=== PATIENT | female | born 1935 | race Caucasian/White ===

== ENCOUNTER 2019-04-16 09:25 | Outpatient (CLI) | payer MEDICARE, OTHER, SELFPAY ==
--- NOTE | 2019-04-19 08:04 | ONC FU_ITS ---
Dr. Muñoz Patient Follow-Up Note Patient: Alta Red Unit #: [id number]: 1935 Dicatated By: Kris Muñoz M.D.Date of Visit:Apr 16, 2019 Onc Med Follow-up/Prog Note Chief Complaint: Myeloma. History of Present Illness: This is an 83 year-old woman with IgG kappa myeloma. She had presented to Dr. Nieto on 10/24/2017 with complaints of dizziness/lightheadedness, fatigue, and anorexia. She reported that at times she felt like passing out and having to lie down. She reported having problems with memory and she complained that she had been sleeping a lot. Her CBC showed low hemoglobin at 8.8 g, white blood cell count borderline at 4300 and platelet count mildly decreased at 103,000. Her comprehensive metabolic profile showed elevated BUN and creatinine at 23 and 1.42 mg/dL and significantly elevated serum calcium at 14.5 mg/dL with albumin low at 2.5 g/dL. The calculated serum globulin was significantly elevated at 7.9 g/dL. Bone marrow aspiration/biopsy on 10/27/2017 showed hypercellular marrow with 63% plasma cells, consistent with myeloma. At that time, she was given an infusion of sodium pamidronate for the hypercalcemia, and she also was given dexamethasone 40 mg daily for 4 days. Skeletal survey on 10/27/2017 showed evidence of diffuse bone demineralization but without evidence of large osteolytic lesion. Subcentimeter lucent foci in the [place] bilaterally were felt to be consistent with osteoporosis, myelomatous lesions, or metastatic disease. Serum protein electrophoresis and 11/20/2017 showed IgG kappa paraprotein quantitating at 4.1 g/dL. The free light chain assay showed elevated free kappa light chain at 228.24 mg/L with elevated kappa/lambda ratio at 17.40. She returned on 11/16/2017 to begin treatment with Velcade/Revlimid/dexamethasone. I opted to use a weekly Velcade regimen on a 21/28 day schedule. Due to her age and renal function, the Revlimid was initiated at a reduced dosage of 10 mg daily for 21 days. The dexamethasone was reduced to 20 mg weekly. At that time, her calcium had become elevated again at 10.3 mg/dL with albumin 2.2 g/dL. Her renal function had improved with creatinine down to 1.0 mg/dL. As such, she was given zoledronic acid 3.5 mg by IV infusion. On 11/20/2017 she came in with a 2-day history of fever and chills. A specific source of infection was not identified other than her chest x-ray was suspicious for possible pneumonia. She was treated empirically with Levaquin, I did opt to put her Revlimid on hold, as she also was having diarrhea at that point. Her follow-up CBC on 11/23/2017 showed further decline in hemoglobin to 6.4 g, and the following day she was transfused 2 units of PRBC. She did receive her day 8 Velcade, and she was able to return for day 15 Velcade on 11/29/2017. Hemoglobin at that point was adequate at 9.9 g. She then continued her 2nd cycle on 12/13/2017 with the Revlimid omitted. The Velcade was again administered weekly for 3 weeks, and the dexamethasone was changed to 20 mg twice weekly. A repeat protein electrophoresis on 12/25/2017 showed significant improvement with the M protein quantitating at 0.73 g/dL. She then continued with cycle 3 of Velcade/dexamethasone on 01/11/2018, with cycle 4 on 02/07/2018, with cycle 5 on 03/06/2018, and with cycle 6 on 04/04/2018. Her repeat serum protein electrophoresis on 05/01/2018 showed 2 monoclonal protein bands which together quantitated at 0.21 g/dL compared to 0.31 g/dL on 03/06/2018. The serum free light chain assay showed normal kappa light chain at 1.28 mg/dL and normal lambda light chain at 1.52 mg/dL with the kappa/lambda ratio normal at 0.8421. She was seen for a follow-up visit on 05/02/2018, and she then began maintenance Revlimid at 5 mg daily. As of 05/29/2018 the Revlimid was put on hold due to worsening skin eruption. The skin eruption had initially continued to worsen somewhat after stopping the Revlimid, but it then gradually resolved. I had seen her for a follow-up visit on 07/17/2018. At that point she had only minimal residual M protein. She appeared stable clinically, and given the side effects she experienced with her treatment, I opted to just follow her on observation/expectant management. Her other medical illnesses include hypertension, type II diabetes with peripheral neuropathy, and degenerative arthritis. She is a nonsmoker. INTERIM HISTORY: She is seen for a scheduled visit. She has been feeling pretty good generally. Her energy is medium. She is able to do light work. ECOG score is 1. She has good appetite. Her weight has been stable. About a month ago she had a slight fever with cold. She has no hot flashes or night sweats. She has a little hacky cough. She has no shortness of breath or chest pain. She has no GI/ complaints. Bowel function remains adequate with stool softeners. She currently has no significant joint or bone pain. She sometimes has dizziness. She has neuropathy in her feet. Medications: Acetaminophen Tablet Oral PRN, AmLODIPine Besylate 1 Tablet (of 5 mg) Oral every am, Aspirin 1 (325 mg) Tablet Oral daily, Grass Fed Beef 3 (500 mg) Tablet Oral b.i.d., HydroCHLOROthiazide 1 (25 mg) Tablet Oral, Meloxicam 1 Tablet (of 15 mg) Oral daily, MetFORMIN HCl 1 Tablet (of 500 mg) Oral daily, Multivitamin Women 50+ 1 Tablet Oral daily, Potassium Chloride ER 1 Capsule (of 10 meq) Capsule, controlled release Oral daily, PreserVision AREDS 2 Tablet Oral daily, raNITIdine HCl 1 (150 mg) Tablet Oral b.i.d., Senna S 1 - 2 Tablet (of 8.6-50 mg) Oral daily, Synthroid 1 Tablet (of 150 mcg) Oral daily Allergies: EKG patches and Lisinopril. Review of Systems: Constitutional - Her energy is medium. She is doing light housework. Her appetite is good. Her weight is stable. About a month ago she had a slight fever with a cold. She has no hot flashes or night sweats. ECOG score is 1, ENMT - No sinus congestion/drainage. No mouth sores. No sore throat or difficulty swallowing, Hematologic/Lymphatic - She has some bruising on her arms, Respiratory - No shortness of breath. She has a little bit of hacky cough. No pleuritic pain or hemoptysis, Cardiovascular - No angina pain. No palpitations, Gastrointestinal - No nausea or vomiting. No heartburn or acid reflux. Her bowel function remains adequate with stool softeners. No blood in the stool or black stools, Genitourinary (F) - No dysuria or hematuria. No urinary frequency. No urgency or incontinence, Musculoskeletal - No significant joint or bone pain, Integumentary - No skin rash, Neurologic - No headache. She has some dizziness. She has neuropathy in her feet, Psychiatric - No anxiety or depression. No insomnia. Vital Signs: Performed on Apr 16, 2019 12:49 Height - 66.00 in Weight - 178 lbs (HIGH) BSA - 1.90 sq.m BMI - 28.73 Temperature - 98.5 F Pulse - 86 /min Respiration - 16 /min BP - 119/76 mm(hg) O2 Sat - 98 % Pain - 0 Physical Examination: Constitutional - She looks pretty good generally, Eyes - Sclerae nonicteric. Conjunctivae clear, ENMT - No lesions noted in the oral cavity, Hematologic/Lymphatic - No cervical, clavicular, or axillary adenopathy, Respiratory - Lungs are clear with good air movement bilaterally, Cardiovascular - Heart rhythm is regular with fairly frequent premature beats. There is a II/ systolic murmur. There is no gallop or rub noted, Abdomen - Soft. Liver and spleen are not enlarged. There is no abdominal mass or ascites noted and there is no inguinal adenopathy, Extremities - Slight edema, Integumentary - No evidence of skin eruption, Neurologic - No focal neurologic deficits noted. Lab/Imaging: Test performed on Apr 09, 2019 09:52 Sed Rate 56 mm/hr WBC 5.5 10^9/L RBC 3.85 10^12/L HGB 11.6 g/dL HCT 35.1 % MCV 91.2 fl MCH 30.1 pg MCHC 33.0 g/dL RDW 14.3 % Platelet Count 179 10^9/L MPV 10.1 fL Neutrophils (Gran) 2.56 10^9/L Lymphocytes 2.27 10^9/L Monocytes 0.42 10^9/L Eosinophils 0.20 10^9/L Basophils 0.01 10^9/L Manual Lymphocytes 42 % Manual Monocytes 8 % Manual Eosinophils 4 % Manual Basophils 0 % [place] / Lambda Ratio 8.65 Absolute Value Lambda Light Chain (Quant) 12.17 mg/dL [place] Light Chain (Quant) 105.21 mg/dL Her serum protein electrophoresis shows a significant increase in the monoclonal protein quantitating at 2.11 g/dL. Impression: 1. Patient with IgG kappa myeloma. Her bone marrow aspiration/biopsy on 10/27/2017 was hypercellular with 63% plasma cells. 2. She had anemia, renal dysfunction, and symptomatic hypercalcemia at initial presentation. Her skeletal survey showed diffuse bone demineralization, but without evidence of any large osteolytic lesions. Her other medical illnesses include: 3. Hypertension. 4. Type II diabetes. 5. Peripheral neuropathy. 6. Degenerative arthritis. 7. She has a history of nephrolithiasis. She had some improvement on initial treatment with sodium pamidronate and 4 days of high-dose dexamethasone. She then began treatment with Velcade/Revlimid/dexamethasone on 11/16/2017. The Revlimid was initiated at a reduced dosage of 10 mg daily on a 21/28 day schedule with the Velcade and dexamethasone administered weekly. At that time she also received an infusion of zoledronic acid. Her 1st cycle of treatment was complicated by a febrile illness and diarrhea. She also developed pancytopenia with worsening anemia, requiring PRBC transfusion. I was uncertain to what extent her problems may have been due to the treatment or to the underlying myeloma. Her Revlimid was put on hold at day 4. She was then able to continue treatment with Velcade and dexamethasone. As of 04/04/2018 she began her 6th cycle of treatment. Her repeat serum protein electrophoresis on 05/01/2018 showed 2 monoclonal bands which together quantitated at 0.21 g/dL. The serum free light chain assay showed normal kappa/lambda ratio. Her hemoglobin was stable at 11.2 g. As of her follow-up visit on 05/02/2018 she was still having some fatigue, but she otherwise appeared stable clinically. She then began maintenance Revlimid at 5 mg daily. It was put on hold as of 05/29/2018 due to worsening skin eruption. The skin eruption subsequently did resolve, though gradually. As of her follow-up visit in June 2018 she had only a very small amount of residual M protein, and she appeared stable clinically. Given the side effects she had experienced with her treatment, I opted to just follow her on observation/expectant management. During her subsequent follow-up her clinical status has remained stable. However, there has now been slight drop in her hemoglobin/hematocrit levels, and her protein electrophoresis studies show a significant increase in her M protein, now to 2.11 g/dL, and a significant increase in the kappa free light chain, now to 105.21 mg/L, with the kappa/lambda ratio elevated at 8.65. This is obviously consistent with progression of the myeloma. Plan: She will now proceed to a second line treatment regimen for the myeloma. I would favor using daratumumab in combination with carfilzomib and dexamethasone, but that we will be subject to verification of insurance coverage. Signed By: Kris Muñoz M.D. <<Signature on File>>
== END 2019-04-16 09:26 | disposition home or self-care (01) ==
PROVIDERS: Family Provider Family Medicine; PCP Family Medicine; Visit Provider Internal Medicine Medical Oncology
DX: C90.00 Multiple myeloma not having achieved remission (principal); M81.0 Age-related osteoporosis without current pathological fracture; I10 Essential (primary) hypertension; E11.42 Type 2 diabetes mellitus with diabetic polyneuropathy; Z79.84 Long term (current) use of oral hypoglycemic drugs; Z79.899 Other long term (current) drug therapy; Z87.442 Personal history of urinary calculi
CPT/HCPCS: 99214

== ENCOUNTER 2019-05-03 09:19 | Outpatient (CLI) | payer MEDICARE, OTHER, SELFPAY ==
--- NOTE | 2019-05-03 09:38 | USCV_ITS ---
Alta Red Age: 83 Gender: F : 1935 Exam Date: 05/03/2019 09:55 Ordering Phys: Kris Muñoz MD Technologist: Luba Stinson Exam Location: [facility] – [place] Indication: CHEMO BP: / HR: 83 Rhythm: Sinus Technical Quality: Adequate MEASUREMENTS (Male / Female) Normal Values 2D ECHO LV Diastolic Diameter PLAX 4.5 cm 4.2 - 5.9 / 3.9 - 5.3 cm LV Systolic Diameter PLAX 3.1 cm LV Chamber Size 3.6 cm IVS Diastolic Thickness 1.1 cm 0.6 - 1.0 / 0.6 - 0.9 cm IVS Systolic Thickness 1.2 cm LVPW Diastolic Thickness 1.3 cm 0.6 - 1.0 / 0.6 - 0.9 cm LVPW Systolic Thickness 1.5 cm RV Chamber Size 2.8 cm LVOT Diameter 2.0 cm LV Ejection Fraction 2D Teich 60.0 % LV Ejection Fraction MOD 2C 50.1 % LV Ejection Fraction 2C AL 51.2 % LA Diameter 4.2 cm LA Width 2.6 cm LA Height 3.6 cm RA Width 3.1 cm RA Height 3.4 cm Aorta at Sinotubular Diameter 3.0 cm M-MODE LV Diastolic Diameter MM 5.2 cm 4.2 - 5.9 / 3.9 - 5.3 cm LV Systolic Diameter MM 3.6 cm LV Ejection Fraction MM Teich 58.9 % IVS Diastolic Thickness MM 1.2 cm 0.6 - 1.0 / 0.6 - 0.9 cm IVS Systolic Thickness MM 1.3 cm LVPW Diastolic Thickness MM 1.7 cm 0.6 - 1.0 / 0.6 - 0.9 cm LVPW Systolic Thickness MM 2.6 cm RV Diastolic Diameter MM 1.7 cm Aortic Annulus Diameter 3.5 cm LA Ao Ratio MM 1.2 MV E Point Septal Separation 0.4 cm DOPPLER AV Peak Velocity 131.0 cm/s LVOT Peak Velocity 121.0 cm/s AV Area Cont Eq vti 3.1 cm squared AV Area Cont Eq pk 3.0 cm squared MV Area PHT 5.9 cm squared Mitral E to A Ratio 0.7 MV E' Velocity 5.0 cm/s Mitral E to MV E' Ratio 16.8 Mitral E to LV E' Lateral Ratio 15.9 Mitral E to LV E' Septal Ratio 18.2 TR Peak Velocity 196.4 cm/s TR Peak Gradient 15.4 mmHg TR Mean Velocity 125.9 cm/s TR Mean Gradient 8.0 mmHg TR Velocity Time Integral 41.4 cm TV Peak E Velocity 75.0 cm/s Right Atrial Pressure 3.0 mmHg Pulmonary Artery Systolic Pressu 18.4 mmHg PV Peak Velocity 100.0 cm/s RV Acceleration Time 0.1 s RV Ejection Time 0.3 s RV AcT/ET 0.4 FINDINGS Left Ventricle Normal left ventricular cavity size. Severe left ventricular hypertrophy of concentric type.left ventricular ejection fraction is estimated at 58 %. No regional wall motion abnormalities. Grade I/IV diastolic dysfunction (abnormal relaxation filling pattern), normal to mildly elevated filling pressures. There appeared to be hyperdynamic cavity with obliteration. Right Ventricle The right ventricle is normal in size and function. Right Atrium The right atrium is normal in size. Left Atrium The left atrium is normal in size. Mitral Valve Structurally normal mitral valve without significant stenosis or prolapse. There is no mitral regurgitation. Aortic Valve Structurally normal aortic valve without significant sclerosis or stenosis. There is no aortic regurgitation. Tricuspid Valve Structurally normal tricuspid valve without significant stenosis or regurgitation. Pulmonary artery systolic pressure is normal. Pulmonic Valve Structurally normal pulmonic valve without significant stenosis. There is no pulmonic regurgitation. Pericardium Normal pericardium without effusion. Aorta Normal ascending aorta dimension. CONCLUSIONS 1-Normal left ventricular cavity size. Severe left ventricular hypertrophy of concentric type.left ventricular ejection fraction is estimated at 58 %. No regional wall motion abnormalities. Grade I/IV diastolic dysfunction (abnormal relaxation filling pattern), normal to mildly elevated filling pressures. There appeared to be hyperdynamic cavity with obliteration. 2-There is no pericardial effusion. 3-No significant valve abnormalities. 4-Pulmonary artery systolic pressure is within normal limits. 5-Right atrial pressure is around 5 mm of mercury. 6-There are no prior echocardiogram studies to compare. Cristal Dillon MD (Electronically Signed) Final Date: 04 May 2019 16:47 S
== END 2019-05-03 09:20 | disposition home or self-care (01) ==
LOC: RAD 09:22
PROVIDERS: Family Provider Family Medicine; PCP Family Medicine; Visit Provider Internal Medicine Medical Oncology
DX: Z79.899 Other long term (current) drug therapy (principal); I51.9 Heart disease, unspecified; I51.7 Cardiomegaly
CPT/HCPCS: 93306

== ENCOUNTER 2019-05-15 08:11 | Outpatient (RCR) | payer MEDICARE, SELFPAY ==
[2019-05-13 16:18] LABS: Basophils % 0.3 %; Eosinophils # 0.2 10^3/uL (0.0-0.8); Eosinophils % 3.1 %; Hematocrit 34.9 % (37.0-47.0); Hemoglobin 11.1 g/dL (11.5-15.3); Lymphocytes # 2.7 10^3/uL (0.8-4.8); Lymphocytes % 43.5 %; Mean Corpuscular HGB Conc 31.8 g/dL (30.0-36.0); Mean Corpuscular Hemoglobin 30.1 pg (28.0-34.0); Mean Corpuscular Volume 94.6 fL (81-99); Mean Platelet Volume 11.1 fL (7.4-10.4); Monocytes # 0.7 10^3/uL (0.2-0.9); Monocytes % 10.6 %; Neutrophils # 2.6 10^3/uL (1.8-7.7); Neutrophils % 42.2 %; Nucleated Red Blood Cells % 0 %; Platelet Count 179 10^3/cmm (130-400); Red Blood Count 3.69 10^6/uL (4.1-5.3); Red Cell Distribution Width 13.9 % (12.1-15.1); White Blood Count 6.1 10^3/uL (4.0-10.0)
[2019-05-13 18:12] LABS: Alanine Aminotransferase 15 U/L (0-33); Albumin Level 3.2 g/dL (3.5-5.2); Alkaline Phosphatase 79 IU/L (35-105); Anion Gap 16.4 (5-19); Aspartate Amino Transferase 30 U/L (0-32); Blood Urea Nitrogen 21 mg/dL (8-23); Calcium 10.6 mg/dL (8.5-10.5); Carbon Dioxide 23 mmol/L (22-29); Chloride 106 mmol/L (98-107); Globulin 5.2 g/dL (1.3-4.6); Glucose 88 mg/dL (65-115); Immunoglobulin IGA 81 mg/dL (70-400); Immunoglobulin IGG 4019 mg/dL (700-1600); Immunoglobulin IGM 38 mg/dL (40-230); Osmolality Calculated 288 mOsm/kg (285-295); Potassium 4.4 mmol/L (3.5-5.1); Sodium 141 mmol/L (136-145); Total Bilirubin 0.5 mg/dL (0.15-1.2); Total Protein 8.4 g/dL (6.6-8.7)
[2019-05-14] MEDS: sodium chloride 0.9% 1,000 mL Bolus 100 ML IV (10:20)
[2019-05-14] MEDS: acetaminophen 325 mg Tablet 650 MG PO (10:20)
[2019-05-14] MEDS: dexamethasone 20 MG in sodium chloride 0.9% 50 ML 188 MG IV (10:36)
[2019-05-14] MEDS: LORazepam 2 mg/mL INJ 1 mL IVP (12:07)
[2019-05-15 07:27] LABS: PROTEIN, TOTAL 7.8 g/dL (6.1-8.1)
--- NOTE | 2019-05-15 10:01 | ONC FU_ITS ---
[facility] Patient Note Patient: Alta Red Unit #: [id number]: 1935 Dictated By: Otto SueDate of Visit: May 14, 2019 Onc MED Follow-Up/Prog Note Chief Complaint: Myeloma. History of Present Illness: Mrs Red is an 83 year-old woman with IgG kappa myeloma. She had presented to Dr. Nieto on 10/24/2017 with complaints of dizziness/lightheadedness, fatigue, and anorexia. She reported that at times she felt like passing out and having to lie down. She reported having problems with memory and she complained that she had been sleeping a lot. Her CBC showed low hemoglobin at 8.8 g, white blood cell count borderline at 4300 and platelet count mildly decreased at 103,000. Her comprehensive metabolic profile showed elevated BUN and creatinine at 23 and 1.42 mg/dL and significantly elevated serum calcium at 14.5 mg/dL with albumin low at 2.5 g/dL. The calculated serum globulin was significantly elevated at 7.9 g/dL. Bone marrow aspiration/biopsy on 10/27/2017 showed hypercellular marrow with 63% plasma cells, consistent with myeloma. At that time, she was given an infusion of sodium pamidronate for the hypercalcemia, and she also was given dexamethasone 40 mg daily for 4 days. Skeletal survey on 10/27/2017 showed evidence of diffuse bone demineralization but without evidence of large osteolytic lesion. Subcentimeter lucent foci in the [place] bilaterally were felt to be consistent with osteoporosis, myelomatous lesions, or metastatic disease. Serum protein electrophoresis and 11/20/2017 showed IgG kappa paraprotein quantitating at 4.1 g/dL. The free light chain assay showed elevated free kappa light chain at 228.24 mg/L with elevated kappa/lambda ratio at 17.40. She returned on 11/16/2017 to begin treatment with Velcade/Revlimid/dexamethasone. Dr Muñoz opted to use a weekly Velcade regimen on a 21/28 day schedule. Due to her age and renal function, the Revlimid was initiated at a reduced dosage of 10 mg daily for 21 days. The dexamethasone was reduced to 20 mg weekly. At that time, her calcium had become elevated again at 10.3 mg/dL with albumin 2.2 g/dL. Her renal function had improved with creatinine down to 1.0 mg/dL. As such, she was given zoledronic acid 3.5 mg by IV infusion. On 11/20/2017 she came in with a 2-day history of fever and chills. A specific source of infection was not identified other than her chest x-ray was suspicious for possible pneumonia. She was treated empirically with Levaquin, it was opted to put her Revlimid on hold, as she also was having diarrhea at that point. Her follow-up CBC on 11/23/2017 showed further decline in hemoglobin to 6.4 g, and the following day she was transfused 2 units of PRBC. She did receive her day 8 Velcade, and she was able to return for day 15 Velcade on 11/29/2017. Hemoglobin at that point was adequate at 9.9 g. She then continued her 2nd cycle on 12/13/2017 with the Revlimid omitted. The Velcade was again administered weekly for 3 weeks, and the dexamethasone was changed to 20 mg twice weekly. A repeat protein electrophoresis on 12/25/2017 showed significant improvement with the M protein quantitating at 0.73 g/dL. She then continued with cycle 3 of Velcade/dexamethasone on 01/11/2018, with cycle 4 on 02/07/2018, with cycle 5 on 03/06/2018, and with cycle 6 on 04/04/2018. Her repeat serum protein electrophoresis on 05/01/2018 showed 2 monoclonal protein bands which together quantitated at 0.21 g/dL compared to 0.31 g/dL on 03/06/2018. The serum free light chain assay showed normal kappa light chain at 1.28 mg/dL and normal lambda light chain at 1.52 mg/dL with the kappa/lambda ratio normal at 0.8421. She was seen for a follow-up visit on 05/02/2018, and she then began maintenance Revlimid at 5 mg daily. As of 05/29/2018 the Revlimid was put on hold due to worsening skin eruption. The skin eruption had initially continued to worsen somewhat after stopping the Revlimid, but it then gradually resolved. Dr Muñoz had seen her for a follow-up visit on 07/17/2018. At that point she had only minimal residual M protein. She appeared stable clinically, and given the side effects she experienced with her treatment, it was opted to just follow her on observation/expectant management. Her other medical illnesses include hypertension, type II diabetes with peripheral neuropathy, and degenerative arthritis. She is a nonsmoker. INTERIM HISTORY: At her follow-up visit on April 16, 2019, it was noted that her hemoglobin had slightly dropped but her myeloma proteins had significantly elevated with the M protein was reported at 2.11 and kappa free light chain was 105.21 (69.66 at her December 2018 visit) and the kappa/lambda ratio was elevated at 8.65 (3.66 at the December 2018 visit). Dr. Muñoz recommended resuming treatment but with daratumumab and carfilzomib and dexamethasone. Authorization was obtained from her insurance. Mrs. Red is here today to begin her first cycle of daratumumab carfilzomib and dexamethasone. She does not have a venous access device as of yet but states Dr. Muñoz had mentioned it to her. She states overall she feels pretty good. She denies any new pain. She has had no fever or chills or any signs of infection for at least the last 72 hours. She states she is eating good. She does have occasional shortness of breath but states is no different than what it normally is for her. She indicates that her bowels and bladder are normal as well. She continues to have slight neuropathy in her feet but states is no worse. She can do all of her ADLs without any assistance. Overall she looks really good and states that she feels good. She does admit admit that she does tire pretty easily but does rest and recovers well with that. Her ECOG is 1. Past Medical History: Degenerative arthritis Hypertension Hypothyroidism Nephrolithiasis Peripheral neuropathy Type II diabetes Past Surgical History: Breast reduction Excision of Adler's neuroma x 3 Hysterectomy Left bunionectomy Lithotripsy for renal stones in 1959 and in 1989 Tonsillectomy Flu shot in 2018 D&C in 2012 Hysterectomy without oophorectomy in 2011 Right total hip arthroplasty in 2011 Laparoscopic cholecystectomy in 1991 Breast reduction in 1983 Cholecystectomy in 1982 Thyroidectomy in 1959 Allergies: EKG patches, Lisinopril, and revlimd. Medications: Acetaminophen Tablet Oral PRN AmLODIPine Besylate 1 Tablet (of 5 mg) Oral every am Aspirin 1 (325 mg) Tablet Oral daily Grass Fed Beef 3 (500 mg) Tablet Oral b.i.d. HydroCHLOROthiazide 1 Tablet (of 25 mg) Oral daily on Every Other Day Meloxicam 1 Tablet (of 15 mg) Oral daily MetFORMIN HCl 1 Tablet (of 250 mg) Oral daily Multivitamin Women 50+ 1 Tablet Oral daily Omeprazole 1 Tablet (of 20 mg) Tablet, enteric coated Oral daily Potassium Chloride ER 1 Capsule (of 10 meq) Capsule, controlled release Oral daily PreserVision AREDS 2 Tablet Oral daily Senna S 1 - 2 Tablet (of 8.6-50 mg) Oral daily Synthroid 1 Tablet (of 150 mcg) Oral daily Family History: Ms. Red's mother at age 83: congestive heart failure. Ms. Red's father is alive. Ms. Red has 1 brother who is alive. She has 2 sisters: 2 alive. Father is still living at age 103. Mother with congestive heart failure at age 83. She also had been treated for breast cancer, renal cell cancer, and uterine cancer. One brother and two sisters are in good health. Social History: Ms. Red is and she is retired. Ms. Red has never smoked. She has no history of drinking. She is a nonsmoker. She does not drink alcohol. Review Of Symptoms: Constitutional Denies fevers, chills, night sweats, excessive fatigue or weight loss. Allergic/Immunologic No reactions. Eyes Denies significant visual changes. No diplopia. No amaurosis. ENMT Denies changes in hearing, sore throat, mouth sores, difficulty or changes in swallowing ability, and/or sinus drainage. Endocrine No diabetes, thyroid disease or hormone replacement. Denies hot flashes or night sweats. Hematologic/Lymphatic Denies easy bruising or bleeding. The patient denies any tender or palpable lymph nodes. Respiratory Stable dyspnea on exertion, but denies chest pain, cough or hemoptysis. Denies orthopnea. Cardiovascular Denies anginal chest pain, palpitations or orthopnea. Gastrointestinal Denies nausea, vomiting, diarrhea, GI bleeding, or constipation. Denies change in bowel habits and/or stool color, or early satiety. Genitourinary (F) No hematuria, hesitancy, incontinence, vaginal bleeding, discharge or other problems with urination. Musculoskeletal Denies joint pain or redness. No decreased range of motion. Integumentary Denies chronic rashes, inflammation, ulcerations or skin changes. Neurologic Denies headache, blurred vision, and no areas of focal weakness or numbness. Normal gait. No sensory problems. Psychiatric Denies insomnia, depression, marylin or mood swings. Vital Signs: Performed on May 14, 2019 09:16 Height - 66.00 in Weight - 182.0 lbs (HIGH) BSA - 1.92 sq.m BMI - 29.38 Temperature - 98.6 F Pulse - 80 /min Respiration - 18 /min BP - 146/62 mm(hg) (HIGH) O2 Sat - 97 % Pain - 0,1 - No physically strenuous activity, but ambulatory and able to carry out light or sedentary work (e.g. office work, light house work). (ECOG) Physical Examination: Constitutional Alert, oriented, no acute distress. Skin pink, warm and dry. Head Normocephalic; atraumatic. Eyes Conjunctivae and sclerae are clear and without icterus. Pupils are reactive and equal. ENMT Sinuses are nontender. No oral exudates, ulcers, masses, thrush or mucositis. Oropharynx clear. Tongue normal. Neck Supple without masses or thyromegaly. No jugular venous distension. Hematologic/Lymphatic No petechiae or purpura. No tender or palpable lymph nodes in the cervical or supraclavicular areas. Respiratory Lungs are clear to auscultation without rhonchi or wheezing. Cardiovascular Regular rate and rhythm of heart without murmurs,clicks, gallops or rubs. Back/Spine Non-tender to palpation. Extremities No visible deformities, no cyanosis, clubbing or edema. Musculoskeletal No tenderness or swelling, normal range of motion without obvious weakness. Integumentary No rashes or lesions.-see above Neurologic No sensory or motor deficits, normal cerebellar function, normal gait. Psychiatric Alert and oriented times three. Coherent speech. Verbalizes understanding of our discussions today. Laboratory:Test performed on May 13, 2019 07:55 WBC 6.1 10 3/uL RBC 3.69 10 6/uL HGB 11.1 g/dL HCT 34.9 % MCV 94.6 fL MCH 30.1 pg MCHC 31.8 g/dL RDW 13.9 % Platelet Count 179 10 3/cmm MPV 11.1 fL Neutrophils 2.6 10 3/uL Lymphocytes 2.7 10 3/uL Monocytes 0.7 10 3/uL Eosinophils 0.2 10 3/uL Basophils 0.0 10 3/uL Neutrophil % 42.2 % Lymphocyte % 43.5 % Monocyte % 10.6 % Eosinophil % 3.1 % Basophils % 0.3 % Test performed on Apr 09, 2019 10:09 Glucose 169 mg/dL Protein, Total 7.9 g/dL Albumin, SPE 3.61 g/dL BUN 21 mg/dL Creatinine 0.79 mg/dL Cr Clearance (Est) 69.98 mL/min Sodium 140 mmol/L Potassium 3.7 mmol/L Chloride 104 mmol/L CO2 23 mmol/L Calcium 10 mg/dL Albumin 3.2 g/dL Bilirubin, Total 0.4 mg/dL Alkaline Phosphatase 104 IU/L AST (SGOT) 30 IU/L ALT (SGPT) 15 IU/L [id number]-9-[id number] 0.26 g/dL Zjxby-2-xyvpcusu 0.77 g/dL Beta Globulin 0.86 g/dL Gamma Globulin 2.38 g/dL M-David 2.11 g/dL SPE Interpretation Significant increase in monoclonal proteinemia since prior study. Test performed on Apr 09, 2019 09:52 Sed Rate 56 mm/hr Manual Lymphocytes 42 % Manual Monocytes 8 % Manual Eosinophils 4 % Manual Basophils 0 % [place] / Lambda Ratio 8.65 Absolute Value Lambda Light Chain (Quant) 12.17 mg/dL [place] Light Chain (Quant) 105.21 mg/dL Impression: 1. Patient with IgG kappa myeloma. Her bone marrow aspiration/biopsy on 10/27/2017 was hypercellular with 63% plasma cells. 2. She had anemia, renal dysfunction, and symptomatic hypercalcemia at initial presentation. Her skeletal survey showed diffuse bone demineralization, but without evidence of any large osteolytic lesions. Her other medical illnesses include: 3. Hypertension. 4. Type II diabetes. 5. Peripheral neuropathy. 6. Degenerative arthritis. 7. She has a history of nephrolithiasis. She had some improvement on initial treatment with sodium pamidronate and 4 days of high-dose dexamethasone. She then began treatment with Velcade/Revlimid/dexamethasone on 11/16/2017. The Revlimid was initiated at a reduced dosage of 10 mg daily on a 21/28 day schedule with the Velcade and dexamethasone administered weekly. At that time she also received an infusion of zoledronic acid. Her 1st cycle of treatment was complicated by a febrile illness and diarrhea. She also developed pancytopenia with worsening anemia, requiring PRBC transfusion. It was uncertain to what extent her problems may have been due to the treatment or to the underlying myeloma. Her Revlimid was put on hold at day 4. She was then able to continue treatment with Velcade and dexamethasone. As of 04/04/2018 she began her 6th cycle of treatment. Her repeat serum protein electrophoresis on 05/01/2018 showed 2 monoclonal bands which together quantitated at 0.21 g/dL. The serum free light chain assay showed normal kappa/lambda ratio. Her hemoglobin was stable at 11.2 g. As of her follow-up visit on 05/02/2018 she was still having some fatigue, but she otherwise appeared stable clinically. She then began maintenance Revlimid at 5 mg daily. It was put on hold as of 05/29/2018 due to worsening skin eruption. The skin eruption subsequently did resolve, though gradually. As of her follow-up visit in June 2018 she had only a very small amount of residual M protein, and she appeared stable clinically. Given the side effects she had experienced with her treatment, it was opted to just follow her on observation/expectant management. During her subsequent follow-up her clinical status has remained stable. However, there has now been slight drop in her hemoglobin/hematocrit levels, and her protein electrophoresis studies show a significant increase in her M protein, now to 2.11 g/dL, and a significant increase in the kappa free light chain, now to 105.21 mg/L, with the kappa/lambda ratio elevated at 8.65. This is obviously consistent with progression of the myeloma. Dr. Muñoz has recommended resuming treatment but changing to daratumumab carfilzomib and dexamethasone. We were able to obtain verification of insurance coverage and she will plan to start her first cycle today. She does not yet have a Port-A-Cath but will make referral so that she can get this done. Plan: 1. Proceed with cycle 1 ay 1 & 2 daratumumab and carfilzomib. The daratumumab will be split into 2 doses on cycle 1. She will then resume weekly doses on day 8 and continue weekly doses for 8 doses, then every 2 weeks for 8 doses then monthly . The carfilzomib is 2 days a week, 3 out of 4 weeks. 2. For prophylaxis start: Bactrim DS 1 tablet BID on Mon and and famciclovir 500 mg daily. She is on an adult coated aspirin daily. 3. Labs from May 13, 2019 were reviewed in detail and discussed with Ms. Red and her daughter and a copy was given to them. WBC 6.1, hemoglobin 11.1 platelets 179,000 and neutrophils are 2600. Potassium 4.4 creatinine is 0.7 calcium 10.6 and LFTs are normal her alk phos is 79. Her myeloma labs are pending at present. 4. We will have weekly CBC CMP drawn via in-home lab services. Would like to have them drawn the day before her treatment if at all possible. 5. We will watch her calcium closely it is just slightly elevated at 10.6 with the normal being 8.5 to 10.5. Once we see how well she tolerates this new treatment plan we may want to discuss attempting Zometa again. She received a dose of Zometa in October 2017 with her first cycle of chemotherapy which at that time was Velcade Revlimid and dexamethasone. Her first cycle was complicated by febrile illness and diarrhea. She had pancytopenia with worsening anemia requiring transfusion services. She did continue monthly Zometa infusions until May 02, 2018 when her Velcade was stopped due to good response and she transitioned to single agent Revlimid. 6. She will have weekly follow-up visits on days of treatment. Mrs. Red is been instructed to contact us in the interim should questions or problems arise. 7. A referral for Dr Toth or Dr Bower was made-she mentioned either one would be fine with her. We will see who can see her first to get her Port placed. She will start her first cycle with peripheral IV. Addendum: I spoke with Mrs. Red and her daughter regarding her echocardiogram from 05/03/2019. 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 There were no regional wall motion abnormalities there was grade I/IV diastolic dysfunction. She has been on losartan 25 mg daily for some time but we will go ahead and increase this to 50 mg daily. She has a follow-up with Dr. Nieto next week and will discuss this further with him at that time. In the interim we will go ahead and send the losartan to her pharmacy but advised her just to double the losartan she has now as a trial run. She and her daughter verbalized understanding. That no questions at this time. Signed By: Otto Sue-, AOCNP Kris Muñoz MD <<Signature on File>>
[2019-05-15] MEDS: sodium chloride 0.9% 1,000 mL Bolus 100 ML IV (10:05)
[2019-05-15] MEDS: acetaminophen 325 mg Tablet 650 MG PO (10:05)
[2019-05-15] MEDS: dexamethasone 20 MG in sodium chloride 0.9% 50 ML 188 MG IV (10:15)
[2019-05-15 11:56] LABS: KAPPA LIGHT CHAIN, FREE, SERUM 139.3 mg/L (3.3-19.4); KAPPA/LAMBDA LIGHT CHAINS FREE 13.27 (0.26-1.65); LAMBDA LIGHT CHAIN, FREE, SERU 10.5 mg/L (5.7-26.3)
[2019-05-15 12:53] LABS: ABNORMAL PROTEIN BAND 1 2.9 g/dL (NONE DETECTED); ALBUMIN 3.2 g/dL (3.8-4.8); ALPHA 1 GLOBULIN 0.3 g/dL (0.2-0.3); ALPHA 2 GLOBULIN 0.7 g/dL (0.5-0.9); BETA 1 GLOBULIN 0.4 g/dL (0.4-0.6); BETA 2 GLOBULIN 0.2 g/dL (0.2-0.5)
== END 2019-05-16 12:00 | disposition home or self-care (01) ==
LOC: ONCMED 08:11
PROVIDERS: Family Provider Family Medicine; PCP Family Medicine; Visit Provider Nurse Practitioner
DX: Z51.12 Encounter for antineoplastic immunotherapy (principal); C90.00 Multiple myeloma not having achieved remission; I10 Essential (primary) hypertension; E11.42 Type 2 diabetes mellitus with diabetic polyneuropathy; M19.90 Unspecified osteoarthritis, unspecified site; I51.7 Cardiomegaly; E89.0 Postprocedural hypothyroidism; Z79.84 Long term (current) use of oral hypoglycemic drugs; Z79.899 Other long term (current) drug therapy; Z87.442 Personal history of urinary calculi; Z96.641 Presence of right artificial hip joint
CPT/HCPCS: 80053; 82784; 83883; 84155; 84165; 85025; 96361; 96367; 96368; 96375; 96413; 96415; 96417; 99214; J1100; J1200; J2060; J2405; J7030; J7040; J9047; J9145

== ENCOUNTER 2019-05-16 12:09 | Inpatient (IN) | payer MEDICARE, SELFPAY ==
[2019-05-16] VITALS (34 sets, daily range): BP systolic 76–181; BP diastolic 47–122; PULSE 82–146; RESP 14–42; TEMP 36.6–38.4; O2SAT 76–100; BMI 29.0
--- NOTE | 2019-05-16 | XR_ITS ---
WS: [id number] XR chest 1V portable [id number] REASON FOR EXAM: ET PLACEMENT FINDINGS: Endotracheal tube is seen in the position the tube is 1 cm above the sonia. There is evidence of alveolar edema particularly in the right lung with scattered pulmonary edema [place] aterally. The overall alveolar edema suggest aspiration. There is cardiomegaly seen. XR/XR chest 1V portable [id number] IMPRESSION: Endotracheal tube seen at approximately 1 cm above the sonia. Feeding tube good position Alveolar infiltrate on the right suggest aspiration There is mild to moderate congestion also seen..
--- NOTE | 2019-05-16 12:24 | ED_ITS ---
Entered by Radha Godoy, acting as scribe for Ronda Apple DO HPI - Allergic Reaction General: Chief complaint: Shortness of Breath/Dyspnea Stated complaint: SOB pos reaction to chemo Time Seen by Provider: 05/16/19 12:24 Source: patient and family Mode of arrival: ambulatory Limitations: no limitations History of Present Illness: HPI narrative: 83 yo female presents with possible allergic reaction to chemo. pt states last night this started. pt states she has had shortness of breath, cough and fever. pt states she has had swelling to bilateral legs. pt denies any other symptoms at this time. 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) Associated symptoms: Reports difficulty breathing and other (fever); Deny abdominal pain, nausea or vomiting Severity: moderate Treatment prior to arrival: oxygen Previous Allergic Reaction History: none Review of Systems General: Reports: 10 or more systems reviewed and unremarkable except in HPI and below Const: Reports: fever, chills, body aches and fatigue ENMT: Denies: throat pain Card: Denies: chest pain GI: Denies: abdominal pain, nausea, vomiting, diarrhea, constipation or blood in stool : Denies: difficulty urinating Musc: Denies: back pain or extremity swelling Skin/Breast: Denies: rash Neuro: Denies: headache, numbness in extremities or weakness in extremities PFS ED PFSH: Social History Smoking and tobacco status: never smoked Physical Exam Const: COMMON NORMALS: no apparent distress and oriented x3 GENERAL APPEARANCE: cooperative; not in distress HENMT: COMMON NORMALS: normocephalic HEAD & SCALP: normal to inspection and normocephalic MOUTH: oral and palatal mucosa normal and lip normal THROAT: posterior oropharynx normal and tonsils normal Neck/C-Spine: COMMON NORMALS: full ROM, no lymphadenopathy, supple and no meningeal signs GENERAL: Yes normal visual inspection and Yes trachea midline Chest: COMMONS NORMALS: inspection of chest normal Resp: EFFORT & INSPECTION: Yes respiratory distress and Yes decreased respiratory effort AUSCULTATION: rales, rhonchi and wheezes Cardio: COMMON NORMALS: regular rate, regular rhythm, S1 normal heart sound, S2 normal heart sound and no murmurs RATE: regular rate and tachycardic RHYTHM: regular rhythm HEART SOUNDS: S1 normal and S2 normal PERIPHERAL PULSES: radial pulses present and dorsalis pedis pulses present GI: COMMON NORMALS: normal to inspection, nondistended, normoactive bowel sounds, soft to palpation and non-tender INSPECTION: Yes normal to inspection AUSCULTATION: Yes normoactive bowel sounds PALPATION: Yes soft, No tender, No guarding and No rigid RECTAL EXAM: deferred : COMMON NORMALS: Yes no CVA tenderness BLADDER/KIDNEY EXAM: Yes no CVA tenderness Back/Pelvis: COMMON NORMALS: no CVA tenderness Extremity: COMMON NORMALS: normal to inspection, full ROM, normal capillary refill, no calf tenderness and no pedal edema GENERAL: Yes edema (plus 2 on Right, plus 1 on Left) Neuro: COMMON NORMALS: oriented x3, CN's II-XII intact bilaterally, moves all extremities and no focal motor deficits MENINGEAL SIGNS: Yes no meningeal signs Skin: COMMON NORMALS: no rashes or lesions noted GENERAL SKIN EXAM: no rashes or lesions noted Course Vital Signs: Vital signs: Vital Signs Temperature 101 F H 05/16/19 16:40 Pulse Rate 89 05/16/19 16:52 Respiratory Rate 18 05/16/19 16:52 Blood Pressure 143/78 05/16/19 16:52 Pulse Oximetry 83 L 05/16/19 16:52 MDM - Allergic Reaction MDM Narrative: Medical decision making narrative: I have spoken to Dr Muñoz at 12:35pm and he states the pt may have a reaction to the new chemo and agrees with benadryl, solu-medrol and pepcid and to rule out PE as well. [facility] rec that if her influenz test comes back negative we will test her for covid-19 (Nanda from [facility] at [phone]) CXR shows pulm edema and possible low grade pneumonia. 1406: pt is not really improving with BIPAP and with her significant resp distress and cxr we will need to intubate. calling Katarzyna Bates and [facility] back, Dr Powell is aware that she will need to go to icu and that pt has significant possibility of covid-19. 1500:I intubated the pt with 8.0 ettube using glidescope, preox, no bag valve mask or high flow o2 due to possible caronavirus, pt tolerated well, used 3 mac with stylet, cuff inflated at 24 at lip, cxr showed deep by 1cm so pulled it back, good equal breath sounds, color change on et co2, sats good, 1 attempt, no comp, etomidate 30mg and succ 100mg given. I did not give iv bolus due to cxr showing fluid overload pts bun/cr too high for iv contrast and she is high risk for pe so I gave her a dose of lovenox 1mg/kg, waiting for [place] 151 Dr Johnson states he will see the pt when he is done with his clinic 151 Dr Gilbert is coming to see pt now Lab Data: Attestation: I reviewed the patient's lab results. Labs: Lab Results 05/16/19 05/16/19 05/16/19 Range/Units 12:46 12:46 12:46 WBC 7.1 (4.0-10.0) 10^3/ uL RBC 3.29 L (4.1-5.3) 10^6/u L Hgb 10.0 L (11.5-15.3) g/dL Hct 31.4 L (37.0-47.0) % MCV 95.4 (81-99) fL MCH 30.4 (28.0-34.0) pg MCHC 31.8 (30.0-36.0) g/dL RDW 15.2 H (12.1-15.1) % Plt Count 67 L (130-400) 10^3/c mm MPV 11.0 H (7.4-10.4) fL Neut % (Auto) 88.2 % Lymph % (Auto) 7.2 % Tucker % (Auto) 2.7 % Eos % (Auto) 0.4 % Baso % (Auto) 0.1 % Neut # (Auto) 6.3 (1.8-7.7) 10^3/u L Lymph # (Auto) 0.5 L (0.8-4.8) 10^3/u L Tucker # (Auto) 0.2 (0.2-0.9) 10^3/u L Eos # (Auto) 0.0 (0.0-0.8) 10^3/u L Baso # (Auto) 0.0 (0.0-0.1) 10^3/u L Nucleated RBC % (a uto) 1.0 % Nucleated RBCs # 0.1 /100WBC Specimen Type Sample Site ABG pH (7.35-7.45) ABG pCO2 (35-45) mmHg ABG pO2 (80.0-100.0) mmH g ABG HCO3 (22-26) mmol/L ABG O2 Saturation ABG Base Excess (-2.0-2.0) mmol/ L Diogo Test A-a O2 Gradient (5-10) mmHg Hematocrit (37-47) % Hgb O2 Saturation (95-100) % Carboxyhemoglobin (0.4-20.1) %THgb Methemoglobin (0.4-1.5) % Total Hemoglobin (12-16) g/dL Ionized Calcium (1.1-1.4) mmol/L Respiration Rate % O2 Delivery Device FiO2 % Tidal Volume Bank Worker ID Sodium 143 (136-145) mmol/L Potassium 4.1 (3.5-5.1) mmol/L Chloride 109 H (98-107) mmol/L Carbon Dioxide 17 L (22-29) mmol/L Anion Gap 21.1 H (5-19) BUN 43 H (8-23) mg/dL Creatinine 1.9 H (0.5-0.9) mg/dL Glucose 165 H (65-115) mg/dL Calculated Osmolal ity 298 H (285-295) mOsm/k g Lactate 4.4 H* (0.5-2.2) mmol/L Calcium 9.5 (8.5-10.5) mg/dL Total Bilirubin 0.4 (0.15-1.2) mg/dL AST 72 H (0-32) U/L ALT 21 (0-33) U/L Alkaline Phosphata se 77 (35-105) IU/L Troponin T Baselin e (0-10) ng/mL C-Reactive Protein (0.0-4.9) mg/L NT-Pro-B Natriuret Pep 67355 H (0-450) pg/mL Total Protein 7.5 (6.6-8.7) g/dL Albumin 3.0 L (3.5-5.2) g/dL Globulin 4.5 (1.3-4.6) g/dL Procalcitonin (0-0.5) ng/mL Influenza Type A A g (Negative) POC Influenza B Ag (Negative) 05/16/19 05/16/19 05/16/19 Range/Units 12:46 13:12 13:29 WBC (4.0-10.0) 10^3/ uL RBC (4.1-5.3) 10^6/u L Hgb (11.5-15.3) g/dL Hct (37.0-47.0) % MCV (81-99) fL MCH (28.0-34.0) pg MCHC (30.0-36.0) g/dL RDW (12.1-15.1) % Plt Count (130-400) 10^3/c mm MPV (7.4-10.4) fL Neut % (Auto) % Lymph % (Auto) % Tucker % (Auto) % Eos % (Auto) % Baso % (Auto) % Neut # (Auto) (1.8-7.7) 10^3/u L Lymph # (Auto) (0.8-4.8) 10^3/u L Tucker # (Auto) (0.2-0.9) 10^3/u L Eos # (Auto) (0.0-0.8) 10^3/u L Baso # (Auto) (0.0-0.1) 10^3/u L Nucleated RBC % (a uto) % Nucleated RBCs # /100WBC Specimen Type Arterial Sample Site Radial, right ABG pH 7.41 (7.35-7.45) ABG pCO2 28.6 L (35-45) mmHg ABG pO2 84.5 (80.0-100.0) mmH g ABG HCO3 17.9 L (22-26) mmol/L ABG O2 Saturation 97.5 ABG Base Excess -5.8 L (-2.0-2.0) mmol/ L Diogo Test Pos A-a O2 Gradient 157.9 H (5-10) mmHg Hematocrit 31.5 L (37-47) % Hgb O2 Saturation 96.1 (95-100) % Carboxyhemoglobin 1.3 (0.4-20.1) %THgb Methemoglobin 0.2 L (0.4-1.5) % Total Hemoglobin 10.3 L (12-16) g/dL Ionized Calcium 1.2 (1.1-1.4) mmol/L Respiration Rate % O2 Delivery Device Bipap FiO2 40.0 % Tidal Volume Bank Worker ID cak Sodium 141.0 (136-145) mmol/L Potassium 3.8 (3.5-5.1) mmol/L Chloride (98-107) mmol/L Carbon Dioxide (22-29) mmol/L Anion Gap (5-19) BUN (8-23) mg/dL Creatinine (0.5-0.9) mg/dL Glucose 165.0 H (65-115) mg/dL Calculated Osmolal ity (285-295) mOsm/k g Lactate (0.5-2.2) mmol/L Calcium (8.5-10.5) mg/dL Total Bilirubin (0.15-1.2) mg/dL AST (0-32) U/L ALT (0-33) U/L Alkaline Phosphata se (35-105) IU/L Troponin T Baselin e (0-10) ng/mL C-Reactive Protein 48.0 H (0.0-4.9) mg/L NT-Pro-B Natriuret Pep (0-450) pg/mL Total Protein (6.6-8.7) g/dL Albumin (3.5-5.2) g/dL Globulin (1.3-4.6) g/dL Procalcitonin 14.63 H (0-0.5) ng/mL Influenza Type A A g Negative (Negative) POC Influenza B Ag Negative (Negative) 05/16/19 05/16/19 Range/Units 15:23 15:52 WBC (4.0-10.0) 10^3/ uL RBC (4.1-5.3) 10^6/u L Hgb (11.5-15.3) g/dL Hct (37.0-47.0) % MCV (81-99) fL MCH (28.0-34.0) pg MCHC (30.0-36.0) g/dL RDW (12.1-15.1) % Plt Count (130-400) 10^3/c mm MPV (7.4-10.4) fL Neut % (Auto) % Lymph % (Auto) % Tucker % (Auto) % Eos % (Auto) % Baso % (Auto) % Neut # (Auto) (1.8-7.7) 10^3/u L Lymph # (Auto) (0.8-4.8) 10^3/u L Tucker # (Auto) (0.2-0.9) 10^3/u L Eos # (Auto) (0.0-0.8) 10^3/u L Baso # (Auto) (0.0-0.1) 10^3/u L Nucleated RBC % (a uto) % Nucleated RBCs # /100WBC Specimen Type Arterial Sample Site Radial, left ABG pH 7.19 L (7.35-7.45) ABG pCO2 38.6 (35-45) mmHg ABG pO2 81.0 (80.0-100.0) mmH g ABG HCO3 14.7 L (22-26) mmol/L ABG O2 Saturation 93.5 ABG Base Excess -12.8 L (-2.0-2.0) mmol/ L Diogo Test Pos A-a O2 Gradient 565.9 H (5-10) mmHg Hematocrit 34.8 L (37-47) % Hgb O2 Saturation 91.9 L (95-100) % Carboxyhemoglobin 0.8 (0.4-20.1) %THgb Methemoglobin 0.9 (0.4-1.5) % Total Hemoglobin 11.3 L (12-16) g/dL Ionized Calcium 1.1 (1.1-1.4) mmol/L Respiration Rate 14.0 % O2 Delivery Device Vent FiO2 100.0 % Tidal Volume 0.5 Bank Worker ID jmn Sodium 141.0 (136-145) mmol/L Potassium 4.7 (3.5-5.1) mmol/L Chloride (98-107) mmol/L Carbon Dioxide (22-29) mmol/L Anion Gap (5-19) BUN (8-23) mg/dL Creatinine (0.5-0.9) mg/dL Glucose 297.0 H (65-115) mg/dL Calculated Osmolal ity (285-295) mOsm/k g Lactate (0.5-2.2) mmol/L Calcium (8.5-10.5) mg/dL Total Bilirubin (0.15-1.2) mg/dL AST (0-32) U/L ALT (0-33) U/L Alkaline Phosphata se (35-105) IU/L Troponin T Baselhardy e 518 H* (0-10) ng/mL C-Reactive Protein (0.0-4.9) mg/L NT-Pro-B Natriuret Pep (0-450) pg/mL Total Protein (6.6-8.7) g/dL Albumin (3.5-5.2) g/dL Globulin (1.3-4.6) g/dL Procalcitonin (0-0.5) ng/mL Influenza Type A A g (Negative) POC Influenza B Ag (Negative) Imaging Data^: CXR: Radiologist's impression: Signed Patient: Alta Red #: [id number] : 1936Acct#:[id number] Age/Sex: 83 / FADM Date: 05/16/19 Loc: ERRoom/Bed: Attending Dr: Ordering Provider/Ordering MD: Ronda Apple DO Date of Service: 05/16/19 Procedure(s): XR chest 1V portable [id number] Accession Number(s): [id number] Report Number: [id number] WS: [id number] XR chest 1V portable [id number] REASON FOR EXAM: pneumonia FINDINGS: The cardiac silhouette is enlarged. There is evidence of diffuse infiltrates throughout both lung garcia appear to be pulmonary edema. Comparisons were made to previous exam of 2018. There is evidence also shaggy ill-defined nodules throughout both lung agrcia suggesting low-grade pneumonia. XR/XR chest 1V portable [id number] IMPRESSION: Acute pulmonary edema Small areas suggesting also shaggy ill-defined densities suggesting low-grade pneumonia Arteriosclerotic heart disease. Dictated By:Cody Lowe DO Signed By:Cody Lowe DOSigned Date/Time:05/16/19 1309 DD/ 1308 Critical Care Time Critical Care Time: Critical Care Time: Yes Total Critical Care Time: 50 Attestation: This case had a high probability of a clinically significant, sudden, or life threatening deterioration of this patient's condition which required my full and direct attention, intervention and personal management. Discharge Plan Discharge Patient Disposition: Admitted As Inpatient Clinical Impression: Immunosuppressed due to chemotherapy, Acute kidney injury Respiratory failure with hypoxia Qualifiers: Chronicity: acute Qualified Code(s): J96.01 - Acute respiratory failure with hypoxia Pneumonia Qualifiers: Pneumonia type: due to unspecified organism Laterality: bilateral Lung location: unspecified part of lung Qualified Code(s): J18.9 - Pneumonia, unspecified organism Multiple myeloma Qualifiers: Multiple myeloma remission status: not in remission Qualified Code(s): C90.00 - Multiple myeloma not having achieved remission Sepsis Qualifiers: Sepsis type: sepsis due to unspecified organism Sepsis acute organ dysfunction status: with acute organ dysfunction Severe sepsis acute organ dysfunction type: acute respiratory failure Acute respiratory failure type: with hypoxia Severe sepsis shock status: without septic shock Qualified Code(s): A41.9 - Sepsis, unspecified organism Condition: Stable Referrals: Saul Nieto Jr, MD [Primary Care Provider] - Coding Level of Care Code ED Family Readiness Support Assistant for Chg Fwd Exam Comprehensive The documentation recorded by the Walt tony Bridget Annette, accurately reflects the service I personally performed and the decisions made by me, Ronda Apple DO
--- NOTE | 2019-05-16 12:32 | XR_ITS ---
WS: [id number] XR chest 1V portable [id number] REASON FOR EXAM: pneumonia FINDINGS: The cardiac silhouette is enlarged. There is evidence of diffuse infiltrates throughout both lung garcia appear to be pulmonary edema. Co mparisons were made to previous exam of 2018. There is evidence also shaggy ill-defined nodules throughout both lung garcia suggesting low-grade pn eumonia. XR/XR chest 1V portable [id number] IMPRESSION: Acute pulmonary edema Small areas suggesting also shaggy ill-defined densities suggesting low-grade p neumonia Arteriosclerotic heart disease.
--- NOTE | 2019-05-16 12:32 | ECG_ITS ---
Measurements Intervals [place] Rate: 112 P: -70 TN: 98 QRS: -3 QRSD: 88 T: 82 QT: 326 QTc: 447 Sinus Tachycardia with short TN interval ANTEROSEPTAL MYOCARDIAL INFARCTION , OF INDETERMINATE AGE [40+ ms Q WAVE IN V1-V4] No previous ECG available for comparison Electronically Signed On 05-17-2019 8:49:29 CDT by Hayley Dillon [email or web address]
[2019-05-16 13:01] LABS: Basophils % 0.1 %; Eosinophils % 0.4 %; Hematocrit 31.4 % (37.0-47.0); Lymphocytes # 0.5 10^3/uL (0.8-4.8); Lymphocytes % 7.2 %; Mean Corpuscular HGB Conc 31.8 g/dL (30.0-36.0); Mean Corpuscular Hemoglobin 30.4 pg (28.0-34.0); Mean Corpuscular Volume 95.4 fL (81-99); Monocytes # 0.2 10^3/uL (0.2-0.9); Monocytes % 2.7 %; Neutrophils # 6.3 10^3/uL (1.8-7.7); Neutrophils % 88.2 %; Nucleated Red Blood Cells # 0.1 /100WBC; Platelet Count 67 10^3/cmm (130-400); Red Blood Count 3.29 10^6/uL (4.1-5.3); Red Cell Distribution Width 15.2 % (12.1-15.1); White Blood Count 7.1 10^3/uL (4.0-10.0)
[2019-05-16] MEDS: diphenhydrAMINE 50 mg/mL SDV 1mL IVP (13:01)
[2019-05-16] MEDS: famotidine 20 mg/2 mL INJ 40 MG IVP (13:05)
[2019-05-16 13:28] LABS: Lactate (Lactic Acid level) 4.4 mmol/L (0.5-2.2)
[2019-05-16] MEDS: ipratropium 0.5 mg/2.5 mL Neb 0.25 MG INHALATION (13:28)
[2019-05-16] MEDS: acetaminophen 500 mg Tablet 1000 MG PO (13:34)
[2019-05-16 13:35] LABS: Alanine Aminotransferase 21 U/L (0-33); Alkaline Phosphatase 77 IU/L (35-105); Anion Gap 21.1 (5-19); Aspartate Amino Transferase 72 U/L (0-32); Blood Urea Nitrogen 43 mg/dL (8-23); Calcium 9.5 mg/dL (8.5-10.5); Carbon Dioxide 17 mmol/L (22-29); Chloride 109 mmol/L (98-107); Globulin 4.5 g/dL (1.3-4.6); Glucose 165 mg/dL (65-115); NT Pro B Type Natriuretic Pept 17040 pg/mL (0-450); Osmolality Calculated 298 mOsm/kg (285-295); Potassium 4.1 mmol/L (3.5-5.1); Sodium 143 mmol/L (136-145); Total Bilirubin 0.4 mg/dL (0.15-1.2); Total Protein 7.5 g/dL (6.6-8.7)
[2019-05-16 13:40] LABS: ABG PCO2 28.6 mmHg (35-45); ABG PH Result 7.41 (7.35-7.45); Alveolar-Arterial Oxygen Gradi 157.9 mmHg (5-10); Arterial Blood Gas Hematocrit 31.5 % (37-47); Base Excess ABG -5.8 mmol/L (-2.0-2.0); Blood Gas Allen Test Pos; Blood Gas Sample Site Radial, right; Blood Gas Sample Type Arterial; Carboxyhemoglobin 1.3 %THgb (0.4-20.1); HCO3 ABG 17.9 mmol/L (22-26); HGB O2 Sat 96.1 % (95-100); Ionized Calcium Level - ABG 1.2 mmol/L (1.1-1.4); Methemoglobin 0.2 % (0.4-1.5); Oxygen Device BIPAP; Oxygen Saturation ABG 97.5; PO2 ABG 84.5 mmHg (80.0-100.0); Potassium Level - ABG 3.8 mmol/L (3.5-5.0); Total Hemoglobin 10.3 g/dL (12-16)
[2019-05-16 14:04] LABS: Influenza A by IFA Negative (Negative); Influenza B by IFA Negative (Negative)
[2019-05-16] MEDS: succinylcholine 20 mg/mL SDV 10mL 100 MG IVP (14:41)
[2019-05-16] MEDS: vecuronium 10 mg SDV IVP (14:55)
[2019-05-16] MEDS: levofloxacin-dextrose 5 % 750 MG/150 ML PREMIX 150 MG IV (15:00)
[2019-05-16] MEDS: propofol 1,000 MG/100 ML INJ 4.5 MG (15:10)
[2019-05-16] MEDS: midazolam 1 mg/mL INJ 2 mL 3 MG IVP (15:20)
--- NOTE | 2019-05-16 15:22 | ECG_ITS ---
Measurements Intervals [place] Rate: 145 P: SC: 0 QRS: -63 QRSD: 118 T: 99 QT: 300 QTc: 467 SUPRAVENTRICULAR TACHYCARDIA Probable atrial flutter with RVR IVCD LEFT AXIS DEVIATION [QRS AXIS < -30] POSSIBLE RIGHT VENTRICULAR CONDUCTION DELAY [RSR (QR) IN V1/V2] ANTEROSEPTAL MYOCARDIAL INFARCTION , POSSIBLY ACUTE [40+ ms Q WAVE IN V1-V4] ACUTE MT No previous ECG available for comparison Electronically Signed On 05-17-2019 8:47:42 CDT by Hayley Dillon [email or web address]
[2019-05-16] MEDS: enoxaparin 80 mg/0.8 mL Syringe SUBCUT (15:33)
[2019-05-16] MEDS: ipratropium-albuterol 3 mL Neb INHALATION ×3 (15:34→22:22)
[2019-05-16 15:35] LABS: ABG PCO2 38.6 mmHg (35-45); ABG PH Result 7.19 (7.35-7.45); Alveolar-Arterial Oxygen Gradi 565.9 mmHg (5-10); Arterial Blood Gas Hematocrit 34.8 % (37-47); Base Excess ABG -12.8 mmol/L (-2.0-2.0); Blood Gas Allen Test Pos; Blood Gas Sample Site Radial, left; Blood Gas Sample Type Arterial; Blood Gas Tidal Volume 0.5; Carboxyhemoglobin 0.8 %THgb (0.4-20.1); HCO3 ABG 14.7 mmol/L (22-26); HGB O2 Sat 91.9 % (95-100); Ionized Calcium Level - ABG 1.1 mmol/L (1.1-1.4); Methemoglobin 0.9 % (0.4-1.5); Oxygen Device VENT; Oxygen Saturation ABG 93.5; Potassium Level - ABG 4.7 mmol/L (3.5-5.0); Total Hemoglobin 11.3 g/dL (12-16)
[2019-05-16] MEDS: FUROsemide 10 mg/mL SDV 10mL 80 MG IVP (15:35)
[2019-05-16] MEDS: vancomycin 1,000 MG in sodium chloride 0.9% 250 ML 250 MG IV (15:50)
[2019-05-16 16:24] LABS: Troponin(5th) Baseline 518 ng/mL (0-10)
[2019-05-16] MEDS: piperacillin-tazobactam 4.5 GM in sodium chloride 0.9% (plus) 50 ML IV (16:24)
[2019-05-16 16:27] LABS: Procalcitonin 14.63 ng/mL (0-0.5)
[2019-05-16] MEDS: metoprolol tartrate 1 mg/1 mL SDV 5 mL 5 MG IV (16:45)
--- NOTE | 2019-05-16 16:52 | PC.NURSE ---
Respiratory at patients bedside administering a treatment due to oxygen dropping low. Respiratory tried suctioning and repositioning without any increase of SpO2
[2019-05-16 16:58] LABS: ABG PCO2 36.8 mmHg (35-45); Arterial Blood Gas Hematocrit 34.8 % (37-47); Base Excess ABG -15.1 mmol/L (-2.0-2.0); Blood Gas Allen Test Pos; Blood Gas Sample Site Radial, left; Blood Gas Sample Type Arterial; Blood Gas Tidal Volume 0.5; HCO3 ABG 12.8 mmol/L (22-26); Oxygen Device VENT; PO2 ABG 55.1 mmHg (80.0-100.0)
[2019-05-16 16:59] LABS: ABG PH Result 7.15 (7.35-7.45)
[2019-05-16] MEDS: bumetanide 25 MG in empty flexible container 1 EACH 4 MG IV (17:00)
[2019-05-16] MEDS: sodium bicarbonate 8.4% 1 mEq/mL 50mL Syr 50 MEQ IVP (17:38)
--- NOTE | 2019-05-16 17:55 | PM.HP ---
Providers/Chief Complaint Admitting Physician: Otto Gilbert MD Primary Care Provider: Saul Nieto Jr, MD Chief Complaint: SOB pos reaction to chemo History of Present Illness Alta Red is a 83 year old female with past medical history of IgG kappa myeloma on chemotherapy, hypertension, type 2 diabetes, peripheral neuropathy, degenerative arthritis who presents to the emergency room due to complaints of cough, shortness of breath, fevers. Currently patient is intubated, on a ventilator, and mostly history was obtained by patient's daughter, and secondhand accounts from ER physician staff. According to patient's daughter, patient had finished therapy at around 4 PM, she had received daratumuab and carfilzomab, Decadron, she was a bit lightheaded, but dizzy after receiving chemotherapy. Later on in the evening, patient had complaints of fevers, cough, shortness of breath, she went to bed. She lives in [place], with her , her daughter checks up on her. Patient woke up this morning with complaints of fevers as high as 103, cough nonproductive, shortness of breath, shortness of breath with minimal exertion, lightheadedness, dizziness. Patient does not have any history of CAD, no history of CHF. She recently had a cardiac echocardiogram that showed mild diastolic heart failure, and LVH. No history of COPD, no history of asthma, no sick contacts, she does go to [employer], no known contacts there, she did go to [place] in late March to be for her during her cataract surgery, no sick contacts at home, she does have a daughter on chemotherapy for breast cancer, but no recent contact, no exposure to grandkids, no known exposure to individuals who tested positive for covid 19, no travel, no known exposure to people who have traveled. According to ER physician and staff, patient was brought in on a wheelchair, was able to get up from the wheelchair, into the gurney, had complaints of cough and shortness of breath, her ABG showed mild hypoxic respiratory failure, the patient went into respiratory distress, requiring intubation, patient was successfully intubated in the emergency room, placed on a ventilator, she requires high oxygen requirements, PEEP of 10, tidal volume of 500, saturations are in the low 80s, patient was in SVT, received 5 mg of metoprolol, heart rates down 90s to 100, normal sinus rhythm, patient received 80 mg of Lasix in the emergency room, has had minimal urine output, put on a Bumex drip on minimal urine output, and propofol drip, receiving broad-spectrum antibiotics Patient's daughter is at bedside, currently patient is a full code, they want to continue all interventions including central line, arterial line, chest compressions, intubation, unless her quality of life and likelihood of meaningful recovery is poor and unlikely. As patient has not produced a lot of urine output, I did broach the subject of a dialysis catheter placement as patient has evidence of acute tubular necrosis, patient daughter states that she will think about this. Review of Systems Const: Reports: fever, chills, fatigue and malaise ENMT: Denies: nasal congestion Resp: Reports: shortness of breath; Denies: non-productive cough GI: Denies: abdominal pain, nausea, vomiting, vomiting blood, diarrhea or constipation Musc: Denies: neck pain or back pain Skin/Breast: Denies: rash Neuro: Denies: headache, dizziness or vertigo Endo: Denies: excessive urination or excessive thirst Medications/Allergies Home Medications Medication Instructions Recorded Confirmed Last Taken Type losartan 25 mg PO DAILY 05/16/19 05/16/19 05/15/19 History omeprazole 20 mg PO DAILY 05/16/19 05/16/19 05/15/19 History Allergies Allergy/AdvReac Type Severity Reaction Status Date / Time lenalidomide [From Revlimid] Allergy ALGY-Rash Verified 05/16/19 12:42 PFSH Acute PFSH: Medical History (Updated 05/16/19 @ 18:20 by Otto Gilbert MD) Arthritis Diabetes History of nephrolithiasis Hypertension Peripheral neuropathy Surgical History (Updated 05/16/19 @ 18:12 by Otto Gilbert MD) H/O: hysterectomy History of cholecystectomy Social History Smoking and tobacco status: never smoked Vitals/I&O/Wt Last Vital Signs Temp 101 F H 05/16/19 16:40 Pulse 110 H 05/16/19 17:45 Resp 24 H 05/16/19 17:45 BP 126/76 05/16/19 17:45 Pulse Ox 87 L 05/16/19 17:45 05/16/19 05/16/19 05/16/19 06:59 14:59 22:59 Intake Total 210.818 / 210.818 Balance 210.818 / 210.818 Weight last 48 hrs Weight 81.647 kg Physical Exam Const: OTHER: Intubated, sedated, has pupillary reflexes HENMT: COMMON NORMALS: normocephalic HEAD & SCALP: normocephalic Eye: COMMON NORMALS: PERRL GENERAL EYE: normal appearance of both eyes PUPIL: Yes PERRL DIRECT OPHTHALMOSCOPY: Yes no papilledema Neck/C-Spine: COMMON NORMALS: full ROM, no lymphadenopathy, no JVD and thyroid normal THYROID: thyroid normal Lymph: LYMPHATIC: no lymphadenopathy noted Resp: COMMON NORMALS: normal respiratory effort, no retractions, no use of accessory muscles and clear to auscultation bilaterally AUSCULTATION: clear to auscultation bilaterally Cardio: COMMON NORMALS: no JVD, regular rate, regular rhythm, S1 normal heart sound, S2 normal heart sound, no gallops, no clicks and no murmurs RATE: regular rate RHYTHM: regular rhythm HEART SOUNDS: S1 normal and S2 normal GI: COMMON NORMALS: normal to inspection, nondistended, normoactive bowel sounds, soft to palpation, non-tender and no hepatosplenomegaly PALPATION: Yes soft and Yes no hepatosplenomegaly Extremity: COMMON NORMALS: normal to inspection, full ROM and no pedal edema Neuro: OTHER: Intubated and sedated Urinary Catheter Management^: Johnson: Cath Placed During This Visit: yes Reason for Continuing Indwelling Catheter: Accurate Measurement of Urinary Output in Critically Ill Patients Urinary Catheter Date of Insertion: 05/16/19 Urinary Catheter Time of Insertion: 14:50 Sepsis: Is patient septic: Yes Focused sepsis exam performed: Yes Date exam was performed: 05/16/19 Time exam was performed: 18:13 Data : 05/16/19 12:46 05/16/19 12:46 Micro: Microbiology 05/16/19 15:40 Gram Stain - Final Sputum - Endotracheal Tube Aspirate 05/16/19 13:22 Blood Culture - Preliminary Blood SPECIMEN COLLECTED 05/16/19 12:46 Blood Culture - Preliminary Blood SPECIMEN COLLECTED A&P Assessment and plan (1) Acute respiratory failure with hypoxia: Acute respiratory failure secondary to acute flash pulmonary edema and/or pneumonia and or viral infection -Patient's BNP was 14,000, chest x-ray shows pulmonary vascular congestion, does have a history of diastolic heart failure, troponins are elevated -daratumumab is well known to cause acute pulmonary edema -carfilzomab is well known to cause fevers -Patient does have febrile episodes, pro-Doug is 14, chest x-ray does show infiltrates, blood cultures have been drawn, possible pneumonia, does have an immunocompromised state -No known exposures to COVID 19, but febrile, immunocompromised state -Flu negative Plan: -Admit to intensive care unit -Pulmonary critical care Dr. Johnson has been consulted -Bedside bronchoscopy -Continue ventilation, prone positioning, propofol, fentanyl, tidal volume 500, FiO2 100%, PEEP of 0. Minimize FiO2, minimize PEEP -Lovenox, Protonix -Patient will be started on Bumex drip, monitor creatinine, monitor urine output -Serial lactic acids -Broad-spectrum antibiotics vancomycin, Zosyn, azithromycin- -start Tamiflu -Central line placed by Dr. Johnson -Unfortunately prognosis is quite poor, situation is critical -Patient's family wants all interventions currently, unless she has a poor quality of life, low likelihood of meaningful recovery, then they will think about stopping interventions -Given patient's current concerns of acute tubular necrosis, she might require dialysis catheter Status: Acute Code(s): J96.01 - Acute respiratory failure with hypoxia (2) Acute tubular necrosis: -Creatinine is 1.9, minimal urine output Status: Acute Code(s): N17.0 - Acute kidney failure with tubular necrosis (3) Metabolic acidosis: -We will give bicarb pushes -Monitor lactic acid, monitor pH Status: Acute Code(s): E87.2 - Acidosis (4) Sepsis: Blood cultures have been drawn, on broad-spectrum antibiotics, currently normotensive, no pressors required Status: Acute Qualifiers: Acute respiratory failure type: with hypoxia Sepsis acute organ dysfunction status: with acute organ dysfunction Sepsis type: sepsis due to unspecified organism Severe sepsis acute organ dysfunction type: acute respiratory failure Severe sepsis shock status: without septic shock Qualified Code(s): A41.9 - Sepsis, unspecified organism; R65.20 - Severe sepsis without septic shock; J96.01 - Acute respiratory failure with hypoxia Code(s): A41.9 - Sepsis, unspecified organism (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: Status: Acute Code(s): Z79.899 - Other clinical informatics manager (current) drug therapy (6) Multiple myeloma: Status: Acute Qualifiers: Multiple myeloma remission status: not in remission Qualified Code(s): C90.00 - Multiple myeloma not having achieved remission Code(s): C90.00 - Multiple myeloma not having achieved remission (7) Pneumonia: Status: Acute Qualifiers: Laterality: bilateral Lung location: unspecified part of lung Pneumonia type: due to unspecified organism Qualified Code(s): J18.9 - Pneumonia, unspecified organism Code(s): J18.9 - Pneumonia, unspecified organism (8) NSTEMI (non-ST elevated myocardial infarction): -Likely supply demand ischemia -No acute ST-T wave changes -Trend troponins, serial EKGs, telemetry monitoring -Aspirin, statin -Therapeutic Lovenox Status: Acute Code(s): I21.4 - Non-ST elevation (NSTEMI) myocardial infarction Attestations Medical Necessity Statement*: Patient requires hospitalization, inpatient, intensive care unit, acute respiratory failure with hypoxia Coding Level of Care Code Acute Tuna Purse Seiner for [facility] Fwd Diagnoses Acute respiratory failure with hypoxia J96.01 Acute tubular necrosis N17.0 Metabolic acidosis E87.2 Sepsis A41.9; R65.20; J96.01 Acute respiratory failure type: with hypoxia Sepsis acute organ dysfunction status: with acute organ dysfunction Sepsis type: sepsis due to unspecified organism Severe sepsis acute organ dysfunction type: acute respiratory failure Severe sepsis shock status: without septic shock Immunosuppressed due to chemotherapy Z79.899 Multiple myeloma C90.00 Multiple myeloma remission status: not in remission Pneumonia J18.9 Laterality: bilateral Lung location: unspecified part of lung Pneumonia type: due to unspecified organism NSTEMI (non-ST elevated myocardial infarction) I21.4 Sepsis Evaluation Sepsis screening result: Sepsis Risk Current stage of sepsis: sepsis Possible source: pulmonary Focused Exam Vital Signs Temp Pulse Pulse Resp BP BP Pulse Ox 05/16/19 17:45 110 H 24 H 126/76 87 L 05/16/19 17:03 24 H 05/16/19 16:59 86 05/16/19 16:56 87 18 85 L 05/16/19 16:52 89 18 143/78 83 L 05/16/19 16:40 101 F H 145 H 14 169/122 88 L 05/16/19 16:15 138 H 18 177/100 89 L 05/16/19 15:37 143 H 18 05/16/19 15:34 146 H 18 93 05/16/19 14:56 16 05/16/19 13:49 105 H 05/16/19 13:38 100 31 H 173/86 100 05/16/19 13:35 100 31 H 92 05/16/19 12:26 109 H 42 H 170/85 93 05/16/19 12:25 101.2 F H 111 H 42 H 181/89 76 L Respiratory exam: Present patient mechanically ventilated; Absent accessory muscle use Cardiovascular exam: Present RRR, S1 and S2 Capillary refill: < 3 Seconds Peripheral pulse strength: 2+ Slightly Diminished Peripheral pulse location: Pedal Skin exam: mottling Date exam was performed: 05/16/19 Time exam was performed: 18:14 Sepsis Event Note Evaluation Sepsis screening result: Sepsis Risk Current stage of sepsis: sepsis Focused Exam Vital Signs Temp Pulse Pulse Resp BP BP Pulse Ox 05/16/19 17:45 110 H 24 H 126/76 87 L 05/16/19 17:03 24 H 05/16/19 16:59 86 05/16/19 16:56 87 18 85 L 05/16/19 16:52 89 18 143/78 83 L 05/16/19 16:40 101 F H 145 H 14 169/122 88 L 05/16/19 16:15 138 H 18 177/100 89 L 05/16/19 15:37 143 H 18 05/16/19 15:34 146 H 18 93 05/16/19 14:56 16 05/16/19 13:49 105 H 05/16/19 13:38 100 31 H 173/86 100 05/16/19 13:35 100 31 H 92 05/16/19 12:26 109 H 42 H 170/85 93 05/16/19 12:25 101.2 F H 111 H 42 H 181/89 76 L Date exam was performed: 05/16/19 Time exam was performed: 18:13 Problem List (1) Metabolic acidosis: Current Visit: Yes Status: Acute (2) NSTEMI (non-ST elevated myocardial infarction): Current Visit: Yes Status: Acute
[2019-05-16 18:02] LABS: Troponin 5 2HR 785.1 ng/mL (0-10); Troponin 5 2HR Delta 267.1 ABS# (0-10)
--- NOTE | 2019-05-16 18:08 | PM.CONSULT ---
Providers/Reason For Consult Consulting Physican/Specialty*: Pulmonary critical care medicine Reason for Consult*: Acute hypoxic respiratory failure Attending Physician: Otto Gilbert MD Primary Care Provider: Saul Nieto Jr, MD History of Present Illness History of Present Illness Alta Red is a 83 year old female who has a previous history of multiple myeloma. The patient was diagnosed with multiple myeloma in 2017 and started on therapy in October 2017. The patient initially did well however in March of this year she was found to have progression of her disease and she was started on second line medication. Her second line medication includes daratumumab, carfilzomib and dexamethasone. It appears that the patient received her therapy yesterday. Upon completion of the therapy the patient was somewhat dizzy. Overnight she started developing fever cough worsening shortness of breath. The patient presented to the ED with fever, cough and worsening shortness of breath. A chest x-ray revealed bilateral diffuse infiltrate. The patient was eventually intubated. However her oxygen saturation stayed in low 80s to mid 80s. I was asked to come and evaluate the patient. When I saw the patient, she was intubated and sedated. She was on PRVC with a tidal volume of 500 and respiratory to 14 PEEP of 14 and FiO2 of 100%. Her sat was 82 to 83%. I had put her on pressure control. 15/10, 100% FiO2, respiratory rate of 22. The patient has metabolic acidosis on the blood gas. Review of Systems Narrative: Unable to obtain Meds/Allergies Home Medications and Allergies Home Medications Medication Instructions Recorded Confirmed Type acetaminophen 650 mg 650 mg PO Q12H 05/15/19 05/16/19 History tablet,extended release amlodipine 5 mg tablet 5 mg PO DAILY 05/15/19 05/16/19 History aspirin 325 mg tablet,delayed 325 mg PO DAILY 05/15/19 05/16/19 History release hydrochlorothiazide 25 mg tablet 25 mg PO DAILY 05/15/19 05/16/19 History levothyroxine 150 mcg tablet 150 mcg PO DAILY 05/15/19 05/16/19 History meloxicam 15 mg tablet 15 mg PO DAILY 05/15/19 05/16/19 History metformin 500 mg tablet 500 mg PO DAILY 05/15/19 05/16/19 History multivitamin,vk-xbsq-phrmvdwn 1 tab PO DAILY 05/15/19 05/16/19 History potassium chloride 10 mEq 10 meq PO DAILY 05/15/19 05/16/19 History capsule,extended release sennosides 8.6 mg-docusate sodium 1 tab-cap PO DAILY 05/15/19 05/16/19 History 50 mg tablet vitamins A,C,M-qaoy-puttje 14,320 2 cap PO BID cap 05/15/19 05/16/19 History unit-226 mg-200 unit capsule losartan 25 mg PO DAILY 05/16/19 05/16/19 History omeprazole 20 mg PO DAILY 05/16/19 05/16/19 History Allergies Allergy/AdvReac Type Severity Reaction Status Date / Time lenalidomide [From Revlimid] Allergy ALGY-Rash Verified 05/16/19 12:42 Current Medications Current Medications Generic Name Dose Route Start Last Admin Trade Name Freq PRN Reason Stop Dose Admin Bumetanide 25 mg/ N/A 100 mls @ 4 mls/hr 05/16/19 15:30 05/16/19 17:00 IV 1 mg/hr .Q24H SAÚL 4 mls/hr Administration 1 MG/HR PFSH Acute PFSH: Medical History Arthritis Diabetes History of nephrolithiasis Hypertension Peripheral neuropathy Surgical History H/O: hysterectomy History of cholecystectomy Social History Smoking and tobacco status: never smoked Vitals/I&O/Wt Last Vital Signs Temp 101 F H 05/16/19 16:40 Pulse 110 H 05/16/19 17:45 Resp 24 H 05/16/19 17:45 BP 126/76 05/16/19 17:45 Pulse Ox 87 L 05/16/19 17:45 05/16/19 05/16/19 05/16/19 06:59 14:59 22:59 Intake Total 210.818 / 210.818 Balance 210.818 / 210.818 Weight last 48 hrs Weight 180 lb Physical Exam Narrative: EXAM NARRATIVE: General: The patient is intubated and sedated HEENT: Positive light reflex bilaterally Neck: No JVD Respiratory: Auscultation: Diffuse crackles bilaterally Cardiovascular: Regular rate and rhythm, S1-S2 present, no murmur Abdomen: Soft, sluggish bowel sound Neuro: Sedated unable to examine further Urinary Catheter Management^: Johnson: Cath Placed During This Visit: yes Reason for Continuing Indwelling Catheter: Accurate Measurement of Urinary Output in Critically Ill Patients Urinary Catheter Date of Insertion: 05/16/19 Urinary Catheter Time of Insertion: 14:50 Data Micro: Micro: Microbiology 05/16/19 15:40 Gram Stain - Final Sputum - Endotrac heal Tube Aspirate 05/16/19 13:22 Blood Culture - Pr eliminary Blood SPECIMEN COLLEC HERNESTO 05/16/19 12:46 Blood Culture - Pr eliminary Blood SPECIMEN COLLEC HERNESTO Other Data: Other data: I have reviewed the patient laboratory, microbiology, radiology and echocardiographic data. The patient had junctional tachycardia that had converted to supraventricular tach and currently the patient is in sinus rhythm. The patient has acute kidney injury with metabolic acidosis. Her leukocyte count is normal. The endotracheal aspirate is showing gram-positive cocci in pairs. Her lactate level is 4.4 A&P Assessment and plan (1) ARDS (adult respiratory distress syndrome): The patient has bilateral diffuse infiltrate with a PF ratio of 55. There is no evidence of increased left atrial pressure. The etiology of the ARDS is unclear at this time. The most likely etiology is pneumonitis secondary to the chemotherapeutic regimen however an infectious etiology including COVID 19 cannot be ruled out. This could also represent a viral pneumonia like influenza, respiratory syncytial virus or rhino enterovirus. However given the temporal relation this appears more likely to be the chemotherapy related. The patient is currently on pressure control ventilation with optimized PEEP. Her compliance is not too bad unfortunately the patient is having significant VQ mismatch and shunting. I am going to prone the patient and hope for improvement in the hypoxia. Status: Acute Code(s): J80 - Acute respiratory distress syndrome (2) Acute respiratory failure with hypoxia: There is no evidence of MRSA infection at this point. The patient will be covered with broad-spectrum antibiotic. I am going to perform a bronchoscopy and on cell count look for lymphocyte predominance which would suggest a pneumonitis etiology. Status: Acute Code(s): J96.01 - Acute respiratory failure with hypoxia (3) Metabolic acidosis: The patient has lactic acidosis which is likely from multiple etiology including hypoxia. I am getting a repeat lactic acid level. She also has APOLONIA which is also contributing to the acidosis. I have increased the minute ventilation to compensate for the acidosis we are repeating an arterial blood gas. Status: Acute Code(s): E87.2 - Acidosis (4) Acute kidney injury: Kidney injury and possibly acute tubular necrosis. We will continue the supportive therapy based on the overall fluid status. Status: Acute Code(s): N17.9 - Acute kidney failure, unspecified (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: Patient is improved compromised from her malignancy as well as the chemotherapeutic regimen. She will have poor prognosis. This has been communicated with the patient's family. Given her age, comorbidity the patient has a very high mortality risk. Status: Acute Code(s): Z79.899 - Other shelter (current) drug therapy Coding Level of Care Code Acute Compounding Pharmacy Technician for [facility] Fwd Diagnoses ARDS (adult respiratory distress syndrome) J80 Acute respiratory failure with hypoxia J96.01 Metabolic acidosis E87.2 Acute kidney injury N17.9 Immunosuppressed due to chemotherapy Z79.899 Time Spent (min) 65
[2019-05-16] MEDS: fentaNYL 50 mcg/mL INJ 2mL IVP (18:21)
--- NOTE | 2019-05-16 18:30 | PM.ACPR ---
Procedure/Consent Time out: Time Out Performed: Yes Consent: Consent for Procedure: Emergency procedure Procedure Narrative: Name of the Procedure: Right subclavian vein central venous catheter placement Indication: Frequent blood work and possible need for vasopressor Anesthesiia: Lidocaine 1%, 5 ml Description of the procedure: The site was prepared using sterile technique. The junction of the medial two third and the lateral one third of the clavicle was identified. The skin and subcuteneous tissue was anesthetized using lidocaine. The introducer needle was advanced till flash back was noted. Dark, non pulsatile blood noted. Using seldinger technique the CVC was put in.Blood return was noted in all ports. Catheter was secured with suture and covered with transparent dressing. Complications: None X-ray: Pending. Acute Procedures Epistaxis Control: Time out performed: Yes
[2019-05-16 20:08] LABS: ABG PCO2 29.4 mmHg (35-45); ABG PH Result 7.29 (7.35-7.45); Arterial Blood Gas Hematocrit 34.9 % (37-47); Base Excess ABG -11.3 mmol/L (-2.0-2.0); Blood Gas Allen Test Pos; Blood Gas Sample Site Radial, right; Blood Gas Sample Type Arterial; HCO3 ABG 14.1 mmol/L (22-26); Oxygen Device VENT; PO2 ABG 67.3 mmHg (80.0-100.0)
--- NOTE | 2019-05-16 21:05 | PC.NURSE ---
Patient intubated, resting in bed, monitor in place, patient family member updated on care, family denies any needs at this time
[2019-05-16 21:16] LABS: Basophils % 0.2 %; Eosinophils % 0.1 %; Hemoglobin 10.9 g/dL (11.5-15.3); Lymphocytes # 0.5 10^3/uL (0.8-4.8); Lymphocytes % 4.6 %; Mean Corpuscular HGB Conc 30.3 g/dL (30.0-36.0); Mean Corpuscular Hemoglobin 30.4 pg (28.0-34.0); Mean Corpuscular Volume 100.3 fL (81-99); Mean Platelet Volume 11.4 fL (7.4-10.4); Monocytes # 0.3 10^3/uL (0.2-0.9); Monocytes % 2.2 %; Neutrophils # 10.2 10^3/uL (1.8-7.7); Neutrophils % 90.9 %; Nucleated Red Blood Cells # 0.2 /100WBC; Nucleated Red Blood Cells % 1.4 %; Platelet Count 80 10^3/cmm (130-400); Red Blood Count 3.59 10^6/uL (4.1-5.3); Red Cell Distribution Width 15.6 % (12.1-15.1); White Blood Count 11.2 10^3/uL (4.0-10.0)
--- NOTE | 2019-05-16 21:22 | ECG_ITS ---
Measurements Intervals [place] Rate: 98 P: -67 CA: 104 QRS: -26 QRSD: 101 T: 91 QT: 354 QTc: 453 JUNCTIONAL RHYTHM ANTEROSEPTAL MYOCARDIAL INFARCTION [40+ ms Q WAVE IN V1-V4], OF INDETERMINATE AGE No previous ECG available for comparison Electronically Signed On 05-17-2019 8:49:57 CDT by Hayley Dillon [email or web address]
[2019-05-16 21:33] LABS: Slide Review Slide Review Perform
[2019-05-16 21:37] LABS: Absolute Segmented Neutrophil 9.1 10/cmm (1.6-7.1); Band Neutrophils Absolute 0.8 10^3/cmm (0.0-1.2); Lymphocytes 8 %; Segmented Neutrophils 82 %; Total Cells Counted 100 (0-100)
[2019-05-16 21:38] LABS: Alanine Aminotransferase 38 U/L (0-33); Albumin Level 2.1 g/dL (3.5-5.2); Alkaline Phosphatase 74 IU/L (35-105); Anion Gap 23.8 (5-19); Aspartate Amino Transferase 97 U/L (0-32); Blood Urea Nitrogen 44 mg/dL (8-23); Carbon Dioxide 14 mmol/L (22-29); Chloride 108 mmol/L (98-107); Globulin 5.5 g/dL (1.3-4.6); Glucose 370 mg/dL (65-115); Magnesium 2.1 mg/dL (1.7-2.3); Osmolality Calculated 305 mOsm/kg (285-295); Phosphorus 6.8 mg/dL (2.5-4.5); Potassium 4.8 mmol/L (3.5-5.1); Sodium 141 mmol/L (136-145); Total Bilirubin 0.5 mg/dL (0.15-1.2); Total Protein 7.6 g/dL (6.6-8.7)
[2019-05-16 21:39] LABS: Anisocytosis Trace; Platelet Estimate Decreased (Normal); Poikilocytosis 1+; Smudge Cells 1+; Tear Drop Cells 1+
--- NOTE | 2019-05-16 22:09 | PC.NURSE ---
patient tranferred to ICU with monitor, bag mask, 2 nurses, 2 respiratory therapists, closed circuit airway maintained, precautions used,
[2019-05-16 22:33] LABS: Lactic Acid level (Lactate) 5.4 mmol/L (0.5-2.2)
[2019-05-16 22:34] LABS: Troponin 5 6HR Delta 587 ng/L (0-12)
[2019-05-16 22:35] LABS: Troponin 5 6HR 1105 ng/mL (0-10)
[2019-05-16] MEDS: propofol 1,000 MG/100 ML INJ 9.7 MG (23:09)
--- NOTE | 2019-05-16 23:15 | PC.PHAR ---
Patient received 1gm Vancomycin IVPB in the ER. We will continue as 500mg IVPB every 24 hours to produce a predicted trough level of 16.26 (population based pharmacokinetic analysis). A trough level has been ordered from the lab to be drawn before the fourth dose to confirm and adjust if needed.
[2019-05-16] MEDS: insulin regular-human 250 UNIT in sodium chloride 0.9% 250 ML IV (23:57)
[2019-05-17] VITALS (111 sets, daily range): BP systolic 90–160; BP diastolic 44–87; PULSE 72–112; RESP 11–27; TEMP 36.8–37.2; O2SAT 71–97
[2019-05-17 00:54] LABS: Lactic Sepsis W/Reflex 5.4 mmol/L (0.5-2.2)
[2019-05-17] MEDS: pantoprazole 40 mg SDV IVP ×2 (01:45→09:14)
[2019-05-17] MEDS: azithromycin 500 MG in sodium chloride 0.9% 250 ML 250 MG IV ×2 (01:45→23:55)
[2019-05-17 02:18] LABS: Reflex Lactate Order REFLEX LACTIC ORDERD
[2019-05-17 02:30] LABS: Basophils % 0.1 %; Hematocrit 31.3 % (37.0-47.0); Hemoglobin 10.1 g/dL (11.5-15.3); Lymphocytes # 0.4 10^3/uL (0.8-4.8); Lymphocytes % 5.2 %; Mean Corpuscular HGB Conc 32.3 g/dL (30.0-36.0); Mean Platelet Volume 11.2 fL (7.4-10.4); Monocytes # 0.1 10^3/uL (0.2-0.9); Monocytes % 0.9 %; Neutrophils # 6.2 10^3/uL (1.8-7.7); Neutrophils % 92.3 %; Nucleated Red Blood Cells # 0.1 /100WBC; Nucleated Red Blood Cells % 1.2 %; Platelet Count 52 10^3/cmm (130-400); Red Blood Count 3.26 10^6/uL (4.1-5.3); Red Cell Distribution Width 15.4 % (12.1-15.1); White Blood Count 6.7 10^3/uL (4.0-10.0)
[2019-05-17 02:47] LABS: Alanine Aminotransferase 39 U/L (0-33); Albumin Level 2.1 g/dL (3.5-5.2); Alkaline Phosphatase 63 IU/L (35-105); Anion Gap 19.5 (5-19); Aspartate Amino Transferase 99 U/L (0-32); Blood Urea Nitrogen 46 mg/dL (8-23); C Reactive Protein 65.7 mg/L (0.0-4.9); Calcium 8.7 mg/dL (8.5-10.5); Carbon Dioxide 19 mmol/L (22-29); Chloride 107 mmol/L (98-107); Glucose 235 mg/dL (65-115); Osmolality Calculated 300 mOsm/kg (285-295); Phosphorus 5.4 mg/dL (2.5-4.5); Potassium 3.5 mmol/L (3.5-5.1); Sodium 142 mmol/L (136-145); Total Bilirubin 0.4 mg/dL (0.15-1.2); Total Protein 7.1 g/dL (6.6-8.7)
[2019-05-17 03:09] LABS: Lactic Acid level (Lactate) 4.9 mmol/L (0.5-2.2)
[2019-05-17] MEDS: ipratropium-albuterol 3 mL Neb INHALATION ×6 (03:24→21:03)
[2019-05-17 03:42] LABS: Slide Review Slide Review Perform
[2019-05-17] MEDS: piperacillin-tazobactam 3.375 GM in sodium chloride 0.9% (plus) 50 ML IV (04:03)
[2019-05-17 04:19] LABS: ABG PCO2 27.1 mmHg (35-45); Arterial Blood Gas Hematocrit 33.4 % (37-47); Base Excess ABG -6.7 mmol/L (-2.0-2.0); Blood Gas Allen Test Pos; Blood Gas Sample Site Radial, right; Blood Gas Sample Type Arterial; HCO3 ABG 16.9 mmol/L (22-26); Oxygen Device VENT; PO2 ABG 79.7 mmHg (80.0-100.0)
--- NOTE | 2019-05-17 07:00 | XR_ITS ---
WS: [id number] XR chest 1V portable [id number] REASON FOR EXAM: sob FINDINGS: The endotracheal tube is been repositioned in elevated from the area of the sonia. A feeding tube is seen in the upper fundus of the stomach. A central line is seen extending from the right side. There is improved alveolar edema bilaterally There is right pleural effusion. XR/XR chest 1V portable [id number] IMPRESSION: Resolving congestive heart failure. Right pleural effusion Repositioning of the endotracheal tube satisfactory A feeding tube is seen in the stomach upper aspects. A central line is seen extending from the subclavian approach on the right.
[2019-05-17] MEDS: bumetanide 0.25 mg/mL SDV 10 mL 2 MG IV ×2 (07:16→23:56)
[2019-05-17] MEDS: metOLazone 5 MG Tablet PO (07:16)
--- NOTE | 2019-05-17 08:59 | PC.NURSE ---
remains on insulin gtt and attempting to wean leavophed slowly at this time oral care done hob elevated remains on isolation
[2019-05-17] MEDS: atorvastatin 40 mg Tablet 80 MG PO (09:04)
[2019-05-17] MEDS: aspirin 325 mg Tablet PO (09:04)
[2019-05-17] MEDS: enoxaparin 40 mg/0.4 mL Syringe SUBCUT (09:13)
[2019-05-17] MEDS: levothyroxine 100 mcg SDV IVP (09:33)
--- NOTE | 2019-05-17 10:22 | PC.RESP ---
Patient does not have a qualifying hx of lung disease at this time.
--- NOTE | 2019-05-17 11:41 | PC.NURSE ---
slowly weaning off levophed at this time.
--- NOTE | 2019-05-17 12:09 | PM.PN ---
Subjective Subjective: Interval history: This morning patient was examined she remains on the ventilator, her oxygen requirements have decreased FiO2 is now 55%, her PEEP is minimal at 10, she remains afebrile, she is on minimal pressor support, map greater than 65, unfortunately urine output is lackluster, creatinine continues to increase to 2.5, patient remains on sedation, Vitals/I&O/Wt Last Vital Signs Temp 98.9 F 05/17/19 03:00 Pulse 79 05/17/19 11:15 Resp 20 H 05/17/19 10:37 BP 106/58 05/17/19 11:15 Pulse Ox 94 05/17/19 11:15 05/16/19 05/17/19 05/17/19 22:59 06:59 14:59 Intake Total 286.211 / 286.211 498.547 / 784.758 Output Total 200 / 200 100 / 100 Balance 286.211 / 286.211 298.547 / 584.758 -100 / -100 Weight last 48 hrs Weight 81.647 kg Physical Exam Const: OTHER: Intubated, sedated, has pupillary reflexes HENMT: COMMON NORMALS: normocephalic HEAD & SCALP: normocephalic Eye: COMMON NORMALS: PERRL and no papilledema GENERAL EYE: normal appearance of both eyes PUPIL: Yes PERRL DIRECT OPHTHALMOSCOPY: Yes no papilledema Neck/C-Spine: COMMON NORMALS: full ROM, no lymphadenopathy, no JVD and thyroid normal THYROID: thyroid normal Lymph: LYMPHATIC: no lymphadenopathy noted Resp: COMMON NORMALS: normal respiratory effort, no retractions, no use of accessory muscles and clear to auscultation bilaterally AUSCULTATION: clear to auscultation bilaterally Cardio: COMMON NORMALS: no JVD, regular rate, regular rhythm, S1 normal heart sound, S2 normal heart sound, no gallops, no clicks and no murmurs RATE: regular rate RHYTHM: regular rhythm HEART SOUNDS: S1 normal and S2 normal GI: COMMON NORMALS: normal to inspection, nondistended, normoactive bowel sounds, soft to palpation, non-tender and no hepatosplenomegaly PALPATION: Yes soft and Yes no hepatosplenomegaly Extremity: COMMON NORMALS: normal to inspection, full ROM and no pedal edema Neuro: OTHER: Intubated and sedated Urinary Catheter Management^: Johnson: Cath Placed During This Visit: yes Reason for Continuing Indwelling Catheter: Accurate Measurement of Urinary Output in Critically Ill Patients Urinary Catheter Date of Insertion: 05/16/19 Urinary Catheter Time of Insertion: 14:50 Data : 05/17/19 02:25 05/17/19 02:25 Micro: Microbiology 05/16/19 15:40 Gram Stain - Final Sputum - Endotracheal Tube Aspirate 05/16/19 13:22 Blood Culture - Preliminary Blood SPECIMEN COLLECTED 05/16/19 12:46 Blood Culture - Preliminary Blood SPECIMEN COLLECTED A&P Assessment and plan (1) Acute respiratory failure with hypoxia: Acute respiratory failure secondary to acute flash pulmonary edema and or cardiomyopathy and/or pneumonia and or viral infection -Patient's BNP was 14,000, chest x-ray shows pulmonary vascular congestion, does have a history of diastolic heart failure, troponins are elevated -daratumumab is well known to cause acute pulmonary edema -carfilzomab is well known to cause fevers -Patient does have febrile episodes, pro-Doug is 14, chest x-ray does show infiltrates, blood cultures have been drawn, possible pneumonia, does have an immunocompromised state -No known exposures to COVID 19, but febrile, immunocompromised state, covid 19 test sent -Flu negative -This morning patient's ABG has significantly improved, pH 7.4, PCO2 27.1, PO2 79.7, continues to have lackluster urine output, creatinine elevated to 2.6, troponin is elevated with a positive delta, findings concerning for cardiomyopathy, acute flash pulmonary edema Plan: -Admit to intensive care unit -Pulmonary critical care Dr. Johnson has been consulted -Bedside bronchoscopy, Gram stain shows white blood cells, gram-positive cocci in pairs, sputum culture pending -Continue ventilation, prone positioning, propofol, fentanyl, tidal volume 500, FiO2 55%, PEEP of 0. Minimize FiO2, minimize PEEP -Continue Levophed, maintain map greater than 65 -Lovenox, Protonix -Patien Bumex pushes, monitor urine output, monitor creatinine -Solu-Medrol 60 every 6 scheduled -Serial lactic acids, last lactic acid elevated 4.9 4.9 -Broad-spectrum antibiotics vancomycin, Zosyn, azithromycin- -start Tamiflu -Central line placed by Dr. Johnson -Unfortunately prognosis is quite poor, situation is critical -Patient's family wants all interventions currently, unless she has a poor quality of life, low likelihood of meaningful recovery, then they will think about stopping interventions -Given patient's current concerns of acute tubular necrosis, she might require dialysis catheter Status: Acute Code(s): J96.01 - Acute respiratory failure with hypoxia (2) Acute tubular necrosis: -Creatinine is 1.9, minimal urine output Status: Acute Code(s): N17.0 - Acute kidney failure with tubular necrosis (3) Metabolic acidosis: -pH 7.4, PCO2 19 Continue to monitor Status: Acute Code(s): E87.2 - Acidosis (4) Sepsis: Blood cultures have been drawn, on broad-spectrum antibiotics, currently normotensive, on minimal pressor support Status: Acute Qualifiers: Acute respiratory failure type: with hypoxia Sepsis acute organ dysfunction status: with acute organ dysfunction Sepsis type: sepsis due to unspecified organism Severe sepsis acute organ dysfunction type: acute respiratory failure Severe sepsis shock status: without septic shock Qualified Code(s): A41.9 - Sepsis, unspecified organism; R65.20 - Severe sepsis without septic shock; J96.01 - Acute respiratory failure with hypoxia Code(s): A41.9 - Sepsis, unspecified organism (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: Status: Acute Code(s): Z79.899 - Other intermission coordinator (current) drug therapy (6) Multiple myeloma: Status: Acute Qualifiers: Multiple myeloma remission status: not in remission Qualified Code(s): C90.00 - Multiple myeloma not having achieved remission Code(s): C90.00 - Multiple myeloma not having achieved remission (7) Pneumonia: Status: Acute Qualifiers: Laterality: bilateral Lung location: unspecified part of lung Pneumonia type: due to unspecified organism Qualified Code(s): J18.9 - Pneumonia, unspecified organism Code(s): J18.9 - Pneumonia, unspecified organism (8) NSTEMI (non-ST elevated myocardial infarction): -Likely supply demand ischemia -No acute ST-T wave changes -Patient does have Q waves in the anterior chest leads -Baseline troponin 518, [id number], delta 587 -Aspirin, statin -Cardiac echocardiogram pending Status: Acute Code(s): I21.4 - Non-ST elevation (NSTEMI) myocardial infarction (9) Transaminitis: -Likely secondary to shock Status: Acute Code(s): R74.0 - Nonspecific elevation of levels of transaminase and lactic acid dehydrogenase [LDH] Attestations Medical Necessity Statement*: Patient requires continued hospitalization due to acute respiratory failure Coding Level of Care Code Acute Eyelet Machine Operator for [facility] Fwd Diagnoses Acute respiratory failure with hypoxia J96.01 Acute tubular necrosis N17.0 Metabolic acidosis E87.2 Sepsis A41.9; R65.20; J96.01 Acute respiratory failure type: with hypoxia Sepsis acute organ dysfunction status: with acute organ dysfunction Sepsis type: sepsis due to unspecified organism Severe sepsis acute organ dysfunction type: acute respiratory failure Severe sepsis shock status: without septic shock Immunosuppressed due to chemotherapy Z79.899 Multiple myeloma C90.00 Multiple myeloma remission status: not in remission Pneumonia J18.9 Laterality: bilateral Lung location: unspecified part of lung Pneumonia type: due to unspecified organism NSTEMI (non-ST elevated myocardial infarction) I21.4 Transaminitis R74.0
[2019-05-17] MEDS: piperacillin-tazobactam 4.5 GM in sodium chloride 0.9% (plus) 50 ML IV (13:57)
--- NOTE | 2019-05-17 15:06 | USCV_ITS ---
Alta Red Age: 83 Gender: F : 1935 Exam Date: 05/17/2019 17:23 Ordering Phys: Ronda Apple DO Technologist: Luba Stinson [place]am Location[place] [facility] [place]: DVT HISTORY: swelling PROCEDURES: Venous duplex imaging was performed in bilateral lower extremities. The following venous structures were evaluated: common femoral vein, profunda vein, proximal portion of the greater saphenous vein, superficial femoral vein, and the popliteal vein. In addition, the posterior tibial and peroneal trunk were evaluated. Serial compression, augmentation maneuvers, and spectral Doppler flow evaluation were performed. FINDINGS: No DVT seen in any vessel examined CONCLUSIONS No evidence of DVT in the above-mentioned identifiable veins. Dr Kelly Parker MD [facility] (Electronically Signed) Final Date: 17 May 2019 18:53 S
--- NOTE | 2019-05-17 15:23 | USCV_ITS ---
Alta Red Age: 83 Gender: F : 1935 Exam Date: 05/17/2019 17:07 Ordering Phys: Otto Gilbert MD Technologist: Luba Stinson [place]am [place] [facility] [place]ication: EF BP: 102 / 55 HR: 90 Rhythm: Sinus Technical Quality: Adequate MEASUREMENTS (Male / Female) Normal Values 2D ECHO LV Diastolic Diameter PLAX 4.2 cm 4.2 - 5.9 / 3.9 - 5.3 cm LV Systolic Diameter PLAX 2.5 cm LV Chamber Size 3.4 cm IVS Diastolic Thickness 1.5 cm 0.6 - 1.0 / 0.6 - 0.9 cm IVS Systolic Thickness 2.5 cm LVPW Diastolic Thickness 0.9 cm 0.6 - 1.0 / 0.6 - 0.9 cm LVPW Systolic Thickness 1.7 cm RV Chamber Size 4.2 cm LVOT Diameter 2.0 cm LV Ejection Fraction 2D Teich 72.5 % LV Ejection Fraction MOD 2C 39.2 % LV Ejection Fraction 2C AL 43.8 % LA Diameter 3.9 cm LA Width 3.4 cm LA Height 3.8 cm RA Width 4.0 cm RA Height 3.6 cm Aorta at Sinotubular Diameter 3.3 cm M-MODE LV Diastolic Diameter MM 5.3 cm 4.2 - 5.9 / 3.9 - 5.3 cm LV Systolic Diameter MM 3.4 cm LV Ejection Fraction MM Teich 66.4 % IVS Diastolic Thickness MM 1.0 cm 0.6 - 1.0 / 0.6 - 0.9 cm IVS Systolic Thickness MM 1.5 cm LVPW Diastolic Thickness MM 1.3 cm 0.6 - 1.0 / 0.6 - 0.9 cm LVPW Systolic Thickness MM 1.8 cm RV Diastolic Diameter MM 2.7 cm Aortic Annulus Diameter 3.3 cm LA Ao Ratio MM 1.2 MV E Point Septal Separation 0.8 cm DOPPLER AV Peak Velocity 144.0 cm/s LVOT Peak Velocity 123.0 cm/s AV Area Cont Eq vti 2.4 cm squared AV Area Cont Eq pk 2.7 cm squared MV Area PHT 4.4 cm squared Mitral E to A Ratio 1.0 MV E' Velocity 5.0 cm/s Mitral E to MV E' Ratio 21.3 Mitral E to LV E' Lateral Ratio 22.0 Mitral E to LV E' Septal Ratio 20.9 TR Peak Velocity 256.0 cm/s TR Peak Gradient 26.1 mmHg TR Mean Velocity 233.2 cm/s TR Mean Gradient 23.5 mmHg TR Velocity Time Integral 72.9 cm TV Peak E Velocity 60.0 cm/s Right Atrial Pressure 15.0 mmHg Pulmonary Artery Systolic Pressu 41.2 mmHg PV Peak Velocity 160.0 cm/s RV Acceleration Time 0.1 s RV Ejection Time 0.3 s RV AcT/ET 0.4 FINDINGS Left Ventricle Normal left ventricular size and systolic function, EF 66% . Moderate left ventricular hypertrophy. Grade I/IV diastolic dysfunction (abnormal relaxation filling pattern), normal to mildly elevated filling pressures. Right Ventricle The right ventricle is normal in size and function. Right Atrium The right atrium is normal in size. Left Atrium Mildly increased left atrial size. Mitral Valve Thickened mitral valve. Moderate mitral annular calcification. Aortic Valve Thickened aortic valve. Trace aortic valve regurgitation. Tricuspid Valve Trace tricuspid valve regurgitation. Pulmonic Valve No pulmonic regurgitation. Pericardium Normal pericardium without effusion. Aorta Normal ascending aorta dimension. CONCLUSIONS Normal left ventricular size and systolic function, EF 66% . Moderate left ventricular hypertrophy. Grade I/IV diastolic dysfunction (abnormal relaxation filling pattern), normal to mildly elevated filling pressures. Mildly increased left atrial size. Thickened mitral valve. Moderate mitral annular calcification. Thickened aortic valve. Trace aortic valve regurgitation. Trace tricuspid valve regurgitation. Estimated pulmonary artery peak systolic pressure 41 mmHg Compared to the study from 05/03/2019 , there may not be a significant change Dr Kelly Parker MD [facility] (Electronically Signed) Final Date: 17 May 2019 18:52 S
[2019-05-17 16:02] LABS: Glucose Point of Care 105 mg/dL (70-110)
[2019-05-17 16:02] LABS: Glucose Point of Care 315 mg/dL (70-110)
[2019-05-17 16:02] LABS: Glucose Point of Care 117 mg/dL (70-110)
[2019-05-17 16:02] LABS: Glucose Point of Care 298 mg/dL (70-110)
[2019-05-17 16:02] LABS: Glucose Point of Care 315 mg/dL (70-110)
[2019-05-17 16:02] LABS: Glucose Point of Care 164 mg/dL (70-110)
[2019-05-17 16:02] LABS: Glucose Point of Care 117 mg/dL (70-110)
[2019-05-17 16:02] LABS: Glucose Point of Care 195 mg/dL (70-110)
[2019-05-17 16:02] LABS: Glucose Point of Care 142 mg/dL (70-110)
[2019-05-17 16:02] LABS: Glucose Point of Care 96 mg/dL (70-110)
[2019-05-17 16:02] LABS: Glucose Point of Care 235 mg/dL (70-110)
[2019-05-17 16:02] LABS: Glucose Point of Care 127 mg/dL (70-110)
[2019-05-17 16:02] LABS: Glucose Point of Care 121 mg/dL (70-110)
[2019-05-17 16:03] LABS: Glucose Point of Care 110 mg/dL (70-110)
[2019-05-17 16:03] LABS: Glucose Point of Care 125 mg/dL (70-110)
[2019-05-17 16:03] LABS: Glucose Point of Care 122 mg/dL (70-110)
[2019-05-17 16:03] LABS: Glucose Point of Care 145 mg/dL (70-110)
--- NOTE | 2019-05-17 16:08 | PM.PN ---
Subjective Subjective: Interval history: The patient was seen and examined this morning. The patient has made significant recovery overnight. Her oxygen requirement had come down to 50%. Her lung compliance is also improved. Her acid-base status is better. I had performed a bedside ultrasound. The patient had B-lines in the right lower lobe and evidence of air bronchograms all ultrasound of the right lower lobe. There was no significant right or left-sided pleural effusion. A bedside echocardiogram revealed reduced ejection fraction with preserved contractility at the basilar area and apical ballooning consistent with Takotsubo cardiomyopathy. The patient has remained fairly stable hemodynamically. She is requiring minimal amount of pressor. Interestingly, her lactic acid level continues to be stable around 4.9. She was started on insulin drip overnight to control her blood sugar level less than 180. The blood cultures have been negative so far. The sputum culture has not grown any bacteria yet. All her medications have been renally dosed. Chest x-ray obtained this morning revealed significant improvement in bilateral infiltrates. There is right lower lobe infiltrate. The rapid improvement in ARDS is likely due to improving pneumonitis. I do not believe the patient had a significant component of pulmonary edema as the patient is overall fluid positive and there is improvement in the chest x-ray. The improvement in the chest x-ray could also be secondary to positive pressure ventilation with redistribution of fluid from the alveolar space into the pulmonary capillaries. Medications: Reviewed: Yes Vitals/I&O/Wt Last Vital Signs Temp 98.9 F 05/17/19 03:00 Pulse 88 05/17/19 16:00 Resp 20 H 05/17/19 15:16 BP 112/56 05/17/19 16:00 Pulse Ox 94 05/17/19 16:00 05/17/19 05/17/19 05/17/19 06:59 14:59 22:59 Intake Total 498.547 / 784.758 Output Total 200 / 200 300 / 300 Balance 298.547 / 584.758 -300 / -300 Weight last 48 hrs Weight 180 lb Physical Exam Narrative: EXAM NARRATIVE: General: The patient is intubated and sedated HEENT: Positive light reflex bilaterally Neck: No JVD Respiratory: Auscultation: Crackles at the right lower lung base Cardiovascular: Regular rate and rhythm, S1-S2 present, no murmur Abdomen: Soft, sluggish bowel sound Neuro: Sedated unable to examine further Urinary Catheter Management^: Johnson: Cath Placed During This Visit: yes Reason for Continuing Indwelling Catheter: Accurate Measurement of Urinary Output in Critically Ill Patients Urinary Catheter Date of Insertion: 05/16/19 Urinary Catheter Time of Insertion: 14:50 Data : 05/17/19 02:25 05/17/19 02:25 Micro: Microbiology 05/16/19 13:22 Blood Culture - Preliminary Blood NEGATIVE TO DATE 05/16/19 12:46 Blood Culture - Preliminary Blood NEGATIVE TO DATE 05/16/19 15:40 Gram Stain - Final Sputum - Endotracheal Tube Aspirate Other data: I have reviewed the patient's laboratory, microbiology, radiology data in detail. A&P Assessment and plan (1) ARDS (adult respiratory distress syndrome): The patient seems to have rapidly resolving ARDS. The severity of ARDS is usually associated with better outcome. The etiology of the ARDS is likely pneumonitis secondary to the chemotherapeutic regimen. Such rapid improvement both radiologically and clinically would be inconsistent with ARDS secondary to a viral pneumonia. Pulmonary edema was also a concern however there was no significant pleural effusion which is unusual. This morning also the patient did not have bilateral B-lines on chest ultrasound. The patient is covered with broad-spectrum antibiotics with Zosyn and we have also started her on azithromycin. I am going to discontinue the Levaquin. Given her low GFR, the patient will be covered with Levaquin for 48 hours anyway. There is significant concern for cardiac etiology for the patient's ARDS given the increased troponin. The bedside ultrasound this morning revealed left ventricular architecture consistent with Takotsubo cardiomyopathy. I was planning on performing the patient however since she had improved I did not perform the patient. She is not paralyzed and is completely compliant with the vent. The patient is currently on pressure control 22/10, FiO2 of 55% and respiratory rate of 20. Status: Acute Code(s): J80 - Acute respiratory distress syndrome (2) Acute respiratory failure with hypoxia: The patient is currently adequately covered with antibiotic. Due to rapid improvement in the radiology, I am going to reduce the Solu-Medrol to 40 mg every 8 hours which I believe is more than adequate. The patient is on renally dosed Tamiflu. Oseltamivir is highly protein bound and a high-dose Tamiflu in the presence of renal disease might lead to significant recommendation of the drug and side effects. Status: Acute Code(s): J96.01 - Acute respiratory failure with hypoxia (3) Metabolic acidosis: The metabolic acidosis is secondary to APOLONIA as well as lactic acidosis. The patient had been hemodynamically stable and not hypoxic however she still has mild degree of lactic acidosis. The etiology for this is unclear to me at this time. It is possible that there is disturbance at the microvascular level leading to this lactic acidosis. However this could also be type B lactic acidosis secondary to metformin in the setting of acute kidney injury. Increased lactate level can also be seen in sepsis with and has glycolysis in the presence of significant sympathetic surge. Development of takotsubo cardiomyopathy is also seen with profound sympathetic surge. This is present in this patient. The patient was initially given bicarb supplementation however currently her pH is 7.4 and does not need any bicarb supplementation. The patient is making some urine with diuretic regimen. I expect this to get better with time. Status: Acute Code(s): E87.2 - Acidosis (4) Acute kidney injury: We will continue with the supportive therapy with as needed diuresis. The patient does not have an indication for dialysis right now however if there is worsening metabolic acidosis, hyperkalemia or fluid overload she might require dialysis. Status: Acute Code(s): N17.9 - Acute kidney failure, unspecified (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: The patient has multiorgan dysfunction, ARDS, vasodilatory shock. Her estimated risk of mortality is very high however the patient has made some recovery. We will continue the supportive therapy. If the patient does continue to get better she might be candidate for extubation in the next 48 hours or so. Status: Acute Code(s): Z79.899 - Other penitentiary (current) drug therapy Attestations Medical Necessity Statement*: Will defer to the primary team Coding Level of Care Code Acute Medical Technician Assistant for [facility] Diagnoses ARDS (adult respiratory distress syndrome) J80 Acute respiratory failure with hypoxia J96.01 Metabolic acidosis E87.2 Acute kidney injury N17.9 Immunosuppressed due to chemotherapy Z79.899 Time Spent (min) 43
[2019-05-17 16:29] LABS: Lactic Acid level (Lactate) 4.4 mmol/L (0.5-2.2)
--- NOTE | 2019-05-17 17:50 | PC.NURSE ---
Report faxed to [employer]. Further veba report given to Merlene. Pt transferred to [facility]- via bed. All belongings including string with bead necklace, [place] kennedy capsules and upper dentures with poligrip supply.
[2019-05-17 21:01] LABS: Anion Gap 20.7 (5-19); Blood Urea Nitrogen 65 mg/dL (8-23); Calcium 8.6 mg/dL (8.5-10.5); Carbon Dioxide 19 mmol/L (22-29); Chloride 107 mmol/L (98-107); Glucose 187 mg/dL (65-115); Osmolality Calculated 300 mOsm/kg (285-295); Potassium 3.7 mmol/L (3.5-5.1); Sodium 143 mmol/L (136-145)
--- NOTE | 2019-05-17 22:01 | ECG_ITS ---
Measurements Intervals [place] Rate: 87 P: 111 TN: 172 QRS: -9 QRSD: 87 T: 223 QT: 426 QTc: 513 SINUS RHYTHM LOW QRS VOLTAGE IN EXTREMITY LEADS [QRS DEFLECTION < 0.5 mV IN LIMB LEADS] POSSIBLE ANTERIOR MYOCARDIAL INFARCTION [30 ms Q WAVE IN V3/V4, OR R < 0.2 mV IN V4], Electronically Signed On 05-18-2019 8:10:14 CDT by Hayley Dillon [email or web address]
[2019-05-18] VITALS (65 sets, daily range): BP systolic 109–144; BP diastolic 48–78; PULSE 68–123; RESP 10–17; TEMP 36.2–36.3; O2SAT 90–97
[2019-05-18] MEDS: ipratropium-albuterol 3 mL Neb INHALATION ×7 (00:54→23:47)
[2019-05-18] MEDS: piperacillin-tazobactam 4.5 GM in sodium chloride 0.9% (plus) 50 ML IV ×2 (01:51→14:30)
[2019-05-18 05:21] LABS: Basophils % 0.1 %; Hematocrit 29.8 % (37.0-47.0); Hemoglobin 9.6 g/dL (11.5-15.3); Lymphocytes # 0.6 10^3/uL (0.8-4.8); Lymphocytes % 5.9 %; Mean Corpuscular HGB Conc 32.2 g/dL (30.0-36.0); Mean Corpuscular Hemoglobin 30.4 pg (28.0-34.0); Mean Corpuscular Volume 94.3 fL (81-99); Mean Platelet Volume 12.5 fL (7.4-10.4); Monocytes # 0.4 10^3/uL (0.2-0.9); Monocytes % 3.7 %; Neutrophils # 9.3 10^3/uL (1.8-7.7); Nucleated Red Blood Cells # 0.1 /100WBC; Nucleated Red Blood Cells % 0.6 %; Platelet Count 31 10^3/cmm (130-400); Red Blood Count 3.16 10^6/uL (4.1-5.3); Red Cell Distribution Width 15.7 % (12.1-15.1); White Blood Count 10.3 10^3/uL (4.0-10.0)
[2019-05-18 05:44] LABS: Alanine Aminotransferase 39 U/L (0-33); Albumin Level 2.3 g/dL (3.5-5.2); Alkaline Phosphatase 50 IU/L (35-105); Anion Gap 15.5 (5-19); Aspartate Amino Transferase 92 U/L (0-32); Blood Urea Nitrogen 60 mg/dL (8-23); C Reactive Protein 51.8 mg/L (0.0-4.9); Calcium 8.3 mg/dL (8.5-10.5); Carbon Dioxide 23 mmol/L (22-29); Chloride 107 mmol/L (98-107); Glucose 157 mg/dL (65-115); Magnesium 2.2 mg/dL (1.7-2.3); Osmolality Calculated 296 mOsm/kg (285-295); Phosphorus 5.9 mg/dL (2.5-4.5); Potassium 3.5 mmol/L (3.5-5.1); Sodium 142 mmol/L (136-145); Total Bilirubin 0.5 mg/dL (0.15-1.2); Total Protein 6.3 g/dL (6.6-8.7)
[2019-05-18 05:50] LABS: Procalcitonin 20.54 ng/mL (0-0.5)
[2019-05-18 05:50] LABS: ABG PCO2 37.4 mmHg (35-45); ABG PH Result 7.35 (7.35-7.45); Arterial Blood Gas Hematocrit 32.2 % (37-47); Base Excess ABG -4.4 mmol/L (-2.0-2.0); Blood Gas Allen Test Pos; Blood Gas Sample Site Radial, right; Blood Gas Sample Type Arterial; HCO3 ABG 20.7 mmol/L (22-26); Oxygen Device VENT; PO2 ABG 91.9 mmHg (80.0-100.0)
--- NOTE | 2019-05-18 07:00 | XRR_ITS ---
PROCEDURE INFORMATION: Exam: XR Chest, 1 View Exam date and time: 05/18/2019 4:37 AM Age: 83 years old Clinical indication: Shortness of breath; Patient HX: Et and og; Additional info: SOB TECHNIQUE: Imaging protocol: XR of the chest Views: 1 view. COMPARISON: CR XR chest 1V portable [id number] 05/17/2019 5:15 AM FINDINGS: Tubes, catheters and devices: An orogastric tube is present with its tip recurving to the gastroesophageal junction. An endotracheal tube is placed with its tip approximately 6.2 cm from the sonia. EKG leads overlie the chest. Lungs: There are increased densities seen within the lower hemithoraces bilaterally, findings that may represent a bilateral basilar pneumonitis or atelectasis. Pleural space: Unremarkable. No pleural effusion. No pneumothorax. Heart/Mediastinum: Unremarkable. No cardiomegaly. Vasculature: The central venous line is placed via the right subclavian vein with its tip at the level of the superior vena cava. Bones/joints: Unremarkable. XR/XR chest 1V portable [id number] IMPRESSION: 1. Endotracheal tube tip approximately 6.2 cm from the sonia. 2. Orogastric tube tip recurves to the gastroesophageal junction. 3. There are persistent bilateral basilar opacities, findings that may represent continuing bilateral basilar pneumonitis and/or atelectasis.
[2019-05-18] MEDS: pantoprazole 40 mg SDV IVP (08:20)
[2019-05-18] MEDS: atorvastatin 40 mg Tablet 80 MG PO (08:20)
[2019-05-18] MEDS: enoxaparin 30 mg/0.3 mL Syringe SUBCUT (08:21)
[2019-05-18] MEDS: aspirin 325 mg Tablet 81 MG PO (08:21)
[2019-05-18] MEDS: levothyroxine 100 mcg SDV IVP (08:23)
[2019-05-18 08:44] LABS: Glucose Point of Care 137 mg/dL (70-110)
[2019-05-18] MEDS: bumetanide 0.25 mg/mL SDV 10 mL 2 MG IV (09:09)
[2019-05-18 12:10] LABS: Glucose Point of Care 167 mg/dL (70-110)
--- NOTE | 2019-05-18 15:23 | P.PN_ITS ---
Subjective Subjective: Interval history: This morning patient is on minimal sedation, hands, squeezes my fingers, opens her eyes, wiggles her toes, her urine output has picked up, she remains normotensive, afebrile, doing well on the ventilator, minimal FiO2 of 30%, has good tidal volumes of 500-600, she has tolerated her weaning trial well, patient's Covid 19 testing has not come back Medications: Reviewed: Yes Vitals/I&O/Wt Last Vital Signs Temp 98.6 F 05/17/19 19:30 Pulse 78 05/18/19 15:21 Resp 17 05/18/19 15:18 BP 126/54 05/18/19 13:00 Pulse Ox 93 05/18/19 15:18 05/18/19 05/18/19 05/18/19 06:59 14:59 22:59 Intake Total 100 / 450 50 / 50 Output Total 400 / 1150 400 / 400 Balance -300 / -700 -350 / -350 Physical Exam Const: OTHER: Intubated, follows command such as squeezing my fingers, wiggling her toes, opening her eyes HENMT: COMMON NORMALS: normocephalic HEAD & SCALP: normocephalic Eye: COMMON NORMALS: PERRL and no papilledema GENERAL EYE: normal appearance of both eyes PUPIL: Yes PERRL DIRECT OPHTHALMOSCOPY: Yes no papilledema Neck/C-Spine: COMMON NORMALS: full ROM, no lymphadenopathy, no JVD and thyroid normal THYROID: thyroid normal Lymph: LYMPHATIC: no lymphadenopathy noted Resp: COMMON NORMALS: normal respiratory effort, no retractions, no use of accessory muscles and clear to auscultation bilaterally AUSCULTATION: clear to auscultation bilaterally Cardio: COMMON NORMALS: no JVD, regular rate, regular rhythm, S1 normal heart sound, S2 normal heart sound, no gallops, no clicks and no murmurs RATE: regular rate RHYTHM: regular rhythm HEART SOUNDS: S1 normal and S2 normal GI: COMMON NORMALS: normal to inspection, nondistended, normoactive bowel sounds, soft to palpation, non-tender and no hepatosplenomegaly PALPATION: Yes soft and Yes no hepatosplenomegaly Extremity: COMMON NORMALS: normal to inspection, full ROM and no pedal edema Urinary Catheter Management^: Johnson: Cath Placed During This Visit: yes Reason for Continuing Indwelling Catheter: Accurate Measurement of Urinary Output in Critically Ill Patients Urinary Catheter Date of Insertion: 05/16/19 Urinary Catheter Time of Insertion: 14:50 Data : 05/18/19 04:29 05/18/19 04:29 Micro: Microbiology 05/16/19 15:40 Gram Stain - Final Sputum - Endotracheal Tube Aspirate Sputum Culture - Preliminary Strep pyogenes (grp a) 05/17/19 13:30 Bacterial Antigens - Final Urine,Clean Catch 05/16/19 13:22 Blood Culture - Preliminary Blood NEGATIVE TO DATE 05/16/19 12:46 Blood Culture - Preliminary Blood NEGATIVE TO DATE A&P Assessment and plan (1) Acute respiratory failure with hypoxia: Acute respiratory failure secondary to acute respiratory distress syndrome and/or acute flash pulmonary edema and or cardiomyopathy and/or pneumonia and or viral infection -Patient's BNP was 14,000, chest x-ray shows pulmonary vascular congestion, does have a history of diastolic heart failure, troponins are elevated -daratumumab is well known to cause acute pulmonary edema -carfilzomab is well known to cause fevers -Patient does have febrile episodes, pro-Doug is 14, chest x-ray does show infiltrates, blood cultures have been drawn, possible pneumonia, does have an immunocompromised state -No known exposures to COVID 19, but febrile, immunocompromised state, covid 19 test sent -Flu negative -This morning patient's ABG has significantly improved, pH of 7.35, PCO2 37.4, bicarb of 20.7, continues to have urine output has improved, creatinine stabilized to 2.6, troponin is elevated with a positive delta, findings concerning for a component of cardiomyopathy, acute flash pulmonary edema Plan: -Admit to intensive care unit -Pulmonary critical care Dr. Johnson has been consulted -Bedside bronchoscopy, Gram stain shows white blood cells, sputum culture shows strep biology knees -Continue ventilation, prone positioning, propofol, fentanyl, tidal volume 500, FiO2 55%, PEEP of 0. Minimize FiO2, minimize PEEP -Continue Levophed, maintain map greater than 80 while diuresing -Lovenox, Protonix -Patient on Bumex pushes, monitor urine output, monitor creatinine -Solu-Medrol 60 every 6 scheduled -Serial lactic acids, last lactic acid elevated 4.9 4.9 -Broad-spectrum antibiotics Zosyn and azithromycin -Renally dose Tamiflu -Central line placed by Dr. Johnson -Patient has clinically improved, has a high likelihood of successful extubation in the next 24 hours, plan on extubation onto high flow -Patient's family wants all interventions currently, unless she has a poor quality of life, low likelihood of meaningful recovery, then they will think about stopping interventions -Given patient's current concerns of acute tubular necrosis, she might require dialysis catheter Status: Acute Code(s): J96.01 - Acute respiratory failure with hypoxia (2) Acute tubular necrosis: -Creatinine is 2.6, minimal urine output Status: Acute Code(s): N17.0 - Acute kidney failure with tubular necrosis (3) Metabolic acidosis: -pH 7.4 Continue to monitor Status: Acute Code(s): E87.2 - Acidosis (4) Sepsis: Blood cultures have been drawn, on broad-spectrum antibiotics, currently normotensive, on minimal pressor support Status: Acute Qualifiers: Acute respiratory failure type: with hypoxia Sepsis acute organ dysfunction status: with acute organ dysfunction Sepsis type: sepsis due to unspecified organism Severe sepsis acute organ dysfunction type: acute respiratory failure Severe sepsis shock status: without septic shock Qualified Code(s): A41.9 - Sepsis, unspecified organism; R65.20 - Severe sepsis without septic shock; J96.01 - Acute respiratory failure with hypoxia Code(s): A41.9 - Sepsis, unspecified organism (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: Status: Acute Code(s): Z79.899 - Other fdc (current) drug therapy (6) Multiple myeloma: Status: Acute Qualifiers: Multiple myeloma remission status: not in remission Qualified Code(s): C90.00 - Multiple myeloma not having achieved remission Code(s): C90.00 - Multiple myeloma not having achieved remission (7) Pneumonia: Status: Acute Qualifiers: Laterality: bilateral Lung location: unspecified part of lung Pneumonia type: due to unspecified organism Qualified Code(s): J18.9 - Pneumonia, unspecified organism Code(s): J18.9 - Pneumonia, unspecified organism (8) NSTEMI (non-ST elevated myocardial infarction): -Likely supply demand ischemia -No acute ST-T wave changes -Patient does have Q waves in the anterior chest leads -Baseline troponin 518, [id number], delta 587 -Aspirin, statin -Cardiac echocardiogram diastolic dysfunction, EF 65%, no regional wall motion abnormalities -Cardiology has been consulted Status: Acute Code(s): I21.4 - Non-ST elevation (NSTEMI) myocardial infarction (9) Transaminitis: -Likely secondary to shock, improving Status: Acute Code(s): R74.0 - Nonspecific elevation of levels of transaminase and lactic acid dehydrogenase [LDH] Attestations Medical Necessity Statement*: She requires continued hospitalization for acute respiratory failure, plan on extubation in next 24 to 48 hours Coding Level of Care Code Acute [employer]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[facility] 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 Diagnoses Acute respiratory failure with hypoxia J96.01 Acute tubular necrosis N17.0 Metabolic acidosis E87.2 Sepsis A41.9; R65.20; J96.01 Acute respiratory failure type: with hypoxia Sepsis acute organ dysfunction status: with acute organ dysfunction Sepsis type: sepsis due to unspecified organism Severe sepsis acute organ dysfunction type: acute respiratory failure Severe sepsis shock status: without septic shock Immunosuppressed due to chemotherapy Z79.899 Multiple myeloma C90.00 Multiple myeloma remission status: not in remission Pneumonia J18.9 Laterality: bilateral Lung location: unspecified part of lung Pneumonia type: due to unspecified organism NSTEMI (non-ST elevated myocardial infarction) I21.4 Transaminitis R74.0
[2019-05-18] MEDS: propofol 1,000 MG/100 ML INJ 9.8 MG IV (16:10)
[2019-05-18] MEDS: AA-Dex 5%-20% w/Lytes 1,000 ML 42 ML IV (19:31)
[2019-05-18 20:05] LABS: Glucose Point of Care 166 mg/dL (70-110)
[2019-05-18] MEDS: azithromycin 500 MG in sodium chloride 0.9% 250 ML 250 MG IV (21:47)
[2019-05-18 23:41] LABS: Glucose Point of Care 191 mg/dL (70-110)
[2019-05-18 23:41] LABS: Glucose Point of Care 152 mg/dL (70-110)
[2019-05-18 23:41] LABS: Glucose Point of Care 200 mg/dL (70-110)
[2019-05-18 23:41] LABS: Glucose Point of Care 268 mg/dL (70-110)
[2019-05-18 23:56] LABS: Glucose Point of Care 228 mg/dL (70-110)
[2019-05-19] VITALS (40 sets, daily range): BP systolic 140–167; BP diastolic 63–80; PULSE 63–106; RESP 10–25; TEMP 36.2–37; O2SAT 87–98
[2019-05-19] MEDS: piperacillin-tazobactam 4.5 GM in sodium chloride 0.9% (plus) 50 ML IV (01:50)
[2019-05-19] MEDS: ipratropium-albuterol 3 mL Neb INHALATION ×5 (03:36→20:19)
[2019-05-19 03:40] LABS: Glucose Point of Care 225 mg/dL (70-110)
[2019-05-19 05:08] LABS: Hematocrit 32.5 % (37.0-47.0); Hemoglobin 10.8 g/dL (11.5-15.3); Lymphocytes # 0.6 10^3/uL (0.8-4.8); Lymphocytes % 4.2 %; Mean Corpuscular HGB Conc 33.2 g/dL (30.0-36.0); Mean Corpuscular Hemoglobin 31.8 pg (28.0-34.0); Mean Corpuscular Volume 95.6 fL (81-99); Monocytes # 0.4 10^3/uL (0.2-0.9); Monocytes % 3.3 %; Neutrophils # 12.4 10^3/uL (1.8-7.7); Neutrophils % 91.8 %; Nucleated Red Blood Cells # 0.1 /100WBC; Nucleated Red Blood Cells % 0.6 %; Platelet Count 31 10^3/cmm (130-400); Red Cell Distribution Width 15.8 % (12.1-15.1); White Blood Count 13.5 10^3/uL (4.0-10.0)
[2019-05-19 05:28] LABS: Mean Platelet Volume 14.3 fL (7.4-10.4)
[2019-05-19 05:29] LABS: ABG PCO2 38.3 mmHg (35-45); ABG PH Result 7.37 (7.35-7.45); Arterial Blood Gas Hematocrit 33.6 % (37-47); Base Excess ABG -3.1 mmol/L (-2.0-2.0); Blood Gas Allen Test Pos; Blood Gas Sample Site Radial, right; Blood Gas Sample Type Arterial; HCO3 ABG 21.9 mmol/L (22-26); Oxygen Device VENT
[2019-05-19 05:32] LABS: Alkaline Phosphatase 50 IU/L (35-105); Anion Gap 14.7 (5-19); C Reactive Protein 30.3 mg/L (0.0-4.9); Calcium 8.2 mg/dL (8.5-10.5); Carbon Dioxide 24 mmol/L (22-29); Chloride 106 mmol/L (98-107); Globulin 4.4 g/dL (1.3-4.6); Glucose 254 mg/dL (65-115); Magnesium 2.4 mg/dL (1.7-2.3); Osmolality Calculated 301 mOsm/kg (285-295); Potassium 3.7 mmol/L (3.5-5.1); Sodium 141 mmol/L (136-145); Total Bilirubin 0.8 mg/dL (0.15-1.2); Total Protein 6.4 g/dL (6.6-8.7)
[2019-05-19 05:44] LABS: Procalcitonin 11.79 ng/mL (0-0.5)
[2019-05-19 05:47] LABS: Blood Urea Nitrogen 84 mg/dL (8-23)
[2019-05-19 05:55] LABS: Alanine Aminotransferase < 5 U/L (0-33); Aspartate Amino Transferase 118 U/L (0-32)
--- NOTE | 2019-05-19 07:00 | XR_ITS ---
WS: [id number] XR chest 1V portable [id number] REASON FOR EXAM: sob FINDINGS: Low-grade pulmonary edema seen bilaterally. The endotracheal tube is good position as well as a feeding tube. The heart is not grossly enlarged there is arteriosclerotic changes. The overall appearance of the lungs appears to be similar to the exam of May 18, 2019. XR/XR chest 1V portable [id number] IMPRESSION: Low-grade pulmonary edema Endotracheal tube and feeding tube in good position Accessory catheter is seen subclavian approach on the right.
[2019-05-19 08:27] LABS: Glucose Point of Care 248 mg/dL (70-110)
[2019-05-19] MEDS: atorvastatin 40 mg Tablet 80 MG PO (10:00)
[2019-05-19] MEDS: pantoprazole 40 mg SDV IVP (10:20)
[2019-05-19] MEDS: levothyroxine 100 mcg SDV IVP (10:21)
[2019-05-19] MEDS: aspirin 81 mg Chew Tablet PO (10:21)
--- NOTE | 2019-05-19 10:25 | PC.SOCIAL ---
IMM Page 2 of IMM given to patient's daughter Carleen at bedside with [employer] number listed. Initialed, dated, and timed and placed in chart. Copy provided to Carleen.
[2019-05-19] MEDS: bumetanide 0.25 mg/mL SDV 10 mL 1 MG IV (10:43)
--- NOTE | 2019-05-19 12:00 | CTR_ITS ---
PROCEDURE INFORMATION: Exam: CT Chest Without Contrast Exam date and time: 05/19/2019 11:44 AM Age: 83 years old Clinical indication: Shortness of breath; Additional info: SOB; Edited dos TECHNIQUE: Imaging protocol: Computed tomography of the chest without contrast. Total DLP: 829.74 mGy-cm Radiation optimization: All CT scans at this facility use at least one of these dose optimization techniques: automated exposure control; mA and/or kV adjustment per patient size (includes targeted exams where dose is matched to clinical indication); or iterative reconstruction. COMPARISON: CR XR chest 1V portable [id number] 05/19/2019 5:21 AM FINDINGS: Tubes, catheters and devices: There is a central venous catheter in place with the tip terminating in the superior vena cava. Lungs: Bilateral patchy pulmonary ground-glass opacities. Pleural space: There are bilateral pleural effusions with underlying compressive atelectasis or infiltrate. Heart: Cardiomegaly. There is trace pericardial fluid. Multivessel atherosclerotic disease which involves the coronary arteries. Aorta: Unremarkable. No aortic aneurysm. Lymph nodes: Unremarkable. No enlarged lymph nodes. Liver: Lobulated liver consistent with cirrhosis. Kidneys and ureters: Left renal calculi partially visualized. Intraperitoneal space: There is a small amount of ascites in the upper abdomen. Bones/joints: Unremarkable. No acute fracture. Soft tissues: There is recanalization of the umbilical vein and varicosities at the [place] hepatic[place], consistent with portal venous hypertension. There is edema in the soft tissues surrounding the upper abdomen. CT/CT chest [facility] [id number] IMPRESSION: 1. There are bilateral pleural effusions with underlying compressive atelectasis or infiltrate. In combination with cardiomegaly, findings are consistent with congestive heart failure. 2. Bilateral patchy pulmonary ground-glass opacities are nonspecific and can be seen with pulmonary edema or pneumonia. 3. Cirrhotic liver with portal venous hypertension. 4. Multivessel atherosclerotic disease which involves the coronary arteries. Radiation Dose CTDIVOL = (mGy): DLP = 829.74 (mGy-cm)
--- NOTE | 2019-05-19 12:03 | PC.RESP ---
extubated pt extubated and placed on heated high flow nc
--- NOTE | 2019-05-19 12:32 | P.PN_ITS ---
Subjective Subjective: Interval history: Over the last 24 hours, patient has tolerated weaning trial well, minimal tachycardia, good tidal volumes, minimal PEEP of 5, minimal FiO2 Patient's COVID19 testing was negative Patient was successfully extubated today, onto nasal cannula, plan on high flow Vitals/I&O/Wt Last Vital Signs Temp 98.6 F 05/19/19 08:00 Pulse 75 05/19/19 11:24 Resp 10 L 05/19/19 11:27 BP 155/69 05/19/19 08:00 Pulse Ox 97 05/19/19 11:24 05/18/19 05/19/19 05/19/19 22:59 06:59 14:59 Intake Total 360 / 410 248.163 / 658.163 Output Total 500 / 900 850 / 1750 Balance -140 / -490 -601.837 / -1091.837 Physical Exam Const: COMMON NORMALS: no apparent distress GENERAL APPEARANCE: cooperative and comfortable ORIENTATION/CONSCIOUSNESS: Yes awake and Yes oriented to person HENMT: COMMON NORMALS: normocephalic HEAD & SCALP: normocephalic Neck/C-Spine: COMMON NORMALS: no JVD Resp: COMMON NORMALS: normal respiratory effort, no retractions, no use of accessory muscles and clear to auscultation bilaterally AUSCULTATION: clear to auscultation bilaterally Cardio: COMMON NORMALS: no JVD, regular rate, regular rhythm, S1 normal heart sound and S2 normal heart sound RATE: regular rate RHYTHM: regular rhythm HEART SOUNDS: S1 normal and S2 normal GI: COMMON NORMALS: normal to inspection, nondistended, normoactive bowel sounds, soft to palpation, non-tender, no hepatosplenomegaly, no masses and no bruits PALPATION: Yes soft and Yes no hepatosplenomegaly Extremity: COMMON NORMALS: normal capillary refill, no clubbing, cyanosis or edema, no calf tenderness and no pedal edema Neuro: SENSORIUM/ORIENTATION: Yes oriented to person Urinary Catheter Management^: Johnson: Cath Placed During This Visit: yes Reason for Continuing Indwelling Catheter: Acute Urinary Retention or Obstruction Urinary Catheter Date of Insertion: 05/16/19 Urinary Catheter Time of Insertion: 14:50 Data : 05/19/19 03:34 05/19/19 03:34 Micro: Microbiology 05/16/19 15:40 Gram Stain - Final Sputum - Endotracheal Tube Aspirate Sputum Culture - Final Strep pyogenes (grp a) A&P Assessment and plan (1) Acute respiratory failure with hypoxia: Acute respiratory failure secondary to acute respiratory distress syndrome and/or acute flash pulmonary edema and or cardiomyopathy and/or pneumonia and or viral infection -Successfully extubated today, plan on high flow Plan: -Admit to intensive care unit, likely de-escalate out of the ICU tomorrow -Lovenox, Protonix -Patient on Bumex pushes, monitor urine output, monitor creatinine -Solu-Medrol 40 every 8 hours -Broad-spectrum antibiotics Zosyn and azithromycin, will de-escalate tomorrow to Augmentin and Levaquin -Sputum cultures group A strep -Renally dose Tamiflu -Central line placed by Dr. Johnson, likely to be removed tomorrow Status: Acute Code(s): J96.01 - Acute respiratory failure with hypoxia (2) Acute tubular necrosis: -Creatinine is 2.3, minimal urine output -BUN is 84, encourage oral intake Status: Acute Code(s): N17.0 - Acute kidney failure with tubular necrosis (3) Metabolic acidosis: Resolved Status: Acute Code(s): E87.2 - Acidosis (4) Sepsis: Blood cultures unremarkable Status: Acute Qualifiers: Acute respiratory failure type: with hypoxia Sepsis acute organ dysfunction status: with acute organ dysfunction Sepsis type: sepsis due to unspecified organism Severe sepsis acute organ dysfunction type: acute respiratory failure Severe sepsis shock status: without septic shock Qualified Code(s): A41.9 - Sepsis, unspecified organism; R65.20 - Severe sepsis without septic shock; J96.01 - Acute respiratory failure with hypoxia Code(s): A41.9 - Sepsis, unspecified organism (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: Status: Acute Code(s): Z79.899 - Other custodial (current) drug therapy (6) Multiple myeloma: Status: Acute Qualifiers: Multiple myeloma remission status: not in remission Qualified Code(s): C90.00 - Multiple myeloma not having achieved remission Code(s): C90.00 - Multiple myeloma not having achieved remission (7) Pneumonia: Status: Acute Qualifiers: Laterality: bilateral Lung location: unspecified part of lung Pneumonia type: due to unspecified organism Qualified Code(s): J18.9 - Pneumonia, unspecified organism Code(s): J18.9 - Pneumonia, unspecified organism (8) NSTEMI (non-ST elevated myocardial infarction): -Likely supply demand ischemia -No acute ST-T wave changes -Patient does have Q waves in the anterior chest leads -Baseline troponin 518, [id number], delta 587 -Aspirin, statin -Cardiac echocardiogram diastolic dysfunction, EF 65%, no regional wall motion abnormalities -Cardiology has been consulted Status: Acute Code(s): I21.4 - Non-ST elevation (NSTEMI) myocardial infarction (9) Transaminitis: -Likely secondary to shock, improving Status: Acute Code(s): R74.0 - Nonspecific elevation of levels of transaminase and lactic acid dehydrogenase [LDH] (10) Thrombocytopenia: -Platelet count 31,000, -Lovenox on hold -Aspirin on hold -Monitor for signs of bleeding Status: Acute Code(s): D69.6 - Thrombocytopenia, unspecified Attestations Medical Necessity Statement*: Requires continued hospitalization due to acute respiratory failure Coding Level of Care Code 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[facility] Diagnoses Acute respiratory failure with hypoxia J96.01 Acute tubular necrosis N17.0 Metabolic acidosis E87.2 Sepsis A41.9; R65.20; J96.01 Acute respiratory failure type: with hypoxia Sepsis acute organ dysfunction status: with acute organ dysfunction Sepsis type: sepsis due to unspecified organism Severe sepsis acute organ dysfunction type: acute respiratory failure Severe sepsis shock status: without septic shock Immunosuppressed due to chemotherapy Z79.899 Multiple myeloma C90.00 Multiple myeloma remission status: not in remission Pneumonia J18.9 Laterality: bilateral Lung location: unspecified part of lung Pneumonia type: due to unspecified organism NSTEMI (non-ST elevated myocardial infarction) I21.4 Transaminitis R74.0 Thrombocytopenia D69.6
[2019-05-19 12:57] LABS: Glucose Point of Care 226 mg/dL (70-110)
[2019-05-19] MEDS: levoFLOXacin 750 mg Tablet PO (13:08)
[2019-05-19 15:46] LABS: Legionella Antibody <1:256
--- NOTE | 2019-05-19 16:59 | PC.NURSE ---
wasted 57 cc fentynl
[2019-05-19 17:51] LABS: Glucose Point of Care 226 mg/dL (70-110)
[2019-05-19] MEDS: amoxicillin-clav 875-125 mg Tablet 1 TAB PO (18:32)
--- NOTE | 2019-05-19 19:10 | P.CONIM_ITS ---
Providers/Reason For Consult Consulting Physican/Specialty*: REX Parekr MD/cardiology Reason for Consult*: Patient with respiratory failure, acute renal failure and elevated troponin T Attending Physician: Otto Gilbert MD Primary Care Provider: Saul Nieto Jr, MD History of Present Illness History of Present Illness Alta Red is a 83 year old female who was diagnosed with IgG kappa myeloma, on chemotherapy, presented with cough fever and shortness of breath. Apparently the patient went into respiratory failure in the emergency room requiring endotracheal intubation. She subsequently got admitted to the hospital ICU. Her post intubation was complicated with SVT and acute renal failure. Patient was diagnosed with IgG kappa myeloma. This was diagnosed in October 2017. Initially she was started on Velcade/Revlimid/dexamethasone. Because of her intolerance to Revlimid this had to be discontinued. She received 6 cycles of Velcade/dexamethasone . She was started on a maintenance dose of Revlimid 5 mg/week. But because of the skin eruptions, this had to be discontinued after 3 months or so. Currently she is on a second line therapy with daratumuab and carfilzomab, Decadron, started in March 2019. She received the first cycle of treatment on 05/15/2019. She started having the fever, cough and shortness of breath on the the night. She was admitted to the hospital on the . Has been having episodes of fever intermittently during the course of treatment. She is being treated for possible pneumonia. Currently she is extubated. Oxygen saturation is improving. Her troponin T on the day of admission was 518. The delta at 120 minutes was 267 and in 6 hours it went up to 587. The BNP was 17,000. Patient has no previous history for coronary artery disease, myocardial infarction or congestive heart failure. She has a history of high blood pressure and type 2 diabetes. She also is known to have hypothyroidism Review of Systems Narrative: CONSTITUTIONAL: Fever and shortness of breath as mentioned above EYES: No blurring of vision or other visual disturbances lately. ENT: No hoarseness of voice, auditory disturbances or sore throat. CARDIOVASCULAR: As mentioned above. RESPIRATORY: Transfers respiratory failure GASTROINTESTINAL: No hematemesis or melena. GENITOURINARY: History of kidney stones and renal insufficiency INTEGUMENTARY: No skin rashes or history of skin cancer. NEURO: No transient ischemic attacks or amaurosis. PSYCHIATRIC: No history of psychosis or major depression. HEMATOLOGIC: Thrombocytopenia with a chemotherapy ENDOCRINE: No history of polyuria or polydipsia. History of hypothyroidism MUSCULOSKELETAL: Degenerative joint disease, status post right hip replacement ALLERGY/IMMUNOLOGY: As mentioned above. Meds/Allergies Home Medications and Allergies Home Medications Medication Instructions Recorded Confirmed Type acetaminophen 650 mg 650 mg PO Q12H 05/15/19 05/16/19 History tablet,extended release amlodipine 5 mg tablet 5 mg PO DAILY 05/15/19 05/16/19 History aspirin 325 mg tablet,delayed 325 mg PO DAILY 05/15/19 05/16/19 History release hydrochlorothiazide 25 mg tablet 25 mg PO DAILY 05/15/19 05/16/19 History levothyroxine 150 mcg tablet 150 mcg PO DAILY 05/15/19 05/16/19 History meloxicam 15 mg tablet 15 mg PO DAILY 05/15/19 05/16/19 History metformin 500 mg tablet 500 mg PO DAILY 05/15/19 05/16/19 History multivitamin,hv-nyok-jhochdiv 1 tab PO DAILY 05/15/19 05/16/19 History potassium chloride 10 mEq 10 meq PO DAILY 05/15/19 05/16/19 History capsule,extended release sennosides 8.6 mg-docusate sodium 1 tab-cap PO DAILY 05/15/19 05/16/19 History 50 mg tablet vitamins A,C,B-bjgw-fowjwa 14,320 2 cap PO BID cap 05/15/19 05/16/19 History unit-226 mg-200 unit capsule losartan 25 mg PO DAILY 05/16/19 05/16/19 History omeprazole 20 mg PO DAILY 05/16/19 05/16/19 History Allergies Allergy/AdvReac Type Severity Reaction Status Date / Time lenalidomide [From Revlimid] Allergy ALGY-Rash Verified 05/16/19 12:42 Current Medications Current Medications Generic Name Dose Route Start Last Admin Trade Name Freq PRN Reason Stop Dose Admin Albuterol/Ipratropium 3 ml 05/16/19 22:00 05/19/19 15:13 Duoneb INHALATION 3 ml Q4H.RESPIRATORY SAÚL Administration Amoxicillin/Clavulanate Potassium 1 tab 05/19/19 18:00 05/19/19 18:32 Augmentin 875-125 Mg PO 1 tab BID SAÚL Administration Protocol Aspirin 81 mg 05/19/19 09:00 05/19/19 10:21 Aspirin Chewable PO 81 mg DAILY SAÚL Administration Atorvastatin Calcium 80 mg 05/17/19 09:00 05/19/19 10:00 Lipitor PO 80 mg DAILY SAÚL Administration Enoxaparin Sodium 30 mg 05/18/19 09:00 05/18/19 08:21 Lovenox SUBCUT 30 mg DAILY SAÚL Administration Fentanyl 1,000 mcg/ Sodium 100 mls @ 0 mls/hr 05/16/19 18:30 05/19/19 06:35 Chloride IV Infused .Q0M SAÚL Titration Protocol Per Protocol Insulin Aspart 0 unit 05/19/19 18:00 05/19/19 18:31 Novolog SUBCUT 6 unit TIDWM SAÚL Administration Protocol Levofloxacin 750 mg 05/19/19 13:00 05/19/19 13:08 Levaquin PO 750 mg Q48H SAÚL Administration Protocol Oseltamivir Phosphate 30 mg 05/16/19 21:00 05/19/19 17:46 Tamiflu Oral Susp PO 30 mg QID SAÚL Administration PFSH Acute PFSH: Medical History (Updated 05/20/19 @ 08:52 by Kelly Parker MD) Acute diastolic heart failure Arthritis Benign essential hypertension with target blood pressure below 140/90 Diabetes History of nephrolithiasis Hypertension Peripheral neuropathy Surgical History H/O: hysterectomy History of cholecystectomy History of mastectomy, subtotal History of right hip replacement History of thyroidectomy Family History Mother Congestive heart failure Social History Smoking and tobacco status: never smoked Vitals/I&O/Wt Last Vital Signs Temp 98.6 F 05/19/19 08:00 Pulse 82 05/19/19 18:00 Resp 18 05/19/19 18:00 BP 153/69 05/19/19 18:00 Pulse Ox 93 05/19/19 18:00 05/19/19 05/19/19 05/19/19 06:59 14:59 22:59 Intake Total 248.163 / 658.163 220 / 220 Output Total 850 / 1750 1150 / 1150 Balance -601.837 / -1091.837 -930 / -930 Physical Exam Narrative: EXAM NARRATIVE: GENERAL: The patient is alert and oriented times three. Not in any acute distress. Lumbar lethargic HEENT: Cold pallorno icterus or lymphadenopathy. The pupils are reactant to light. Oral cavity: There are no mucous membrane lesions. Funduscopic examination: The fundus is not visualized NECK: Trachea appears to be central. No masses noted. No JVD or thyromegaly appreciated. No carotid bruit. RESPIRATORY: Chest is symmetrical. No intercostals muscle retraction or any accessory muscle activation. There is no chest wall tenderness. Breath sounds are heard bilaterally. No rales or rhonchi heard. No evidence of any consolidation. Breath sounds are diminished at the bases BREASTS: Deferred. HEART: The PMI is in the 5th left intercostals space just inside the midclavicular line. No palpable precordial events. S1 and S2 are normal. No S3 or S4 heard. No pericardial rub or any click heard. Short systolic murmur in the left sternal border. No diastolic murmurs. ABDOMEN: No vessel pulsations or distention. No tenderness. No organomegaly appreciated. No abdominal bruit. Bowel sounds are normally heard. : Deferred. RECTAL: Deferred. LYMPHATIC: No lymphadenopathy noted in the neck. EXTREMITIES: No edema or cyanosis. No clubbing. The pulses are symmetrical bilaterally. The radial, femoral, dorsalis pedis and the posterior tibial pulses are palpated and found to be relatively of low volume and amplitude MUSCULOSKELETAL: No acute joint deformities or swelling SKIN: There are no significant scars or skin rash noted. NEUROPSYCHIATRIC: The patient is alert and oriented x3. Appears to be in a good mood. The higher functions are grossly within normal limits. No tremors or rigidity noted. Urinary Catheter Management^: Johnson: Cath Placed During This Visit: yes Reason for Continuing Indwelling Catheter: Acute Urinary Retention or Obstruction Urinary Catheter Date of Insertion: 05/16/19 Urinary Catheter Time of Insertion: 14:50 Data Labs: Other Labs: Abnormal lab results 05/19/19 05/19/19 05/19/19 Range/Units 03:34 03:34 03:34 WBC 13.5 H (4.0-10.0) 10^3/ uL RBC 3.40 L (4.1-5.3) 10^6/u L Hgb 10.8 L (11.5-15.3) g/dL Hct 32.5 L (37.0-47.0) % RDW 15.8 H (12.1-15.1) % Plt Count 31 L (130-400) 10^3/c mm MPV 14.3 H (7.4-10.4) fL Neut # (Auto) 12.4 H (1.8-7.7) 10^3/u L Lymph # (Auto) 0.6 L (0.8-4.8) 10^3/u L ABG HCO3 (22-26) mmol/L ABG Base Excess (-2.0-2.0) mmol/ L Hematocrit (37-47) % BUN 84 H* (8-23) mg/dL Creatinine 2.3 H (0.5-0.9) mg/dL Glucose 254 H (65-115) mg/dL Calculated Osmolal ity 301 H (285-295) mOsm/k g Calcium 8.2 L (8.5-10.5) mg/dL Phosphorus 5.0 H (2.5-4.5) mg/dL Magnesium 2.4 H (1.7-2.3) mg/dL AST 118 H (0-32) U/L C-Reactive Protein 30.3 H (0.0-4.9) mg/L Total Protein 6.4 L (6.6-8.7) g/dL Albumin 2.0 L (3.5-5.2) g/dL Procalcitonin 11.79 H (0-0.5) ng/mL 05/19/19 Range/Units 05:17 WBC (4.0-10.0) 10^3/ uL RBC (4.1-5.3) 10^6/u L Hgb (11.5-15.3) g/dL Hct (37.0-47.0) % RDW (12.1-15.1) % Plt Count (130-400) 10^3/c mm MPV (7.4-10.4) fL Neut # (Auto) (1.8-7.7) 10^3/u L Lymph # (Auto) (0.8-4.8) 10^3/u L ABG HCO3 21.9 L (22-26) mmol/L ABG Base Excess -3.1 L (-2.0-2.0) mmol/ L Hematocrit 33.6 L (37-47) % BUN (8-23) mg/dL Creatinine (0.5-0.9) mg/dL Glucose (65-115) mg/dL Calculated Osmolal ity (285-295) mOsm/k g Calcium (8.5-10.5) mg/dL Phosphorus (2.5-4.5) mg/dL Magnesium (1.7-2.3) mg/dL AST (0-32) U/L C-Reactive Protein (0.0-4.9) mg/L Total Protein (6.6-8.7) g/dL Albumin (3.5-5.2) g/dL Procalcitonin (0-0.5) ng/mL Micro: Micro: Microbiology 05/16/19 15:40 Gram Stain - Final Sputum - Endotrac heal Tube Aspirate Sputum Culture - F inal Strep pyogenes (grp a) Imaging^: Echo: My impression: The echocardiogram from 05/03/2019 revealed 1-Normal left ventricular cavity size. Severe left ventricular hypertrophy of concentric type.left ventricular ejection fraction is estimated at 58 %. No regional wall motion abnormalities. Grade I/IV diastolic dysfunction (abnormal relaxation filling pattern), normal to mildly elevated filling pressures. There appeared to be hyperdynamic cavity with obliteration. 2-There is no pericardial effusion. 3-No significant valve abnormalities. 4-Pulmonary artery systolic pressure is within normal limits. 5-Right atrial pressure is around 5 mm of mercury. 6-There are no prior echocardiogram studies to compare. Echocardiogram on 05/17/2019 revealed Normal left ventricular size and systolic function, EF 66% . Moderate left ventricular hypertrophy. Grade I/IV diastolic dysfunction (abnormal relaxation filling pattern), normal to mildly elevated filling pressures. Mildly increased left atrial size. Thickened mitral valve. Moderate mitral annular calcification. Thickened aortic valve. Trace aortic valve regurgitation. Trace tricuspid valve regurgitation. Estimated pulmonary artery peak systolic pressure 41 mmHg Compared to the study from 05/03/2019 , there may not be a significant change CT Chest: Radiologist's impression: CT of the chest revealed from 05/19/2019 1. There are bilateral pleural effusions with underlying compressive atelectasis or infiltrate. In combination with cardiomegaly, findings are consistent with congestive heart failure. 2. Bilateral patchy pulmonary ground-glass opacities are nonspecific and can be seen with pulmonary edema or pneumonia. 3. Cirrhotic liver with portal venous hypertension. 4. Multivessel atherosclerotic disease which involves the coronary arteries. EKG^: EKG 1: My Interpretation: Sinus tachycardia with poor R wave progression. Some nonspecific T wave changes in the high lateral leads. Short NH interval. EKG 4: My Interpretation: The most recent EKG from 05/17/2019 revealed sinus rhythm with a rate of 87 bpm. Diffuse T inversions in the anterolateral and inferior leads. Poor R wave progression. Some nonspecific ST changes. A&P Assessment and plan (1) NSTEMI (non-ST elevated myocardial infarction): Patient is a clinical features are consistent with an acute non-ST elevation myocardial infarction. She has persistent T wave changes in the anterolateral leads. Her LV ejection fraction is normal by echocardiogram. Hemodynamically she seems to be stable. Because of her thrombocytopenia, I may hold off on the Plavix. It may be appropriate to continue the baby aspirin and statin. Also be started on a low-dose of beta-jeff, namely metoprolol 25 mg p.o. twice daily. Most likely the non-ST relation myocardial infarction was complicated with her diastolic heart failure. Currently the heart failure is compensated. Status: Acute Code(s): I21.4 - Non-ST elevation (NSTEMI) myocardial infarction (2) Acute diastolic heart failure: Heart failure seems to be treated at this time. She has no evidence of any significant LV dysfunction. Most likely this is ischemia related. Her LV ejection fraction is within normal limits by the echocardiogram. There is no evidence of any chemotherapy-induced cardiomyopathy. Status: Acute Code(s): I50.31 - Acute diastolic (congestive) heart failure (3) Acute respiratory failure with hypoxia: She is extubated. The respiratory status is improving. Most likely she had an element of diastolic heart failure which seems to be improving. Status: Acute Code(s): J96.01 - Acute respiratory failure with hypoxia (4) Thrombocytopenia: Because of the declining platelet count, it would be appropriate to hold off on Plavix or similar antiplatelet drugs Status: Acute Code(s): D69.6 - Thrombocytopenia, unspecified (5) Multiple myeloma: Management as per the oncology service Status: Acute Qualifiers: Multiple myeloma remission status: not in remission Qualified Code(s): C90.00 - Multiple myeloma not having achieved remission Code(s): C90.00 - Multiple myeloma not having achieved remission (6) Acute kidney injury: Blood urea nitrogen is going up. This could be multifactorial. Creatinine seems to be stable or slightly improving Status: Acute Code(s): N17.9 - Acute kidney failure, unspecified (7) Benign essential hypertension with target blood pressure below 140/90: Elevated blood pressure is a stage II. May start her on metoprolol 25 mg p.o. twice daily. Status: Acute Code(s): I10 - Essential (primary) hypertension Additional A&P Information Other problems are Possible pneumonia, improving Type 2 diabetes-blood sugar seems to be improving Elevated liver enzymes-be multifactorial, getting better Hypothyroidism, clinically euthyroid In view of the patient's multiple comorbidities, it might be appropriate at this time to continue the medical treatment. She may require a cardiac catheterization, to further evaluate the coronary status. Since she seems to be stable with no chest pain or any hemodynamic compromise, it would be appropriate to hold off on this for the time being. I also may add isosorbide mononitrate 30 mg p.o. daily to the current medications. Based on the patient clinical progress, further recommendations will be made Coding Level of Care Code Acute Urology Physician Assistant for [facility] Fwd Diagnoses NSTEMI (non-ST elevated myocardial infarction) I21.4 Acute diastolic heart failure I50.31 Acute respiratory failure with hypoxia J96.01 Thrombocytopenia D69.6 Multiple myeloma C90.00 Multiple myeloma remission status: not in remission Acute kidney injury N17.9 Benign essential hypertension with target blood pressure below 140/90 I10 Time Spent (min) 70
[2019-05-19] MEDS: metoprolol tartrate 25 mg Tablet PO (21:02)
[2019-05-19 21:21] LABS: Glucose Point of Care 184 mg/dL (70-110)
[2019-05-20] VITALS (25 sets, daily range): BP systolic 131–162; BP diastolic 58–75; PULSE 68–103; RESP 13–23; TEMP 36.4–36.8; O2SAT 88–98
[2019-05-20] MEDS: ipratropium-albuterol 3 mL Neb INHALATION ×6 (00:14→19:52)
[2019-05-20 05:41] LABS: Basophils % 0.1 %; Hematocrit 31.7 % (37.0-47.0); Hemoglobin 10.4 g/dL (11.5-15.3); Lymphocytes # 0.8 10^3/uL (0.8-4.8); Lymphocytes % 5.9 %; Mean Corpuscular HGB Conc 32.8 g/dL (30.0-36.0); Mean Corpuscular Hemoglobin 30.3 pg (28.0-34.0); Mean Corpuscular Volume 92.4 fL (81-99); Monocytes # 0.9 10^3/uL (0.2-0.9); Monocytes % 6.7 %; Neutrophils # 11.5 10^3/uL (1.8-7.7); Neutrophils % 86.1 %; Nucleated Red Blood Cells # 0.1 /100WBC; Nucleated Red Blood Cells % 0.7 %; Platelet Count 29 10^3/cmm (130-400); Red Blood Count 3.43 10^6/uL (4.1-5.3); Red Cell Distribution Width 15.7 % (12.1-15.1); White Blood Count 13.4 10^3/uL (4.0-10.0)
[2019-05-20 06:10] LABS: Alanine Aminotransferase 59 U/L (0-33); Albumin Level 2.3 g/dL (3.5-5.2); Alkaline Phosphatase 59 IU/L (35-105); Anion Gap 12.7 (5-19); Aspartate Amino Transferase 109 U/L (0-32); Calcium 8.6 mg/dL (8.5-10.5); Carbon Dioxide 27 mmol/L (22-29); Chloride 109 mmol/L (98-107); Glucose 168 mg/dL (65-115); Magnesium 2.4 mg/dL (1.7-2.3); Osmolality Calculated 304 mOsm/kg (285-295); Phosphorus 3.5 mg/dL (2.5-4.5); Potassium 3.7 mmol/L (3.5-5.1); Sodium 145 mmol/L (136-145); Total Bilirubin 1.1 mg/dL (0.15-1.2); Total Protein 6.3 g/dL (6.6-8.7)
[2019-05-20 06:22] LABS: Blood Urea Nitrogen 82 mg/dL (8-23)
[2019-05-20 06:24] LABS: Procalcitonin 6.52 ng/mL (0-0.5)
[2019-05-20 06:59] LABS: Slide Review Slide Review Perform
[2019-05-20 07:42] LABS: Glucose Point of Care 169 mg/dL (70-110)
--- NOTE | 2019-05-20 07:47 | P.PN_ITS ---
Subjective Subjective: Interval history: Alta reports she is feeling okay. History and physical reviewed. Medications: Reviewed: Yes Vitals/I&O/Wt Last Vital Signs Temp 98.0 F 05/20/19 04:00 Pulse 74 05/20/19 06:00 Resp 13 05/20/19 06:00 BP 146/71 05/20/19 06:00 Pulse Ox 94 05/20/19 06:00 05/19/19 05/20/19 05/20/19 22:59 06:59 14:59 Intake Total 320 / 320 Output Total 1150 / 1150 1150 / 2300 Balance -830 / -830 -1150 / -1980 Physical Exam Narrative: EXAM NARRATIVE: General exam is no apparent distress Cardiovascular regular rate and rhythm without murmur Lungs clear Abdomen soft, positive bowel sounds Extremities no cyanosis clubbing or edema Urinary Catheter Management^: Johnson: Cath Placed During This Visit: yes Reason for Continuing Indwelling Catheter: Accurate Measurement of Urinary Output in Critically Ill Patients Urinary Catheter Date of Insertion: 05/16/19 Urinary Catheter Time of Insertion: 14:50 Data : 05/20/19 04:42 05/20/19 04:42 Micro: Microbiology 05/16/19 15:40 Gram Stain - Final Sputum - Endotracheal Tube Aspirate Sputum Culture - Final Strep pyogenes (grp a) A&P Assessment and plan (1) Acute respiratory failure with hypoxia: Appears to be secondary to acute pulmonary edema with quick resolution. She appears improved. She was extubated Monday Secondary to concern of possible viral trigger or infection she is on Tamiflu, oral antibiotics Consider transfer out of the ICU this afternoon We will not remove central line today secondary to platelets still significantly low, possible need for access centrally Currently on prednisone 40 mg daily. Consider discontinuation of this soon Status: Acute Code(s): J96.01 - Acute respiratory failure with hypoxia (2) Acute tubular necrosis: Improved urine output. Creatinine minimally improved Status: Acute Code(s): N17.0 - Acute kidney failure with tubular necrosis (3) Metabolic acidosis: Resolved Status: Acute Code(s): E87.2 - Acidosis (4) Sepsis: Blood cultures unremarkable. Currently continue Augmentin, Levaquin Status: Acute Qualifiers: Acute respiratory failure type: with hypoxia Sepsis acute organ dysfunction status: with acute organ dysfunction Sepsis type: sepsis due to unspecified organism Severe sepsis acute organ dysfunction type: acute respiratory failure Severe sepsis shock status: without septic shock Qualified Code(s): A41.9 - Sepsis, unspecified organism; R65.20 - Severe sepsis without septic shock; J96.01 - Acute respiratory failure with hypoxia Code(s): A41.9 - Sepsis, unspecified organism (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: Status: Acute Code(s): Z79.899 - Other nursing home (current) drug therapy (6) Multiple myeloma: Status: Acute Qualifiers: Multiple myeloma remission status: not in remission Qualified Code(s): C90.00 - Multiple myeloma not having achieved remission Code(s): C90.00 - Multiple myeloma not having achieved remission (7) Pneumonia: Currently on Augmentin, Levaquin Sputum culture showed group A strep, doubtful this was pathogen. Status: Acute Qualifiers: Laterality: bilateral Lung location: unspecified part of lung Pneumo thea type: due to unspecified organism Qualified Code(s): J18.9 - Pneumonia, unspecified organism Code(s): J18.9 - Pneumonia, unspecified organism (8) NSTEMI (non-ST elevated myocardial infarction): Cardiology has been consulted. For now medical management considering severe thrombocytopenia. At this point secondary to worsening platelets, all antiplatelets have been held. Continue beta-jeff, statin, nitrate Echocardiogram demonstrated preserved EF Status: Acute Code(s): I21.4 - Non-ST elevation (NSTEMI) myocardial infarction (9) Transaminitis: Improving Status: Acute Code(s): R74.0 - Nonspecific elevation of levels of transaminase and lactic acid dehydr ogenase [LDH] (10) Thrombocytopenia: Holding all antiplatelets and anticoagulants Status: Acute Code(s): D69.6 - Thrombocytopenia, unspecified Additional A&P Information SCDs for DVT prophylaxis Attestations Medical Necessity Statement*: Needs continued hospitalization secondary to acute respiratory failure, presumably secondary to pulmonary edema. Coding Level of Care Code Acute [employer]k Screen Layout Drafter for [facility] Fwd Diagnoses Acute respiratory failure with hypoxia J96.01 Acute tubular necrosis N17.0 Metabolic acidosis E87.2 Sepsis A41.9; R65.20; J96.01 Acute respiratory failure type: with hypoxia Sepsis acute organ dysfunction status: with acute organ dysfunction Sepsis type: sepsis due to unspecified organism Severe sepsis acute organ dysfunction type: acute respiratory failure Severe sepsis shock status: without septic shock Immunosuppressed due to chemotherapy Z79.899 Multiple myeloma C90.00 Multiple myeloma remission status: not in remission Pneumonia J18.9 Laterality: bilateral Lung location: unspecified part of lung Pneumonia type: due to unspecified organism NSTEMI (non-ST elevated myocardial infarction) I21.4 Transaminitis R74.0 Thrombocytopenia D69.6
[2019-05-20] MEDS: pantoprazole DR 40 mg Tablet PO (08:25)
[2019-05-20] MEDS: metoprolol tartrate 25 mg Tablet PO ×2 (08:25→17:33)
[2019-05-20] MEDS: isosorbide mononitrate ER 30 mg Tablet PO (08:25)
[2019-05-20] MEDS: predniSONE 20 mg Tablet 40 MG PO (08:25)
[2019-05-20] MEDS: amlodipine 5 mg Tablet PO (08:26)
[2019-05-20] MEDS: amoxicillin-clav 875-125 mg Tablet 1 TAB PO ×2 (08:26→17:33)
[2019-05-20] MEDS: atorvastatin 40 mg Tablet 80 MG PO (08:26)
[2019-05-20] MEDS: levothyroxine 150 mcg Tablet PO (08:26)
--- NOTE | 2019-05-20 08:57 | P.PN_ITS ---
Subjective Subjective: Interval history: Patient is feeling okay. No chest pain or unusual shortness of breath. Oxygenation continues to improve. No new symptoms. Telemetry shows sinus rhythm. Medications: Reviewed: Yes Medication Review Details: Current Medications Albuterol/Ipratropium (Duoneb) 3 ml INHALATION Q4H.RESPIRATORY [facility] Last Admin: 05/20/19 07:49 Dose: 3 ml Documented by: Amlodipine Besylate (Norvasc) 5 mg PO DAILY [facility] Last Admin: 05/20/19 08:26 Dose: 5 mg Documented by: Amoxicillin/Clavulanate Potassium (Augmentin 875-125 Mg) 1 tab PO BID [facility]; Protocol Last Admin: 05/20/19 08:26 Dose: 1 tab Documented by: Atorvastatin Calcium (Lipitor) 80 mg PO DAILY [facility] Last Admin: 05/20/19 08:26 Dose: 80 mg Documented by: Dextrose (D50w) 25 ml IVP ONCE PRN; Protocol PRN Reason: hypoglycemia protocol Dextrose (D50w) 50 ml IVP PRN PRN; Protocol PRN Reason: hypoglycemia protocol Glucagon (Glucagen) 1 mg IM ONCE PRN; Protocol PRN Reason: Adult Acute Hypoglycemia Prot. Dextrose (D5w) 500 mls @ 100 mls/hr IV ONCE PRN; Protocol PRN Reason: Adult Acute Hypoglycemia Prot Insulin Aspart (Novolog) 0 unit SUBCUT TIDWM [facility]; Protocol Last Admin: 05/20/19 08:25 Dose: 2 unit Documented by: Isosorbide Mononitrate (Imdur) 30 mg PO DAILY [facility] Last Admin: 05/20/19 08:25 Dose: 30 mg Documented by: Lanolin (Lanolin Oint) 1 applic TOPICAL PRN PRN PRN Reason: DRYNESS Levofloxacin (Levaquin) 750 mg PO Q48H [facility]; Protocol Last Admin: 05/19/19 13:08 Dose: 750 mg Documented by: Levothyroxine Sodium (Synthroid) 150 mcg PO DAILY [facility] Last Admin: 05/20/19 08:26 Dose: 150 mcg Documented by: Metoprolol Tartrate (Lopressor) 25 mg PO BID [facility] Last Admin: 05/20/19 08:25 Dose: 25 mg Documented by: Oseltamivir Phosphate (Tamiflu Oral Susp) 30 mg PO QID [facility] Last Admin: 05/20/19 08:25 Dose: 30 mg Documented by: Pantoprazole Sodium (Protonix) 40 mg PO DAILY [facility] Last Admin: 05/20/19 08:25 Dose: 40 mg Documented by: Prednisone (Prednisone) 40 mg PO DAILY [facility] Last Admin: 05/20/19 08:25 Dose: 40 mg Documented by: Vitals/I&O/Wt Last Vital Signs Temp 97.6 F 05/20/19 08:00 Pulse 73 05/20/19 08:00 Resp 16 05/20/19 08:00 BP 137/66 05/20/19 08:00 Pulse Ox 96 05/20/19 08:00 05/19/19 05/20/19 05/20/19 22:59 06:59 14:59 Intake Total 320 / 320 Output Total 1150 / 1150 1150 / 2300 Balance -830 / -830 -1150 / -1980 Physical Exam Narrative: EXAM NARRATIVE: GENERAL: The patient is alert and oriented times three. Not in any acute distress. Lumbar lethargic HEENT: No significant pallor or icterus. No lymphadenopathy. There are no mucous membrane lesions. NECK: Trachea appears to be central. No masses noted. No JVD or thyromegaly appreciated. No carotid bruit. RESPIRATORY: Chest is symmetrical. No intercostals muscle retraction or any accessory muscle activation. There is no chest wall tenderness. Breath sounds are heard bilaterally. No rales or rhonchi heard. No evidence of any consolidation. Breath sounds are diminished at the bases BREASTS: Deferred. HEART: The PMI could not be palpated. No palpable precordial events. S1 and S2 are normal. No S3 or S4 heard. No pericardial rub or any click heard. Short systolic murmur in the left sternal border. No diastolic murmurs. ABDOMEN: No vessel pulsations or distention. No tenderness. No organomegaly a ppreciated. No abdominal bruit. Bowel sounds are normally heard. : Deferred. RECTAL: Deferred. LYMPHATIC: No lymphadenopathy noted in the neck. EXTREMITIES: No edema or cyanosis. No clubbing. The pulses are symmetrical bilaterally. The radial, femoral, dorsalis pedis and the posterior tibial pulses are palpated and found to be relatively of low volume and amplitude MUSCULOSKELETAL: No acute joint deformities or swelling SKIN: There are no significant scars or skin rash noted. NEUROPSYCHIATRIC: The patient is alert and oriented x3. Appears to be in a good mood. No focal motor deficits. Urinary Catheter Management^: Johnson: Cath Placed During This Visit: yes Reason for Continuing Indwelling Catheter: Accurate Measurement of Urinary Output in Critically Ill Patients Urinary Catheter Date of Insertion: 05/16/19 Urinary Catheter Time of Insertion: 14:50 Data : 05/21/19 03:15 05/21/19 03:15 Micro: Microbiology 05/16/19 15:40 Gram Stain - Final Sputum - Endotracheal Tube Aspirate Sputum Culture - Final Strep pyogenes (grp a) A&P Assessment and plan (1) NSTEMI (non-ST elevated myocardial infarction): Patient is a clinical features are consistent with an acute non-ST elevation myocardial infarction. She has persistent T wave changes in the anterolateral leads. Her LV ejection fraction is normal by echocardiogram. Hemodynamically she seems to be stable. Because of her thrombocytopenia, I may hold off on the Plavix. It may be appropriate to continue the baby aspirin and statin. Also be started on a low-dose of beta-jeff, namely metoprolol 25 mg p.o. twice daily. Most likely the non-ST relation myocardial infarction was complicated with her diastolic heart failure. Currently the heart failure is compensated. Currently he is tolerating medications well Status: Acute Code(s): I21.4 - Non-ST elevation (NSTEMI) myocardial infarction (2) Acute diastolic heart failure: Heart failure seems to be treated at this time. She has no evidence of any significant LV dysfunction. Most likely this is ischemia related. Her LV ejection fraction is within normal limits by the echocardiogram. There is no evidence of any chemotherapy-induced cardiomyopathy. Status: Acute Code(s): I50.31 - Acute diastolic (congestive) heart failure (3) Acute respiratory failure with hypoxia: She is extubated. The respiratory status is improving. Most likely she had an element of diastolic heart failure which seems to be improving. May continue on the current measures. Status: Acute Code(s): J96.01 - Acute respiratory failure with hypoxia (4) Thrombocytopenia: Because of the declining platelet count, it would be appropriate to hold off on Plavix or similar antiplatelet drugs Status: Acute Code(s): D69.6 - Thrombocytopenia, unspecified (5) Multiple myeloma: Management as per the oncology service Status: Acute Qualifiers: Multiple myeloma remission status: not in remission Qualified Code(s): C90.00 - Multiple myeloma not having achieved remission Code(s): C90.00 - Multiple myeloma not having achieved remission (6) Acute kidney injury: Blood urea nitrogen is going up. This could be multifactorial. Creatinine seems to be stable Status: Acute Code(s): N17.9 - Acute kidney failure, unspecified (7) Benign essential hypertension with target blood pressure below 140/90: We will continue to optimize the antihypertensive medications Status: Acute Code(s): I10 - Essential (primary) hypertension Additional A&P Information Other problems are Possible pneumonia, improving Type 2 diabetes-blood sugar seems to be improving Elevated liver enzymes-be multifactorial, getting better Hypothyroidism, clinically euthyroid In view of the patient's multiple comorbidities, it might be appropriate at this time to continue the medical treatment. She may require a cardiac catheterization, to further evaluate the coronary status. Since she seems to be stable with no chest pain or any hemodynamic compromise, it would be appropriate to hold off on this for the time being. Continue on the current occasions. 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
[2019-05-20 11:53] LABS: Glucose Point of Care 191 mg/dL (70-110)
[2019-05-20 16:18] LABS: Glucose Point of Care 240 mg/dL (70-110)
--- NOTE | 2019-05-20 20:24 | PC.NURSE ---
REPORT CALLED TO FRAN VILLANUEVA. PT TRANSPORTED TO CSU VIA WHEELCHAIR. PT DAUGHTER WAS CALLED AND UPDATED. PT HAD NO COMPLAINTS WHEN BEING TRANSPORTED.
[2019-05-20 20:44] LABS: Glucose Point of Care 228 mg/dL (70-110)
--- NOTE | 2019-05-20 21:20 | PC.NURSE ---
PT ARRIVED TO FLOOR FROM ICU TO CSU 102 VIA BED. PT V/S HR 93, BP 132/66, RR 13, SPO2 91%. PT IS A&O X4. PT HAS 0 C/O PAIN AT THIS TIME. WILL CONTINUE TO MONITOR.
[2019-05-21] VITALS (20 sets, daily range): BP systolic 130–153; BP diastolic 56–78; PULSE 69–92; RESP 12–22; TEMP 36.5–37; O2SAT 90–98
[2019-05-21 03:47] LABS: Basophils % 0.1 %; Eosinophils % 0.3 %; Hematocrit 32.4 % (37.0-47.0); Hemoglobin 10.5 g/dL (11.5-15.3); Lymphocytes # 0.8 10^3/uL (0.8-4.8); Lymphocytes % 8.1 %; Mean Corpuscular HGB Conc 32.4 g/dL (30.0-36.0); Mean Corpuscular Volume 95.6 fL (81-99); Monocytes # 0.8 10^3/uL (0.2-0.9); Monocytes % 7.5 %; Neutrophils # 8.5 10^3/uL (1.8-7.7); Neutrophils % 82.4 %; Nucleated Red Blood Cells # 0.1 /100WBC; Nucleated Red Blood Cells % 0.8 %; Platelet Count 36 10^3/cmm (130-400); Red Blood Count 3.39 10^6/uL (4.1-5.3); Red Cell Distribution Width 15.9 % (12.1-15.1); White Blood Count 10.4 10^3/uL (4.0-10.0)
[2019-05-21 03:55] LABS: Alanine Aminotransferase 64 U/L (0-33); Albumin Level 2.5 g/dL (3.5-5.2); Alkaline Phosphatase 65 IU/L (35-105); Anion Gap 13.9 (5-19); Aspartate Amino Transferase 120 U/L (0-32); Calcium 9.2 mg/dL (8.5-10.5); Carbon Dioxide 26 mmol/L (22-29); Chloride 111 mmol/L (98-107); Globulin 3.5 g/dL (1.3-4.6); Glucose 135 mg/dL (65-115); Osmolality Calculated 307 mOsm/kg (285-295); Potassium 3.9 mmol/L (3.5-5.1); Sodium 147 mmol/L (136-145)
[2019-05-21 04:01] LABS: Blood Urea Nitrogen 91 mg/dL (8-23)
--- NOTE | 2019-05-21 04:08 | PC.NURSE ---
CRITICAL BUN CALLED TO DR HARRY. NO NEW ORDERS AT THIS TIME.
[2019-05-21] MEDS: ipratropium-albuterol 3 mL Neb INHALATION ×7 (04:28→23:50)
[2019-05-21 06:26] LABS: Glucose Point of Care 121 mg/dL (70-110)
--- NOTE | 2019-05-21 08:28 | PM.PN ---
Subjective Subjective: Interval history: Patient continues to improve. No specific complaints at this time. No chest pain or palpitations. No fever, chills or cough. Medications: Reviewed: Yes Medication Review Details: Current Medications Albuterol/Ipratropium (Duoneb) 3 ml INHALATION Q4H.RESPIRATORY [facility] Last Admin: 05/21/19 08:11 Dose: 3 ml Documented by: Amlodipine Besylate (Norvasc) 5 mg PO DAILY [facility] Last Admin: 05/20/19 08:26 Dose: 5 mg Documented by: Amoxicillin/Clavulanate Potassium (Augmentin 875-125 Mg) 1 tab PO BID [facility]; Protocol Last Admin: 05/20/19 17:33 Dose: 1 tab Documented by: Atorvastatin Calcium (Lipitor) 80 mg PO DAILY [facility] Last Admin: 05/20/19 08:26 Dose: 80 mg Documented by: Dextrose (D50w) 25 ml IVP ONCE PRN; Protocol PRN Reason: hypoglycemia protocol Dextrose (D50w) 50 ml IVP PRN PRN; Protocol PRN Reason: hypoglycemia protocol Glucagon (Glucagen) 1 mg IM ONCE PRN; Protocol PRN Reason: Adult Acute Hypoglycemia Prot. Dextrose (D5w) 500 mls @ 100 mls/hr IV ONCE PRN; Protocol PRN Reason: Adult Acute Hypoglycemia Prot Insulin Aspart (Novolog) 0 unit SUBCUT TIDWM [facility]; Protocol Last Admin: 05/21/19 06:59 Dose: Not Given Documented by: Isosorbide Mononitrate (Imdur) 30 mg PO DAILY [facility] Last Admin: 05/20/19 08:25 Dose: 30 mg Documented by: Lanolin (Lanolin Oint) 1 applic TOPICAL PRN PRN PRN Reason: DRYNESS Levofloxacin (Levaquin) 750 mg PO Q48H [facility]; Protocol Last Admin: 05/19/19 13:08 Dose: 750 mg Documented by: Levothyroxine Sodium (Synthroid) 150 mcg PO DAILY [facility] Last Admin: 05/20/19 08:26 Dose: 150 mcg Documented by: Metoprolol Tartrate (Lopressor) 25 mg PO BID [facility] Last Admin: 05/20/19 17:33 Dose: 25 mg Documented by: Oseltamivir Phosphate (Tamiflu Oral Susp) 30 mg PO QID [facility] Last Admin: 05/20/19 21:42 Dose: 30 mg Documented by: Pantoprazole Sodium (Protonix) 40 mg PO DAILY [facility] Last Admin: 05/20/19 08:25 Dose: 40 mg Documented by: Prednisone (Prednisone) 40 mg PO DAILY [facility] Last Admin: 05/20/19 08:25 Dose: 40 mg Documented by: Vitals/I&O/Wt Last Vital Signs Temp 97.9 F 05/21/19 07:16 Pulse 78 05/21/19 08:20 Resp 18 05/21/19 08:20 BP 138/70 05/21/19 07:16 Pulse Ox 98 05/21/19 08:20 05/20/19 05/21/19 05/21/19 22:59 06:59 14:59 Intake Total 240 / 460 Output Total 900 / 900 675 / 1575 Balance -660 / -440 -675 / -1115 Physical Exam Narrative: EXAM NARRATIVE: GENERAL: The patient is alert and oriented times three. Not in any acute distress. Minimal pallor HEENT: No significant pallor or icterus. No lymphadenopathy. There are no mucous membrane lesions. NECK: Trachea appears to be central. No masses noted. No JVD or thyromegaly appreciated. No carotid bruit. RESPIRATORY: Chest is symmetrical. No intercostals muscle retraction or any accessory muscle activation. There is no chest wall tenderness. Breath sounds are heard bilaterally. No rales or rhonchi heard. No evidence of any consolidation. Breath sounds are diminished at the bases BREASTS: Deferred. HEART: The PMI could not be palpated. No palpable precordial events. S1 and S2 are normal. No S3 or S4 heard. No pericardial rub or any click heard. Short systolic murmur in the left sternal border. No diastolic murmurs. ABDOMEN: No vessel pulsations or distention. No tenderness. No organomegaly appreciated. No abdominal bruit. Bowel sounds are normally heard. : Deferred. RECTAL: Deferred. LYMPHATIC: No lymphadenopathy noted in the neck. EXTREMITIES: No edema or cyanosis. No clubbing. The pulses are symmetrical bilaterally. The radial, femoral, dorsalis pedis and the posterior tibial pulses are palpated and found to be relatively of low volume and amplitude MUSCULOSKELETAL: No acute joint deformities or swelling SKIN: There are no significant scars or skin rash noted. NEUROPSYCHIATRIC: The patient is alert and oriented x3. Appears to be in a good mood. No focal motor deficits. Urinary Catheter Management^: Johnson: Cath Placed During This Visit: yes Reason for Continuing Indwelling Catheter: Accurate Measurement of Urinary Output in Critically Ill Patients Urinary Catheter Date of Insertion: 05/16/19 Urinary Catheter Time of Insertion: 14:50 Data : 05/22/19 03:25 05/22/19 03:25 A&P Assessment and plan (1) NSTEMI (non-ST elevated myocardial infarction): Patient is a clinical features are consistent with an acute non-ST elevation myocardial infarction. She has persistent T wave changes in the anterolateral leads. Her LV ejection fraction is normal by echocardiogram. Hemodynamically she seems to be stable. Because of her thrombocytopenia, I may hold off on the Plavix. May continue on your current medications. Some improvement of the platelet count Status: Acute Code(s): I21.4 - Non-ST elevation (NSTEMI) myocardial infarction (2) Acute diastolic heart failure: Heart failure seems to be treated at this time. She has no evidence of any significant LV dysfunction. Most likely this is ischemia related. Her LV ejection fraction is within normal limits by the echocardiogram. There is no evidence of any chemotherapy-induced cardiomyopathy. Status: Acute Code(s): I50.31 - Acute diastolic (congestive) heart failure (3) Acute respiratory failure with hypoxia: She is extubated. The respiratory status continues to improve. Most likely she had an element of diastolic heart failure which seems to have resolved. May continue on the current measures. Status: Acute Code(s): J96.01 - Acute respiratory failure with hypoxia (4) Thrombocytopenia: The platelet count seems to be slowly improving. Evidence of bleed. Status: Acute Code(s): D69.6 - Thrombocytopenia, unspecified (5) Multiple myeloma: Management as per the oncology service Status: Acute Qualifiers: Multiple myeloma remission status: not in remission Qualified Code(s): C90.00 - Multiple myeloma not having achieved remission Code(s): C90.00 - Multiple myeloma not having achieved remission (6) Acute kidney injury: BUN/creatinine seems to be improving. Status: Acute Code(s): N17.9 - Acute kidney failure, unspecified (7) Benign essential hypertension with target blood pressure below 140/90: Currently the blood pressure is under control. Status: Acute Code(s): I10 - Essential (primary) hypertension Additional A&P Information Other problems are Possible pneumonia, improving Type 2 diabetes-blood sugar seems to be improving Elevated liver enzymes-needs a follow-up evaluation Hypothyroidism, clinically euthyroid In view of the patient's multiple comorbidities, it might be appropriate at this time to continue the medical treatment. She may require a cardiac catheterization, to further evaluate the coronary status. Since she seems to be stable with no chest pain or any hemodynamic compromise, it would be appropriate to hold off on this for the time being. Continue on the current occasions. Today ,had a long discussion with the patient's daughter. Because of the patient's multiple comorbidities, it was decided not to subject her through any invasive procedures. She is going to discuss with her father as well about this and let us know, if there is any difference of opinion. Since the family has no change of mind, may continue on the current measures. 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
[2019-05-21] MEDS: amoxicillin-clav 875-125 mg Tablet 1 TAB PO ×2 (08:40→17:24)
[2019-05-21] MEDS: metoprolol tartrate 25 mg Tablet PO ×2 (08:40→17:24)
[2019-05-21] MEDS: amlodipine 5 mg Tablet PO (08:41)
[2019-05-21] MEDS: isosorbide mononitrate ER 30 mg Tablet PO (08:41)
[2019-05-21] MEDS: predniSONE 20 mg Tablet 40 MG PO (08:41)
[2019-05-21] MEDS: pantoprazole DR 40 mg Tablet PO (08:41)
[2019-05-21] MEDS: levothyroxine 150 mcg Tablet PO (08:41)
[2019-05-21] MEDS: atorvastatin 40 mg Tablet 80 MG PO (08:42)
--- NOTE | 2019-05-21 10:19 | PC.SOCIAL ---
IMM Updated Updated pt on Pg 2 IMM. NO questions voiced. Provided pt a copy & left on their bedside table. Signed, dated, & timed copy in chart.
--- NOTE | 2019-05-21 10:34 | PM.PN ---
Subjective Subjective: Interval history: Alta reports no difficulty breathing. She reports she feels weak. Medications: Reviewed: Yes Vitals/I&O/Wt Last Vital Signs Temp 97.9 F 05/21/19 07:16 Pulse 78 05/21/19 08:20 Resp 18 05/21/19 08:20 BP 138/70 05/21/19 07:16 Pulse Ox 98 05/21/19 08:20 05/20/19 05/21/19 05/21/19 22:59 06:59 14:59 Intake Total 240 / 460 Output Total 900 / 900 675 / 1575 Balance -660 / -440 -675 / -1115 Physical Exam Narrative: EXAM NARRATIVE: General exam is no apparent distress Cardiovascular regular rate and rhythm without murmur Lungs clear Abdomen soft, positive bowel sounds Extremities no cyanosis clubbing or edema Urinary Catheter Management^: Johnson: Cath Placed During This Visit: yes Reason for Continuing Indwelling Catheter: Accurate Measurement of Urinary Output in Critically Ill Patients Urinary Catheter Date of Insertion: 05/16/19 Urinary Catheter Time of Insertion: 14:50 Data : 05/21/19 03:15 05/21/19 03:15 A&P Assessment and plan (1) Acute respiratory failure with hypoxia: Appears to be secondary to acute pulmonary edema with quick resolution. She appears improved. She was extubated Monday Secondary to concern of possible viral trigger or infection she is on Tamiflu, oral antibiotics Covid was negative Continue prednisone 40 mg a day. This will be tapered. There was a concern of reaction to chemotherapy. At this point she has had over 5 days of Tamiflu, will discontinue. Status: Acute Code(s): J96.01 - Acute respiratory failure with hypoxia (2) Acute tubular necrosis: Creatinine slightly improved. BUN still elevated. Continue to follow. Status: Acute Code(s): N17.0 - Acute kidney failure with tubular necrosis (3) Metabolic acidosis: Resolved Status: Acute Code(s): E87.2 - Acidosis (4) Sepsis: Blood cultures unremarkable. 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 Status: Acute Qualifiers: Laterality: bilateral Lung location: unspecified part of lung Pneumonia type: due to unspecified organism Qualified Code(s): J18.9 - Pneumonia, unspecified organism Code(s): J18.9 - Pneumonia, unspecified organism (8) NSTEMI (non-ST elevated myocardial infarction): Cardiology has been consulted. For now medical management considering severe thrombocytopenia. At this point secondary to worsening platelets, all antiplatelets have been held. Continue beta-jeff, statin, nitrate Echocardiogram demonstrated preserved EF Status: Acute Code(s): I21.4 - Non-ST elevation (NSTEMI) myocardial infarction (9) Transaminitis: Improving Status: Acute Code(s): R74.0 - Nonspecific elevation of levels of transaminase and lactic acid dehydrogenase [LDH] (10) Thrombocytopenia: Holding all antiplatelets and anticoagulants. Slightly improved Status: Acute Code(s): D69.6 - Thrombocytopenia, unspecified Additional A&P Information SCDs for DVT prophylaxis Physical therapy evaluation. Potential discharge tomorrow with home health or [facility] facility Attestations Medical Necessity Statement*: Needs continued hospitalization, for close follow-up of platelet count, renal function Coding Level of Care Code Acute Radon Inspector for [facility] Diagnoses Acute respiratory failure with hypoxia J96.01 Acute tubular necrosis N17.0 Metabolic acidosis E87.2 Sepsis A41.9; R65.20; J96.01 Acute respiratory failure type: with hypoxia Sepsis acute organ dysfunction status: with acute organ dysfunction Sepsis type: sepsis due to unspecified organism Severe sepsis acute organ dysfunction type: acute respiratory failure Severe sepsis shock status: without septic shock Immunosuppressed due to chemotherapy Z79.899 Multiple myeloma C90.00 Multiple myeloma remission status: not in remission Pneumonia J18.9 Laterality: bilateral Lung location: unspecified part of lung Pneumonia type: due to unspecified organism NSTEMI (non-ST elevated myocardial infarction) I21.4 Transaminitis R74.0 Thrombocytopenia D69.6
--- NOTE | 2019-05-21 11:15 | PC.CHAP ---
Pastoral Care Encounter/Spiritual Assessment Type of Contact [] Declined city supervisor visit [] Patient/Family/Request visit [] Outpatient visit [] Follow-up visit [] Physician referral [] Code/Alert [x] Routine visit [] Staff referral [] Actively dying [] Patient sleeping [] Family support [] [] Out of room [] Palliative care [] [x] Receiving care in room [] Pre-surgical visit [] Trauma [] Long length of stay [] ICU visit [] Other: Relational/Emotional Strength [x] Patient feels connected with others/family/visitors/staff [] Distress [] Loneliness/isolation [] Abandonment Spirituality of Patient [x] Person of Lia [] Attends Protestant of their Lia [x] Believes in Prayer [] Reads Bible or Mu-Ism materials [] There are Spiritual issues to be addressed [employer] 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 [x] Prayer [x] Active listening [x] Non-anxious presence [x] Spiritual/emotional support [] Crisis/trauma care [x] Spiritual counseling [] Bereavement support [] Provided bereavement packet [] Provided Bible/devotional materials [] Provided toy/stuffed animal, coloring book to patient or family member [] Provided Communion [] Anointing/[place] [] Salvation [x] Completed spiritual assessment [] Other: Impact on Illness or Injury [] Angry [] Fearful [] Anxious [] Often cries [] Exhaustion [x] Unable to work [] Unable to attend congregational [] Unable to walk/stand [] Unable to read [x] Unable to drive [] Unable to eat/drink [] Unable to sleep [] Unable to be with family [] Patient intubated [] Other: Summary Had a heart Attack, had tests needs time to recover, feels good and is able to communicate Time spent with patient 10 mins
[2019-05-21 11:54] LABS: Glucose Point of Care 193 mg/dL (70-110)
[2019-05-21] MEDS: levoFLOXacin 750 mg Tablet PO (13:05)
[2019-05-21 16:57] LABS: Glucose Point of Care 303 mg/dL (70-110)
[2019-05-21 21:07] LABS: Glucose Point of Care 270 mg/dL (70-110)
[2019-05-22] VITALS (16 sets, daily range): BP systolic 146–162; BP diastolic 67–75; PULSE 81–93; RESP 14–22; TEMP 36.6–37.1; O2SAT 90–98
[2019-05-22] MEDS: ipratropium-albuterol 3 mL Neb INHALATION ×5 (03:19→20:38)
[2019-05-22 04:47] LABS: Basophils % 0.1 %; Eosinophils # 0.1 10^3/uL (0.0-0.8); Eosinophils % 0.6 %; Hematocrit 29.4 % (37.0-47.0); Hemoglobin 9.8 g/dL (11.5-15.3); Lymphocytes # 0.9 10^3/uL (0.8-4.8); Lymphocytes % 10.4 %; Mean Corpuscular HGB Conc 33.3 g/dL (30.0-36.0); Mean Corpuscular Hemoglobin 31.3 pg (28.0-34.0); Mean Corpuscular Volume 93.9 fL (81-99); Monocytes # 0.6 10^3/uL (0.2-0.9); Monocytes % 7.5 %; Neutrophils # 6.6 10^3/uL (1.8-7.7); Neutrophils % 79.3 %; Nucleated Red Blood Cells # 0.1 /100WBC; Nucleated Red Blood Cells % 0.6 %; Platelet Count 53 10^3/cmm (130-400); Red Blood Count 3.13 10^6/uL (4.1-5.3); Red Cell Distribution Width 15.6 % (12.1-15.1); White Blood Count 8.4 10^3/uL (4.0-10.0)
[2019-05-22 05:09] LABS: Blood Urea Nitrogen 62 mg/dL (8-23); Calcium 9.6 mg/dL (8.5-10.5); Carbon Dioxide 25 mmol/L (22-29); Chloride 109 mmol/L (98-107); Glucose 112 mg/dL (65-115); Osmolality Calculated 298 mOsm/kg (285-295); Sodium 144 mmol/L (136-145)
[2019-05-22 06:42] LABS: Glucose Point of Care 102 mg/dL (70-110)
[2019-05-22] MEDS: atorvastatin 40 mg Tablet 80 MG PO (08:07)
[2019-05-22] MEDS: levothyroxine 150 mcg Tablet PO (08:07)
[2019-05-22] MEDS: metoprolol tartrate 25 mg Tablet PO ×2 (08:07→17:51)
[2019-05-22] MEDS: predniSONE 20 mg Tablet 40 MG PO (08:07)
[2019-05-22] MEDS: isosorbide mononitrate ER 30 mg Tablet PO (08:07)
[2019-05-22] MEDS: amlodipine 5 mg Tablet PO (08:07)
[2019-05-22] MEDS: amoxicillin-clav 875-125 mg Tablet 1 TAB PO ×2 (08:07→17:51)
[2019-05-22] MEDS: pantoprazole DR 40 mg Tablet PO (08:07)
--- NOTE | 2019-05-22 10:31 | P.PN_ITS ---
Subjective Subjective: Interval history: Alta reports she feels like she is doing okay, but is weak. She reports she will need quite a bit of assistance but is still wanting to go home. When I talked with her daughter, she reported her weakness was significant enough she was worried about her going home and wanted consideration for intermediate. Medications: Reviewed: Yes Vitals/I&O/Wt Last Vital Signs Temp 97.7 F 05/21/19 19:00 Pulse 83 05/22/19 08:05 Resp 18 05/22/19 08:05 BP 155/67 05/22/19 07:00 Pulse Ox 98 05/22/19 08:05 05/21/19 05/22/19 05/22/19 22:59 06:59 14:59 Intake Total 540 / 780 1120 / 1900 Output Total 1600 / 1600 1225 / 1225 Balance -1060 / -820 1120 / 300 -1225 / -1225 Physical Exam Narrative: EXAM NARRATIVE: General exam is no apparent distress Cardiovascular regular rate and rhythm without murmur Lungs clear Abdomen soft, positive bowel sounds Extremities no cyanosis clubbing or edema Urinary Catheter Management^: Johnson: Cath Placed During This Visit: yes, but has since been removed by the nurse Reason for Continuing Indwelling Catheter: Accurate Measurement of Urinary Output in Critically Ill Patients Urinary Catheter Date of Insertion: 05/16/19 Urinary Catheter Time of Insertion: 14:50 Date Urinary Catheter Removed: 05/22/19 Time Urinary Catheter Discontinued: 10:16 Data : 05/22/19 03:25 05/22/19 03:25 Micro: Microbiology 05/16/19 13:22 Blood Culture - Final Blood NO GROWTH AFTER 5 DAYS 05/16/19 12:46 Blood Culture - Final Blood NO GROWTH AFTER 5 DAYS A&P Assessment and plan (1) Acute respiratory failure with hypoxia: Appears to be secondary to acute pulmonary edema with quick resolution. She appears improved. She was extubated Monday Secondary to concern of possible viral trigger or infection she is on Tamiflu, oral antibiotics Covid was negative Continue prednisone 40 mg a day. This will be tapered. There was a concern of reaction to chemotherapy. At this point she has had over 5 days of Tamiflu, will discontinue. Status: Acute Code(s): J96.01 - Acute respiratory failure with hypoxia (2) Acute tubular necrosis: Creatinine continues to improve. Status: Acute Code(s): N17.0 - Acute kidney failure with tubular necrosis (3) Metabolic acidosis: Resolved Status: Acute Code(s): E87.2 - Acidosis (4) Sepsis: Blood cultures unremarkable. 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 Status: Acute Qualifiers: Laterality: bilateral Lung location: unspecified part of lung Pneumonia type: due to unspecified organism Qualified Code(s): J18.9 - Pneu monia, unspecified organism Code(s): J18.9 - Pneumonia, unspecified organism (8) NSTEMI (non-ST elevated myocardial infarction): Cardiology has been consulted. For now medical management considering severe thrombocytopenia. At this point secondary to worsening platelets, all antiplatelets have been held. Continue beta-jeff, statin, nitrate Echocardiogram demonstrated preserved EF Status: Acute Code(s): I21.4 - Non-ST elevation (NSTEMI) myocardial infarction (9) Transaminitis: Improving Status: Acute Code(s): R74.0 - Nonspecific elevation of levels of transaminase and lactic acid dehydrogenase [LDH] (10) Thrombocytopenia: Holding all antiplatelets and anticoagulants. This is now improving Status: Acute Code(s): D69.6 - Thrombocytopenia, unspecified Additional A&P Information SCDs for DVT prophylaxis Continue physical therapy, occupational therapy secondary to significant weakness Daughter requests evaluation for possible intermediate facility placement. No need for laboratory tomorrow Wean oxygen as tolerated Attestations Medical Necessity Statement*: Needs continued hospitalization for close follow-up of weakness, pneumonia pending placement Coding Level of Care Code Acute Hospice Music Therapy for Chg Fwd Diagnoses Acute respiratory failure with hypoxia J96.01 Acute tubular necrosis N17.0 Metabolic acidosis E87.2 Sepsis A41.9; R65.20; J96.01 Acute respiratory failure type: with hypoxia Sepsis acute organ dysfunction status: with acute organ dysfunction Sepsis type: sepsis due to unspecified organism Severe sepsis acute organ dysfunction type: acute respiratory failure Severe sepsis shock status: without septic shock Immunosuppressed due to chemotherapy Z79.899 Multiple myeloma C90.00 Multiple myeloma remission status: not in remission Pneumonia J18.9 Laterality: bilateral Lung location: unspecified part of lung Pneumonia type: due to unspecified organism NSTEMI (non-ST elevated myocardial infarction) I21.4 Transaminitis R74.0 Thrombocytopenia D69.6
[2019-05-22 11:33] LABS: Glucose Point of Care 163 mg/dL (70-110)
[2019-05-22 16:35] LABS: Glucose Point of Care 292 mg/dL (70-110)
[2019-05-22 20:23] LABS: Glucose Point of Care 191 mg/dL (70-110)
[2019-05-23] VITALS (13 sets, daily range): BP systolic 133–150; BP diastolic 66–73; PULSE 81–94; RESP 12–20; TEMP 36.6–36.8; O2SAT 90–995
[2019-05-23] MEDS: ipratropium-albuterol 3 mL Neb INHALATION ×5 (00:57→20:39)
[2019-05-23 07:23] LABS: Glucose Point of Care 102 mg/dL (70-110)
[2019-05-23] MEDS: atorvastatin 40 mg Tablet 80 MG PO (08:48)
[2019-05-23] MEDS: amoxicillin-clav 875-125 mg Tablet 1 TAB PO (08:48)
[2019-05-23] MEDS: metoprolol tartrate 25 mg Tablet PO ×2 (08:49→18:14)
[2019-05-23] MEDS: isosorbide mononitrate ER 30 mg Tablet PO (08:49)
[2019-05-23] MEDS: pantoprazole DR 40 mg Tablet PO (08:49)
[2019-05-23] MEDS: amlodipine 5 mg Tablet PO (08:49)
[2019-05-23] MEDS: predniSONE 20 mg Tablet 40 MG PO (08:49)
[2019-05-23] MEDS: levothyroxine 150 mcg Tablet PO (08:49)
--- NOTE | 2019-05-23 09:08 | PC.SOCIAL ---
IMM Updated Updated pt on Pg 2 IMM. No questions voiced. Provided pt a copy & left on their bedside table. Signed, dated, & timed copy in chart.
[2019-05-23 11:52] LABS: Glucose Point of Care 174 mg/dL (70-110)
[2019-05-23] MEDS: levoFLOXacin 750 mg Tablet PO (12:39)
--- NOTE | 2019-05-23 14:22 | PM.PN ---
Subjective Subjective: Interval history: Alta reports that she is feeling much better. She is less short of breath. She is still weak but trying to work with physical therapy. No chest discomfort. Medications: Reviewed: Yes Vitals/I&O/Wt Last Vital Signs Temp 98.3 F 05/23/19 11:30 Pulse 86 05/23/19 14:14 Resp 17 05/23/19 14:14 BP 140/72 05/23/19 11:30 Pulse Ox 94 05/23/19 14:14 05/22/19 05/23/19 05/23/19 22:59 06:59 14:59 Intake Total 340 / 700 100 / 800 860 / 860 Output Total 901 / 2326 450 / 2776 400 / 400 Balance -561 / -1626 -350 / -1976 460 / 460 Physical Exam Narrative: EXAM NARRATIVE: General exam is no apparent distress Cardiovascular regular rate and rhythm without murmur Lungs clear Abdomen soft, positive bowel sounds Extremities no cyanosis clubbing or edema Urinary Catheter Management^: Johnson: Cath Placed During This Visit: yes, but has since been removed by the nurse Reason for Continuing Indwelling Catheter: Decision to DC Catheter Urinary Catheter Date of Insertion: 05/16/19 Urinary Catheter Time of Insertion: 14:50 Date Urinary Catheter Removed: 05/22/19 Time Urinary Catheter Discontinued: 10:16 Data : 05/22/19 03:25 05/22/19 03:25 A&P Assessment and plan (1) Acute respiratory failure with hypoxia: Appears to be secondary to acute pulmonary edema with quick resolution. She appears improved. She was extubated Monday Secondary to concern of possible viral trigger or infection she is on oral antibiotics. Augmentin can be discontinued at this point, and will continue Levaquin alone Covid was negative Continue prednisone 40 mg a day. This will be tapered. There was a concern of reaction to chemotherapy. She is completed her course of Tamiflu and this was discontinued Status: Acute Code(s): J96.01 - Acute respiratory failure with hypoxia (2) Acute tubular necrosis: Creatinine continues to improve. Status: Acute Code(s): N17.0 - Acute kidney failure with tubular necrosis (3) Metabolic acidosis: Resolved Status: Acute Code(s): E87.2 - Acidosis (4) Sepsis: Blood cultures unremarkable. 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 She will receive 3 more days treatment. She is already completed 7 days of Augmentin r Sputum culture showed group A strep Status: Acute Qualifiers: Laterality: bilateral Lung location: unspecified part of lung Pneumonia type: due to unspecified organism Qualified Code(s): J18.9 - Pneumonia, unspecified organism Code(s): J18.9 - Pneumonia, unspecified organism (8) NSTEMI (non-ST elevated myocardial infarction): Cardiology has been consulted. For now medical management considering severe thrombocytopenia. At this point secondary to worsening platelets, all antiplatelets have been held. Continue beta-jeff, statin, nitrate Echocardiogram demonstrated preserved EF Status: Acute Code(s): I21.4 - Non-ST elevation (NSTEMI) myocardial infarction (9) Transaminitis: Improving Status: Acute Code(s): R74.0 - Nonspecific elevation of levels of transaminase and lactic acid dehydrogenase [LDH] (10) Thrombocytopenia: Holding all antiplatelets and anticoagulants. This is now improving. Repeat tomorrow Status: Acute Code(s): D69.6 - Thrombocytopenia, unspecified Additional A&P Information SCDs for DVT prophylaxis Continue physical therapy, occupational therapy secondary to significant weakness Daughter requests evaluation for possible prison facility placement. No need for laboratory tomorrow Wean oxygen as tolerated Attestations Medical Necessity Statement*: Needs continued hospital stay for close monitoring secondary to respiratory failure requiring oxygen, pulmonary toilet pending discharge to prison facility. 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 Diagnoses Acute respiratory failure with hypoxia J96.01 Acute tubular necrosis N17.0 Metabolic acidosis E87.2 Sepsis A41.9; R65.20; J96.01 Acute respiratory failure type: with hypoxia Sepsis acute organ dysfunction status: with acute organ dysfunction Sepsis type: sepsis due to unspecified organism Severe sepsis acute organ dysfunction type: acute respiratory failure Severe sepsis shock status: without septic shock Immunosuppressed due to chemotherapy Z79.899 Multiple myeloma C90.00 Multiple myeloma remission status: not in remission Pneumonia J18.9 Laterality: bilateral Lung location: unspecified part of lung Pneumonia type: due to unspecified organism NSTEMI (non-ST elevated myocardial infarction) I21.4 Transaminitis R74.0 Thrombocytopenia D69.6
[2019-05-23 16:35] LABS: Glucose Point of Care 244 mg/dL (70-110)
--- NOTE | 2019-05-23 18:39 | PM.PN ---
Subjective Subjective: Interval history: Patient denies any specific symptoms. No chest pain or unusual shortness of breath. Has been ambulating on telemetry with assistance. No new complaints. Telemetry shows sinus rhythm with occasional PACs. Medications: Reviewed: Yes Medication Review Details: Current Medications Albuterol/Ipratropium (Duoneb) 3 ml INHALATION Q4H.RESPIRATORY [facility] [place] Last Admin: 05/21/19 08:11 Dose: 3 ml Documented by: Amlodipine Besylate (Norvasc) 5 mg PO DAILY [facility] [place] Last Admin: 05/20/19 08:26 Dose: 5 mg Documented by: Amoxicillin/Clavulanate Potassium (Augmentin 875-125 Mg) 1 tab PO BID [facility] [place]; Protocol Last Admin: 05/20/19 17:33 Dose: 1 tab Documented by: Atorvastatin Calcium (Lipitor) 80 mg PO DAILY [facility] [place] Last Admin: 05/20/19 08:26 Dose: 80 mg Documented by: Dextrose (D50w) 25 ml IVP ONCE PRN; Protocol PRN Reason: hypoglycemia protocol Dextrose (D50w) 50 ml IVP PRN PRN; Protocol PRN Reason: hypoglycemia protocol Glucagon (Glucagen) 1 mg IM ONCE PRN; Protocol PRN Reason: Adult Acute Hypoglycemia Prot. Dextrose (D5w) 500 mls @ 100 mls/hr IV ONCE PRN; Protocol PRN Reason: Adult Acute Hypoglycemia Prot Insulin Aspart (Novolog) 0 unit SUBCUT TIDWM [facility] [place]; Protocol Last Admin: 05/21/19 06:59 Dose: Not Given Documented by: Isosorbide Mononitrate (Imdur) 30 mg PO DAILY [facility] [place] Last Admin: 05/20/19 08:25 Dose: 30 mg Documented by: Lanolin (Lanolin Oint) 1 applic TOPICAL PRN PRN PRN Reason: DRYNESS Levofloxacin (Levaquin) 750 mg PO Q48H [facility] [place]; Protocol Last Admin: 05/19/19 13:08 Dose: 750 mg Documented by: Levothyroxine Sodium (Synthroid) 150 mcg PO DAILY [facility] [place] Last Admin: 05/20/19 08:26 Dose: 150 mcg Documented by: Metoprolol Tartrate (Lopressor) 25 mg PO BID [facility] [place] Last Admin: 05/20/19 17:33 Dose: 25 mg Documented by: Oseltamivir Phosphate (Tamiflu Oral Susp) 30 mg PO QID [facility] [place] Last Admin: 05/20/19 21:42 Dose: 30 mg Documented by: Pantoprazole Sodium (Protonix) 40 mg PO DAILY [facility] [place] Last Admin: 05/20/19 08:25 Dose: 40 mg Documented by: Prednisone (Prednisone) 40 mg PO DAILY [facility] [place] Last Admin: 05/20/19 08:25 Dose: 40 mg Documented by: Vitals/I&O/Wt Last Vital Signs Temp 98.1 F 05/23/19 15:16 Pulse 81 05/23/19 17:40 Resp 15 05/23/19 17:40 BP 133/66 05/23/19 15:16 Pulse Ox 96 05/23/19 17:40 05/23/19 05/23/19 05/23/19 06:59 14:59 22:59 Intake Total 100 / 800 860 / 860 360 / 1220 Output Total 450 / 2776 400 / 400 Balance -350 / -1976 460 / 460 360 / 820 Physical Exam Narrative: EXAM NARRATIVE: GENERAL: The patient is alert and oriented times three. Not in any acute distress. Minimal pallor HEENT: No significant pallor or icterus. No lymphadenopathy. There are no mucous membrane lesions. NECK: Trachea appears to be central. No masses noted. No JVD or thyromegaly appreciated. No carotid bruit. RESPIRATORY: Chest is symmetrical. No intercostals muscle retraction or any accessory muscle activation. There is no chest wall tenderness. Breath sounds are heard bilaterally. No rales or rhonchi heard. No evidence of any consolidation. Breath sounds are diminished at the bases BREASTS: Deferred. HEART: The PMI could not be palpated. No palpable precordial events. S1 and S2 are normal. No S3 or S4 heard. No pericardial rub or any click heard. Short systolic murmur in the left sternal border. No diastolic murmurs. ABDOMEN: No vessel pulsations or distention. No tenderness. No organomegaly appreciated. No abdominal bruit. Bowel sounds are normally heard. : Deferred. RECTAL: Deferred. LYMPHATIC: No lymphadenopathy noted in the neck. EXTREMITIES: No edema or cyanosis. No clubbing. The pulses are symmetrical bilaterally. The radial, femoral, dorsalis pedis and the posterior tibial pulses are palpated and found to be relatively of low volume and amplitude MUSCULOSKELETAL: No acute joint deformities or swelling SKIN: There are no significant scars or skin rash noted. NEUROPSYCHIATRIC: The patient is alert and oriented x3. Appears to be in a good mood. No focal motor deficits. Urinary Catheter Management^: Johnson: Cath Placed During This Visit: yes, but has since been removed by the nurse Reason for Continuing Indwelling Catheter: Decision to DC Catheter Urinary Catheter Date of Insertion: 05/16/19 Urinary Catheter Time of Insertion: 14:50 Date Urinary Catheter Removed: 05/22/19 Time Urinary Catheter Discontinued: 10:16 Data : 05/22/19 03:25 05/22/19 03:25 A&P Assessment and plan (1) NSTEMI (non-ST elevated myocardial infarction): Patient is a clinical features are consistent with an acute non-ST elevation myocardial infarction. She has persistent T wave changes in the anterolateral leads. Her LV ejection fraction is normal by echocardiogram. Hemodynamically she seems to be stable. Continue to be thrombocytopenic. May continue on the current medications. Status: Acute Code(s): I21.4 - Non-ST elevation (NSTEMI) myocardial infarction (2) Acute diastolic heart failure: Heart failure seems to be treated at this time. She has no evidence of any significant LV dysfunction. Most likely this is ischemia related. Her LV ejection fraction is within normal limits by the echocardiogram. There is no evidence of any chemotherapy-induced cardiomyopathy. Status: Acute Code(s): I50.31 - Acute diastolic (congestive) heart failure (3) Acute respiratory failure with hypoxia: Status post extubation. Has significant improvement. Status: Acute Code(s): J96.01 - Acute respiratory failure with hypoxia (4) Thrombocytopenia: The platelet count seems to be slowly improving. No evidence of spontaneous bleed Status: Acute Code(s): D69.6 - Thrombocytopenia, unspecified (5) Multiple myeloma: Management as per the oncology service Status: Acute Qualifiers: Multiple myeloma remission status: not in remission Qualified Code(s): C90.00 - Multiple myeloma not having achieved remission Code(s): C90.00 - Multiple myeloma not having achieved remission (6) Acute kidney injury: BUN/creatinine seems to be improving. Status: Acute Code(s): N17.9 - Acute kidney failure, unspecified (7) Benign essential hypertension with target blood pressure below 140/90: Currently the blood pressure is under control. Status: Acute Code(s): I10 - Essential (primary) hypertension Additional A&P Information Other problems are Possible pneumonia, improving Type 2 diabetes-blood sugar seems to be improving Elevated liver enzymes-needs a follow-up evaluation Hypothyroidism, clinically euthyroid In view of the patient's multiple comorbidities, it might be appropriate at this time to continue the medical treatment. She may require a cardiac catheterization, to further evaluate the coronary status. Since she seems to be stable with no chest pain or any hemodynamic compromise, it would be appropriate to hold off on this for the time being. Attestations Medical Necessity Statement*: Disposition as per the primary Coding Level of Care Code Acute [employer]er Of Cur[employer] for [facility] Fwd Diagnoses NSTEMI (non-ST elevated myocardial infarction) I21.4 Acute diastolic heart failure I50.31 Acute respiratory failure with hypoxia J96.01 Thrombocytopenia D69.6 Multiple myeloma C90.00 Multiple myeloma remission status: not in remission Acute kidney injury N17.9 Benign essential hypertension with target blood pressure below 140/90 I10
[2019-05-23 20:51] LABS: Glucose Point of Care 133 mg/dL (70-110)
--- NOTE | 2019-05-23 21:48 | PC.NURSE ---
patients LS were clear/diminished, patient states no pain or sob. patient on room air.
[2019-05-24] VITALS (7 sets, daily range): BP systolic 117–157; BP diastolic 63–92; PULSE 78–92; RESP 13–18; TEMP 36.6–37.1; O2SAT 90–96
[2019-05-24 05:12] LABS: Eosinophils # 0.1 10^3/uL (0.0-0.8); Eosinophils % 1.4 %; Hematocrit 29.5 % (37.0-47.0); Hemoglobin 9.3 g/dL (11.5-15.3); Mean Corpuscular HGB Conc 31.5 g/dL (30.0-36.0); Mean Corpuscular Hemoglobin 29.9 pg (28.0-34.0); Mean Corpuscular Volume 94.9 fL (81-99); Mean Platelet Volume 12.8 fL (7.4-10.4); Monocytes # 0.7 10^3/uL (0.2-0.9); Monocytes % 8.1 %; Neutrophils # 6.5 10^3/uL (1.8-7.7); Neutrophils % 77.6 %; Nucleated Red Blood Cells % 0.4 %; Platelet Count 93 10^3/cmm (130-400); Red Blood Count 3.11 10^6/uL (4.1-5.3); White Blood Count 8.4 10^3/uL (4.0-10.0)
[2019-05-24 05:37] LABS: Anion Gap 16.1 (5-19); Blood Urea Nitrogen 37 mg/dL (8-23); Carbon Dioxide 26 mmol/L (22-29); Chloride 104 mmol/L (98-107); Glucose 101 mg/dL (65-115); Osmolality Calculated 292 mOsm/kg (285-295); Potassium 4.1 mmol/L (3.5-5.1); Sodium 142 mmol/L (136-145)
[2019-05-24 06:15] LABS: Glucose Point of Care 96 mg/dL (70-110)
[2019-05-24] MEDS: levothyroxine 150 mcg Tablet PO (08:53)
[2019-05-24] MEDS: pantoprazole DR 40 mg Tablet PO (08:53)
[2019-05-24] MEDS: predniSONE 20 mg Tablet 40 MG PO (08:53)
[2019-05-24] MEDS: isosorbide mononitrate ER 30 mg Tablet PO (08:54)
[2019-05-24] MEDS: atorvastatin 40 mg Tablet 80 MG PO (08:54)
[2019-05-24] MEDS: amlodipine 5 mg Tablet PO (08:54)
[2019-05-24] MEDS: metoprolol tartrate 25 mg Tablet PO ×2 (08:54→17:23)
--- NOTE | 2019-05-24 09:33 | PC.CHAP ---
Pastoral Care Encounter/Spiritual Assessment Type of Contact [] Declined television picture tube rebuilder visit [] Patient/Family/Request visit [] Outpatient visit [] Follow-up visit [] Physician referral [] Code/Alert [x] Routine visit [] Staff referral [] Actively dying [] Patient sleeping [] Family support [] [] Out of room [] Palliative care [] [] Receiving care in room [] Pre-surgical visit [] Trauma [x] Long length of stay [] ICU visit [] Other: Relational/Emotional Strength [] Patient feels connected with others/family/visitors/staff [] Distress [] Loneliness/isolation [] Abandonment Spirituality of Patient [x] Person of Lia [] Attends Taoism of their Lia [x] Believes in Prayer [] Reads Bible or Taoism materials [] There are Spiritual issues to be addressed 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 [x] Prayer [] Active listening [] Non-anxious presence [] Spiritual/emotional support [] Crisis/trauma care [] Spiritual counseling [] Bereavement support [] Provided bereavement packet [] Provided Bible/devotional materials [] Provided toy/stuffed animal, coloring book to patient or family member [] Provided Communion [] Anointing/[place] [] Salvation [x] Completed spiritual assessment [] Other: Impact on Illness or Injury [] Angry [] Fearful [] Anxious [] Often cries [] Exhaustion [] Unable to work [] Unable to attend episcopalian [] Unable to walk/stand [] Unable to read [] Unable to drive [] Unable to eat/drink [] Unable to sleep [] Unable to be with family [] Patient intubated [] Other: Summary Patient feeling stronger Time spent with patient 15min
--- NOTE | 2019-05-24 10:48 | P.PN_ITS ---
Subjective Subjective: Interval history: Alta reports she feels a little dizzy headed and weak today but otherwise doing okay. Asked for me to review the hospital course as she cannot remember what happened initially. Medications: Reviewed: Yes Vitals/I&O/Wt Last Vital Signs Temp 97.9 F 05/24/19 04:00 Pulse 84 05/24/19 09:07 Resp 16 05/24/19 09:07 BP 157/74 05/24/19 04:00 Pulse Ox 95 05/24/19 09:07 05/23/19 05/24/19 05/24/19 22:59 06:59 14:59 Intake Total 360 / 1220 100 / 1320 480 / 480 Output Total 450 / 850 250 / 1100 Balance -90 / 370 -150 / 220 480 / 480 Physical Exam Narrative: EXAM NARRATIVE: General exam is no apparent distress Cardiovascular regular rate and rhythm without murmur Lungs clear Abdomen soft, positive bowel sounds Extremities no cyanosis clubbing or edema Urinary Catheter Management^: Johnson: Cath Placed During This Visit: yes, but has since been removed by the nurse Reason for Continuing Indwelling Catheter: Decision to DC Catheter Urinary Catheter Date of Insertion: 05/16/19 Urinary Catheter Time of Insertion: 14:50 Date Urinary Catheter Removed: 05/22/19 Time Urinary Catheter Discontinued: 10:16 Data : 05/24/19 04:26 05/24/19 04:26 A&P Assessment and plan (1) Acute respiratory failure with hypoxia: Appears to be secondary to acute pulmonary edema with quick resolution. She appears improved. She was extubated Monday Secondary to concern of possible viral trigger or infection she is on oral antibiotics. Currently finishing a course of oral Levaquin Covid was negative Decrease prednisone to 30 mg daily. This will be tapered. There was a concern of reaction to chemotherapy. She is completed her course of Tamiflu and this was discontinued Status: Acute Code(s): J96.01 - Acute respiratory failure with hypoxia (2) Acute tubular necrosis: Creatinine continues to improve. Status: Acute Code(s): N17.0 - Acute kidney failure with tubular necrosis (3) Metabolic acidosis: Resolved Status: Acute Code(s): E87.2 - Acidosis (4) Sepsis: Blood cultures unremarkable. Currently continue Levaquin Status: Acute Qualifiers: Acute respiratory failure type: with hypoxia Sepsis acute organ dysfunction status: with acute organ dysfunction Sepsis type: sepsis due to u nspecified organism Severe sepsis acute organ dysfunction type: acute resp iratory failure Severe sepsis shock status: without septic shock Qualified Code(s): A41.9 - Sepsis, unspecified organism; R65.20 - Severe sepsis without septic shock; J96.01 - Acute respiratory failure with hypoxia Code(s): A41.9 - Sepsis, unspecified organism (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: Status: Acute Code(s): Z79.899 - Other terminal supervisor (current) drug therapy (6) Multiple myeloma: Status: Acute Qualifiers: Multiple myeloma remission status: not in remission Qualified Code(s): C90.00 - Multiple myeloma not having achieved remission Code(s): C90.00 - Multiple myeloma not having achieved remission (7) Pneumonia: Currently on Levaquin. She will receive 2 more days treatment. She is already completed 7 days of Augmentin which has been discontinued Sputum culture showed group A strep Status: Acute Qualifiers: Laterality: bilateral Lung location: unspecified part of lung Pneumonia type: due to unspecified organism Qualified Code(s): J18.9 - Pneumonia, unspecified organism Code(s): J18.9 - Pneumonia, unspecified organism (8) NSTEMI (non-ST elevated myocardial infarction): Cardiology has been consulted. For now medical management considering severe thrombocytopenia. At this point secondary to worsening platelets, all antiplatelets have been held. Continue beta-jeff, statin, nitrate Echocardiogram demonstrated preserved EF Status: Acute Code(s): I21.4 - Non-ST elevation (NSTEMI) myocardial infarction (9) Transaminitis: Improving Status: Acute Code(s): R74.0 - Nonspecific elevation of levels of transaminase and lactic acid dehydrogenase [LDH] (10) Thrombocytopenia: Holding all antiplatelets and anticoagulants. Significantly improved. Add aspirin 81 mg Status: Acute Code(s): D69.6 - Thrombocytopenia, unspecified Additional A&P Information Hypertension. Increase Norvasc SCDs for DVT prophylaxis Continue physical therapy, occupational therapy secondary to significant weak ness Daughter requests evaluation for possible detention facility placement. No need for laboratory tomorrow Attestations Medical Necessity Statement*: Awaiting detention facility placement Coding Level of Care Code Acute Medical Billing Assistant for g Fwd Diagnoses Acute respiratory failure with hypoxia J96.01 Acute tubular necrosis N17.0 Metabolic acidosis E87.2 Sepsis A41.9; R65.20; J96.01 Acute respiratory failure type: with hypoxia Sepsis acute organ dysfunction status: with acute organ dysfunction Sepsis type: sepsis due to unspecified organism Severe sepsis acute organ dysfunction type: acute respiratory failure Severe sepsis shock status: without septic shock Immunosuppressed due to chemotherapy Z79.899 Multiple myeloma C90.00 Multiple myeloma remission status: not in remission Pneumonia J18.9 Laterality: bilateral Lung location: unspecified part of lung Pneumonia type: due to unspecified organism NSTEMI (non-ST elevated myocardial infarction) I21.4 Transaminitis R74.0 Thrombocytopenia D69.6
--- NOTE | 2019-05-24 11:03 | PM.PN ---
Subjective Subjective: Interval history: Patient continues to feel okay with no specific symptoms. Denies any chest pain or palpitation. No fever or chills. No other specific complaints. Medications: Reviewed: Yes Medication Review Details: Current Medications Albuterol Sulfate (Albuterol) 2.5 mg INHALATION Q6H.RESPIRATORY PRN PRN Reason: SHORTNESS OF BREATH Albuterol/Ipratropium (Duoneb) 3 ml INHALATION Q6H.RESPIRATORY [facility] Last Admin: 05/24/19 09:07 Dose: Not Given Documented by: Amlodipine Besylate (Norvasc) 10 mg PO DAILY [facility] Aspirin (Aspirin Ec) 81 mg PO DAILY [facility] Atorvastatin Calcium (Lipitor) 80 mg PO DAILY [facility] Last Admin: 05/24/19 08:54 Dose: 80 mg Documented by: Dextrose (D50w) 25 ml IVP ONCE PRN; Protocol PRN Reason: hypoglycemia protocol Dextrose (D50w) 50 ml IVP PRN PRN; Protocol PRN Reason: hypoglycemia protocol Glucagon (Glucagen) 1 mg IM ONCE PRN; Protocol PRN Reason: Adult Acute Hypoglycemia Prot. Dextrose (D5w) 500 mls @ 100 mls/hr IV ONCE PRN; Protocol PRN Reason: Adult Acute Hypoglycemia Prot Insulin Aspart (Novolog) 0 unit SUBCUT TIDWM [facility]; Protocol Last Admin: 05/24/19 07:02 Dose: Not Given Documented by: Isosorbide Mononitrate (Imdur) 30 mg PO DAILY [facility] Last Admin: 05/24/19 08:54 Dose: 30 mg Documented by: Lanolin (Lanolin Oint) 1 applic TOPICAL PRN PRN PRN Reason: DRYNESS Levofloxacin (Levaquin) 750 mg PO Q48H [facility]; Protocol Last Admin: 05/23/19 12:39 Dose: 750 mg Documented by: Levothyroxine Sodium (Synthroid) 150 mcg PO DAILY [facility] Last Admin: 05/24/19 08:53 Dose: 150 mcg Documented by: Metoprolol Tartrate (Lopressor) 25 mg PO BID [facility] Last Admin: 05/24/19 08:54 Dose: 25 mg Documented by: Pantoprazole Sodium (Protonix) 40 mg PO DAILY [facility] Last Admin: 05/24/19 08:53 Dose: 40 mg Documented by: Prednisone (Prednisone) 20 mg PO DAILY [facility] Prednisone (Prednisone) 10 mg PO DAILY SAÚL Vitals/I&O/Wt Last Vital Signs Temp 97.9 F 05/24/19 04:00 Pulse 84 05/24/19 09:07 Resp 16 05/24/19 09:07 BP 157/74 05/24/19 04:00 Pulse Ox 95 05/24/19 09:07 05/23/19 05/24/19 05/24/19 22:59 06:59 14:59 Intake Total 360 / 1220 100 / 1320 480 / 480 Output Total 450 / 850 250 / 1100 Balance -90 / 370 -150 / 220 480 / 480 Physical Exam Narrative: EXAM NARRATIVE: GENERAL: The patient is alert and oriented times three. Not in any acute distress. Minimal pallor HEENT: No significant pallor or icterus. No lymphadenopathy. There are no mucous membrane lesions. NECK: Trachea appears to be central. No masses noted. No JVD or thyromegaly appreciated. No carotid bruit. RESPIRATORY: Breath sounds are heard bilaterally with no rales or rhonchi BREASTS: Deferred. HEART: The PMI could not be palpated. No palpable precordial events. S1 and S2 are normal. No S3 or S4 heard. No pericardial rub or any click heard. Short systolic murmur in the left sternal border. No diastolic murmurs. ABDOMEN: No vessel pulsations or distention. No tenderness. No organomegaly appreciated. No abdominal bruit. Bowel sounds are normally heard. : Deferred. RECTAL: Deferred. LYMPHATIC: No lymphadenopathy noted in the neck. EXTREMITIES: No edema or cyanosis. MUSCULOSKELETAL: No acute joint deformities or swelling SKIN: There are no significant scars or skin rash noted. NEUROPSYCHIATRIC: The patient is alert and oriented x3. Appears to be in a good mood. No focal motor deficits. Urinary Catheter Management^: Johnson: Cath Placed During This Visit: yes, but has since been removed by the nurse Reason for Continuing Indwelling Catheter: Decision to DC Catheter Urinary Catheter Date of Insertion: 05/16/19 Urinary Catheter Time of Insertion: 14:50 Date Urinary Catheter Removed: 05/22/19 Time Urinary Catheter Discontinued: 10:16 Data : 05/24/19 04:26 05/24/19 04:26 A&P Assessment and plan (1) NSTEMI (non-ST elevated myocardial infarction): Patient is a clinical features are consistent with an acute non-ST elevation myocardial infarction. She has persistent T wave changes in the anterolateral leads. Her LV ejection fraction is normal by echocardiogram. Hemodynamically she seems to be stable. Her BUN and creatinine also is improving. Since she seems to be stable with no specific cardiac symptoms, it may be appropriate to continue on the current medical treatment. May consider further cardiac work-up as an outpatient Status: Acute Code(s): I21.4 - Non-ST elevation (NSTEMI) myocardial infarction (2) Acute diastolic heart failure: Heart failure seems to be treated at this time. She has no evidence of any significant LV dysfunction. Most likely this is ischemia related. Her LV ejection fraction is within normal limits by the echocardiogram. There is no evidence of any chemotherapy-induced cardiomyopathy. Status: Acute Code(s): I50.31 - Acute diastolic (congestive) heart failure (3) Acute respiratory failure with hypoxia: Patient's respiratory status is significantly improved. Her oxygenation has improved. The PO2 is 95% on room air. Status: Acute Code(s): J96.01 - Acute respiratory failure with hypoxia (4) Thrombocytopenia: The platelet count continues to improve Status: Acute Code(s): D69.6 - Thrombocytopenia, unspecified (5) Multiple myeloma: Management as per the oncology service Status: Acute Qualifiers: Multiple myeloma remission status: not in remission Qualified Code(s): C90.00 - Multiple myeloma not having achieved remission Code(s): C90.00 - Multiple myeloma not having achieved remission (6) Acute kidney injury: BUN/creatinine seems continues to improve Status: Acute Code(s): N17.9 - Acute kidney failure, unspecified (7) Benign essential hypertension with target blood pressure below 140/90: Currently the blood pressure is under control. Status: Acute Code(s): I10 - Essential (primary) hypertension Additional A&P Information Other problems are Possible pneumonia, improving Type 2 diabetes-blood sugar seems to be improving Elevated liver enzymes-needs a follow-up evaluation Hypothyroidism, clinically euthyroid Since the patient's overall cardiovascular status seems to be stable, I may sign off at this point. We will see her in the office in 3 weeks. May consider cardiac authorization as an outpatient, if she has recurrence of chest pain or other cardiac symptoms. Please feel free to contact me with any further questions. Discussed with Dr. Lee Attestations Medical Necessity Statement*: Disposition as per the primary Coding Level of Care Code Acute Bobbin Hauler for g Fwd Diagnoses NSTEMI (non-ST elevated myocardial infarction) I21.4 Acute diastolic heart failure I50.31 Acute respiratory failure with hypoxia J96.01 Thrombocytopenia D69.6 Multiple myeloma C90.00 Multiple myeloma remission status: not in remission Acute kidney injury N17.9 Benign essential hypertension with target blood pressure below 140/90 I10
[2019-05-24 11:17] LABS: Glucose Point of Care 120 mg/dL (70-110)
[2019-05-24 16:46] LABS: Glucose Point of Care 201 mg/dL (70-110)
[2019-05-24 21:06] LABS: Glucose Point of Care 203 mg/dL (70-110)
[2019-05-25] VITALS: BP 146/79; PULSE 99; RESP 26; TEMP 528.3; TEMP 983; O2SAT 90
[2019-05-25 04:00] VITALS: BP 141/75; PULSE 82; RESP 20; TEMP 36.7; O2SAT 90
[2019-05-25 06:42] LABS: Glucose Point of Care 85 mg/dL (70-110)
[2019-05-25 07:31] VITALS: PULSE 78; RESP 16; O2SAT 96
[2019-05-25] MEDS: aspirin 81 mg EC Tablet PO (08:55)
[2019-05-25] MEDS: levothyroxine 150 mcg Tablet PO (08:55)
[2019-05-25] MEDS: predniSONE 20 mg Tablet PO (08:56)
[2019-05-25] MEDS: pantoprazole DR 40 mg Tablet PO (08:56)
[2019-05-25] MEDS: atorvastatin 40 mg Tablet 80 MG PO (08:56)
[2019-05-25] MEDS: predniSONE 10 mg Tablet PO (08:56)
[2019-05-25] MEDS: metoprolol tartrate 25 mg Tablet PO (08:56)
[2019-05-25] MEDS: amlodipine 10 mg Tablet PO (08:57)
[2019-05-25] MEDS: isosorbide mononitrate ER 30 mg Tablet PO (08:57)
--- NOTE | 2019-05-25 09:15 | PC.SOCIAL ---
IMM Updated Page 2 of IMM updated and given to patient. Initialed, dated, and timed and placed back in chart.
[2019-05-25 09:52] VITALS: BP 123/53; PULSE 89; RESP 17; O2SAT 93
[2019-05-25 11:18] LABS: Glucose Point of Care 122 mg/dL (70-110)
--- NOTE | 2019-05-25 12:17 | P.DS_ITS ---
Discharge Providers Date of Admission: 05/16/19 15:22 Date of Discharge: May 25, 2019 Attending Provider at Admission: Otto Gilbert MD Attending Provider at Discharge: Silvino Lee MD Primary Care Provider: Saul Nieto Jr, MD Diagnoses at Discharge Discharge Diagnosis (1) NSTEMI (non-ST elevated myocardial infarction): Status: Acute Problem details: Evaluated by cardiology. Medical management currently. We will follow-up with cardiology in clinic (2) Acute diastolic heart failure: Status: Acute Problem details: Compensated currently (3) Acute respiratory failure with hypoxia: Status: Acute Problem details: Resolved. (4) Thrombocytopenia: Status: Acute Problem details: Resolving (5) Multiple myeloma: Status: Acute Problem details: Concern of possible pulmonary reaction to chemotherapy. Required endotracheal intubation and mechanical ventilation. Currently recovering Qualifiers: Multiple myeloma remission status: not in remission Qualified Code(s): C90.00 - Multiple myeloma not having achieved remission (6) Acute kidney injury: Status: Acute Problem details: Resolving (7) Benign essential hypertension with target blood pressure below 140/90: Status: Acute Problem details: Improved Reason for Visit Reason for Visit: Reason For Visit: SOB pos reaction to chemo Hospital Course Hospital Course: Alta is an 83-year-old white female who presented to the hospital with shortness of breath after receiving chemotherapy. There was significant concern for ARDS, as well as pulmonary edema. She required endotracheal intubation, and ventilation. Renal failure was also present. Influenza testing was done, which was negative as well as Covid 19 testing which was negative. Legionella antibodies were negative. BNP was markedly elevated on admission. Patient was given IV antibiotics, IV steroids and had significant improvement. She was extubated on May 18. Cardiology was also consulted secondary to concern for non-ST elevation myocardial infarction. Medical management was recommended for this, secondary to her recent chemotherapy, significantly low platelets, and renal failure. Ejection fraction was preserved on echocardiogram done by cardiology. The rest of her hospital stay was spent in completing IV antibiotics, gradual improvement, moved to cardiac stepdown unit. Throughout this course she also had resolution of her renal failure. Platelet count climbed. Aspirin was re-added to her regimen and blood pressure medications were adjusted to adequately medically treat her non-ST elevation myocardial infarction. By May 24 it was thought she could be discharged to care home facility for further rehabilitation. She will also need to follow-up with oncology regarding multiple myeloma and whether or not any further treatment will be pursued. Physical Exam Narrative: EXAM NARRATIVE: General exam no apparent distress Cardiovascular regular in rhythm without murmur Lungs clear Abdomen is soft with positive bowel sounds Extremities no cyanosis clubbing or edema Urinary Catheter Management^: Johnson: Cath Placed During This Visit: yes, but has since been removed by the nurse Reason for Continuing Indwelling Catheter: Decision to DC Catheter Urinary Catheter Date of Insertion: 05/16/19 Urinary Catheter Time of Insertion: 14:50 Date Urinary Catheter Removed: 05/22/19 Time Urinary Catheter Discontinued: 10:16 Discharge Data Data Completed and Pending: Completed Studies During Hospitalization Category Date Time Status CT chest wo con 7 1250 Urgent Cat Scan 05/19/19 12:00 Completed XR chest 1V blanca ble [id number] Routine Exams 05/17/19 07:00 Completed XR chest 1V blanca ble [id number] Routine Exams 05/18/19 07:00 Completed XR chest 1V blanca ble [id number] Routine Exams 05/19/19 07:00 Completed XR chest 1V blanca ble [id number] Stat Exams 05/16/19 12:32 Completed XR chest 1V blanca ble [id number] Urgent Exams 05/16/19 Completed CV echo complete* [id number] Urgent Ultrasound 05/17/19 15:23 [place] [id number] Urgent Ultrasound 05/17/19 15:06 Completed Labs from last 24 hours 05/25/19 05/25/19 05/24/19 11:09 06:37 20:21 POC Glucose 122 85 203 05/24/19 16:05 POC Glucose 201 Vitals: Last Vital Signs Temp 98.1 F 05/25/19 04:00 Pulse 89 05/25/19 09:52 Resp 17 05/25/19 09:52 BP 123/53 05/25/19 09:52 Pulse Ox 93 05/25/19 09:52 Discharge Plan Discharge Patient Disposition: Xfer SNF Condition: Stable Prescriptions: New atorvastatin 40 mg Tablet 80 mg PO DAILY Qty: 60 RF: 0 insulin aspart U-100 [Novolog U-100 Insulin aspart] 100 unit/mL Solution 0 unit SUBCUT TIDWM Qty: 30 RF: 0 isosorbide mononitrate 30 mg Tablet Extended Release 24 Hr 30 mg PO DAILY Qty: 30 RF: 0 aspirin 81 mg Tablet,Delayed Release (Dr/Ec) 81 mg PO DAILY Qty: 30 RF: 0 amlodipine 10 mg Tablet 10 mg PO DAILY Qty: 30 RF: 0 prednisone 20 mg Tablet 20 mg PO DAILY Qty: 12 RF: 0 metoprolol tartrate 25 mg Tablet 25 mg PO BID Qty: 60 RF: 0 prednisone 10 mg Tablet 10 mg PO DAILY Qty: 4 RF: 0 ipratropium-albuterol 0.5 mg-3 mg(2.5 mg base)/3 mL Solution For Nebulization 3 ml inhalation Q6H.RESPIRATORY PRN (Reason: shortness of breath) Qty: 180 RF: 0 Continued acetaminophen [Tylenol 8 Hour] 650 mg tablet extended release 650 mg PO Q12H RF: 0 metformin 500 mg tablet 500 mg PO DAILY RF: 0 Complete Multivitamin Tablet 1 tab PO DAILY RF: 0 PreserVision AREDS [id number] capsule 2 cap PO BID RF: 0 sennosides-docusate sodium [Senna Plus] 8.6-50 mg tablet 1 tab-cap PO DAILY RF: 0 levothyroxine [Synthroid] 150 mcg tablet 150 mcg PO DAILY RF: 0 omeprazole 20 mg Tablet,Delayed Release (Dr/Ec) 20 mg PO DAILY RF: 0 Discontinued amlodipine 5 mg tablet 5 mg PO DAILY RF: 0 aspirin 325 mg tablet,delayed release (DR/EC) 325 mg PO DAILY RF: 0 hydrochlorothiazide 25 mg tablet 25 mg PO DAILY RF: 0 meloxicam 15 mg tablet 15 mg PO DAILY RF: 0 potassium chloride 10 mEq capsule, extended release 10 meq PO DAILY RF: 0 losartan 25 mg Tablet 25 mg PO DAILY RF: 0 Discharge Orders: Discharge Order (Routine); Ordered 05/25/19 Ordered By: Silvino Lee Referrals: [facility] [Outside] - 4-7 days Kelly Parker MD [Physician] - 2 weeks Saul Nieto Jr, MD [Primary Care Provider] - Discharge Diet: Cardiac and Diabetic Discharge Activity: Increase activity as tolerated Activity Restrictions/Additional Instructions: Therapy at nursing facility Take all medicine as prescribed Arrange follow-up with oncology for multiple myeloma Follow-up with cardiology, Dr. Parker, 2 weeks Follow-up with primary care provider at care home facility, and CBC and BMP in 3 to 5 days. Discharge Attestations Time Spent in Discharge Care*: greater than 30 min Quality Metrics Clinical Quality Measures During this hospital stay, did patient experience: AMI Clinical Trial Participant: No Contraindication to aspirin (AMI): Aspirin given Contraindic ation to statin: Statin prescribed Coding Level of Care Code Acute Electrogalvanizing Machine Operator for [facility] Fwd Diagnoses NSTEMI (non-ST elevated myocardial infarction) I21.4 Acute diastolic heart failure I50.31 Acute respiratory failure with hypoxia J96.01 Thrombocytopenia D69.6 Multiple myeloma C90.00 Multiple myeloma remission status: not in remission Acute kidney injury N17.9 Benign essential hypertension with target blood pressure below 140/90 I10
[2019-05-25] MEDS: levoFLOXacin 750 mg Tablet PO (13:17)
[2019-05-25 13:55] VITALS: BP 123/53; PULSE 89; RESP 17; O2SAT 93
--- NOTE | 2019-05-25 17:30 | PC.NURSE ---
prednisone taper received from dr goodwin:30 mg po daily x 4 days...then 20 mg po daily x 4 days...then 10 mg daily po daily x 4 days.this relayed to pt's cg (daughter rafael).she verb understanding of instructions.
== END 2019-05-25 15:04 | disposition skilled nursing facility (03) | DRG 871 ==
LOC: ER 14:58 → ICU 17:38 → MEDSURG 05-20 20:18 → CSU 05-20 20:19
PROVIDERS: Internal Medicine Critical Care Medicine; Admitting Provider Family Medicine; Emergency Provider Emergency Medicine; Family Provider Family Medicine; PCP Family Medicine; Visit Provider Internal Medicine
DX: A41.9 Sepsis, unspecified organism (principal); J96.01 Acute respiratory failure with hypoxia; I21.4 Non-ST elevation (NSTEMI) myocardial infarction; I50.31 Acute diastolic (congestive) heart failure; N17.0 Acute kidney failure with tubular necrosis; J18.9 Pneumonia, unspecified organism; C90.00 Multiple myeloma not having achieved remission; E87.2 Acidosis; I13.0 Hypertensive heart and chronic kidney disease with heart failure and stage 1 through stage 4 chronic kidney disease, or unspecified chronic kidney disease; I47.1 Supraventricular tachycardia; D69.6 Thrombocytopenia, unspecified; R65.20 Severe sepsis without septic shock; E03.9 Hypothyroidism, unspecified; R74.0 Nonspecific elevation of levels of transaminase and lactic acid dehydrogenase [LDH]; Z92.21 Personal history of antineoplastic chemotherapy; Z79.899 Other long term (current) drug therapy; Z79.82 Long term (current) use of aspirin; Z79.4 Long term (current) use of insulin; Z79.84 Long term (current) use of oral hypoglycemic drugs; Z79.83 Long term (current) use of bisphosphonates
CPT/HCPCS: 12345; 36415; 36416; 36591; 36592; 36600; 51702; 71045; 71250; 80048; 80051; 80053; 82784; 82803; 82810; 82962; 83605; 83735; 83880; 83883; 83986; 84100; 84145; 84155; 84165; 84484; 85007; 85025; 86140; 86403; 86713; 87040; 87070; 87205; 87635; 87804; 93005; 93010; 93306; 93970; 94002; 94003; 94640; 94660; 94799; 96361; 96367; 96368; 96372; 96374; 96375; 96413; 96415; 96417; 97110; 97116; 97161; 97530; 99214; 99284; A4570; C9113; J0330; J0456; J1100; J1200; J1650; J1815; J1940; J1956; J2060; J2250; J2405; J2543; J2704; J2920; J2930; J3010; J3370; J3490; J7030; J7040; J7050; J7512; J7611; J7644; J9047; J9145

== ENCOUNTER 2019-06-07 08:30 | Outpatient (RCR) | payer MEDICARE, SELFPAY ==
[2019-06-07 09:40] LABS: Basophils % 0.2 %; Eosinophils # 0.1 10^3/uL (0.0-0.8); Eosinophils % 2.3 %; Hematocrit 34.6 % (37.0-47.0); Hemoglobin 10.9 g/dL (11.5-15.3); Mean Corpuscular HGB Conc 31.5 g/dL (30.0-36.0); Mean Corpuscular Hemoglobin 30.2 pg (28.0-34.0); Mean Corpuscular Volume 95.8 fL (81-99); Mean Platelet Volume 10.7 fL (7.4-10.4); Monocytes # 0.5 10^3/uL (0.2-0.9); Monocytes % 10.9 %; Neutrophils # 2.2 10^3/uL (1.8-7.7); Neutrophils % 45.4 %; Nucleated Red Blood Cells % 0 %; Platelet Count 153 10^3/cmm (130-400); Red Blood Count 3.61 10^6/uL (4.1-5.3); Red Cell Distribution Width 15.5 % (12.1-15.1); White Blood Count 4.8 10^3/uL (4.0-10.0)
[2019-06-07 10:11] LABS: Alanine Aminotransferase 23 U/L (0-33); Albumin Level 3.3 g/dL (3.5-5.2); Alkaline Phosphatase 94 IU/L (35-105); Anion Gap 13.3 (5-19); Aspartate Amino Transferase 31 U/L (0-32); Blood Urea Nitrogen 13 mg/dL (8-23); Calcium 9.6 mg/dL (8.5-10.5); Carbon Dioxide 26 mmol/L (22-29); Chloride 105 mmol/L (98-107); Globulin 3.5 g/dL (1.3-4.6); Glucose 115 mg/dL (65-115); Immunoglobulin IGG 1995 mg/dL (700-1600); Immunoglobulin IGM 28 mg/dL (40-230); Osmolality Calculated 289 mOsm/kg (285-295); Potassium 3.3 mmol/L (3.5-5.1); Sodium 141 mmol/L (136-145); Total Bilirubin 0.8 mg/dL (0.15-1.2); Total Protein 6.8 g/dL (6.6-8.7)
[2019-06-07 10:27] LABS: Immunoglobulin IGA < 50 mg/dL (70-400)
[2019-06-08 05:26] LABS: PROTEIN, TOTAL 6.2 g/dL (6.1-8.1)
[2019-06-10 11:50] LABS: KAPPA LIGHT CHAIN, FREE, SERUM 41.4 mg/L (3.3-19.4); KAPPA/LAMBDA LIGHT CHAINS FREE 12.55 (0.26-1.65); LAMBDA LIGHT CHAIN, FREE, SERU 3.3 mg/L (5.7-26.3)
[2019-06-10 15:07] LABS: ABNORMAL PROTEIN BAND 1 1.6 g/dL (NONE DETECTED); ALPHA 1 GLOBULIN 0.3 g/dL (0.2-0.3); ALPHA 2 GLOBULIN 0.6 g/dL (0.5-0.9); BETA 1 GLOBULIN 0.4 g/dL (0.4-0.6); BETA 2 GLOBULIN 0.2 g/dL (0.2-0.5); GAMMA GLOBULIN 1.6 g/dL (0.8-1.7)
== END 2019-06-27 23:59 | disposition home or self-care (01) ==
LOC: ONCMED 08:30
PROVIDERS: Family Provider Family Medicine; PCP Family Medicine; Visit Provider Nurse Practitioner
DX: C90.00 Multiple myeloma not having achieved remission (principal); E83.52 Hypercalcemia
CPT/HCPCS: 36415; 80053; 82784; 83883; 84155; 84165; 85025

== ENCOUNTER 2019-07-05 08:20 | Outpatient (RCR) | payer MEDICARE, SELFPAY ==
[2019-07-05 13:36] LABS: Alanine Aminotransferase 17 U/L (0-33); Albumin Level 3.4 g/dL (3.5-5.2); Alkaline Phosphatase 86 IU/L (35-105); Anion Gap 15.4 (5-19); Aspartate Amino Transferase 30 U/L (0-32); Blood Urea Nitrogen 16 mg/dL (8-23); Calcium 10.4 mg/dL (8.5-10.5); Carbon Dioxide 26 mmol/L (22-29); Chloride 104 mmol/L (98-107); Globulin 4.5 g/dL (1.3-4.6); Glucose 126 mg/dL (65-115); Osmolality Calculated 292 mOsm/kg (285-295); Potassium 3.4 mmol/L (3.5-5.1); Sodium 142 mmol/L (136-145); Total Bilirubin 0.6 mg/dL (0.15-1.2); Total Protein 7.9 g/dL (6.6-8.7)
[2019-07-05 13:58] LABS: Basophils % 0.4 %; Eosinophils # 0.2 10^3/uL (0.0-0.8); Eosinophils % 3.1 %; Hematocrit 35.1 % (37.0-47.0); Hemoglobin 11.2 g/dL (11.5-15.3); Lymphocytes # 3.4 10^3/uL (0.8-4.8); Lymphocytes % 45.2 %; Mean Corpuscular HGB Conc 31.9 g/dL (30.0-36.0); Mean Corpuscular Hemoglobin 30.6 pg (28.0-34.0); Mean Corpuscular Volume 95.9 fL (81-99); Mean Platelet Volume 11.6 fL (7.4-10.4); Monocytes # 0.7 10^3/uL (0.2-0.9); Monocytes % 9.7 %; Neutrophils # 3.1 10^3/uL (1.8-7.7); Neutrophils % 41.3 %; Nucleated Red Blood Cells % 0 %; Platelet Count 182 10^3/cmm (130-400); Red Blood Count 3.66 10^6/uL (4.1-5.3); White Blood Count 7.5 10^3/uL (4.0-10.0)
[2019-07-06 07:51] LABS: PROTEIN, TOTAL 6.8 g/dL (6.1-8.1)
[2019-07-08 11:42] LABS: KAPPA LIGHT CHAIN, FREE, SERUM 77.9 mg/L (3.3-19.4); KAPPA/LAMBDA LIGHT CHAINS FREE 19.97 (0.26-1.65); LAMBDA LIGHT CHAIN, FREE, SERU 3.9 mg/L (5.7-26.3)
[2019-07-08 15:51] LABS: ABNORMAL PROTEIN BAND 1 2.1 g/dL (NONE DETECTED); ALPHA 1 GLOBULIN 0.3 g/dL (0.2-0.3); ALPHA 2 GLOBULIN 0.7 g/dL (0.5-0.9); BETA 1 GLOBULIN 0.4 g/dL (0.4-0.6); BETA 2 GLOBULIN 0.2 g/dL (0.2-0.5); GAMMA GLOBULIN 2.2 g/dL (0.8-1.7)
== END 2019-07-28 23:59 | disposition home or self-care (01) ==
LOC: ONCMED 08:20
PROVIDERS: Nurse Practitioner; PCP Family Medicine; Visit Provider Internal Medicine Medical Oncology
DX: C90.00 Multiple myeloma not having achieved remission (principal); D64.9 Anemia, unspecified; E83.52 Hypercalcemia
CPT/HCPCS: 36415; 80053; 83883; 84155; 84165; 85025

== ENCOUNTER 2019-08-13 13:17 | Outpatient (CLI) | payer MEDICARE, SELFPAY ==
--- NOTE | 2019-08-16 17:52 | ONC FU_ITS ---
Dr. Muñoz Patient Follow-Up Note Patient: [facility] Unit #: [id number]: 1935 Dicatated By: Kris Muñoz M.D.Date of Visit:Aug 13, 2019 Onc Med Follow-up/Prog Note Chief Complaint: Myeloma. History of Present Illness: This is an 83 year-old woman with IgG kappa myeloma. She had presented to Dr. Nieto on 10/24/2017 with complaints of dizziness/lightheadedness, fatigue, and anorexia. She reported that at times she felt like passing out and having to lie down. She reported having problems with memory and she complained that she had been sleeping a lot. Her CBC showed low hemoglobin at 8.8 g, white blood cell count borderline at 4300 and platelet count mildly decreased at 103,000. Her comprehensive metabolic profile showed elevated BUN and creatinine at 23 and 1.42 mg/dL and significantly elevated serum calcium at 14.5 mg/dL with albumin low at 2.5 g/dL. The calculated serum globulin was significantly elevated at 7.9 g/dL. Bone marrow aspiration/biopsy on 10/27/2017 showed hypercellular marrow with 63% plasma cells, consistent with myeloma. At that time, she was given an infusion of sodium pamidronate for the hypercalcemia, and she also was given dexamethasone 40 mg daily for 4 days. Skeletal survey on 10/27/2017 showed evidence of diffuse bone demineralization but without evidence of large osteolytic lesion. Subcentimeter lucent foci in the [place] bilaterally were felt to be consistent with osteoporosis, myelomatous lesions, or metastatic disease. Serum protein electrophoresis and 11/20/2017 showed IgG kappa paraprotein quantitating at 4.1 g/dL. The free light chain assay showed elevated free kappa light chain at 228.24 mg/L with elevated kappa/lambda ratio at 17.40. She returned on 11/16/2017 to begin treatment with Velcade/Revlimid/dexamethasone. I opted to use a weekly Velcade regimen on a 21/28 day schedule. Due to her age and renal function, the Revlimid was initiated at a reduced dosage of 10 mg daily for 21 days. The dexamethasone was reduced to 20 mg weekly. At that time, her calcium had become elevated again at 10.3 mg/dL with albumin 2.2 g/dL. Her renal function had improved with creatinine down to 1.0 mg/dL. As such, she was given zoledronic acid 3.5 mg by IV infusion. On 11/20/2017 she came in with a 2-day history of fever and chills. A specific source of infection was not identified other than her chest x-ray was suspicious for possible pneumonia. She was treated empirically with Levaquin, I did opt to put her Revlimid on hold, as she also was having diarrhea at that point. Her follow-up CBC on 11/23/2017 showed further decline in hemoglobin to 6.4 g, and the following day she was transfused 2 units of PRBC. She did receive her day 8 Velcade, and she was able to return for day 15 Velcade on 11/29/2017. Hemoglobin at that point was adequate at 9.9 g. She then continued her 2nd cycle on 12/13/2017 with the Revlimid omitted. The Velcade was again administered weekly for 3 weeks, and the dexamethasone was changed to 20 mg twice weekly. A repeat protein electrophoresis on 12/25/2017 showed significant improvement with the M protein quantitating at 0.73 g/dL. She then continued with cycle 3 of Velcade/dexamethasone on 01/11/2018, with cycle 4 on 02/07/2018, with cycle 5 on 03/06/2018, and with cycle 6 on 04/04/2018. Her repeat serum protein electrophoresis on 05/01/2018 showed 2 monoclonal protein bands which together quantitated at 0.21 g/dL compared to 0.31 g/dL on 03/06/2018. The serum free light chain assay showed normal kappa light chain at 1.28 mg/dL and normal lambda light chain at 1.52 mg/dL with the kappa/lambda ratio normal at 0.8421. She was seen for a follow-up visit on 05/02/2018, and she then began maintenance Revlimid at 5 mg daily. As of 05/29/2018 the Revlimid was put on hold due to worsening skin eruption. The skin eruption had initially continued to worsen somewhat after stopping the Revlimid, but it then gradually resolved. I had seen her for a follow-up visit on 07/17/2018. At that point she had only minimal residual M protein. She appeared stable clinically, and given the side effects she experienced with her treatment, I opted to just follow her on observation/expectant management. Her other medical illnesses include hypertension, type II diabetes with peripheral neuropathy, and degenerative arthritis. She is a nonsmoker. INTERIM HISTORY: As of March 2019 there was a significant increase in her M protein and in her kappa free light chain. She had become mildly anemic. It was clear at that point that her myeloma was progressing, and we opted to proceed to a trial of second line therapy with daratumumab in combination with carfilzomib and dexamethasone. She began her day 1 treatment on 05/14/2019, which she tolerated well. However, following her day 2 treatment she was admitted to the hospital with acute respiratory distress/flash pulmonary edema. Her clinical course was complicated by non-ST elevation myocardial infarction, acute renal injury, and thrombocytopenia. She did have a good recovery. She is seen for a scheduled visit. She has been feeling pretty good generally. She does have somewhat limited activity, but she is able to do light work. She describes her appetite is low, but okay. Her weight is down at least 10 pounds. She does not have fever or night sweats. She has no shortness of breath, cough, or chest pain. She has no GI complaints other than some constipation, but recently that has been a little better. 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 She has been having pain in her left hip and she says her left shoulder has been acting up. She says that both knees are a mass. She also has some back pain. She does not complain of headache, and she has no focal neurologic symptoms. Medications: Acetaminophen Tablet Oral PRN, AmLODIPine Besylate 1 Tablet (of 10 mg) Oral every am, Aspirin 1 (325 mg) Tablet Oral daily, Grass Fed Beef 3 (500 mg) Tablet Oral b.i.d., HydroCHLOROthiazide 1 Tablet (of 25 mg) Oral daily on Every Other Day, Meloxicam 1 Tablet (of 15 mg) Oral daily, MetFORMIN HCl 1 Tablet (of 500 mg) Oral daily, Multivitamin Women 50+ 1 Tablet Oral daily, PreserVision AREDS 2 Tablet Oral daily, Senna S 1 - 2 Tablet (of 8.6-50 mg) Oral daily, Synthroid 1 Tablet (of 150 mcg) Oral daily Allergies: EKG patches, Lisinopril, and revlimd. Review of Systems: Constitutional - Energy has been okay. She is able to do light work. She uses a walker or cane to ambulate. Appetite is low, but also still okay. Her weight is down a little. ECOG score is 1, ENMT - No sinus congestion/drainage. No mouth sores. No sore throat or difficulty swallowing, Hematologic/Lymphatic - No abnormal bruising or bleeding, Respiratory - No shortness of breath. No cough. No pleuritic pain or hemoptysis, Cardiovascular - No angina pain. No palpitations, Gastrointestinal - No nausea or vomiting. No heartburn or acid reflux. She has constipation, but lately her bowels have been a little better. No blood in the stool or black stools, Genitourinary (F) - No dysuria or hematuria. No urinary frequency. She has urgency and sometimes incontinence at night, Musculoskeletal - She has significant pain in her left hip. She has pain in her left shoulder and in both knees. She also has some lower back pain, Integumentary - No skin rash, Neurologic - No headache. Lately she has not had dizziness. No numbness or tingling. No other focal neurologic symptoms, Psychiatric - No anxiety or depression. She does not sleep well. Vital Signs: Performed on Aug 13, 2019 12:01 Height - 66.00 in Weight - 168 lbs (LOW) BSA - 1.86 sq.m BMI - 27.12 Temperature - 98.7 F Pulse - 65 /min Respiration - 16 /min BP - 138/60 mm(hg) O2 Sat - 98 % Pain - 4 Physical Examination: Constitutional - She looks a little puffy, Eyes - Sclerae nonicteric. Conjunctivae clear, ENMT - No lesions noted in the oral cavity, Hematologic/Lymphatic - No cervical, clavicular, or axillary adenopathy, Respiratory - Lungs are clear with good air movement bilaterally, Cardiovascular - Heart rhythm is regular. There is a II/ systolic murmur. There is no gallop or rub noted, Abdomen - Soft. Liver and spleen are not enlarged. There is no abdominal mass or ascites noted and there is no inguinal adenopathy, Extremities - Mild pedal edema, Integumentary - No evidence of skin eruption, Neurologic - No focal neurologic deficits noted. Lab/Imaging: Test performed on Aug 06, 2019 09:36 Glucose 159 mg/dL Protein, Total 8.0 g/dL Albumin, SPE 3.54 g/dL BUN 15 mg/dL Creatinine 0.78 mg/dL Cr Clearance (Est) 70.88 mL/min Sodium 140 mmol/L Potassium 3.3 mmol/L Chloride 106 mmol/L CO2 23 mmol/L Calcium 10.3 mg/dL Albumin 3.2 g/dL Bilirubin, Total 0.6 mg/dL Alkaline Phosphatase 68 IU/L AST (SGOT) 34 IU/L ALT (SGPT) 16 IU/L WBC 5.3 10^9/L RBC 3.46 10^12/L HGB 10.4 g/dL HCT 31.6 % MCV 91.3 fl MCH 30.1 pg MCHC 32.9 g/dL RDW 13.8 % Platelet Count 164 10^9/L MPV 10.3 fL Neutrophils (Gran) 1.87 10^9/L Lymphocytes 2.57 10^9/L Monocytes 0.51 10^9/L Eosinophils 0.28 10^9/L Basophils 0.02 10^9/L Manual Lymphocytes 49 % Manual Monocytes 10 % Manual Eosinophils 5 % Manual Basophils 0 % IGA 21 mg/dL IGG 3924 mg/dL IGM 21 mg/dL [place] / Lambda Ratio 28.97 Absolute Value Lambda Light Chain 5.86 [place] Light Chain 169.77 Fmvis-9-daoosxgo 0.24 g/dL Erlet-7-toojjazs 0.69 g/dL Beta Globulin 0.71 g/dL Gamma Globulin 2.82 g/dL SPE Interpretation Significant increase in monoclonal proteinemia since prior study Impression: 1. Patient with IgG kappa myeloma. Her bone marrow aspiration/biopsy on 10/27/2017 was hypercellular with 63% plasma cells. 2. She had anemia, renal dysfunction, and symptomatic hypercalcemia at initial presentation. Her skeletal survey showed diffuse bone demineralization, but without evidence of any large osteolytic lesions. Her other medical illnesses include: 3. Hypertension. 4. Type II diabetes. 5. Peripheral neuropathy. 6. Degenerative arthritis. 7. She has a history of nephrolithiasis. She had some improvement on initial treatment with sodium pamidronate and 4 days of high-dose dexamethasone. She then began treatment with Velcade/Revlimid/dexamethasone on 11/16/2017. The Revlimid was initiated at a reduced dosage of 10 mg daily on a day schedule with the Velcade and dexamethasone administered weekly. At that time she also received an infusion of zoledronic acid. Her 1st cycle of treatment was complicated by a febrile illness and diarrhea. She also developed pancytopenia with worsening anemia, requiring PRBC transfusion. I was uncertain to what extent her problems may have been due to the treatment or to the underlying myeloma. Her Revlimid was put on hold at day 4. She was then able to continue treatment with Velcade and dexamethasone. As of 04/04/2018 she began her 6th cycle of treatment. Her repeat serum protein electrophoresis on 05/01/2018 showed 2 monoclonal bands which together quantitated at 0.21 g/dL. The serum free light chain assay showed normal kappa/lambda ratio. Her hemoglobin was stable at 11.2 g. As of her follow-up visit on 05/02/2018 she was still having some fatigue, but she otherwise appeared stable clinically. She then began maintenance Revlimid at 5 mg daily. It was put on hold as of 05/29/2018 due to worsening skin eruption. The skin eruption subsequently did resolve, though gradually. As of her follow-up visit in June 2018 she had only a very small amount of residual M protein, and she appeared stable clinically. Given the side effects she had experienced with her treatment, I opted to just follow her on observation/expectant management. During her subsequent follow-up her clinical status initially remained stable. However, as of her follow-up in March 2019 there had been a slight drop in her hemoglobin/hematocrit levels, and her protein electrophoresis studies showed a significant increase in her M protein, to 2.11 g/dL, and a significant increase in the kappa free light chain, to 105.21 mg/L, with the kappa/lambda ratio elevated at 8.65. This was obviously consistent with progression of the myeloma. On 05/14/2019 she began a trial of second line therapy with daratumumab in combination with carfilzomib and dexamethasone. Following her day 2 treatment she required hospitalization for acute respiratory distress/pulmonary edema. Her clinical course was complicated by acute renal injury and thrombocytopenia. She did have a good recovery. Following hospitalization April she did show gradual improvement in her performance status. However, her laboratory studies now are showing further progression of the myeloma. Plan: We discussed the fact that she will need to start her third line treatment, I am not yet certain what that will be, as both the daratumumab and the carfilzomib could potentially cause acute respiratory distress. The best option may be a trial of pomalidomide with dexamethasone. At least initially, I do want her to complete additional staging with a skeletal survey and PET/CT. Signed By: Kris Muñoz M.D. <<Signature on File>>
== END 2019-08-13 13:18 | disposition home or self-care (01) ==
LOC: ONCMED 13:19
PROVIDERS: PCP Family Medicine; Visit Provider Internal Medicine Medical Oncology
DX: C90.00 Multiple myeloma not having achieved remission (principal); I10 Essential (primary) hypertension; E11.42 Type 2 diabetes mellitus with diabetic polyneuropathy; M19.90 Unspecified osteoarthritis, unspecified site; Z87.442 Personal history of urinary calculi; Z79.899 Other long term (current) drug therapy; Z79.84 Long term (current) use of oral hypoglycemic drugs
CPT/HCPCS: 99214

== ENCOUNTER 2019-09-12 12:00 | Outpatient (CLI) | payer MEDICARE, SELFPAY ==
[2019-09-12 12:56] LABS: Basophils % 0.3 %; Eosinophils # 0.2 10^3/uL (0.0-0.8); Eosinophils % 3.3 %; Hematocrit 31.1 % (37.0-47.0); Hemoglobin 9.7 g/dL (11.5-15.3); Lymphocytes # 2.8 10^3/uL (0.8-4.8); Lymphocytes % 48.5 %; Mean Corpuscular HGB Conc 31.2 g/dL (30.0-36.0); Mean Corpuscular Hemoglobin 29.5 pg (28.0-34.0); Mean Corpuscular Volume 94.5 fL (81-99); Mean Platelet Volume 10.4 fL (7.4-10.4); Monocytes # 0.7 10^3/uL (0.2-0.9); Monocytes % 11.5 %; Neutrophils # 2.12 10^3/uL (1.8-7.7); Neutrophils % 36.2 %; Nucleated Red Blood Cells % 0 %; Platelet Count 153 10^3/cmm (130-400); Red Blood Count 3.29 10^6/uL (4.1-5.3); Red Cell Distribution Width 14.9 % (12.1-15.1); White Blood Count 5.8 10^3/uL (4.0-10.0)
[2019-09-12 13:11] LABS: Alanine Aminotransferase 18 U/L (0-33); Albumin Level 3.1 g/dL (3.5-5.2); Alkaline Phosphatase 72 IU/L (35-105); Anion Gap 12.6 (5-19); Aspartate Amino Transferase 35 U/L (0-32); Blood Urea Nitrogen 14 mg/dL (8-23); Calcium 10.6 mg/dL (8.5-10.5); Carbon Dioxide 24 mmol/L (22-29); Chloride 106 mmol/L (98-107); Globulin 6.1 g/dL (1.3-4.6); Glucose 112 mg/dL (65-115); Osmolality Calculated 285 mOsm/kg (285-295); Potassium 3.6 mmol/L (3.5-5.1); Sodium 139 mmol/L (136-145); Total Bilirubin 0.6 mg/dL (0.15-1.2); Total Protein 9.2 g/dL (6.6-8.7)
[2019-09-12 13:24] LABS: Immunoglobulin IGA < 50 mg/dL (70-400); Immunoglobulin IGG 5604 mg/dL (700-1600); Immunoglobulin IGM < 25 mg/dL (40-230)
[2019-09-13 10:20] LABS: PROTEIN, TOTAL 9.4 g/dL (6.1-8.1)
[2019-09-13 13:10] LABS: ABNORMAL PROTEIN BAND 1 4.7 g/dL (NONE DETECTED); ALBUMIN 3.2 g/dL (3.8-4.8); ALPHA 1 GLOBULIN 0.3 g/dL (0.2-0.3); ALPHA 2 GLOBULIN 0.6 g/dL (0.5-0.9); BETA 1 GLOBULIN 0.4 g/dL (0.4-0.6); BETA 2 GLOBULIN 0.2 g/dL (0.2-0.5); GAMMA GLOBULIN 4.8 g/dL (0.8-1.7)
[2019-09-13 14:35] LABS: KAPPA/LAMBDA LIGHT CHAINS FREE 88.75 (0.26-1.65); LAMBDA LIGHT CHAIN, FREE, SERU 3.2 mg/L (5.7-26.3)
[2019-09-15 19:33] LABS: Thyroid Stimulating Hormone 0.06 uIU/mL (0.27-4.20)
--- NOTE | 2019-09-16 13:26 | ONC FU_ITS ---
Noa Olvera Patient Note Patient: Alta Red Unit #: [id number]: 1935 Dictated By: Aram SueBCDate of Visit: Sep 12, 2019 Onc MED Follow-Up/Prog Note Chief Complaint: Myeloma. History of Present Illness: Mrs Red is an 83 year-old woman with IgG kappa myeloma. She had presented to Dr. Nieto on 10/24/2017 with complaints of dizziness/lightheadedness, fatigue, and anorexia. She reported that at times she felt like passing out and having to lie down. She reported having problems with memory and she complained that she had been sleeping a lot. Her CBC showed low hemoglobin at 8.8 g, white blood cell count borderline at 4300 and platelet count mildly decreased at 103,000. Her comprehensive metabolic profile showed elevated BUN and creatinine at 23 and 1.42 mg/dL and significantly elevated serum calcium at 14.5 mg/dL with albumin low at 2.5 g/dL. The calculated serum globulin was significantly elevated at 7.9 g/dL. Bone marrow aspiration/biopsy on 10/27/2017 showed hypercellular marrow with 63% plasma cells, consistent with myeloma. At that time, she was given an infusion of sodium pamidronate for the hypercalcemia, and she also was given dexamethasone 40 mg daily for 4 days. Skeletal survey on 10/27/2017 showed evidence of diffuse bone demineralization but without evidence of large osteolytic lesion. Subcentimeter lucent foci in the Femara bilaterally were felt to be consistent with osteoporosis, myelomatous lesions, or metastatic disease. Serum protein electrophoresis and 11/20/2017 showed IgG kappa paraprotein quantitating at 4.1 g/dL. The free light chain assay showed elevated free kappa light chain at 228.24 mg/L with elevated kappa/lambda ratio at 17.40. She returned on 11/16/2017 to begin treatment with Velcade/Revlimid/dexamethasone. Dr Muñoz opted to use a weekly Velcade regimen on a 21/28 day schedule. Due to her age and renal function, the Revlimid was initiated at a reduced dosage of 10 mg daily for 21 days. The dexamethasone was reduced to 20 mg weekly. At that time, her calcium had become elevated again at 10.3 mg/dL with albumin 2.2 g/dL. Her renal function had improved with creatinine down to 1.0 mg/dL. As such, she was given zoledronic acid 3.5 mg by IV infusion. On 11/20/2017 she came in with a 2-day history of fever and chills. A specific source of infection was not identified other than her chest x-ray was suspicious for possible pneumonia. She was treated empirically with Levaquin, it was opted to put her Revlimid on hold, as she also was having diarrhea at that point. Her follow-up CBC on 11/23/2017 showed further decline in hemoglobin to 6.4 g, and the following day she was transfused 2 units of PRBC. She did receive her day 8 Velcade, and she was able to return for day 15 Velcade on 11/29/2017. Hemoglobin at that point was adequate at 9.9 g. She then continued her 2nd cycle on 12/13/2017 with the Revlimid omitted. The Velcade was again administered weekly for 3 weeks, and the dexamethasone was changed to 20 mg twice weekly. A repeat protein electrophoresis on 12/25/2017 showed significant improvement with the M protein quantitating at 0.73 g/dL. She then continued with cycle 3 of Velcade/dexamethasone on 01/11/2018, with cycle 4 on 02/07/2018, with cycle 5 on 03/06/2018, and with cycle 6 on 04/04/2018. Her repeat serum protein electrophoresis on 05/01/2018 showed 2 monoclonal protein bands which together quantitated at 0.21 g/dL compared to 0.31 g/dL on 03/06/2018. The serum free light chain assay showed normal kappa light chain at 1.28 mg/dL and normal lambda light chain at 1.52 mg/dL with the kappa/lambda ratio normal at 0.8421. She was seen for a follow-up visit on 05/02/2018, and she then began maintenance Revlimid at 5 mg daily. As of 05/29/2018 the Revlimid was put on hold due to worsening skin eruption. The skin eruption had initially continued to worsen somewhat after stopping the Revlimid, but it then gradually resolved. Dr Muñoz had seen her for a follow-up visit on 07/17/2018. At that point she had only minimal residual M protein. She appeared stable clinically, and given the side effects she experienced with her treatment, it was opted to just follow her on observation/expectant management. Her other medical illnesses include hypertension, type II diabetes with peripheral neuropathy, and degenerative arthritis. She is a nonsmoker. INTERIM HISTORY: As of March 2019 there was a significant increase in her M protein and in her kappa free light chain. She had become mildly anemic. It was clear at that point that her myeloma was progressing, and we opted to proceed to a trial of second line therapy with daratumumab in combination with carfilzomib and dexamethasone. She began her day 1 treatment on 05/14/2019, which she tolerated well. However, following her day 2 treatment she was admitted to the hospital with acute respiratory distress/flash pulmonary edema. Her clinical course was complicated by non-ST elevation myocardial infarction, acute renal injury, and thrombocytopenia. She did have a good recovery. She did have a negative COVID 19 test during that hospitalization. She has remained off treatment. Mrs. Red was seen in July by Dr. Muñoz and he recommended that she pursue further treatment with pomalidomide and Ninlaro. After appealing to insurance. Her treatment plan has been approved. She is here today for follow-up. She did have PET CT imaging at [facility] on 08/29/2019. Reported no evidence of osseous or soft tissue tumor involvement. There were arthritic changes present in the musculoskeletal area particularly in the left hip. Hypertrophic changes were present in the spine. There was mild increase of metabolic activity in the right scapular coracoid process base with a maximum SUV of 2.7 with no obvious sclerotic or lytic change. Soft tissue inflammatory changes were present in both shoulder joints. She states overall she is doing well. She has good energy. Her appetite is good. She denies any fever or chills. She is had no mouth sores sore throat or difficulty swallowing. She denies any chest pain or palpitations. She denies any lower extremity edema or neuropathy symptoms. She denies diarrhea or constipation. She has had no recent nausea or vomiting. She states overall she feels good has been active around the house. She states she has noticed some hair loss and some slight fatigue. She is also having left shoulder left jaw left knee pain she states the jaw pain is like is hard to chew a hamburger.. She is also wondering when she could have hip surgery. She is seen Dr. Díaz in [place]. She did have repeat serum protein electrophoresis and serum light chain assay for baseline today. Her ECOG is 0. Past Medical History: Degenerative arthritis Hypertension Hypothyroidism Nephrolithiasis Peripheral neuropathy Type II diabetes Past Surgical History: Breast reduction Excision of Adler's neuroma x 3 Hysterectomy Left bunionectomy Lithotripsy for renal stones in 1958 and in 1989 Tonsillectomy Flu shot in 2018 D&C in 2011 Hysterectomy without oophorectomy in 2011 Right total hip arthroplasty in 2011 Laparoscopic cholecystectomy in 1991 Breast reduction in 1983 Cholecystectomy in 1982 Thyroidectomy in 1959 Allergies: EKG patches, Lisinopril, and revlimd. Medications: Acetaminophen Tablet Oral PRN AmLODIPine Besylate 1 Tablet (of 10 mg) Oral every am Aspirin 1 (325 mg) Tablet Oral daily Atorvastatin Calcium 1 Tablet (of 20 mg) Oral daily Grass Fed Beef 3 (500 mg) Tablet Oral b.i.d. Isosorbide Mononitrate 1 Tablet (of 10 mg) Oral daily Meloxicam 1 Tablet (of 15 mg) Oral daily MetFORMIN HCl 0.5 Tablet (of 500 mg) Oral daily Metoprolol Succinate ER 1 Tablet (of 25 mg) Tablet SR 24 HR Oral daily Multivitamin Women 50+ 1 Tablet Oral daily Pantoprazole Sodium 1 Tablet (of 20 mg) Tablet, enteric coated Oral daily PreserVision AREDS 2 Tablet Oral daily Senna S 1 - 2 Tablet (of 8.6-50 mg) Oral daily Synthroid 1 Tablet (of 150 mcg) Oral daily Family History: Ms. Red's mother at age 83: congestive heart failure. Ms. Red's father is alive. Ms. Red has 1 brother who is alive. She has 2 sisters: 2 alive. Father is still living at age 103. Mother with congestive heart failure at age 83. She also had been treated for breast cancer, renal cell cancer, and uterine cancer. One brother and two sisters are in good health. Social History: Ms. Red is and she is retired. Ms. Red has never smoked. She has no history of drinking. She is a nonsmoker. She does not drink alcohol. Review Of Symptoms: Constitutional Denies fevers, chills, night sweats, excessive fatigue. She states she has noticed some hair loss and some slight fatigue. She is also having left shoulder left jaw left knee pain she states the jaw pain is like is hard to chew a hamburger. Allergic/Immunologic No reactions. Eyes Denies significant visual changes. No diplopia. No amaurosis. ENMT Denies changes in hearing, sore throat, mouth sores, difficulty or changes in swallowing ability, and/or sinus drainage. Hematologic/Lymphatic Denies easy bruising or bleeding. The patient denies any tender or palpable lymph nodes. Respiratory Stable dyspnea on exertion, but denies chest pain, cough or hemoptysis. Denies orthopnea. Cardiovascular Denies anginal chest pain, palpitations or orthopnea. Gastrointestinal Denies nausea, vomiting, diarrhea, GI bleeding, or constipation. Denies change in bowel habits and/or stool color, or early satiety. Genitourinary (F) No hematuria, hesitancy, incontinence, vaginal bleeding, discharge or other problems with urination. Musculoskeletal She is having left shoulder left jaw left knee pain she states the jaw pain is like is hard to chew a hamburger.. She is also wondering when she could have hip surgery. She is seen by Dr. Díaz in [place]. Integumentary Denies chronic rashes, inflammation, ulcerations or skin changes. Neurologic Denies headache, blurred vision, and no areas of focal weakness or numbness. Normal slow gait. No sensory problems. Psychiatric Denies insomnia, depression, marylin or mood swings. Vital Signs: Performed on Sep 12, 2019 13:05 Height - 66.00 in Weight - 167.6 lbs (LOW) BSA - 1.86 sq.m BMI - 27.05 Temperature - 97.7 F (LOW) Pulse - 72 /min Respiration - 18 /min BP - 152/63 mm(hg) (HIGH) O2 Sat - 97 % Pain - 0,0 - Fully active, able to carry on all predisease activities without restrictions. (ECOG) Physical Examination: Constitutional Alert, oriented, no acute distress. Skin pink, warm and dry. Head Normocephalic; atraumatic. Eyes Conjunctivae and sclerae are clear and without icterus. Pupils are reactive and equal. Neck Supple without masses or thyromegaly. No jugular venous distension. Hematologic/Lymphatic No petechiae or purpura. No tender or palpable lymph nodes in the cervical or supraclavicular areas. Respiratory Lungs are clear to auscultation without rhonchi or wheezing. Cardiovascular Regular rate and rhythm of heart without murmurs,clicks, gallops or rubs. Abdomen Non-tender, non-distended, no masses, ascites or hepatosplenomegaly. Good bowel sounds noted in all quads. No guarding or rebound tenderness. No pulsatile masses. Back/Spine Non-tender to palpation. Extremities No visible deformities, no cyanosis, clubbing or edema. Musculoskeletal No tenderness or swelling, normal range of motion without obvious weakness. Integumentary No rashes or lesions.-see above Neurologic No sensory or motor deficits, normal cerebellar function, normal gait. Psychiatric Alert and oriented times three. Coherent speech. Verbalizes understanding of our discussions today. Laboratory:Test performed on Sep 12, 2019 12:18 Sodium 139 mmol/L Potassium 3.6 mmol/L Chloride 106 mmol/L CO2 24 mmol/L Anion Gap 12.6 BUN 14 mg/dL Creatinine 0.8 mg/dL Cr Clearance (Est) 63.9500 mL/min Glucose 112 mg/dL Calcium 10.6 mg/dL Protein, Total 9.2 g/dL Albumin 3.1 g/dL Globulin 6.1 g/dL Bilirubin, Total 0.6 mg/dL ALT (SGPT) 18 U/L AST (SGOT) 35 U/L Alkaline Phosphatase 72 IU/L WBC 5.8 10 3/uL RBC 3.29 10 6/uL HGB 9.7 g/dL HCT 31.1 % MCV 94.5 fL MCH 29.5 pg MCHC 31.2 g/dL RDW 14.9 % Platelet Count 153 10 3/cmm MPV 10.4 fL Neutrophils 2.12 10 3/uL Lymphocytes 2.8 10 3/uL Monocytes 0.7 10 3/uL Eosinophils 0.2 10 3/uL Basophils 0.0 10 3/uL Neutrophil % 36.2 % Lymphocyte % 48.5 % Monocyte % 11.5 % Eosinophil % 3.3 % Basophils % 0.3 % NRBC % 0 % IgA < 50 mg/dL IgG 5604 mg/dL IgM < 25 mg/dL Test performed on Sep 12, 2019 12:15 TSH 0.06 uIU/mL Test performed on Aug 06, 2019 09:36 Albumin, SPE 3.54 g/dL Manual Lymphocytes 49 % Manual Monocytes 10 % Manual Eosinophils 5 % Manual Basophils 0 % Dandridge / Lambda Ratio 28.97 Absolute Value Lambda Light Chain 5.86 [place]ridge Light Chain 169.77 Eewji-0-bahmhtps 0.24 g/dL Dnssw-1-jtdbbvwy 0.69 g/dL Beta Globulin 0.71 g/dL Gamma Globulin 2.82 g/dL SPE Interpretation Significant increase in monoclonal proteinemia since prior study Test performed on Apr 09, 2019 10:09 M-David 2.11 g/dL Test performed on Apr 09, 2019 09:52 Sed Rate 56 mm/hr Lambda Light Chain (Quant) 12.17 mg/dL Dandridge Light Chain (Quant) 105.21 mg/dL Impression: 1. Patient with IgG kappa myeloma. Her bone marrow aspiration/biopsy on 10/27/2017 was hypercellular with 63% plasma cells. 2. She had anemia, renal dysfunction, and symptomatic hypercalcemia at initial presentation. Her skeletal survey showed diffuse bone demineralization, but without evidence of any large osteolytic lesions. Her other medical illnesses include: 3. Hypertension. 4. Type II diabetes. 5. Peripheral neuropathy. 6. Degenerative arthritis. 7. She has a history of nephrolithiasis. She had some improvement on initial treatment with sodium pamidronate and 4 days of high-dose dexamethasone. She then began treatment with Velcade/Revlimid/dexamethasone on 11/16/2017. The Revlimid was initiated at a reduced dosage of 10 mg daily on a 21/28 day schedule with the Velcade and dexamethasone administered weekly. At that time she also received an infusion of zoledronic acid. Her 1st cycle of treatment was complicated by a febrile illness and diarrhea. She also developed pancytopenia with worsening anemia, requiring PRBC transfusion. It was uncertain to what extent her problems may have been due to the treatment or to the underlying myeloma. Her Revlimid was put on hold at day 4. She was then able to continue treatment with Velcade and dexamethasone. As of 04/04/2018 she began her 6th cycle of treatment. Her repeat serum protein electrophoresis on 05/01/2018 showed 2 monoclonal bands which together quantitated at 0.21 g/dL. The serum free light chain assay showed normal kappa/lambda ratio. Her hemoglobin was stable at 11.2 g. As of her follow-up visit on 05/02/2018 she was still having some fatigue, but she otherwise appeared stable clinically. She then began maintenance Revlimid at 5 mg daily. It was put on hold as of 05/29/2018 due to worsening skin eruption. The skin eruption subsequently did resolve, though gradually. As of her follow-up visit in June 2018 she had only a very small amount of residual M protein, and she appeared stable clinically. Given the side effects she had experienced with her treatment, I opted to just follow her on observation/expectant management. During her subsequent follow-up her clinical status initially remained stable. However, as of her follow-up in March 2019 there had been a slight drop in her hemoglobin/hematocrit levels, and her protein electrophoresis studies showed a significant increase in her M protein, to 2.11 g/dL, and a significant increase in the kappa free light chain, to 105.21 mg/L, with the kappa/lambda ratio elevated at 8.65. This was obviously consistent with progression of the myeloma. On 05/14/2019 she began a trial of second line therapy with daratumumab in combination with carfilzomib and dexamethasone. Following her day 2 treatment she required hospitalization for acute respiratory distress/pulmonary edema. Her clinical course was complicated by acute renal injury and thrombocytopenia. She did have a good recovery. Following hospitalization April she did show gradual improvement in her performance status. However, her laboratory studies now are showing further progression of the myeloma. She did have PET CT imaging at [facility] on 08/29/2019. Reported no evidence of osseous or soft tissue tumor involvement. There were arthritic changes present in the musculoskeletal area particularly in the left hip. Hypertrophic changes were present in the spine. There was mild increase of metabolic activity in the right scapular coracoid process base with a maximum SUV of 2.7 with no obvious sclerotic or lytic change. Soft tissue inflammatory changes were present in both shoulder joints. Dr. Muñoz has offered her third line treatment with a combination of pomalidomide, Ninlaro and dexamethasone. She does not need a venous access device at this time as all of these agents are oral. She is here today to begin her first cycle. Plan: 1. Proceed with Pomalidomide 3 mg daily days 1 through 21 Ninlaro 4 mg days 1, 8 and 15 Dexamethasone 20 mg days 1, 8, 15 and 22 2. She may use Compazine and Lorazepam and Zofran if needed at home for antiemetics. 3. Labs from September 12, 2019 were reviewed in detail and discussed with Ms. Red and a copy was given to her. White count 5.0, hemoglobin 9.7 platelets 153,000 ANC is 2100. Creatinine 0.8 calcium 10.6 ALT 18 AST is 35 alk phos was 72 random glucose was 112. Her myeloma labs are pending at the time of her visit. 4. We will plan for weekly CBCs and CMP. 5. We will plan for follow-up in 2 weeks at the [place] office. If she feels good she may cancel that appointment. 6. We will plan to see her back in 1 month at the [facility] clinic with CBC CMP, QUIGGS, kappa lambda free light chains and SPEP with SARA. 7. I did request a TSH be added to blood in the labs. For evaluation of fatigue, hair loss, weight loss and history of hyperthyroidism. 8. Mrs. Red was instructed to avoid grapefruit products and [place] oranges with the Ninlaro and pomalidomide. 9. She was also encouraged to contact us in the interim should questions or problems arise. 10. Ms Red was informed of chemotherapy plan and specific drugs were discussed. We also discussed how chemotherapy works and identified common side effects including alopecia; myelosuppression-including neutropenia, anemia, thrombocytopenia; peripheral neuropathy; fatigue; nausea; diarrhea; constipation; bleeding or bruising; skin changes-rash/dryness; mouth sores; drug hypersensitivity/allergic reactions or anaphylaxis and increased risk of blood clots. They have also been informed how to contact the clinic with side effects or symptoms, including but not limited to fever greater than 100.4???, chills, sore throat, bleeding or bruising that is not explained or mouth sores, cough, nasal discharge, diarrhea, constipation, nausea and/or vomiting not relieved with medications on hand at home, as well as any other concern or question they may have. Our hours are 8:00 a.m. to 4:30 p.m. on Monday through and 8-12:00 on Monday. However, someone is litigation counsel 24 hours per day and they have been advised to contact the [facility] at if it is after hours. We have also discussed potential long-term side effects of chemotherapy including secondary cancers, infertility, pulmonary complications, cardiac complications, and again peripheral neuropathy. We have discussed that they certainly need to let us know before taking any antioxidants or herbal or further dietary supplements, as we are unsure of how these agents react with chemotherapy and we request that they avoid these products for now. They were informed that it is okay to take multivitamins at normal doses. They verbally state that they understand to take all medications as directed by their healthcare provider unless otherwise indicated. Instructions for oral care with baking soda and salt water rinses as well as a guide for use of [id number] medication were provided with the treatment plan. They have been given a written patient treatment plan, of which a copy is in the chart, as well as specific drug information. They have no questions and verbalized understanding and are willing to proceed with chemotherapy at this time. The majority of this visit was spent in face to face communication with this patient and/or his/her family in regards to plan of care, side effect identification and management. Signed By: Otto Sue-, AOCNP Kris Muñoz MD <<Signature on File>>
== END 2019-09-12 12:01 | disposition home or self-care (01) ==
LOC: ONCMED 12:04
PROVIDERS: PCP Family Medicine; Visit Provider Nurse Practitioner
DX: C90.00 Multiple myeloma not having achieved remission (principal); R53.83 Other fatigue; L65.9 Nonscarring hair loss, unspecified; R63.4 Abnormal weight loss; E03.9 Hypothyroidism, unspecified; E11.42 Type 2 diabetes mellitus with diabetic polyneuropathy; M19.90 Unspecified osteoarthritis, unspecified site; I10 Essential (primary) hypertension; Z51.81 Encounter for therapeutic drug level monitoring; Z79.899 Other long term (current) drug therapy; Z68.27 Body mass index [BMI] 27.0-27.9, adult; Z87.442 Personal history of urinary calculi; Z79.84 Long term (current) use of oral hypoglycemic drugs
CPT/HCPCS: 36415; 80053; 82784; 83883; 84155; 84165; 84443; 85025; 99214

== ENCOUNTER 2019-09-30 13:54 | Outpatient (CLI) | payer MEDICARE, SELFPAY ==
--- NOTE | 2019-10-04 23:45 | ONC FU_ITS ---
Noa Olvera Patient Note Patient: Alta Red Unit #: [id number]: [id number] Dictated By: Otto SueDate of Visit: Sep 30, 2019 Onc MED Follow-Up/Prog Note Chief Complaint: Myeloma. History of Present Illness: Mrs Red is an 83 year-old woman with IgG kappa myeloma. She had presented to Dr. Nieto on 10/24/2017 with complaints of dizziness/lightheadedness, fatigue, and anorexia. She reported that at times she felt like passing out and having to lie down. She reported having problems with memory and she complained that she had been sleeping a lot. Her CBC showed low hemoglobin at 8.8 g, white blood cell count borderline at 4300 and platelet count mildly decreased at 103,000. Her comprehensive metabolic profile showed elevated BUN and creatinine at 23 and 1.42 mg/dL and significantly elevated serum calcium at 14.5 mg/dL with albumin low at 2.5 g/dL. The calculated serum globulin was significantly elevated at 7.9 g/dL. Bone marrow aspiration/biopsy on 10/27/2017 showed hypercellular marrow with 63% plasma cells, consistent with myeloma. At that time, she was given an infusion of sodium pamidronate for the hypercalcemia, and she also was given dexamethasone 40 mg daily for 4 days. Skeletal survey on 10/27/2017 showed evidence of diffuse bone demineralization but without evidence of large osteolytic lesion. Subcentimeter lucent foci in the Femara bilaterally were felt to be consistent with osteoporosis, myelomatous lesions, or metastatic disease. Serum protein electrophoresis and 11/20/2017 showed IgG kappa paraprotein quantitating at 4.1 g/dL. The free light chain assay showed elevated free kappa light chain at 228.24 mg/L with elevated kappa/lambda ratio at 17.40. She returned on 11/16/2017 to begin treatment with Velcade/Revlimid/dexamethasone. Dr Muñoz opted to use a weekly Velcade regimen on a 21/28 day schedule. Due to her age and renal function, the Revlimid was initiated at a reduced dosage of 10 mg daily for 21 days. The dexamethasone was reduced to 20 mg weekly. At that time, her calcium had become elevated again at 10.3 mg/dL with albumin 2.2 g/dL. Her renal function had improved with creatinine down to 1.0 mg/dL. As such, she was given zoledronic acid 3.5 mg by IV infusion. On 11/20/2017 she came in with a 2-day history of fever and chills. A specific source of infection was not identified other than her chest x-ray was suspicious for possible pneumonia. She was treated empirically with Levaquin, it was opted to put her Revlimid on hold, as she also was having diarrhea at that point. Her follow-up CBC on 11/23/2017 showed further decline in hemoglobin to 6.4 g, and the following day she was transfused 2 units of PRBC. She did receive her day 8 Velcade, and she was able to return for day 15 Velcade on 11/29/2017. Hemoglobin at that point was adequate at 9.9 g. She then continued her 2nd cycle on 12/13/2017 with the Revlimid omitted. The Velcade was again administered weekly for 3 weeks, and the dexamethasone was changed to 20 mg twice weekly. A repeat protein electrophoresis on 12/25/2017 showed significant improvement with the M protein quantitating at 0.73 g/dL. She then continued with cycle 3 of Velcade/dexamethasone on 01/11/2018, with cycle 4 on 02/07/2018, with cycle 5 on 03/06/2018, and with cycle 6 on 04/04/2018. Her repeat serum protein electrophoresis on 05/01/2018 showed 2 monoclonal protein bands which together quantitated at 0.21 g/dL compared to 0.31 g/dL on 03/06/2018. The serum free light chain assay showed normal kappa light chain at 1.28 mg/dL and normal lambda light chain at 1.52 mg/dL with the kappa/lambda ratio normal at 0.8421. She was seen for a follow-up visit on 05/02/2018, and she then began maintenance Revlimid at 5 mg daily. As of 05/29/2018 the Revlimid was put on hold due to worsening skin eruption. The skin eruption had initially continued to worsen somewhat after stopping the Revlimid, but it then gradually resolved. Dr uMñoz had seen her for a follow-up visit on 07/17/2018. At that point she had only minimal residual M protein. She appeared stable clinically, and given the side effects she experienced with her treatment, it was opted to just follow her on observation/expectant management. Her other medical illnesses include hypertension, type II diabetes with peripheral neuropathy, and degenerative arthritis. She is a nonsmoker. INTERIM HISTORY: As of March 2019 there was a significant increase in her M protein and in her kappa free light chain. She had become mildly anemic. It was clear at that point that her myeloma was progressing, and we opted to proceed to a trial of second line therapy with daratumumab in combination with carfilzomib and dexamethasone. She began her day 1 treatment on 05/14/2019, which she tolerated well. However, following her day 2 treatment she was admitted to the hospital with acute respiratory distress/flash pulmonary edema. Her clinical course was complicated by non-ST elevation myocardial infarction, acute renal injury, and thrombocytopenia. She did have a good recovery. She did have a negative COVID 19 test during that hospitalization. She has remained off treatment. Mrs. Red was seen in July by Dr. Muñoz and he recommended that she pursue further treatment with pomalidomide and Ninlaro. After appealing to insurance. Her treatment plan has been approved. She is here today for follow-up. She did have PET CT imaging at [facility] on 08/29/2019. Reported no evidence of osseous or soft tissue tumor involvement. There were arthritic changes present in the musculoskeletal area particularly in the left hip. Hypertrophic changes were present in the spine. There was mild increase of metabolic activity in the right scapular coracoid process base with a maximum SUV of 2.7 with no obvious sclerotic or lytic change. Soft tissue inflammatory changes were present in both shoulder joints. Mrs Red began treatment with pomalidomide, ninlaro and dexamethasone on 09/13/2019. She did call into the office on 09/16/2019 with fever and not feeling well in general. The pomalidomide was placed on hold and it remains on hold. She has taken the ninlaro weekly. Her fever resolved on its own with no evidence of infection. She denies cough or shortness of breath. She denies any chest pain or palpitations. She states her appetite is good for the most part, but it is noted that she has lost 5 pounds since her visit her on the August,. She states she has been sleeping alot over the last two days. She continues to have hip pain and limited mobility due to her hip pain. She has an appointment with Dr Mata in [place] on 10/08/2019 for discussion for her hip replacement. Her ECOG is 2 today due to the hip pain. Past Medical History: Degenerative arthritis Hypertension Hypothyroidism Nephrolithiasis Peripheral neuropathy Type II diabetes Past Surgical History: Breast reduction Excision of Adler's neuroma x 3 Hysterectomy Left bunionectomy Lithotripsy for renal stones in 9 and in 1989 Tonsillectomy Flu shot in 2018 D&C in 2011 Hysterectomy without oophorectomy in 2011 Right total hip arthroplasty in 2011 Laparoscopic cholecystectomy in 1991 Breast reduction in 1983 Cholecystectomy in 1982 Thyroidectomy in 1959 Allergies: EKG patches, Lisinopril, and revlimd. Medications: Acetaminophen Tablet Oral PRN AmLODIPine Besylate 1 Tablet (of 10 mg) Oral every am Aspirin 1 (325 mg) Tablet Oral daily Atorvastatin Calcium 1 Tablet (of 20 mg) Oral daily Grass Fed Beef 3 (500 mg) Tablet Oral b.i.d. Isosorbide Mononitrate 1 Tablet (of 10 mg) Oral daily Meloxicam 1 Tablet (of 15 mg) Oral daily MetFORMIN HCl 0.5 Tablet (of 500 mg) Oral daily Metoprolol Succinate ER 1 Tablet (of 25 mg) Tablet SR 24 HR Oral daily Multivitamin Women 50+ 1 Tablet Oral daily Pantoprazole Sodium 1 Tablet (of 20 mg) Tablet, enteric coated Oral daily PreserVision AREDS 2 Tablet Oral daily Senna S 1 - 2 Tablet (of 8.6-50 mg) Oral daily Synthroid 1 Tablet (of 150 mcg) Oral daily Family History: Ms. Red's mother at age 83: congestive heart failure. Ms. Red's father is alive. Ms. Red has 1 brother who is alive. She has 2 sisters: 2 alive. Father is still living at age 103. Mother with congestive heart failure at age 83. She also had been treated for breast cancer, renal cell cancer, and uterine cancer. One brother and two sisters are in good health. Social History: Ms. Red is and she is retired. Ms. Red has never smoked. She has no history of drinking. She is a nonsmoker. She does not drink alcohol. Review Of Symptoms: Constitutional Denies fevers, chills, night sweats, excessive fatigue. She states she has noticed increased fatigue. Allergic/Immunologic No reactions. Eyes Denies significant visual changes. No diplopia. No amaurosis. ENMT Denies changes in hearing, sore throat, mouth sores, difficulty or changes in swallowing ability, and/or sinus drainage. Endocrine No diabetes, thyroid disease or hormone replacement. Denies hot flashes or night sweats. Hematologic/Lymphatic Denies easy bruising or bleeding. The patient denies any tender or palpable lymph nodes. Respiratory Stable dyspnea on exertion, but denies chest pain, cough or hemoptysis. Denies orthopnea. Cardiovascular Denies anginal chest pain, palpitations or orthopnea. Gastrointestinal Denies nausea, vomiting, diarrhea, GI bleeding, or constipation. Denies change in bowel habits and/or stool color, or early satiety. Genitourinary (F) No hematuria, hesitancy, incontinence, vaginal bleeding, discharge or other problems with urination. Musculoskeletal She is having left shoulder left jaw left knee pain she states the jaw pain is like is hard to chew a hamburger.. She is also wondering when she could have hip surgery. She is seen by Dr. Díaz and Dr Mata in [place]. Integumentary Denies chronic rashes, inflammation, ulcerations or skin changes. Neurologic Denies headache, blurred vision, and no areas of focal weakness or numbness. Normal slow gait. No sensory problems. Psychiatric Denies insomnia, depression, marylin or mood swings. Vital Signs: Performed on Sep 30, 2019 14:08 Height - 66.00 in Weight - 162.4 lbs (LOW) BSA - 1.83 sq.m BMI - 26.21 Temperature - 98.6 F Pulse - 65 /min Respiration - 19 /min BP - 139/58 mm(hg) O2 Sat - 96 % Pain - 0,2 - Ambulatory/capable of all self-care, unable to perform any work activities. Up and about more than 50% of waking hours. (ECOG) Physical Examination: Constitutional Alert, oriented, no acute distress. Skin pink, warm and dry. Head Normocephalic; atraumatic. Eyes Conjunctivae and sclerae are clear and without icterus. Pupils are reactive and equal. Neck Supple without masses or thyromegaly. No jugular venous distension. Hematologic/Lymphatic No petechiae or purpura. No tender or palpable lymph nodes in the cervical or supraclavicular areas. Respiratory Lungs are clear to auscultation without rhonchi or wheezing. Cardiovascular Regular rate and rhythm of heart without murmurs,clicks, gallops or rubs. Abdomen Non-tender, non-distended, no masses, ascites. Back/Spine Non-tender to palpation. Extremities No visible deformities, no cyanosis, clubbing or edema. Musculoskeletal No tenderness or swelling, normal range of motion without obvious weakness. Integumentary No rashes or lesions.-see above Neurologic No sensory or motor deficits, normal cerebellar function, in wheelchair today. Psychiatric Alert and oriented times three. Coherent speech. Verbalizes understanding of our discussions today. Laboratory:Test performed on Oct 03, 2019 11:46 Glucose 169 mg/dL BUN 26 mg/dL Creatinine 1.12 mg/dL Cr Clearance (Est) 44.26 mL/min Sodium 134 mmol/L Potassium 4.0 mmol/L Chloride 103 mmol/L CO2 20 mmol/L Calcium 10.4 mg/dL Protein, Total 8.9 g/dL Albumin 2.9 g/dL Bilirubin, Total 0.4 mg/dL Alkaline Phosphatase 70 IU/L AST (SGOT) 34 IU/L ALT (SGPT) 20 IU/L Test performed on Sep 26, 2019 11:07 WBC 4.7 10^9/L RBC 3.31 10^12/L HGB 9.9 g/dL HCT 30.8 % MCV 93.1 fl MCH 29.9 pg MCHC 32.1 g/dL RDW 16.7 % Platelet Count 111 10^9/L MPV 10.4 fL Neutrophils (Gran) 1.39 10^9/L Lymphocytes 2.30 10^9/L Monocytes 0.80 10^9/L Eosinophils 0.16 10^9/L Basophils 0.02 10^9/L Manual Lymphocytes 49 % Manual Monocytes 17 % Manual Eosinophils 3 % Manual Basophils 0 % Test performed on Sep 12, 2019 12:18 Anion Gap 12.6 Globulin 6.1 g/dL Neutrophil % 36.2 % Lymphocyte % 48.5 % Monocyte % 11.5 % Eosinophil % 3.3 % Basophils % 0.3 % NRBC % 0 % IgA < 50 mg/dL IgG 5604 mg/dL IgM < 25 mg/dL Test performed on Sep 12, 2019 12:15 TSH 0.06 uIU/mL Test performed on Aug 06, 2019 09:36 Albumin, SPE 3.54 g/dL Marlette / Lambda Ratio 28.97 Absolute Value Lambda Light Chain 5.86 Marlette Light Chain 169.77 [id number] 0.24 g/dL [id number] 0.69 g/dL Beta Globulin 0.71 g/dL Gamma Globulin 2.82 g/dL SPE Interpretation Significant increase in monoclonal proteinemia since prior study Test performed on Apr 09, 2019 10:09 M-David 2.11 g/dL Test performed on Apr 09, 2019 09:52 Sed Rate 56 mm/hr Lambda Light Chain (Quant) 12.17 mg/dL Marlette Light Chain (Quant) 105.21 mg/dL Impression: 1. Patient with IgG kappa myeloma. Her bone marrow aspiration/biopsy on 10/27/2017 was hypercellular with 63% plasma cells. 2. She had anemia, renal dysfunction, and symptomatic hypercalcemia at initial presentation. Her skeletal survey showed diffuse bone demineralization, but without evidence of any large osteolytic lesions. Her other medical illnesses include: 3. Hypertension. 4. Type II diabetes. 5. Peripheral neuropathy. 6. Degenerative arthritis. 7. She has a history of nephrolithiasis. She had some improvement on initial treatment with sodium pamidronate and 4 days of high-dose dexamethasone. She then began treatment with Velcade/Revlimid/dexamethasone on 11/16/2017. The Revlimid was initiated at a reduced dosage of 10 mg daily on a 21/28 day schedule with the Velcade and dexamethasone administered weekly. At that time she also received an infusion of zoledronic acid. Her 1st cycle of treatment was complicated by a febrile illness and diarrhea. She also developed pancytopenia with worsening anemia, requiring PRBC transfusion. It was uncertain to what extent her problems may have been due to the treatment or to the underlying myeloma. Her Revlimid was put on hold at day 4. She was then able to continue treatment with Velcade and dexamethasone. As of 04/04/2018 she began her 6th cycle of treatment. Her repeat serum protein electrophoresis on 05/01/2018 showed 2 monoclonal bands which together quantitated at 0.21 g/dL. The serum free light chain assay showed normal kappa/lambda ratio. Her hemoglobin was stable at 11.2 g. As of her follow-up visit on 05/02/2018 she was still having some fatigue, but she otherwise appeared stable clinically. She then began maintenance Revlimid at 5 mg daily. It was put on hold as of 05/29/2018 due to worsening skin eruption. The skin eruption subsequently did resolve, though gradually. As of her follow-up visit in June 2018 she had only a very small amount of residual M protein, and she appeared stable clinically. Given the side effects she had experienced with her treatment, I opted to just follow her on observation/expectant management. During her subsequent follow-up her clinical status initially remained stable. However, as of her follow-up in March 2019 there had been a slight drop in her hemoglobin/hematocrit levels, and her protein electrophoresis studies showed a significant increase in her M protein, to 2.11 g/dL, and a significant increase in the kappa free light chain, to 105.21 mg/L, with the kappa/lambda ratio elevated at 8.65. This was obviously consistent with progression of the myeloma. On 05/14/2019 she began a trial of second line therapy with daratumumab in combination with carfilzomib and dexamethasone. Following her day 2 treatment she required hospitalization for acute respiratory distress/pulmonary edema. Her clinical course was complicated by acute renal injury and thrombocytopenia. She did have a good recovery. Following hospitalization April she did show gradual improvement in her performance status. However, her laboratory studies now are showing further progression of the myeloma. She did have PET CT imaging at [facility] on 08/29/2019. Reported no evidence of osseous or soft tissue tumor involvement. There were arthritic changes present in the musculoskeletal area particularly in the left hip. Hypertrophic changes were present in the spine. There was mild increase of metabolic activity in the right scapular coracoid process base with a maximum SUV of 2.7 with no obvious sclerotic or lytic change. Soft tissue inflammatory changes were present in both shoulder joints. Dr. Muñoz has offered her third line treatment with a combination of pomalidomide, Ninlaro and dexamethasone. She does not need a venous access device at this time as all of these agents are oral. She began her first cycle on 09/13/2019. She was unable to tolerate the pomalidomide after 3 days due to fever and generalized performance status decline. This has not been rechallenged. She did complete day 1, 8 & 15 of the Ninlaro and steroid. Plan: 1. HOLD planned treatment of Pomalidomide 3 mg daily days 1 through 21 and Ninlaro 4 mg days 1, 8 and 15 (she was able to complet 1 full cycle of the Ninlaro). 2. Change Dexamethasone from 20 mg days 1, 8, 15 and 22 to 40 mg , , Monday and Monday. This will be single agent treatment for her myeloma for now. 2. She may pursue hip replacement surgery at this time. Hopefully if her mobililty is improved with the hip replacement, she will feel better overall and possibly tolerate myeloma treatment better in the future. 3. Labs from September 30, 2019 were reviewed in detail and discussed with Ms. Red and a copy was given to her. White count 4.7, hemoglobin 9.9 platelets 111,000 ANC is 1400. Creatinine 1.0 calcium 10.9 ALT 51 AST is 34 alk phos was 69 random glucose was 126. Her myeloma labs were not drawn with this visit as this was a scheduled 2 week followup from starting the pomalidomide, Ninlaro and dex regimen. 4. We did discuss that using the dexamethasone at high doses may cause insomnia, hyperglycemia, GI distress, mood changes amongst others. She will call us if she has any concerns with the side effects. 6. We will plan to see her back as scheduled in 2 weeks at the [facility] with CBC CMP, QUIGGS, kappa lambda free light chains and SPEP with SARA. Dr Muñoz will discuss with her further the plan for hip replacement and then further treatment for her myeloma. He has mentioned that Melphalon and Prednisone/Dexaemthasone may be an option. 7. She was also encouraged to contact us in the interim should questions or problems arise. 8. She was given refills on the Bactrim and acyclovir. She will need to remain on them due to the high dose steroid use. Signed By: Otto Sue-, [facility] Kris Muñoz MD <<Signature on File>>
== END 2019-09-30 13:55 | disposition home or self-care (01) ==
LOC: ONCMED 13:56
PROVIDERS: PCP Family Medicine; Visit Provider Nurse Practitioner
DX: C90.00 Multiple myeloma not having achieved remission (principal); Z79.899 Other long term (current) drug therapy; Z79.52 Long term (current) use of systemic steroids; Z79.2 Long term (current) use of antibiotics
CPT/HCPCS: 99214

== ENCOUNTER 2019-10-15 09:26 | Outpatient (CLI) | payer MEDICARE, SELFPAY ==
--- NOTE | 2019-10-21 16:10 | ONC FU_ITS ---
Dr. Muñoz Patient Follow-Up Note Patient: Alta Red Unit #: [id number]: 1935 Dicatated By: Kris Muñoz M.D.Date of Visit:Oct 15, 2019 Onc Med Follow-up/Prog Note Chief Complaint: Myeloma. History of Present Illness: This is an 83 year-old woman with IgG kappa myeloma. She had presented to Dr. Nieto on 10/24/2017 with complaints of dizziness/lightheadedness, fatigue, and anorexia. She reported that at times she felt like passing out and having to lie down. She reported having problems with memory and she complained that she had been sleeping a lot. Her CBC showed low hemoglobin at 8.8 g, white blood cell count borderline at 4300 and platelet count mildly decreased at 103,000. Her comprehensive metabolic profile showed elevated BUN and creatinine at 23 and 1.42 mg/dL and significantly elevated serum calcium at 14.5 mg/dL with albumin low at 2.5 g/dL. The calculated serum globulin was significantly elevated at 7.9 g/dL. Bone marrow aspiration/biopsy on 10/27/2017 showed hypercellular marrow with 63% plasma cells, consistent with myeloma. At that time, she was given an infusion of sodium pamidronate for the hypercalcemia, and she also was given dexamethasone 40 mg daily for 4 days. Skeletal survey on 10/27/2017 showed evidence of diffuse bone demineralization but without evidence of large osteolytic lesion. Subcentimeter lucent foci in the [place] bilaterally were felt to be consistent with osteoporosis, myelomatous lesions, or metastatic disease. Serum protein electrophoresis and 11/20/2017 showed IgG kappa paraprotein quantitating at 4.1 g/dL. The free light chain assay showed elevated free kappa light chain at 228.24 mg/L with elevated kappa/lambda ratio at 17.40. She returned on 11/16/2017 to begin treatment with Velcade/Revlimid/dexamethasone. I opted to use a weekly Velcade regimen on a 21/28 day schedule. Due to her age and renal function, the Revlimid was initiated at a reduced dosage of 10 mg daily for 21 days. The dexamethasone was reduced to 20 mg weekly. At that time, her calcium had become elevated again at 10.3 mg/dL with albumin 2.2 g/dL. Her renal function had improved with creatinine down to 1.0 mg/dL. As such, she was given zoledronic acid 3.5 mg by IV infusion. On 11/20/2017 she came in with a 2-day history of fever and chills. A specific source of infection was not identified other than her chest x-ray was suspicious for possible pneumonia. She was treated empirically with Levaquin, I did opt to put her Revlimid on hold, as she also was having diarrhea at that point. Her follow-up CBC on 11/23/2017 showed further decline in hemoglobin to 6.4 g, and the following day she was transfused 2 units of PRBC. She did receive her day 8 Velcade, and she was able to return for day 15 Velcade on 11/29/2017. Hemoglobin at that point was adequate at 9.9 g. She then continued her 2nd cycle on 12/13/2017 with the Revlimid omitted. The Velcade was again administered weekly for 3 weeks, and the dexamethasone was changed to 20 mg twice weekly. A repeat protein electrophoresis on 12/25/2017 showed significant improvement with the M protein quantitating at 0.73 g/dL. She then continued with cycle 3 of Velcade/dexamethasone on 01/11/2018, with cycle 4 on 02/07/2018, with cycle 5 on 03/06/2018, and with cycle 6 on 04/04/2018. Her repeat serum protein electrophoresis on 05/01/2018 showed 2 monoclonal protein bands which together quantitated at 0.21 g/dL compared to 0.31 g/dL on 03/06/2018. The serum free light chain assay showed normal kappa light chain at 1.28 mg/dL and normal lambda light chain at 1.52 mg/dL with the kappa/lambda ratio normal at 0.8421. She was seen for a follow-up visit on 05/02/2018, and she then began maintenance Revlimid at 5 mg daily. As of 05/29/2018 the Revlimid was put on hold due to worsening skin eruption. The skin eruption had initially continued to worsen somewhat after stopping the Revlimid, but it then gradually resolved. I had seen her for a follow-up visit on 07/17/2018. At that point she had only minimal residual M protein. She appeared stable clinically, and given the side effects she experienced with her treatment, I opted to just follow her on observation/expectant management. Her other medical illnesses include hypertension, type II diabetes with peripheral neuropathy, and degenerative arthritis. She is a nonsmoker. INTERIM HISTORY: As of March 2019 there was a significant increase in her M protein and in her kappa free light chain. She had become mildly anemic. It was clear at that point that her myeloma was progressing, and we opted to proceed to a trial of second line therapy with daratumumab in combination with carfilzomib and dexamethasone. She began her day 1 treatment on 05/14/2019, which she tolerated well. However, following her day 2 treatment she was admitted to the hospital with acute respiratory distress/flash pulmonary edema. Her clinical course was complicated by non-ST elevation myocardial infarction, acute renal injury, and thrombocytopenia. She did have a good recovery, and she was then followed on observation/expectant management. As of July 2019 her M protein had increased significantly, to 2.65 g/dL. At that point she had become mildly anemic, hemoglobin 10.4 g. Her renal function, though, remained normal with creatinine 0.78 mg/dL. Restaging PET/CT on 08/29/2019 was felt to be likely a negative examination with no evidence for osseous or soft tissue tumor involvement. There were findings which were felt to most likely reflect prominent arthritic changes. With the significant increase in her M protein, she started 3rd line treatment with pomalidomide in combination with ixazomib and dexamethasone, cycle 1 beginning on 09/13/2019. The pomalidomide was put on hold due to side effects, the most significant being fatigue, fever, and just not feeling good generally. As of her follow-up visit on 09/30/2019 the ixazomib was also put on hold. She then continued treatment with dexamethasone 20 mg 4 days a week. She is seen for a scheduled visit. Her main complaint is that she has been having increasing pain associated with degenerative arthritis in her left hip. It is severe enough that it has been limiting her activity. She has been seeing an orthopedic surgeon, and she is scheduled to undergo left total hip arthroplasty on 29 October. Her energy is up and down. She is still able to do some light work. ECOG score is 1. She says her appetite is a tiny bit better, but not good. She has not had fever. She has had some sweating, attributable to the hot weather. She does not complain of shortness of breath, cough, or chest pain. She has no GI complaints other than some mild constipation her bowels move about every 3 days. She has bladder incontinence. She also has some joint pain in her knees. She has normal numbness/tingling in her feet. Medications: Acetaminophen Tablet Oral PRN, AmLODIPine Besylate 1 Tablet (of 10 mg) Oral every am, Aspirin 1 (325 mg) Tablet Oral daily, Atorvastatin Calcium 1 Tablet (of 20 mg) Oral daily, Grass Fed Beef 3 (500 mg) Tablet Oral b.i.d., Isosorbide Mononitrate 1 Tablet (of 10 mg) Oral daily, Melatonin 1 - 2 Tablet (of 10 mg) Oral at bedtime, Meloxicam 1 Tablet (of 15 mg) Oral daily, MetFORMIN HCl 0.5 Tablet (of 500 mg) Oral daily, Metoprolol Succinate ER 1 Tablet (of 25 mg) Tablet SR 24 HR Oral daily, Multivitamin Women 50+ 1 Tablet Oral daily, Pantoprazole Sodium 1 Tablet (of 20 mg) Tablet, enteric coated Oral daily, PreserVision AREDS 2 Tablet Oral daily, Senna S 1 - 2 Tablet (of 8.6-50 mg) Oral daily, Synthroid 1 Tablet (of 150 mcg) Oral daily Allergies: Carfilzomib, Daratuzumab, EKG patches, Lisinopril, Pomalidomide, and revlimd. Review of Systems: Constitutional - Her energy has been up and down. She is able to do light house work. Her appetite is slightly better and her weight is up a couple pounds. No fevers. She has some sweating, attributed to the hot weather. ECOG score is 1, ENMT - No sinus congestion/drainage. She had a few nosebleeds, now resolved. No mouth sores. No sore throat or difficulty swallowing, Hematologic/Lymphatic - No abnormal bruising, Respiratory - No shortness of breath. No cough. No pleuritic pain or hemoptysis, Cardiovascular - No angina pain. No palpitations, Gastrointestinal - No nausea or vomiting. No heartburn or acid reflux. She has some constipation. No blood in the stool or black stools, Genitourinary (F) - No dysuria or hematuria. No urinary frequency. She has incontinence, Musculoskeletal - She has left hip pain, and she is scheduled for hip surgery with Dr. Mata in a few weeks. She also has chronic knee pain, Integumentary - No skin complications, Neurologic - No headache. She has some dizziness. She has numbness/tingling in her feet. No other focal neurologic symptoms, Psychiatric - No anxiety or depression. She has difficulty sleeping with the dexamethasone. Vital Signs: Performed on Oct 15, 2019 09:31 Height - 66.00 in Weight - 164 lbs (HIGH) BSA - 1.84 sq.m BMI - 26.47 Temperature - 98.3 F (LOW) Pulse - 71 /min Respiration - 16 /min BP - 138/58 mm(hg) O2 Sat - 99 % Pain - 4 Physical Examination: Constitutional - She looks good generally, Eyes - Sclerae nonicteric. Conjunctivae clear, ENMT - No lesions noted in the oral cavity, Hematologic/Lymphatic - No cervical, clavicular, or axillary adenopathy, Respiratory - Lungs are clear with good air movement bilaterally, Cardiovascular - Heart rhythm is regular. There is a II/ systolic murmur. There is no gallop or rub noted, Abdomen - Soft. Liver and spleen are not enlarged. There is no abdominal mass or ascites noted and there is no inguinal adenopathy, Extremities - No edema, Neurologic - No focal neurologic deficits noted. Lab/Imaging: Test performed on Oct 14, 2019 16:10 TSH 0.79 uU/mL Test performed on Oct 10, 2019 14:01 Glucose 196 mg/dL Protein, Total 8.6 g/dL Albumin, SPE 3.19 g/dL BUN 27 mg/dL Creatinine 0.94 mg/dL Cr Clearance (Est) 52.73 mL/min Sodium 137 mmol/L Potassium 4.3 mmol/L Chloride 105 mmol/L CO2 22 mmol/L Calcium 10.2 mg/dL Albumin 3.0 g/dL Bilirubin, Total 0.5 mg/dL Alkaline Phosphatase 105 IU/L AST (SGOT) 34 IU/L ALT (SGPT) 28 IU/L WBC 8.7 10^9/L RBC 3.12 10^12/L HGB 9.7 g/dL HCT 29.3 % MCV 93.9 fl MCH 31.1 pg MCHC 33.1 g/dL RDW 18.8 % Platelet Count 201 10^9/L MPV 11.6 fL Neutrophils (Gran) 6.63 10^9/L Lymphocytes 1.58 10^9/L Monocytes 0.31 10^9/L Eosinophils 0.05 10^9/L Manual Lymphocytes 18 % Manual Monocytes 4 % Manual Eosinophils 1 % Manual Basophils 0 % IGA 12 mg/dL IGG 4666 mg/dL IGM 14 mg/dL [place] / Lambda Ratio 149.84 Absolute Value Lambda Light Chain 1.41 [place] Light Chain 211.27 Omjwq-8-[id number] 0.23 g/dL Aumfx-3-pjcbhdrg 0.58 g/dL Beta Globulin 4.57 g/dL Gamma Globulin 0.03 g/dL SPE Interpretation Significant increase in monoclonal proteinemia since prior study Impression: 1. Patient with IgG kappa myeloma. Her bone marrow aspiration/biopsy on 10/27/2017 was hypercellular with 63% plasma cells. 2. She had anemia, renal dysfunction, and symptomatic hypercalcemia at initial presentation. Her skeletal survey showed diffuse bone demineralization, but without evidence of any large osteolytic lesions. Her other medical illnesses include: 3. Hypertension. 4. Type II diabetes. 5. Peripheral neuropathy. 6. Degenerative arthritis. 7. She has a history of nephrolithiasis. She had some improvement on initial treatment with sodium pamidronate and 4 days of high-dose dexamethasone. She then began treatment with Velcade/Revlimid/dexamethasone on 11/16/2017. The Revlimid was initiated at a reduced dosage of 10 mg daily on a 21/ day schedule with the Velcade and dexamethasone administered weekly. At that time she also received an infusion of zoledronic acid. Her 1st cycle of treatment was complicated by a febrile illness and diarrhea. She also developed pancytopenia with worsening anemia, requiring PRBC transfusion. I was uncertain to what extent her problems may have been due to the treatment or to the underlying myeloma. Her Revlimid was put on hold at day 4. She was then able to continue treatment with Velcade and dexamethasone. As of 04/04/2018 she began her 6th cycle of treatment. Her repeat serum protein electrophoresis on 05/01/2018 showed 2 monoclonal bands which together quantitated at 0.21 g/dL. The serum free light chain assay showed normal kappa/lambda ratio. Her hemoglobin was stable at 11.2 g. As of her follow-up visit on 05/02/2018 she was still having some fatigue, but she otherwise appeared stable clinically. She then began maintenance Revlimid at 5 mg daily. It was put on hold as of 05/29/2018 due to worsening skin eruption. The skin eruption subsequently did resolve, though gradually. As of her follow-up visit in June 2018 she had only a very small amount of residual M protein, and she appeared stable clinically. Given the side effects she had experienced with her treatment, I opted to just follow her on observation/expectant management. During her subsequent follow-up her clinical status initially remained stable. However, as of her follow-up in March 2019 there had been a slight drop in her hemoglobin/hematocrit levels, and her protein electrophoresis studies showed a significant increase in her M protein, to 2.11 g/dL, and a significant increase in the kappa free light chain, to 105.21 mg/L, with the kappa/lambda ratio elevated at 8.65. This was obviously consistent with progression of the myeloma. On 05/14/2019 she began a trial of second line therapy with daratumumab in combination with carfilzomib and dexamethasone. Following her day 2 treatment she required hospitalization for acute respiratory distress/pulmonary edema. Her clinical course was complicated by acute renal injury and thrombocytopenia. She did have a good recovery. Following hospitalization April she did show gradual improvement in her performance status. However, by July 2019 her M protein had increased significantly, to 2.65 g/dL. Her restaging PET/CT showed no obvious involvement with myeloma. However, she was mildly anemic, and with the increasing M protein she then proceeded to 3d line treatment with pomalidomide in combination with ixazomib and dexamethasone. She tolerated the pomalidomide very poorly, and it was stopped early into the first cycle. As of her follow-up visit on 09/30/2019 the ixazomib was also put on hold. She has since then continued treatment with dexamethasone. She has been having increasing pain associated with degenerative arthritis in her left hip. It is severe enough that it is limiting her activity, and she is scheduled now to undergo left total hip arthroplasty on 29 October. Plan: Her dexamethasone will be put on hold, and she will go ahead with the surgery as scheduled. I will see her again in 1 month, at which time I will plan to have her start a trial of therapy with melphalan/prednisone. Signed By: Kris Muñoz M.D. <<Signature on File>>
== END 2019-10-15 09:27 | disposition home or self-care (01) ==
LOC: ONCMED 09:26
PROVIDERS: PCP Family Medicine; Visit Provider Internal Medicine Medical Oncology
DX: C90.00 Multiple myeloma not having achieved remission (principal); I10 Essential (primary) hypertension; E11.42 Type 2 diabetes mellitus with diabetic polyneuropathy; M16.12 Unilateral primary osteoarthritis, left hip; Z87.442 Personal history of urinary calculi; Z79.52 Long term (current) use of systemic steroids
CPT/HCPCS: 99214

== ENCOUNTER 2019-10-22 08:45 | Outpatient (CLI) | payer MEDICARE, SELFPAY ==
[2019-10-22 09:14] VITALS: BMI 27.4
--- NOTE | 2019-10-22 09:14 | ECG_ITS ---
[facility] Test Date: 2019-10-22 Pat Name: Alta Red Department: Room: Gender: Female [employer] Developer: Shi Choudhary : 1935 Requested By: Kelly Parker Order Number: [id number] Reading MD: Kelly Parker M.D. Interpretive Statements NAME OF STUDY: LEXISCAN SESTAMIBI STRESS TEST INDICATION: Chest Pain, PROCEDURE: At the baseline, the EKG revealed sinus bradycardia with a poor R wave progression. Minimal left axis deviation. Possible old septal myocardial infarction. Some nonspecific T wave changes. The baseline blood pressure was 140/50 mm Hg with a heart rate of 58 beats/min. Lexiscan was infused over a period of 20 seconds. A total of 0.4 milligrams of Lexiscan was infused. The stress phase was continued for a total of 5 minutes. Heart rate at the end of the stress phase was 73 with a blood pressure 141/55. The EKG at the peak infusion revealed no significant changes. Sestamibi was injected 20 seconds after the Lexiscan infusion. Blood pressure at the end of the recovery phase was 133/49 with a heart rate of 70 per minute. CONCLUSION: 1. No significant EKG changes with the LexiScan infusion 2. No LexiScan induced chest pain or cardiac arrhythmia 3. Normal blood pressure and heart rate response 4. Sestamibi/sestamibi perfusion scan pending; see separate report. Electronically Signed On 10-23-2019 19:06:36 CDT by Kelly Parker M.D. [id number]
--- NOTE | 2019-10-22 09:14 | NMCV_ITS ---
NM maren perf SPECT r/s* [id number] Alta Red Age: 84 Gender: F : 1935 Exam Date: 10/22/2019 09:59 Ordering Phys: Kelly Parker MD ([email or web address]) Technologist: CORBY Lassiter Exam Location: [facility] Indications: ACUTE DIASTOLIC HEART FAILURE STRESS TEST Please see separate stress test report in [facility] for full findings IMAGE PROTOCOL Rest/Stress 1 Lexiscan Day Radiopharmaceutical Dose (mCi) Administration Site Administered by Rest: Tc-99m 10.9 IV CORBY Lassiter Sestamibi Stress:Tc-99m 33.0 IV CORBY Lassiter Sestamibi Rest: 22-Oct-2019 60 Discovery 630 Stress: 22-Oct-2019 30 Discovery 630 0.4mg Lexiscan. Supine position only as patient was unable to lay prone. SPECT RESULTS Technical Quality: Excellent Raw Data Analysis: Normal Image Corrections: No attenuation or motion correction applied Summed Stress Score: 4 Summed Rest Score: 1 Summed Difference Score: 3 PERFUSION FINDINGS A small area of decreased tracer uptake was noted in the mid inferolateral and apical lateral region. Significant reversibility was noted in this region. Small area of decreased uptake was noted in the mid and apical anterior wall region, with no significant reversibility. FUNCTIONAL RESULTS (calculated via Gated SPECT) Stress Image LV EF (%): 69 Stress EDV (mL):131 TID: 1.01 Stress ESV (mL):40 FUNCTIONAL FINDINGS: Segmental wall motion analysis revealing no gross wall motion normalities. IMPRESSIONS 1. Myocardial perfusion may revealing a small area of reversible defect in the mid inferolateral and apical lateral region, suggestive of ischemia in the distribution of the left circumflex artery. 2. Normal LV ejection fraction of 69%. 3. LV wall motion analysis revealing no gross wall motion normalities. 4. Normal LV volume. No similar previous studies are available for comparison Dr Kelly Parker MD [facility] (Electronically Signed) Final Date: 22 October 2019 18:08 S
[2019-10-22 10:48] VITALS: BP 148/56; PULSE 70
[2019-10-22] MEDS: regadenoson 0.4 Mg/5 ml Syringe IVP (10:48)
== END 2019-10-22 08:46 | disposition home or self-care (01) ==
LOC: CDL 08:46
PROVIDERS: PCP Family Medicine; Visit Provider Internal Medicine Cardiovascular Disease
DX: I50.31 Acute diastolic (congestive) heart failure (principal)
CPT/HCPCS: 78452; 93017; A9500; J2785

== ENCOUNTER 2019-11-19 11:44 | Outpatient (CLI) | payer MEDICARE, SELFPAY ==
--- NOTE | 2019-11-27 17:32 | ONC FU_ITS ---
Dr. Muñoz Patient Follow-Up Note Patient: Alta Red Unit #: [id number]: 1935 Dicatated By: Kirs Muñoz M.D.Date of Visit:Nov 19, 2019 Onc Med Follow-up/Prog Note Chief Complaint: Myeloma. History of Present Illness: This is an 84 year-old woman with IgG kappa myeloma. She had presented to Dr. Nieto on 10/24/2017 with complaints of dizziness/lightheadedness, fatigue, and anorexia. She reported that at times she felt like passing out and having to lie down. She reported having problems with memory and she complained that she had been sleeping a lot. Her CBC showed low hemoglobin at 8.8 g, white blood cell count borderline at 4300 and platelet count mildly decreased at 103,000. Her comprehensive metabolic profile showed elevated BUN and creatinine at 23 and 1.42 mg/dL and significantly elevated serum calcium at 14.5 mg/dL with albumin low at 2.5 g/dL. The calculated serum globulin was significantly elevated at 7.9 g/dL. Bone marrow aspiration/biopsy on 10/27/2017 showed hypercellular marrow with 63% plasma cells, consistent with myeloma. At that time, she was given an infusion of sodium pamidronate for the hypercalcemia, and she also was given dexamethasone 40 mg daily for 4 days. Skeletal survey on 10/27/2017 showed evidence of diffuse bone demineralization but without evidence of large osteolytic lesion. Subcentimeter lucent foci in the [place] bilaterally were felt to be consistent with osteoporosis, myelomatous lesions, or metastatic disease. Serum protein electrophoresis and 11/20/2017 showed IgG kappa paraprotein quantitating at 4.1 g/dL. The free light chain assay showed elevated free kappa light chain at 228.24 mg/L with elevated kappa/lambda ratio at 17.40. She returned on 11/16/2017 to begin treatment with Velcade/Revlimid/dexamethasone. I opted to use a weekly Velcade regimen on a 21/28 day schedule. Due to her age and renal function, the Revlimid was initiated at a reduced dosage of 10 mg daily for 21 days. The dexamethasone was reduced to 20 mg weekly. At that time, her calcium had become elevated again at 10.3 mg/dL with albumin 2.2 g/dL. Her renal function had improved with creatinine down to 1.0 mg/dL. As such, she was given zoledronic acid 3.5 mg by IV infusion. On 11/20/2017 she came in with a 2-day history of fever and chills. A specific source of infection was not identified other than her chest x-ray was suspicious for possible pneumonia. She was treated empirically with Levaquin, I did opt to put her Revlimid on hold, as she also was having diarrhea at that point. Her follow-up CBC on 11/23/2017 showed further decline in hemoglobin to 6.4 g, and the following day she was transfused 2 units of PRBC. She did receive her day 8 Velcade, and she was able to return for day 15 Velcade on 11/29/2017. Hemoglobin at that point was adequate at 9.9 g. She then continued her 2nd cycle on 12/13/2017 with the Revlimid omitted. The Velcade was again administered weekly for 3 weeks, and the dexamethasone was changed to 20 mg twice weekly. A repeat protein electrophoresis on 12/25/2017 showed significant improvement with the M protein quantitating at 0.73 g/dL. She then continued with cycle 3 of Velcade/dexamethasone on 01/11/2018, with cycle 4 on 02/07/2018, with cycle 5 on 03/06/2018, and with cycle 6 on 04/04/2018. Her repeat serum protein electrophoresis on 05/01/2018 showed 2 monoclonal protein bands which together quantitated at 0.21 g/dL compared to 0.31 g/dL on 03/06/2018. The serum free light chain assay showed normal kappa light chain at 1.28 mg/dL and normal lambda light chain at 1.52 mg/dL with the kappa/lambda ratio normal at 0.8421. She was seen for a follow-up visit on 05/02/2018, and she then began maintenance Revlimid at 5 mg daily. As of 05/29/2018 the Revlimid was put on hold due to worsening skin eruption. The skin eruption had initially continued to worsen somewhat after stopping the Revlimid, but it then gradually resolved. I had seen her for a follow-up visit on 07/17/2018. At that point she had only minimal residual M protein. She appeared stable clinically, and given the side effects she experienced with her treatment, I opted to just follow her on observation/expectant management. Her other medical illnesses include hypertension, type II diabetes with peripheral neuropathy, and degenerative arthritis. She is a nonsmoker. INTERIM HISTORY: As of March 2019 there was a significant increase in her M protein and in her kappa free light chain. She had become mildly anemic. It was clear at that point that her myeloma was progressing, and we opted to proceed to a trial of second line therapy with daratumumab in combination with carfilzomib and dexamethasone. She began her day 1 treatment on 05/14/2019, which she tolerated well. However, following her day 2 treatment she was admitted to the hospital with acute respiratory distress/flash pulmonary edema. Her clinical course was complicated by non-ST elevation myocardial infarction, acute renal injury, and thrombocytopenia. She did have a good recovery, and she was then followed on observation/expectant management. As of July 2019 her M protein had increased significantly, to 2.65 g/dL. At that point she had become mildly anemic, hemoglobin 10.4 g. Her renal function, though, remained normal with creatinine 0.78 mg/dL. Restaging PET/CT on 08/29/2019 was felt to be likely a negative examination with no evidence for osseous or soft tissue tumor involvement. There were findings which were felt to most likely reflect prominent arthritic changes. With the significant increase in her M protein, she started 3rd line treatment with pomalidomide in combination with ixazomib and dexamethasone, cycle 1 beginning on 09/13/2019. The pomalidomide was put on hold due to side effects, the most significant being fatigue, fever, and just not feeling good generally. As of her follow-up visit on 09/30/2019 the ixazomib was also put on hold. She then continued treatment with dexamethasone 20 mg 4 days a week. I had seen her for a follow-up visit on 10/15/2019. At that time she planning to undergo left total hip arthroplasty. The procedure had been scheduled for 10/30/2019. As such, I had stopped her steroid therapy. She is seen for a followup visit. Her hip surgery ended up being canceled, apparently because of abnormalities in her lab studies. Since her visit last month, there has been further decline in her activity, mainly due to to the severe pain in her left hip. Her ECOG score is 3. Her appetite is still okay. She has no fever or night sweats. Breathing also is okay. She does report having a hacking cough. She does not complain of chest pain. She has no GI or complaints. Her bowel function has improved. She also has pain in her left shoulder and in both knees. She does not complain of headache. She still has neuropathy in her legs and feet. Medications: Acetaminophen Tablet Oral PRN, AmLODIPine Besylate 1 Tablet (of 10 mg) Oral every am, Aspirin 1 (325 mg) Tablet Oral daily, Atorvastatin Calcium 1 Tablet (of 20 mg) Oral daily, Grass Fed Beef 3 (500 mg) Tablet Oral b.i.d., Isosorbide Mononitrate 1 Tablet (of 10 mg) Oral daily, Melatonin 1 - 2 Tablet (of 10 mg) Oral at bedtime, Meloxicam 1 Tablet (of 15 mg) Oral daily, MetFORMIN HCl 0.5 Tablet (of 500 mg) Oral daily, Metoprolol Succinate ER 1 Tablet (of 25 mg) Tablet SR 24 HR Oral daily, Multivitamin Women 50+ 1 Tablet Oral daily, Pantoprazole Sodium 1 Tablet (of 20 mg) Tablet, enteric coated Oral daily, PreserVision AREDS 2 Tablet Oral daily, Senna S 1 - 2 Tablet (of 8.6-50 mg) Oral daily, Synthroid 1 Tablet (of 150 mcg) Oral daily Allergies: Carfilzomib, Daratuzumab, EKG patches, Lisinopril, Pomalidomide, and revlimd. Review of Systems: Constitutional - She has very limited activity due to her hip pain. She is mostly sitting in her chair. Her appetite is good. She has no fever, night sweats, or hot flashes. ECOG score is 3, ENMT - No sinus congestion/drainage. No mouth sores. No sore throat or difficulty swallowing, Hematologic/Lymphatic - She has some bruising, Respiratory - No shortness of breath. She has a hacking cough. No pleuritic pain or hemoptysis, Cardiovascular - No angina pain. No palpitations, Gastrointestinal - No nausea or vomiting. No heartburn or acid reflux. No diarrhea or constipation. No blood in the stool or black stools, Genitourinary (F) - No dysuria or hematuria. No urinary frequency. No urgency or incontinence, Musculoskeletal - She has increasing pain in her left hip and she is having to use a walker to ambulate. She also has pain in her knees and in her left shoulder, Integumentary - No skin rash, Neurologic - No headache. She has had some dizziness. She has neuropathy in her legs and feet, Psychiatric - No anxiety or depression. She does not sleep well. Vital Signs: Performed on Nov 19, 2019 12:00 Height - 66.00 in Weight - 168 lbs (HIGH) BSA - 1.86 sq.m BMI - 27.12 Temperature - 98.7 F Pulse - 69 /min Respiration - 16 /min BP - 132/58 mm(hg) O2 Sat - 98 % Pain - 0 Physical Examination: Constitutional - She looks pretty good generally, but she does have very poor mobility, Eyes - Sclerae nonicteric. Conjunctivae clear, ENMT - No lesions noted in the oral cavity, Hematologic/Lymphatic - No cervical, clavicular, or axillary adenopathy, Respiratory - Lungs are clear with good air movement bilaterally, Cardiovascular - Heart rhythm is regular. There is a II/ systolic murmur. There is no gallop or rub noted, Abdomen - Soft. Liver and spleen are not enlarged. There is no abdominal mass or ascites noted and there is no inguinal adenopathy, Extremities - Mild edema. Dorsalis pedis pulses are palpable bilaterally, Integumentary - No skin eruption, Neurologic - No focal neurologic deficits noted. Lab/Imaging: Test performed on Nov 12, 2019 15:42 Glucose 132 mg/dL BUN 15 mg/dL Creatinine 0.81 mg/dL Cr Clearance (Est) 61.80 mL/min Sodium 135 mmol/L Potassium 3.7 mmol/L Chloride 102 mmol/L CO2 25 mmol/L Calcium 12.3 mg/dL Protein, Total 10.1 g/dL Albumin 2.8 g/dL Bilirubin, Total 0.8 mg/dL Alkaline Phosphatase 61 IU/L AST (SGOT) 30 IU/L ALT (SGPT) 10 IU/L WBC 4.9 10^9/L RBC 2.65 10^12/L HGB 8.5 g/dL HCT 25.9 % MCV 97.7 fl MCH 32.1 pg MCHC 32.8 g/dL RDW 18.3 % Platelet Count 147 10^9/L Neutrophils (Gran) 1.74 10^9/L Lymphocytes 2 10^9/L Monocytes 0.95 10^9/L Eosinophils .10 10^9/L Basophils .03 10^9/L Test performed on Nov 12, 2019 08:46 Albumin, SPE 3.01 g/dL IGA 8 mg/dL IGG 6500 mg/dL IGM 10 mg/dL [place] [facility] / Lambda Ratio 186.89 Absolute Value Lambda Light Chain 1.60 [place] Light Chain 299.03 Erlab-4-dynnmgvf 0.24 g/dL Icnri-9-ouayvngk 0.61 g/dL Beta Globulin 0.54 g/dL Gamma Globulin 5.46 g/dL SPE Interpretation significant increase in monoclonal proteinemia since prior study Impression: 1. Patient with IgG kappa myeloma. Her bone marrow aspiration/biopsy on 10/27/2017 was hypercellular with 63% plasma cells. 2. She had anemia, renal dysfunction, and symptomatic hypercalcemia at initial presentation. Her skeletal survey showed diffuse bone demineralization, but without evidence of any large osteolytic lesions. Her other medical illnesses include: 3. Hypertension. 4. Type II diabetes. 5. Peripheral neuropathy. 6. Degenerative arthritis. 7. She has a history of nephrolithiasis. She had some improvement on initial treatment with sodium pamidronate and 4 days of high-dose dexamethasone. She then began treatment with Velcade/Revlimid/dexamethasone on 11/16/2017. The Revlimid was initiated at a reduced dosage of 10 mg daily on a 21/28 day schedule with the Velcade and dexamethasone administered weekly. At that time she also received an infusion of zoledronic acid. Her 1st cycle of treatment was complicated by a febrile illness and diarrhea. She also developed pancytopenia with worsening anemia, requiring PRBC transfusion. I was uncertain to what extent her problems may have been due to the treatment or to the underlying myeloma. Her Revlimid was put on hold at day 4. She was then able to continue treatment with Velcade and dexamethasone. As of 04/04/2018 she began her 6th cycle of treatment. Her repeat serum protein electrophoresis on 05/01/2018 showed 2 monoclonal bands which together quantitated at 0.21 g/dL. The serum free light chain assay showed normal kappa/lambda ratio. Her hemoglobin was stable at 11.2 g. As of her follow-up visit on 05/02/2018 she was still having some fatigue, but she otherwise appeared stable clinically. She then began maintenance Revlimid at 5 mg daily. It was put on hold as of 05/29/2018 due to worsening skin eruption. The skin eruption subsequently did resolve, though gradually. As of her follow-up visit in June 2018 she had only a very small amount of residual M protein, and she appeared stable clinically. Given the side effects she had experienced with her treatment, I opted to just follow her on observation/expectant management. During her subsequent follow-up her clinical status initially remained stable. However, as of her follow-up in March 2019 there had been a slight drop in her hemoglobin/hematocrit levels, and her protein electrophoresis studies showed a significant increase in her M protein, to 2.11 g/dL, and a significant increase in the kappa free light chain, to 105.21 mg/L, with the kappa/lambda ratio elevated at 8.65. This was obviously consistent with progression of the myeloma. On 05/14/2019 she began a trial of second line therapy with daratumumab in combination with carfilzomib and dexamethasone. Following her day 2 treatment she required hospitalization for acute respiratory distress/pulmonary edema. Her clinical course was complicated by acute renal injury and thrombocytopenia. She did have a good recovery. Following hospitalization April she did show gradual improvement in her performance status. However, by July 2019 her M protein had increased significantly, to 2.65 g/dL. Her restaging PET/CT showed no obvious involvement with myeloma. However, she was mildly anemic, and with the increasing M protein she then proceeded to 3d line treatment with pomalidomide in combination with ixazomib and dexamethasone. She tolerated the pomalidomide very poorly, and it was stopped early into the first cycle. As of her follow-up visit on 09/30/2019 the ixazomib was also put on hold. She then continued treatment with dexamethasone. During that time she had worsening pain in her left hip due to underlying degenerative disease. He became severe enough to significantly limit her activity, and at that point she was scheduled for left total hip arthroplasty. The procedure, though, and ended up being canceled due to changes in her laboratory studies. At this point she remains significantly anemic with hemoglobin 8.5 g. Her renal function is still adequate with creatinine 0.81 mg/dL, but her calcium has become significantly elevated at 12.3 mg/dL with albumin 2.8 g/dL. This is obviously consistent with progression of her myeloma. Plan: She will be scheduled to come in tomorrow for an infusion of sodium pamidronate for the hypercalcemia. She will then start further treatment for the myeloma, either with melphalan/prednisone or with belantamab [id number], depending on the availability of the latter. Signed By: Kris Muñoz M.D. <<Signature on File>>
== END 2019-11-19 11:45 | disposition home or self-care (01) ==
LOC: STFRANCIS 11:44
PROVIDERS: PCP Family Medicine; Visit Provider Internal Medicine Medical Oncology
DX: C90.00 Multiple myeloma not having achieved remission (principal); E83.52 Hypercalcemia; I10 Essential (primary) hypertension; E11.42 Type 2 diabetes mellitus with diabetic polyneuropathy; M19.90 Unspecified osteoarthritis, unspecified site; N20.0 Calculus of kidney; Z79.52 Long term (current) use of systemic steroids; Z79.899 Other long term (current) drug therapy
CPT/HCPCS: 99214

== ENCOUNTER 2019-11-20 11:59 | Outpatient (CLI) | payer MEDICARE, SELFPAY ==
[2019-11-20] MEDS: sodium chloride 0.9% (100 ml) 100 ML 45 ML (12:25)
== END 2019-11-20 12:00 | disposition home or self-care (01) ==
LOC: ONCMED 12:02
PROVIDERS: PCP Family Medicine; Visit Provider Internal Medicine Medical Oncology
DX: C90.00 Multiple myeloma not having achieved remission (principal); E83.52 Hypercalcemia
CPT/HCPCS: 96365; 96366; J2430; J7040

== ENCOUNTER 2019-11-28 13:45 | Outpatient (CLI) | payer MEDICARE, SELFPAY ==
[2019-11-28] MEDS: diphenhydrAMINE 25 mg Capsule PO (14:30)
[2019-11-28 14:54] LABS: Basophils % 0.4 %; Eosinophils # 0.2 10^3/uL (0.0-0.8); Eosinophils % 3.2 %; Hematocrit 23.2 % (37.0-47.0); Hemoglobin 7.3 g/dL (11.5-15.3); Lymphocytes # 1.9 10^3/uL (0.8-4.8); Lymphocytes % 36.1 %; Mean Corpuscular HGB Conc 31.5 g/dL (30.0-36.0); Mean Corpuscular Hemoglobin 32.3 pg (28.0-34.0); Mean Corpuscular Volume 102.7 fL (81-99); Mean Platelet Volume 11.7 fL (7.4-10.4); Monocytes # 1.1 10^3/uL (0.2-0.9); Monocytes % 20.7 %; Neutrophils # 2.08 10^3/uL (1.8-7.7); Neutrophils % 38.7 %; Nucleated Red Blood Cells % 0.4 %; Platelet Count 142 10^3/cmm (130-400); Red Blood Count 2.26 10^6/uL (4.1-5.3); Red Cell Distribution Width 18.5 % (12.1-15.1); White Blood Count 5.4 10^3/uL (4.0-10.0)
[2019-11-28] MEDS: sodium chloride 0.9% 250 ML 999 ML IV (15:35)
[2019-11-28] MEDS: acetaminophen 325 mg Tablet 650 MG PO (15:43)
[2019-11-28 16:20] VITALS: BP 142/58; PULSE 79; RESP 18; TEMP 36.9; O2SAT 92
[2019-11-28 16:35] VITALS: BP 152/63; PULSE 81; RESP 18; TEMP 36.9; O2SAT 94
[2019-11-28 16:50] VITALS: BP 148/64; PULSE 88; RESP 18; TEMP 37.1; O2SAT 95
[2019-11-28] MEDS: FUROsemide 10 mg/mL SDV 2mL 40 MG IV (17:18)
[2019-11-28 17:20] VITALS: BP 131/60; PULSE 81; RESP 18; TEMP 36.9; O2SAT 95
[2019-11-28 18:01] VITALS: BP 165/65; PULSE 86; RESP 18; TEMP 36.9; O2SAT 95
== END 2019-11-28 13:46 | disposition home or self-care (01) ==
LOC: ONCMED 13:47
PROVIDERS: PCP Family Medicine; Visit Provider Internal Medicine Medical Oncology
DX: C90.00 Multiple myeloma not having achieved remission (principal); E83.52 Hypercalcemia
CPT/HCPCS: 36430; 85025; 86850; 86900; 86920; J1940; J7050; P9016

== ENCOUNTER 2019-12-08 09:02 | Inpatient (IN) | payer MEDICARE, SELFPAY ==
[2019-12-08] VITALS (23 sets, daily range): BP systolic 100–170; BP diastolic 41–76; PULSE 75–118; RESP 21–54; TEMP 36.6–38.6; O2SAT 73–99; BMI 29.0
--- NOTE | 2019-12-08 09:09 | XRR_ITS ---
PROCEDURE INFORMATION: Exam: XR Chest, 1 View Exam date and time: 12/08/2019 9:45 AM Age: 84 years old Clinical indication: Shortness of breath; Additional info: SOB TECHNIQUE: Imaging protocol: XR of the chest Views: 1 view. COMPARISON: CT chest con [id number] 05/19/2019 2:18 PM FINDINGS: Lungs: Abnormal consolidation or enlargement at the right yovany with suspected partially loculated fissural fluid of the right mid chest. Nodular opacity overlies the right lower lung which may reflect nipple shadow. Pulmonary venous congestion. Pleural space: Small bilateral pleural effusions. Heart/Mediastinum: Cardiac enlargement. Vasculature: Calcified thoracic aorta. Bones/joints: Degenerative change of the spine. Degenerative change of both shoulders. Rotator cuff calcification on the right. XR/XR chest 1V portable [id number] IMPRESSION: 1. Cardiomegaly. 2. Bilateral pleural effusions. 3. Consolidation right yovany with hilar enlargement which could be on the basis of underlying atelectasis or pneumonia. Further follow-up to ensure resolution is recommended. 4. Possible nipple shadow overlies the right lower lung which could be assessed on subsequent follow-up chest. 5. Pulmonary venous congestion with low-grade interstitial edema.
--- NOTE | 2019-12-08 09:10 | ECG_ITS ---
[facility] Test Date: 2019-12-08 Pat Name: Alta Red Department: Room: Gender: Female Board Winder: : [id number] Requested By: Martha Ken Order Number: [id number] Amira MD: Alva Uriarte M.D. Measurements Intervals [place] Rate: 112 P: -78 [place]: 158 QRS: -56 QRSD: 113 T: 101 QT: 335 QTc: 458 Interpretive Statements ECTOPIC ATRIAL TACHYCARDIA MARKED LEFT AXIS DEVIATION [QRS AXIS < -30] MODERATE INTRAVENTRICULAR CONDUCTION DELAY POSSIBLE OLD ANTERIOR MYOCARDIAL INFARCTION. ST DEVIATION AND MODERATE T-WAVE ABNORMALITY, CONSIDER LATERAL ISCHEMIA Compared to ECG 05/17/2019 20:57:17 Left-axis deviation now present Intraventricular conduction delay now present ST (T wave) deviation now present T-wave abnormality now present Sinus rhythm no longer present Electronically Signed On 12-08-2019 18:14:27 CDT by Alva Uriarte M.D. [id number]
--- NOTE | 2019-12-08 09:11 | W.ED.SOB ---
HPI - SOB/Dyspnea General: Chief Complaint: Shortness of Breath/Dyspnea Stated Complaint: RESP DISTRESS Time Seen by Provider: 12/08/19 09:06 Source: patient Mode of arrival: ambulatory Limitations: no limitations History of Present Illness: HPI Narrative: 84-year-old female history of congestive heart failure states that she started having severe shortness of breath. Patient is in severe distress here and able to only speak in 1-2 word sentences. She is had a low-grade fever. She denies any cough. Denies any chest pain currently. Associated symptoms: Deny abdominal pain, chest pain, fever(s), nausea or vomiting Review of Systems Const: Denies: fever(s), chills, body aches or change in appetite Eyes: Denies: blurry vision or eye discomfort ENMT: Denies: throat pain or dental pain Card: Denies: chest pain Resp: Reports: dyspnea GI: Denies: abdominal pain, nausea, vomiting or diarrhea : Denies: dysuria Musc: Denies: neck pain or back pain Skin/Breast: Denies: rash Neuro: Denies: headache(s) Psych: Denies: depression [place]/Lymph: Denies: easy bruising All/Imm: Denies: urticaria PFSH ED PFSH: Medical History Abnormal cardiovascular stress test Acute diastolic heart failure Compensated currently Arthritis Benign essential hypertension with target blood pressure below 140/90 Improved Diabetes Dyslipidemia History of nephrolithiasis Hypertension Multiple myeloma Concern of possible pulmonary reaction to chemotherapy. Required endotracheal intubation and mechanical ventilation. Currently recovering Peripheral neuropathy Recent non-ST elevation myocardial infarction Surgical History H/O cystoscopy H/O foot surgery H/O lithotripsy H/O: hysterectomy History of cholecystectomy History of mastectomy, subtotal History of right hip replacement History of thyroidectomy Status post breast reduction Family History Mother Congestive heart failure Cancer breast and kidney Denies family history of Anesthesia complication Bleeding disorder Social History Smoking and tobacco status: never smoked Alcohol intake: never Household members: spouse Marital status: Current occupational status: retired History of recent travel: Yes Details: [place] Out of state: No Physical Exam Const: COMMON NORMALS: patient oriented x3 GENERAL APPEARANCE: in distress HENMT: COMMON NORMALS: normocephalic and atraumatic HEAD & SCALP: normocephalic and atraumatic Eye: COMMON NORMALS: Equal, round and reactive pupils present and EOMs intact bilaterally PUPIL: Yes Equal, round and reactive pupils present Neck/C-Spine: COMMON NORMALS: full ROM and supple Chest: COMMONS NORMALS: normal inspection of the chest and normal palpation of entire chest wall Resp: COMMON NORMALS: No retractions EFFORT & INSPECTION: Yes tachypneic and Yes respiratory distress AUSCULTATION: rales Cardio: COMMON NORMALS: regular rate, regular rhythm and No murmurs present (Cardio) RATE: regular rate RHYTHM: regular rhythm GI: COMMON NORMALS: Normal to inspection, nondistended, normoactive bowel sounds present, Soft to palpation, non-tender and no masses PALPATION: Yes Soft to palpation Extremity: COMMON NORMALS: normal to inspection and full ROM Neuro: COMMON NORMALS: patient oriented x3, moves all extremities and no focal motor deficits Psych: COMMON NORMALS: mental status grossly normal, Normal thought process present and cooperative THOUGHT PROCESS: Normal thought process present Skin: COMMON NORMALS: no rashes or lesions noted and no wounds GENERAL SKIN EXAM: no rashes or lesions noted Course Vital Signs: Vital signs: Vital Signs Temperature 99.6 F 12/08/19 11:30 Pulse Rate 96 12/08/19 11:30 Respiratory Rate 27 H 12/08/19 11:30 Blood Pressure 139/58 12/08/19 11:30 Pulse Oximetry 95 12/08/19 11:30 MDM - SOB/Dyspnea MDM Narrative: Medical decision making narrative: Patient presents here with pneumonia along with CHF exacerbation. Patient is doing well here on BiPAP. Patient given IV Lasix as well. Patient's COVID here is negative. Did start on antibiotics and spoke to hospitalist will admit to the cardiac stepdown unit. Patient's blood pressure has been stable here. Lab Data: Labs: Lab Results 12/08/19 12/08/19 12/08/19 Range/Units 09:09 09:17 09:17 WBC 14.1 H (4.0-10.0) 10^3/ uL RBC 2.75 L (4.1-5.3) 10^6/u L Hgb 8.7 L (11.5-15.3) g/dL Hct 29.2 L (37.0-47.0) % MCV 106.2 H (81-99) fL MCH 31.6 (28.0-34.0) pg MCHC 29.8 L (30.0-36.0) g/dL RDW 19.5 H (12.1-15.1) % Plt Count 161 (130-400) 10^3/c mm MPV 11.2 H (7.4-10.4) fL Neut % (Auto) 37.7 % Lymph % (Auto) 48.4 % [place] % (Auto) 11.4 % Eos % (Auto) 1.6 % Baso % (Auto) 0.3 % Neut # (Auto) 5.32 (1.8-7.7) 10^3/u L Lymph # (Auto) 6.8 H (0.8-4.8) 10^3/u L [place] # (Auto) 1.6 H (0.2-0.9) 10^3/u L Eos # (Auto) 0.2 (0.0-0.8) 10^3/u L Baso # (Auto) 0.0 (0.0-0.1) 10^3/u L Nucleated RBC % (a uto) 0.3 % Nucleated RBCs # 0.0 /100WBC Specimen Type Arterial Sample Site Radial, right ABG pH 7.28 L (7.35-7.45) ABG pCO2 35.9 (35-45) mmHg ABG pO2 74.9 L (80.0-100.0) mmH g ABG HCO3 16.8 L (22-26) mmol/L ABG Base Excess -9.1 L (-2.0-2.0) mmol/ L Diogo Test Pos Hematocrit 27.8 L (37-47) % Hgb O2 Saturation 90.7 L (95-100) % Carboxyhemoglobin 1.3 (0.4-20.1) %THgb Methemoglobin 0.6 (0.4-1.5) % Total Hemoglobin 9.1 L (12-16) g/dL O2 Delivery Device Bipap FiO2 60.0 % Soccer Player ID Cak Sodium 134 L (136-145) mmol/L Potassium 3.8 (3.5-5.1) mmol/L Chloride 103 (98-107) mmol/L Carbon Dioxide 17 L (22-29) mmol/L Anion Gap 17.8 (5-19) BUN 14 (8-23) mg/dL Creatinine 0.8 (0.5-0.9) mg/dL GFR Calculation Not Reportable Glucose 196 H (65-115) mg/dL Calculated Osmolal ity 284 L (285-295) mOsm/k g Calcium 11.8 H (8.5-10.5) mg/dL Total Bilirubin 0.8 (0.15-1.2) mg/dL AST 45 H (0-32) U/L ALT 16 (0-33) U/L Alkaline Phosphata se 78 (35-105) IU/L Troponin T Baselin e (0-10) ng/L NT-Pro-B Natriuret Pep 7251 H (0-450) pg/mL Total Protein 11.2 H (6.6-8.7) g/dL Albumin 2.7 L (3.5-5.2) g/dL Globulin 8.5 H (1.3-4.6) g/dL SARS-CoV-2 Ag (Rap id) (Negative) 12/08/19 12/08/19 Range/Units 09:17 09:35 WBC (4.0-10.0) 10^3/ uL RBC (4.1-5.3) 10^6/u L Hgb (11.5-15.3) g/dL Hct (37.0-47.0) % MCV (81-99) fL MCH (28.0-34.0) pg MCHC (30.0-36.0) g/dL RDW (12.1-15.1) % Plt Count (130-400) 10^3/c mm MPV (7.4-10.4) fL Neut % (Auto) % Lymph % (Auto) % [place] % (Auto) % Eos % (Auto) % Baso % (Auto) % Neut # (Auto) (1.8-7.7) 10^3/u L Lymph # (Auto) (0.8-4.8) 10^3/u L [place] # (Auto) (0.2-0.9) 10^3/u L Eos # (Auto) (0.0-0.8) 10^3/u L Baso # (Auto) (0.0-0.1) 10^3/u L Nucleated RBC % (a uto) % Nucleated RBCs # /100WBC Specimen Type Sample Site ABG pH (7.35-7.45) ABG pCO2 (35-45) mmHg ABG pO2 (80.0-100.0) mmH g ABG HCO3 (22-26) mmol/L ABG Base Excess (-2.0-2.0) mmol/ L Diogo Test Hematocrit (37-47) % Hgb O2 Saturation (95-100) % Carboxyhemoglobin (0.4-20.1) %THgb Methemoglobin (0.4-1.5) % Total Hemoglobin (12-16) g/dL O2 Delivery Device FiO2 % Soccer Player ID Sodium (136-145) mmol/L Potassium (3.5-5.1) mmol/L Chloride (98-107) mmol/L Carbon Dioxide (22-29) mmol/L Anion Gap (5-19) BUN (8-23) mg/dL Creatinine (0.5-0.9) mg/dL GFR Calculation Glucose (65-115) mg/dL Calculated Osmolal ity (285-295) mOsm/k g Calcium (8.5-10.5) mg/dL Total Bilirubin (0.15-1.2) mg/dL AST (0-32) U/L ALT (0-33) U/L Alkaline Phosphata se (35-105) IU/L Troponin T Baselin e 44 H (0-10) ng/L NT-Pro-B Natriuret Pep (0-450) pg/mL Total Protein (6.6-8.7) g/dL Albumin (3.5-5.2) g/dL Globulin (1.3-4.6) g/dL SARS-CoV-2 Ag (Rap id) Negative (Negative) Imaging Data^: CXR: Radiologist's impression: right middle lobe pneumonia EKG Data^: EKG 1: Attestation: I personally reviewed and interpreted this EKG as follows: EKG Interpretation Date: 12/08/19 EKG interpretation time: 09:30 Interpretation: sinus tach hr [address] elevation qrs 113 qtc 401 Discharge Plan Discharge Prescriptions: No Action acetaminophen [Tylenol 8 Hour] 650 mg tablet extended release 650 mg PO Q12H RF: 0 Complete Multivitamin Tablet 1 tab PO DAILY RF: 0 PreserVision AREDS 14,320-226-200 qrrj-xo-jbcv capsule 2 cap PO BID RF: 0 sennosides-docusate sodium [Senna Plus] 8.6-50 mg tablet 1 tab-cap PO DAILY RF: 0 levothyroxine [Synthroid] 150 mcg tablet 125 mcg PO DAILY RF: 0 metformin 500 mg tablet 500 mg PO DAILY RF: 0 pantoprazole 40 mg tablet,delayed release (DR/EC) 40 mg PO DAILY RF: 0 cyanocobalamin-liver extract Tablet PO DAILY RF: 0 isosorbide mononitrate 30 mg tablet extended release 24 hr 30 mg PO DAILY Qty: 30 RF: 0 isosorbide mononitrate 60 mg tablet extended release 24 hr 30 mg PO DAILY 30 Days Qty: 30 RF: 5 metoprolol tartrate 25 mg tablet 25 mg PO BID Qty: 180 RF: 3 atorvastatin 80 mg tablet 80 mg PO DAILY Qty: 90 RF: 3 aspirin 81 mg Tablet,Delayed Release (Dr/Ec) 81 mg PO DAILY Qty: 30 RF: 0 amlodipine 10 mg Tablet 10 mg PO DAILY Qty: 30 RF: 0 Coding Level of Care Code ED President Celebrity Acquistion for Emmyg Fwd Exam Comprehensive
[2019-12-08 09:27] LABS: ABG PCO2 35.9 mmHg (35-45); ABG PH Result 7.28 (7.35-7.45); Arterial Blood Gas Hematocrit 27.8 % (37-47); Base Excess ABG -9.1 mmol/L (-2.0-2.0); Blood Gas Allen Test Pos; Blood Gas Operator Identificat CAK; Blood Gas Sample Site Radial, right; Blood Gas Sample Type Arterial; Carboxyhemoglobin 1.3 %THgb (0.4-20.1); HCO3 ABG 16.8 mmol/L (22-26); HGB O2 Sat 90.7 % (95-100); Methemoglobin 0.6 % (0.4-1.5); Oxygen Device BIPAP; PO2 ABG 74.9 mmHg (80.0-100.0); Total Hemoglobin 9.1 g/dL (12-16)
[2019-12-08 09:34] LABS: Basophils % 0.3 %; Eosinophils # 0.2 10^3/uL (0.0-0.8); Eosinophils % 1.6 %; Hematocrit 29.2 % (37.0-47.0); Hemoglobin 8.7 g/dL (11.5-15.3); Lymphocytes # 6.8 10^3/uL (0.8-4.8); Lymphocytes % 48.4 %; Mean Corpuscular HGB Conc 29.8 g/dL (30.0-36.0); Mean Corpuscular Hemoglobin 31.6 pg (28.0-34.0); Mean Corpuscular Volume 106.2 fL (81-99); Mean Platelet Volume 11.2 fL (7.4-10.4); Monocytes # 1.6 10^3/uL (0.2-0.9); Monocytes % 11.4 %; Neutrophils # 5.32 10^3/uL (1.8-7.7); Neutrophils % 37.7 %; Nucleated Red Blood Cells % 0.3 %; Platelet Count 161 10^3/cmm (130-400); Red Blood Count 2.75 10^6/uL (4.1-5.3); Red Cell Distribution Width 19.5 % (12.1-15.1); White Blood Count 14.1 10^3/uL (4.0-10.0)
[2019-12-08 10:02] LABS: Troponin(5th) Baseline 44 ng/L (0-10)
[2019-12-08] MEDS: acetaminophen 325 mg Tablet 650 MG PO (10:09)
[2019-12-08] MEDS: azithromycin 500 MG in sodium chloride 0.9% 250 ML 250 MG IV ×2 (10:09→18:24)
[2019-12-08] MEDS: cefTRIAXone 1,000 MG in sodium chloride 0.9% (plus) 50 ML 100 MG IV (10:09)
[2019-12-08 10:11] LABS: Alanine Aminotransferase 16 U/L (0-33); Albumin Level 2.7 g/dL (3.5-5.2); Alkaline Phosphatase 78 IU/L (35-105); Aspartate Amino Transferase 45 U/L (0-32); Blood Urea Nitrogen 14 mg/dL (8-23); Calcium 11.8 mg/dL (8.5-10.5); Carbon Dioxide 17 mmol/L (22-29); Chloride 103 mmol/L (98-107); Globulin 8.5 g/dL (1.3-4.6); Glucose 196 mg/dL (65-115); NT Pro B Type Natriuretic Pept 7251 pg/mL (0-450); Osmolality Calculated 284 mOsm/kg (285-295); Sodium 134 mmol/L (136-145); Total Protein 11.2 g/dL (6.6-8.7)
[2019-12-08 10:17] LABS: Total Bilirubin 0.8 mg/dL (0.15-1.2)
[2019-12-08 10:19] LABS: Slide Review Slide Review Perform
[2019-12-08 10:24] LABS: Anion Gap 17.8 (5-19); Potassium 3.8 mmol/L (3.5-5.1)
[2019-12-08] MEDS: FUROsemide 10 mg/mL SDV 4mL 40 MG IVP ×2 (10:51→18:48)
[2019-12-08 11:06] LABS: SARS Covid-2 Antigen Negative (Negative)
--- NOTE | 2019-12-08 11:10 | ECG_ITS ---
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 Measurements Intervals [place] Rate: 100 P: -70 NM: 145 QRS: -47 QRSD: 114 T: 104 QT: 393 QTc: 509 Interpretive Statements SINUS TACHYCARDIA MARKED LEFT AXIS DEVIATION [QRS AXIS < -30] MODERATE INTRAVENTRICULAR CONDUCTION DELAY [110+ ms QRS DURATION] ST DEVIATION AND MODERATE T-WAVE ABNORMALITY, CONSIDER LATERAL ISCHEMIA Compared to ECG 12/08/2019 09:20:29 ST (T wave) deviation no longer present Early repolarization no longer present T-wave abnormality still present Possible ischemia still present Electronically Signed On 12-08-2019 18:23:55 CDT by Alva Uriarte M.D. [id number]
[2019-12-08 12:06] LABS: Troponin 5 2HR 99.32 ng/L (0-10)
[2019-12-08 12:09] LABS: Troponin 5 2HR Delta 55.32 ABS# (0-10)
[2019-12-08] MEDS: aspirin 325 mg Tablet PO (13:12)
[2019-12-08] MEDS: enoxaparin 80 mg/0.8 mL Syringe SUBCUT (13:12)
--- NOTE | 2019-12-08 13:15 | PM.HP ---
Providers/Chief Complaint Admitting Physician: Gonzalez Howard MD Primary Care Provider: Saul Nieto Jr, MD Chief Complaint: RESP DISTRESS History of Present Illness past medical history of IgG kappa myeloma on chemotherapy, hypertension, type 2 diabetes, HFpef,peripheral neuropathy, degenerative arthritis who presents to the emergency room with chief complaints of worsening shortness of breath, and nonproductive cough, since yesterday, daughter was able by the bedside, and history was provided by her as well as the patient. She was also complaining of, lethargy, generalized weakness, subjective fever, cold. In the ER, he was worked up for, possible heart failure. EKG , troponins , x-ray chest, CBC, CMP , ABG, proBNP, was done. She was given 1 dose of 40 mg IV Lasix, as well as, started on, ceftriaxone and azithromycin. Review of Systems General: Reports: 10 or more systems reviewed and unremarkable except in HPI and below Const: Denies: body aches, change in appetite or diaphoresis Resp: Denies: wheezing GI: Denies: abdominal pain, nausea, vomiting, diarrhea or constipation : Denies: flank pain Musc: Denies: back pain, extremity pain or extremity swelling Neuro: Denies: headache(s), difficulty walking or confusion Medications/Allergies Home Medications Medication Instructions Recorded Confirmed Last Taken Type acetaminophen 650 mg 650 mg PO Q12H 05/15/19 10/28/19 05/15/19 History tablet,extended release multivitamin,mc-oplg-cimtdyfn 1 tab PO DAILY 05/15/19 10/28/19 05/15/19 History sennosides 8.6 mg-docusate sodium 1 tab-cap PO DAILY 05/15/19 10/28/19 05/15/19 History 50 mg tablet vitamins A,C,S-rsop-fbijap 14,320 2 cap PO BID cap 05/15/19 10/28/19 05/15/19 History unit-226 mg-200 unit capsule amlodipine 10 mg PO DAILY #30 tab 05/25/19 10/28/19 Unknown Rx aspirin 81 mg PO DAILY #30 tab 05/25/19 10/28/19 Unknown Rx pantoprazole 40 mg tablet,delayed 40 mg PO DAILY 06/17/19 10/28/19 Unknown History release cyanocobalamin-liver extract tab PO DAILY tab 08/16/19 10/28/19 Unknown History metoprolol tartrate 25 mg tablet 25 mg PO BID #180 tab 10/10/19 10/28/19 Unknown Rx isosorbide mononitrate 30 mg 30 mg PO DAILY #30 tab 10/28/19 10/28/19 Unknown Rx tablet,extended release 24 hr levothyroxine 150 mcg tablet 125 mcg PO DAILY tab 10/28/19 10/28/19 Unknown History metformin 500 mg tablet 500 mg PO DAILY 10/28/19 10/28/19 Unknown History isosorbide mononitrate 60 mg 30 mg PO DAILY 30 Days #30 tab 10/29/19 Unknown Rx tablet,extended release 24 hr atorvastatin 80 mg tablet 80 mg PO DAILY #90 tab 11/18/19 Unknown Rx Allergies Allergy/AdvReac Type Severity Reaction Status Date / Time lenalidomide [From Revlimid] Allergy ALGY-Rash Verified 08/16/19 11:54 lisinopril AdvReac ADR-Cough Verified 08/16/19 11:54 PFSH Acute PFSH: Medical History Abnormal cardiovascular stress test Acute diastolic heart failure Compensated currently Arthritis Benign essential hypertension with target blood pressure below 140/90 Improved Diabetes Dyslipidemia History of nephrolithiasis Hypertension Multiple myeloma Concern of possible pulmonary reaction to chemotherapy. Required endotracheal intubation and mechanical ventilation. Currently recovering Peripheral neuropathy Recent non-ST elevation myocardial infarction Surgical History H/O cystoscopy H/O foot surgery H/O lithotripsy H/O: hysterectomy History of cholecystectomy History of mastectomy, subtotal History of right hip replacement History of thyroidectomy Status post breast reduction Family History Mother Congestive heart failure Cancer breast and kidney Denies family history of Anesthesia complication Bleeding disorder Social History Smoking and tobacco status: never smoked Alcohol intake: never Household members: spouse Marital status: Current occupational status: retired History of recent travel: Yes Details: [place] Out of state: No Vitals/I&O/Wt Last Vital Signs Temp 99.6 F 12/08/19 11:30 Pulse 97 12/08/19 12:27 Resp 23 H 12/08/19 12:27 BP 146/59 10/11/20 12:27 Pulse Ox 98 12/08/19 12:27 12/07/19 12/08/19 12/08/19 22:59 06:59 14:59 Intake Total 50 / 50 Balance 50 / 50 Weight last 48 hrs Weight 81.647 kg Physical Exam Const: COMMON NORMALS: patient oriented x3 HENMT: COMMON NORMALS: normocephalic, atraumatic, hearing grossly normal bilaterally and external ears normal HEAD & SCALP: normocephalic and atraumatic EXTERNAL EAR: Yes external ears normal Eye: COMMON NORMALS: no scleral icterus GENERAL EYE: appearance normal, both eyes and all related structures Chest: COMMONS NORMALS: normal inspection of the chest and normal palpation of entire chest wall CHEST: Yes Symmetrical chest wall rise Resp: EFFORT & INSPECTION: Yes symmetric chest movement OTHER: B/L Coarse Breath Sound is Present, minimal basal crackles, no rhonchi Cardio: COMMON NORMALS: regular rate, regular rhythm, S1 normal heart sound present, S2 normal heart sound present, No gallops present (Cardio), No murmurs present (Cardio), No rub (Cardio) and Peripheral pulses 2+ throughout RATE: regular rate RHYTHM: regular rhythm HEART SOUNDS: S1 normal heart sound present and S2 normal heart sound present PERIPHERAL PULSES: Peripheral pulses 2+ throughout GI: COMMON NORMALS: Normal to inspection, nondistended, normoactive bowel sounds present, Soft to palpation, non-tender, No hepatosplenomegaly present and no masses AUSCULTATION: Yes normoactive bowel sounds PALPATION: Yes Soft to palpation and Yes No hepatosplenomegaly present RECTAL EXAM: deferred Extremity: COMMON NORMALS: no clubbing, cyanosis or edema and no pedal edema Neuro: COMMON NORMALS: patient oriented x3 Urinary Catheter Management^: Johnson: Cath Placed During This Visit: yes Reason for Continuing Indwelling Catheter: Accurate Measurement of Urinary Output in Critically Ill Patients Urinary Catheter Date of Insertion: 12/08/19 Urinary Catheter Time of Insertion: 10:00 Data : 12/08/19 09:17 12/08/19 09:17 Micro: Microbiology 12/08/19 11:26 Blood Culture - Preliminary Blood SPECIMEN COLLECTED 12/08/19 09:17 Blood Culture - Preliminary Blood SPECIMEN COLLECTED CXR: I personally reviewed and interpreted this imaging study as follows: My impression: Bilateral pulmonary congestion present, bilateral infiltrates present. 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 She was also complaining of, lethargy, generalized weakness, subjective fever, cold. Xray chest: Bilateral pulmonary congestion proBNP: 7251 Lasix 40 mg I.V q12 h daily. Hold Metoprol Continue ISMN 30 MG Oral daily Strict intake output Daily weight Fluid restriction Status: Acute (2) NSTEMI (non-ST elevated myocardial infarction): Delta troponin at 2-hour: 55 with baseline troponin : 44 , 2-hour troponin: 99. EKG: ECTOPIC ATRIAL TACHYCARDIA MARKED LEFT AXIS DEVIATION [QRS AXIS < -30] PATTERN CONSISTENT WITH PULMONARY DISEASE MODERATE INTRAVENTRICULAR CONDUCTION DELAY [110+ ms QRS DURATION] ST DEVIATION AND MODERATE T-WAVE ABNORMALITY, CONSIDER LATERAL ISCHEMIA. Plan 325 mg one-time oral dose: Aspirin 81 mg oral daily Lovenox 80 every 12 hours daily Atorvastatin 80 Mg oral daily 2D echo Trend troponin Serial EKG Consult cardiology Status: Acute (3) Acute respiratory failure with hypoxia: Acute hypoxic respiratory failure secondary to heart failure with preserved ejection fraction exacerbation/PNA. ABG: pH:7.28, PCO2: 35, PO2: 74, FiO2: 60% Currently on BiPAP. Continue Lasix 40 mg IV every 12 hours, as well as, Currently on vancomycin, imipenem and Zosyn. Status: Acute (4) Pneumonia: Currently on vancomycin, imipenem and Zosyn Status: Acute Qualifiers: Laterality: bilateral Lung location: unspecified part of lung Pneumonia type: due to unspecified organism Qualified Code(s): J18.9 - Pneumonia, unspecified organism (5) Hypercalcemia: Hypercalcemia of malignancy: Corrected calcium: 12.8 Will give her calcitonin as well as pamidronate Status: Acute (6) Multiple myeloma: Status: Acute (7) Hypothyroidism: Levothyroxine 150 mcg oral daily Status: Acute Additional A&P Information Code Status : Full code DVT PPX: Lovenox Attestations Medical Necessity Statement*: Patient needs to be in hospital for management heart failure. 2 midnight stay is expected. 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
[2019-12-08 13:41] LABS: Procalcitonin 0.29 ng/mL (0-0.5); Thyroid Stimulating Hormone 5.29 uIU/mL (0.27-4.20)
--- NOTE | 2019-12-08 14:55 | CTR_ITS ---
PROCEDURE INFORMATION: Exam: CT Chest Without Contrast Exam date and time: 12/08/2019 3:32 PM Age: 84 years old Clinical indication: Condition or disease; Lung condition and disease; Pneumonia; Lobar; Additional info: Pneumoia TECHNIQUE: Imaging protocol: Computed tomography of the chest without contrast. Radiation optimization: All CT scans at this facility use at least one of these dose optimization techniques: automated exposure control; mA and/or kV adjustment per patient size (includes targeted exams where dose is matched to clinical indication); or iterative reconstruction. COMPARISON: CT chest wo con [id number] 05/19/2019 2:18 PM RADIATION DOSE METRICS: Total DLP (mGy-cm): 704.57 FINDINGS: Lungs: There is dense airspace consolidation with air bronchograms in the right lung greatest adjacent to the right hilum. Additional airspace opacities are noted in the remaining right lung and less prominently throughout the left lung. Pleural space: There are small left pleural effusion and a moderate sized right pleural effusion. Heart: The heart is enlarged. There is a small pericardial effusion. Aorta: Unremarkable. No aortic aneurysm. Lymph nodes: There is a 1 cm short axis right paratracheal lymph node image 23. There is a 1.5 cm right hilar lymph node image 28. No definite left hilar adenopathy. Liver: The liver has and unchanged nodular contour and there is relative hypertrophy of the caudate lobe, consistent with cirrhosis. Intraperitoneal space: There is an unchanged small amount of ascites. Bones/joints: Unremarkable. No acute fracture. Soft tissues: Unremarkable. CT/CT chest wo con [id number] IMPRESSION: Extensive bilateral airspace consolidation compatible with pneumonic infiltrates greatest adjacent to the right hilum. There is reactive adenopathy in the mediastinum and right hilum and pleural effusions right greater than left. Radiation Dose CTDIVOL = (mGy): DLP = 704.57 (mGy-cm)
--- NOTE | 2019-12-08 15:10 | ECG_ITS ---
[facility] Test Date: 2019-12-08 Pat Name: Alta Red Department: Room: [facility] Gender: Female Chief Vendor Quality: : 1935 Requested By: Martha Ken Order Number: [id number] Amira MD: Alva Uriarte M.D. Measurements Intervals [place] Rate: 82 P: 129 MT: 209 QRS: 22 QRSD: 98 T: 96 QT: 392 QTc: 460 Interpretive Statements SINUS RHYTHM NONSPECIFIC ST & T-WAVE ABNORMALITY Compared to ECG 12/08/2019 11:17:11 Left-axis deviation no longer present Intraventricular conduction delay no longer present Possible ischemia no longer present T-wave abnormality still present Electronically Signed On 12-08-2019 18:22:14 CDT by Alva Uriarte M.D. [id number]
[2019-12-08] MEDS: fentaNYL 50 mcg/mL INJ 2mL IVP (16:18)
[2019-12-08] MEDS: midazolam 1 mg/mL INJ 2 mL 2 MG IVP ×2 (16:18→16:35)
[2019-12-08] MEDS: succinylcholine 20 mg/mL SDV 10mL 122.4705 MG IV (16:18)
[2019-12-08 16:25] LABS: Troponin 5 6HR 465.1 ng/L (0-10)
[2019-12-08 16:26] LABS: Troponin 5 6HR Delta 421.1 ng/L (0-12)
[2019-12-08 16:56] LABS: Glucose Point of Care 93 mg/dL (70-110)
[2019-12-08 16:56] LABS: Reflex Lactate Order REFLEX LACTIC ORDERD
[2019-12-08] MEDS: ipratropium-albuterol 3 mL Neb INHALATION (17:00)
[2019-12-08] MEDS: dexmedetomidine 400 MCG in sodium chloride 0.9% (100 ml) 100 ML 6.4 MCG IV (17:30)
[2019-12-08 18:13] LABS: ABG PH Result 7.49 (7.35-7.45); Alveolar-Arterial Oxygen Gradi 31.3 mmHg (5-10); Arterial Blood Gas Hematocrit 22.9 % (37-47); Base Excess ABG -3.1 mmol/L (-2.0-2.0); Blood Gas Allen Test Pos; Blood Gas Operator Identificat CAK; Blood Gas Sample Site Radial, left; Blood Gas Sample Type Arterial; Blood Gas Tidal Volume 0.45; Carboxyhemoglobin 1.3 %THgb (0.4-20.1); HCO3 ABG 19.7 mmol/L (22-26); HGB O2 Sat 95.6 % (95-100); Ionized Calcium Level - ABG 1.2 mmol/L (1.1-1.4); Methemoglobin 0.7 % (0.4-1.5); Oxygen Device VENT; Oxygen Saturation ABG 97.5; PO2 ABG 78.6 mmHg (80.0-100.0); Potassium Level - ABG 3.4 mmol/L (3.5-5.0); Total Hemoglobin 7.5 g/dL (12-16)
[2019-12-08] MEDS: fentaNYL 50 mcg/mL INJ 2mL 25 MCG IVP (18:23)
[2019-12-08] MEDS: calcitonin,salmon 200 unit/mL SDV 2mL 320 UNIT SUBCUT (18:24)
--- NOTE | 2019-12-08 19:05 | XRR_ITS ---
PROCEDURE INFORMATION: Exam: XR Chest, 1 View Exam date and time: 12/08/2019 7:21 PM Age: 84 years old Clinical indication: Device placement; Ett placement (vent status); Additional info: Status post intubation TECHNIQUE: Imaging protocol: XR of the chest Views: 1 view. COMPARISON: CT chest con [id number] 12/08/2019 3:48 PM FINDINGS: Tubes, catheters and devices: There is an ET tube with tip at the clavicular heads an orogastric tube with tip off the film. Lungs: Extensive right-sided airspace consolidation/pneumonic infiltrate is unchanged compared to the prior CT scan. Patchy airspace opacities in the left lung are unchanged. Pleural space: There is a small right pleural effusion. Heart/Mediastinum: The heart is enlarged. Bones/joints: No acute abnormality. XR/XR chest 1V portable [id number] IMPRESSION: 1. There is an ET tube with tip at the clavicular heads an orogastric tube with tip off the film. 2. Unchanged airspace opacities in the lungs concerning for pneumonic infiltrates right greater than left.
--- NOTE | 2019-12-08 19:07 | PC.NURSE ---
1600-- TRANSFER FROM MED/SURG FOR RESP COMPLICATIONS. ON BIPAP WITH PLAN TO INTUBATE UPON ARRIVAL TO ICU. DR QUINONES & RESP THERAPY AT BEDSIDE. ROOM SET UP FOR INTUBATION, SUCCINYLCHOLINE, VERSED, FENTANYL GIVEN ORDERED. 8.0 TUBE 23 LIP CRITICAL TROPONIN GIVEN TO DR QUINONES AT BEDSIDE.
--- NOTE | 2019-12-08 19:22 | NUR.SHIFT ---
1700- FAMILY AT BEDSIDE TO SEE PT AFTER INTUBATION. OBTAINED PHONE NUMBERS & NAMES, PROVIDED THEM WITH DIRECT NUMBER TO ICU.
--- NOTE | 2019-12-08 19:24 | P.CONIM_ITS ---
Providers/Reason For Consult Consulting Physican/Specialty*: Dr. Uriarte, Cardiology Reason for Consult*: Shortness of breath, elevated troponin Attending Physician: Gonzalez Howard MD Primary Care Provider: Saul Nieto Jr, MD History of Present Illness History of Present Illness Alta Red is a 84 year old female with PMhx of IgG kappa myeloma, CAD with h/o NSTEMI in 04/2019. She had chemotherapy with multiple chemo trial and due to side effects that had to be discontinued. She also has hypertension, type 2 diabetes, HFpEF,peripheral neuropathy, degenerative arthritis, anemic, hypercalcemia and h/o chronic renal insufficiency. She was admitted to the hospital towards the end of April, with the features of non-ST elevation myocardial infarction, complicated with diastolic heart failure and respiratory failure. She presented to the emergency room with chief complaints of worsening shortness of breath, leg swelling and nonproductive cough for past week. She has been having SOB on laying on left side for the past week. She started lasix last but her symptoms continued to worsen. Her daughter and were available and history was provided by her as well as the patient. She was also complaining of, lethargy, generalized weakness, subjective fever, cold. Review of Systems General: Reports: 10 or more systems reviewed and unremarkable except in HPI and below Const: Denies: body aches, change in appetite or diaphoresis ENMT: Denies: nasal congestion or epistaxis Card: Reports: edema, dyspnea on exertion and orthopnea; Denies: chest pain Resp: Denies: wheezing GI: Denies: abdominal pain, nausea, vomiting, diarrhea or constipation : Denies: flank pain Musc: Reports: extremity swelling; Denies: back pain or extremity pain Skin/Breast: Denies: rash Neuro: Denies: headache(s), difficulty walking or confusion Psych: Denies: anxiety or depression Endo: Denies: tired all the time Maicol/Lymph: Denies: petechiae or purpura All/Imm: Denies: facial swelling Meds/Allergies Home Medications and Allergies Home Medications Medication Instructions Recorded Confirmed Last Taken Type acetaminophen 650 mg 650 mg PO Q12H 05/15/19 10/28/19 05/15/19 History tablet,extended release multivitamin,uk-[id number] 1 tab PO DAILY 05/15/19 10/28/19 05/15/19 History sennosides 8.6 mg-docusate sodium 1 tab-cap PO DAILY 05/15/19 10/28/19 05/15/19 History 50 mg tablet vitamins A,C,G-vqka-esxogc 14,320 2 cap PO BID cap 05/15/19 10/28/19 05/15/19 History unit-226 mg-200 unit capsule amlodipine 10 mg PO DAILY #30 tab 05/25/19 10/28/19 Unknown Rx aspirin 81 mg PO DAILY #30 tab 05/25/19 10/28/19 Unknown Rx pantoprazole 40 mg tablet,delayed 40 mg PO DAILY 06/17/19 10/28/19 Unknown History release cyanocobalamin-liver extract tab PO DAILY tab 08/16/19 10/28/19 Unknown History metoprolol tartrate 25 mg tablet 25 mg PO BID #180 tab 10/10/19 10/28/19 Unknown Rx isosorbide mononitrate 30 mg 30 mg PO DAILY #30 tab 10/28/19 10/28/19 Unknown Rx tablet,extended release 24 hr levothyroxine 150 mcg tablet 125 mcg PO DAILY tab 10/28/19 10/28/19 Unknown History metformin 500 mg tablet 500 mg PO DAILY 10/28/19 10/28/19 Unknown History isosorbide mononitrate 60 mg 30 mg PO DAILY 30 Days #30 tab 10/29/19 Unknown Rx tablet,extended release 24 hr atorvastatin 80 mg tablet 80 mg PO DAILY #90 tab 11/18/19 Unknown Rx Allergies Allergy/AdvReac Type Severity Reaction Status Date / Time lenalidomide [From Revlimid] Allergy ALGY-Rash Verified 08/16/19 11:54 lisinopril AdvReac ADR-Cough Verified 08/16/19 11:54 Current Medications Current Medications Generic Name Dose Route Start Last Admin Trade Name Freq PRN Reason Stop Dose Admin Albuterol/Ipratropium 3 ml 12/08/19 14:36 12/08/19 17:00 Duoneb INHALATION 3 ml Q4H PRN Administration SHORTNESS OF BREATH Calcitonin [place] 320 unit 12/08/19 16:00 12/08/19 18:24 Miacalcin SUBCUT 12/09/19 04:01 320 unit Q12H SAÚL Administration Enoxaparin Sodium 80 mg 12/08/19 13:00 12/08/19 13:12 Lovenox SUBCUT 80 mg Q12H SAÚL Administration Fentanyl 25 mcg 12/08/19 17:23 12/08/19 18:23 Sublimaze IVP 25 mcg Q4H PRN Administration SEVERE PAIN Furosemide 40 mg 12/08/19 19:15 12/08/19 18:48 Lasix IVP Not Given Q12H SAÚL Azithromycin 500 mg/ Sodium 250 mls @ 250 mls/hr 12/08/19 14:00 12/08/19 18:24 Chloride IV 250 mls/hr Q24H SAÚL Administration Protocol Imipenem/Cilastatin Sodium 250 100 mls @ 200 mls/hr 12/08/19 15:00 12/08/19 18:24 mg/ Sodium Chloride IV Infused Q8H SAÚL Infusion Protocol Dexmedetomidine HCl 400 mcg/ 104 mls @ 0 mls/hr 12/08/19 16:30 12/08/19 18:49 Sodium Chloride IV 0.4 mcg/kg/hr .Q0M SAÚL 8.5 mls/hr Titration Protocol Per Protocol Norepinephrine Bitartrate 4 mg 254 mls @ 0 mls/hr 12/08/19 17:30 12/08/19 18:49 / Dextrose IV 4 mcg/min .Q0M SAÚL 15.2 mls/hr Titration Protocol Per Protocol Insulin Aspart 0 unit 12/08/19 18:00 12/08/19 18:48 Novolog SUBCUT Not Given WM&BEDTIME SAÚL Protocol PFSH Acute PFSH: Medical History Abnormal cardiovascular stress test Acute diastolic heart failure Compensated currently Arthritis Benign essential hypertension with target blood pressure below 140/90 Improved Diabetes Dyslipidemia History of nephrolithiasis Hypertension Multiple myeloma Concern of possible pulmonary reaction to chemotherapy. Required endotracheal intubation and mechanical ventilation. Currently recovering Peripheral neuropathy Recent non-ST elevation myocardial infarction Surgical History H/O cystoscopy H/O foot surgery H/O lithotripsy H/O: hysterectomy History of cholecystectomy History of mastectomy, subtotal History of right hip replacement History of thyroidectomy Status post breast reduction Family History Mother Congestive heart failure Cancer breast and kidney Denies family history of Anesthesia complication Bleeding disorder Social History Smoking and tobacco status: never smoked Alcohol intake: never Household members: spouse Marital status: Current occupational status: retired History of recent travel: Yes Details: [place] Out of state: No Vitals/I&O/Wt Last Vital Signs Temp 98.2 F 12/08/19 14:39 Pulse 81 12/08/19 18:00 Resp 28 H 12/08/19 18:00 BP 100/41 12/08/19 18:00 Pulse Ox 94 12/08/19 18:00 12/08/19 12/08/19 12/08/19 06:59 14:59 22:59 Intake Total 50 / 50 116.914 / 166.914 Output Total 460 / 460 Balance 50 / 50 -343.086 / -293.086 Weight last 48 hrs Weight 180 lb Physical Exam Const: COMMON NORMALS: patient oriented x3 and alert GENERAL APPEARANCE: cooperative, comfortable, well kempt, ill appearing, well hydrated and other (on BiPaP) HENMT: COMMON NORMALS: normocephalic, atraumatic, hearing grossly normal bilaterally and external ears normal HEAD & SCALP: normocephalic and atraumatic FACE & SINUS: normal facial exam and edema EXTERNAL EAR: Yes external ears normal Eye: COMMON NORMALS: Equal, round and reactive pupils present, EOMs intact bilaterally, conjunctivae normal and no scleral icterus GENERAL EYE: appearance normal, both eyes and all related structures CONJUNCTIVA: Yes conjunctivae normal SCLERA: sclerae normal PUPIL: Yes Equal, round and reactive pupils present Neck/C-Spine: COMMON NORMALS: no lymphadenopathy, supple, no JVD and Thyroid normal GENERAL: Yes normal visual inspection, Yes trachea midline and No Mass present (neck) THYROID: Thyroid normal CAROTIDS: Yes normal carotid upstroke CERVICAL SPINE: Yes cervical ROM normal Chest: COMMONS NORMALS: normal inspection of the chest and normal palpation of entire chest wall CHEST: Yes Symmetrical chest wall rise, No mass, No tenderness, No Surgical scars present (Chest) and No rash Resp: COMMON NORMALS: clear to auscultation bilaterally EFFORT & INSPECTION: No able to speak in complete sentences, Yes tachypneic, Yes respiratory distress, No pursed lip breathing, No labored and No Actively coughing AUSCULTATION: clear to auscultation bilaterally, no crackles, no rales, no rhonchi, no wheezes and vesicular breath sounds Cardio: COMMON NORMALS: no JVD, regular rate, regular rhythm, S1 normal heart sound present, S2 normal heart sound present and Peripheral pulses 2+ throughout PALPATION: normal PMI RATE: regular rate RHYTHM: regular rhythm HEART SOUNDS: S1 normal heart sound present, S2 normal heart sound present, no gallops and no murmurs BRUITS: no carotid bruits PERIPHERAL PULSES: Peripheral pulses 2+ throughout, radial pulses present, posterior tibial pulses present and dorsalis pedis present GI: COMMON NORMALS: Soft to palpation AUSCULTATION: Yes normoactive bowel sounds PALPATION: Yes Soft to palpation, No Tenderness to palpation present (GI), No Guarding due to palpation present (GI), No Rigid due to palpation, No Pulsatile mass present and No Ascites present PERCUSSION: tympanic to percussion Extremity: GENERAL: No calf tenderness, Yes edema and No pallor Neuro: COMMON NORMALS: patient oriented x3 and no focal motor deficits SENSORIUM/ORIENTATION: Yes alert Psych: COMMON NORMALS: Normal thought process present and speech normal APPEARANCE: Yes well kempt SPEECH: Yes normal speech MOOD & AFFECT: Yes euthymic mood THOUGHT PROCESS: Normal thought process present THOUGHT CONTENT: Yes Normal thought content present Skin: HAIR: normal NAILS: normal Urinary Catheter Management^: Johnson: Cath Placed During This Visit: yes Reason for Continuing Indwelling Catheter: Accurate Measurement of Urinary Output in Critically Ill Patients Urinary Catheter Date of Insertion: 12/08/19 Urinary Catheter Time of Insertion: 10:00 Data Micro: Micro: Microbiology 12/08/19 16:30 Gram Stain - Final Sputum - Endotrac heal Tube Aspirate 12/08/19 11:26 Blood Culture - Pr eliminary Blood SPECIMEN COLLE HERNESTO 12/08/19 09:17 Blood Culture - Pr eliminary Blood SPECIMEN [facility] Imaging^: Other Imaging: Radiologist's impression: # CT chest FINDINGS: Lungs: There is dense airspace consolidation with air bronchograms in the right lung greatest adjacent to the right hilum. Additional airspace opacities are noted in the remaining right lung and less prominently throughout the left lung. Pleural space: There are small left pleural effusion and a moderate sized right pleural effusion. Heart: The heart is enlarged. There is a small pericardial effusion. Aorta: Unremarkable. No aortic aneurysm. Lymph nodes: There is a 1 cm short axis right paratracheal lymph node image 23. There is a 1.5 cm right hilar lymph node image 28. No definite left hilar adenopathy. Liver: The liver has and unchanged nodular contour and there is relative hypertrophy of the caudate lobe, consistent with cirrhosis. Intraperitoneal space: There is an unchanged small amount of ascites. Bones/joints: Unremarkable. No acute fracture. Soft tissues: Unremarkable. IMPRESSION: Extensive bilateral airspace consolidation compatible with pneumonic infiltrates greatest adjacent to the right hilum. There is reactive adenopathy in the mediastinum and right hilum and pleural effusions right greater than left. # MPI (10/22/19) IMPRESSIONS 1. Myocardial perfusion may revealing a small area of reversible defect in the mid inferolateral and apical lateral region, suggestive of ischemia in the distribution of the left circumflex artery. 2. Normal LV ejection fraction of 69%. 3. LV wall motion analysis revealing no gross wall motion normalities. 4. Normal LV volume. No similar previous studies are available for comparison. # TTE (04/2019) CONCLUSIONS Normal left ventricular size and systolic function, EF 66% . Moderate left ventricular hypertrophy. Grade I/IV diastolic dysfunction (abnormal relaxation filling pattern), normal to mildly elevated filling pressures. Mildly increased left atrial size. Thickened mitral valve. Moderate mitral annular calcification. Thickened aortic valve. Trace aortic valve regurgitation. Trace tricuspid valve regurgitation. Estimated pulmonary artery peak systolic pressure 41 mmHg Compared to the study from 05/03/2019 , there may not be a significant change A&P Assessment and plan (1) Acute respiratory failure with hypoxia: Acute hypoxic respiratory failure secondary to heart failure with preserved ejection fraction exacerbation/PNA. ABG: pH:7.28, PCO2: 35, PO2: 74, FiO2: 60% She was on BiPAP but later had to be intubated. -continue lasix 40 mg IV x 12 hr Status: Acute (2) Heart failure: Status: Acute Qualifiers: Heart failure chronicity: acute on chronic Heart failure type: diastolic Qualified Code(s): I50.33 - Acute on chronic diastolic (congestive) heart failure (3) NSTEMI (non-ST elevated myocardial infarction): -continue ASA, statin, metoprolol, lovenox and imdur. -continue to manage with medications for now. Hold off on plavix for now. -NO CP, f/u on echo. Plan for further testing with coronary angiogram based on echo findings and patient's progress. Status: Acute (4) Multiple myeloma: Status: Acute Additional A&P Information Right lower lobe pneumonia DM-2 Hypercalcemia Anemia Arthritis Thank you for allowing me to participate in patient's care. Please feel free to call with questions or concerns. Consult Attestations Medical Necessity Statement: Patient remains quite ill. Coding Level of Care Code Acute News Gathering Technician for [facility] Fwd Exam Comprehensive Diagnoses Acute respiratory failure with hypoxia J96.01 Heart failure I50.33 Heart failure chronicity: acute on chronic Heart failure type: diastolic NSTEMI (non-ST elevated myocardial infarction) I21.4 Multiple myeloma C90.00
--- NOTE | 2019-12-08 19:24 | PC.NURSE ---
1924-- RADIOLOGY HERE FOR CXR POST INTUBATION NO CHANGES NOTED FOR PT. NOREPINEPHRINE INFUSING & LASIX 40MG GIVEN PER DR QUINONES
--- NOTE | 2019-12-08 19:36 | PM.ACPR ---
Procedure/Consent Time out: Time Out Performed: Yes Consent: Consent for Procedure: Consent obtained from other (indicate) Additional Consent Information: Daughter Acute Procedures Epistaxis Control: Time out performed: Yes Intubation: Time out performed: Yes Sedative: versed Paralytic: succinylcholine Laryngoscope: fiber optic video scope ET tube size: 8 ET tube uncuffed: Yes Tube secured depth (cm): 23 Tube secured location: lips Tube placement confirmation: visualized tube passing through cords, equal breath sounds bilaterally, no breath sounds over epigastrium and color change noted Patient tolerated procedure: well Intubation complications: none
[2019-12-08 20:48] LABS: Glucose Point of Care 84 mg/dL (70-110)
[2019-12-08 21:05] LABS: ABG PCO2 26.6 mmHg (35-45); ABG PH Result 7.46 (7.35-7.45); Blood Gas Sample Type Arterial; HCO3 ABG 18.8 mmol/L (22-26); PO2 ABG 90.4 mmHg (80.0-100.0)
[2019-12-08 21:06] LABS: Blood Gas Sample Site Brachial, right; Oxygen Device VENT
[2019-12-09] VITALS (44 sets, daily range): BP systolic 92–131; BP diastolic 36–65; PULSE 58–77; RESP 12–22; TEMP 37.1–37.8; O2SAT 94–99
[2019-12-09] MEDS: enoxaparin 80 mg/0.8 mL Syringe SUBCUT (00:10)
[2019-12-09] MEDS: fentaNYL 50 mcg/mL INJ 2mL 25 MCG IVP ×6 (01:55→20:59)
[2019-12-09] MEDS: dexmedetomidine 400 MCG in sodium chloride 0.9% (100 ml) 100 ML 8.5 MCG IV (03:48)
[2019-12-09] MEDS: calcitonin,salmon 200 unit/mL SDV 2mL 320 UNIT SUBCUT (04:57)
[2019-12-09 05:02] LABS: Basophils % 0.2 %; Eosinophils % 0.3 %; Hematocrit 26.5 % (37.0-47.0); Hemoglobin 7.9 g/dL (11.5-15.3); Lymphocytes # 1.3 10^3/uL (0.8-4.8); Lymphocytes % 19.2 %; Mean Corpuscular HGB Conc 29.8 g/dL (30.0-36.0); Mean Corpuscular Hemoglobin 31.7 pg (28.0-34.0); Mean Corpuscular Volume 106.4 fL (81-99); Mean Platelet Volume 11.5 fL (7.4-10.4); Monocytes # 0.9 10^3/uL (0.2-0.9); Monocytes % 13.1 %; Neutrophils # 4.28 10^3/uL (1.8-7.7); Neutrophils % 65.1 %; Nucleated Red Blood Cells % 0.3 %; Platelet Count 95 10^3/cmm (130-400); Red Blood Count 2.49 10^6/uL (4.1-5.3); White Blood Count 6.6 10^3/uL (4.0-10.0)
[2019-12-09 05:06] LABS: INR 2.12 (0.8-1.2)
[2019-12-09 05:07] LABS: Partial Thromboplastin Time 61.4 SECONDS (23.9-36.7)
[2019-12-09 05:19] LABS: Alanine Aminotransferase 22 U/L (0-33); Albumin Level 2.2 g/dL (3.5-5.2); Alkaline Phosphatase 41 IU/L (35-105); Blood Urea Nitrogen 19 mg/dL (8-23); Calcium 10.9 mg/dL (8.5-10.5); Carbon Dioxide 16 mmol/L (22-29); Chloride 107 mmol/L (98-107); Chol HDL Ratio 2.12 mg/dL (0.0-4.40); Cholesterol 36 mg/dL (0-200); Globulin 7.1 g/dL (1.3-4.6); Glucose 111 mg/dL (65-115); HDL Cholesterol 17 mg/dL (60-100); LDL Cholesterol Calculated 9 mg/dL (50-129); LDL HDL Ratio 0.53 RATIO (0.00-3.22); Magnesium 1.4 mg/dL (1.7-2.3); Osmolality Calculated 287 mOsm/kg (285-295); Phosphorus 5.4 mg/dL (2.5-4.5); Sodium 137 mmol/L (136-145); Total Bilirubin 0.9 mg/dL (0.15-1.2); Total Protein 9.3 g/dL (6.6-8.7); Triglycerides 49 mg/dL (0-150)
[2019-12-09 05:21] LABS: Anion Gap 18.2 (5-19); Aspartate Amino Transferase 68 U/L (0-32); Potassium 4.2 mmol/L (3.5-5.1)
--- NOTE | 2019-12-09 06:00 | USCV_ITS ---
Alta Red Age: 84 Gender: F : 1935 Exam Date: 12/09/2019 07:58 Ordering Phys: Gonzalez Howard MD Technologist: Aron Farr [place]am [place] [facility] [place]: SOB BP: 113 / 41 HR: 65 Rhythm: Sinus Technical Quality: Adequate MEASUREMENTS (Male / Female) Normal Values 2D ECHO LV Diastolic Diameter PLAX 5.0 cm 4.2 - 5.9 / 3.9 - 5.3 cm LV Systolic Diameter PLAX 2.9 cm IVS Diastolic Thickness 0.9 cm 0.6 - 1.0 / 0.6 - 0.9 cm IVS Systolic Thickness 1.8 cm LVPW Diastolic Thickness 1.5 cm 0.6 - 1.0 / 0.6 - 0.9 cm LVPW Systolic Thickness 1.5 cm LVOT Diameter 2.0 cm LV Ejection Fraction 2D Teich 73.2 % LV Ejection Fraction MOD 2C 43.9 % LV Ejection Fraction 2C AL 43.8 % LA Diameter 4.0 cm LA Width 4.3 cm LA Height 6.7 cm RA Width 4.7 cm RA Height 5.3 cm M-MODE LV Diastolic Diameter MM 5.0 cm 4.2 - 5.9 / 3.9 - 5.3 cm LV Systolic Diameter MM 3.4 cm LV Ejection Fraction MM Teich 61.7 % IVS Diastolic Thickness MM 1.4 cm 0.6 - 1.0 / 0.6 - 0.9 cm IVS Systolic Thickness MM 1.6 cm LVPW Diastolic Thickness MM 1.4 cm 0.6 - 1.0 / 0.6 - 0.9 cm LVPW Systolic Thickness MM 2.1 cm RV Diastolic Diameter MM 1.7 cm Aortic Annulus Diameter 3.6 cm LA Ao Ratio MM 1.1 MV E Point Septal Separation 0.6 cm DOPPLER AV Peak Velocity 121.0 cm/s LVOT Peak Velocity 100.0 cm/s AV Area Cont Eq vti 3.2 cm squared AV Area Cont Eq pk 2.7 cm squared MV Area PHT 5.0 cm squared Mitral E to A Ratio 1.3 MV E' Velocity 76.5 cm/s Mitral E to MV E' Ratio 20.9 Mitral E to LV E' Lateral Ratio 19.8 Mitral E to LV E' Septal Ratio 22.5 TR Peak Velocity 157.3 cm/s TR Peak Gradient 9.9 mmHg TV Peak E Velocity 106.0 cm/s Right Atrial Pressure 15.0 mmHg Pulmonary Artery Systolic Pressu 24.9 mmHg PV Peak Velocity 114.0 cm/s FINDINGS Left Ventricle Normal left ventricular size. LV systolic function is mildly reduced with EF of 40-45 %. Mild to moderate hypokinesis of mid to apical inferior septal and anteroseptal luevano. Mild LVH is noted. Grade 2 diastolic dysfunction with elevated filling pressures is present. Right Ventricle The right ventricle is normal in size and function. Right Atrium The right atrium is normal in size. Left Atrium The left atrium is enlarged Mitral Valve Thickened mitral valve. Moderate mitral annular calcification is seen. Aortic Valve Thickened aortic valve. There is trace aortic regurgitation. Tricuspid Valve Structurally normal tricuspid valve without significant stenosis or regurgitation. RVSP is 20-25 mmHg. Pulmonic Valve Structurally normal pulmonic valve without significant stenosis. There is trace pulmonic regurgitation. Pericardium Normal pericardium without effusion. Aorta Normal ascending aorta dimension. CONCLUSIONS LV systolic function is mildly reduced with EF of 40 to 45%. Above-mentioned wall motion abnormalities are seen. Grade 2 diastolic dysfunction with elevated filling pressures. Trace aortic regurgitation is present. Compared to prior study from 05/17/2019, mild reduction in LV systolic function is noted. Elevated filling pressures now present. Jason Aguilar MD (Electronically Signed) Final Date: 09 December 2019 09:34 S
[2019-12-09] MEDS: FUROsemide 10 mg/mL SDV 4mL 40 MG IVP (07:23)
[2019-12-09] MEDS: metoprolol tartrate 25 mg Tablet 12.5 MG PO ×2 (07:23→20:58)
[2019-12-09] MEDS: potassium chloride premix 100 ML 50 MEQ IV (07:33)
[2019-12-09] MEDS: magnesium sulfate premix 4 GM/100 ML PREMIX IV (07:34)
[2019-12-09] MEDS: acetaminophen 325 mg Tablet 650 MG PO (08:46)
[2019-12-09] MEDS: levothyroxine 150 mcg Tablet PO (08:46)
[2019-12-09] MEDS: potassium chloride ER 10 mEq Tablet 20 MEQ PO (08:46)
[2019-12-09] MEDS: atorvastatin 40 mg Tablet 80 MG PO (08:46)
[2019-12-09] MEDS: isosorbide mononitrate 20 mg Tablet 30 MG PO (08:46)
[2019-12-09] MEDS: aspirin 325 mg Tablet PO (08:46)
[2019-12-09] MEDS: pantoprazole 40 mg SDV IVP (08:59)
--- NOTE | 2019-12-09 09:05 | PM.PN ---
Subjective Subjective: Interval history: This is an 84-year-old white female, is admitted to hospital with acute respiratory failure. Was found to have features of acute on chronic diastolic heart failure, non-ST elevation myocardial infarction and possible right lower lobe pneumonia. She is currently intubated. She is on 40% FiO2. Her urine output is relatively low. She is IV antibiotics, Lasix, subcu Lovenox and on the preadmission medications. Medications: Reviewed: Yes Medication Review Details: Current Medications Acetaminophen (Tylenol) 650 mg PO Q6H PRN PRN Reason: Mild/Mod Pain Or Temp >/= 101 Last Admin: 12/09/19 08:46 Dose: 650 mg Documented by: Hydrocodone Bitart/Acetaminophen (Tobias 5-325 Mg) 1 tab PO Q4H PRN PRN Reason: MODERATE TO SEVERE PAIN Albuterol Sulfate (Albuterol) 2.5 mg INHALATION Q4H.RESPIRATORY PRN PRN Reason: SHORTNESS OF BREATH Albuterol/Ipratropium (Duoneb) 3 ml INHALATION Q4H PRN PRN Reason: SHORTNESS OF BREATH Last Admin: 12/08/19 17:00 Dose: 3 ml Documented by: Aspirin (Aspirin) 325 mg PO DAILY [facility] Last Admin: 12/09/19 08:46 Dose: 325 mg Documented by: Atorvastatin Calcium (Lipitor) 80 mg PO DAILY [facility] Last Admin: 12/09/19 08:46 Dose: 80 mg Documented by: Bisacodyl (Dulcolax) 10 mg PO DAILY PRN PRN Reason: CONSTIPATION Dextrose (D50w) 25 ml IVP ONCE PRN; Protocol PRN Reason: hypoglycemia protocol Dextrose (D50w) 50 ml IVP PRN PRN; Protocol PRN Reason: hypoglycemia protocol Enoxaparin Sodium (Lovenox) 80 mg SUBCUT Q12H [facility] Last Admin: 12/09/19 00:10 Dose: 80 mg Documented by: Fentanyl (Sublimaze) 25 mcg IVP Q4H PRN PRN Reason: SEVERE PAIN Last Admin: 12/09/19 07:26 Dose: 25 mcg Documented by: Furosemide (Lasix) 40 mg IVP Q12H [facility] Last Admin: 12/09/19 07:23 Dose: 40 mg Documented by: Glucagon (Glucagen) 1 mg IM ONCE PRN; Protocol PRN Reason: Adult Acute Hypoglycemia Prot. Hydromorphone HCl (Dilaudid Tab) 2 mg PO Q6H PRN PRN Reason: SEVERE PAIN Azithromycin 500 mg/ Sodium (Chloride) 250 mls @ 250 mls/hr IV Q24H SAÚL; Protocol Last Infusion: 12/08/19 21:06 Dose: Infused Documented by: Dextrose (D5w) 500 mls @ 100 mls/hr IV ONCE PRN; Protocol PRN Reason: Adult Acute Hypoglycemia Prot Imipenem/Cilastatin Sodium 250 (mg/ Sodium Chloride) 100 mls @ 200 mls/hr IV Q8H SAÚL; Protocol Last Admin: 12/09/19 06:06 Dose: 200 mls/hr Documented by: Dexmedetomidine HCl 400 mcg/ (Sodium Chloride) 104 mls @ 0 mls/hr IV .Q0M SAÚL; Protocol Last Admin: 12/09/19 03:48 Dose: 0.4 mcg/kg/hr, 8.5 mls/hr Documented by: Norepinephrine Bitartrate 4 mg (/ Dextrose) 254 mls @ 0 mls/hr IV .Q0M SAÚL; Protocol Last Titration: 12/09/19 08:59 Dose: 0 mcg/min, 0 mls/hr Documented by: Vancomycin HCl 1,250 mg/ (Sodium Chloride) 250 mls @ 200 mls/hr IV Q18H [facility] Last Infusion: 12/08/19 22:10 Dose: Infused Documented by: Magnesium Sulfate (Magnesium Sulfate Premix) 4 gm in 100 mls @ 50 mls/hr IV ONCE ONE Stop: 12/09/19 09:29 Last Admin: 12/09/19 07:34 Dose: 50 mls/hr Documented by: Potassium Chloride (K-Patric Premix) 100 mls @ 50 mls/hr IV ONCE ONE Stop: 12/09/19 09:29 Last Admin: 12/09/19 07:33 Dose: 50 mls/hr Documented by: Insulin Aspart (Novolog) 0 unit SUBCUT WM&BEDTIME [facility]; Protocol Last Admin: 12/09/19 08:41 Dose: Not Given Documented by: Isosorbide Mononitrate (Ismo) 30 mg PO DAILY [facility] Last Admin: 12/09/19 08:46 Dose: 30 mg Documented by: Levothyroxine Sodium (Synthroid) 150 mcg PO DAILY [facility] Last Admin: 12/09/19 08:46 Dose: 150 mcg Documented by: Metoprolol Tartrate (Lopressor) 12.5 mg PO Q12H [facility] Last Admin: 12/09/19 07:23 Dose: 12.5 mg Documented by: Naloxone HCl (Narcan) 0.1 mg IVP Q2M PRN PRN Reason: OPIATERV Ondansetron HCl (Zofran) 4 mg IVP Q8H PRN PRN Reason: vomiting, or N/V if npo Pantoprazole Sodium (Protonix) 40 mg IVP DAILY [facility] Last Admin: 12/09/19 08:59 Dose: 40 mg Documented by: Potassium Chloride (Klor-Con 10) 20 meq PO DAILY [facility] Last Admin: 12/09/19 08:46 Dose: 20 meq Documented by: Vitals/I&O/Wt Last Vital Signs Temp 100.1 F H 12/09/19 08:00 Pulse 65 12/09/19 08:00 Resp 12 12/09/19 08:00 BP 115/42 12/09/19 08:00 Pulse Ox 99 12/09/19 08:00 12/08/19 12/09/19 12/09/19 22:59 06:59 14:59 Intake Total 616.914 / 666.914 176.358 / 843.272 204.060 / 204.060 Output Total 510 / 510 100 / 610 150 / 150 Balance 106.914 / 156.914 76.358 / 233.272 54.060 / 54.060 Weight last 48 hrs Weight 171 lb 3.2 oz Weight 180 lb Physical Exam Narrative: EXAM NARRATIVE: GENERAL: The patient is intubated and sedated HEENT: Minimal pallor. No icterus or lymphadenopathy.Oral cavity: There are no mucous membrane lesions. NECK: Trachea appears to be central. No masses noted. No JVD or thyromegaly appreciated. RESPIRATORY: Chest is symmetrical. No intercostals muscle retraction or any accessory muscle activation. There is no chest wall tenderness. Breath sounds are heard bilaterally. No rales or rhonchi heard. No evidence of any consolidation. BREASTS: Deferred. HEART: The heart sounds are normal. No S3 or S4. Short murmur in the left sternal border. No diastolic murmurs. No pericardial rub ABDOMEN: No vessel pulsations or distention. No tenderness. No organomegaly appreciated. Bowel sounds are normally heard. : Deferred. RECTAL: Deferred. LYMPHATIC: No lymphadenopathy noted in the neck . EXTREMITIES: No edema or cyanosis. No clubbing. Peripheral pulses are palpated in fairly good volume and amplitude MUSCULOSKELETAL: No acute joint deformities or swelling SKIN: There are no significant rashes or ecchymosis NEUROPSYCHIATRIC: The patient is intubated and sedated. Seems to be moving all extremities. Urinary Catheter Management^: Johnson: Cath Placed During This Visit: yes Reason for Continuing Indwelling Catheter: Accurate Measurement of Urinary Output in Critically Ill Patients Urinary Catheter Date of Insertion: 12/08/19 Urinary Catheter Time of Insertion: 10:00 Data : 12/10/19 03:00 12/10/19 03:00 Other Labs: Myocardial perfusion imaging on 10/22/2019 1. Myocardial perfusion may revealing a small area of reversible defect in the mid inferolateral and apical lateral region, suggestive of ischemia in the distribution of the left circumflex artery. 2. Normal LV ejection fraction of 69%. 3. LV wall motion analysis revealing no gross wall motion normalities. 4. Normal LV volume. Chest x-ray from 12/08/2019 Findings extensive right-sided airspace consolidation/pneumonic infiltrate is unchanged compared to the prior CT scan. Patchy airspace opacities in the left lung are unchanged. Pleural space: There is a small right pleural effusion. Heart/Mediastinum: The heart is enlarged. Bones/joints: No acute abnormality. IMPRESSION: 1. There is an ET tube with tip at the clavicular heads an orogastric tube with tip off the film. 2. Unchanged airspace opacities in the lungs concerning for pneumonic infiltrates right greater than left. Micro: Microbiology 12/08/19 16:30 Gram Stain - Final Sputum - Endotracheal Tube Aspirate 12/08/19 11:26 Blood Culture - Preliminary Blood SPECIMEN COLLECTED 12/08/19 09:17 Blood Culture - Preliminary Blood SPECIMEN COLLECTED A&P Assessment and plan (1) Acute diastolic heart failure: Clinically she seems to be compensated. She does not appear to be fluid overloaded. May continue careful IV diuresis. Status: Acute (2) Acute respiratory failure with hypoxia: Patient is currently intubated and sedated. Management as per the primary. Status: Acute (3) NSTEMI (non-ST elevated myocardial infarction): In view of the patient's recurrent non-ST elevation myocardial infarction and the abnormal myocardial perfusion imaging, she may require a cardiac catheterization, sometime down the line, unless she develops chest pain or any hemodynamic compromise while being intubated. May continue on the current medications for the time being. Her platelet count has dropped. This needs to be closely monitored. Status: Acute (4) Multiple myeloma: In view of her elevated creatinine, coronary angiogram could worsen the kidney function. This will be a concern. Need to discuss more about this when we consider the coronary angiogram. Status: Acute Qualifiers: Multiple myeloma remission status: not in remission Qualified Code(s): C90.00 - Multiple myeloma not having achieved remission (5) Abnormal cardiovascular stress test: Patient has a small area of ischemia based on the perfusion scan. However because of the recurrent non-ST relation myocardial infarction, complicated with a diastolic heart failure, need to consider further cardiac work-up. Status: Acute Additional A&P Information The other problems are #1 anemia #2 thrombocytopenia #3 chronic renal insufficiency #4 history of essential hypertension, currently normotensive #5 type 2 diabetes #6 dyslipidemia #7 hypothyroidism based on the patient's clinical progress, further recommendations will be made. Attestations Medical Necessity Statement*: Patient requires continued hospital stay for close monitoring and further management Coding Level of Care Code Acute Catalyst Unit Operator for [facility] Diagnoses Acute diastolic heart failure I50.31 Acute respiratory failure with hypoxia J96.01 NSTEMI (non-ST elevated myocardial infarction) I21.4 Multiple myeloma C90.00 Multiple myeloma remission status: not in remission Abnormal cardiovascular stress test R94.39
--- NOTE | 2019-12-09 10:16 | PC.CHAP ---
Pastoral Care Encounter/Spiritual Assessment Type of Contact [] Declined piler visit [] Patient/Family/Request visit [] Outpatient visit [] Follow-up visit [] Physician referral [] Code/Alert [] Routine visit [] Staff referral [] Actively dying [] Patient sleeping [] Family support [] [] Out of room [] Palliative care [] [] Receiving care in room [] Pre-surgical visit [] Trauma [] Long length of stay [] ICU visit [x] Other: ventilator Relational/Emotional Strength [] Patient feels connected with others/family/visitors/staff [] Distress [] Loneliness/isolation [] Abandonment Spirituality of Patient [] Person of Lia [] Attends Gnosticist of their Lia [] Believes in Prayer [] Reads Bible or Sikh materials [] There are Spiritual issues to be addressed Sports Photographer 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 [x] Prayer [] Active listening [] Non-anxious presence [] Spiritual/emotional support [] Crisis/trauma care [] Spiritual counseling [] Bereavement support [] Provided bereavement packet [] Provided Bible/devotional materials [] Provided toy/stuffed animal, coloring book to patient or family member [] Provided Communion [] Anointing/[place] [] Salvation [x] Completed spiritual assessment [] Other: Impact on Illness or Injury [] Angry [] Fearful [] Anxious [] Often cries [] Exhaustion [] Unable to work [] Unable to attend gnosticism [] Unable to walk/stand [] Unable to read [] Unable to drive [] Unable to eat/drink [] Unable to sleep [] Unable to be with family [] Patient intubated [] Other: Summary Time spent with patient
[2019-12-09 10:35] LABS: Bilirubin Urine Neg (Negative); Blood Urine 2+ (Negative); Glucose Urine UA Norm (Normal); Ketones Urine 1+ (Negative); Leukocyte Esterase Urine 2+ (Negative); Nitrate Urine Negative (Negative); Protein Urine Trace (Negative); Specific Gravity, Urine 1.025 (1.005-1.030); Urine Appearance Cloudy (CLEAR); Urine Color Dark Yellow (Yellow); Urobilinogen Urine Norm (Negative); pH Urine 5 (5-7)
[2019-12-09 10:37] LABS: SARS Covid-2 Antigen Negative (Negative)
[2019-12-09 10:37] LABS: Add Urine Culture? No; Bacteria Urine 2+ /hpf
--- NOTE | 2019-12-09 10:56 | PM.PN ---
Subjective Subjective: Interval history: Hospital course, chart reviewed. On examination patient is intubated and sedated. But is able to wake up to follow simple commands. Continue she is on FiO2 of 50%, tidal volume of 450, PEEP of 10. Patient T-max in last 24 hours 100.1 Fahrenheit. Patient has remained hemodynamically stable. Vitals/I&O/Wt Last Vital Signs Temp 100.1 F H 12/09/19 08:00 Pulse 58 L 12/09/19 10:00 Resp 18 12/09/19 10:00 BP 92/36 12/09/19 10:00 Pulse Ox 98 12/09/19 10:00 12/08/19 12/09/19 12/09/19 22:59 06:59 14:59 Intake Total 616.914 / 666.914 176.358 / 843.272 404.060 / 404.060 Output Total 510 / 510 100 / 610 150 / 150 Balance 106.914 / 156.914 76.358 / 233.272 254.060 / 254.060 Weight last 48 hrs Weight 77.655 kg Weight 81.647 kg Physical Exam Narrative: EXAM NARRATIVE: General: Sedated on ventilator, awakens to verbal stimulus, following simple commands HEENT: PERRLA, pupils bilaterally equal and reactive Chest: Bronchial breath sounds with coarse crepitations present in right middle zone, equal good air entry bilaterally CVS: S1-S2 regular, no murmurs, no tachycardia, no gallops, no rubs Abdomen: Soft, nontender, no organomegaly, bowel sounds present Neuro: No focal deficits, no facial deformity, AO x3, power 5/5 in all limbs Urinary Catheter Management^: Johnson: Cath Placed During This Visit: yes Reason for Continuing Indwelling Catheter: Accurate Measurement of Urinary Output in Critically Ill Patients Urinary Catheter Date of Insertion: 12/08/19 Urinary Catheter Time of Insertion: 10:00 Data : 12/09/19 18:10 12/09/19 04:15 Micro: Microbiology 12/08/19 09:17 Blood Culture - Preliminary Blood NEGATIVE TO DATE 12/08/19 16:30 Gram Stain - Final Sputum - Endotracheal Tube Aspirate 12/08/19 11:26 Blood Culture - Preliminary Blood SPECIMEN COLLECTED A&P Assessment and plan (1) Acute respiratory failure with hypoxia: Acute hypoxic respiratory failure secondary to heart failure with preserved ejection fraction exacerbation/PNA. ABG: pH:7.28, PCO2: 35, PO2: 74, FiO2: 60% Currently on BiPAP. Continue Lasix 40 mg IV every 12 hours, as well as, Currently on vancomycin, imipenem and Zosyn. Status: Acute (2) Pneumonia: Currently on vancomycin, imipenem and Zosyn Status: Acute Qualifiers: Laterality: bilateral Lung location: unspecified part of lung Pneumonia type: due to unspecified organism Qualified Code(s): J18.9 - Pneumonia, unspecified organism (3) NSTEMI (non-ST elevated myocardial infarction): Delta troponin at 2-hour: 55 with baseline troponin : 44 , 2-hour troponin: 99. EKG: ECTOPIC ATRIAL TACHYCARDIA MARKED LEFT AXIS DEVIATION [QRS AXIS < -30] PATTERN CONSISTENT WITH PULMONARY DISEASE MODERATE INTRAVENTRICULAR CONDUCTION DELAY [110+ ms QRS DURATION] ST DEVIATION AND MODERATE T-WAVE ABNORMALITY, CONSIDER LATERAL ISCHEMIA. Plan 325 mg one-time oral dose: Aspirin 81 mg oral daily Lovenox 80 every 12 hours daily Atorvastatin 80 Mg oral daily 2D echo Trend troponin Serial EKG Consult cardiology Status: Acute (4) Heart failure: presents to the emergency room with chief complaints of worsening shortness of breath, and nonproductive cough, since yesterday, daughter was able by the bedside, and history was provided by her as well as the patient. She was also complaining of, lethargy, generalized weakness, subjective fever, cold. Xray chest: Bilateral pulmonary congestion proBNP: 7251 Lasix 40 mg I.V q12 h daily. Hold Metoprol Continue ISMN 30 MG Oral daily Strict intake output Daily weight Fluid restriction Status: Acute Qualifiers: Heart failure chronicity: acute on chronic Heart failure type: diastolic Qualified Code(s): I50.33 - Acute on chronic diastolic (congestive) heart failure (5) Hypercalcemia: Hypercalcemia of malignancy: Corrected calcium: 12.8 Will give her calcitonin as well as pamidronate Status: Acute (6) Multiple myeloma: Status: Acute (7) Acute kidney injury: Status: Acute (8) Sepsis: Status: Acute Qualifiers: Acute respiratory failure type: with hypoxia Sepsis acute organ dysfunction status: with acute organ dysfunction Sepsis type: sepsis due to unspecified organism Severe sepsis acute organ dysfunction type: acute respiratory failure Severe sepsis shock status: without septic shock Qualified Code(s): A41.9 - Sepsis, unspecified organism; R65.20 - Severe sepsis without septic shock; J96.01 - Acute respiratory failure with hypoxia (9) Thrombocytopenia: Status: Acute (10) Hypothyroidism: Levothyroxine 150 mcg oral daily Status: Acute Additional A&P Information Sepsis with acute respiratory hypoxic failure: Sepsis ruled in because of leukocytosis, lactic acidosis, fever more than 101 on admission. Respiratory failure multifactorial because of pneumonia. Patient is in ARDS survivor from April 2019 when she was intubated for 3 to 4 days. That time she had strep pneumonia. Currently patient is on vancomycin, imipenem, azithromycin. Day 2 of treatment. Check bacterial antigen, urine Legionella. We will continue to follow sputum culture. Check MRSA swab. COVID-19 rapid antigen negative on admission. Will repeat. Budesonide twice daily, DuoNebs every 6 hours for now. We will consult pulmonology. Patient CT scan results appreciated. CT scan does show bilateral consolidation which could be reactive adenopathy but cannot rule out consolidations. If patient does not improve patient might require bronchoscopy. Continue with Precedex for now. Patient is well sedated and calm. We will start fentanyl 25 mcg every hourly as needed for pain. Hypercalcemia/multiple myeloma: Patient got pamidronate 90 mg yesterday. Case discussed with Dr. Reid. Recommends a dose of dexamethasone as well. We will continue to monitor calcium daily. Corrected calcium today more than 13. For now we will hold off on treatment for multiple myeloma. NSTEMI: Patient does have a history of NSTEMI in April as well. Subsequent Lexiscan in September 2019 showed a small area of decreased tracer uptake in mid inferior lateral and apical lateral region. Echocardiogram done earlier in this admission showed 40 to 45% with grade 2 diastolic dysfunction with mild LVH with regional wall motion abnormality into mid to apical inferior septum anterior septal luevano. With a decrease in EF since last echocardiogram in April. Continue with aspirin. We will decrease the dose of statin to 20 mg as per the lipid panel results. Patient is on full dose of Lovenox. Patient's platelet counts are trending down. For now hold off any further diuresis. Will dose Lasix accordingly tomorrow. Repeat chest x-ray tomorrow morning. Thrombocytopenia: Platelet count down to 90,000 from 161 yesterday. In April patient's platelet count rebounded to 35,000. Cannot rule out heparin-induced thrombocytopenia. Will check HIT panel. Continue to monitor platelet counts and hemoglobin daily for now. Anemia: Check iron panel: Patient's hemoglobin is less than 8. Will transfuse 1 unit of PRBC. Continue to monitor hemoglobin daily. Check stool for occult blood. Hypertension: Goal blood pressure less than 140/90 mmHg keeping mean over 60 mmHg. Continue with home dose of metoprolol 12.5 mg twice daily. We will decrease the dose of Imdur to 50 mg daily. We will continue to monitor blood pressures. APOLONIA: Multifactorial. Secondary to sepsis, NSTEMI along with multiple contrast studies on admission. For now stop any further Lasix. Patient did receive 40 mg of IV Lasix earlier today morning. Start patient on gentle IV hydration at 50 cc/h. Continue to monitor urine output. We will repeat chest x-ray tomorrow morning. Hypothyroidism/elevated free TSH: Check free T3, free T3-4. TSH not more than 10. For now we will will monitor the results and increase the dose of levothyroxine accordingly. Currently patient is on levothyroxine 150 mcg daily. Code Status : Full code DVT PPX: Lovenox Goals of care: Had extensive discussion with patient's daughter and patient at bedside. Discussed that at baseline patient is severely ill because of multiple myeloma for which she has failed multiple chemotherapy lines in the past along with patient being in ARDS survivor in April along with patient having recurrent NSTEMI and possible heparin-induced number cytopenia at present. Risk to discuss that at this makes it difficult to treat the patient as patient is requiring Lovenox will have to monitor hemoglobin and platelet count very closely. Also discussed that patient is having an extensive pneumonia on the right side which could be reactionary but cannot rule out bacterial pneumonia. Also discussed that patient might require bronchoscopy going forward. Also discussed the CODE STATUS. Family will discuss among themselves and let me know regarding further CODE STATUS. For now patient is full code. Attestations Medical Necessity Statement*: Hypoxic respiratory failure with sepsis, NSTEMI, hypercalcemia, multiple myeloma, thrombocytopenia, possible heparin-induced thrombocytopenia, APOLONIA Critical Care Time: Critical Care Time (min): 90 Coding Level of Care Code Acute Delivery And Installation Subcontractor for [facility] Diagnoses Acute respiratory failure with hypoxia J96.01 Pneumonia J18.9 Laterality: bilateral Lung location: unspecified part of lung Pneumonia type: due to unspecified organism NSTEMI (non-ST elevated myocardial infarction) I21.4 Heart failure I50.33 Heart failure chronicity: acute on chronic Heart failure type: diastolic Hypercalcemia E83.52 Multiple myeloma C90.00 Acute kidney injury N17.9 Sepsis A41.9; R65.20; J96.01 Acute respiratory failure type: with hypoxia Sepsis acute organ dysfunction status: with acute organ dysfunction Sepsis type: sepsis due to unspecified organism Severe sepsis acute organ dysfunction type: acute respiratory failure Severe sepsis shock status: without septic shock Thrombocytopenia D69.6 Hypothyroidism E03.9
[2019-12-09 11:20] LABS: Glucose Point of Care 119 mg/dL (70-110)
[2019-12-09] MEDS: sodium chloride 0.9% 1,000 ML 50 ML IV (11:27)
[2019-12-09] MEDS: dexamethasone 10 mg/mL INJ IVP (11:38)
[2019-12-09 11:56] LABS: Glucose Point of Care 112 mg/dL (70-110)
[2019-12-09 12:42] LABS: Influenza A by IFA Negative (Negative); Influenza B by IFA Negative (Negative); Rapid Strep A Test Negative (Negative)
--- NOTE | 2019-12-09 12:54 | PC.NURSE ---
Call to Physician Call to . informed of nurse suctioning patient and getting madelyn red blood from ett. patient awake, precedex drip increased. verbal order to hold 1PM dose of lovenox. Dr to come see.
[2019-12-09] MEDS: ipratropium-albuterol 3 mL Neb INHALATION ×2 (14:08→19:59)
[2019-12-09] MEDS: sodium chloride 0.9% (100 ml) 100 ML 150 ML (14:15)
[2019-12-09] MEDS: azithromycin 500 MG in sodium chloride 0.9% 250 ML 250 MG IV (14:43)
--- NOTE | 2019-12-09 15:48 | PC.NURSE ---
Call to Physician prior to administration of blood, patient had diminished lung sounds throughout. upon assessment of patient, patient now has coarse crackles with rhonci present. second nurse verified. Blood products decreased from 125mls/hr to 100mls/hr. Call to . informed Dr of patient lung sound change, vital signs, UA output, fluid amount in. Verbal order for NS to be stopped after blood and no new orders. will continue to monitor.
[2019-12-09 16:51] LABS: Glucose Point of Care 180 mg/dL (70-110)
[2019-12-09] MEDS: dexmedetomidine 400 MCG in sodium chloride 0.9% (100 ml) 100 ML 10.6 MCG IV (16:55)
[2019-12-09 18:14] LABS: Hematocrit 30.3 % (37.0-47.0); Hemoglobin 9.4 g/dL (11.5-15.3)
[2019-12-09] MEDS: budesonide 0.5 mg/2 mL Neb INHALATION (19:58)
[2019-12-09] MEDS: vancomycin 1,000 MG in sodium chloride 0.9% 250 ML 250 MG IV (20:57)
[2019-12-09] MEDS: dexamethasone 4 mg/mL INJ 6 MG IVP (20:58)
[2019-12-09 23:39] LABS: Glucose Point of Care 166 mg/dL (70-110)
[2019-12-09 23:55] LABS: Procalcitonin 50.43 ng/mL (0-0.5)
[2019-12-10] VITALS (42 sets, daily range): BP systolic 108–130; BP diastolic 49–69; PULSE 57–74; RESP 12–23; TEMP 36.2–37.3; O2SAT 93–100
[2019-12-10 00:06] LABS: Iron 24 ug/dL (37-145)
[2019-12-10 00:40] LABS: Free T4 Free Thyroxine 1.27 ng/dL (0.82-1.77); T3 Free 1.1 PG/ML (2.0-4.4)
[2019-12-10 01:20] LABS: Percent Saturation 11.5 % (20-50); Total Iron Binding Capacity 207 mcg/dl; Unsaturated Iron Binding 183 ug/dL (112-347)
[2019-12-10] MEDS: fentaNYL 50 mcg/mL INJ 2mL 25 MCG IVP ×7 (01:20→21:30)
[2019-12-10] MEDS: acetaminophen 325 mg Tablet 650 MG PO (01:21)
[2019-12-10] MEDS: ipratropium-albuterol 3 mL Neb INHALATION ×4 (02:41→20:23)
[2019-12-10 03:34] LABS: Basophils # 0.1 10^3/uL (0.0-0.1); Basophils % 0.7 %; Eosinophils % 0.3 %; Hematocrit 30.6 % (37.0-47.0); Hemoglobin 9.5 g/dL (11.5-15.3); Lymphocytes # 1.3 10^3/uL (0.8-4.8); Lymphocytes % 17.5 %; Mean Corpuscular Hemoglobin 31.3 pg (28.0-34.0); Mean Corpuscular Volume 100.7 fL (81-99); Mean Platelet Volume 10.9 fL (7.4-10.4); Monocytes # 0.7 10^3/uL (0.2-0.9); Monocytes % 9.2 %; Neutrophils % 69.9 %; Nucleated Red Blood Cells % 0.4 %; Platelet Count 98 10^3/cmm (130-400); Red Blood Count 3.04 10^6/uL (4.1-5.3); Red Cell Distribution Width 21.2 % (12.1-15.1); White Blood Count 7.4 10^3/uL (4.0-10.0)
[2019-12-10 04:03] LABS: Alanine Aminotransferase 43 U/L (0-33); Albumin Level 1.8 g/dL (3.5-5.2); Alkaline Phosphatase 47 IU/L (35-105); Anion Gap 15.3 (5-19); Aspartate Amino Transferase 93 U/L (0-32); Blood Urea Nitrogen 35 mg/dL (8-23); Calcium 10.8 mg/dL (8.5-10.5); Carbon Dioxide 18 mmol/L (22-29); Chloride 107 mmol/L (98-107); Globulin 7.3 g/dL (1.3-4.6); Glucose 180 mg/dL (65-115); Magnesium 2.4 mg/dL (1.7-2.3); Osmolality Calculated 295 mOsm/kg (285-295); Phosphorus 4.3 mg/dL (2.5-4.5); Potassium 4.3 mmol/L (3.5-5.1); Sodium 136 mmol/L (136-145); Total Bilirubin 0.9 mg/dL (0.15-1.2); Total Protein 9.1 g/dL (6.6-8.7)
[2019-12-10] MEDS: dexmedetomidine 400 MCG in sodium chloride 0.9% (100 ml) 100 ML 10.6 MCG IV (04:13)
[2019-12-10 04:50] LABS: ABG PCO2 29.4 mmHg (35-45); ABG PH Result 7.43 (7.35-7.45); Blood Gas Sample Site Brachial, right; Blood Gas Sample Type Arterial; HCO3 ABG 19.5 mmol/L (22-26); Oxygen Device VENT; PO2 ABG 72.4 mmHg (80.0-100.0)
--- NOTE | 2019-12-10 05:48 | PC.NURSE ---
Addendum entered by Karie May RN 12/10/19 06:35: Remained free of harm and injury while in restraints this shift. Original Note: Shift Events: Patient remains intubated. Oriented and able to answer simple questions. Minimally sedated on Precedex. No c/o pain. VSS. No acute events overnight.
--- NOTE | 2019-12-10 06:00 | XRR_ITS ---
PROCEDURE INFORMATION: Exam: XR Chest, 1 View Exam date and time: 12/10/2019 6:04 AM Age: 84 years old Clinical indication: Device placement; Ett placement (vent status); Additional info: Intubated TECHNIQUE: Imaging protocol: XR of the chest Views: 1 view. COMPARISON: CR (CHEST, ) 12/08/2019 7:12 PM FINDINGS: Tubes, catheters and devices: The endotracheal tube is above the level of the sonia. nasogastric tube extends below the diaphragm although the location of the tip not identified as it is outside of the [id number]. Lungs: Mild airspace consolidation within the lung bases left greater than right. Airspace consolidation in the right infrahilar region. Mildly improved. Pleural space: Unremarkable. No pleural effusion. No pneumothorax. Heart/Mediastinum: Unremarkable. No cardiomegaly. Bones/joints: Unremarkable. XR/XR chest 1V portable [id number] IMPRESSION: Mild airspace consolidation within the lung bases left greater than right. Airspace consolidation in the right infrahilar region. Mildly improved.
[2019-12-10 06:40] LABS: Slide Review Slide Review Perform
[2019-12-10] MEDS: potassium chloride ER 10 mEq Tablet 20 MEQ PO (08:05)
[2019-12-10] MEDS: isosorbide mononitrate 20 mg Tablet 15 MG PO (08:05)
[2019-12-10] MEDS: aspirin 325 mg Tablet PO (08:05)
[2019-12-10] MEDS: atorvastatin 40 mg Tablet 20 MG PO (08:06)
[2019-12-10] MEDS: levothyroxine 150 mcg Tablet PO (08:07)
[2019-12-10] MEDS: pantoprazole 40 mg SDV IVP (08:07)
--- NOTE | 2019-12-10 08:37 | PC.CHAP ---
Pastoral Care Encounter/Spiritual Assessment Type of Contact [] Declined cardiovascular lab director visit [] Patient/Family/Request visit [] Outpatient visit [] Follow-up visit [] Physician referral [] Code/Alert [] Routine visit [] Staff referral [] Actively dying [] Patient sleeping [] Family support [] [] Out of room [] Palliative care [] [] Receiving care in room [] Pre-surgical visit [] Trauma [] Long length of stay [] ICU visit [x] Other: ventilator Relational/Emotional Strength [] Patient feels connected with others/family/visitors/staff [] Distress [] Loneliness/isolation [] Abandonment Spirituality of Patient [] Person of Lia [] Attends Amish of their Lia [] Believes in Prayer [] Reads Bible or Church materials [] There are Spiritual issues to be addressed Juvenile Probation Officer 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 [x] Prayer [] Active listening [] Non-anxious presence [] Spiritual/emotional support [] Crisis/trauma care [] Spiritual counseling [] Bereavement support [] Provided bereavement packet [] Provided Bible/devotional materials [] Provided toy/stuffed animal, coloring book to patient or family member [] Provided Communion [] Anointing/[place] [] Salvation [x] Completed spiritual assessment [] Other: Impact on Illness or Injury [] Angry [] Fearful [] Anxious [] Often cries [] Exhaustion [] Unable to work [] Unable to attend samaritan [] Unable to walk/stand [] Unable to read [] Unable to drive [] Unable to eat/drink [] Unable to sleep [] Unable to be with family [] Patient intubated [] Other: Summary Time spent with patient
[2019-12-10] MEDS: FUROsemide 10 mg/mL SDV 4mL 40 MG IVP (09:04)
[2019-12-10] MEDS: levothyroxine 100 mcg Tablet 200 MCG PO (09:04)
--- NOTE | 2019-12-10 09:08 | P.PN_ITS ---
Subjective Subjective: Interval history: No acute events overnight. Patient has remained hemodynamically stable and afebrile. Patient on examination lying comfortably in bed get awakens to verbal stimulus. She is on Precedex 0.4 which is decreased to 0.2 because of occasional bradycardia. She is on minimal ventilator support and was changed to pressure support for most of the day today. Bedside echocardiogram was done which showed IVC to be dilated. ABG shows PCO2 of 29.4, pH of 7.4, PO2 of 72 on rate of 12, FiO2 35% with tidal volume of 500 PEEP of 8 Vitals/I&O/Wt Last Vital Signs Temp 98.6 F 12/10/19 04:00 Pulse 57 L 12/10/19 08:00 Resp 19 H 12/10/19 09:03 BP 122/58 12/10/19 08:00 Pulse Ox 98 12/10/19 08:00 12/09/19 12/10/19 12/10/19 22:59 06:59 14:59 Intake Total 727.358 / 1343.893 332.62 / 1676.513 16.858 / 16.858 Output Total 175 / 325 400 / 725 100 / 100 Balance 552.358 / 1018.893 -67.38 / 951.513 -83.142 / -83.142 Weight last 48 hrs Weight 79.742 kg Weight 77.655 kg Physical Exam Narrative: EXAM NARRATIVE: General: Sedated on ventilator, awakens to verbal stimulus, following simple commands HEENT: PERRLA, pupils bilaterally equal and reactive Chest: Bronchial breath sounds with coarse crepitations present in right middle zone, equal good air entry bilaterally CVS: S1-S2 regular, no murmurs, no tachycardia, no gallops, no rubs Abdomen: Soft, nontender, no organomegaly, bowel sounds present Neuro: No focal deficits, no facial deformity, AO x3, power 5/5 in all limbs Urinary Catheter Management^: Johnson: Cath Placed During This Visit: yes Reason for Continuing Indwelling Catheter: Accurate Measurement of Urinary Output in Critically Ill Patients Urinary Catheter Date of Insertion: 12/08/19 Urinary Catheter Time of Insertion: 10:00 Data : 12/10/19 03:00 12/10/19 03:00 Micro: Microbiology 12/08/19 11:26 Blood Culture - Preliminary Blood NEGATIVE TO DATE 12/09/19 08:09 Legionella Urinary Antigen - Final Urine Catheterized 12/09/19 08:09 Bacterial Antigens - Final Urine Kidney 12/08/19 09:17 Blood Culture - Preliminary Blood NEGATIVE TO DATE A&P Assessment and plan (1) Acute respiratory failure with hypoxia: Status: Acute (2) Pneumonia: Currently on vancomycin, imipenem and Zosyn Status: Acute Qualifiers: Laterality: bilateral Lung location: unspecified part of lung Pneumonia type: due to unspecified organism Qualified Code(s): J18.9 - Pneumonia, unspecified organism (3) NSTEMI (non-ST elevated myocardial infarction): Status: Acute (4) Heart failure: Status: Acute Qualifiers: Heart failure chronicity: acute on chronic Heart failure type: diastolic Qualified Code(s): I50.33 - Acute on chronic diastolic (congestive) heart failure (5) Hypercalcemia: Hypercalcemia of malignancy: Corrected calcium: 12.8 Will give her calcitonin as well as pamidronate Status: Acute (6) Multiple myeloma: Status: Acute (7) Acute kidney injury: Status: Acute (8) Sepsis: Status: Acute Qualifiers: Acute respiratory failure type: with hypoxia Sepsis acute organ dysfunction status: with acute organ dysfunction Sepsis type: sepsis due to unspecified organism Severe sepsis acute organ dysfunction type: acute respiratory failure Severe sepsis shock status: without septic shock Qualified Code(s): A41.9 - Sepsis, unspecified organism; R65.20 - Severe sepsis without septic shock; J96.01 - Acute respiratory failure with hypoxia (9) Thrombocytopenia: Status: Acute (10) Hypothyroidism: Levothyroxine 150 mcg oral daily Status: Acute Additional A&P Information Sepsis with acute respiratory hypoxic failure: Sepsis ruled in because of leukocytosis, lactic acidosis, fever more than 101 on admission. Respiratory failure multifactorial because of pneumonia. Patient is in ARDS survivor from April 2019 when she was intubated for 3 to 4 days. That time she had strep pneumonia. Currently patient is on vancomycin, imipenem, azithromycin. Day 3 today. Last day of azithromycin. We will finish imipenem for around 7 days. If patient remains hemodynamically stable and afebrile can discontinue vancomycin after today. Urine Legionella, bacterial antigen, strep, MRSA negative. COVID-19 rapid antigen negative. Budesonide twice daily, DuoNebs every [address] Johnson's recommendations appreciated. Patient does not have much of pleural effusion to tap. Patient CT scan results appreciated. CT scan does show bilateral consolidation which could be reactive adenopathy but cannot rule out consolidations. If patient does not improve patient might require bronchoscopy. Continue with Precedex for now. Patient is well sedated and calm. Continue fentanyl 25 mcg every hour as needed for pain Hypercalcemia/multiple myeloma: Patient got pamidronate 90 mg on 12/09/2019. Case discussed with Dr. Reid. Continue dexamethasone 6 mg IV daily. Continue monitor calcium levels daily. NSTEMI: Patient does have a history of NSTEMI in April as well. Subsequent Lexiscan in September 2019 showed a small area of decreased tracer uptake in mid inferior lateral and apical lateral region. Echocardiogram done earlier in this admission showed 40 to 45% with grade 2 d iastolic dysfunction with mild LVH with regional wall motion abnormality into mid to apical inferior septum anterior septal luevano. With a decrease in EF since last echocardiogram in April. Continue with aspirin, statins. HIT panel sent. Change Lovenox to fondaparinux 7.5 mg daily. We will give patient 40 mg of IV Lasix stat. Will re-dose Lasix according to fluid status in the evening. Thrombocytopenia: Platelet count down to 90,000 from 161 yesterday. In April patient's platelet count rebounded to 35,000. HIT panel awaited. Continue to monitor platelet counts and hemoglobin daily for now. Anemia: Check iron panel: Hemoglobin 9.5. Appropriate response to monitor transfusion done on December 08. We will re-transfuse if hemoglobin falls below 8. Continue to monitor hemoglobin daily. Check stool for occult blood. Hypertension: Goal blood pressure less than 140/90 mmHg keeping mean over 60 mmHg. Continue with home dose of metoprolol 12.5 mg twice daily. We will decrease the dose of Imdur to 50 mg daily. We will continue to monitor blood pressures. APOLONIA: Multifactorial. Secondary to sepsis, NSTEMI along with multiple contrast studies on admission. We will continue to monitor. For now creatinine has remained stable. Given the IVC on the ultrasound and chest x-ray today will diurese with Lasix. Continue to monitor urine output. We will repeat chest x-ray tomorrow morning. Hypothyroidism/elevated free TSH: Free T3 levels low, T4 levels normal. Given ongoing NSTEMI will increase the dose of levothyroxine to 200 mcg daily. Code Status : Full code DVT PPX: Lovenox If patient continues to do well can plan to extubate tomorrow. Goals of care: Had extensive discussion with patient's daughter and patient at bedside. Discussed that at baseline patient is severely ill because of multiple myeloma for which she has failed multiple chemotherapy lines in the past along with patient being in ARDS survivor in April along with patient having recurrent NSTEMI and possible heparin-induced number cytopenia at present. Risk to discuss that at this makes it difficult to treat the patient as patient is requiring Lovenox will have to monitor hemoglobin and platelet count very c losely. Also discussed that patient is having an extensive pneumonia on the right side which could be reactionary but cannot rule out bacterial pneumonia. Also discussed that patient might require bronchoscopy going forward. Also discussed the CODE STATUS. Family will discuss among themselves and let me know regarding further CODE STATUS. For now patient is full code. Attestations Medical Necessity Statement*: Continued hospitalization for respiratory failure and sepsis because of pneumonia, hypercalcemia, multiple myeloma, thrombocytopenia, NSTEMI, possible heparin-induced thrombocytopenia, APOLONIA Critical Care Time: Critical Care Time (min): 80 Coding Level of Care Code Acute Batter Depositor for [facility] Fwd Diagnoses Acute respiratory failure with hypoxia J96.01 Pneumonia J18.9 Laterality: bilateral Lung location: unspecified part of lung Pneumonia type: due to unspecified organism NSTEMI (non-ST elevated myocardial infarction) I21.4 Heart failure I50.33 Heart failure chronicity: acute on chronic Heart failure type: diastolic Hypercalcemia E83.52 Multiple myeloma C90.00 Acute kidney injury N17.9 Sepsis A41.9; R65.20; J96.01 Acute respiratory failure type: with hypoxia Sepsis acute organ dysfunction status: with acute organ dysfunction Sepsis type: sepsis due to unspecified organism Severe sepsis acute organ dysfunction type: acute respiratory failure Severe sepsis shock status: without septic shock Thrombocytopenia D69.6 Hypothyroidism E03.9
[2019-12-10 09:38] LABS: Glucose Point of Care 161 mg/dL (70-110)
[2019-12-10 09:38] LABS: Glucose Point of Care 153 mg/dL (70-110)
[2019-12-10] MEDS: budesonide 0.5 mg/2 mL Neb INHALATION ×2 (09:59→20:23)
[2019-12-10] MEDS: azithromycin 500 MG in sodium chloride 0.9% 250 ML 250 MG IV (14:59)
[2019-12-10] MEDS: FUROsemide 10 mg/mL SDV 10mL 60 MG IVP (16:41)
--- NOTE | 2019-12-10 17:58 | PM.PN ---
Subjective Subjective: Interval history: Patient says is awake but intubated. Responding appropriately to questions. Her vital signs are remained stable. Telemetry shows sinus rhythm/bradycardia. Denies any chest pain. She is on FiO2 of 35%. No fever, chills or cough. No other specific complaints. Medications: Reviewed: Yes Medication Review Details: Current Medications Acetaminophen (Tylenol) 650 mg PO Q6H PRN PRN Reason: Mild/Mod Pain Or Temp >/= 101 Last Admin: 12/10/19 01:21 Dose: 650 mg Documented by: Hydrocodone Bitart/Acetaminophen ([place] 5-325 Mg) 1 tab PO Q4H PRN PRN Reason: MODERATE TO SEVERE PAIN Albuterol Sulfate (Albuterol) 2.5 mg INHALATION Q4H.RESPIRATORY PRN PRN Reason: SHORTNESS OF BREATH Albuterol/Ipratropium (Duoneb) 3 ml INHALATION Q4H PRN PRN Reason: SHORTNESS OF BREATH Last Admin: 12/08/19 17:00 Dose: 3 ml Documented by: Albuterol/Ipratropium (Duoneb) 3 ml INHALATION Q6H.RESPIRATORY SAÚL Last Admin: 12/10/19 16:39 Dose: 3 ml Documented by: Aspirin (Aspirin) 325 mg PO DAILY SAÚL Last Admin: 12/10/19 08:05 Dose: 325 mg Documented by: Atorvastatin Calcium (Lipitor) 20 mg PO DAILY SAÚL Last Admin: 12/10/19 08:06 Dose: 20 mg Documented by: Bisacodyl (Dulcolax) 10 mg PO DAILY PRN PRN Reason: CONSTIPATION Budesonide (Pulmicort) 0.5 mg INHALATION BID.RESPIRATORY SAÚL Last Admin: 12/10/19 09:59 Dose: 0.5 mg Documented by: Dexamethasone (Decadron) 6 mg IVP Q24H SAÚL Last Admin: 12/09/19 20:58 Dose: 6 mg Documented by: Dextrose (D50w) 25 ml IVP ONCE PRN; Protocol PRN Reason: hypoglycemia protocol Dextrose (D50w) 50 ml IVP PRN PRN; Protocol PRN Reason: hypoglycemia protocol Fentanyl (Sublimaze) 25 mcg IVP Q1H PRN PRN Reason: SEVERE PAIN Last Admin: 12/10/19 14:59 Dose: 25 mcg Documented by: Fondaparinux (Arixtra) 7.5 mg SUBCUT Q24H SAÚL Last Admin: 12/10/19 10:48 Dose: 7.5 mg Documented by: Glucagon (Glucagen) 1 mg IM ONCE PRN; Protocol PRN Reason: Adult Acute Hypoglycemia Prot. Azithromycin 500 mg/ Sodium (Chloride) 250 mls @ 250 mls/hr IV Q24H SAÚL; Protocol Last Admin: 12/10/19 14:59 Dose: 250 mls/hr Documented by: Dextrose (D5w) 500 mls @ 100 mls/hr IV ONCE PRN; Protocol PRN Reason: Adult Acute Hypoglycemia Prot Imipenem/Cilastatin Sodium 250 (mg/ Sodium Chloride) 100 mls @ 200 mls/hr IV Q8H SAÚL; Protocol Last Admin: 12/10/19 14:59 Dose: 200 mls/hr Documented by: Dexmedetomidine HCl 400 mcg/ (Sodium Chloride) 104 mls @ 0 mls/hr IV .Q0M SAÚL; Protocol Last Titration: 12/10/19 11:42 Dose: 0.4 mcg/kg/hr, 8.5 mls/hr Documented by: Vancomycin HCl 1,000 mg/ (Sodium Chloride) 250 mls @ 250 mls/hr IV Q24H SAÚL Last Admin: 12/09/19 20:57 Dose: 250 mls/hr Documented by: Insulin Aspart (Novolog) 0 unit SUBCUT Q6H SAÚL; Protocol Last Admin: 12/10/19 16:51 Dose: 2 unit Documented by: Isosorbide Mononitrate (Ismo) 15 mg PO DAILY [facility] Last Admin: 12/10/19 08:05 Dose: 15 mg Documented by: Levothyroxine Sodium (Synthroid) 200 mcg PO DAILY SAÚL Last Admin: 12/10/19 09:04 Dose: 200 mcg Documented by: Metoprolol Tartrate (Lopressor) 12.5 mg PO Q12H SAÚL Last Admin: 12/10/19 06:21 Dose: Not Given Documented by: Naloxone HCl (Narcan) 0.1 mg IVP Q2M PRN PRN Reason: OPIATERV Ondansetron HCl (Zofran) 4 mg IVP Q8H PRN PRN Reason: vomiting, or N/V if npo Pantoprazole Sodium (Protonix) 40 mg IVP DAILY [facility] Last Admin: 12/10/19 08:07 Dose: 40 mg Documented by: Potassium Chloride (Klor-Con 10) 20 meq PO DAILY SAÚL Last Admin: 12/10/19 08:05 Dose: 20 meq Documented by: Vitals/I&O/Wt Last Vital Signs Temp 98.9 F 12/10/19 14:00 Pulse 63 12/10/19 16:22 Resp 17 12/10/19 17:10 BP 108/56 12/10/19 16:00 Pulse Ox 100 12/10/19 16:22 12/10/19 12/10/19 12/10/19 06:59 14:59 22:59 Intake Total 332.62 / 1676.513 28.618 / 28.618 Output Total 400 / 725 100 / 100 Balance -67.38 / 951.513 -71.382 / -71.382 Weight last 48 hrs Weight 175 lb 12.8 oz Weight 171 lb 3.2 oz Physical Exam Narrative: EXAM NARRATIVE: GENERAL: The patient is intubated HEENT: Minimal pallor. No icterus or lymphadenopathy.Oral cavity: There are no mucous membrane lesions. NECK: Trachea appears to be central. No masses noted. No JVD or thyromegaly appreciated. RESPIRATORY: Chest is symmetrical. No intercostals muscle retraction or any accessory muscle activation. There is no chest wall tenderness. Breath sounds are heard bilaterally. No rales or rhonchi heard. No evidence of any consolidation. BREASTS: Deferred. HEART: The heart sounds are normal. No S3 or S4. Short murmur in the left sternal border. No diastolic murmurs. No pericardial rub ABDOMEN: No vessel pulsations or distention. No tenderness. No organomegaly appreciated. Bowel sounds are normally heard. : Deferred. RECTAL: Deferred. LYMPHATIC: No lymphadenopathy noted in the neck . EXTREMITIES: No edema or cyanosis. No clubbing. Peripheral pulses are palpated in fairly good volume and amplitude MUSCULOSKELETAL: No acute joint deformities or swelling SKIN: There are no significant rashes or ecchymosis NEUROPSYCHIATRIC: The patient is intubated and sedated. Seems to be moving all extremities. Urinary Catheter Management^: Johnson: Cath Placed During This Visit: yes Reason for Continuing Indwelling Catheter: Accurate Measurement of Urinary Output in Critically Ill Patients Urinary Catheter Date of Insertion: 12/08/19 Urinary Catheter Time of Insertion: 10:00 Data : 12/11/19 03:00 12/11/19 03:00 Micro: Microbiology 12/09/19 11:15 Group A Streptococcus Rapid Screen - Preliminary Throat 12/09/19 08:09 Urine Culture - Preliminary Urine,Voided 12/09/19 11:15 MRSA Culture - Final Nose A&P Assessment and plan (1) Acute diastolic heart failure: Clinically she seems to be compensated. She does not appear to be fluid overloaded. May continue careful IV diuresis. Status: Acute (2) Acute respiratory failure with hypoxia: Patient is currently intubated and sedated. The oxygenation is appropriate. In the process of being extubated. Status: Acute (3) NSTEMI (non-ST elevated myocardial infarction): In view of the patient's recurrent non-ST elevation myocardial infarction and the abnormal myocardial perfusion imaging, she may require a cardiac catheterization, sometime down the line, unless she develops chest pain or any hemodynamic compromise while being intubated. May continue on the current medications for the time being. Her platelet count has dropped. The Lovenox was discontinued yesterday. Patient is currently on fondaparinux Status: Acute (4) Multiple myeloma: In view of her elevated creatinine, coronary angiogram could worsen the kidney function. This will be a concern. Need to discuss more about this when we consider the coronary angiogram. Status: Acute Qualifiers: Multiple myeloma remission status: not in remission Qualified Code(s): C90.00 - Multiple myeloma not having achieved remission (5) Abnormal cardiovascular stress test: Patient has a small area of ischemia based on the perfusion scan. However because of the recurrent non-ST relation myocardial infarction, complicated with a diastolic heart failure, need to consider further cardiac work-up. Status: Acute Additional A&P Information The other problems are #1 anemia, stable #2 thrombocytopenia, stable #3 chronic renal insufficiency, no significant change #4 history of essential hypertension, currently normotensive #5 type 2 diabetes, blood sugar fairly under control #6 dyslipidemia #7 hypothyroidism, clinically euthyroid Once the patient is extubated, we will discuss about the coronary angiogram. The renal insufficiency is a concern. We also need to make sure that the hemoglobin and the platelet counts, remained stable. Based on the clinical progress, further recommendations will be made. Attestations Medical Necessity Statement*: Patient requires continued hospital stay for close monitoring and further management Coding Level of Care Code Acute [employer] Coordinator [employer] Fwd Diagnoses Acute diastolic heart failure I50.31 Acute respiratory failure with hypoxia J96.01 NSTEMI (non-ST elevated myocardial infarction) I21.4 Multiple myeloma C90.00 Multiple myeloma remission status: not in remission Abnormal cardiovascular stress test R94.39
[2019-12-10 19:32] LABS: Vancomycin Trough 13.1 ug/mL (10-15)
[2019-12-10] MEDS: dexmedetomidine 400 MCG in sodium chloride 0.9% (100 ml) 100 ML 8.5 MCG IV (20:00)
[2019-12-10] MEDS: dexamethasone 4 mg/mL INJ 6 MG IVP (21:30)
[2019-12-10 21:40] LABS: Glucose Point of Care 176 mg/dL (70-110)
[2019-12-10] MEDS: vancomycin 1,000 MG in sodium chloride 0.9% 250 ML 250 MG IV (21:53)
[2019-12-10 22:41] LABS: Glucose Point of Care 150 mg/dL (70-110)
[2019-12-11] VITALS (27 sets, daily range): BP systolic 108–148; BP diastolic 37–72; PULSE 61–89; RESP 12–25; TEMP 36.7; O2SAT 93–99
[2019-12-11] MEDS: ipratropium-albuterol 3 mL Neb INHALATION ×4 (03:23→20:43)
[2019-12-11] MEDS: fentaNYL 50 mcg/mL INJ 2mL 25 MCG IVP (03:26)
[2019-12-11 03:34] LABS: Glucose Point of Care 163 mg/dL (70-110)
[2019-12-11 03:42] LABS: Basophils % 0.3 %; Hematocrit 31.2 % (37.0-47.0); Hemoglobin 9.6 g/dL (11.5-15.3); Lymphocytes # 0.7 10^3/uL (0.8-4.8); Lymphocytes % 9.9 %; Mean Corpuscular HGB Conc 30.8 g/dL (30.0-36.0); Mean Corpuscular Hemoglobin 31.2 pg (28.0-34.0); Mean Corpuscular Volume 101.3 fL (81-99); Mean Platelet Volume 11.6 fL (7.4-10.4); Monocytes # 0.4 10^3/uL (0.2-0.9); Monocytes % 5.7 %; Neutrophils # 6.26 10^3/uL (1.8-7.7); Neutrophils % 83.3 %; Nucleated Red Blood Cells % 0.4 %; Platelet Count 101 10^3/cmm (130-400); Red Blood Count 3.08 10^6/uL (4.1-5.3); White Blood Count 7.5 10^3/uL (4.0-10.0)
[2019-12-11 04:07] LABS: Alanine Aminotransferase 53 U/L (0-33); Albumin Level 2.1 g/dL (3.5-5.2); Alkaline Phosphatase 53 IU/L (35-105); Anion Gap 12.1 (5-19); Aspartate Amino Transferase 86 U/L (0-32); Blood Urea Nitrogen 46 mg/dL (8-23); Calcium 11.1 mg/dL (8.5-10.5); Carbon Dioxide 21 mmol/L (22-29); Chloride 110 mmol/L (98-107); Globulin 7.6 g/dL (1.3-4.6); Glucose 181 mg/dL (65-115); Magnesium 2.1 mg/dL (1.7-2.3); Osmolality Calculated 304 mOsm/kg (285-295); Potassium 4.1 mmol/L (3.5-5.1); Sodium 139 mmol/L (136-145); Total Bilirubin 0.8 mg/dL (0.15-1.2); Total Protein 9.7 g/dL (6.6-8.7)
[2019-12-11 05:05] LABS: ABG PCO2 34.5 mmHg (35-45); ABG PH Result 7.42 (7.35-7.45); Base Excess ABG -1.9 mmol/L (-2.0-2.0); Blood Gas Allen Test Pos; Blood Gas Sample Site Radial, right; Blood Gas Sample Type Arterial; HCO3 ABG 22.2 mmol/L (22-26); HGB O2 Sat 94.7 % (95-100); Ionized Calcium Level - ABG 1.3 mmol/L (1.1-1.4); Methemoglobin 0.8 % (0.4-1.5); Oxygen Device VENT; Oxygen Saturation ABG 96.4; PO2 ABG 78.1 mmHg (80.0-100.0); Potassium Level - ABG 3.9 mmol/L (3.5-5.0); Total Hemoglobin 10.1 g/dL (12-16)
[2019-12-11 05:07] LABS: Alveolar-Arterial Oxygen Gradi 16.6 mmHg (5-10)
--- NOTE | 2019-12-11 06:00 | XRR_ITS ---
PROCEDURE INFORMATION: Exam: XR Chest, 1 View Exam date and time: 12/11/2019 5:13 AM Age: 84 years old Clinical indication: Condition or disease and device placement; Ett placement (vent status); Lung condition and disease; Other: Covid TECHNIQUE: Imaging protocol: XR of the chest Views: 1 view. COMPARISON: CR XR chest 1V portable [id number] 12/10/2019 5:53 AM FINDINGS: Tubes, catheters and devices: Endotracheal and feeding tubes. The endotracheal tube terminates 4.2 cm above the sonia. Lungs: COPD and interstitial prominence. Interval worsening in asymmetric airspace disease, right greater than left, in the setting of reported COVID pneumonitis. Pleural space: Bilateral pleural effusions . Heart/Mediastinum: Borderline cardiomegaly. Vasculature: calcification of the thoracic aorta. Bones/joints: osteopenia and degenerative change. XR/XR chest 1V portable [id number] IMPRESSION: 1. Interval worsening in asymmetric airspace disease, right greater than left, in the setting of reported COVID pneumonitis. 2. Bilateral pleural effusions . 3. Endotracheal and feeding tubes. The endotracheal tube terminates 4.2 cm above the sonia.
--- NOTE | 2019-12-11 06:35 | PC.NURSE ---
Shift Events: Patient remains intubated and off sedation all shift. Patient is calm and cooperative. Hopeful to get extubated today. Vital signs have remained WDL. Communicating well with staff. Rested quietly in bed all shift.
[2019-12-11 06:37] LABS: Slide Review Slide Review Perform
[2019-12-11] MEDS: FUROsemide 10 mg/mL SDV 10mL 60 MG IVP ×2 (07:39→21:26)
[2019-12-11] MEDS: budesonide 0.5 mg/2 mL Neb INHALATION ×2 (08:05→20:43)
[2019-12-11] MEDS: pantoprazole 40 mg SDV IVP (08:36)
[2019-12-11] MEDS: aspirin 325 mg Tablet PO (08:36)
[2019-12-11] MEDS: atorvastatin 40 mg Tablet 20 MG PO (08:36)
[2019-12-11] MEDS: potassium chloride ER 10 mEq Tablet 20 MEQ PO (08:36)
[2019-12-11] MEDS: levothyroxine 100 mcg Tablet 200 MCG PO (08:37)
[2019-12-11] MEDS: isosorbide mononitrate 20 mg Tablet 15 MG PO (08:37)
--- NOTE | 2019-12-11 09:20 | P.PN_ITS ---
Subjective Subjective: Interval history: No acute events overnight. Patient is comfortable on vent at Precedex 0.2. She is on minimal vent setting and saturating well. Labs and vitals noted. Patient has remained afebrile and hemodynamically stable. ABG done today morning shows a pH of 7.4, PO2 of 78, PCO2 of 34 on FiO2 35% tidal volume of 500, PEEP of 5. Vitals/I&O/Wt Last Vital Signs Temp 98.1 F 12/11/19 08:57 Pulse 77 12/11/19 08:57 Resp 12 12/11/19 08:57 BP 131/60 12/11/19 08:57 Pulse Ox 99 12/11/19 08:57 12/10/19 12/11/19 12/11/19 22:59 06:59 14:59 Intake Total 396.762 / 425.380 100 / 525.380 Output Total 1775 / 1875 1100 / 2975 Balance -1378.238 / -1449.620 -1000 / -2449.620 Weight last 48 hrs Weight 78.018 kg Weight 79.742 kg Physical Exam Narrative: EXAM NARRATIVE: General: Sedated on ventilator, awakens to verbal stimulus, following simple commands HEENT: PERRLA, pupils bilaterally equal and reactive Chest: Bronchial breath sounds with coarse crepitations present in right middle zone, equal good air entry bilaterally CVS: S1-S2 regular, no murmurs, no tachycardia, no gallops, no rubs Abdomen: Soft, nontender, no organomegaly, bowel sounds present Neuro: No focal deficits, no facial deformity, AO x3, power 5/5 in all limbs Urinary Catheter Management^: Johnson: Cath Placed During This Visit: yes Reason for Continuing Indwelling Catheter: Accurate Measurement of Urinary Output in Critically Ill Patients Urinary Catheter Date of Insertion: 12/08/19 Urinary Catheter Time of Insertion: 10:00 Data : 12/11/19 03:00 12/11/19 03:00 Micro: Microbiology 12/09/19 08:09 Urine Culture - Final Urine,Voided 12/08/19 16:30 Gram Stain - Final Sputum - Endotracheal Tube Aspirate Sputum Culture - Preliminary 12/09/19 11:15 Group A Streptococcus Rapid Screen - Preliminary Throat 12/09/19 11:15 MRSA Culture - Final Nose A&P Assessment and plan (1) Acute respiratory failure with hypoxia: Status: Acute (2) Pneumonia: Status: Acute Qualifiers: Laterality: bilateral Lung location: unspecified part of lung Pneumonia type: due to unspecified organism Qualified Code(s): J18.9 - Pneumonia, unspecified organism (3) NSTEMI (non-ST elevated myocardial infarction): Status: Acute (4) Heart failure: Status: Acute Qualifiers: Heart failure chronicity: acute on chronic Heart failure type: diastolic Qualified Code(s): I50.33 - Acute on chronic diastolic (congestive) heart failure (5) Hypercalcemia: Hypercalcemia of malignancy: Corrected calcium: 12.8 Will give her calcitonin as well as pamidronate Status: Acute (6) Multiple myeloma: Status: Acute (7) Acute kidney injury: Status: Acute (8) Sepsis: Status: Acute Qualifiers: Acute respiratory failure type: with hypoxia Sepsis acute organ dysfunction status: with acute organ dysfunction Sepsis type: sepsis due to unspecified organism Severe sepsis acute organ dysfunction type: acute respiratory failure Severe sepsis shock status: without septic shock Qualified Code(s): A41.9 - Sepsis, unspecified organism; R65.20 - Severe sepsis without septic shock; J96.01 - Acute respiratory failure with hypoxia (9) Thrombocytopenia: Status: Acute (10) Hypothyroidism: Levothyroxine 150 mcg oral daily Status: Acute Additional A&P Information Sepsis with acute respiratory hypoxic failure: Sepsis ruled in because of leukocytosis, lactic acidosis, fever more than 101 on admission. Respiratory failure multifactorial because of pneumonia. Patient is in ARDS survivor from April 2019 when she was intubated for 3 to 4 days. That time she had strep pneumonia. Patient has finished 3-day course of azithromycin. MRSA is negative. We will stop vancomycin and azithromycin for now. Continue with imipenem. Patient creatinine better now. Will dose imipenem accordingly. Urine Legionella, bacterial antigen, strep, MRSA negative. COVID-19 rapid antigen negative. Budesonide twice daily, DuoNebs every [address] Johnson's recommendations appreciated. Patient does not have much of pleural effusion to tap. Patient CT scan results appreciated. CT scan does show bilateral consolidation which could be reactive adenopathy but cannot rule out consolidations. If pa tient does not improve patient might require bronchoscopy. Continue with Precedex for now. Patient is well sedated and calm. Continue fentanyl 25 mcg every hour as needed for pain Hypercalcemia/multiple myeloma: Patient got pamidronate 90 mg on 12/09/2019. Case discussed with Dr. Reid. Continue dexamethasone 6 mg IV daily. Continue monitor calcium levels daily. NSTEMI: Patient does have a history of NSTEMI in April as well. Subsequent Lexiscan in September 2019 showed a small area of decreased tracer uptake in mid inferior lateral and apical lateral region. Echocardiogram done earlier in this admission showed 40 to 45% with grade 2 diastolic dysfunction with mild LVH with regional wall motion abnormality into mid to apical inferior septum anterior septal luevano. With a decrease in EF s clint last echocardiogram in April. Continue with aspirin, statins. HIT panel sent. Change Lovenox to fondaparinux 7.5 mg daily. Patient overall 4.5 L negative since morning. And overall 2.6 L negative since admission. For now continue with IV Lasix 60 mg twice daily. Thrombocytopenia: Improving. In April patient's platelet count rebounded to 35,000. HIT panel awaited. Continue to monitor platelet counts and hemoglobin daily for now. Anemia: Stable. Post 1 unit transfusion. Start on iron supplementation orally. Continue to monitor hemoglobin daily. Check stool for occult blood. Hypertension: Goal blood pressure less than 140/90 mmHg keeping mean over 60 mmHg. Continue with home dose of metoprolol 12.5 mg twice daily, Imdur 15 mg daily. We will continue to monitor blood pressures. APOLONIA: Resolving. Multifactorial. Secondary to sepsis, NSTEMI along with multiple contrast studies on admission. Continue to monitor urine output. We will repeat chest x-ray tomorrow morning. Hypothyroidism/elevated free TSH: Free T3 levels low, T4 levels normal. Given ongoing NSTEMI will increase the dose of levothyroxine to 200 mcg daily. Code Status : Full code DVT PPX: Lovenox Patient is improving. Diuresing well. Will discuss with Dr. Parker for a possible cardiac catheterization in next 24 hours. If the plan will be for cardiac catheterization next 24 hours can plan to extubate post procedure otherwise we will plan to extubate later in the day today. Goals of care: Had extensive discussion with patient's daughter and patient at bedside. Discussed that at baseline patient is severely ill because of multiple myeloma for which she has failed multiple chemotherapy lines in the past along with patient being in ARDS survivor in April along with patient having recurrent NSTEMI and possible heparin-induced number cytopenia at present. Risk to discuss that at this makes it difficult to treat the patient as patient is requiring Lovenox will have to monitor hemoglobin and platelet count very closely. Also discussed that patient is having an extensive pneumonia on the right side which could be reactionary but cannot rule out bacterial pneumonia. Also discussed that patient might require bronchoscopy going forward. Also discussed the CODE STATUS. Daughter who is also the DPOAE states for now they would want patient to be full code and if needed reintubation. Attestations Medical Necessity Statement*: Patient needs further hospitalization for evaluation and management of hypoxic respiratory failure because of pneumonia, non-ST elevation MA, thrombocytopenia, resolving APOLONIA Critical Care Time: Critical Care Time (min): 60 Coding Level of Care Code Acute Customer Data Technician for [facility] Fwd Diagnoses Acute respiratory failure with hypoxia J96.01 Pneumonia J18.9 Laterality: bilateral Lung location: unspecified part of lung Pneumonia type: due to unspecified organism NSTEMI (non-ST elevated myocardial infarction) I21.4 Heart failure I50.33 Heart failure chronicity: acute on chronic Heart failure type: diastolic Hypercalcemia E83.52 Multiple myeloma C90.00 Acute kidney injury N17.9 Sepsis A41.9; R65.20; J96.01 Acute respiratory failure type: with hypoxia Sepsis acute organ dysfunction status: with acute organ dysfunction Sepsis type: sepsis due to unspecified organism Severe sepsis acute organ dysfunction type: acute respiratory failure Severe sepsis shock status: without septic shock Thrombocytopenia D69.6 Hypothyroidism E03.9
--- NOTE | 2019-12-11 09:20 | PC.SOCIAL ---
IMM Page 2 of IMM given to patient. Initialed, dated, and timed and placed in chart. IMM also explained to patient's daughter by phone.
[2019-12-11] MEDS: dexmedetomidine 400 MCG in sodium chloride 0.9% (100 ml) 100 ML 8.5 MCG IV (10:00)
--- NOTE | 2019-12-11 14:00 | XRR_ITS ---
PROCEDURE INFORMATION: Exam: XR Chest, 1 View Exam date and time: 12/11/2019 1:58 PM Age: 84 years old Clinical indication: Condition or disease; Lung condition and disease; Pneumonia; Additional info: Chf/pna, intubated TECHNIQUE: Imaging protocol: XR of the chest Views: 1 view. COMPARISON: CR XR chest 1V portable [id number] 12/11/2019 5:00 AM FINDINGS: Tubes, catheters and devices: Endotracheal and feeding tubes. The endotracheal tube terminates 4.1 cm above the sonia. Lungs: COPD and interstitial prominence. Prominent residual right-sided airspace disease, which has minimally improved. Pleural space: Small bilateral pleural effusions and right fissural effusion. Heart/Mediastinum: Borderline cardiomegaly. Vasculature: Calcification of the thoracic aorta. Bones/joints: Osteopenia and degenerative change. XR/XR chest 1V portable [id number] IMPRESSION: 1. Prominent residual right-sided airspace disease, which has minimally improved. 2. Small bilateral pleural effusions and right fissural effusion. 3. Additional findings as described above.
--- NOTE | 2019-12-11 14:59 | PM.PN ---
Subjective Subjective: Interval history: The patient seems to be feeling better. She has no chest pain. The vital signs are stable. Remains afebrile. Medications: Reviewed: Yes Medication Review Details: Current Medications Acetaminophen (Tylenol) 650 mg PO Q6H PRN PRN Reason: Mild/Mod Pain Or Temp >/= 101 Last Admin: 12/10/19 01:21 Dose: 650 mg Documented by: Hydrocodone Bitart/Acetaminophen (Con[place] 5-325 Mg) 1 tab PO Q4H PRN PRN Reason: MODERATE TO SEVERE PAIN Albuterol Sulfate (Albuterol) 2.5 mg INHALATION Q4H.RESPIRATORY PRN PRN Reason: SHORTNESS OF BREATH Albuterol/Ipratropium (Duoneb) 3 ml INHALATION Q4H PRN PRN Reason: SHORTNESS OF BREATH Last Admin: 12/08/19 17:00 Dose: 3 ml Documented by: Albuterol/Ipratropium (Duoneb) 3 ml INHALATION Q6H.RESPIRATORY SAÚL Last Admin: 12/11/19 14:12 Dose: 3 ml Documented by: Aspirin (Aspirin) 325 mg PO DAILY SAÚL Last Admin: 12/11/19 08:36 Dose: 325 mg Documented by: Atorvastatin Calcium (Lipitor) 20 mg PO DAILY SAÚL Last Admin: 12/11/19 08:36 Dose: 20 mg Documented by: Bisacodyl (Dulcolax) 10 mg PO DAILY PRN PRN Reason: CONSTIPATION Budesonide (Pulmicort) 0.5 mg INHALATION BID.RESPIRATORY SAÚL Last Admin: 12/11/19 08:05 Dose: 0.5 mg Documented by: Dexamethasone (Decadron) 6 mg IVP Q24H SAÚL Last Admin: 12/10/19 21:30 Dose: 6 mg Documented by: Dextrose (D50w) 25 ml IVP ONCE PRN; Protocol PRN Reason: hypoglycemia protocol Dextrose (D50w) 50 ml IVP PRN PRN; Protocol PRN Reason: hypoglycemia protocol Fentanyl (Sublimaze) 25 mcg IVP Q1H PRN PRN Reason: SEVERE PAIN Last Admin: 12/11/19 03:26 Dose: 25 mcg Documented by: Fondaparinux (Arixtra) 7.5 mg SUBCUT Q24H SAÚL Last Admin: 12/11/19 11:45 Dose: 7.5 mg Documented by: Furosemide (Lasix) 60 mg IVP Q12H SAÚL Last Admin: 12/11/19 07:39 Dose: 60 mg Documented by: Glucagon (Glucagen) 1 mg IM ONCE PRN; Protocol PRN Reason: Adult Acute Hypoglycemia Prot. Dextrose (D5w) 500 mls @ 100 mls/hr IV ONCE PRN; Protocol PRN Reason: Adult Acute Hypoglycemia Prot Imipenem/Cilastatin Sodium 250 (mg/ Sodium Chloride) 100 mls @ 200 mls/hr IV Q8H SAÚL; Protocol Last Admin: 12/11/19 06:22 Dose: 200 mls/hr Documented by: Dexmedetomidine HCl 400 mcg/ (Sodium Chloride) 104 mls @ 0 mls/hr IV .Q0M SAÚL; Protocol Last Admin: 12/11/19 10:00 Dose: 0.4 mcg/kg/hr, 8.5 mls/hr Documented by: Insulin Aspart (Novolog) 0 unit SUBCUT Q6H SAÚL; Protocol Last Admin: 12/11/19 10:57 Dose: 2 unit Documented by: Isosorbide Mononitrate (Ismo) 15 mg PO DAILY [facility] Last Admin: 12/11/19 08:37 Dose: 15 mg Documented by: Levothyroxine Sodium (Synthroid) 200 mcg PO DAILY SAÚL Last Admin: 12/11/19 08:37 Dose: 200 mcg Documented by: Metoprolol Tartrate (Lopressor) 12.5 mg PO Q12H SAÚL Last Admin: 12/11/19 07:04 Dose: Not Given Documented by: Naloxone HCl (Narcan) 0.1 mg IVP Q2M PRN PRN Reason: OPIATERV Ondansetron HCl (Zofran) 4 mg IVP Q8H PRN PRN Reason: vomiting, or N/V if npo Pantoprazole Sodium (Protonix) 40 mg IVP DAILY [facility] Last Admin: 12/11/19 08:36 Dose: 40 mg Documented by: Potassium Chloride (Klor-Con 10) 20 meq PO DAILY SAÚL Last Admin: 12/11/19 08:36 Dose: 20 meq Documented by: Vitals/I&O/Wt Last Vital Signs Temp 98.1 F 12/11/19 08:57 Pulse 75 12/11/19 14:16 Resp 18 12/11/19 14:16 BP 135/55 12/11/19 14:16 Pulse Ox 93 12/11/19 14:16 12/10/19 12/11/19 12/11/19 22:59 06:59 14:59 Intake Total 396.762 / 425.380 100 / 525.380 104 / 104 Output Total 1775 / 1875 1100 / 2975 2400 / 2400 Balance -1378.238 / -1449.620 -1000 / -2449.620 -2296 / -2296 Weight last 48 hrs Weight 172 lb Weight 175 lb 12.8 oz Physical Exam Narrative: EXAM NARRATIVE: GENERAL: The patient is intubated HEENT: Minimal pallor. No icterus or lymphadenopathy.Oral cavity: There are no mucous membrane lesions. NECK: Trachea appears to be central. No masses noted. No JVD or thyromegaly appreciated. RESPIRATORY: Chest is symmetrical. No intercostals muscle retraction or any accessory muscle activation. There is no chest wall tenderness. Breath sounds are heard bilaterally. No rales or rhonchi heard. No evidence of any consolidation. BREASTS: Deferred. HEART: The heart sounds are normal. No S3 or S4. Short murmur in the left sternal border. No diastolic murmurs. No pericardial rub ABDOMEN: No vessel pulsations or distention. No tenderness. No organomegaly appreciated. Bowel sounds are normally heard. : Deferred. RECTAL: Deferred. LYMPHATIC: No lymphadenopathy noted in the neck . EXTREMITIES: No edema or cyanosis. No clubbing. Peripheral pulses are palpated in fairly good volume and amplitude MUSCULOSKELETAL: No acute joint deformities or swelling SKIN: There are no significant rashes or ecchymosis NEUROPSYCHIATRIC: The patient is intubated and sedated. Seems to be moving all extremities. Urinary Catheter Management^: Johnson: Cath Placed During This Visit: yes Reason for Continuing Indwelling Catheter: Accurate Measurement of Urinary Output in Critically Ill Patients Urinary Catheter Date of Insertion: 12/08/19 Urinary Catheter Time of Insertion: 10:00 Data : 12/12/19 03:33 12/12/19 03:33 Micro: Microbiology 12/09/19 11:15 Group A Streptococcus Rapid Screen - Final Throat 12/09/19 08:09 Urine Culture - Final Urine,Voided 12/08/19 16:30 Gram Stain - Final Sputum - Endotracheal Tube Aspirate Sputum Culture - Preliminary 12/09/19 11:15 MRSA Culture - Final Nose A&P Assessment and plan (1) NSTEMI (non-ST elevated myocardial infarction): In view of the patient's recurrent non-ST elevation myocardial infarction and the abnormal myocardial perfusion imaging, it would be appropriate to go ahead and do a cardiac catheterization, while still being intubated. The risk of bleeding, hematoma, vascular injury, myocardial infarction, CVA, renal failure and other concomitant complications were explained in detail. Patient's daughter was present during the discussion. Possibility of contrast-induced nephropathy was discussed in detail. Patient and the family is wanting to go ahead with the procedure. We may go ahead and schedule this for tomorrow morning. Status: Acute (2) Acute diastolic heart failure: Clinically she seems to be compensated. She does not appear to be fluid overloaded. There may be an element of overdiuresis. We will try to carefully hydrate her Status: Acute (3) Acute respiratory failure with hypoxia: Her respiratory status has improved Status: Acute (4) Multiple myeloma: Management as per the oncology service Status: Acute Qualifiers: Multiple myeloma remission status: not in remission Qualified Code(s): C90.00 - Multiple myeloma not having achieved remission (5) Abnormal cardiovascular stress test: Patient continues to have persistent ST-T changes in the EKG. For further evaluation, a cardiac catheterization would be appropriate. Status: Acute Additional A&P Information The other problems are #1 anemia, stable #2 thrombocytopenia, stable #3 chronic renal insufficiency, no significant change #4 history of essential hypertension, currently normotensive #5 type 2 diabetes, blood sugar fairly under control #6 dyslipidemia #7 hypothyroidism, clinically euthyroid Discussed with Dr. Munoz. It was thought to be appropriate to go ahead with a cardiac catheterization at this time while she is being intubated, considering the possibility of going into respiratory failure while doing coronary intervention. So we may go ahead and schedule the procedure for tomorrow morning. I will carefully hydrate her with normal saline. The BMP, CBC will be repeated in the morning. Attestations Medical Necessity Statement*: Patient requires continued hospital stay, for further evaluation management of her condition Coding Level of Care Code Acute Senior Business Development Analyst for [facility] Fw Diagnoses NSTEMI (non-ST elevated myocardial infarction) I21.4 Acute diastolic heart failure I50.31 Acute respiratory failure with hypoxia J96.01 Multiple myeloma C90.00 Multiple myeloma remission status: not in remission Abnormal cardiovascular stress test R94.39
[2019-12-11 17:32] LABS: Glucose Point of Care 148 mg/dL (70-110)
[2019-12-11 17:53] LABS: Glucose Point of Care 155 mg/dL (70-110)
[2019-12-11] MEDS: sodium chlor 0.9% + KCl 20 mEq 20 MEQ/1,000 ML BAG 75 MEQ IV (18:09)
[2019-12-11 18:56] LABS: Anion Gap 14.4 (5-19); Blood Urea Nitrogen 44 mg/dL (8-23); Calcium 11.3 mg/dL (8.5-10.5); Carbon Dioxide 22 mmol/L (22-29); Chloride 109 mmol/L (98-107); Creatinine Clr Calc Pharmacy 44.9422; Glucose 160 mg/dL (65-115); Osmolality Calculated 309 mOsm/kg (285-295); Potassium 3.4 mmol/L (3.5-5.1); Sodium 142 mmol/L (136-145)
[2019-12-11] MEDS: dexamethasone 4 mg/mL INJ 6 MG IVP (21:26)
[2019-12-11] MEDS: metoprolol tartrate 25 mg Tablet 12.5 MG PO (21:27)
[2019-12-12] VITALS (34 sets, daily range): BP systolic 118–158; BP diastolic 49–74; PULSE 56–86; RESP 10–23; TEMP 36.7–36.8; O2SAT 91–97
[2019-12-12] MEDS: dexmedetomidine 400 MCG in sodium chloride 0.9% (100 ml) 100 ML 8.5 MCG IV (01:10)
[2019-12-12] MEDS: ipratropium-albuterol 3 mL Neb INHALATION ×3 (02:47→20:32)
[2019-12-12 03:50] LABS: Basophils % 0.2 %; Hematocrit 31.5 % (37.0-47.0); Hemoglobin 9.8 g/dL (11.5-15.3); Lymphocytes % 11.3 %; Mean Corpuscular HGB Conc 31.1 g/dL (30.0-36.0); Mean Corpuscular Volume 99.7 fL (81-99); Mean Platelet Volume 11.4 fL (7.4-10.4); Monocytes # 0.6 10^3/uL (0.2-0.9); Monocytes % 6.3 %; Neutrophils # 6.92 10^3/uL (1.8-7.7); Neutrophils % 78.6 %; Nucleated Red Blood Cells % 0.5 %; Platelet Count 89 10^3/cmm (130-400); Red Blood Count 3.16 10^6/uL (4.1-5.3); White Blood Count 8.8 10^3/uL (4.0-10.0)
[2019-12-12 04:25] LABS: Slide Review Slide Review Perform
[2019-12-12 04:27] LABS: ABG PCO2 35.9 mmHg (35-45); ABG PH Result 7.48 (7.35-7.45); Alveolar-Arterial Oxygen Gradi 13.9 mmHg (5-10); Arterial Blood Gas Hematocrit 37.2 % (37-47); Blood Gas Allen Test Pos; Blood Gas Operator Identificat HARKR; Blood Gas Sample Site Radial, left; Blood Gas Sample Type Arterial; Carboxyhemoglobin 0.5 %THgb (0.4-20.1); HCO3 ABG 26.5 mmol/L (22-26); Ionized Calcium Level - ABG 1.1 mmol/L (1.1-1.4); Methemoglobin 0.3 % (0.4-1.5); Oxygen Device VENT; Oxygen Saturation ABG 97.8; PO2 ABG 95.4 mmHg (80.0-100.0); Potassium Level - ABG 3.5 mmol/L (3.5-5.0); Total Hemoglobin 12.1 g/dL (12-16)
[2019-12-12] MEDS: diphenhydrAMINE 50 mg Capsule PO (04:52)
[2019-12-12] MEDS: sodium chloride 0.9% 1,000 ML 50 ML IV (04:52)
[2019-12-12 06:19] LABS: Alanine Aminotransferase 50 U/L (0-33); Albumin Level 2.2 g/dL (3.5-5.2); Alkaline Phosphatase 57 IU/L (35-105); Anion Gap 14.6 (5-19); Aspartate Amino Transferase 81 U/L (0-32); Blood Urea Nitrogen 41 mg/dL (8-23); Calcium 11.9 mg/dL (8.5-10.5); Carbon Dioxide 23 mmol/L (22-29); Chloride 106 mmol/L (98-107); Globulin 7.8 g/dL (1.3-4.6); Glucose 197 mg/dL (65-115); Osmolality Calculated 306 mOsm/kg (285-295); Potassium 3.6 mmol/L (3.5-5.1); Sodium 140 mmol/L (136-145)
[2019-12-12 06:23] LABS: Creatinine Clr Calc Pharmacy 44.9422
[2019-12-12 06:34] LABS: INR 1.43 (0.8-1.2)
--- NOTE | 2019-12-12 06:34 | XACV_ITS ---
Exam Room: [facility] Ht: 168 cm Wt: 78 kg BSA: 1.92 m2 Gender: Female : 1935 Any Known Allergies: Other Exam Priority: Routine Procedure(s): Procedure Description: Diagnostic procedure Procedure Description: PCI procedure Procedure Description: Left ventriculography Procedure Description: Drug Eluting Coronary Stent Procedure Description: PTCA Procedure Description: Coronary Angiography Diagnostic Cath Status: Urgent Diagnostic Findings * Coronary angiography shows right dominance. * The left main is a medium caliber vessel with no significant distorted lesions. * The left anterior descending artery is a medium caliber vessel which appears to wrap around the LV apex. Paroxysmal atrial tachycardia proximal to the mid LAD was found to have 70 to 90% diffuse disease. The second and third diagonal branch Relatively small caliber vessel with a high-grade ostial narrowing of around 80 to 90%. * The circumflex artery is a medium caliber vessel with a mild diffuse disease. No significant stenotic lesions were noted. * The right coronary artery is dominant medium caliber vessel with minimal eccentric plaque at the mid segment. No significant stenotic lesions. Mild diffuse disease was noted in the mid to distal PDA branch. PCI Status: Urgent PCI Indication: NSTE - ACS Interventional Findings * Used XB 3.5 guide catheter to engage the left main artery. A 0.014 run-through guidewire was used to cross the lesion and was placed in the distal LAD. Initially predilated the lesion using 1.5 x 8 mm semi-compliant balloon. This was followed by predilation using 2.5 x 12 mm semi-compliant balloon. At this time we placed a 2.75 x 26 mm resolute [place] drug-eluting stent.We postdilated the proximal part of the stent using 3.0 x 6 mm NC balloon. At this time guidewire was removed and final angiogram was performed that showed excellent stent expansion, KRISTOPHER-3 flow and no residual stenosis. Patient left the [facility] in stable condition.. * Proximal Left Anterior Descending Coronary Artery: 80% stenosis treated with AB MINI TREK 1.50X8 RX BALLOON, AB TREK 2.50X12 RX BALLOON, HARRIS R EDITH 2.75X26 SANJAY, and MDT NC EUPHORA RX 3.28R72BC BALLOON. 0% residual stenosis, KRISTOPHER: 3 flow. Conclusions 1. This is an 84-year-old white female, is admitted to hospital with respiratory failure. She was found to have features of congestive heart failure and non-ST relation myocardial infarction. She had another recent hospital admission with non-ST relation myocardial infarction complicated with heart failure. In view of the recurrent episodes of non-ST relation myocardial infarction and heart failure, in order to further evaluate her coronary status, cardiac catheterization was recommended. Patient underwent left heart catheterization with left and right coronary angiogram today. The findings are as follows. 2. High-grade lesion in the proximal to mid LAD. High-grade lesions in the ostium of the second and third, relatively small caliber diagonal branches of the left anterior descending artery. Mild diffuse disease in the other vessels. Elevated LVEDP of 20 mmHg. 3. Based on the above angiographic findings, it is thought to be appropriate to consider PCI of the LAD lesion. I discussed and reviewed the cardiac origination data with Dr. Aguilar. Dr. Aguilar took over further management of this patient at this point. 4. Prior to LAD intervention discussion was done with primary team regarding dropping platelet counts and administration of heparin in the past. HIT antibodies were pending however primary team hospitalist Dr. Munoz thought the likelihood of HIT is very low and that we should proceed with the intervention. Bivalirudin was not available in the hospital. 5. Proximal Left Anterior Descending Coronary Artery was treated with three Balloon and Drug Eluting Stent. Recommendations * Transfer back to ICU. * Aspirin and Plavix for at least 1 year. * High intensity statin therapy. * Beta-jeff and ARB (has documented allergy to Lisinopril). * Patient can be extubated from cardiology standpoint. Interventional RX Recommendation: PCI w/o planned CABG Diagnostic RX Recommendation: PCI w/o planned CABG Anticoagulation: Heparin LV EDP: 17 mmHg Left Ventriculography Findings: * The LV gram was not performed because of the renal insufficiency. LVEDP was 17 mmHg. Pressures Phase:Rest AO : 183 / 53 ( 102 ) @ 3:06:00 AM 160 / 55 ( 101 ) @ 3:06:00 AM LV : 150 / -5 / @ 3:05:00 AM 150 / -5 / @ 3:06:00 AM Valves Phase:DefaultPhase AV : 0.0 @ 9:12:01 AM AV Mean Gradient: 0.0 @ 9:12:01 AM Clinical Evaluation EBL: 5mL-10mL Procedural Details Procedure Consent Obtained. Pre-Procedure Time Out. Identified patient by full name and date of as verbalized by the patient/guarantor. Does the consent match the physician's order: Yes. Accurate & Complete Informed Consent: Yes. Inpatient/Outpatient History & Physical on Chart: Yes. If H&P is completed, is and addenduem needed: No; If yes, is the addendum complete: N/A Emergent. Visualize and Verify Site with Patient/Guarantor: N/A. Relevant Radiology Images available: Yes. Pre-op teaching completed and patient verbalized understanding. The risks, benefits, and alternatives of sedation and/or procedure were discussed by physician. The patient agrees to continue. Procedure started. Correct patient, site and procedure confirmed by cath team. Current diagnosis: Chest Pain. PERRLA. Strong, equal hand research geneticist bilaterally. Lungs clear x 5 lobes. IV Site on Arrival: 20 gauge in the right anticubital. IV Fluids: 0.9% NaCl at KVO. 0 mL infused prior to corn lab technician. Pre Procedural Pulses: bilateral dorsalis pedis was 2+. Pre Procedural Pulses: bilateral posterior tibial was 2+. Pre Procedural Pulses: bilateral radial was 3+. Oxygen started at 2liters/min via nasal canula. bilateral groins was prepped with chloroprep then draped in the usual sterile fashion. right radial was prepped with chloroprep then draped in the usual sterile fashion. Physician notified. Patient arrived to corn lab technician on a ventilator and will be managed by respiratory. Equipment: 6F - Radial. Cardiac Cath Pack. ACIST Manifold Kit Model BT 2000. Heparinized Saline (2 units/mL), 1000 mL bag. Physician arrived. Physician scrubbed in. Immediate Pre-Procedure Time Out. Correct Patient: Yes; Correct Procedure: Yes; Correct Site: Yes; Correct Patient Position: Yes; Correct Supplies: No; Dried Flammable Prep: Yes; Blood Products Available: No;. Lidocaine 1% infiltrated to the right radial. Arterial access obtained. Manual pressure held to site. Will gain access in the femoral artery. TR band placed on site. Arterial access obtained with micropuncture set. A 5 slovenian JL4 catheter in over wire. Multiple views taken of left coronary artery. Catheter removed over the standard wire. A 5 slovenian JR4 catheter in over wire. Dr. Aguilar notified. Multiple views taken of right coronary artery. Dr. Aguilar arrived. Sheath flushed periodically to maintain patency. A 5 slovenian Angled Pig catheter in over wire. EDP Sample taken: LV 150/-6,17; HR: 85 BPM; SpO2: 96%. Pullback taken: LV 150/-6,17; AO 183/53(102); Mean: 0mmHg, Peak to Peak: 0mmHg, SEP: 25sec/min; HR: 85 BPM; SpO2: 96%. Catheter out. Dr. Aguilar scrubbed in. Hemodynamic formulas in Rest were re-calculated based on hemoglobin value from 02/27/2021 12:00:[address] Aguilar scrubbed in to perform intervention. 5FR sheath exchanged for a 6FR sheath. 6 slovenian XB 3.5 guide catheter was inserted over the wire. Runthrough wire inserted. 2.5x12 balloon inserted but removed intact and undeployed. Inflation number : 1 A AB MINI TREK 1.50X8 RX BALLOON was prepped and advanced across the Prox LAD , then inflated to 12 RAMANDEEP for 0:14 seconds. Inflation number: 2 The AB MINI TREK 1.50X8 RX BALLOON was reinflated across the Prox LAD, to 16 RAMANDEEP for 0:27 seconds. Inflation number: 3 The AB MINI TREK 1.50X8 RX BALLOON was reinflated across the Prox LAD, to 16 RAMANDEEP for 0:20 seconds. Inflation number: 4 The AB MINI TREK 1.50X8 RX BALLOON was reinflated across the Prox LAD, to 16 RAMANDEEP for 0:16 seconds. Balloon out. Inflation number : 5 A AB TREK 2.50X12 RX BALLOON was prepped and advanced across the Prox LAD , then inflated to 12 RAMANDEEP for 0:22 seconds. Inflation number: 6 The AB TREK 2.50X12 RX BALLOON was reinflated across the Prox LAD, to 14 RAMANDEEP for 0:18 seconds. Balloon out. Inflation Number : 7 A MDT R EDITH 2.75X26 SANJAY -Lot Number# [id number] was prepped and advanced across the Prox LAD. The stent was deployed at 15 RAMANDEEP for 0:23 seconds. Stent expiration date 03-05-2021. ACT drawn. Results 355 seconds. Therapeutic limits - pre-heparin administration 90-150 seconds and monitoring heparin during a vascular procedure >250 seconds. Stent balloon out over wire. Inflation number : 8 A MDT NC EUPHORA RX [id number] BALLOON was prepped and advanced across the Prox LAD , then inflated to 18 RAMANDEEP for 0:10 seconds. Inflation number: 9 The MDT NC EUPHORA RX [id number] BALLOON was reinflated across the Prox LAD, to 18 RAMANDEEP for 0:12 seconds. Balloon out. Wire out. Guide catheter out. Sheath(s) sutured into position with 2-0 silk and sterile 4x4's and Op-site applied over the site. No oozing or signs and symptoms of hematoma noted. Arterial sheath flushed and connected to tranducer and pressure bag with heparinized saline. Post Procedure: Pulses reassessed and unchanged. PERRLA. Strong, equal hand research geneticist bilaterally. No VTE prophylaxis required. Contrast type used: Omnipaque 300 mgI/mL, 500 mL bottle. PCI Indication: NSTE. Medication's Wasted: Heparin = 1000 units mL. Medication's Wasted: Lidocaine 1% = 8 mL. Medication's Wasted: Nitro = 50 mg. Medication's Wasted: Other = Versed 2 mg. Medication's Wasted: Other = Fentanyl 100mcg. Total IV fluids: 100 mL. Post-op diagnosis: CAD. Complications: None. Estimated blood loss: 5mL-10mL. Vital chart was stopped. Procedure completed. Patient transferred by bed to ICU. Access Site Site: Right Femoral artery Sheath Size: 6 Fr Hemostasis Success: Unsuccessful Procedure Medications Start: 8:35 AM Stop: 8:35 AM Medication: Heparin Amount: 5000 units Route: I.V. Start: 8:37 AM Stop: 8:37 AM Medication: Aggrastat 12.5 mg/250 mL Amount: 39 ml Route: I.V. bolus Start: 8:44 AM Stop: 8:44 AM Medication: Aggrastat 12.5 mg/250 mL Amount: 14 ml/hr Route: I.VDenisha kaur I, the attending physician, have reviewed and verified all procedure medications. Yes, all medications given per verbal order History/Risk Factors Hypertension: Yes Dyslipidemia: Yes Peripheral Arterial Disease (PAD): No Myocardial Infarction (TN): Yes Obesity: No Renal Disease: No Prior 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 PCI: No CABG: No Valve Surgery: No Report Signatures Interventional Workflow Finalized by Jason Aguilar MD on 12/15/2019 06:53 PM Diagnostic Workflow Finalized by Dr Kelyl Parker MD [facility] on 12/12/2019 01:41 PM
--- NOTE | 2019-12-12 07:22 | W.PM.OPSUD ---
Surgery/Procedure H&P Update DATE OF PROCEDURE: December 12, 2019 DATE H&P PERFORMED: 12/12/19 PREOP DIAGNOSIS: Recurrent non-ST relation myocardial infarction/congestive heart failure PLANNED PROCEDURE: Operation Date: 12/12/19 07:00 Proposed Procedures p Cardiac Catheterization(Left) - Kelly Parker MD PATIENT REASSESSED PRIOR TO SEDATION, WITH NO CHANGE NOTED: Yes PHYSICAL EXAM: alert, oriented x 3 and clear to auscultation bilaterally AIRWAY EVAL/ANESTHESIA PLAN: normal airway, see other exam findings (Patient is on a ventilator, on FiO2 of 35%), ASA III, Risks, benefits & alternatives of sedation and/or procedure discussed and Patient agrees to continue as planned
--- NOTE | 2019-12-12 07:25 | P.PN_ITS ---
Subjective Subjective: Interval history: Patient is feeling okay with no chest pain or palpitations. No new arrhythmias on the monitor. Vital signs are remaining stable. No bleeding complications. Medications: Reviewed: Yes Medication Review Details: Current Medications Acetaminophen (Tylenol) 650 mg PO Q6H PRN PRN Reason: Mild/Mod Pain Or Temp >/= 101 Last Admin: 12/10/19 01:21 Dose: 650 mg Documented by: Hydrocodone Bitart/Acetaminophen ([place] 5-325 Mg) 1 tab PO Q4H PRN PRN Reason: MODERATE TO SEVERE PAIN Albuterol Sulfate (Albuterol) 2.5 mg INHALATION Q4H.RESPIRATORY PRN PRN Reason: SHORTNESS OF BREATH Albuterol/Ipratropium (Duoneb) 3 ml INHALATION Q4H PRN PRN Reason: SHORTNESS OF BREATH Last Admin: 12/08/19 17:00 Dose: 3 ml Documented by: Albuterol/Ipratropium (Duoneb) 3 ml INHALATION Q6H.RESPIRATORY SAÚL Last Admin: 12/12/19 02:47 Dose: 3 ml Documented by: Aspirin (Aspirin) 325 mg PO DAILY SAÚL Last Admin: 12/11/19 08:36 Dose: 325 mg Documented by: Atorvastatin Calcium (Lipitor) 20 mg PO DAILY SAÚL Last Admin: 12/11/19 08:36 Dose: 20 mg Documented by: Bisacodyl (Dulcolax) 10 mg PO DAILY PRN PRN Reason: CONSTIPATION Budesonide (Pulmicort) 0.5 mg INHALATION BID.RESPIRATORY SAÚL Last Admin: 12/11/19 20:43 Dose: 0.5 mg Documented by: Dexamethasone (Decadron) 6 mg IVP Q24H SAÚL Last Admin: 12/11/19 21:26 Dose: 6 mg Documented by: Dextrose (D50w) 25 ml IVP ONCE PRN; Protocol PRN Reason: hypoglycemia protocol Dextrose (D50w) 50 ml IVP PRN PRN; Protocol PRN Reason: hypoglycemia protocol Fentanyl (Sublimaze) 25 mcg IVP Q1H PRN PRN Reason: SEVERE PAIN Last Admin: 12/11/19 03:26 Dose: 25 mcg Documented by: Fondaparinux (Arixtra) 7.5 mg SUBCUT Q24H SAÚL Last Admin: 12/11/19 11:45 Dose: 7.5 mg Documented by: Furosemide (Lasix) 60 mg IVP Q12H SAÚL Last Admin: 12/11/19 21:26 Dose: 60 mg Documented by: Glucagon (Glucagen) 1 mg IM ONCE PRN; Protocol PRN Reason: Adult Acute Hypoglycemia Prot. Dextrose (D5w) 500 mls @ 100 mls/hr IV ONCE PRN; Protocol PRN Reason: Adult Acute Hypoglycemia Prot Imipenem/Cilastatin Sodium 250 (mg/ Sodium Chloride) 100 mls @ 200 mls/hr IV Q8H SAÚL; Protocol Last Admin: 12/12/19 06:40 Dose: 200 mls/hr Documented by: Dexmedetomidine HCl 400 mcg/ (Sodium Chloride) 104 mls @ 0 mls/hr IV .Q0M SAÚL; Protocol Last Admin: 12/12/19 01:10 Dose: 0.4 mcg/kg/hr, 8.5 mls/hr Documented by: Sodium Chloride (Sodium Chloride 0.9%) 1,000 mls @ 50 mls/hr IV .Q20H ONE Stop: 12/12/19 12:42 Last Admin: 12/12/19 04:52 Dose: 50 mls/hr Documented by: Potassium Chloride/Sodium Chloride (Sodium Chlor 0.9% + Kcl 20 Meq) 20 meq in 1,000 mls @ 75 mls/hr IV .[id number] [facility] Last Infusion: 12/12/19 05:16 Dose: 0 mls/hr Documented by: Insulin Aspart (Novolog) 0 unit SUBCUT Q6H [facility]; Protocol Last Admin: 12/12/19 04:51 Dose: 2 unit Documented by: Isosorbide Mononitrate (Ismo) 15 mg PO DAILY [facility] Last Admin: 12/11/19 08:37 Dose: 15 mg Documented by: Levothyroxine Sodium (Synthroid) 200 mcg PO DAILY [facility] Last Admin: 12/11/19 08:37 Dose: 200 mcg Documented by: Metoprolol Tartrate (Lopressor) 12.5 mg PO Q12H [facility] Last Admin: 12/11/19 21:27 Dose: 12.5 mg Documented by: Naloxone HCl (Narcan) 0.1 mg IVP Q2M PRN PRN Reason: OPIATERV Ondansetron HCl (Zofran) 4 mg IVP Q8H PRN PRN Reason: vomiting, or N/V if npo Pantoprazole Sodium (Protonix) 40 mg IVP DAILY [facility] Last Admin: 12/11/19 08:36 Dose: 40 mg Documented by: Potassium Chloride (Klor-Con 10) 20 meq PO DAILY [facility] Last Admin: 12/11/19 08:36 Dose: 20 meq Documented by: Vitals/I&O/Wt Last Vital Signs Temp 98.1 F 12/11/19 19:00 Pulse 86 12/12/19 06:00 Resp 14 12/12/19 05:14 BP 149/69 12/12/19 06:00 Pulse Ox 96 12/12/19 06:00 12/11/19 12/12/19 12/12/19 22:59 06:59 14:59 Intake Total 304 / 408 833.75 / 1241.75 Output Total 3050 / 5450 800 / 6250 Balance -2746 / -5042 33.75 / -5008.25 Weight last 48 hrs Weight 172 lb Physical Exam Narrative: EXAM NARRATIVE: GENERAL: The patient is intubated HEENT: Minimal pallor. No icterus or lymphadenopathy.Oral cavity: There are no mucous membrane lesions. NECK: Trachea appears to be central. No masses noted. No JVD or thyromegaly appreciated. RESPIRATORY: Chest is symmetrical. No intercostals muscle retraction or any accessory muscle activation. There is no chest wall tenderness. Breath sounds are heard bilaterally. No rales or rhonchi heard. No evidence of any consolidation. BREASTS: Deferred. HEART: The heart sounds are normal. No S3 or S4. Short murmur in the left sternal border. No diastolic murmurs. No pericardial rub ABDOMEN: No vessel pulsations or distention. No tenderness. No organomegaly appreciated. Bowel sounds are normally heard. : Deferred. RECTAL: Deferred. LYMPHATIC: No lymphadenopathy noted in the neck . EXTREMITIES: No edema or cyanosis. No clubbing. Peripheral pulses are palpated in fairly good volume and amplitude MUSCULOSKELETAL: No acute joint deformities or swelling SKIN: There are no significant rashes or ecchymosis NEUROPSYCHIATRIC: The patient is intubated and sedated. Seems to be moving all extremities. Const: COMMON NORMALS: alert Resp: COMMON NORMALS: clear to auscultation bilaterally AUSCULTATION: clear to auscultation bilaterally Neuro: SENSORIUM/ORIENTATION: Yes alert Urinary Catheter Management^: Johnson: Cath Placed During This Visit: yes Reason for Continuing Indwelling Catheter: Accurate Measurement of Urinary Output in Critically Ill Patients Urinary Catheter Date of Insertion: 12/08/19 Urinary Catheter Time of Insertion: 10:00 Data : 12/13/19 03:20 12/13/19 03:20 Micro: Microbiology 12/08/19 16:30 Gram Stain - Final Sputum - Endotracheal Tube Aspirate Sputum Culture - Final Moraxella catarrhalis 12/09/19 11:15 Group A Streptococcus Rapid Screen - Final Throat 12/09/19 08:09 Urine Culture - Final Urine,Voided A&P Assessment and plan (1) NSTEMI (non-ST elevated myocardial infarction): Patient underwent left heart catheterization with left and right coronary angiogram today. She was found to have a high-grade lesion in the proximal to mid LAD. Minimal disease in the other vessels. Based on the angiogram findings, it was opted to go ahead with the PCI of the LAD lesion. Dr. Aguilar was consulted for this. Status: Acute (2) Acute diastolic heart failure: Clinically she seems to be compensated. She does not appear to be fluid overloaded. She was hydrated last night. BUN and the creatinine levels are coming down. Status: Acute (3) Acute respiratory failure with hypoxia: Her respiratory status has improved, still on the vent. Status: Acute (4) Multiple myeloma: Management as per the oncology service Status: Acute Qualifiers: Multiple myeloma remission status: not in remission Qualified Code(s): C90.00 - Multiple myeloma not having achieved remission (5) Abnormal cardiovascular stress test: Patient continues to have persistent ST-T changes in the EKG. For further evaluation, a cardiac catheterization would be appropriate. Status: Acute Additional A&P Information The other problems are #1 anemia, stable #2 thrombocytopenia, stable #3 chronic renal insufficiency, no significant change #4 history of essential hypertension, currently normotensive #5 type 2 diabetes, blood sugar fairly under control #6 dyslipidemia #7 hypothyroidism, clinically euthyroid Based on the patient's clinical progress, further recommendations will be made. Attestations Medical Necessity Statement*: Patient requires continued hospital stay for close monitoring and further management Coding Level of Care Code Acute Clinic Physician for Chg Fwd Exam Expanded Problem Focused Diagnoses NSTEMI (non-ST elevated myocardial infarction) I21.4 Acute diastolic heart failure I50.31 Acute respiratory failure with hypoxia J96.01 Multiple myeloma C90.00 Multiple myeloma remission status: not in remission Abnormal cardiovascular stress test R94.39
[2019-12-12 07:39] LABS: Glucose Point of Care 169 mg/dL (70-110)
[2019-12-12 07:39] LABS: Glucose Point of Care 157 mg/dL (70-110)
--- NOTE | 2019-12-12 07:55 | P.PN_ITS ---
Subjective Subjective: Interval history: No acute event overnight. Since morning patient underwent cardiac angiogram early in the morning in which she was found to have a single-vessel disease with 95% occlusion of proximal to mid LAD for which she received 1 drug-eluting stent. Patient had a femoral sheath which was pulled out after 6 hours and was successfully extubated to 4 L nasal cannula at 6 PM. Patient has remained hemodynamically stable and afebrile during the day. Lab and vitals along with urine output noted. Vitals/I&O/Wt Last Vital Signs Temp 98.1 F 12/11/19 19:00 Pulse 86 12/12/19 06:00 Resp 14 12/12/19 05:14 BP 149/69 12/12/19 06:00 Pulse Ox 96 12/12/19 06:00 12/11/19 12/12/19 12/12/19 22:59 06:59 14:59 Intake Total 304 / 408 833.75 / 1241.75 Output Total 3050 / 5450 800 / 6250 Balance -2746 / -5042 33.75 / -5008.25 Weight last 48 hrs Weight 78.018 kg Physical Exam Narrative: EXAM NARRATIVE: General: Sedated on ventilator, awakens to verbal stimulus, following simple commands HEENT: PERRLA, pupils bilaterally equal and reactive Chest: Bronchial breath sounds with coarse crepitations present in right middle zone, equal good air entry bilaterally CVS: S1-S2 regular, no murmurs, no tachycardia, no gallops, no rubs Abdomen: Soft, nontender, no organomegaly, bowel sounds present Neuro: No focal deficits, no facial deformity, AO x3, power 5/5 in all limbs Urinary Catheter Management^: Johnson: Cath Placed During This Visit: yes Reason for Continuing Indwelling Catheter: Accurate Measurement of Urinary Output in Critically Ill Patients Urinary Catheter Date of Insertion: 12/08/19 Urinary Catheter Time of Insertion: 10:00 Data : 12/12/19 03:33 12/12/19 03:33 Micro: Microbiology 12/08/19 16:30 Gram Stain - Final Sputum - Endotracheal Tube Aspirate Sputum Culture - Final Moraxella catarrhalis 12/09/19 11:15 Group A Streptococcus Rapid Screen - Final Throat 12/09/19 08:09 Urine Culture - Final Urine,Voided A&P Assessment and plan (1) Acute respiratory failure with hypoxia: Status: Acute (2) Pneumonia: Status: Acute Qualifiers: Laterality: bilateral Lung location: unspecified part of lung Pneumonia type: due to unspecified organism Qualified Code(s): J18.9 - Pneumonia, unspecified organism (3) NSTEMI (non-ST elevated myocardial infarction): Status: Acute (4) Stented coronary artery: Status: Acute (5) Heart failure: Status: Acute Qualifiers: Heart failure chronicity: acute on chronic Heart failure type: diastolic Qualified Code(s): I50.33 - Acute on chronic diastolic (congestive) heart failure (6) Hypercalcemia: Hypercalcemia of malignancy: Corrected calcium: 12.8 Will give her calcitonin as well as pamidronate Status: Acute (7) Multiple myeloma: Status: Acute (8) Acute kidney injury: Status: Acute (9) Sepsis: Status: Acute Qualifiers: Acute respiratory failure type: with hypoxia Sepsis acute organ dysfunction status: with acute organ dysfunction Sepsis type: sepsis due to unspecified organism Severe sepsis acute organ dysfunction type: acute r espiratory failure Severe sepsis shock status: without septic shock Qualified Code(s): A41.9 - Sepsis, unspecified organism; R65.20 - Severe sepsis without septic shock; J96.01 - Acute respiratory failure with hypoxia (10) Thrombocytopenia: Status: Acute (11) Hypothyroidism: Levothyroxine 150 mcg oral daily Status: Acute Additional A&P Information Sepsis with acute respiratory hypoxic failure: Sepsis ruled in because of leukocytosis, lactic acidosis, fever more than 101 on admission. Respiratory failure multifactorial because of pneumonia. Patient is in ARDS survivor from April 2019 when she was intubated for 3 to 4 days. That time she had strep pneumonia. Patient has finished 3-day course of azithromycin. And vancomycin stopped on November 10 after 3-day course as MRSA is negative. Continue with imipenem. Patient creatinine better now. Will dose imipenem accordingly. Urine Legionella, bacterial antigen, strep, MRSA negative. COVID-19 rapid antigen negative. Budesonide twice daily, DuoNebs every [address] Johnson's recommendations appreciated. Patient does not have much of pleural effusion to tap. Patient CT scan results appreciated. CT scan does show bilateral consolidation which could be reactive adenopathy but cannot rule out consolidations. If patient does not improve patient might require bronchoscopy. Patient successfully extubated on November 11 at 6 PM. Hypercalcemia/multiple myeloma: Patient got pamidronate 90 mg on 12/09/2019. Case discussed with Dr. Reid. Continue dexamethasone 6 mg IV daily. Continue monitor calcium levels daily. NSTEMI/single-vessel disease: Post successful PCI to mid and proximal LAD. Echocardiogram done earlier in this admission showed 40 to 45% with grade 2 diastolic dysfunction with mild LVH with regional wall motion abnormality into mid to apical inferior septum anterior septal luevano. With a decrease in EF since last echocardiogram in April. Continue with aspirin, statins. Will start patient on Plavix 75 mg daily from tomorrow. HIT panel negative. Continue Lasix 40 mg IV twice daily for now. Strict input output charting. Daily weights. Thrombocytopenia: Improving. In April patient's platelet count rebounded to 35,000. HIT panel awaited. Continue to monitor platelet counts and hemoglobin daily for now. Anemia: Stable. Post 1 unit transfusion. Start on iron supplementation orally. Continue to monitor hemoglobin daily. Check stool for occult blood. Hypertension: Goal blood pressure less than 140/90 mmHg keeping mean over 60 mmHg. Continue with home dose of metoprolol 12.5 mg twice daily, Imdur 15 mg daily. We will continue to monitor blood pressures. APOLONIA: Resolving. Multifactorial. Secondary to sepsis, NSTEMI along with multiple contrast studies on admission. Continue to monitor urine output. We will repeat chest x-ray tomorrow morning. Hypothyroidism/elevated free TSH: Free T3 levels low, T4 levels normal. Given ongoing NSTEMI will increase the dose of levothyroxine to 200 mcg daily. Code Status : Full code DVT PPX: Lovenox Patient is improving. Diuresing well. Will discuss with Dr. Parker for a possible cardiac catheterization in next 24 hours. If the plan will be for cardiac catheterization next 24 hours can plan to extubate post procedure otherwise we will plan to extubate later in the day today. Goals of care: Had extensive discussion with patient's daughter and patient at bedside. Discussed that at baseline patient is severely ill because of multiple myeloma for which she has failed multiple chemotherapy lines in the past along with patient being in ARDS survivor in April along with patient having recurrent NSTEMI and possible heparin-induced number cytopenia at present. Risk to discuss that at this makes it difficult to treat the patient as patient is requiring Lovenox will have to monitor hemoglobin and platelet count very clos teresa. Also discussed that patient is having an extensive pneumonia on the right side which could be reactionary but cannot rule out bacterial pneumonia. Also discussed that patient might require bronchoscopy going forward. Also discussed the CODE STATUS. Daughter who is also the DPOAE states for now they would want patient to be full code and if needed reintubation. Patient's daughter and patient updated at bedside. 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 [facility] Fwd Diagnoses Acute respiratory failure with hypoxia J96.01 Pneumonia J18.9 Laterality: bilateral Lung location: unspecified part of lung Pneumonia type: due to unspecified organism NSTEMI (non-ST elevated myocardial infarction) I21.4 Stented coronary artery Z95.5 Heart failure I50.33 Heart failure chronicity: acute on chronic Heart failure type: diastolic Hypercalcemia E83.52 Multiple myeloma C90.00 Acute kidney injury N17.9 Sepsis A41.9; R65.20; J96.01 Acute respiratory failure type: with hypoxia Sepsis acute organ dysfunction status: with acute organ dysfunction Sepsis type: sepsis due to unspecified organism Severe sepsis acute organ dysfunction type: acute respiratory failure Severe sepsis shock status: without septic shock Thrombocytopenia D69.6 Hypothyroidism E03.9
--- NOTE | 2019-12-12 09:53 | PC.NURSE ---
Pt arrived from clinical lab scientist via bed at 0930. Pt mechanically ventilated. Femoral sheath in place - no acute bleeding or hematoma noted. Aggrastat infusing at 14 ml/hour. Pt responds et opens eyes to verbal commands. Will continue to monitor.
[2019-12-12 09:57] LABS: Glucose Point of Care 137 mg/dL (70-110)
[2019-12-12] MEDS: clopidogrel 300 mg Tablet 600 MG PO (10:13)
[2019-12-12] MEDS: FUROsemide 10 mg/mL SDV 4mL 40 MG IVP ×2 (10:15→16:49)
--- NOTE | 2019-12-12 11:39 | PC.NURSE ---
Pt with bleeding/oozing around sheath site. Doctor notified. PTT drawn. Aggrastat d/c at 1135. Will continue to monitor.
[2019-12-12 11:56] LABS: Partial Thromboplastin Time 150.3 SECONDS (23.9-36.7)
[2019-12-12 13:28] LABS: Partial Thromboplastin Time 62.5 SECONDS (23.9-36.7)
[2019-12-12 15:07] LABS: Partial Thromboplastin Time 55.9 SECONDS (23.9-36.7)
[2019-12-12 16:32] LABS: Glucose Point of Care 154 mg/dL (70-110)
[2019-12-12 17:03] LABS: Heparin Induced Platelet AB NEGATIVE (NEGATIVE); Patient O.D 0.007
--- NOTE | 2019-12-12 17:45 | XR_ITS ---
WS: [id number] Portable AP semiupright chest, 12/12/2019 Clinical Data: pre extubation Comparison: Portable chest, 12/11/2019 Findings: The endotracheal tube and nasogastric tube remain in the same position. There is a right pl eural effusion and right consolidation. There is a small left effusion. The heart is at the upper ha[place]on its of normal. The aortic arch and descending aorta show calcification and tortuosity. XR/XR chest 1V portable [id number] Impression: 1. No change in position of endotracheal tube and enteric tube. 2. No change in right lung consolidation. 3. No change in moderate right pleural effusion and small left effusion. 4. No change in cardiomegaly.
[2019-12-12] MEDS: metoprolol tartrate 25 mg Tablet 12.5 MG PO (18:42)
[2019-12-12] MEDS: dexamethasone 4 mg/mL INJ 6 MG IVP (19:41)
--- NOTE | 2019-12-12 20:19 | PC.NURSE ---
Dr. Lewis to bedside, updated patient of results of heart cath. Right groin assessed. No new orders given.
[2019-12-12] MEDS: budesonide 0.5 mg/2 mL Neb INHALATION (20:32)
[2019-12-12 20:53] LABS: UFH High Dose, 100 IU/ML 0 % release; UFH Low Dose, 0.1 IU/ML 0 % release; UFH Low Dose, 0.5 IU/ML 0 % release; UFH SRA Result NEGATIVE (NEGATIVE)
--- NOTE | 2019-12-12 21:48 | PC.NURSE ---
Dressing c/d/i to right groin, no bleeding or hematoma noted. Assisted to BSC, tolerated well.
[2019-12-12 22:00] LABS: Glucose Point of Care 154 mg/dL (70-110)
[2019-12-13] VITALS (23 sets, daily range): BP systolic 129–160; BP diastolic 54–68; PULSE 50–97; RESP 16–27; TEMP 36.7–36.9; O2SAT 91–99
[2019-12-13] MEDS: ALPRAZolam 0.25 mg Tablet PO (00:56)
[2019-12-13] MEDS: ipratropium-albuterol 3 mL Neb INHALATION ×4 (02:09→19:38)
[2019-12-13 03:48] LABS: Hematocrit 30.6 % (37.0-47.0); Hemoglobin 9.5 g/dL (11.5-15.3); Mean Corpuscular Hemoglobin 31.9 pg (28.0-34.0); Mean Corpuscular Volume 102.7 fL (81-99); Mean Platelet Volume 11.4 fL (7.4-10.4); Platelet Count 88 10^3/cmm (130-400); Red Blood Count 2.98 10^6/uL (4.1-5.3); Red Cell Distribution Width 19.7 % (12.1-15.1); White Blood Count 8.1 10^3/uL (4.0-10.0)
[2019-12-13 04:24] LABS: Alanine Aminotransferase 42 U/L (0-33); Albumin Level 2.3 g/dL (3.5-5.2); Alkaline Phosphatase 55 IU/L (35-105); Aspartate Amino Transferase 65 U/L (0-32); Blood Urea Nitrogen 41 mg/dL (8-23); Calcium 10.9 mg/dL (8.5-10.5); Carbon Dioxide 25 mmol/L (22-29); Chloride 103 mmol/L (98-107); Globulin 7.4 g/dL (1.3-4.6); Glucose 177 mg/dL (65-115); Osmolality Calculated 300 mOsm/kg (285-295); Sodium 138 mmol/L (136-145); Total Protein 9.7 g/dL (6.6-8.7)
[2019-12-13 04:27] LABS: Glucose Point of Care 159 mg/dL (70-110)
[2019-12-13 04:51] LABS: Slide Review Slide Review Perform
[2019-12-13 04:53] LABS: Absolute Segmented Neutrophil 6.2 10/cmm (1.6-7.1); Band Neutrophils Absolute 0.4 10^3/cmm (0.0-1.2); Eosinophils 0 %; Lymphocytes 10 %; Monocytes Absolute 0.6 10^3/cmm (0.1-0.6); Segmented Neutrophils 77 %; Total Cells Counted 100 (0-100)
[2019-12-13 04:54] LABS: Absolute Neutrophil 6.6 10^3/cmm (1.4-6.5); Anisocytosis Trace; Macrocytosis 1+; Platelet Estimate Decreased (Normal)
--- NOTE | 2019-12-13 06:00 | XR_ITS ---
WS: [id number] Portable AP upright chest, 12/13/2019 Clinical Data: covid Comparison: Portable chest, 12/12/2019 Findings: The right pleural effusion and right lung consolidation has diminished slightly. There is a left pleural effusion and probable atelectasis in the left lower lobe. The heart remains enlarged. T he aortic arch is tortuous. Endotracheal tube and nasogastric tube have been removed. Monitor leads a re on the chest wall. XR/XR chest 1V portable [id number] Impression: 1. Removal of enteric tube and endotracheal tube. 2. Slight improvement in the right lung with decrease in right effusion and rig ht lung consolidation. 3. No change in left pleural effusion and cardiomegaly.
[2019-12-13] MEDS: metoprolol tartrate 25 mg Tablet 12.5 MG PO (06:30)
[2019-12-13 08:24] LABS: Glucose Point of Care 133 mg/dL (70-110)
--- NOTE | 2019-12-13 09:20 | P.PN_ITS ---
Subjective Subjective: Interval history: No acute events overnight. Last 24 hours patient underwent PCI to proximal mid LAD, extubated in the evening yesterday. Overnight patient has remained stable and on examination patient is on 3 L nasal cannula saturating 95%. Patient was seen by physical therapy today and at present sitting in chair for around an hour. Patient has remained afebrile hem odynamically stable. Labs and vitals noted. Documented urine output since last night around 3 L. Vitals/I&O/Wt Last Vital Signs Temp 98.3 F 12/13/19 07:00 Pulse 78 12/13/19 07:00 Resp 18 12/13/19 07:00 BP 136/59 12/13/19 07:00 Pulse Ox 97 12/13/19 08:14 12/12/19 12/13/19 12/13/19 22:59 06:59 14:59 Intake Total 400 / 500 600 / 1100 Output Total 1800 / 2400 1250 / 3650 Balance -1400 / -1900 -650 / -2550 Weight last 48 hrs Weight 72.892 kg Physical Exam Narrative: EXAM NARRATIVE: General: AOx3, no acute distress, pleasant HEENT: PERRLA, pupils bilaterally equal and reactive Chest: Bronchial breath sounds with coarse crepitations present in right middle zone, fine crackles in lower zones improving, equal good air entry bilaterally CVS: S1-S2 regular, no murmurs, no tachycardia, no gallops, no rubs Abdomen: Soft, nontender, no organomegaly, bowel sounds present Neuro: No focal deficits, no facial deformity, AO x3, power 5/5 in all limbs Urinary Catheter Management^: Johnson: Cath Placed During This Visit: yes Reason for Continuing Indwelling Catheter: Accurate Measurement of Urinary Output in Critically Ill Patients Urinary Catheter Date of Insertion: 12/08/19 Urinary Catheter Time of Insertion: 10:00 Data : 12/13/19 03:20 12/13/19 03:20 A&P Assessment and plan (1) Acute respiratory failure with hypoxia: Status: Acute (2) Pneumonia: Status: Acute Qualifiers: Laterality: bilateral Lung location: unspecified part of lung Pneumonia type: due to unspecified organism Qualified Code(s): J18.9 - Pneumonia, unspecified organism (3) NSTEMI (non-ST elevated myocardial infarction): Status: Acute (4) Stented coronary artery: Status: Acute (5) Heart failure: Status: Acute Qualifiers: Heart failure chronicity: acute on chronic Heart failure type: diastolic Qualified Code(s): I50.33 - Acute on chronic diastolic (congestive) heart failure (6) Hypercalcemia: Hypercalcemia of malignancy: Corrected calcium: 12.8 Will give her calcitonin as well as pamidronate Status: Acute (7) Multiple myeloma: Status: Acute (8) Acute kidney injury: Status: Acute (9) Sepsis: Status: Acute Qualifiers: Acute respiratory failure type: with hypoxia Sepsis acute organ dysfunction status: with acute organ dysfunction Sepsis type: sepsis due to unspecified organism Severe sepsis acute organ dysfunction type: acute respiratory failure Severe sepsis shock status: without septic shock Qualified Code(s): A41.9 - Sepsis, unspecified organism; R65.20 - Severe sepsis without septic shock; J96.01 - Acute respiratory failure with hypoxia (10) Thrombocytopenia: Status: Acute (11) Hypothyroidism: Levothyroxine 150 mcg oral daily Status: Acute Additional A&P Information Sepsis with acute respiratory hypoxic failure: Sepsis ruled in because of leukocytosis, lactic acidosis, fever more than 101 on admission. Respiratory failure multifactorial because of pneumonia. Patient is in ARDS survivor from April 2019 when she was intubated for 3 to 4 days. That time she had strep pneumonia. Patient has finished 3-day course of azithromycin. And vancomycin stopped on November 10 after 3-day course as MRSA is negative. Continue with imipenem. Patient creatinine better now. Will dose imipenem accordingly. Patient extubated yesterday. We will continue imipenem for today 24 hours post extubation to finish a 7-day course as well. Urine Legionella, bacterial antigen, strep, MRSA negative. COVID-19 rapid antigen negative. Budesonide twice daily, DuoNebs every [address] Johnson's recommendations appreciated. Patient does not have much of pleural effusion to tap. Patient CT scan results appreciated. CT scan does show bilateral consolidation which could be reactive adenopathy but cannot rule out consolidations. If patient does not improve patient might require bronchoscopy. Patient successfully extubated on November 11 at 6 PM. Hypercalcemia/multiple myeloma: Patient got pamidronate 90 mg on 12/09/2019. Case discussed with Dr. Reid. Continue dexamethasone 6 mg IV daily. We will start weaning from tomorrow. Continue monitor calcium levels daily. NSTEMI/single-vessel disease: Post successful PCI to mid and proximal LAD. Echocardiogram done earlier in this admission showed 40 to 45% with grade 2 diastolic dysfunction with mild LVH with regional wall motion abnormality into mid to apical inferior septum anterior septal luevano. With a decrease in EF si nce last echocardiogram in April. Continue with aspirin, statins. Will start patient on Plavix 75 mg daily from tomorrow. HIT panel negative. Continue Lasix 40 mg IV twice daily for now. We will switch over to oral Lasix from tomorrow. Strict input output charting. Daily weights. Thrombocytopenia: Stable. In April patient's platelet count rebounded to 35,000. HIT panel negative. Start patient on prophylactic Lovenox dose. Continue to monitor platelet counts and hemoglobin daily for now. Anemia: Stable. Post 1 unit transfusion. Start on iron supplementation orally. Continue to monitor hemoglobin daily. Hypertension: Goal blood pressure less than 140/90 mmHg keeping mean over 60 mmHg. We will increase the dose of metoprolol 25 mg twice daily. Continue with Imdur 15 mg daily. We will continue to monitor blood pressures. APOLONIA: Resolved. Multifactorial. Secondary to sepsis, NSTEMI along with multiple contrast studies on admission. Continue to monitor urine output. Hypothyroidism/elevated free TSH: Free T3 levels low, T4 levels normal. Continue levothyroxine 12 mcg daily. Dose increased during this admission. We will repeat thyroid panel in a month. Code Status : Full code DVT PPX: Lovenox Patient is improving. Diuresing well. Will discuss with Dr. Parker for a possible cardiac catheterization in next 24 hours. If the plan will be for cardiac catheterization next 24 hours can plan to extubate post procedure otherwise we will plan to extubate later in the day today. Goals of care: Had extensive discussion with patient's daughter and patient at bedside. Discussed that at baseline patient is severely ill because of multiple myeloma for which she has failed multiple chemotherapy lines in the past along with patient being in ARDS survivor in April along with patient having recurrent NSTEMI and possible heparin-induced number cytopenia at present. Risk to di scuss that at this makes it difficult to treat the patient as patient is requiring Lovenox will have to monitor hemoglobin and platelet count very closely. Also discussed that patient is having an extensive pneumonia on the right side which could be reactionary but cannot rule out bacterial pneumonia. Also discussed that patient might require bronchoscopy going forward. Also discussed the CODE STATUS. Daughter who is also the DPOAE states for now they would want patient to be full code and if needed reintubation. If patient continues to improve can plan to transfer to cardiac stepdown unit tomorrow. Discharge planning: If patient continues to improve can most likely plan to discharge to home health versus SNF early next week. Attestations Medical Necessity Statement*: Will need continued hospitalization for management of resolving sepsis and congestive heart failure due to pneumonia and NSTEMI post successful PCI to LAD. Time Spent in Patient Care: Greater than 35 minutes (>than 50% of time spent in counselling and/or direct pt care on unit) . 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 Diagnoses Acute respiratory failure with hypoxia J96.01 Pneumonia J18.9 Laterality: bilateral Lung location: unspecified part of lung Pneumonia type: due to unspecified organism NSTEMI (non-ST elevated myocardial infarction) I21.4 Stented coronary artery Z95.5 Heart failure I50.33 Heart failure chronicity: acute on chronic Heart failure type: diastolic Hypercalcemia E83.52 Multiple myeloma C90.00 Acute kidney injury N17.9 Sepsis A41.9; R65.20; J96.01 Acute respiratory failure type: with hypoxia Sepsis acute organ dysfunction status: with acute organ dysfunction Sepsis type: sepsis due to unspecified organism Severe sepsis acute organ dysfunction type: acute respiratory failure Severe sepsis shock status: without septic shock Thrombocytopenia D69.6 Hypothyroidism E03.9
[2019-12-13] MEDS: isosorbide mononitrate 20 mg Tablet 15 MG PO (09:44)
[2019-12-13] MEDS: atorvastatin 40 mg Tablet 20 MG PO (09:44)
[2019-12-13] MEDS: levothyroxine 100 mcg Tablet 200 MCG PO (09:46)
[2019-12-13] MEDS: clopidogrel 75 mg Tablet PO (09:46)
[2019-12-13] MEDS: aspirin 81 mg EC Tablet PO (09:46)
[2019-12-13] MEDS: potassium chloride ER 10 mEq Tablet 20 MEQ PO (09:46)
[2019-12-13] MEDS: FUROsemide 10 mg/mL SDV 4mL 40 MG IVP ×2 (09:47→21:36)
[2019-12-13] MEDS: pantoprazole 40 mg SDV IVP (09:47)
[2019-12-13] MEDS: enoxaparin 40 mg/0.4 mL Syringe SUBCUT (09:57)
[2019-12-13] MEDS: budesonide 0.5 mg/2 mL Neb INHALATION ×2 (10:04→19:38)
[2019-12-13 11:27] LABS: Glucose Point of Care 195 mg/dL (70-110)
[2019-12-13] MEDS: potassium chloride oral liq 20 mEq/15 mL UDC 80 MEQ PO (11:48)
[2019-12-13] MEDS: metoprolol tartrate 25 mg Tablet PO ×2 (11:50→21:36)
--- NOTE | 2019-12-13 13:50 | PM.PN ---
Subjective Subjective: Interval history: Patient is extubated. She is feeling much better. Underwent PCI of the LAD lesion. Shortness of breath has significantly improved. No new symptoms. Medications: Reviewed: Yes Medication Review Details: Current Medications Acetaminophen (Tylenol) 650 mg PO Q6H PRN PRN Reason: Mild/Mod Pain Or Temp >/= 101 Last Admin: 12/10/19 01:21 Dose: 650 mg Documented by: Hydrocodone Bitart/Acetaminophen ([place] 5-325 Mg) 1 tab PO Q6H PRN PRN Reason: MODERATE TO SEVERE PAIN Al Hydrox/Mg Hydrox/Simethicone (Maalox) 30 ml PO Q15M PRN PRN Reason: INDIGESTION Albuterol Sulfate (Albuterol) 2.5 mg INHALATION Q4H.RESPIRATORY PRN PRN Reason: SHORTNESS OF BREATH Albuterol/Ipratropium (Duoneb) 3 ml INHALATION Q4H PRN PRN Reason: SHORTNESS OF BREATH Last Admin: 12/08/19 17:00 Dose: 3 ml Documented by: Albuterol/Ipratropium (Duoneb) 3 ml INHALATION Q6H.RESPIRATORY SAÚL Last Admin: 12/13/19 10:04 Dose: 3 ml Documented by: Alprazolam (Xanax) 0.25 mg PO TID PRN PRN Reason: ANXIETY Last Admin: 12/13/19 00:56 Dose: 0.25 mg Documented by: Aspirin (Aspirin Ec) 81 mg PO DAILY SAÚL Last Admin: 12/13/19 09:46 Dose: 81 mg Documented by: Atorvastatin Calcium (Lipitor) 20 mg PO DAILY SAÚL Last Admin: 12/13/19 09:44 Dose: 20 mg Documented by: Bisacodyl (Dulcolax) 10 mg PO DAILY PRN PRN Reason: CONSTIPATION Budesonide (Pulmicort) 0.5 mg INHALATION BID.RESPIRATORY SAÚL Last Admin: 12/13/19 10:04 Dose: 0.5 mg Documented by: Clopidogrel Bisulfate (Plavix) 75 mg PO DAILY SAÚL Last Admin: 12/13/19 09:46 Dose: 75 mg Documented by: Dexamethasone (Decadron) 6 mg IVP Q24H SAÚL Last Admin: 12/12/19 19:41 Dose: 6 mg Documented by: Dextrose (D50w) 25 ml IVP ONCE PRN; Protocol PRN Reason: hypoglycemia protocol Dextrose (D50w) 50 ml IVP PRN PRN; Protocol PRN Reason: hypoglycemia protocol Enoxaparin Sodium (Lovenox) 40 mg SUBCUT Q24H [facility] Last Admin: 12/13/19 09:57 Dose: 40 mg Documented by: Furosemide (Lasix) 40 mg IVP Q12H [facility] Last Admin: 12/13/19 09:47 Dose: 40 mg Documented by: Glucagon (Glucagen) 1 mg IM ONCE PRN; Protocol PRN Reason: Adult Acute Hypoglycemia Prot. Dextrose (D5w) 500 mls @ 100 mls/hr IV ONCE PRN; Protocol PRN Reason: Adult Acute Hypoglycemia Prot Imipenem/Cilastatin Sodium 250 (mg/ Sodium Chloride) 100 mls @ 200 mls/hr IV Q6H [facility]; Protocol Last Admin: 12/13/19 12:00 Dose: 200 mls/hr Documented by: Insulin Aspart (Novolog) 0 unit SUBCUT AC&BEDTIME [facility]; Protocol Last Admin: 12/13/19 11:48 Dose: 4 unit Documented by: Isosorbide Mononitrate (Ismo) 15 mg PO DAILY [facility] Last Admin: 12/13/19 09:44 Dose: 15 mg Documented by: Levothyroxine Sodium (Synthroid) 200 mcg PO DAILY [facility] Last Admin: 12/13/19 09:46 Dose: 200 mcg Documented by: Magnesium Hydroxide (Milk Of Magnesia) 30 ml PO DAILY PRN PRN Reason: CONSTIPATION Metoprolol Tartrate (Lopressor) 25 mg PO Q12H [facility] Last Admin: 12/13/19 11:50 Dose: 25 mg Documented by: Naloxone HCl (Narcan) 0.1 mg IVP Q2M PRN PRN Reason: OPIATERV Nitroglycerin (Nitrostat) 0.4 mg SUBLINGUAL Q5M PRN PRN Reason: CHEST PAIN Ondansetron HCl (Zofran) 4 mg IVP Q8H PRN PRN Reason: vomiting, or N/V if npo Pantoprazole Sodium (Protonix) 40 mg IVP DAILY [facility] Last Admin: 12/13/19 09:47 Dose: 40 mg Documented by: Potassium Chloride (Klor-Con 10) 20 meq PO DAILY [facility] Last Admin: 12/13/19 09:46 Dose: 20 meq Documented by: Vitals/I&O/Wt Last Vital Signs Temp 98.3 F 12/13/19 07:00 Pulse 75 12/13/19 10:05 Resp 20 H 12/13/19 10:05 BP 136/59 12/13/19 07:00 Pulse Ox 95 12/13/19 10:05 12/12/19 12/13/19 12/13/19 22:59 06:59 14:59 Intake Total 400 / 500 600 / 1100 240 / 240 Output Total 1800 / 2400 1250 / 3650 Balance -1400 / -1900 -650 / -2550 240 / 240 Weight last 48 hrs Weight 160 lb 11.2 oz Physical Exam Narrative: EXAM NARRATIVE: GENERAL: The patient is intubated HEENT: Minimal pallor. No icterus or lymphadenopathy.Oral cavity: There are no mucous membrane lesions. NECK: Trachea appears to be central. No masses noted. No JVD or thyromegaly appreciated. RESPIRATORY: Chest is symmetrical. No intercostals muscle retraction or any accessory muscle activation. There is no chest wall tenderness. Breath sounds are heard bilaterally. No rales or rhonchi heard. No evidence of any consolidation. BREASTS: Deferred. HEART: The heart sounds are normal. No S3 or S4. Short murmur in the left sternal border. No diastolic murmurs. No pericardial rub ABDOMEN: No vessel pulsations or distention. No tenderness. No organomegaly appreciated. Bowel sounds are normally heard. : Deferred. RECTAL: Deferred. LYMPHATIC: No lymphadenopathy noted in the neck . EXTREMITIES: The right groin has no hematoma or bleeding. MUSCULOSKELETAL: No acute joint deformities or swelling SKIN: There are no significant rashes or ecchymosis NEUROPSYCHIATRIC: The patient is intubated and sedated. Seems to be moving all extremities. Const: COMMON NORMALS: alert Resp: COMMON NORMALS: clear to auscultation bilaterally AUSCULTATION: clear to auscultation bilaterally Neuro: SENSORIUM/ORIENTATION: Yes alert Urinary Catheter Management^: Johnson: Cath Placed During This Visit: yes Reason for Continuing Indwelling Catheter: Accurate Measurement of Urinary Output in Critically Ill Patients Urinary Catheter Date of Insertion: 12/08/19 Urinary Catheter Time of Insertion: 10:00 Data : 12/13/19 03:20 12/13/19 03:20 Micro: Microbiology 12/08/19 11:26 Blood Culture - Final Blood NO GROWTH AFTER 5 DAYS 12/08/19 09:17 Blood Culture - Final Blood NO GROWTH AFTER 5 DAYS A&P Assessment and plan (1) NSTEMI (non-ST elevated myocardial infarction): Patient status post PCI of the LAD lesion. Currently seems to be stable. May continue on the aspirin and the Plavix. Status: Acute (2) Acute diastolic heart failure: Clinically she seems to be compensated. She does not appear to be fluid overloaded. She was hydrated last night. BUN and the creatinine levels are coming down. The creatinine is back to normal. Status: Acute (3) Acute respiratory failure with hypoxia: Her respiratory status has improved, s/p extubation Status: Acute (4) Multiple myeloma: Management as per the oncology service Status: Acute Qualifiers: Multiple myeloma remission status: not in remission Qualified Code(s): C90.00 - Multiple myeloma not having achieved remission Additional A&P Information The other problems are #1 anemia, stable #2 thrombocytopenia, stable #3 chronic renal insufficiency, no significant change #4 history of essential hypertension, currently normotensive #5 type 2 diabetes, blood sugar fairly under control #6 dyslipidemia #7 hypothyroidism, clinically euthyroid #8 hypokalemia Based on the patient's clinical progress, further recommendations will be made. Attestations Medical Necessity Statement*: Disposition as per the primary. Coding Level of Care Code Acute Box Folding Machine Operator for [facility] Fwd Exam Expanded Problem Focused Diagnoses NSTEMI (non-ST elevated myocardial infarction) I21.4 Acute diastolic heart failure I50.31 Acute respiratory failure with hypoxia J96.01 Multiple myeloma C90.00 Multiple myeloma remission status: not in remission
[2019-12-13 16:59] LABS: Glucose Point of Care 160 mg/dL (70-110)
--- NOTE | 2019-12-13 19:01 | PC.NURSE ---
Pt did very well today. She is eating about 25% of meals and has drank all of the Ensure drinks on her tray. She is significantly weak, but able to transfer to the chair and bedside commode with 1-2 staff assistance. Oxygen has been weaned to room air. Full bed bath given this morning; gown, socks, and linens were changed. Bean catheter discontinued per order; pt has voided since bean removal. She still has a loose, tight, non-productive cough, but otherwise has no complaints at this time.
[2019-12-13] MEDS: dexamethasone 4 mg/mL INJ 6 MG IVP (19:21)
--- NOTE | 2019-12-13 19:24 | PC.NURSE ---
Upon entering room to assess patient, tight barky sounding cough noted with hoarseness note. On room air with O2 sats of 94-96%. Reports feeling of some difficulty breathing. Lung sounds clear bilat. Placed on O2 at 2L with humidity, warm tea given, notified RT of change in patients condition. O2 sats currently 97%.
[2019-12-13 21:41] LABS: Glucose Point of Care 236 mg/dL (70-110)
[2019-12-14] VITALS (28 sets, daily range): BP systolic 135–155; BP diastolic 57–80; PULSE 73–102; RESP 13–24; TEMP 36.6–36.9; O2SAT 89–100
[2019-12-14] MEDS: ipratropium-albuterol 3 mL Neb INHALATION ×5 (03:05→20:27)
[2019-12-14 04:50] LABS: Basophils % 0.2 %; Hematocrit 30.4 % (37.0-47.0); Hemoglobin 9.3 g/dL (11.5-15.3); Lymphocytes % 8.1 %; Mean Corpuscular HGB Conc 30.6 g/dL (30.0-36.0); Mean Corpuscular Hemoglobin 31.4 pg (28.0-34.0); Mean Corpuscular Volume 102.7 fL (81-99); Mean Platelet Volume 11.5 fL (7.4-10.4); Monocytes # 0.8 10^3/uL (0.2-0.9); Monocytes % 6.7 %; Neutrophils % 78.3 %; Nucleated Red Blood Cells # 0.1 /100WBC; Nucleated Red Blood Cells % 0.4 %; Platelet Count 100 10^3/cmm (130-400); Red Blood Count 2.96 10^6/uL (4.1-5.3); Red Cell Distribution Width 19.6 % (12.1-15.1)
[2019-12-14 05:18] LABS: Alanine Aminotransferase 40 U/L (0-33); Albumin Level 2.4 g/dL (3.5-5.2); Alkaline Phosphatase 72 IU/L (35-105); Aspartate Amino Transferase 62 U/L (0-32); Blood Urea Nitrogen 42 mg/dL (8-23); Calcium 11.8 mg/dL (8.5-10.5); Carbon Dioxide 23 mmol/L (22-29); Chloride 104 mmol/L (98-107); Globulin 7.6 g/dL (1.3-4.6); Glucose 221 mg/dL (65-115); Osmolality Calculated 301 mOsm/kg (285-295); Sodium 137 mmol/L (136-145)
[2019-12-14 05:25] LABS: Total Bilirubin 0.8 mg/dL (0.15-1.2)
[2019-12-14 07:22] LABS: Glucose Point of Care 177 mg/dL (70-110)
[2019-12-14] MEDS: budesonide 0.5 mg/2 mL Neb INHALATION ×2 (08:46→20:27)
[2019-12-14] MEDS: enoxaparin 40 mg/0.4 mL Syringe SUBCUT (08:54)
[2019-12-14] MEDS: isosorbide mononitrate 20 mg Tablet 15 MG PO (08:55)
[2019-12-14] MEDS: levothyroxine 100 mcg Tablet 200 MCG PO (08:55)
[2019-12-14] MEDS: potassium chloride ER 10 mEq Tablet 20 MEQ PO (08:55)
[2019-12-14] MEDS: atorvastatin 40 mg Tablet 20 MG PO (08:56)
[2019-12-14] MEDS: aspirin 81 mg EC Tablet PO (08:56)
[2019-12-14] MEDS: clopidogrel 75 mg Tablet PO (08:56)
[2019-12-14] MEDS: predniSONE 20 mg Tablet 40 MG PO (09:01)
[2019-12-14] MEDS: pantoprazole DR 40 mg Tablet PO (09:01)
[2019-12-14] MEDS: metoprolol tartrate 50 mg Tablet PO ×2 (09:01→20:18)
[2019-12-14] MEDS: FUROsemide 40 mg Tablet PO ×2 (09:10→16:09)
[2019-12-14 11:15] LABS: Glucose Point of Care 231 mg/dL (70-110)
--- NOTE | 2019-12-14 11:28 | PM.PN ---
Subjective Subjective: Interval history: No acute events overnight. Patient continues to do well. On examination she is on 2 L nasal cannula lying comfortably in bed almost at 15 degrees head elevation saturating 97%. States she is doing well with GI soft diet. Denies of having any chest pain, nausea, vomiting, headache. Vitals/I&O/Wt Last Vital Signs Temp 98.1 F 12/14/19 06:59 Pulse 95 12/14/19 08:48 Resp 18 12/14/19 08:47 BP 149/72 12/14/19 06:00 Pulse Ox 95 12/14/19 08:47 12/13/19 12/14/19 12/14/19 22:59 06:59 14:59 Intake Total 980 / 1320 350 / 1670 100 / 100 Output Total 850 / 850 Balance 130 / 470 350 / 820 100 / 100 Weight last 48 hrs Weight 70.896 kg Weight 72.892 kg Physical Exam Narrative: EXAM NARRATIVE: General: AOx3, no acute distress, pleasant, weak HEENT: PERRLA, pupils bilaterally equal and reactive Chest: Bronchial breath sounds with coarse crepitations present in right middle zone, fine crackles in lower zones improving, equal good air entry bilaterally CVS: S1-S2 regular, no murmurs, no tachycardia, no gallops, no rubs Abdomen: Soft, nontender, no organomegaly, bowel sounds present Neuro: No focal deficits, no facial deformity, AO x3, power 5/5 in all limbs Urinary Catheter Management^: Johnson: Cath Placed During This Visit: yes, but has since been removed by the nurse Reason for Continuing Indwelling Catheter: Decision to DC Catheter Urinary Catheter Date of Insertion: 12/08/19 Urinary Catheter Time of Insertion: 10:00 Date Urinary Catheter Removed: 12/13/19 Time Urinary Catheter Discontinued: 15:36 Data : 12/14/19 04:20 12/14/19 04:20 Micro: Microbiology 12/08/19 11:26 Blood Culture - Final Blood NO GROWTH AFTER 5 DAYS 12/08/19 09:17 Blood Culture - Final Blood NO GROWTH AFTER 5 DAYS A&P Assessment and plan (1) Acute respiratory failure with hypoxia: Status: Acute (2) Pneumonia: Status: Acute Qualifiers: Laterality: bilateral Lung location: unspecified part of lung Pneumonia type: due to unspecified organism Qualified Code(s): J18.9 - Pneumonia, unspecified organism (3) NSTEMI (non-ST elevated myocardial infarction): Status: Acute (4) Stented coronary artery: Status: Acute (5) Heart failure: Status: Acute Qualifiers: Heart failure chronicity: acute on chronic Heart failure type: diastolic Qualified Code(s): I50.33 - Acute on chronic diastolic (congestive) heart failure (6) Hypercalcemia: Hypercalcemia of malignancy: Corrected calcium: 12.8 Will give her calcitonin as well as pamidronate Status: Acute (7) Multiple myeloma: Status: Acute (8) Acute kidney injury: Status: Acute (9) Sepsis: Status: Acute Qualifiers: Acute respiratory failure type: with hypoxia Sepsis acute organ dysfunction status: with acute organ dysfunction Sepsis type: sepsis due to unspecified organism Severe sepsis acute organ dysfunction type: acute respiratory failure Severe sepsis shock status: without septic shock Qualified Code(s): A41.9 - Sepsis, unspecified organism; R65.20 - Severe sepsis without septic shock; J96.01 - Acute respiratory failure with hypoxia (10) Thrombocytopenia: Status: Acute (11) Hypothyroidism: Levothyroxine 150 mcg oral daily Status: Acute (12) Physical deconditioning: Status: Acute Additional A&P Information Sepsis with acute respiratory hypoxic failure: Sepsis ruled in because of leukocytosis, lactic acidosis, fever more than 101 on admission. Respiratory failure multifactorial because of pneumonia. Patient is in ARDS survivor from April 2019 when she was intubated for 3 to 4 days. That time she had strep pneumonia. Patient has finished 3-day course of azithromycin. And vancomycin stopped on November 10 after 3-day course as MRSA is negative.Last day of imipenem today. We will stop antibiotics and monitor. Patient has remained afebrile. Urine Legionella, bacterial antigen, strep, MRSA negative. COVID-19 rapid antigen negative. Budesonide twice daily, DuoNebs every [address] Johnson's recommendations appreciated. Patient does not have much of pleural effusion to tap. Patient CT scan results appreciated. CT scan does show bilateral consolidation which could be reactive adenopathy but cannot rule out consolidations. If patient does not improve patient might require bronchoscopy. Patient successfully extubated on November 11 at 6 PM. Hypercalcemia/multiple myeloma: Patient got pamidronate 90 mg on 12/09/2019. Case discussed with Dr. Reid. Continue dexamethasone 6 mg IV daily. We will start weaning from tomorrow. Continue monitor calcium levels daily. NSTEMI/single-vessel disease: Post successful PCI to mid and proximal LAD. Echocardiogram done earlier in this admission showed 40 to 45% with grade 2 diastolic dysfunction with mild LVH with regional wall motion abnormality into mid to apical inferior septum anterior septal luevano. With a decrease in EF since last echocardiogram in April. Continue with aspirin, statins. Will start patient on Plavix 75 mg daily from tomorrow. Will increase metoprolol to 50 mg twice daily. HIT panel negative. Switch Lasix to 40 mg oral twice daily. Fluid restriction up to 1500 cc. Strict input output charting. Since admission 7 L negative but in last 24 hours 800 cc positive. Daily weights. Thrombocytopenia: Stable. In April patient's platelet count rebounded to 35,000. HIT panel negative. Start patient on prophylactic Lovenox dose. Continue to monitor platelet counts and hemoglobin daily for now. Anemia: Stable. Post 1 unit transfusion. Start on iron supplementation orally. Continue to monitor hemoglobin daily. Hypertension: Goal blood pressure less than 140/90 mmHg keeping mean over 60 mmHg. Blood pressure mildly elevated. Increase dose of metoprolol to 50 mg twice daily. Continue with Imdur 15 mg daily. We will continue to monitor blood pressures. APOLONIA: Resolved. Multifactorial. Secondary to sepsis, NSTEMI along with multiple contrast studies on admission. Continue to monitor urine output. Hypothyroidism/elevated free TSH: Free T3 levels low, T4 levels normal. Continue levothyroxine 12 mcg daily. Dose increased during this admission. We will repeat thyroid panel in a month. Code Status : Full code DVT PPX: Lovenox GI soft diet with Glucerna. Goals of care: Had extensive discussion with patient's daughter and patient at bedside. Discussed that at baseline patient is severely ill because of multiple myeloma for which she has failed multiple chemotherapy lines in the past along with patient being in ARDS survivor in April along with patient having recurrent NSTEMI and possible heparin-induced number cytopenia at present. Risk to discuss that at this makes it difficult to treat the patient as patient is requiring Lovenox will have to monitor hemoglobin and platelet count very closely. Also discussed that patient is having an extensive pneumonia on the right side which could be reactionary but cannot rule out bacterial pneumonia. Also discussed that patient might require bronchoscopy going forward. Also discussed the CODE STATUS. Daughter who is also the DPOAE states for now they would want patient to be full code and if needed reintubation. Transfer to [facility]. Discharge planning: If patient continues to improve can most likely plan to discharge to home health versus SNF early next week. Attestations Medical Necessity Statement*: Needs further hospitalization for management of sepsis with acute respiratory hypoxic failure because of pneumonia, congestive heart failure, NSTEMI requiring PCI, severe generalized deconditioning because of prolonged hospitalization. Time Spent in Patient Care: Greater than 35 minutes (>than 50% of time spent in counselling and/or direct pt care on unit). Coding Level of Care Code Acute Cardio Clinician for [facility] Fwd Diagnoses Acute respiratory failure with hypoxia J96.01 Pneumonia J18.9 Laterality: bilateral Lung location: unspecified part of lung Pneumonia type: due to unspecified organism NSTEMI (non-ST elevated myocardial infarction) I21.4 Stented coronary artery Z95.5 Heart failure I50.33 Heart failure chronicity: acute on chronic Heart failure type: diastolic Hypercalcemia E83.52 Multiple myeloma C90.00 Acute kidney injury N17.9 Sepsis A41.9; R65.20; J96.01 Acute respiratory failure type: with hypoxia Sepsis acute organ dysfunction status: with acute organ dysfunction Sepsis type: sepsis due to unspecified organism Severe sepsis acute organ dysfunction type: acute respiratory failure Severe sepsis shock status: without septic shock Thrombocytopenia D69.6 Hypothyroidism E03.9 Physical deconditioning R53.81
--- NOTE | 2019-12-14 13:07 | P.PN_ITS ---
Subjective Subjective: Interval history: Patient denies any chest pain or chest tightness. No unusual shortness of breath. Vital signs are stable. No bleeding complications Medications: Reviewed: Yes Medication Review Details: Current Medications Acetaminophen (Tylenol) 650 mg PO Q6H PRN PRN Reason: Mild/Mod Pain Or Temp >/= 101 Last Admin: 12/10/19 01:21 Dose: 650 mg Documented by: Hydrocodone Bitart/Acetaminophen ([place] 5-325 Mg) 1 tab PO Q6H PRN PRN Reason: MODERATE TO SEVERE PAIN Al Hydrox/Mg Hydrox/Simethicone (Maalox) 30 ml PO Q15M PRN PRN Reason: INDIGESTION Albuterol Sulfate (Albuterol) 2.5 mg INHALATION Q4H.RESPIRATORY PRN PRN Reason: SHORTNESS OF BREATH Albuterol/Ipratropium (Duoneb) 3 ml INHALATION Q4H PRN PRN Reason: SHORTNESS OF BREATH Last Admin: 12/13/19 19:38 Dose: 3 ml Documented by: Albuterol/Ipratropium (Duoneb) 3 ml INHALATION Q6H.RESPIRATORY SAÚL Last Admin: 12/14/19 08:46 Dose: 3 ml Documented by: Alprazolam (Xanax) 0.25 mg PO TID PRN PRN Reason: ANXIETY Last Admin: 12/13/19 00:56 Dose: 0.25 mg Documented by: Aspirin (Aspirin Ec) 81 mg PO DAILY [facility] Last Admin: 12/14/19 08:56 Dose: 81 mg Documented by: Atorvastatin Calcium (Lipitor) 20 mg PO DAILY [facility] Last Admin: 12/14/19 08:56 Dose: 20 mg Documented by: Bisacodyl (Dulcolax) 10 mg PO DAILY PRN PRN Reason: CONSTIPATION Budesonide (Pulmicort) 0.5 mg INHALATION BID.RESPIRATORY SAÚL Last Admin: 12/14/19 08:46 Dose: 0.5 mg Documented by: Clopidogrel Bisulfate (Plavix) 75 mg PO DAILY [facility] Last Admin: 12/14/19 08:56 Dose: 75 mg Documented by: Dextrose (D50w) 25 ml IVP ONCE PRN; Protocol PRN Reason: hypoglycemia protocol Dextrose (D50w) 50 ml IVP PRN PRN; Protocol PRN Reason: hypoglycemia protocol Enoxaparin Sodium (Lovenox) 40 mg SUBCUT Q24H [facility] Last Admin: 12/14/19 08:54 Dose: 40 mg Documented by: Furosemide (Lasix) 40 mg PO BID@08,16 [facility] Last Admin: 12/14/19 09:10 Dose: 40 mg Documented by: Glucagon (Glucagen) 1 mg IM ONCE PRN; Protocol PRN Reason: Adult Acute Hypoglycemia Prot. Dextrose (D5w) 500 mls @ 100 mls/hr IV ONCE PRN; Protocol PRN Reason: Adult Acute Hypoglycemia Prot Imipenem/Cilastatin Sodium 250 (mg/ Sodium Chloride) 100 mls @ 200 mls/hr IV Q6H [facility]; Protocol Last Infusion: 12/14/19 07:07 Dose: Infused Documented by: Insulin Aspart (Novolog) 0 unit SUBCUT AC&BEDTIME [facility]; Protocol Last Admin: 12/14/19 11:19 Dose: 6 unit Documented by: Isosorbide Mononitrate (Ismo) 15 mg PO DAILY [facility] Last Admin: 12/14/19 08:55 Dose: 15 mg Documented by: Levothyroxine Sodium (Synthroid) 200 mcg PO DAILY [facility] Last Admin: 12/14/19 08:55 Dose: 200 mcg Documented by: Magnesium Hydroxide (Milk Of Magnesia) 30 ml PO DAILY PRN PRN Reason: CONSTIPATION Metoprolol Tartrate (Lopressor) 50 mg PO Q12H [facility] Last Admin: 12/14/19 09:01 Dose: 50 mg Documented by: Naloxone HCl (Narcan) 0.1 mg IVP Q2M PRN PRN Reason: OPIATERV Nitroglycerin (Nitrostat) 0.4 mg SUBLINGUAL Q5M PRN PRN Reason: CHEST PAIN Ondansetron HCl (Zofran) 4 mg IVP Q8H PRN PRN Reason: vomiting, or N/V if npo Pantoprazole Sodium (Protonix) 40 mg PO DAILY [facility] Last Admin: 12/14/19 09:01 Dose: 40 mg Documented by: Potassium Chloride (Klor-Con 10) 20 meq PO DAILY [facility] Last Admin: 12/14/19 08:55 Dose: 20 meq Documented by: Prednisone (Prednisone) 40 mg PO DAILY [facility] Stop: 12/16/19 12:00 Last Admin: 12/14/19 09:01 Dose: 40 mg Documented by: Vitals/I&O/Wt Last Vital Signs Temp 98.1 F 10/17/20 07:00 Pulse 95 12/14/19 12:00 Resp 22 H 12/14/19 12:00 BP 135/63 12/14/19 12:00 Pulse Ox 97 12/14/19 12:00 12/13/19 12/14/19 12/14/19 22:59 06:59 14:59 Intake Total 980 / 1320 350 / 1670 100 / 100 Output Total 850 / 850 Balance 130 / 470 350 / 820 100 / 100 Weight last 48 hrs Weight 156 lb 4.8 oz Weight 160 lb 11.2 oz Physical Exam Narrative: EXAM NARRATIVE: GENERAL: The patient is extubated HEENT: Minimal pallor. No icterus or lymphadenopathy.Oral cavity: There are no mucous membrane lesions. NECK: Trachea appears to be central. No masses noted. No JVD or thyromegaly appreciated. RESPIRATORY: Chest is symmetrical. No intercostals muscle retraction or any accessory muscle activation. There is no chest wall tenderness. Breath sounds are heard bilaterally. No rales or rhonchi heard. No evidence of any consolidation. BREASTS: Deferred. HEART: The heart sounds are normal. No S3 or S4. Short murmur in the left oleksandr rnal border. No diastolic murmurs. No pericardial rub ABDOMEN: No vessel pulsations or distention. No tenderness. No organomegaly appreciated. Bowel sounds are normally heard. : Deferred. RECTAL: Deferred. LYMPHATIC: No lymphadenopathy noted in the neck . EXTREMITIES: The right groin has no hematoma or bleeding. MUSCULOSKELETAL: No acute joint deformities or swelling SKIN: There are no significant rashes or ecchymosis NEUROPSYCHIATRIC: The patient is intubated and sedated. Seems to be moving all extremities. Const: COMMON NORMALS: alert Resp: COMMON NORMALS: clear to auscultation bilaterally AUSCULTATION: clear to auscultation bilaterally Neuro: SENSORIUM/ORIENTATION: Yes alert Urinary Catheter Management^: Johnson: Cath Placed During This Visit: yes, but has since been removed by the nurse Reason for Continuing Indwelling Catheter: Decision to DC Catheter Urinary Catheter Date of Insertion: 12/08/19 Urinary Catheter Time of Insertion: 10:00 Date Urinary Catheter Removed: 12/13/19 Time Urinary Catheter Discontinued: 15:36 Data : 12/15/19 05:29 10/18/20 05:29 Micro: Microbiology 12/08/19 11:26 Blood Culture - Final Blood NO GROWTH AFTER 5 DAYS 12/08/19 09:17 Blood Culture - Final Blood NO GROWTH AFTER 5 DAYS A&P Assessment and plan (1) NSTEMI (non-ST elevated myocardial infarction): Patient status post PCI of the LAD lesion. Currently seems to be stable. May continue on the aspirin and the Plavix. Status: Acute (2) Acute diastolic heart failure: Clinically she seems to be compensated. She does not appear to be fluid overloaded. She was hydrated last night. BUN and the creatinine levels are stable Status: Acute (3) Acute respiratory failure with hypoxia: Her respiratory status has improved, s/p extubation Status: Acute (4) Multiple myeloma: Management as per the oncology service Status: Acute Qualifiers: Multiple myeloma remission status: not in remission Qualified Code(s): C90.00 - Multiple myeloma not having achieved remission Additional A&P Information The other problems are #1 anemia, stable #2 thrombocytopenia, stable #3 chronic renal insufficiency, no significant change #4 history of essential hypertension, currently normotensive #5 type 2 diabetes, blood sugar fairly under control #6 dyslipidemia #7 hypothyroidism, clinically euthyroid #8 hypokalemia, improved Based on the patient's clinical progress, further recommendations will be made. Attestations Medical Necessity Statement*: Deferred to the primary Coding Level of Care Code Acute Fruit Checker for Kamila Fwd Exam Expanded Problem Focused Diagnoses NSTEMI (non-ST elevated myocardial infarction) I21.4 Acute diastolic heart failure I50.31 Acute respiratory failure with hypoxia J96.01 Multiple myeloma C90.00 Multiple myeloma remission status: not in remission
--- NOTE | 2019-12-14 13:21 | PC.NURSE ---
Pt transferred to [facility] room 112-1 at approximately 12:35pm via wheelchair by housekeeping director with eligibility technician in place. All personal belongings sent with patient. Report called to receiving nurse, Kami, just prior to transfer. All questions answered. Lunch tray sent with patient. Daughter Carleen updated via telephone of new room number.
[2019-12-14 16:08] LABS: Glucose Point of Care 227 mg/dL (70-110)
--- NOTE | 2019-12-14 18:35 | PC.NURSE ---
DISCUSSED WITH DR. CALDWELL PATIENT'S LOW URINE OUTPUT THIS SHIFT. NO NEW ORDERS AT THIS TIME.
[2019-12-14 20:41] LABS: Glucose Point of Care 247 mg/dL (70-110)
[2019-12-15] VITALS (9 sets, daily range): BP systolic 125–158; BP diastolic 57–82; PULSE 71–85; RESP 12–23; TEMP 36.4–36.7; O2SAT 87–97; BMI 25.7
--- NOTE | 2019-12-15 01:58 | PC.NURSE ---
0130 Patient awake out of bed, gown off and IV out. Stating she is going to the bathroom. VS as noted. Patient reminded to use the call light for assistance. Oriented X3. Bed Alarm turned on to prevent fall in the future. new IV started as documented.
--- NOTE | 2019-12-15 04:13 | PC.NURSE ---
0415 patient awakens periodically attempting to get out of bed. Very briefly disoriented thinking shes at home, but oriented x3 without reorientation. VS as noted. Very pleasant.
[2019-12-15 05:51] LABS: Basophils % 0.2 %; Eosinophils % 0.1 %; Hematocrit 29.3 % (37.0-47.0); Hemoglobin 8.9 g/dL (11.5-15.3); Lymphocytes # 0.8 10^3/uL (0.8-4.8); Lymphocytes % 6.3 %; Mean Corpuscular HGB Conc 30.4 g/dL (30.0-36.0); Mean Corpuscular Hemoglobin 31.2 pg (28.0-34.0); Mean Corpuscular Volume 102.8 fL (81-99); Mean Platelet Volume 11.4 fL (7.4-10.4); Monocytes # 0.8 10^3/uL (0.2-0.9); Monocytes % 6.3 %; Neutrophils # 10.17 10^3/uL (1.8-7.7); Nucleated Red Blood Cells # 0.1 /100WBC; Nucleated Red Blood Cells % 0.7 %; Platelet Count 93 10^3/cmm (130-400); Red Blood Count 2.85 10^6/uL (4.1-5.3); Red Cell Distribution Width 19.2 % (12.1-15.1); White Blood Count 12.6 10^3/uL (4.0-10.0)
--- NOTE | 2019-12-15 06:00 | XRR_ITS ---
PROCEDURE INFORMATION: Exam: XR Chest, 1 View Exam date and time: 12/15/2019 6:21 AM Age: 84 years old Clinical indication: Condition or disease; Lung condition and disease; Other: Covid TECHNIQUE: Imaging protocol: XR of the chest Views: 1 view. COMPARISON: CR XR chest 1V portable [id number] 12/13/2019 4:22 AM FINDINGS: Lungs: Right juxtahilar airspace disease continues without significant change. Improvement in left infrahilar airspace disease. Pleural space: Small bilateral pleural effusions without significant interval change. Heart/Mediastinum: The cardiac silhouette is not enlarged. The mediastinal contours are normal. Vasculature: The thoracic aorta is atherosclerotic. Bones/joints: No acute osseous abnormality. XR/XR chest 1V portable [id number] IMPRESSION: 1. Improvement in left infrahilar airspace disease. 2. No significant change in right juxtahilar airspace disease, nor bilateral pleural effusions.
[2019-12-15 06:15] LABS: Glucose Point of Care 164 mg/dL (70-110)
[2019-12-15 06:30] LABS: Alanine Aminotransferase 36 U/L (0-33); Albumin Level 2.5 g/dL (3.5-5.2); Alkaline Phosphatase 78 IU/L (35-105); Anion Gap 13.7 (5-19); Aspartate Amino Transferase 57 U/L (0-32); Blood Urea Nitrogen 36 mg/dL (8-23); Calcium 11.9 mg/dL (8.5-10.5); Carbon Dioxide 26 mmol/L (22-29); Chloride 101 mmol/L (98-107); Globulin 7.6 g/dL (1.3-4.6); Glucose 165 mg/dL (65-115); Osmolality Calculated 296 mOsm/kg (285-295); Potassium 3.7 mmol/L (3.5-5.1); Sodium 137 mmol/L (136-145); Total Bilirubin 1.2 mg/dL (0.15-1.2); Total Protein 10.1 g/dL (6.6-8.7)
--- NOTE | 2019-12-15 07:00 | PC.NURSE ---
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
[2019-12-15 07:40] LABS: Neutrophils % 87.1 %
[2019-12-15 07:41] LABS: Slide Review Slide Review Perform
[2019-12-15] MEDS: metoprolol tartrate 50 mg Tablet PO (07:57)
[2019-12-15] MEDS: FUROsemide 40 mg Tablet PO (07:58)
[2019-12-15] MEDS: potassium chloride ER 10 mEq Tablet 20 MEQ PO (08:02)
[2019-12-15] MEDS: levothyroxine 100 mcg Tablet 200 MCG PO (08:02)
[2019-12-15] MEDS: pantoprazole DR 40 mg Tablet PO (08:02)
[2019-12-15] MEDS: clopidogrel 75 mg Tablet PO (08:02)
[2019-12-15] MEDS: predniSONE 20 mg Tablet 40 MG PO (08:02)
[2019-12-15] MEDS: isosorbide mononitrate 20 mg Tablet 15 MG PO (08:03)
[2019-12-15] MEDS: atorvastatin 40 mg Tablet 20 MG PO (08:06)
[2019-12-15] MEDS: aspirin 81 mg EC Tablet PO (08:06)
--- NOTE | 2019-12-15 09:42 | P.PN_ITS ---
Subjective Subjective: Interval history: Patient is feeling okay. No chest pain or palpitations. No shortness of breath. Vital signs remained stable. No arrhythmias are seen on the monitor. Medications: Reviewed: Yes Medication Review Details: Current Medications Acetaminophen (Tylenol) 650 mg PO Q6H PRN PRN Reason: Mild/Mod Pain Or Temp >/= 101 Last Admin: 12/10/19 01:21 Dose: 650 mg Documented by: Hydrocodone Bitart/Acetaminophen ([place] 5-325 Mg) 1 tab PO Q6H PRN PRN Reason: MODERATE TO SEVERE PAIN Al Hydrox/Mg Hydrox/Simethicone (Maalox) 30 ml PO Q15M PRN PRN Reason: INDIGESTION Albuterol Sulfate (Albuterol) 2.5 mg INHALATION Q4H.RESPIRATORY PRN PRN Reason: SHORTNESS OF BREATH Last Admin: 12/14/19 15:18 Dose: 2.5 mg Documented by: Albuterol/Ipratropium (Duoneb) 3 ml INHALATION Q4H PRN PRN Reason: SHORTNESS OF BREATH Last Admin: 12/13/19 19:38 Dose: 3 ml Documented by: Albuterol/Ipratropium (Duoneb) 3 ml INHALATION Q6H.RESPIRATORY SAÚL Last Admin: 12/15/19 06:52 Dose: Not Given Documented by: Alprazolam (Xanax) 0.25 mg PO TID PRN PRN Reason: ANXIETY Last Admin: 12/13/19 00:56 Dose: 0.25 mg Documented by: Aspirin (Aspirin Ec) 81 mg PO DAILY SAÚL Last Admin: 12/15/19 08:06 Dose: 81 mg Documented by: Atorvastatin Calcium (Lipitor) 20 mg PO DAILY SAÚL Last Admin: 12/15/19 08:06 Dose: 20 mg Documented by: Bisacodyl (Dulcolax) 10 mg PO DAILY PRN PRN Reason: CONSTIPATION Budesonide (Pulmicort) 0.5 mg INHALATION BID.RESPIRATORY SAÚL Last Admin: 12/14/19 20:27 Dose: 0.5 mg Documented by: Clopidogrel Bisulfate (Plavix) 75 mg PO DAILY [facility] Last Admin: 12/15/19 08:02 Dose: 75 mg Documented by: Dextrose (D50w) 25 ml IVP ONCE PRN; Protocol PRN Reason: hypoglycemia protocol Dextrose (D50w) 50 ml IVP PRN PRN; Protocol PRN Reason: hypoglycemia protocol Enoxaparin Sodium (Lovenox) 40 mg SUBCUT Q24H [facility] Last Admin: 12/14/19 08:54 Dose: 40 mg Documented by: Furosemide (Lasix) 40 mg PO BID@08,16 [facility] Last Admin: 12/15/19 07:58 Dose: 40 mg Documented by: Glucagon (Glucagen) 1 mg IM ONCE PRN; Protocol PRN Reason: Adult Acute Hypoglycemia Prot. Dextrose (D5w) 500 mls @ 100 mls/hr IV ONCE PRN; Protocol PRN Reason: Adult Acute Hypoglycemia Prot Insulin Aspart (Novolog) 0 unit SUBCUT AC&BEDTIME [facility]; Protocol Last Admin: 12/15/19 07:52 Dose: 2 unit Documented by: Isosorbide Mononitrate (Ismo) 15 mg PO DAILY [facility] Last Admin: 12/15/19 08:03 Dose: 15 mg Documented by: Levothyroxine Sodium (Synthroid) 200 mcg PO DAILY [facility] Last Admin: 12/15/19 08:02 Dose: 200 mcg Documented by: Magnesium Hydroxide (Milk Of Magnesia) 30 ml PO DAILY PRN PRN Reason: CONSTIPATION Metoprolol Tartrate (Lopressor) 50 mg PO Q12H [facility] Last Admin: 12/15/19 07:57 Dose: 50 mg Documented by: Naloxone HCl (Narcan) 0.1 mg IVP Q2M PRN PRN Reason: OPIATERV Nitroglycerin (Nitrostat) 0.4 mg SUBLINGUAL Q5M PRN PRN Reason: CHEST PAIN Ondansetron HCl (Zofran) 4 mg IVP Q8H PRN PRN Reason: vomiting, or N/V if npo Pantoprazole Sodium (Protonix) 40 mg PO DAILY [facility] Last Admin: 12/15/19 08:02 Dose: 40 mg Documented by: Potassium Chloride (Klor-Con 10) 20 meq PO DAILY [facility] Last Admin: 12/15/19 08:02 Dose: 20 meq Documented by: Prednisone (Prednisone) 40 mg PO DAILY [facility] Stop: 12/16/19 12:00 Last Admin: 12/15/19 08:02 Dose: 40 mg Documented by: Vitals/I&O/Wt Last Vital Signs Temp 98.0 F 12/15/19 07:28 Pulse 73 12/15/19 07:28 Resp 23 H 12/15/19 07:28 BP 158/70 12/15/19 07:28 Pulse Ox 92 12/15/19 07:28 12/14/19 12/15/19 12/15/19 22:59 06:59 14:59 Output Total 500 / 500 Balance -500 / 300 Weight last 48 hrs Weight 159 lb 2 oz Weight 156 lb 4.8 oz Physical Exam Narrative: EXAM NARRATIVE: GENERAL: The patient is extubated HEENT: Minimal pallor. No icterus or lymphadenopathy.Oral cavity: There are no mucous membrane lesions. NECK: Trachea appears to be central. No masses noted. No JVD or thyromegaly appreciated. RESPIRATORY: Chest is symmetrical. No intercostals muscle retraction or any acce ssory muscle activation. There is no chest wall tenderness. Breath sounds are heard bilaterally. No rales or rhonchi heard. No evidence of any consolidation. BREASTS: Deferred. HEART: The heart sounds are normal. No S3 or S4. Short murmur in the left sternal border. No diastolic murmurs. No pericardial rub ABDOMEN: No vessel pulsations or distention. No tenderness. No organomegaly appreciated. Bowel sounds are normally heard. : Deferred. RECTAL: Deferred. LYMPHATIC: No lymphadenopathy noted in the neck . EXTREMITIES: The right groin has no hematoma or bleeding. MUSCULOSKELETAL: No acute joint deformities or swelling SKIN: There are no significant rashes or ecchymosis NEUROPSYCHIATRIC: The patient is intubated and sedated. Seems to be moving all extremities. Const: COMMON NORMALS: alert Resp: COMMON NORMALS: clear to auscultation bilaterally AUSCULTATION: clear to auscultation bilaterally Neuro: SENSORIUM/ORIENTATION: Yes alert Urinary Catheter Management^: Johnson: Cath Placed During This Visit: yes, but has since been removed by the nurse Reason for Continuing Indwelling Catheter: Decision to DC Catheter Urinary Catheter Date of Insertion: 12/08/19 Urinary Catheter Time of Insertion: 10:00 Date Urinary Catheter Removed: 12/13/19 Time Urinary Catheter Discontinued: 15:36 Data : 12/15/19 05:29 12/15/19 05:29 Other Labs: Laboratory Last Values WBC 12.6 10^3/uL (4.0-10.0) H 12/15/19 05:29 RBC 2.85 10^6/uL (4.1-5.3) L 12/15/19 05:29 Hgb 8.9 g/dL (11.5-15.3) L 12/15/19 05:29 Hct 29.3 % (37.0-47.0) L 12/15/19 05:29 MCV 102.8 fL (81-99) H 12/15/19 05:29 MCH 31.2 pg (28.0-34.0) 12/15/19 05:29 MCHC 30.4 g/dL (30.0-36.0) 12/15/19 05:29 RDW 19.2 % (12.1-15.1) H 12/15/19 05:29 Plt Count 93 10^3/cmm (130-400) L 12/15/19 05:29 MPV 11.4 fL (7.4-10.4) H 12/15/19 05:29 Neut % (Auto) 87.1 % 12/15/19 05:29 Lymph % (Auto) 6.3 % 12/15/19 05:29 Sargent % (Auto) 6.3 % 12/15/19 05:29 Eos % (Auto) 0.1 % 12/15/19 05:29 Baso % (Auto) 0.2 % 12/15/19 05:29 Neut # (Auto) 10.17 10^3/uL (1.8-7.7) H 12/15/19 05:29 Lymph # (Auto) 0.8 10^3/uL (0.8-4.8) 12/15/19 05:29 Sargent # (Auto) 0.8 10^3/uL (0.2-0.9) 12/15/19 05:29 Eos # (Auto) 0.0 10^3/uL (0.0-0.8) 12/15/19 05:29 Baso # (Auto) 0.0 10^3/uL (0.0-0.1) 12/15/19 05:29 Nucleated RBC % (auto) 0.7 % 12/15/19 05:29 Total Counted 100 (0-100) 12/13/19 03:20 Atypical Lymphs % 0.0 % (0-5) 12/13/19 03:20 Absolute Neutrophils 6.6 10^3/cmm (1.4-6.5) H 12/13/19 03:20 Segmented Neutrophils 77 % 12/13/19 03:20 Abs Segm Neuts (Man) 6.2 10/cmm (1.6-7.1) 12/13/19 03:20 Band Neutrophils 5.0 % 12/13/19 03:20 Abs Band Neuts (Man) 0.4 10^3/cmm (0.0-1.2) 12/13/19 03:20 Lymphocytes (Manual) 10 % 12/13/19 03:20 Monocytes (Manual) 7.0 % 12/13/19 03:20 Absolute Monocytes 0.6 10^3/cmm (0.1-0.6) 12/13/19 03:20 Eosinophils (Manual) 0 % 12/13/19 03:20 Absolute Eosinophils 0.0 10^3/cmm (0.0-0.7) 12/13/19 03:20 Basophils (Manual) 0.0 % 12/13/19 03:20 Absolute Basophils 0.0 10^3/cmm (0.0-0.2) 12/13/19 03:20 Metamyelocytes 1.0 % 12/13/19 03:20 Myelocytes 0.0 % 12/13/19 03:20 Nucleated RBCs 2.0 /100WBC (0-1) H 12/13/19 03:20 Nucleated RBCs # 0.1 /100WBC 12/15/19 05:29 Platelet Estimate Decreased (Normal) L 12/13/19 03:20 Anisocytosis Trace 12/13/19 03:20 Macrocytosis 1+ H 12/13/19 03:20 Heparin Require Pat 0.007 12/09/19 11:32 PT 17.90 SECONDS (12.1-14.9) H 12/12/19 03:33 INR 1.43 (0.8-1.2) H 12/12/19 03:33 APTT 55.9 SECONDS (23.9-36.7) H 12/12/19 14:15 Specimen Type Arterial 12/12/19 04:12 Sample Site Radial, left 12/12/19 04:12 ABG pH 7.48 (7.35-7.45) H 12/12/19 04:12 ABG pCO2 35.9 mmHg (35-45) 12/12/19 04:12 ABG pO2 95.4 mmHg (80.0-100.0) 12/12/19 04:12 ABG HCO3 26.5 mmol/L (22-26) H 12/12/19 04:12 ABG O2 Saturation 97.8 12/12/19 04:12 ABG Base Excess 3.0 mmol/L (-2.0-2.0) H 12/12/19 04:12 Diogo Test Pos 12/12/19 04:12 A-a O2 Gradient 13.9 mmHg (5-10) H 12/12/19 04:12 Hematocrit 37.2 % (37-47) 12/12/19 04:12 Hgb O2 Saturation 97.0 % (95-100) 12/12/19 04:12 Carboxyhemoglobin 0.5 %THgb (0.4-20.1) 12/12/19 04:12 Methemoglobin 0.3 % (0.4-1.5) L 12/12/19 04:12 Total Hemoglobin 12.1 g/dL (12-16) 12/12/19 04:12 Sodium 148.0 mmol/L (131-143) H 12/12/19 04:12 Potassium 3.5 mmol/L (3.5-5.0) 12/12/19 04:12 Glucose 179.0 mg/dL (70-115) H 12/12/19 04:12 Ionized Calcium 1.1 mmol/L (1.1-1.4) 12/12/19 04:12 O2 Delivery Device Vent 12/12/19 04:12 Mechanical Rate 12.0 12/10/19 04:31 FiO2 35.0 % 12/12/19 04:12 Tidal Volume 0.50 12/12/19 04:12 PEEP 5.0 cmH20 12/12/19 04:12 Operating Room Scheduler ID Harkr 12/12/19 04:12 Sodium 137 mmol/L (136-145) 12/15/19 05:29 Potassium 3.7 mmol/L (3.5-5.1) 12/15/19 05:29 Chloride 101 mmol/L (98-107) 12/15/19 05:29 Carbon Dioxide 26 mmol/L (22-29) 12/15/19 05:29 Anion Gap 13.7 (5-19) 12/15/19 05:29 BUN 36 mg/dL (8-23) H 12/15/19 05:29 Creatinine 0.9 mg/dL (0.5-0.9) 12/15/19 05:29 GFR Calculation Not Reportable 12/15/19 05:29 Glucose 165 mg/dL (65-115) H 12/15/19 05:29 POC Glucose 164 mg/dL (70-110) 12/15/19 06:09 Calculated Osmolality 296 mOsm/kg (285-295) H 12/15/19 05:29 Lactic Acid 3.0 mmol/L (0.5-2.2) H 12/08/19 16:15 Calcium 11.9 mg/dL (8.5-10.5) H 12/15/19 05:29 Phosphorus 4.0 mg/dL (2.5-4.5) 12/11/19 03:00 Magnesium 2.1 mg/dL (1.7-2.3) 12/11/19 03:00 Iron 24 ug/dL (37-145) L 12/09/19 04:15 TIBC 207 mcg/dl 12/09/19 04:15 % Saturation 11.5 % (20-50) L 12/09/19 04:15 Unsat Iron Binding 183 ug/dL (112-347) 12/09/19 04:15 Total Bilirubin 1.2 mg/dL (0.15-1.2) 12/15/19 05:29 AST 57 U/L (0-32) H 12/15/19 05:29 ALT 36 U/L (0-33) H 12/15/19 05:29 Alkaline Phosphatase 78 IU/L (35-105) 12/15/19 05:29 Troponin T Baseline 44 ng/L (0-10) H 12/08/19 09:17 Troponin T 120 Minute 99.32 ng/L (0-10) H 12/08/19 11:26 Delta Troponin T 55.32 ABS# (0-10) H* 12/08/19 11:26 Troponin T Hi Sens 6Hr 465.1 ng/L (0-10) H 12/08/19 15:12 Troponin T Hi Sens 6Hr Delta 421.1 ng/L (0-12) H* 12/08/19 15:12 NT-Pro-B Natriuret Pep 7251 pg/mL (0-450) H 12/08/19 09:17 Total Protein 10.1 g/dL (6.6-8.7) H 12/15/19 05:29 Albumin 2.5 g/dL (3.5-5.2) L 12/15/19 05:29 Globulin 7.6 g/dL (1.3-4.6) H 12/15/19 05:29 Triglycerides 49 mg/dL (0-150) 12/09/19 04:15 Cholesterol 36 mg/dL (0-200) 12/09/19 04:15 LDL Cholesterol, Calc 9 mg/dL (50-129) L 12/09/19 04:15 HDL Cholesterol 17 mg/dL (60-100) L 12/09/19 04:15 LDL/HDL Ratio 0.53 RATIO (0.00-3.22) 12/09/19 04:15 Cholesterol/HDL Ratio 2.12 mg/dL (0.0-4.40) 12/09/19 04:15 Procalcitonin 50.43 ng/mL (0-0.5) H 12/09/19 04:15 TSH 5.29 uIU/mL (0.27-4.20) H 12/08/19 09:17 Free T4 1.27 ng/dL (0.82-1.77) 12/09/19 04:15 Free T3 1.1 PG/ML (2.0-4.4) L 12/09/19 04:15 Urine Color Dark yellow (Yellow) 12/09/19 08:09 Urine Appearance Cloudy (CLEAR) 12/09/19 08:09 Urine pH 5 (5-7) 12/09/19 08:09 Ur Specific E[place] 1.025 (1.005-1.030) 12/09/19 08:09 Urine Protein Trace (Negative) 12/09/19 08:09 Urine Glucose (UA) Norm (Normal) 12/09/19 08:09 Urine Ketones 1+ (Negative) H 12/09/19 08:09 Urine Blood 2+ (Negative) H 12/09/19 08:09 Urine Nitrate Negative (Negative) 12/09/19 08:09 Urine Bilirubin Neg (Negative) 12/09/19 08:09 Urine Urobilinogen Norm mg/dL (Negative) 12/09/19 08:09 Ur Leukocyte Esterase 2+ (Negative) H 12/09/19 08:09 Urine RBC 5-10 /hpf (0-2) H 12/09/19 08:09 Urine WBC 10-15 /hpf (0-5) H 12/09/19 08:09 Ur Squamous Epith Cells 10-15 /hpf (0-5) H 12/09/19 08:09 Amorphous Sediment Not Reportable 12/09/19 08:09 Urine Bacteria 2+ /hpf (NONE) H 12/09/19 08:09 Coarse Granular Casts 10-15 /lpf H 12/09/19 08:09 Vancomycin Trough 13.1 ug/mL (12-11) 12/10/19 18:40 Heparin-induced Ab Negative (NEGATIVE) 12/09/19 11:32 UF Heparin Low Dose 1 0 % release 12/09/19 11:32 UF Heparin Low Dose 2 0 % release 12/09/19 11:32 UF Heparin High Dose 0 % release 12/09/19 11:32 FROILAN Unfract Heparin Negative (NEGATIVE) 12/09/19 11:32 Influenza Type A Ag Negative (Negative) 12/09/19 11:15 Influenza Type B Ag Negative (Negative) 12/09/19 11:15 SARS-CoV-2 Ag (Rapid) Negative (Negative) 12/09/19 09:49 Group A Strep Rapid Negative (Negative) 12/09/19 11:15 Blood Type B Negative 12/09/19 11:32 Rho(D) Type Negative 12/09/19 11:32 Antibody Screen Negative 12/09/19 11:32 Crossmatch See Detail 12/09/19 11:32 A&P Assessment and plan (1) NSTEMI (non-ST elevated myocardial infarction): Patient status post PCI of the LAD lesion. Currently seems to be stable. May continue on the aspirin and the Plavix. Status: Acute (2) Acute diastolic heart failure: Clinically she seems to be compensated. She does not appear to be fluid overloaded. May continue on the current medications. Status: Acute (3) Acute respiratory failure with hypoxia: Her respiratory status has improved, s/p extubation. Oxygenation is good Status: Acute (4) Multiple myeloma: Management as per the oncology service Status: Acute Qualifiers: Multiple myeloma remission status: not in remission Qualified Code(s): C90.00 - Multiple myeloma not having achieved remission Additional A&P Information The other problems are #1 anemia, stable #2 thrombocytopenia, stable #3 chronic renal insufficiency, no significant change #4 history of essential hypertension, currently normotensive #5 type 2 diabetes, blood sugar fairly under control #6 dyslipidemia #7 hypothyroidism, clinically euthyroid #8 hypokalemia, improved If the patient continues to remain stable, may be discharged home from a cardiac standpoint. He needs to be seen in the office by the nurse practitioner in a week. I may see her in the office in 3 weeks. Attestations Medical Necessity Statement*: Disposition as per the primary. Coding Level of Care Code Acute Batch Unloader for Kamila Fwd Exam Expanded Problem Focused Diagnoses NSTEMI (non-ST elevated myocardial infarction) I21.4 Acute diastolic heart failure I50.31 Acute respiratory failure with hypoxia J96.01 Multiple myeloma C90.00 Multiple myeloma remission status: not in remission Time Spent (min) 35
--- NOTE | 2019-12-15 10:01 | PC.SOCIAL ---
IMM Updated Updated pt on Pg 2 IMM. No questions voiced. Provided pt a copy. Signed, dated, & timed copy in chart.
[2019-12-15] MEDS: enoxaparin 40 mg/0.4 mL Syringe SUBCUT (10:07)
[2019-12-15] MEDS: ipratropium-albuterol 3 mL Neb INHALATION (10:18)
[2019-12-15] MEDS: budesonide 0.5 mg/2 mL Neb INHALATION (10:18)
[2019-12-15 10:54] LABS: Glucose Point of Care 174 mg/dL (70-110)
--- NOTE | 2019-12-15 11:24 | P.DS_ITS ---
Discharge Providers Date of Admission: 12/08/19 11:17 Date of Discharge: December 15, 2019 Attending Provider at Admission: Gonzalez Howard MD Attending Provider at Discharge: Ayaan Flores MD Consults: Cardiology Dr. Parker Pulmonology/critical care medicine: Dr. Johnson Primary Care Provider: Saul Nieto Jr, MD Diagnoses at Discharge Discharge Diagnosis (1) NSTEMI (non-ST elevated myocardial infarction): Status: Acute (2) Acute diastolic heart failure: Status: Acute Problem details: Compensated currently (3) Acute respiratory failure with hypoxia: Status: Acute (4) Multiple myeloma: Status: Acute Qualifiers: Multiple myeloma remission status: not in remission Qualified Code(s): C90.00 - Multiple myeloma not having achieved remission (5) Physical deconditioning: Status: Acute (6) Stented coronary artery: Status: Acute (7) Hypothyroidism: Status: Acute (8) Multiple myeloma: Status: Acute (9) Hypercalcemia: Status: Acute (10) Heart failure: Status: Acute Qualifiers: Heart failure chronicity: acute on chronic Heart failure type: diastolic Qualified Code(s): I50.33 - Acute on chronic diastolic (congestive) heart failure Reason for Visit Reason for Visit: RESP DISTRESS Hospital Course Discharge Summary: [place] 84-year-old female with IgG kappa myeloma on chemotherapy, hypertension, type 2 diabetes, HFpef ,peripheral neuropathy, abnormal cardiac stress test in September 2019, degenerative arthritis who presents to the emergency room with chief complaints of worsening shortness of breath, and nonproductive cough, since yesterday, daughter was able by the bedside, and history was provided by her as well as the patient. She was also complaining of, lethargy, generalized weakness, subjective fever, cold. She was admitted on December 07 for acute hypoxic respiratory failure sepsis. She was also found to have non-ST relation NE. On admission patient was in acute kidney injury which is most likely secondary to sepsis and cardiorenal syndrome. She was started on broad-spectrum antibiotics and intubated on December 07 at around 7 PM because of worsening of hypoxic respiratory failure. She was aggressively diuresed while monitoring her kidney function. On admission patient also had hypercalcemia most likely secondary to worsening of multiple myeloma which was treated with a dose of pamidronate and IV dexamethasone. Eventually she responded well to the treatment and her ventilator requirements continue to decrease. Once she was stabilized medically and close to extubation she underwent left heart catheterization with left and right coronary angiogram on December 11. She was found to have a high-grade lesion in the proximal to mid LAD. Minimal disease in the other vessels. Based on the angiogram findings, it was opted to go ahead with the PCI of the LAD lesion. Post left heart cath patient was extubated on December 11 and since then she has continued to improve. During hospitalization she also developed thrombocytopenia which was similar to her previous hospitalization in March 2019. Heparin-induced thrombocytopenia was ruled out with negative antibodies. Thrombocytopenia is most likely secondary to sepsis. Eventually her thrombocytopenia resolved. Blood work also showed elevated TSH with low free T3 levels because of which her levothyroxine dose was adjusted. She was eventually moved out to the medical floor where she was monitored off antibiotics for around 24 to 36 hours. Patient continues to do well from medical standpoint. Due to prolonged hospitalization and baseline poor functionality patient is severely generalized deconditioned. Patient has been regularly seen by physical therapy and continues to improve slowly. Safe discharge planning were discussed with patient's family and patient herself and they decided for patient to go to home with home health for further rehabitation. Patient has been discharged hemodynamically stable condition with advised to follow-up with a primary care provider within next 4 to 7 days and with cardiology within next 2 weeks. She is advised to repeat CMP in 1 week and thyroid panel including free T3 and free T4 in 1 month. She is also advised to follow-up with Dr. Muñoz in 1 week for further treatment of hypercalcemia. Physical Exam Narrative: EXAM NARRATIVE: General: AOx3, no acute distress, pleasant, weak HEENT: PERRLA, pupils bilaterally equal and reactive Chest: Bronchial breath sounds with coarse crepitations present in right middle zone, fine crackles in lower zones improving, equal good air entry bilaterally CVS: S1-S2 regular, no murmurs, no tachycardia, no gallops, no rubs Abdomen: Soft, nontender, no organomegaly, bowel sounds present Neuro: No focal deficits, no facial deformity, AO x3, power 5/5 in all limbs Urinary Catheter Management^: Johnson: Cath Placed During This Visit: yes, but has since been removed by the nurse Reason for Continuing Indwelling Catheter: Decision to DC Catheter Urinary Catheter Date of Insertion: 12/08/19 Urinary Catheter Time of Insertion: 10:00 Date Urinary Catheter Removed: 12/13/19 Time Urinary Catheter Discontinued: 15:36 Discharge Data Data Completed and Pending: Completed Studies During Hospitalization Category Date Time Status CT chest wo con 7 1250 Routine Cat Scan 12/08/19 14:55 Completed XR chest 1V bl[place] ble 09639 Q48H Exams 12/11/19 06:00 Completed XR chest 1V blanca ble [id number] Q48H Exams 12/13/19 06:00 Completed XR chest 1V [place] ble [id number] Q48H Exams 12/15/19 06:00 Completed XR chest 1V blanca ble [id number] Routine Exams 12/10/19 06:00 Completed XR chest 1V [place] ble [id number] Routine Exams 12/11/19 14:00 Completed XR chest 1V blanca ble [id number] Routine Exams 12/12/19 17:45 Completed XR chest 1V bl[place] ble [id number] Stat Exams 12/08/19 19:05 Completed XR chest 1V blanca ble [id number] Urgent Exams 12/08/19 09:09 Completed CV echo complete* [id number] Routine Ultrasound 12/09/19 06:00 Completed Pending at discharge Category Date Time Status NECK SKEWER request for service Routin e Exams 12/12/19 06:34 Taken Sputum Culture an d Gram Stain Routi ne Lab 12/08/19 19:15 Uncollected Streptococcus Cul ture Group A Stat Lab 12/09/19 11:15 Received Labs from last 24 hours 12/15/19 12/15/19 12/15/19 10:50 06:09 05:29 WBC RBC Hgb Hct MCV MCH MCHC RDW Plt Count MPV Neut % (Auto) Lymph % (Auto) [place] % (Auto) Eos % (Auto) Baso % (Auto) Neut # (Auto) Lymph # (Auto) [place] # (Auto) Eos # (Auto) Baso # (Auto) Nucleated RBC % (a uto) Nucleated RBCs # Hematocrit Sodium 137 Potassium 3.7 Chloride 101 Carbon Dioxide 26 Anion Gap 13.7 BUN 36 H Creatinine 0.9 GFR Calculation Not Reportable Glucose 165 H POC Glucose 174 164 Calculated Osmolal ity 296 H Calcium 11.9 H Total Bilirubin 1.2 AST 57 H ALT 36 H Alkaline Phosphata se 78 Total Protein 10.1 H Albumin 2.5 L Globulin 7.6 H 12/15/19 12/14/19 12/14/19 05:29 20:10 16:04 WBC 12.6 H RBC 2.85 L Hgb 8.9 L Hct 29.3 L MCV 102.8 H MCH 31.2 MCHC 30.4 RDW 19.2 H Plt Count 93 L MPV 11.4 H Neut % (Auto) 87.1 Lymph % (Auto) 6.3 [place] % (Auto) 6.3 Eos % (Auto) 0.1 Baso % (Auto) 0.2 Neut # (Auto) 10.17 H Lymph # (Auto) 0.8 [place] # (Auto) 0.8 Eos # (Auto) 0.0 Baso # (Auto) 0.0 Nucleated RBC % (a uto) 0.7 Nucleated RBCs # 0.1 Hematocrit Sodium Potassium Chloride Carbon Dioxide Anion Gap BUN Creatinine GFR Calculation Glucose POC Glucose 247 227 Calculated Osmolal ity Calcium Total Bilirubin AST ALT Alkaline Phosphata se Total Protein Albumin Globulin 12/10/19 04:31 WBC RBC Hgb Hct MCV MCH MCHC RDW Plt Count MPV Neut % (Auto) Lymph % (Auto) [place] % (Auto) Eos % (Auto) Baso % (Auto) Neut # (Auto) Lymph # (Auto) [place] # (Auto) Eos # (Auto) Baso # (Auto) Nucleated RBC % (a uto) Nucleated RBCs # Hematocrit Not Reportable Sodium Potassium Chloride Carbon Dioxide Anion Gap BUN Creatinine GFR Calculation Glucose POC Glucose Calculated Osmolal ity Calcium Total Bilirubin AST ALT Alkaline Phosphata se Total Protein Albumin Globulin Addt'l Data from Hospital Stay: Echocardiogram done on December 09, 2019: LV systolic function is mildly reduced with EF of 40 to 45%. Above-mentioned wall motion abnormalities are seen. Grade 2 diastolic dysfunction with elevated filling pressures. Trace aortic regurgitation is present. Compared to prior study from 05/17/2019, mild reduction in LV systolic function is noted. Elevated filling pressures now present. Vitals: Last Vital Signs Temp 98.0 F 12/15/19 07:28 Pulse 76 12/15/19 10:20 Resp 20 H 12/15/19 10:19 BP 158/70 12/15/19 07:28 Pulse Ox 90 12/15/19 10:24 Discharge Plan Discharge Patient Disposition: Home Health Service Condition: Stable Prescriptions: New atorvastatin 40 mg Tablet 40 mg PO DAILY Qty: 30 RF: 0 isosorbide mononitrate 20 mg Tablet 15 mg PO DAILY Qty: 30 RF: 0 clopidogrel 75 mg Tablet 75 mg PO DAILY Qty: 30 RF: 0 Levoxyl 100 mcg Tablet 200 mcg PO DAILY Qty: 30 RF: 0 Medrol ([place]) 4 mg tablets,dose pack See Rx Instructions .ROUTE .COMPLEX Qty: 21 RF: 0 ipratropium-albuterol 20-100 mcg/actuation mist 1 puff INHALATION Q6H 15 Days Qty: 40 RF: 0 Flovent HFA 44 mcg/actuation HFA aerosol inhaler 1 inh INHALATION BID Qty: 10.6 RF: 0 Continued acetaminophen [Tylenol 8 Hour] 650 mg tablet extended release 650 mg PO Q12H RF: 0 Complete Multivitamin Tablet 1 tab PO DAILY RF: 0 sennosides-docusate sodium [Senna Plus] 8.6-50 mg tablet 1 tab-cap PO DAILY RF: 0 pantoprazole 40 mg tablet,delayed release (DR/EC) 40 mg PO DAILY RF: 0 aspirin 81 mg Tablet,Delayed Release (Dr/Ec) 81 mg PO DAILY Qty: 30 RF: 0 amlodipine 10 mg Tablet 10 mg PO DAILY Qty: 30 RF: 0 Changed furosemide 40 mg Tablet 40 mg PO BID Qty: 0 RF: 0 metoprolol tartrate 25 mg tablet 50 mg PO BID Qty: 180 RF: 3 Discontinued isosorbide mononitrate 60 mg tablet extended release 24 hr 30 mg PO DAILY 30 Days Qty: 30 RF: 5 atorvastatin 80 mg tablet 80 mg PO DAILY Qty: 90 RF: 3 levothyroxine [Euthyrox] 112 mcg Tablet 112 mcg PO DAILY RF: 0 Discharge Orders: Discharge Order (Routine); Ordered 12/15/19 Ordered By: Ayaan Flores Other Ambulatory Orders: DME: Oxygen (Order) Location: None Selected Ordered By: Ayaan Flores Referrals: [facility] [Outside] [facility] [place]Outside] Kelly Parker MD [Physician] - 2 weeks (Please follow-up with your return agent airport in 2 weeks. If you have not heard from them by Monday afternoon, please call [phone]. Thank You.) Kris Muñoz MD [Hospitalist] - 4-7 days (Please follow-up with your oncologist in 4-7 days. If you have not heard from them by Monday afternoon, please call [phone]. Thank You.) Saul Nieto Jr, MD [Primary Care Provider] - 4-7 days (Please follow-up with your primary doctor in 40-7 days. If you have not heard from them by Monday afternoon, please call [phone]. Thank You.) Discharge Diet: Cardiac Discharge Activity: Resume usual activity and Increase activity as tolerated Patient Instructions: Corticosteroids (By mouth), Levothyroxine (By mouth), Isosorbide Mononitrate (By mouth), Fluticasone (By breathing), Atorvastatin (By mouth), Clopidogrel (By mouth), Left Heart Catheterization (DC), Coronary Angioplasty (DC), Post Angiogram Home Care Instructions, Post Heart Attack Stoplight Activity Restrictions/Additional Instructions: Please follow-up with your primary care provider within the next 1 week. Please follow-up with Dr. Muñoz within next 1 week. Please follow-up with cardiology within next 2 weeks. Please check CMP including calcium and follow-up with both Dr. Muñoz your primary care provider. Please check TSH, free T3, free T4 in 1 month. Discharge Attestations Time Spent in Discharge Care*: greater than 30 min Specific Discharge Activities: Specific discharge activities: educating patient, educating and/or supporting family/caregiver, discussing with pcp/other providers, discussing with medical case worker/social workers/dc planners, documenting/other paperwork and evaluating patient/reviewing data Status at Discharge: Cognitive status at discharge: cognitively intact , Behavioral status at discharge: cooperative , Functional status at discharge: uses cane/walker Overall status at discharge: patient is progressing back to baseline Quality Metrics Clinical Quality Measures During this hospital stay, did patient experience: None Coding Level of Care Code Acute [place]er for Chg Fwd Diagnoses NSTEMI (non-ST elevated myocardial infarction) I21.4 Acute diastolic heart failure I50.31 Acute respiratory failure with hypoxia J96.01 Multiple myeloma C90.00 Multiple myeloma remission status: not in remission Physical deconditioning R53.81 Stented coronary artery Z95.5 Hypothyroidism E03.9 Multiple myeloma C90.00 Hypercalcemia E83.52 Heart failure I50.33 Heart failure chronicity: acute on chronic Heart failure type: diastolic
--- NOTE | 2019-12-15 15:23 | PC.NURSE ---
Discharge to home with home health services Dgtr at bedside. Discussion on pt's discharge orders. New meds dosing, timing, possible s/e. Discharge papers provided to pt.
== END 2019-12-15 15:23 | disposition home health service (06) | DRG 853 ==
LOC: ER 11:31 → MEDSURG 13:32 → ICU 15:51 → CSU 12-14 12:46
PROVIDERS: Emergency Medicine; Internal Medicine; Internal Medicine Cardiovascular Disease; Admitting Provider Internal Medicine; PCP Family Medicine; Visit Provider Student in an Organized Health Care Education/Training Program
PROC: 027034Z Dilation of Coronary Artery, One Artery with Drug-eluting Intraluminal Device, Percutaneous Approach (ICD-10-PCS; principal; 2019-12-12 07:00)
DX: A41.9 Sepsis, unspecified organism (principal); I21.4 Non-ST elevation (NSTEMI) myocardial infarction; J18.9 Pneumonia, unspecified organism; I50.33 Acute on chronic diastolic (congestive) heart failure; J96.01 Acute respiratory failure with hypoxia; C90.00 Multiple myeloma not having achieved remission; I13.0 Hypertensive heart and chronic kidney disease with heart failure and stage 1 through stage 4 chronic kidney disease, or unspecified chronic kidney disease; E87.2 Acidosis; N17.9 Acute kidney failure, unspecified; R65.20 Severe sepsis without septic shock; N18.9 Chronic kidney disease, unspecified; E11.22 Type 2 diabetes mellitus with diabetic chronic kidney disease; E11.42 Type 2 diabetes mellitus with diabetic polyneuropathy; M19.90 Unspecified osteoarthritis, unspecified site; Z87.442 Personal history of urinary calculi; I25.2 Old myocardial infarction; Z90.10 Acquired absence of unspecified breast and nipple; Z96.641 Presence of right artificial hip joint; E83.52 Hypercalcemia; E89.0 Postprocedural hypothyroidism; Z92.21 Personal history of antineoplastic chemotherapy; D64.9 Anemia, unspecified; D69.6 Thrombocytopenia, unspecified; I25.10 Atherosclerotic heart disease of native coronary artery without angina pectoris; Z79.82 Long term (current) use of aspirin
CPT/HCPCS: 12345; 36415; 36416; 36430; 36600; 51702; 71045; 71250; 80048; 80051; 80053; 80061; 80202; 81001; 82803; 82805; 82810; 82962; 83540; 83550; 83605; 83735; 83880; 83986; 84100; 84145; 84439; 84443; 84481; 84484; 85007; 85014; 85018; 85025; 85347; 85610; 85730; 86403; 86850; 86900; 86920; 87040; 87070; 87081; 87086; 87205; 87426; 87449; 87641; 87804; 87880; 90471; 90686; 93005; 93306; 93452; 94002; 94003; 94640; 94660; 94799; 96372; 96375; 97110; 97161; 97165; 97530; 99284; 99291; A4570; C1725; C1769; C1874; C1887; C1894; C9113; C9600; J0330; J0456; J0583; J0630; J0696; J0743; J1100; J1644; J1650; J1652; J1815; J1940; J2250; J2430; J3010; J3246; J3370; J3475; J3480; J3490; J7030; J7040; J7050; J7512; J7611; J7626; P9016; Q0163; Q9967

== ENCOUNTER 2019-12-17 13:25 | Outpatient (CLI) | payer MEDICARE, SELFPAY ==
[2019-12-17 14:29] LABS: Basophils % 0.2 %; Eosinophils # 0.1 10^3/uL (0.0-0.8); Eosinophils % 0.5 %; Hematocrit 31.4 % (37.0-47.0); Hemoglobin 9.8 g/dL (11.5-15.3); Lymphocytes # 1.6 10^3/uL (0.8-4.8); Lymphocytes % 12.2 %; Mean Corpuscular HGB Conc 31.2 g/dL (30.0-36.0); Mean Corpuscular Hemoglobin 31.2 pg (28.0-34.0); Mean Platelet Volume 11.4 fL (7.4-10.4); Monocytes % 7.5 %; Neutrophils # 9.58 10^3/uL (1.8-7.7); Neutrophils % 74.6 %; Nucleated Red Blood Cells # 0.1 /100WBC; Nucleated Red Blood Cells % 0.5 %; Platelet Count 122 10^3/cmm (130-400); Red Blood Count 3.14 10^6/uL (4.1-5.3); Red Cell Distribution Width 17.8 % (12.1-15.1); White Blood Count 12.8 10^3/uL (4.0-10.0)
[2019-12-17 14:59] LABS: Alanine Aminotransferase 39 U/L (0-33); Albumin Level 2.4 g/dL (3.5-5.2); Alkaline Phosphatase 94 IU/L (35-105); Anion Gap 13.5 (5-19); Aspartate Amino Transferase 57 U/L (0-32); Blood Urea Nitrogen 31 mg/dL (8-23); Calcium 11.6 mg/dL (8.5-10.5); Carbon Dioxide 25 mmol/L (22-29); Chloride 92 mmol/L (98-107); Globulin 7.7 g/dL (1.3-4.6); Glucose 140 mg/dL (65-115); Osmolality Calculated 273 mOsm/kg (285-295); Potassium 3.5 mmol/L (3.5-5.1); Sodium 127 mmol/L (136-145); T3 Free 1.4 PG/ML (2.0-4.4); Thyroid Stimulating Hormone 0.53 uIU/mL (0.27-4.20); Total Bilirubin 1.2 mg/dL (0.15-1.2); Total Protein 10.1 g/dL (6.6-8.7)
[2019-12-17 15:19] LABS: Slide Review Slide Review Perform
--- NOTE | 2019-12-22 15:48 | P.DS_ITS ---
Discharge Providers Date of Admission: 12/18/2019 Date of Discharge: December 22, 2019 Attending Provider at Discharge: Kirs Muñoz MD Primary Care Provider: Saul Nieto Jr, MD Diagnoses at Discharge Discharge Diagnosis (1) Pneumonia: Status: Resolved Qualifiers: Laterality: right Lung location: lower lobe of lung Pneumonia type: due to unspecified organism Qualified Code(s): J18.9 - Pneumonia, unspecified organism (2) Pleural effusion: Status: Chronic (3) Stented coronary artery: Status: Chronic (4) Multiple myeloma: Status: Chronic (5) Sleep apnea: Status: Acute Reason for Visit Reason for Visit: Anemia; Multiple Myeloma; Rental function monitori Hospital Course Hospital Course: 84-year-old female with IgG kappa myeloma on chemotherapy, hypertension, type 2 diabetes,hypothyroidism, CAD S/P stent in LAD ( 11/2019) HFrEf ,peripheral neuropathy degenerative arthritis,was admitted with c/o acute onset of SOB .Upon arrival in the ER CTA chest was done with contrast and P.E was ruled out. CTA chest showed moderate sized right pleural effusion and tiny left pleural effusion.Bibasilar atelectasis more pronounced on the right.She was managed for worsening SOB 2/2 to PNA/chronic rt pleural effusion likely 2/2 to heart failure.She responded well to broad spectrum ABX.Her cultures remained negative.last xray chest done on 01/19 :Stable small right pleural effusion. Increased small left pleural effusion.Persistent pulmonary vascular congestion.During this hospital stay she also received 1 u PRBC transfusion as her Hb on day 2 showed slight drop to 8.4.Her hemoglobin was stable on Dc. Lasix was continued and her kidney function also responded well to I.V Diueresis.Rgarding the rt pleural effusion the case was extensively discussed with radiologist for possible thoracentesis.It was concluded that it is a high risk thoracentesis given the patient on Aspirin & Plavix and with h/o recent PCI to LAD.It was also discussed with her daughter regarding the risk and benefits and was agreed upon that for now we will continue with I.V lasix.A repeat xray chest will be done in 1 week and she will follow with her PCP regarding the interval devlopment in effusion. She was also set up for outpatient sleep study as she was desaturating while slepping.Pulmonary medicine appointment was also set up for effusion follow up.Possibility of rt pleural effusion being a malignant effusion was also discussed with the family.She was discharged in stable condition to home. Physical Exam Const: COMMON NORMALS: patient oriented x3 HENMT: COMMON NORMALS: normocephalic, atraumatic, hearing grossly normal bilaterally and external ears normal HEAD & SCALP: normocephalic and atraumatic EXTERNAL EAR: Yes external ears normal Eye: COMMON NORMALS: no scleral icterus GENERAL EYE: appearance normal, both eyes and all related structures Chest: COMMONS NORMALS: normal inspection of the chest and normal palpation of entire chest wall CHEST: Yes Symmetrical chest wall rise Resp: COMMON NORMALS: normal respiratory effort, No retractions, No use of accessory muscles and clear to auscultation bilaterally EFFORT & INSPECTION: Yes symmetric chest movement AUSCULTATION: clear to auscultation bilaterally Cardio: COMMON NORMALS: regular rate, regular rhythm, S1 normal heart sound present, S2 normal heart sound present, No gallops present (Cardio), No murmurs present (Cardio), No rub (Cardio) and Peripheral pulses 2+ throughout RATE: regular rate RHYTHM: regular rhythm HEART SOUNDS: S1 normal heart sound present and S2 normal heart sound present PERIPHERAL PULSES: Peripheral pulses 2+ throughout GI: COMMON NORMALS: Normal to inspection, nondistended, normoactive bowel sounds present, Soft to palpation, non-tender, No hepatosplenomegaly present and no masses AUSCULTATION: Yes normoactive bowel sounds PALPATION: Yes Soft to palpation and Yes No hepatosplenomegaly present RECTAL EXAM: deferred Extremity: COMMON NORMALS: no clubbing, cyanosis or edema and no pedal edema Neuro: COMMON NORMALS: patient oriented x3 Discharge Plan Discharge Patient Disposition: Home Prescriptions: No Action acetaminophen [Tylenol 8 Hour] 650 mg tablet extended release 650 mg PO Q12H RF: 0 Complete Multivitamin Tablet 1 tab PO DAILY RF: 0 sennosides-docusate sodium [Senna Plus] 8.6-50 mg tablet 1 tab-cap PO DAILY RF: 0 pantoprazole 40 mg tablet,delayed release (DR/EC) 40 mg PO DAILY RF: 0 aspirin 81 mg Tablet,Delayed Release (Dr/Ec) 81 mg PO DAILY Qty: 30 RF: 0 amlodipine 10 mg Tablet 10 mg PO DAILY Qty: 30 RF: 0 atorvastatin 40 mg Tablet 40 mg PO DAILY Qty: 30 RF: 0 isosorbide mononitrate 20 mg Tablet 15 mg PO DAILY Qty: 30 RF: 0 clopidogrel 75 mg Tablet 75 mg PO DAILY Qty: 30 RF: 0 methylprednisolone [Medrol (Booker)] 4 mg tablets,dose pack See Rx Instructions .ROUTE .COMPLEX Qty: 21 RF: 0 ipratropium-albuterol 20-100 mcg/actuation mist 1 puff INHALATION Q6H 15 Days Qty: 40 RF: 0 Flovent HFA 44 mcg/actuation HFA aerosol inhaler 1 inh INHALATION BID Qty: 10.6 RF: 0 furosemide 40 mg Tablet 40 mg PO BID Qty: 0 RF: 0 metoprolol tartrate 25 mg tablet 50 mg PO BID Qty: 180 RF: 3 levothyroxine 125 mcg capsule 125 mcg PO DAILY Qty: 30 RF: 0 levofloxacin 500 mg tablet 500 mg PO DAILY 7 Days RF: 0 Discharge Date/Time: 12/17/19 13:26 Discharge Attestations Time Spent in Discharge Care*: greater than 30 min Specific Discharge Activities: Specific discharge activities: educating patient, educating and/or supporting family/caregiver, discussing with pcp/other providers, discussing with review coordinator/social workers/dc planners, documenting/other paperwork and evaluating patient/reviewing data Status at Discharge: Cognitive status at discharge: cognitively intact , Behavioral status at discharge: cooperative , Functional status at discharge: independent ambulation Overall status at discharge: patient is back to baseline Quality Metrics Clinical Quality Measures During this hospital stay, did patient experience: None Coding Level of Care Code Acute Assistant Media [employer]er for [facility] Fwd Diagnoses Pneumonia J18.9 Laterality: right Lung location: lower lobe of lung Pneumonia type: due to unspecified organism Pleural effusion J90 Stented coronary artery Z95.5 Multiple myeloma C90.00 Sleep apnea G47.30
== END 2019-12-17 13:26 | disposition home or self-care (01) ==
LOC: ONCMED 16:29
PROVIDERS: PCP Family Medicine; Visit Provider Internal Medicine Medical Oncology
DX: C90.00 Multiple myeloma not having achieved remission (principal); E03.9 Hypothyroidism, unspecified; E83.52 Hypercalcemia
CPT/HCPCS: 12345; 80053; 84439; 84443; 84481; 85025

== ENCOUNTER 2019-12-18 13:42 | Inpatient (IN) | payer MEDICARE, SELFPAY ==
[2019-12-18] VITALS (8 sets, daily range): BP systolic 119–154; BP diastolic 49–75; PULSE 72–80; RESP 15–26; TEMP 36.5–37; O2SAT 96–98; BMI 27.7
--- NOTE | 2019-12-18 14:34 | XRR_ITS ---
PROCEDURE INFORMATION: Exam: XR Chest, 1 View Exam date and time: 12/18/2019 2:51 PM Age: 84 years old Clinical indication: Shortness of breath; Additional info: SOB TECHNIQUE: Imaging protocol: XR of the chest Views: 1 view. COMPARISON: CR XR chest 1V portable [id number] 12/15/2019 6:28 AM FINDINGS: Lungs: Focal patchy infiltrates or atelectasis both lung bases, slightly increased. Pleural space: Small bilateral pleural effusions, unchanged. Heart/Mediastinum: Mild cardiomegaly, unchanged. Vasculature: Mildly tortuous calcified aorta, chronic. Bones/joints: Unremarkable. XR/XR chest 1V portable [id number] IMPRESSION: 1.) Focal bibasilar infiltrates or atelectasis appear mildly increased. 2.) Mild cardiomegaly and small pleural effusions, unchanged.
--- NOTE | 2019-12-18 14:39 | ED_ITS ---
HPI - SOB/Dyspnea General: Chief Complaint: Shortness of Breath/Dyspnea Stated Complaint: SOB Time Seen by Provider: 12/18/19 14:05 Source: patient, family and EMS Mode of arrival: EMS Limitations: no limitations History of Present Illness: HPI Narrative: Patient is an 84-year-old female patient who was recently admitted and discharged from this facility. She was admitted from 12/08/2019 to 12/15/2019. In the hospital she was managed as a case of a non-STEMI, acute diastolic heart failure, acute respiratory failure. She was intubated for a few days. She had stents placed in the hospital. The patient states that she has been feeling short of breath since discharge but it has been gradually worsening. Today she had an episode where she had significant difficulty breathing. She denies any fever, occasional cough. She denies any chest pain. MD elicited complaint: shortness of breath Pertinent past history: congestive heart failure and pneumonia Context: recent illness Timing: constant Severity: moderate Exacerbating factors: nothing Relieving factors: nothing Associated symptoms: Deny abdominal pain, fever(s), nausea, palpitations, polydipsia, polyuria or vomiting Review of Systems General: Reports: 10 or more systems reviewed and unremarkable except in HPI and below Const: Denies: fever(s), chills or body aches Eyes: Denies: change in vision or blurry vision ENMT: Denies: throat pain, enlarged tonsils, odynophagia, hoarseness, mouth pain or swelling of lips/tongue Card: Denies: palpitations, irregular heart rhythm, edema or swelling of feet/ankles Resp: Reports: dyspnea; Denies: productive cough or non-productive cough GI: Denies: abdominal pain, nausea or vomiting : Denies: flank pain, difficulty voiding, dysuria, urinary frequency, urinary urgency or urinary hesitancy Musc: Denies: neck pain, back pain or extremity swelling Skin/Breast: Denies: rash, pruritus or erythema Neuro: Denies: headache(s), numbness in extremities or weakness in extremities Endo: Denies: polyuria, polydipsia or tired all the time PFSH ED PFSH: Medical History Abnormal cardiovascular stress test Acute diastolic heart failure Compensated currently Arthritis Benign essential hypertension with target blood pressure below 140/90 Improved Diabetes Dyslipidemia History of nephrolithiasis Hypertension Peripheral neuropathy Recent non-ST elevation myocardial infarction Surgical History H/O cystoscopy H/O foot surgery H/O lithotripsy H/O: hysterectomy History of cholecystectomy History of mastectomy, subtotal History of right hip replacement History of thyroidectomy Status post breast reduction Family History Mother Congestive heart failure Cancer breast and kidney Denies family history of Anesthesia complication Bleeding disorder Social History Smoking and tobacco status: never smoked Alcohol intake: never Household members: spouse Marital status: Current occupational status: retired History of recent travel: Yes Details: [place] Out of state: No Physical Exam Const: COMMON NORMALS: no acute distress, average body habitus, patient oriented x3, no limitations, healthy appearing, alert and well nourished HENMT: COMMON NORMALS: normocephalic, atraumatic and moist oral mucous membranes HEAD & SCALP: normocephalic and atraumatic Eye: COMMON NORMALS: Equal, round and reactive pupils present, EOMs intact bilaterally, conjunctivae normal and no scleral icterus CONJUNCTIVA: Yes conjunctivae normal PUPIL: Yes Equal, round and reactive pupils present Neck/C-Spine: COMMON NORMALS: full ROM, supple, no meningeal signs, no JVD and No carotid bruits Resp: COMMON NORMALS: normal respiratory effort, No retractions, No use of accessory muscles and percussion normal AUSCULTATION: wheezes expiratory wheezes PERCUSSION: percussion normal Cardio: COMMON NORMALS: no JVD, regular rate, regular rhythm, S1 normal heart sound present, S2 normal heart sound present, No gallops present (Cardio), No clicks present (Cardio), No murmurs present (Cardio), No rub (Cardio) and Peripheral pulses 2+ throughout RATE: regular rate RHYTHM: regular rhythm HEART SOUNDS: S1 normal heart sound present and S2 normal heart sound present PERIPHERAL PULSES: Peripheral pulses 2+ throughout GI: COMMON NORMALS: Normal to inspection, nondistended, normoactive bowel sounds present, Soft to palpation, non-tender, No hepatosplenomegaly present, no masses and no bruits PALPATION: Yes Soft to palpation and Yes No hepatosplenomegaly present Extremity: COMMON NORMALS: normal to inspection, full ROM, capillary refill normal, no calf tenderness and no pedal edema Neuro: COMMON NORMALS: patient oriented x3 SENSORIUM/ORIENTATION: Yes alert MENINGEAL SIGNS: Yes no meningeal signs Skin: COMMON NORMALS: no rashes or lesions noted, no wounds, turgor normal, no jaundice, no petechiae and no mottling GENERAL SKIN EXAM: no rashes or lesions noted and turgor normal Course Reevaluation(s): Reevaluation #1: Discussed the patient's lab results with her and her daughter. She has moderate-sized pleural effusion, likely right-sided pneumonia, sepsis and significantly elevated troponin. I believe she is too sick to be discharged home and will probably benefit from hospital admission. They voiced understanding and are in agreement with the plan Time: 17:20 Consultations: Consultation #1: Discussed with Dr. Howard, hospitalist and he kindly accepted the patient to his service. Time: 17:30 Vital Signs: Vital signs: Vital Signs Temperature 98.1 F 12/18/19 18:57 Pulse Rate 72 12/18/19 18:57 Respiratory Rate 15 12/18/19 18:57 Blood Pressure 154/75 12/18/19 18:57 Pulse Oximetry 98 12/18/19 18:57 MDM - SOB/Dyspnea MDM Narrative: Medical decision making narrative: 84-year-old female patient was recently discharged from this hospital following a non-STEMI and acute respiratory failure. She has been having worsening shortness of breath since discharge and returned today because he got significantly worse. Evaluation here shows she has significantly elevated troponin which may be residual from her recent non-STEMI all could be a restenosis of stents. She also has a significant pleural effusion and likely pneumonia. She is also unlikely septic. She is admitted for further evaluation Medical Records: Attestation: I reviewed the patient's medical records. Lab Data: Attestation: I reviewed the patient's lab results. Labs: Lab Results 12/18/19 12/18/19 12/18/19 Range/Units 14:58 14:58 14:58 WBC 11.2 H (4.0-10.0) 10^3/ uL RBC 3.19 L (4.1-5.3) 10^6/u L Hgb 10.0 L (11.5-15.3) g/dL Hct 31.7 L (37.0-47.0) % MCV 99.4 H (81-99) fL MCH 31.3 (28.0-34.0) pg MCHC 31.5 (30.0-36.0) g/dL RDW 17.8 H (12.1-15.1) % Plt Count 122 L (130-400) 10^3/c mm MPV 11.4 H (7.4-10.4) fL Neut % (Auto) 69.5 % Lymph % (Auto) 14.7 % [place] % (Auto) 11.2 % Eos % (Auto) 0.8 % Baso % (Auto) 0.1 % Neut # (Auto) 7.77 H (1.8-7.7) 10^3/u L Lymph # (Auto) 1.6 (0.8-4.8) 10^3/u L [place] # (Auto) 1.3 H (0.2-0.9) 10^3/u L Eos # (Auto) 0.1 (0.0-0.8) 10^3/u L Baso # (Auto) 0.0 (0.0-0.1) 10^3/u L Nucleated RBC % (a uto) 0.2 % Nucleated RBCs # 0.0 /100WBC D-Dimer 2.68 H (0-0.59) ug/mIFE U Sodium 131 L (136-145) mmol/L Potassium 3.3 L (3.5-5.1) mmol/L Chloride 92 L (98-107) mmol/L Carbon Dioxide 26 (22-29) mmol/L Anion Gap 16.3 (5-19) BUN 33 H (8-23) mg/dL Creatinine 1.0 H (0.5-0.9) mg/dL GFR Calculation Not Reportable Glucose 131 H (65-115) mg/dL Calculated Osmolal ity 281 L (285-295) mOsm/k g Lactic Acid (0.5-2.2) mmol/L Calcium 11.3 H (8.5-10.5) mg/dL Total Bilirubin 1.1 (0.15-1.2) mg/dL AST 55 H (0-32) U/L ALT 39 H (0-33) U/L Alkaline Phosphata se 96 (35-105) IU/L Creatine Kinase 92 (26-192) U/L CK-MB (CK-2) 1.2 (0-5.34) ng/mL CK-MB (CK-2) Rel I ndex (0.0-10.4) % Troponin T Baselin e (0-10) ng/L Troponin T 120 Min [place] (0-10) ng/L Delta Troponin T (0-10) ABS# NT-Pro-B Natriuret Pep 93525 H (0-450) pg/mL Total Protein 10.3 H (6.6-8.7) g/dL Albumin 2.5 L (3.5-5.2) g/dL Globulin 7.8 H (1.3-4.6) g/dL Influenza Type A A g (Negative) Influenza Type B A g (Negative) SARS-CoV-2 Ag (Rap id) (Negative) 12/18/19 12/18/19 12/18/19 Range/Units 14:58 14:58 14:58 WBC (4.0-10.0) 10^3/ uL RBC (4.1-5.3) 10^6/u L Hgb (11.5-15.3) g/dL Hct (37.0-47.0) % MCV (81-99) fL MCH (28.0-34.0) pg MCHC (30.0-36.0) g/dL RDW (12.1-15.1) % Plt Count (130-400) 10^3/c mm MPV (7.4-10.4) fL Neut % (Auto) % Lymph % (Auto) % [place] % (Auto) % Eos % (Auto) % Baso % (Auto) % Neut # (Auto) (1.8-7.7) 10^3/u L Lymph # (Auto) (0.8-4.8) 10^3/u L [place] # (Auto) (0.2-0.9) 10^3/u L Eos # (Auto) (0.0-0.8) 10^3/u L Baso # (Auto) (0.0-0.1) 10^3/u L Nucleated RBC % (a uto) % Nucleated RBCs # /100WBC D-Dimer (0-0.59) ug/mIFE U Sodium (136-145) mmol/L Potassium (3.5-5.1) mmol/L Chloride (98-107) mmol/L Carbon Dioxide (22-29) mmol/L Anion Gap (5-19) BUN (8-23) mg/dL Creatinine (0.5-0.9) mg/dL GFR Calculation Glucose (65-115) mg/dL Calculated Osmolal ity (285-295) mOsm/k g Lactic Acid 3.9 H (0.5-2.2) mmol/L Calcium (8.5-10.5) mg/dL Total Bilirubin (0.15-1.2) mg/dL AST (0-32) U/L ALT (0-33) U/L Alkaline Phosphata se (35-105) IU/L Creatine Kinase Cancelled (26-192) U/L CK-MB (CK-2) Cancelled (0-5.34) ng/mL CK-MB (CK-2) Rel I ndex Cancelled (0.0-10.4) % Troponin T Baselin e 356 H* (0-10) ng/L Troponin T 120 Min [place] (0-10) ng/L Delta Troponin T (0-10) ABS# NT-Pro-B Natriuret Pep (0-450) pg/mL Total Protein (6.6-8.7) g/dL Albumin (3.5-5.2) g/dL Globulin (1.3-4.6) g/dL Influenza Type A A g (Negative) Influenza Type B A g (Negative) SARS-CoV-2 Ag (Rap id) (Negative) 12/18/19 12/18/19 12/18/19 Range/Units 15:17 15:17 17:03 WBC (4.0-10.0) 10^3/ uL RBC (4.1-5.3) 10^6/u L Hgb (11.5-15.3) g/dL Hct (37.0-47.0) % MCV (81-99) fL MCH (28.0-34.0) pg MCHC (30.0-36.0) g/dL RDW (12.1-15.1) % Plt Count (130-400) 10^3/c mm MPV (7.4-10.4) fL Neut % (Auto) % Lymph % (Auto) % [place] % (Auto) % Eos % (Auto) % Baso % (Auto) % Neut # (Auto) (1.8-7.7) 10^3/u L Lymph # (Auto) (0.8-4.8) 10^3/u L [place] # (Auto) (0.2-0.9) 10^3/u L Eos # (Auto) (0.0-0.8) 10^3/u L Baso # (Auto) (0.0-0.1) 10^3/u L Nucleated RBC % (a uto) % Nucleated RBCs # /100WBC D-Dimer (0-0.59) ug/mIFE U Sodium (136-145) mmol/L Potassium (3.5-5.1) mmol/L Chloride (98-107) mmol/L Carbon Dioxide (22-29) mmol/L Anion Gap (5-19) BUN (8-23) mg/dL Creatinine (0.5-0.9) mg/dL GFR Calculation Glucose (65-115) mg/dL Calculated Osmolal ity (285-295) mOsm/k g Lactic Acid (0.5-2.2) mmol/L Calcium (8.5-10.5) mg/dL Total Bilirubin (0.15-1.2) mg/dL AST (0-32) U/L ALT (0-33) U/L Alkaline Phosphata se (35-105) IU/L Creatine Kinase (26-192) U/L CK-MB (CK-2) (0-5.34) ng/mL CK-MB (CK-2) Rel I ndex (0.0-10.4) % Troponin T Baselin e (0-10) ng/L Troponin T 120 Min [place] 343.7 H (0-10) ng/L Delta Troponin T -12.3 L (0-10) ABS# NT-Pro-B Natriuret Pep (0-450) pg/mL Total Protein (6.6-8.7) g/dL Albumin (3.5-5.2) g/dL Globulin (1.3-4.6) g/dL Influenza Type A A g Negative (Negative) Influenza Type B A g Negative (Negative) SARS-CoV-2 Ag (Rap id) Negative (Negative) Imaging Data^: CTA Chest: Attestation: I personally reviewed and interpreted this imaging study as follows: Radiologist's impression: [address] [address] [address] Scan Report Signed Patient: Alta Red #: [id number] : 7Acct#:[id number] Age/Sex: 84 / FADM Date: 12/18/19 Loc: ERRoom/Bed: Attending Dr: Ordering Provider/Ordering MD: Julio Min MD, [facility] Date of Service: 12/18/19 Procedure(s): CT angio chest PE protcl [id number] Accession Number(s): [id number] Report Number: [id number] PROCEDURE INFORMATION: Exam: CT Angiography Chest With Contrast Exam date and time: 12/18/2019 4:06 PM Age: 84 years old Clinical indication: Shortness of breath; Prior surgery; Surgery type: Stents; Additional info: SOB, high pretest prob TECHNIQUE: Imaging protocol: Computed tomographic angiography of the chest with intravenous contrast. 3D rendering (Not supervised by radiologist): MIP and/or 3D reconstructed images were created by the technologist. Radiation optimization: All CT scans at this facility use at least one of these dose optimization techniques: automated exposure control; mA and/or kV adjustment per patient size (includes targeted exams where dose is matched to clinical indication); or iterative reconstruction. Contrast material: VISI 320; Contrast volume: 67 ml; Contrast route: INTRAVENOUS (IV); COMPARISON: CT chest wo con [id number] 12/08/2019 3:48 PM RADIATION DOSE METRICS: Total DLP (mGy-cm): 624.52 FINDINGS: Pulmonary arteries: Main pulmonary artery measures 4.5 cm in diameter suggesting chronic pulmonary hypertension. No acute PE evident. Aorta: Ectatic aorta with abundant atherosclerotic calcification. For Lungs: Compressive atelectasis in the lower lobes posteriorly more pronounced on the right. Additional atelectasis involving much of right middle lobe. Pleural space: Moderate-sized right pleural effusion and tiny left pleural effusion. Heart: Mild cardiomegaly. Abundant coronary artery calcification versus stents. Lymph nodes: Unremarkable. No enlarged lymph nodes. Liver: Nodular liver margins consistent with cirrhosis. Bones/joints: Unremarkable. No acute fracture. Soft tissues: Unremarkable. CT/CT angio chest PE protcl [id number] IMPRESSION: 1.) Main pulmonary artery measures 4.5 cm in diameter suggesting chronic pulmonary hypertension. No acute PE evident. 2.) Moderate sized right pleural effusion and tiny left pleural effusion. Bibasilar atelectasis more pronounced on the right. 3.) Cirrhosis. Radiation Dose CTDIVOL = (mGy): DLP = 624.52 (mGy-cm) Dictated By:Joaquín Trujillo MD Signed By:Joaquín Trujillo [facility] Date/Time:12/18/191711 DD/ 09 CXR: Attestation: I personally reviewed and interpreted this imaging study as follows: Radiologist's impression: [place] [address] XRay Report Signed Patient: Alta Red #: [id number] : 7Acct#:[id number] Age/Sex: 84 / FADM Date: 12/18/19 Loc: ERRoom/Bed: Attending Dr: Ordering Provider/Ordering MD: Julio Min MD, [facility] Date of Service: 12/18/19 Procedure(s): XR chest 1V portable [id number] Accession Number(s): [id number] Report Number: [id number] PROCEDURE INFORMATION: Exam: XR Chest, 1 View Exam date and time: 12/18/2019 2:51 PM Age: 84 years old Clinical indication: Shortness of breath; Additional info: SOB TECHNIQUE: Imaging protocol: XR of the chest Views: 1 view. COMPARISON: CR XR chest 1V portable [id number] 12/15/2019 6:28 AM FINDINGS: Lungs: Focal patchy infiltrates or atelectasis both lung bases, slightly increased. Pleural space: Small bilateral pleural effusions, unchanged. Heart/Mediastinum: Mild cardiomegaly, unchanged. Vasculature: Mildly tortuous calcified aorta, chronic. Bones/joints: Unremarkable. XR/XR chest 1V portable [id number] IMPRESSION: 1.) Focal bibasilar infiltrates or atelectasis appear mildly increased. 2.) Mild cardiomegaly and small pleural effusions, unchanged. Dictated By:Joaquín Trujillo MD Signed By:Joaquín Trujillo MDSigned Date/Time:12/18/197 DD/ 1525 EKG Data^: EKG 1: Attestation: I personally reviewed and interpreted this EKG as follows: EKG Interpretation Date: 12/18/19 EKG interpretation time: 15:18 Prior EKG tracings: available for review Interpretation: Sinus rhythm. Heart rate 72 bpm. Left axis deviation. LVH. No ST changes. EKG 2: Attestation: I personally reviewed and interpreted this EKG as follows: EKG Interpretation Date: 12/18/19 EKG interpretation time: 16:52 Prior EKG tracings: available for review Interpretation: Normal sinus rhythm. Heart rate 60 bpm. Left axis deviation. LVH. No ST changes. No significant change from earlier. Discharge Plan Discharge Patient Disposition: Admitted As Inpatient Admit Provider: Gonzalez Howard Clinical Impression: Pneumonia, Metabolic acidosis, Pleural effusion, Hypoxia, Elevated troponin Condition: Stable 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: ED Discharge Assessment Last Done: 12/18/19 18:54 ED Charges Last Done: 12/18/19 18:46 Discharge Date/Time: 12/18/19 19:45 Coding Level of Care Code ED Health Physics Technician for Chg Fwd Exam Comprehensive
--- NOTE | 2019-12-18 14:40 | ECG_ITS ---
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 Measurements Intervals [place] Rate: 72 P: 61 TX: 191 QRS: -36 QRSD: 104 T: 89 QT: 414 QTc: 455 Interpretive Statements SINUS RHYTHM LEFT AXIS DEVIATION [QRS AXIS < -30] LEFT VENTRICULAR HYPERTROPHY AND ST-T CHANGE [VOLTAGE CRITERIA PLUS ST/T ABNORMALITY] Poor R wave progression;l nonspecific T wave changes Compared to ECG 12/08/2019 18:15:15 Left-axis deviation now present Left ventricular hypertrophy now present ST (T wave) deviation now present T-wave abnormality no longer present Electronically Signed On 12-18-2019 21:46:43 CDT by Kelly Parker M.D. [email or web address]
[2019-12-18 15:11] LABS: Basophils % 0.1 %; Eosinophils # 0.1 10^3/uL (0.0-0.8); Eosinophils % 0.8 %; Hematocrit 31.7 % (37.0-47.0); Lymphocytes # 1.6 10^3/uL (0.8-4.8); Lymphocytes % 14.7 %; Mean Corpuscular HGB Conc 31.5 g/dL (30.0-36.0); Mean Corpuscular Hemoglobin 31.3 pg (28.0-34.0); Mean Corpuscular Volume 99.4 fL (81-99); Mean Platelet Volume 11.4 fL (7.4-10.4); Monocytes # 1.3 10^3/uL (0.2-0.9); Monocytes % 11.2 %; Neutrophils # 7.77 10^3/uL (1.8-7.7); Neutrophils % 69.5 %; Nucleated Red Blood Cells % 0.2 %; Platelet Count 122 10^3/cmm (130-400); Red Blood Count 3.19 10^6/uL (4.1-5.3); Red Cell Distribution Width 17.8 % (12.1-15.1); White Blood Count 11.2 10^3/uL (4.0-10.0)
[2019-12-18 15:27] LABS: Lactic Sepsis W/Reflex 3.9 mmol/L (0.5-2.2)
[2019-12-18 15:32] LABS: D Dimer 2.68 ug/mIFEU (0-0.59)
[2019-12-18 15:38] LABS: Alanine Aminotransferase 39 U/L (0-33); Albumin Level 2.5 g/dL (3.5-5.2); Alkaline Phosphatase 96 IU/L (35-105); Anion Gap 16.3 (5-19); Aspartate Amino Transferase 55 U/L (0-32); Blood Urea Nitrogen 33 mg/dL (8-23); Calcium 11.3 mg/dL (8.5-10.5); Carbon Dioxide 26 mmol/L (22-29); Chloride 92 mmol/L (98-107); Creatinine Clr Calc Pharmacy 44.9422; Globulin 7.8 g/dL (1.3-4.6); Glucose 131 mg/dL (65-115); NT Pro B Type Natriuretic Pept 11754 pg/mL (0-450); Osmolality Calculated 281 mOsm/kg (285-295); Potassium 3.3 mmol/L (3.5-5.1); Sodium 131 mmol/L (136-145); Total Bilirubin 1.1 mg/dL (0.15-1.2); Total Protein 10.3 g/dL (6.6-8.7)
[2019-12-18 15:46] LABS: Influenza A by IFA Negative (Negative); Influenza B by IFA Negative (Negative); SARS Covid-2 Antigen Negative (Negative)
--- NOTE | 2019-12-18 15:49 | CTR_ITS ---
PROCEDURE INFORMATION: Exam: CT Angiography Chest With Contrast Exam date and time: 12/18/2019 4:06 PM Age: 84 years old Clinical indication: Shortness of breath; Prior surgery; Surgery type: Stents; Additional info: SOB, high pretest prob TECHNIQUE: Imaging protocol: Computed tomographic angiography of the chest with intravenous contrast. 3D rendering (Not supervised by radiologist): MIP and/or 3D reconstructed images were created by the technologist. Radiation optimization: All CT scans at this facility use at least one of these dose optimization techniques: automated exposure control; mA and/or kV adjustment per patient size (includes targeted exams where dose is matched to clinical indication); or iterative reconstruction. Contrast material: VISI 320; Contrast volume: 67 ml; Contrast route: INTRAVENOUS (IV); COMPARISON: CT chest wo con [id number] 12/08/2019 3:48 PM RADIATION DOSE METRICS: Total DLP (mGy-cm): 624.52 FINDINGS: Pulmonary arteries: Main pulmonary artery measures 4.5 cm in diameter suggesting chronic pulmonary hypertension. No acute PE evident. Aorta: Ectatic aorta with abundant atherosclerotic calcification. For Lungs: Compressive atelectasis in the lower lobes posteriorly more pronounced on the right. Additional atelectasis involving much of right middle lobe. Pleural space: Moderate-sized right pleural effusion and tiny left pleural effusion. Heart: Mild cardiomegaly. Abundant coronary artery calcification versus stents. Lymph nodes: Unremarkable. No enlarged lymph nodes. Liver: Nodular liver margins consistent with cirrhosis. Bones/joints: Unremarkable. No acute fracture. Soft tissues: Unremarkable. CT/CT angio chest PE protcl [id number] IMPRESSION: 1.) Main pulmonary artery measures 4.5 cm in diameter suggesting chronic pulmonary hypertension. No acute PE evident. 2.) Moderate sized right pleural effusion and tiny left pleural effusion. Bibasilar atelectasis more pronounced on the right. 3.) Cirrhosis. Radiation Dose CTDIVOL = (mGy): DLP = 624.52 (mGy-cm)
[2019-12-18 15:56] LABS: Troponin(5th) Baseline 356 ng/L (0-10)
[2019-12-18] MEDS: iodixanol 320 mg/mL 100mL Btl IV (16:09)
[2019-12-18 16:17] LABS: CKMB 1.2 ng/mL (0-5.34); Creatine Phosphokinase 92 U/L (26-192)
--- NOTE | 2019-12-18 16:40 | ECG_ITS ---
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 Measurements Intervals [place] Rate: 68 P: 64 TX: 190 QRS: -34 QRSD: 108 T: 97 QT: 418 QTc: 447 Interpretive Statements SINUS RHYTHM LEFT AXIS DEVIATION [QRS AXIS < -30] LEFT VENTRICULAR HYPERTROPHY AND ST-T CHANGE [VOLTAGE CRITERIA PLUS ST/T ABNORMALITY] Nonspecific T wave changes Compared to ECG 12/18/2019 15:18:11 No significant changes Electronically Signed On 12-18-2019 21:52:26 CDT by Kelly Parker M.D. [email or web address]
[2019-12-18 16:55] LABS: Reflex Lactate Order REFLEX LACTIC ORDERD
[2019-12-18] MEDS: piperacillin-tazobactam 3.375 GM in sodium chloride 0.9% (plus) 50 ML IV ×2 (17:14→23:59)
[2019-12-18 17:41] LABS: Troponin 5 2HR 343.7 ng/L (0-10); Troponin 5 2HR Delta -12.3 ABS# (0-10)
[2019-12-18] MEDS: sodium chloride 0.9% 1,000 ML 999 ML IV (17:44)
--- NOTE | 2019-12-18 17:45 | PC.NURSE ---
liter given per ems
--- NOTE | 2019-12-18 18:19 | P.HP_ITS ---
Providers/Chief Complaint Admitting Physician: Gonzalez Howard MD Primary Care Provider: Saul Nieto Jr, MD Chief Complaint: SOB History of Present Illness Alta Red is a 84 year old female 84-year-old female with IgG kappa myeloma on chemotherapy, hypertension, type 2 diabetes,hypothyroidism, CAD S/P stent in LAD ( 11/2019) HFrEf ,peripheral neuropathy, abnormal cardiac stress test in September 2019, degenerative arthritis,was admitted with c/o acute onset of SOB this morning,which has progressively worsened over the course of day. She denied any, fever, chills, cough, chest pain, nausea, vomiting, constipation,diarrhea. In the ER she was worked up for acute onset of shortness of breath, CT angio chest was done PE was ruled out.CTA chest showed moderate sized right pleural effusion and tiny left pleural effusion. Bibasilar atelectasis more pronounced on the right. EKG: LVH with nonspecific ST-T changes. Given 1 dose of Zosyn in the ER. Troponin baseline: 356, 2H: 343, delta T: -12.3., NT proBNP: 30215. Review of Systems General: Reports: 10 or more systems reviewed and unremarkable except in HPI and below Const: Denies: fever(s), chills, body aches, change in appetite or diaphoresis Card: Denies: palpitations, edema, swelling of feet/ankles, dyspnea on exertion, orthopnea or leg pain with exertion Resp: Denies: productive cough, wheezing or pain on inspiration GI: Denies: abdominal pain, nausea, vomiting, diarrhea or constipation : Denies: flank pain Musc: Denies: back pain, extremity pain or extremity swelling Neuro: Denies: headache(s), difficulty walking or confusion Medications/Allergies Home Medications Medication Instructions Recorded Confirmed Last Taken Type acetaminophen 650 mg 650 mg PO Q12H 05/15/19 12/12/19 05/15/19 History tablet,extended release multivitamin,gc-buuk-[id number] 1 tab PO DAILY 05/15/19 12/13/19 05/15/19 History sennosides 8.6 mg-docusate sodium 1 tab-cap PO DAILY 05/15/19 12/13/19 05/15/19 History 50 mg tablet amlodipine 10 mg PO DAILY #30 tab 05/25/19 12/12/19 Unknown Rx aspirin 81 mg PO DAILY #30 tab 05/25/19 12/12/19 Unknown Rx pantoprazole 40 mg tablet,delayed 40 mg PO DAILY 06/17/19 12/12/19 Unknown History release atorvastatin 40 mg PO DAILY #30 tab 12/15/19 Unknown Rx clopidogrel 75 mg PO DAILY #30 tab 12/15/19 Unknown Rx fluticasone propionate [Flovent 1 inh INHALATION BID #10.6 gm 12/15/19 Unknown Rx HFA] furosemide 40 mg PO BID #0 tab 12/15/19 12/12/19 Unknown Rx ipratropium-albuterol 1 puff INHALATION Q6H 15 Days #40 12/15/19 Unknown Rx gm isosorbide mononitrate 15 mg PO DAILY #30 tab 12/15/19 Unknown Rx levothyroxine [Levoxyl] 200 mcg PO DAILY #30 tab 12/15/19 Unknown Rx methylprednisolone [Medrol ([place])] See Rx Instructions .ROUTE 12/15/19 Unknown Rx .COMPLEX #21 each metoprolol tartrate 50 mg PO BID #180 tab 12/15/19 12/12/19 Unknown Rx Allergies Allergy/AdvReac Type Severity Reaction Status Date / Time lenalidomide [From Revlimid] Allergy ALGY-Rash Verified 08/16/19 11:54 lisinopril AdvReac ADR-Cough Verified 08/16/19 11:54 PFSH Acute PFSH: Medical History Abnormal cardiovascular stress test Acute diastolic heart failure Compensated currently Arthritis Benign essential hypertension with target blood pressure below 140/90 Improved Diabetes Dyslipidemia History of nephrolithiasis Hypertension Peripheral neuropathy Recent non-ST elevation myocardial infarction Surgical History H/O cystoscopy H/O foot surgery H/O lithotripsy H/O: hysterectomy History of cholecystectomy History of mastectomy, subtotal History of right hip replacement History of thyroidectomy Status post breast reduction Family History Mother Congestive heart failure Cancer breast and kidney Denies family history of Anesthesia complication Bleeding disorder Social History Smoking and tobacco status: never smoked Alcohol intake: never Household members: spouse Marital status: Current occupational status: retired History of recent travel: Yes Details: [place] Out of state: No Vitals/I&O/Wt Last Vital Signs Temp 97.7 F 12/18/19 13:56 Pulse 76 12/18/19 17:23 Resp 17 12/18/19 17:23 BP 138/51 12/18/19 17:23 Pulse Ox 98 12/18/19 17:23 Weight last 48 hrs Weight 78.018 kg Physical Exam Const: COMMON NORMALS: patient oriented x3 HENMT: COMMON NORMALS: normocephalic, atraumatic, hearing grossly normal bilaterally and external ears normal HEAD & SCALP: normocephalic and atraumatic EXTERNAL EAR: Yes external ears normal Eye: COMMON NORMALS: no scleral icterus GENERAL EYE: appearance normal, both eyes and all related structures Chest: COMMONS NORMALS: normal inspection of the chest and normal palpation of entire chest wall CHEST: Yes Symmetrical chest wall rise Resp: COMMON NORMALS: normal respiratory effort, No retractions, No use of accessory muscles and clear to auscultation bilaterally EFFORT & INSPECTION: Yes symmetric chest movement AUSCULTATION: clear to auscultation bilaterally Cardio: COMMON NORMALS: regular rate, regular rhythm, S1 normal heart sound present, S2 normal heart sound present, No gallops present (Cardio), No murmurs present (Cardio), No rub (Cardio) and Peripheral pulses 2+ throughout RATE: regular rate RHYTHM: regular rhythm HEART SOUNDS: S1 normal heart sound present and S2 normal heart sound present PERIPHERAL PULSES: Peripheral pulses 2+ throughout GI: COMMON NORMALS: Normal to inspection, nondistended, normoactive bowel sounds present, Soft to palpation, non-tender, No hepatosplenomegaly present and no masses AUSCULTATION: Yes normoactive bowel sounds PALPATION: Yes Soft to palpation and Yes No hepatosplenomegaly present RECTAL EXAM: deferred Back/Pelvis: COMMON NORMALS: no CVA tenderness Extremity: COMMON NORMALS: no clubbing, cyanosis or edema and no pedal edema Neuro: COMMON NORMALS: patient oriented x3 Data : 12/18/19 14:58 12/18/19 14:58 A&P Assessment and plan (1) Pneumonia: Patient came in with chief complaint of shortness. P.E was ruled out. X- ray chest, and CT chest: Suggestive of pneumonic process. We will continue with Zosyn. Serial chest x-ray Follow lactic acid. Follow blood culture Follow urinalysis and urine culture. Status: Acute (2) Pleural effusion: Chronic Rt pleural effusion, likely secondary to longstanding heart failure (currently compensated). We will continue with Lasix 40 mg p.o. every 12 hours daily. No need for thoracentesis now. Status: Acute (3) Stented coronary artery: History of recent NSTEMI, status post PCI LAD. We will continue with aspirin and Plavix Status: Acute (4) Heart failure: Heart failure with reduced ejection fraction, compensated Continue Lasix 40 mg every 12 hours day Continue metoprolol We will add low-dose losartan 12.5 mg po daily. Assess intake output Daily weight Fluid restriction Status: Acute Qualifiers: Heart failure type: diastolic Heart failure chronicity: acute on chronic Qualified Code(s): I50.33 - Acute on chronic diastolic (congestive) heart failure (5) Hypercalcemia: Hypercalcemia of malignancy; continue to monitor serum calcium. Currently has no symptoms of hypercalcemia. Status: Acute (6) Multiple myeloma: She will follow oncology as an outpatient. Status: Acute (7) Hypothyroidism: Start levothyroxine at 125 mcg oral daily. Follow TSH Status: Acute (8) Hypokalemia: Current serum potassium is 3.3. We will place her on KDUR : 20 mEq oral daily Status: Acute Additional A&P Information DVT PPX: Lovenox 40 mg sc daily Code Status : Full code Attestations Medical Necessity Statement*: Needs to be in hospital for management of pneumonia Coding Level of Care Code Acute Manager Business for [facility] Diagnoses Pneumonia J18.9 Pleural effusion J90 Stented coronary artery Z95.5 Heart failure I50.33 Heart failure type: diastolic Heart failure chronicity: acute on chronic Hypercalcemia E83.52 Multiple myeloma C90.00 Hypothyroidism E03.9 Hypokalemia E87.6
[2019-12-18] MEDS: enoxaparin 40 mg/0.4 mL Syringe SUBCUT (20:00)
[2019-12-18 20:54] LABS: Lactic Sepsis W/Reflex 3.5 mmol/L (0.5-2.2)
[2019-12-18] MEDS: ipratropium-albuterol 3 mL Neb INHALATION (20:55)
[2019-12-18 21:02] LABS: Troponin 5 6HR 335.3 ng/L (0-10); Troponin 5 6HR Delta -20.7 ng/L (0-12)
[2019-12-18 21:13] LABS: Lactic Acid level (Lactate) 2.4 mmol/L (0.5-2.2)
[2019-12-18 22:22] LABS: Reflex Lactate Order REFLEX LACTIC ORDERD
[2019-12-19] VITALS (20 sets, daily range): BP systolic 124–145; BP diastolic 47–58; PULSE 74–94; RESP 14–26; TEMP 36.7–37.3; O2SAT 85–97
[2019-12-19] LABS: Lactic Acid level (Lactate) 2.7 mmol/L (0.5-2.2)
--- NOTE | 2019-12-19 03:40 | PC.NURSE ---
Addendum entered by Krystle Dimas RN 12/19/19 03:43: Ordered to continue breathing treatments as ordered. Original Note: Dr. Pérez notified of patient being very short of breath. Doctor came to see patient.
[2019-12-19] MEDS: ipratropium-albuterol 3 mL Neb INHALATION ×4 (03:50→20:42)
[2019-12-19 05:07] LABS: Basophils % 0.1 %; Eosinophils # 0.1 10^3/uL (0.0-0.8); Eosinophils % 1.1 %; Hematocrit 27.1 % (37.0-47.0); Hemoglobin 8.4 g/dL (11.5-15.3); Lymphocytes # 1.5 10^3/uL (0.8-4.8); Lymphocytes % 18.2 %; Mean Corpuscular Hemoglobin 31.6 pg (28.0-34.0); Mean Corpuscular Volume 101.9 fL (81-99); Mean Platelet Volume 11.7 fL (7.4-10.4); Monocytes # 0.8 10^3/uL (0.2-0.9); Monocytes % 9.9 %; Neutrophils # 5.64 10^3/uL (1.8-7.7); Neutrophils % 69.1 %; Nucleated Red Blood Cells % 0 %; Platelet Count 97 10^3/cmm (130-400); Red Blood Count 2.66 10^6/uL (4.1-5.3); Red Cell Distribution Width 18.1 % (12.1-15.1); White Blood Count 8.2 10^3/uL (4.0-10.0)
[2019-12-19 05:23] LABS: INR 1.49 (0.8-1.2)
[2019-12-19 05:24] LABS: Partial Thromboplastin Time 32.1 SECONDS (23.9-36.7)
[2019-12-19 05:51] LABS: Alanine Aminotransferase 33 U/L (0-33); Albumin Level 2.2 g/dL (3.5-5.2); Alkaline Phosphatase 81 IU/L (35-105); Aspartate Amino Transferase 46 U/L (0-32); Blood Urea Nitrogen 30 mg/dL (8-23); Calcium 11.1 mg/dL (8.5-10.5); Carbon Dioxide 26 mmol/L (22-29); Chloride 96 mmol/L (98-107); Globulin 6.8 g/dL (1.3-4.6); Glucose 129 mg/dL (65-115); Magnesium 1.5 mg/dL (1.7-2.3); Osmolality Calculated 286 mOsm/kg (285-295); Phosphorus 5.8 mg/dL (2.5-4.5); Sodium 134 mmol/L (136-145); Thyroid Stimulating Hormone 0.23 uIU/mL (0.27-4.20); Total Bilirubin 0.8 mg/dL (0.15-1.2)
[2019-12-19] MEDS: piperacillin-tazobactam 3.375 GM in sodium chloride 0.9% (plus) 50 ML IV ×3 (06:07→23:27)
[2019-12-19] MEDS: atorvastatin 40 mg Tablet PO (09:09)
[2019-12-19] MEDS: losartan 50 mg Tablet 25 MG PO (09:09)
[2019-12-19] MEDS: clopidogrel 75 mg Tablet PO (09:09)
[2019-12-19] MEDS: levothyroxine 125 mcg Tablet PO (09:09)
[2019-12-19] MEDS: potassium chloride ER 10 mEq Tablet 20 MEQ PO (09:10)
[2019-12-19] MEDS: metoprolol tartrate 25 mg Tablet 50 MG PO ×2 (09:11→17:07)
[2019-12-19] MEDS: amlodipine 10 mg Tablet PO (09:11)
[2019-12-19] MEDS: aspirin 81 mg EC Tablet PO (09:11)
[2019-12-19] MEDS: pantoprazole DR 40 mg Tablet PO (09:11)
[2019-12-19] MEDS: FUROsemide 40 mg Tablet PO (09:11)
--- NOTE | 2019-12-19 09:52 | PM.PN ---
Subjective Subjective: Interval history: Patient was comfortable in the bed. She is saturating well on 2 L of oxygen via nasal cannula. Leukocytosis has improved.She has remained afebrile. Vitals are stable. She is tolerating diet well. Medications: Reviewed: Yes Vitals/I&O/Wt Last Vital Signs Temp 98.1 F 12/19/19 07:36 Pulse 83 12/19/19 08:16 Resp 20 H 12/19/19 08:16 BP 138/56 12/19/19 09:09 Pulse Ox 95 12/19/19 08:16 12/18/19 12/19/19 12/19/19 22:59 06:59 14:59 Intake Total 249.792 / 249.792 Output Total 250 / 250 Balance -0.208 / -0.208 Weight last 48 hrs Weight 72.802 kg Weight 78.018 kg Physical Exam Const: COMMON NORMALS: patient oriented x3 HENMT: COMMON NORMALS: normocephalic, atraumatic, hearing grossly normal bilaterally and external ears normal HEAD & SCALP: normocephalic and atraumatic EXTERNAL EAR: Yes external ears normal Eye: COMMON NORMALS: no scleral icterus GENERAL EYE: appearance normal, both eyes and all related structures Chest: COMMONS NORMALS: normal inspection of the chest and normal palpation of entire chest wall CHEST: Yes Symmetrical chest wall rise Resp: COMMON NORMALS: normal respiratory effort, No retractions, No use of accessory muscles and clear to auscultation bilaterally EFFORT & INSPECTION: Yes symmetric chest movement AUSCULTATION: clear to auscultation bilaterally Cardio: COMMON NORMALS: regular rate, regular rhythm, S1 normal heart sound present, S2 normal heart sound present, No gallops present (Cardio), No murmurs present (Cardio), No rub (Cardio) and Peripheral pulses 2+ throughout RATE: regular rate RHYTHM: regular rhythm HEART SOUNDS: S1 normal heart sound present and S2 normal heart sound present PERIPHERAL PULSES: Peripheral pulses 2+ throughout GI: COMMON NORMALS: Normal to inspection, nondistended, normoactive bowel sounds present, Soft to palpation, non-tender, No hepatosplenomegaly present and no masses AUSCULTATION: Yes normoactive bowel sounds PALPATION: Yes Soft to palpation and Yes No hepatosplenomegaly present RECTAL EXAM: deferred Extremity: COMMON NORMALS: no clubbing, cyanosis or edema and no pedal edema Neuro: COMMON NORMALS: patient oriented x3 Data : 12/19/19 04:40 12/19/19 04:40 A&P Assessment and plan (1) Pneumonia: Patient came in with chief complaint of shortness. P.E was ruled out. X-ray chest, and CT chest: Suggestive of pneumonic process. We will continue with Zosyn. Lactic Acid:3.5 Procal: Serial chest x-ray Follow [place] culture Follow urinalysis and urine culture. Status: Acute Qualifiers: Laterality: right Lung location: lower lobe of lung Pneumonia type: due to unspecified organism Qualified Code(s): J18.9 - Pneumonia, unspecified organism (2) Pleural effusion: Chronic Rt pleural effusion, likely secondary to longstanding heart failure (currently compensated)./PNA We will continue with Lasix 40 mg p.o. every 12 hours daily. No need for thoracentesis now. Status: Acute (3) Stented coronary artery: History of recent NSTEMI, status post PCI LAD. We will continue with aspirin and Plavix Status: Acute (4) Heart failure: Heart failure with reduced ejection fraction, compensated Continue Lasix 40 mg every 12 hours day Continue metoprolol We will add low-dose losartan 12.5 mg po daily. Assess intake output Daily weight Fluid restriction Status: Acute Qualifiers: Heart failure type: diastolic Heart failure chronicity: acute on chronic Qualified Code(s): I50.33 - Acute on chronic diastolic (congestive) heart failure (5) Hypercalcemia: Hypercalcemia of malignancy; continue to monitor serum calcium. Currently has no symptoms of hypercalcemia. Likely failed bisphosphonate Can consider denosumab as outpatient( cost barrier ) Status: Acute (6) Multiple myeloma: She will follow oncology as an outpatient. Status: Acute (7) Hypothyroidism: Start levothyroxine at 125 mcg oral daily. TSH: 0.23 Follow Full thyroid panel in am Status: Acute (8) Hypokalemia: Current serum potassium is 3.0. Monitor Serum K Gave 40 meq KDUR Today evelyn with her standing dose of KDUR : 20 mEq oral daily Status: Acute (9) Anemia: Likely Anemia of inflammation. Continue to monitor CBC. Status: Acute Additional A&P Information DVT PPX: Lovenox 40 mg sc daily Code Status : Full code Attestations Medical Necessity Statement*: Patient needs to be in hospital for management of pneumonia. Coding Level of Care Code Acute [facility] Senior Specialist for [facility] Diagnoses Pneumonia J18.9 Laterality: right Lung location: lower lobe of lung Pneumonia type: due to unspecified organism Pleural effusion J90 Stented coronary artery Z95.5 Heart failure I50.33 Heart failure type: diastolic Heart failure chronicity: acute on chronic Hypercalcemia E83.52 Multiple myeloma C90.00 Hypothyroidism E03.9 Hypokalemia E87.6 Anemia D64.9
--- NOTE | 2019-12-19 10:31 | PC.CHAP ---
Pastoral Care Encounter/Spiritual Assessment Type of Contact [] Declined overhead cleaner visit [] Patient/Family/Request visit [] Outpatient visit [] Follow-up visit [] Physician referral [] Code/Alert [x] Routine visit [] Staff referral [] Actively dying [] Patient sleeping [] Family support [] [] Out of room [] Palliative care [] [x] Receiving care in room [] Pre-surgical visit [] Trauma [] Long length of stay [] ICU visit [] Other: Relational/Emotional Strength [x] Patient feels connected with others/family/visitors/staff [] Distress [] Loneliness/isolation [] Abandonment Spirituality of Patient [x] Person of Lia [] Attends Confucianism of their Lia [x] Believes in Prayer [] Reads Bible or Islam materials [] There are Spiritual issues to be addressed Farm Service Consultant 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 [x] Prayer [x] Active listening [x] Non-anxious presence [x] Spiritual/emotional support [] Crisis/trauma care [x] Spiritual counseling [] Bereavement support [] Provided bereavement packet [] Provided Bible/devotional materials [] Provided toy/stuffed animal, coloring book to patient or family member [] Provided Communion [] Anointing/[place] [] Salvation [x] Completed spiritual assessment [] Other: Impact on Illness or Injury [] Angry [] Fearful [x] Anxious [] Often cries [] Exhaustion [] Unable to work [] Unable to attend congregation [] Unable to walk/stand [] Unable to read [] Unable to drive [] Unable to eat/drink [] Unable to sleep [] Unable to be with family [] Patient intubated [] Other: Summary She is feeling better, retired stays home, has good attitude, she is stabale at this time` Time spent with patient 10 mins
[2019-12-19] MEDS: vancomycin 1,000 MG in sodium chloride 0.9% 250 ML 250 MG IV (14:54)
[2019-12-19] MEDS: potassium chloride ER 10 mEq Tablet 40 MEQ PO (14:57)
--- NOTE | 2019-12-19 16:37 | PC.NURSE ---
PATIENT HAS ONE UNIT PRBC ORDERED. PATIENT HAS ZOSYN RUNNING THROUGH HER CURRENT IV. SECOND IV WAS ATTEMPTED, HOWEVER PATIENT IS A DIFFICULT STICK AND SECOND IV WAS NOT OBTAINED. DR. QUINONES NOTIFIED. PHYSICIAN STATED TO LET ZOSYN DOSE FINISH, THEN RUN THE PRBC'S. ALSO, PLEASE GIVE THE SCHEDULED 1900 LASIX AFTER PRBC HAVE COMPLETED.
--- NOTE | 2019-12-19 19:23 | PC.NURSE ---
Received report from Kami Vazquez RN. Patient resting in bed. Patient denies pain or other needs at this time. No distress observed. Discussed need for 1 unit PRBCs. Patient expressed understanding. Assessment completed as documented.
[2019-12-19] MEDS: sodium chloride 0.9% (100 ml) 100 ML 30 ML (20:00)
--- NOTE | 2019-12-19 20:06 | PC.NURSE ---
Addendum entered by Radha Whelan RN 12/19/19 20:09: Consent for blood transfusion signed and placed in chart prior to blood initiation. Patient able to inform RN of possible reactions and also stated she has had many transfusion in her lifetime. Original Note: Blood transfusion initiated as ordered and documented in [facility].
[2019-12-19] MEDS: enoxaparin 40 mg/0.4 mL Syringe SUBCUT (22:24)
[2019-12-19] MEDS: FUROsemide 10 mg/mL SDV 4mL 40 MG IVP (22:24)
[2019-12-20] VITALS (13 sets, daily range): BP systolic 120–129; BP diastolic 46–65; PULSE 70–87; RESP 12–20; TEMP 36.3–36.6; O2SAT 92–97
[2019-12-20] MEDS: ipratropium-albuterol 3 mL Neb INHALATION ×4 (02:17→21:31)
[2019-12-20] MEDS: acetaminophen 325 mg Tablet 650 MG PO ×3 (03:30→19:27)
[2019-12-20 05:06] LABS: Basophils % 0.1 %; Eosinophils # 0.1 10^3/uL (0.0-0.8); Eosinophils % 1.4 %; Hematocrit 31.8 % (37.0-47.0); Lymphocytes % 13.9 %; Mean Corpuscular HGB Conc 31.4 g/dL (30.0-36.0); Mean Corpuscular Hemoglobin 30.8 pg (28.0-34.0); Mean Corpuscular Volume 97.8 fL (81-99); Mean Platelet Volume 11.1 fL (7.4-10.4); Monocytes # 0.8 10^3/uL (0.2-0.9); Monocytes % 12.1 %; Neutrophils # 4.93 10^3/uL (1.8-7.7); Neutrophils % 70.8 %; Nucleated Red Blood Cells % 0 %; Platelet Count 99 10^3/cmm (130-400); Red Blood Count 3.25 10^6/uL (4.1-5.3); Red Cell Distribution Width 19.1 % (12.1-15.1)
[2019-12-20 05:18] LABS: INR 1.31 (0.8-1.2)
[2019-12-20 05:19] LABS: Partial Thromboplastin Time 36.1 SECONDS (23.9-36.7)
[2019-12-20 05:36] LABS: Alanine Aminotransferase 32 U/L (0-33); Albumin Level 2.3 g/dL (3.5-5.2); Alkaline Phosphatase 77 IU/L (35-105); Anion Gap 11.5 (5-19); Aspartate Amino Transferase 43 U/L (0-32); Blood Urea Nitrogen 23 mg/dL (8-23); Calcium 11.5 mg/dL (8.5-10.5); Carbon Dioxide 28 mmol/L (22-29); Chloride 99 mmol/L (98-107); Globulin 7.4 g/dL (1.3-4.6); Glucose 168 mg/dL (65-115); Magnesium 1.5 mg/dL (1.7-2.3); Osmolality Calculated 288 mOsm/kg (285-295); Phosphorus 3.5 mg/dL (2.5-4.5); Potassium 3.5 mmol/L (3.5-5.1); Sodium 135 mmol/L (136-145); Total Bilirubin 1.2 mg/dL (0.15-1.2); Total Protein 9.7 g/dL (6.6-8.7)
[2019-12-20 05:40] LABS: Free T4 Free Thyroxine 2.34 ng/dL (0.82-1.77); T3 Free 1.8 PG/ML (2.0-4.4)
[2019-12-20 06:32] LABS: Procalcitonin 0.46 ng/mL (0-0.5)
--- NOTE | 2019-12-20 06:36 | XRR_ITS ---
PROCEDURE INFORMATION: Exam: XR Chest, 1 View Exam date and time: 12/20/2019 5:18 AM Age: 84 years old Clinical indication: Shortness of breath; Additional info: HE [place] TECHNIQUE: Imaging protocol: XR of the chest Views: Frontal portable upright view of the chest. COMPARISON: CR XR chest 1V portable [id number] 12/18/2019 2:37 PM FINDINGS: Tubes, catheters and devices: EKG leads are present overlying the chest. Lungs: Left lateral basilar infiltrate. The pulmonary vasculature remains congested. Pleural space: Increased small left pleural effusion. Stable small right pleural effusion. No pneumothorax. Heart/Mediastinum: Mediastinum: Stable. Bones/joints: Moderate aortic arch and upper descending thoracic aortic atherosclerotic calcification without ectasia. Stable. XR/XR chest 1V portable [id number] IMPRESSION: 1. Increased left lateral basilar infiltrate. Pneumonitis is difficult to exclude. Clinical correlation is recommended. 2. Increased small left pleural effusion. 3. Stable small right pleural effusion. 4. Persistent pulmonary vascular congestion.
[2019-12-20] MEDS: FUROsemide 10 mg/mL SDV 4mL 40 MG IVP ×2 (08:01→19:26)
[2019-12-20] MEDS: piperacillin-tazobactam 3.375 GM in sodium chloride 0.9% (plus) 50 ML IV ×3 (08:14→23:29)
[2019-12-20] MEDS: clopidogrel 75 mg Tablet PO (08:29)
[2019-12-20] MEDS: metoprolol tartrate 25 mg Tablet 50 MG PO ×2 (08:29→16:58)
[2019-12-20] MEDS: potassium chloride ER 10 mEq Tablet 20 MEQ PO (08:29)
[2019-12-20] MEDS: amlodipine 10 mg Tablet PO (08:29)
[2019-12-20] MEDS: levothyroxine 125 mcg Tablet PO (08:30)
[2019-12-20] MEDS: atorvastatin 40 mg Tablet PO (08:30)
[2019-12-20] MEDS: losartan 50 mg Tablet 25 MG PO (08:30)
[2019-12-20] MEDS: aspirin 81 mg EC Tablet PO (08:30)
[2019-12-20] MEDS: pantoprazole DR 40 mg Tablet PO (08:31)
--- NOTE | 2019-12-20 10:35 | PM.PN ---
Subjective Subjective: Interval history: Status post 1 unit PRBC transfusion yesterday. Currently denies any active complain. Vitals and labs have been reviewed. Has remained afebrile, hemodynamically stable. She is tolerating diet well. Medications: Reviewed: Yes Vitals/I&O/Wt Last Vital Signs Temp 97.3 F L 12/20/19 08:00 Pulse 79 12/20/19 08:37 Resp 16 12/20/19 08:32 BP 129/65 12/20/19 08:30 Pulse Ox 97 12/20/19 08:32 12/19/19 12/20/19 12/20/19 22:59 06:59 14:59 Intake Total 918.958 / 1208.958 50 / 1258.958 3.125 / 3.125 Output Total 300 / 1000 1250 / 2250 Balance 618.958 / 208.958 -1200 / -991.042 3.125 / 3.125 Weight last 48 hrs Weight 73.573 kg Weight 72.802 kg Weight 78.018 kg Physical Exam Const: COMMON NORMALS: patient oriented x3 HENMT: COMMON NORMALS: normocephalic, atraumatic, hearing grossly normal bilaterally and external ears normal HEAD & SCALP: normocephalic and atraumatic EXTERNAL EAR: Yes external ears normal Eye: COMMON NORMALS: no scleral icterus GENERAL EYE: appearance normal, both eyes and all related structures Chest: COMMONS NORMALS: normal inspection of the chest and normal palpation of entire chest wall CHEST: Yes Symmetrical chest wall rise Resp: COMMON NORMALS: normal respiratory effort, No retractions, No use of accessory muscles and clear to auscultation bilaterally EFFORT & INSPECTION: Yes symmetric chest movement AUSCULTATION: clear to auscultation bilaterally OTHER: Decreased air entry on the right lower lung field. Cardio: COMMON NORMALS: regular rate, regular rhythm, S1 normal heart sound present, S2 normal heart sound present, No gallops present (Cardio), No murmurs present (Cardio), No rub (Cardio) and Peripheral pulses 2+ throughout RATE: regular rate RHYTHM: regular rhythm HEART SOUNDS: S1 normal heart sound present and S2 normal heart sound present PERIPHERAL PULSES: Peripheral pulses 2+ throughout GI: COMMON NORMALS: Normal to inspection, nondistended, normoactive bowel sounds present, Soft to palpation, non-tender, No hepatosplenomegaly present and no masses AUSCULTATION: Yes normoactive bowel sounds PALPATION: Yes Soft to palpation and Yes No hepatosplenomegaly present RECTAL EXAM: deferred Extremity: COMMON NORMALS: no clubbing, cyanosis or edema and no pedal edema Neuro: COMMON NORMALS: patient oriented x3 Data : 12/21/19 05:27 12/21/19 05:27 Micro: Microbiology 12/19/19 22:30 Sputum Culture - Preliminary Sputum - Expectorated Sputum 12/19/19 15:03 Blood Culture - Preliminary Blood SPECIMEN COLLECTED 12/19/19 14:59 Blood Culture - Preliminary Blood SPECIMEN COLLECTED A&P Assessment and plan (1) Pneumonia: Patient came in with chief complaint of shortness. P.E was ruled out. X-ray chest, and CT chest: Suggestive of pneumonic process. We will continue with Zosyn. Vancomycin was added for MRSA Coverage,Given high risk for MRSA with h/o recurrent hospital admission. Lactic Acid:3.5 Procal:0.46 Serial chest x-ray: Stable right pleural effusion, lateral basal infiltrate, consistent with pneumonia. Follow [place] culture. Status: Acute Qualifiers: Laterality: right Lung location: lower lobe of lung Pneumonia type: due to unspecified organism Qualified Code(s): J18.9 - Pneumonia, unspecified organism (2) Pleural effusion: Chronic Rt pleural effusion, likely secondary to longstanding heart failure (currently compensated)./PNA/Possible malignat effusion. Currently on Lasix 40 mg I.V Q.12 hours daily. Case discussed with Radiologist regarding possible thoracentesis.It is a high risk thoracentesis given the patient on Aspirin & Plavix and with h/o recent PCI to LAD. Status: Acute (3) Stented coronary artery: History of recent NSTEMI, status post PCI LAD. We will continue with aspirin and Plavix Status: Acute (4) Heart failure: Heart failure with reduced ejection fraction, compensated Continue Lasix 40 mg every 12 hours day Continue metoprolol We will add low-dose losartan 12.5 mg po daily. Assess intake output Daily weight Fluid restriction Status: Acute Qualifiers: Heart failure chronicity: acute on chronic Heart failure type: diastolic Qualified Code(s): I50.33 - Acute on chronic diastolic (congestive) heart failure (5) Hypercalcemia: Hypercalcemia of malignancy; continue to monitor serum calcium. Currently has no symptoms of hypercalcemia. Likely has failed bisphosphonate Can consider denosumab as outpatient( cost barrier ) Status: Acute (6) Multiple myeloma: She will follow oncology as an outpatient. Status: Acute (7) Hypothyroidism: Start levothyroxine at 125 mcg oral daily. TSH: 0.23 Follow Full thyroid panel in am Status: Acute (8) Hypokalemia: Current serum potassium is 3.0. Monitor Serum K Gave 40 meq KDUR Today evelyn with her standing dose of KDUR : 20 mEq oral daily Status: Acute (9) Anemia: Likely Anemia of inflammation. S/P 1 U PRBC Transfusion.Currently Hb : 10 ( Stable) Continue to monitor CBC. Status: Acute Additional A&P Information DVT PPX: Lovenox 40 mg sc daily Code Status : Full code Disposition: Home : Anticipated DC on monday Attestations Medical Necessity Statement*: Patient needs to be in hospital for management of pneumonia. Coding Level of Care Code Acute Lab Manager for [facility] Fwd Exam Comprehensive Diagnoses Pneumonia J18.9 Laterality: right Lung location: lower lobe of lung Pneumonia type: due to unspecified organism Pleural effusion J90 Stented coronary artery Z95.5 Heart failure I50.33 Heart failure chronicity: acute on chronic Heart failure type: diastolic Hypercalcemia E83.52 Multiple myeloma C90.00 Hypothyroidism E03.9 Hypokalemia E87.6 Anemia D64.9
[2019-12-20] MEDS: magnesium sulfate premix 2 GM/50 ML PIGGYBACK IV (13:26)
[2019-12-20] MEDS: vancomycin 1,000 MG in sodium chloride 0.9% 250 ML 250 MG IV (15:15)
--- NOTE | 2019-12-20 19:06 | PC.NURSE ---
Shift Summary Patient had uneventful shift. Patient was assisted to side of bed for meals, tolerated well. Dr. Howard notified that patient maintains o2 sats mid 90s while awake, sats drop to low to mid 80s while sleeping. Physician gave telephone order to place patient on 2L NC for naps and at HS, RBTO. Patient tolerated well. No further needs identified at this time.
[2019-12-20] MEDS: enoxaparin 40 mg/0.4 mL Syringe SUBCUT (19:26)
--- NOTE | 2019-12-20 19:32 | PC.NURSE ---
Patient resting in bed watching television. Patient reports feeling some better this evening. Administered medications as ordered. Patient c/o generalized arthritis pain 07/06. Administered Tylenol as ordered. Instructed patient on medications. Patient verbalized complete understanding acknowledging that the Lovenox shot is much better than having blood clots. Patient denies other needs. No distress observed.
[2019-12-21] VITALS (15 sets, daily range): BP systolic 121–140; BP diastolic 48–67; PULSE 68–82; RESP 12–22; TEMP 36.4–36.8; O2SAT 92–98
[2019-12-21 05:44] LABS: Basophils % 0.1 %; Eosinophils # 0.1 10^3/uL (0.0-0.8); Eosinophils % 0.9 %; Hematocrit 32.3 % (37.0-47.0); Hemoglobin 10.1 g/dL (11.5-15.3); Lymphocytes # 1.1 10^3/uL (0.8-4.8); Lymphocytes % 13.5 %; Mean Corpuscular HGB Conc 31.3 g/dL (30.0-36.0); Mean Corpuscular Hemoglobin 30.8 pg (28.0-34.0); Mean Corpuscular Volume 98.5 fL (81-99); Monocytes # 0.9 10^3/uL (0.2-0.9); Monocytes % 11.5 %; Neutrophils # 5.92 10^3/uL (1.8-7.7); Neutrophils % 72.2 %; Nucleated Red Blood Cells % 0 %; Platelet Count 103 10^3/cmm (130-400); Red Blood Count 3.28 10^6/uL (4.1-5.3); Red Cell Distribution Width 18.7 % (12.1-15.1); White Blood Count 8.2 10^3/uL (4.0-10.0)
[2019-12-21 06:26] LABS: Alanine Aminotransferase 26 U/L (0-33); Albumin Level 2.1 g/dL (3.5-5.2); Alkaline Phosphatase 69 IU/L (35-105); Anion Gap 9.7 (5-19); Aspartate Amino Transferase 35 U/L (0-32); Blood Urea Nitrogen 27 mg/dL (8-23); Calcium 11.5 mg/dL (8.5-10.5); Carbon Dioxide 29 mmol/L (22-29); Chloride 99 mmol/L (98-107); Globulin 7.4 g/dL (1.3-4.6); Glucose 121 mg/dL (65-115); Osmolality Calculated 284 mOsm/kg (285-295); Phosphorus 4.2 mg/dL (2.5-4.5); Potassium 3.7 mmol/L (3.5-5.1); Sodium 134 mmol/L (136-145); Total Bilirubin 0.9 mg/dL (0.15-1.2); Total Protein 9.5 g/dL (6.6-8.7)
[2019-12-21] MEDS: FUROsemide 10 mg/mL SDV 4mL 40 MG IVP ×2 (06:46→19:31)
[2019-12-21 07:29] LABS: INR 1.27 (0.8-1.2)
[2019-12-21] MEDS: ipratropium-albuterol 3 mL Neb INHALATION ×3 (08:07→20:30)
[2019-12-21 08:53] LABS: T4 Total 7.7 mcg/dL (5.1-11.9)
[2019-12-21] MEDS: acetaminophen 325 mg Tablet 650 MG PO (09:09)
[2019-12-21] MEDS: pantoprazole DR 40 mg Tablet PO (09:10)
[2019-12-21] MEDS: atorvastatin 40 mg Tablet PO (09:10)
[2019-12-21] MEDS: clopidogrel 75 mg Tablet PO (09:10)
[2019-12-21] MEDS: metoprolol tartrate 25 mg Tablet 50 MG PO ×2 (09:10→17:01)
[2019-12-21] MEDS: aspirin 81 mg EC Tablet PO (09:11)
[2019-12-21] MEDS: potassium chloride ER 10 mEq Tablet 20 MEQ PO (09:11)
[2019-12-21] MEDS: losartan 50 mg Tablet 25 MG PO (09:11)
[2019-12-21] MEDS: levothyroxine 125 mcg Tablet PO (09:11)
[2019-12-21] MEDS: amlodipine 10 mg Tablet PO (09:11)
[2019-12-21] MEDS: piperacillin-tazobactam 3.375 GM in sodium chloride 0.9% (plus) 50 ML IV ×3 (09:12→23:06)
[2019-12-21 10:23] LABS: T3 Total 80 ng/dL (76-181)
--- NOTE | 2019-12-21 11:53 | P.PN_ITS ---
Subjective Subjective: Interval history: No acute events overnight. Patient is afebrile. No shortness of breath. Saturating more than 95% on room air. Hemodynamically stable. She feels much comfortable. Medications: Reviewed: Yes Vitals/I&O/Wt Last Vital Signs Temp 97.6 F 12/21/19 11:38 Pulse 74 12/21/19 11:38 Resp 16 12/21/19 11:38 BP 140/67 12/21/19 11:38 Pulse Ox 95 12/21/19 11:38 12/20/19 12/21/19 12/21/19 22:59 06:59 14:59 Intake Total 660 / 1240.000 170 / 1410.000 360 / 360 Output Total 400 / 1000 600 / 600 Balance 260 / 240.000 170 / 410.000 -240 / -240 Weight last 48 hrs Weight 71.532 kg Weight 73.573 kg Physical Exam Const: COMMON NORMALS: patient oriented x3 HENMT: COMMON NORMALS: normocephalic, atraumatic, hearing grossly normal bilaterally and external ears normal HEAD & SCALP: normocephalic and atraumatic EXTERNAL EAR: Yes external ears normal Eye: COMMON NORMALS: no scleral icterus GENERAL EYE: appearance normal, both eyes and all related structures Chest: COMMONS NORMALS: normal inspection of the chest and normal palpation of entire chest wall CHEST: Yes Symmetrical chest wall rise Resp: COMMON NORMALS: normal respiratory effort, No retractions, No use of accessory muscles and clear to auscultation bilaterally EFFORT & INSPECTION: Yes symmetric chest movement AUSCULTATION: clear to auscultation bilaterally OTHER: Decreased air entry in the right lower lung field. Cardio: COMMON NORMALS: regular rate, regular rhythm, S1 normal heart sound present, S2 normal heart sound present, No gallops present (Cardio), No murmurs present (Cardio), No rub (Cardio) and Peripheral pulses 2+ throughout RATE: regular rate RHYTHM: regular rhythm HEART SOUNDS: S1 normal heart sound present and S2 normal heart sound present PERIPHERAL PULSES: Peripheral pulses 2+ throughout GI: COMMON NORMALS: Normal to inspection, nondistended, normoactive bowel sounds present, Soft to palpation, non-tender, No hepatosplenomegaly present and no masses AUSCULTATION: Yes normoactive bowel sounds PALPATION: Yes Soft to palpation and Yes No hepatosplenomegaly present RECTAL EXAM: deferred Extremity: COMMON NORMALS: no clubbing, cyanosis or edema and no pedal edema Neuro: COMMON NORMALS: patient oriented x3 Data : 12/21/19 05:27 12/21/19 05:27 Micro: Microbiology 12/19/19 22:35 Urine Culture - Preliminary Urine,Voided 12/19/19 15:03 Blood Culture - Preliminary Blood NEGATIVE TO DATE 12/19/19 14:59 Blood Culture - Preliminary Blood NEGATIVE TO DATE A&P Assessment and plan (1) Pneumonia: Patient came in with chief complaint of shortness. P.E was ruled out. X- ray chest, and CT chest: Suggestive of pneumonic process. We will continue with Zosyn. Vancomycin was discontinued today. As initial cultures have remained negative. ( 12-18-12-20) Lactic Acid:3.5 Procal:0.46 Serial chest x-ray: Stable right pleural effusion, lateral basal infiltrate, consistent with pneumonia. Benton culture. Negative till this date. Status: Acute Qualifiers: Laterality: right Lung location: lower lobe of lung Pneumonia type: due to unspecified organism Qualified Code(s): J18.9 - Pneumonia, unspecified organism (2) Pleural effusion: Chronic Rt pleural effusion, likely secondary to longstanding heart failure (currently compensated)./PNA/Possible malignat effusion. Currently on Lasix 40 mg I.V Q.12 hours daily. Case discussed with Radiologist regarding possible thoracentesis.It is a high risk thoracentesis given the patient on Aspirin & Plavix and with h/o recent PCI to LAD. Status: Acute (3) Stented coronary artery: History of recent NSTEMI, status post PCI LAD. We will continue with aspirin and Plavix Status: Acute (4) Heart failure: Heart failure with reduced ejection fraction, compensated Continue Lasix 40 mg I.V every 12 hours daily Continue metoprolol Continue losartan 25 mg po daily. Assess intake output Daily weight Fluid restriction Status: Acute Qualifiers: Heart failure type: diastolic Heart failure chronicity: acute on chronic Qualified Code(s): I50.33 - Acute on chronic diastolic (congestive) heart failure (5) Hypercalcemia: Hypercalcemia of malignancy; continue to monitor serum calcium. Currently has no symptoms of hypercalcemia. Likely has failed bisphosphonate Can consider denosumab as outpatient( cost barrier ) Status: Acute (6) Multiple myeloma: She will follow oncology as an outpatient. Status: Acute (7) Hypothyroidism: Start levothyroxine at 125 mcg oral daily. TSH: 0.23 Status: Acute (8) Hypokalemia: Resolved Monitor Serum K Status: Acute (9) Anemia: Likely Anemia of inflammation. S/P 1 U PRBC Transfusion.Currently Hb : Stable Continue to monitor CBC. Status: Acute Additional A&P Information DVT PPX: Lovenox 40 mg sc daily Code Status : Full code Disposition: Home : Anticipated DC on monday Attestations Medical Necessity Statement*: Patient is in the hospital for the management of pneumonia. Coding Level of Care Code Acute Con[employer] for [facility] Fwd Diagnoses Pneumonia J18.9 Laterality: right Lung location: lower lobe of lung Pneumonia type: due to unspecified organism Pleural effusion J90 Stented coronary artery Z95.5 Heart failure I50.33 Heart failure type: diastolic Heart failure chronicity: acute on chronic Hypercalcemia E83.52 Multiple myeloma C90.00 Hypothyroidism E03.9 Hypokalemia E87.6 Anemia D64.9
[2019-12-21 14:30] LABS: Vancomycin Trough 10.6 ug/mL (10-15)
--- NOTE | 2019-12-21 15:15 | DCPLANNER ---
Pg 2 of IM updated and reviewed with pt. No questions. Copy provided
[2019-12-21] MEDS: vancomycin 1,000 MG in sodium chloride 0.9% 250 ML 250 MG IV (15:57)
--- NOTE | 2019-12-21 18:45 | PC.NURSE ---
Patient had uneventful shift, spent majority of shift in chair or sitting on SOB, tolerated well. Patient states she is feeling better. No needs identified at this time.
[2019-12-21] MEDS: enoxaparin 40 mg/0.4 mL Syringe SUBCUT (19:31)
[2019-12-22] VITALS (7 sets, daily range): BP systolic 114–144; BP diastolic 44–57; PULSE 66–88; RESP 18–22; TEMP 36.4–36.8; O2SAT 91–96
[2019-12-22] MEDS: ipratropium-albuterol 3 mL Neb INHALATION ×2 (02:09→10:48)
[2019-12-22] MEDS: FUROsemide 10 mg/mL SDV 4mL 40 MG IVP (07:53)
[2019-12-22] MEDS: levothyroxine 125 mcg Tablet PO (09:13)
[2019-12-22] MEDS: losartan 50 mg Tablet 25 MG PO (09:14)
[2019-12-22] MEDS: atorvastatin 40 mg Tablet PO (09:14)
[2019-12-22] MEDS: clopidogrel 75 mg Tablet PO (09:14)
[2019-12-22] MEDS: pantoprazole DR 40 mg Tablet PO (09:14)
[2019-12-22] MEDS: aspirin 81 mg EC Tablet PO (09:14)
[2019-12-22] MEDS: potassium chloride ER 10 mEq Tablet 20 MEQ PO (09:14)
[2019-12-22] MEDS: amlodipine 10 mg Tablet PO (09:14)
[2019-12-22] MEDS: metoprolol tartrate 25 mg Tablet 50 MG PO (09:14)
[2019-12-22] MEDS: piperacillin-tazobactam 3.375 GM in sodium chloride 0.9% (plus) 50 ML IV (09:15)
--- NOTE | 2019-12-22 12:16 | PC.NURSE ---
Patient reports SOB increased from yesterday she had a shower this am and the registered nursing professor applied lotion to help with skin softness and dry areas patient was notably SOB after shower recovered with rest upon RT entering room for this nurse notified that patient had some tight bronchial sounds patient was washed with wet rags to hopefully aide if patient was having some reaction to the smell of the lotion Dr Howard notified of patients concerns with Increased SOB and nervousness to go home no new instruction at this time
--- NOTE | 2019-12-22 13:53 | PC.NURSE ---
Patient discharge home at this time to be followed by home health patient provided discharge instructions and educated on new medications and diagnosis, patient verbalized understanding IV discontinued bandage applied min bleeding noted iv cath intact. patient assisted to wheel chair and take to POV by staff to meet with daughter,all belongings and discharge instructions in hands. Carleen. Daughter explained discharge instructions as well verbalization of all instructions noted.
--- NOTE | 2019-12-22 21:56 | P.DS_ITS ---
Discharge Providers Date of Admission: 12/18/19 17:34 Date of Discharge: December 22, 2019 Attending Provider at Admission: Gonzalez Howard MD Attending Provider at Discharge: Gonzalez Howard MD Primary Care Provider: Saul Nieto Jr, MD Diagnoses at Discharge Discharge Diagnosis (1) Pneumonia: Permanent problem details: Resolved Qualifiers: Laterality: right Lung location: lower lobe of lung Pneumonia type: due to unspecified organism Qualified Code(s): J18.9 - Pneumonia, unspecified organism (2) Pleural effusion: Permanent problem details: Chronic stable rt pleural effusion likely 2/2 to Decompensated HFrEF ,PNA.Improving (3) Stented coronary artery: (4) Heart failure: Permanent problem details: PCI TO LAD 11/2019 Qualifiers: Heart failure type: diastolic Heart failure chronicity: acute on c hronic Qualified Code(s): I50.33 - Acute on chronic diastolic (congestive) heart failure (5) Hypercalcemia: Permanent problem details: of malignancy likely bisphosphonate resistant.A candidate for denosumab (6) Multiple myeloma: (7) Hypothyroidism: (8) Hypokalemia: (9) Anemia: (10) Hypokalemia: Status: Acute Reason for Visit Reason for Visit: SOB Hospital Course Hospital Course: 84 year old female 84-year-old female with IgG kappa myeloma on chemotherapy, hypertension, type 2 diabetes,hypothyroidism, CAD S/P stent in LAD ( 11/2019) HFrEf ,peripheral neuropathy, degenerative arthritis,was admitted with c/o acute onset of SOB ,which was progressively worsening over the course of few days. She denied any, fever, chills, cough, chest pain, nausea, vomiting, constipation,diarrhea. In the ER she was worked up for acute onset of shortness of breath, CT angio chest was done PE was ruled out.CTA chest showed moderate sized right pleural effusion and tiny left pleural effusion. Bibasilar atelectasis more pronounced on the right. EKG: LVH with nonspecific ST-T changes. Given 1 dose of Zosyn in the ER. Troponin baseline: 356, 2H: 343, delta T: -12.3., NT proBNP: 38424.During this hospital saty she was managed for HAP as well mildly decompensated HFrEF.She was kept on Broad Spectrum ABX as well as on I.V diuresis.She responded well to the medical management.The possibility to drain rt pleural effusion which is likely 2/2 to decompensated HFrEF and PNA Less likely to be empyema or malignant pleural effusion was explored,but given her h/o recent PCI and she being on plavix.The procedure was deemed to be high risk.It was discussed with radiology as well and the opinion was same that it is a high risk procedure as she is on aspirin as well as plavix. This was explained to the patient daughter and she agreed with the plan to currently monitor the effusion and hope for resolution with diuresis as well as with improvement in PNA. Last xray chest done on showed , Increased small left pleural effusion and Stable small right pleural effusion.She was discharged on lasix 40 mg oral q12 h daily as well on levofloxacin 500 mg oral daily for 7 days.She was advised to do xray chest in 1 week and follow with her PCP.An appointment was also made for cradiology as well as pulmonary medicine.She was also set up for sleep study as she was desaturating while she was sleeping. At the time of discharge she was saturating well on room air. She was discharged in stable condition. Physical Exam Const: COMMON NORMALS: patient oriented x3 HENMT: COMMON NORMALS: normocephalic, atraumatic, hearing grossly normal bilaterally and external ears normal HEAD & SCALP: normocephalic and atraumatic EXTERNAL EAR: Yes external ears normal Eye: COMMON NORMALS: no scleral icterus GENERAL EYE: appearance normal, both eyes and all related structures Chest: COMMONS NORMALS: normal inspection of the chest and normal palpation of entire chest wall CHEST: Yes Symmetrical chest wall rise Resp: COMMON NORMALS: normal respiratory effort, No retractions, No use of accessory muscles and clear to auscultation bilaterally EFFORT & INSPECTION: Yes symmetric chest movement AUSCULTATION: clear to auscultation bilaterally Cardio: COMMON NORMALS: regular rate, regular rhythm, S1 normal heart sound present, S2 normal heart sound present, No gallops present (Cardio), No murmurs present (Cardio), No rub (Cardio) and Peripheral pulses 2+ throughout RATE: regular rate RHYTHM: regular rhythm HEART SOUNDS: S1 normal heart sound present and S2 normal heart sound present PERIPHERAL PULSES: Peripheral pulses 2+ throughout GI: COMMON NORMALS: Normal to inspection, nondistended, normoactive bowel sounds present, Soft to palpation, non-tender, No hepatosplenomegaly present and no masses AUSCULTATION: Yes normoactive bowel sounds PALPATION: Yes Soft t o palpation and Yes No hepatosplenomegaly present RECTAL EXAM: deferred Extremity: COMMON NORMALS: no clubbing, cyanosis or edema and no pedal edema Neuro: COMMON NORMALS: patient oriented x3 Discharge Data Data Completed and Pending: Completed Studies During Hospitalization Category Date Time Status CT angio chest PE protcl [id number] Stat Cat Scan 12/18/19 15:49 Completed XR chest 1V blanca ble [id number] Routine Exams 12/20/19 06:36 Completed XR chest 1V blanca ble [id number] Urgent Exams 12/18/19 14:34 Completed Vitals: Last Vital Signs Temp 97.6 F 12/22/19 13:13 Pulse 80 12/22/19 13:13 Resp 18 12/22/19 13:13 BP 144/57 12/22/19 13:13 Pulse Ox 95 12/22/19 13:13 Discharge Plan Discharge Patient Disposition: Home Health Service Condition: Stable Prescriptions: New levothyroxine 125 mcg capsule 125 mcg PO DAILY Qty: 30 RF: 0 levofloxacin 500 mg tablet 500 mg PO DAILY 7 Days RF: 0 Continued acetaminophen [Tylenol 8 Hour] 650 mg tablet extended release 650 mg PO Q12H RF: 0 Complete Multivitamin Tablet 1 tab PO DAILY RF: 0 sennosides-docusate sodium [Senna Plus] 8.6-50 mg tablet 1 tab-cap PO DAILY RF: 0 pantoprazole 40 mg tablet,delayed release (DR/EC) 40 mg PO DAILY RF: 0 aspirin 81 mg Tablet,Delayed Release (Dr/Ec) 81 mg PO DAILY Qty: 30 RF: 0 amlodipine 10 mg Tablet 10 mg PO DAILY Qty: 30 RF: 0 atorvastatin 40 mg Tablet 40 mg PO DAILY Qty: 30 RF: 0 isosorbide mononitrate 20 mg Tablet 15 mg PO DAILY Qty: 30 RF: 0 clopidogrel 75 mg Tablet 75 mg PO DAILY Qty: 30 RF: 0 methylprednisolone [Medrol (Booker)] 4 mg tablets,dose pack See Rx Instructions .ROUTE .COMPLEX Qty: 21 RF: 0 ipratropium-albuterol 20-100 mcg/actuation mist 1 puff INHALATION Q6H 15 Days Qty: 40 RF: 0 Flovent HFA 44 mcg/actuation HFA aerosol inhaler 1 inh INHALATION BID Qty: 10.6 RF: 0 furosemide 40 mg Tablet 40 mg PO BID Qty: 0 RF: 0 metoprolol tartrate 25 mg tablet 50 mg PO BID Qty: 180 RF: 3 Discontinued levothyroxine [Levoxyl] 100 mcg Tablet 200 mcg PO DAILY Qty: 30 RF: 0 No Action potassium chloride 20 mEq tablet extended release 20 meq PO BID MDD twice a day for 5 days 30 Days Qty: 60 RF: 3 Discharge Orders: Discharge Order (Routine); Ordered 12/22/19 Ordered By: Gonzalez Howard Other Ambulatory Orders: Sleep Study/Titration (Routine) Timeframe: 1 Day Location: None Selected Ordered By: Gonzalez Howard Referrals: [facility] [Outside] Remington Del Real MD [Physician] - 2 weeks ([facility] will be calling to schedule a pulmonology follow up with Dr. Del Real to be seen in 2 weeks. If you don't hear from them by Monday, please give them a call. Thank you) Kelly Parker MD [Physician] - 12/26/19 9:30 am (Please keep the appointment you already have scheduled with Dr. Parker on December 25 at 9:30am.) Saul Nieto Jr, MD [Primary Care Provider] - 4-7 days ([facility] or [facility] will be calling to schedule a hospital follow up to be seen in 4 to 7 days. If you don't hear from them by Monday afternoon, please give them a call. Thank you) Discharge Diet: Cardiac Discharge Activity: Increase activity as tolerated Patient Instructions: Levothyroxine (By mouth), Levofloxacin (By mouth), Dyspnea (GEN), Pneumonia - Bacterial Activity Restrictions/Additional Instructions: Patient will need outpatient sleep study for for possible sleep apnea. Patient will follow with xray chest in 1 week for rt pleural effusion evaluation,with her pcp. Discharge Date/Time: 12/22/19 14:00 Discharge Attestations Time Spent in Discharge Care*: greater than 30 min Specific Discharge Activities: Specific discharge activities: educating patient, educating and/or supporting family/caregiver, discussing with pcp/other providers, discussing with returned case inspector/social workers/dc planners, documenting/other paperwork and evaluating patient/reviewing data Status at Discharge: Cognitive status at discharge: cognitively intact , Behavioral status at discharge: cooperative , Functional status at discharge: independent ambulation Overall status at discharge: patient is back to baseline Quality Metrics Clinical Quality Measures During this hospital stay, did patient experience: None Coding Level of Care Code Acute Coater for [facility] Fwd Diagnoses Pneumonia J18.9 Laterality: right Lung location: lower lobe of lung Pneumonia type: due to unspecified organism Pleural effusion J90 Stented coronary artery Z95.5 Heart failure I50.33 Heart failure type: diastolic Heart failure chronicity: acute on chronic Hypercalcemia E83.52 Multiple myeloma C90.00 Hypothyroidism E03.9 Hypokalemia E87.6 Anemia D64.9 Hypokalemia E87.6
== END 2019-12-22 14:00 | disposition home health service (06) | DRG 193 ==
LOC: ER 14:12 → CSU 18:17
PROVIDERS: Admitting Provider Internal Medicine; Emergency Provider Family Medicine; PCP Family Medicine; Visit Provider Internal Medicine
DX: J18.9 Pneumonia, unspecified organism (principal); I50.33 Acute on chronic diastolic (congestive) heart failure; C90.00 Multiple myeloma not having achieved remission; Z95.5 Presence of coronary angioplasty implant and graft; E83.52 Hypercalcemia; E03.9 Hypothyroidism, unspecified; E87.6 Hypokalemia; D64.9 Anemia, unspecified; I11.0 Hypertensive heart disease with heart failure; Z79.899 Other long term (current) drug therapy; E11.42 Type 2 diabetes mellitus with diabetic polyneuropathy; Z79.82 Long term (current) use of aspirin; Z79.02 Long term (current) use of antithrombotics/antiplatelets; I25.10 Atherosclerotic heart disease of native coronary artery without angina pectoris; E78.5 Hyperlipidemia, unspecified; I25.2 Old myocardial infarction
CPT/HCPCS: 12345; 36415; 36430; 71045; 71275; 80053; 80202; 82550; 82553; 83605; 83735; 83880; 84100; 84145; 84436; 84439; 84443; 84480; 84481; 84484; 85025; 85378; 85610; 85730; 86850; 86900; 86920; 87040; 87070; 87086; 87426; 87804; 93005; 94640; 96372; 96375; 99284; J1650; J1940; J2543; J2920; J3370; J3475; J3535; J7030; J7050; P9016; Q9967

== ENCOUNTER 2019-12-24 11:45 | Outpatient (CLI) | payer MEDICARE, SELFPAY ==
[2019-12-24 13:20] LABS: Basophils % 0.6 %; Eosinophils # 0.1 10^3/uL (0.0-0.8); Eosinophils % 1.3 %; Hematocrit 34.6 % (37.0-47.0); Hemoglobin 10.5 g/dL (11.5-15.3); Lymphocytes # 1.3 10^3/uL (0.8-4.8); Lymphocytes % 24.5 %; Mean Corpuscular HGB Conc 30.3 g/dL (30.0-36.0); Mean Corpuscular Hemoglobin 31.2 pg (28.0-34.0); Mean Corpuscular Volume 102.7 fL (81-99); Mean Platelet Volume 11.4 fL (7.4-10.4); Monocytes # 0.8 10^3/uL (0.2-0.9); Monocytes % 14.4 %; Neutrophils # 3.14 10^3/uL (1.8-7.7); Neutrophils % 57.7 %; Nucleated Red Blood Cells % 0 %; Platelet Count 126 10^3/cmm (130-400); Red Blood Count 3.37 10^6/uL (4.1-5.3); Red Cell Distribution Width 18.1 % (12.1-15.1); White Blood Count 5.4 10^3/uL (4.0-10.0)
[2019-12-24 13:41] LABS: Blood Urea Nitrogen 26 mg/dL (8-23); Calcium 11.2 mg/dL (8.5-10.5); Carbon Dioxide 24 mmol/L (22-29); Chloride 99 mmol/L (98-107); Glucose 182 mg/dL (65-115); Osmolality Calculated 285 mOsm/kg (285-295); Sodium 133 mmol/L (136-145)
[2019-12-24 13:42] LABS: Anion Gap 13.2 (5-19); Potassium 3.2 mmol/L (3.5-5.1)
== END 2019-12-24 11:46 | disposition home or self-care (01) ==
LOC: ONCMED 13:33
PROVIDERS: PCP Family Medicine; Visit Provider Internal Medicine Medical Oncology
DX: Z51.81 Encounter for therapeutic drug level monitoring (principal); Z79.899 Other long term (current) drug therapy
CPT/HCPCS: 36415; 80048; 85025

== ENCOUNTER 2019-12-31 09:27 | Outpatient (CLI) | payer MEDICARE, SELFPAY ==
[2019-12-31 10:24] LABS: Basophils % 0.3 %; Eosinophils # 0.1 10^3/uL (0.0-0.8); Eosinophils % 2.3 %; Lymphocytes # 2.7 10^3/uL (0.8-4.8); Lymphocytes % 45.7 %; Mean Corpuscular HGB Conc 30.3 g/dL (30.0-36.0); Mean Corpuscular Hemoglobin 30.8 pg (28.0-34.0); Mean Corpuscular Volume 101.5 fL (81-99); Mean Platelet Volume 10.7 fL (7.4-10.4); Monocytes # 1.2 10^3/uL (0.2-0.9); Monocytes % 20.3 %; Neutrophils # 1.77 10^3/uL (1.8-7.7); Neutrophils % 29.7 %; Nucleated Red Blood Cells % 0 %; Platelet Count 79 10^3/cmm (130-400); Red Blood Count 3.25 10^6/uL (4.1-5.3); Red Cell Distribution Width 18.5 % (12.1-15.1)
[2019-12-31 10:48] LABS: Slide Review Slide Review Perform
[2019-12-31 10:54] LABS: Anion Gap 13.2 (5-19); Blood Urea Nitrogen 15 mg/dL (8-23); Calcium 11.9 mg/dL (8.5-10.5); Carbon Dioxide 20 mmol/L (22-29); Chloride 106 mmol/L (98-107); Glucose 133 mg/dL (65-115); Osmolality Calculated 283 mOsm/kg (285-295); Potassium 4.2 mmol/L (3.5-5.1); Sodium 135 mmol/L (136-145)
== END 2019-12-31 09:28 | disposition home or self-care (01) ==
LOC: ONCMED 14:08
PROVIDERS: PCP Family Medicine; Visit Provider Internal Medicine Medical Oncology
DX: Z51.81 Encounter for therapeutic drug level monitoring (principal); Z79.899 Other long term (current) drug therapy
CPT/HCPCS: 80048; 85025

== ENCOUNTER 2020-01-02 05:58 | Outpatient (CLI) | payer MEDICARE, SELFPAY ==
--- NOTE | 2020-01-04 18:16 | ONC FU_ITS ---
Dr. Muñoz Patient Follow-Up Note Patient: [facility] #: [id number]: [id number] Dicatated By: Kris Muñoz M.D.Date of Visit:Jan 02, 2020 Onc Med Follow-up/Prog Note Chief Complaint: Myeloma. History of Present Illness: This is an 84 year-old woman with IgG kappa myeloma. She had presented to Dr. Nieto on 10/24/2017 with complaints of dizziness/lightheadedness, fatigue, and anorexia. She reported that at times she felt like passing out and having to lie down. She reported having problems with memory and she complained that she had been sleeping a lot. Her CBC showed low hemoglobin at 8.8 g, white blood cell count borderline at 4300 and platelet count mildly decreased at 103,000. Her comprehensive metabolic profile showed elevated BUN and creatinine at 23 and 1.42 mg/dL and significantly elevated serum calcium at 14.5 mg/dL with albumin low at 2.5 g/dL. The calculated serum globulin was significantly elevated at 7.9 g/dL. Bone marrow aspiration/biopsy on 10/27/2017 showed hypercellular marrow with 63% plasma cells, consistent with myeloma. At that time, she was given an infusion of sodium pamidronate for the hypercalcemia, and she also was given dexamethasone 40 mg daily for 4 days. Skeletal survey on 10/27/2017 showed evidence of diffuse bone demineralization but without evidence of large osteolytic lesion. Subcentimeter lucent foci in the [place] bilaterally were felt to be consistent with osteoporosis, myelomatous lesions, or metastatic disease. Serum protein electrophoresis and 11/20/2017 showed IgG kappa paraprotein quantitating at 4.1 g/dL. The free light chain assay showed elevated free kappa light chain at 228.24 mg/L with elevated kappa/lambda ratio at 17.40. She returned on 11/16/2017 to begin treatment with Velcade/Revlimid/dexamethasone. I opted to use a weekly Velcade regimen on a 21/28 day schedule. Due to her age and renal function, the Revlimid was initiated at a reduced dosage of 10 mg daily for 21 days. The dexamethasone was reduced to 20 mg weekly. At that time, her calcium had become elevated again at 10.3 mg/dL with albumin 2.2 g/dL. Her renal function had improved with creatinine down to 1.0 mg/dL. As such, she was given zoledronic acid 3.5 mg by IV infusion. On 11/20/2017 she came in with a 2-day history of fever and chills. A specific source of infection was not identified other than her chest x-ray was suspicious for possible pneumonia. She was treated empirically with Levaquin, I did opt to put her Revlimid on hold, as she also was having diarrhea at that point. Her follow-up CBC on 11/23/2017 showed further decline in hemoglobin to 6.4 g, and the following day she was transfused 2 units of PRBC. She did receive her day 8 Velcade, and she was able to return for day 15 Velcade on 11/29/2017. Hemoglobin at that point was adequate at 9.9 g. She then continued her 2nd cycle on 12/13/2017 with the Revlimid omitted. The Velcade was again administered weekly for 3 weeks, and the dexamethasone was changed to 20 mg twice weekly. A repeat protein electrophoresis on 12/25/2017 showed significant improvement with the M protein quantitating at 0.73 g/dL. She then continued with cycle 3 of Velcade/dexamethasone on 01/11/2018, with cycle 4 on 02/07/2018, with cycle 5 on 03/06/2018, and with cycle 6 on 04/04/2018. Her repeat serum protein electrophoresis on 05/01/2018 showed 2 monoclonal protein bands which together quantitated at 0.21 g/dL compared to 0.31 g/dL on 03/06/2018. The serum free light chain assay showed normal kappa light chain at 1.28 mg/dL and normal lambda light chain at 1.52 mg/dL with the kappa/lambda ratio normal at 0.8421. She was seen for a follow-up visit on 05/02/2018, and she then began maintenance Revlimid at 5 mg daily. As of 05/29/2018 the Revlimid was put on hold due to worsening skin eruption. The skin eruption had initially continued to worsen somewhat after stopping the Revlimid, but it then gradually resolved. I had seen her for a follow-up visit on 07/17/2018. At that point she had only minimal residual M protein. She appeared stable clinically, and given the side effects she experienced with her treatment, I opted to just follow her on observation/expectant management. Her other medical illnesses include hypertension, type II diabetes with peripheral neuropathy, and degenerative arthritis. She is a nonsmoker. INTERIM HISTORY: As of March 2019 there was a significant increase in her M protein and in her kappa free light chain. She had become mildly anemic. It was clear at that point that her myeloma was progressing, and we opted to proceed to a trial of second line therapy with daratumumab in combination with carfilzomib and dexamethasone. She began her day 1 treatment on 05/14/2019, which she tolerated well. However, following her day 2 treatment she was admitted to the hospital with acute respiratory distress/flash pulmonary edema. Her clinical course was complicated by non-ST elevation myocardial infarction, acute renal injury, and thrombocytopenia. She did have a good recovery, and she was then followed on observation/expectant management. As of July 2019 her M protein had increased significantly, to 2.65 g/dL. At that point she had become mildly anemic, hemoglobin 10.4 g. Her renal function, though, remained normal with creatinine 0.78 mg/dL. Restaging PET/CT on 08/29/2019 was felt to be likely a negative examination with no evidence for osseous or soft tissue tumor involvement. There were findings which were felt to most likely reflect prominent arthritic changes. With the significant increase in her M protein, she started 3rd line treatment with pomalidomide in combination with ixazomib and dexamethasone, cycle 1 beginning on 09/13/2019. The pomalidomide was put on hold due to side effects, the most significant being fatigue, fever, and just not feeling good generally. As of her follow-up visit on 09/30/2019 the ixazomib was also put on hold. She then continued treatment with dexamethasone 20 mg 4 days a week. I had seen her for a follow-up visit on 10/15/2019. At that time she planning to undergo left total hip arthroplasty. The procedure had been scheduled for 10/30/2019. As such, I had stopped her steroid therapy. However, her hip surgery ended up being canceled, because of anemia and hypercalcemia. I had seen her for a follow-up visit on 11/19/2019. At that time I had discussed the possibility of continuing further treatment either with melphalan/prednisone or with belantamab [id number]. She was significantly anemic with hemoglobin 8.5 g. Renal function was still normal with creatinine 0.81 mg/dL, but calcium was significantly elevated at 12.3 mg/dL. She was given an infusion of sodium pamidronate. Her further clinical course was complicated by hospital admission for cardiac ischemia requiring angioplasty with stent placement to the LAD. She had to subsequent hospitalizations for congestive heart failure/pneumonia. She was discharged home on 12/22/2019. During that time, she was transfused on 2 different occasions. She is seen now for a follow-up visit. She has very limited activity. She says she feels wiped out. Her ECOG score is 3. Her appetite is way down. She has lost weight. She has no fever or night sweats. She is having some shortness of breath, but her breathing is better now than it was. She has just a little bit of cough. She does not complain of chest pain. She was having constipation, that is also better now. She has no other GI or complaints. She is having pain in her back and in her left hip and leg. She also has pain associated with a decubitus skin ulceration in the sacral area. She has neuropathy in her legs and feet. Medications: Acetaminophen Tablet Oral PRN, AmLODIPine Besylate 1 Tablet (of 10 mg) Oral every am, Aspirin 1 (325 mg) Tablet Oral daily, Atorvastatin Calcium 1 Tablet (of 40 mg) Oral daily, Clopidogrel Bisulfate 1 Tablet (of 75 mg) Oral daily, Flovent HFA 1 Puff(s) (of 110 mcg/act) Aerosol Inhalation b.i.d., Furosemide 1 Tablet (of 40 mg) Oral b.i.d., Ipratropium-Albuterol 1 Puff(s) (of 20-100 mcg/act) Aerosol, solution Inhalation q 6 hours PRN, Isosorbide Mononitrate 1 Tablet (of 15 mg) Oral daily, Metoprolol Succinate ER 1 Tablet (of 50 mg) Tablet SR 24 HR Oral b.i.d., Multivitamin Women 50+ 1 Tablet Oral daily, Pantoprazole Sodium 1 Tablet (of 40 mg) Tablet, enteric coated Oral daily, PreserVision AREDS 2 Tablet Oral daily, Senna S 1 - 2 Tablet (of 8.6-50 mg) Oral daily Allergies: Carfilzomib, Daratuzumab, EKG patches, Lisinopril, Pomalidomide, and revlimd. Review of Systems: Constitutional - She is feeling somewhat better after her hospital stays, but her energy is still poor. Her appetite has decreased and her weight is down 15 pounds from last visit. No fever, night sweats, or hot flashes. ECOG score is 3, ENMT - No sinus congestion/drainage. No mouth sores. No sore throat or difficulty swallowing, Hematologic/Lymphatic - She bruises easily. She has been having epistaxis, Respiratory - She has shortness of breath, but her breathing is better than it was. She has a little bit of cough. No pleuritic pain or hemoptysis, Cardiovascular - No angina pain. No palpitations, Gastrointestinal - No nausea or vomiting. No heartburn or acid reflux. No diarrhea. She was having some constipation. No blood in the stool or black stools, Genitourinary (F) - No dysuria or hematuria. No urinary frequency. No urgency or incontinence, Musculoskeletal - She has some pain in back and in her left hip and leg, Integumentary - She has a pressure sore in her sacral area. She is having significant discomfort with it, Neurologic - No headache or dizziness. She has neuropathy in her legs and feet, Psychiatric - No anxiety or depression. She is not sleeping well. Vital Signs: Performed on Jan 02, 2020 11:38 Height - 66.00 in Weight - 153.0 lbs (LOW) BSA - 1.78 sq.m BMI - 24.70 Temperature - 99.5 F (HIGH) Pulse - 79 /min Respiration - 16 /min BP - 127/48 mm(hg) O2 Sat - 97 % Pain - 0 Physical Examination: Constitutional - She appears generally weak, Eyes - Sclerae nonicteric. Conjunctivae clear, ENMT - No lesions noted in the oral cavity, Hematologic/Lymphatic - No cervical, clavicular, or axillary adenopathy, Respiratory - Lungs sound clear but breath sounds are diminished at the left base, Cardiovascular - Heart rhythm is irregular. There is a II/ systolic murmur. There is no gallop or rub noted, Abdomen - Soft. Liver and spleen are not enlarged. There is no abdominal mass or ascites noted and there is no inguinal adenopathy, Extremities - No edema, Integumentary - There is a sacral decubitus skin ulceration, Neurologic - No focal neurologic deficits noted. Lab/Imaging: Test performed on Dec 24, 2019 11:45 Sodium 133 mmol/L Potassium 3.2 mmol/L Chloride 99 mmol/L CO2 24 mmol/L Anion Gap 13.2 Glucose 182 mg/dL BUN 26 mg/dL Creatinine 0.9 mg/dL Cr Clearance (Est) 56.9800 mL/min Calcium 11.2 mg/dL Osmolality - Calculated 285 mOsm/kg WBC 5.4 10 3/uL RBC 3.37 10 6/uL HGB 10.5 g/dL HCT 34.6 % MCV 102.7 fL MCH 31.2 pg MCHC 30.3 g/dL RDW 18.1 % Platelet Count 126 10 3/cmm MPV 11.4 fL Neutrophils 3.14 10 3/uL Lymphocytes 1.3 10 3/uL Monocytes 0.8 10 3/uL Eosinophils 0.1 10 3/uL Basophils 0.0 10 3/uL Neutrophil % 57.7 % Lymphocyte % 24.5 % Monocyte % 14.4 % Eosinophil % 1.3 % Basophils % 0.6 % NRBC % 0 % Impression: 1. Patient with IgG kappa myeloma. Her bone marrow aspiration/biopsy on 10/27/2017 was hypercellular with 63% plasma cells. 2. She had anemia, renal dysfunction, and symptomatic hypercalcemia at initial presentation. Her skeletal survey showed diffuse bone demineralization, but without evidence of any large osteolytic lesions. Her other medical illnesses include: 3. Hypertension. 4. Type II diabetes. 5. Peripheral neuropathy. 6. Degenerative arthritis. 7. She has a history of nephrolithiasis. She had some improvement on initial treatment with sodium pamidronate and 4 days of high-dose dexamethasone. She then began treatment with Velcade/Revlimid/dexamethasone on 11/16/2017. The Revlimid was initiated at a reduced dosage of 10 mg daily on a 21/ day schedule with the Velcade and dexamethasone administered weekly. At that time she also received an infusion of zoledronic acid. Her 1st cycle of treatment was complicated by a febrile illness and diarrhea. She also developed pancytopenia with worsening anemia, requiring PRBC transfusion. I was uncertain to what extent her problems may have been due to the treatment or to the underlying myeloma. Her Revlimid was put on hold at day 4. She was then able to continue treatment with Velcade and dexamethasone. As of 04/04/2018 she began her 6th cycle of treatment. Her repeat serum protein electrophoresis on 05/01/2018 showed 2 monoclonal bands which together quantitated at 0.21 g/dL. The serum free light chain assay showed normal kappa/lambda ratio. Her hemoglobin was stable at 11.2 g. As of her follow-up visit on 05/02/2018 she was still having some fatigue, but she otherwise appeared stable clinically. She then began maintenance Revlimid at 5 mg daily. It was put on hold as of 05/29/2018 due to worsening skin eruption. The skin eruption subsequently did resolve, though gradually. As of her follow-up visit in June 2018 she had only a very small amount of residual M protein, and she appeared stable clinically. Given the side effects she had experienced with her treatment, I opted to just follow her on observation/expectant management. During her subsequent follow-up her clinical status initially remained stable. However, as of her follow-up in March 2019 there had been a slight drop in her hemoglobin/hematocrit levels, and her protein electrophoresis studies showed a significant increase in her M protein, to 2.11 g/dL, and a significant increase in the kappa free light chain, to 105.21 mg/L, with the kappa/lambda ratio elevated at 8.65. This was obviously consistent with progression of the myeloma. On 05/14/2019 she began a trial of second line therapy with daratumumab in combination with carfilzomib and dexamethasone. Following her day 2 treatment she required hospitalization for acute respiratory distress/pulmonary edema. Her clinical course was complicated by acute renal injury and thrombocytopenia. She did have a good recovery. Following hospitalization April she did show gradual improvement in her performance status. However, by July 2019 her M protein had increased significantly, to 2.65 g/dL. Her restaging PET/CT showed no obvious involvement with myeloma. However, she was mildly anemic, and with the increasing M protein she then proceeded to 3d line treatment with pomalidomide in combination with ixazomib and dexamethasone. She tolerated the pomalidomide very poorly, and it was stopped early into the first cycle. As of her follow-up visit on 09/30/2019 the ixazomib was also put on hold. She then continued treatment with dexamethasone. During that time she had worsening pain in her left hip due to underlying degenerative disease. He became severe enough to significantly limit her activity, and at that point she was scheduled for left total hip arthroplasty. The procedure, though, and ended up being canceled due to anemia and hypercalcemia. I had seen her for a follow-up visit on 11/19/2019. She was significantly anemic with hemoglobin 8.5 g. Her renal function was still adequate with creatinine 0.81 mg/dL, but her calcium was significantly elevated at 12.3 mg/dL, consistent with progression of her myeloma. She was given an infusion of sodium pamidronate for the hypercalcemia. Her further clinical course was complicated by a hospital admission for cardiac ischemia, requiring angioplasty with stent to the LAD. She then had to additional hospitalizations for pneumonia/congestive heart failure. During that time she had been transfused on 2 occasions. She was discharged home on 12/22/2019. She has very marginal performance status. She continues to have anemia and she now has moderately severe thrombocytopenia. Her renal function remains adequate, but she is showing a recurrence of hypercalcemia. Plan: I reviewed options for her further, 1 of which is just to continue with symptomatic/supportive care. In that case her prognosis is going to be very poor. She is still interested, though, and attempting a trial of therapy with melphalan/prednisone. I did review anticipated side effects which may include nausea, fatigue, and low blood counts, among others. Treatment will be started as soon as we have verified insurance coverage. I anticipate that we will be sometime next week. In the meantime, she will be given 60 mg of sodium pamidronate by IV infusion today. Signed By: Kris Muñoz M.D. <<Signature on File>>
== END 2020-01-02 05:59 | disposition home or self-care (01) ==
LOC: ONCMED 06:00
PROVIDERS: PCP Family Medicine; Visit Provider Internal Medicine Medical Oncology
DX: C90.00 Multiple myeloma not having achieved remission (principal); E83.52 Hypercalcemia; I10 Essential (primary) hypertension; E11.42 Type 2 diabetes mellitus with diabetic polyneuropathy; M19.90 Unspecified osteoarthritis, unspecified site; Z87.442 Personal history of urinary calculi
CPT/HCPCS: 96365; 96366; 99214; J2430; J7040

== ENCOUNTER 2020-01-21 10:10 | Outpatient (RCR) | payer MEDICARE, SELFPAY ==
[2020-01-07 13:32] LABS: Basophils % 0.4 %; Eosinophils # 0.1 10^3/uL (0.0-0.8); Eosinophils % 1.8 %; Hematocrit 28.4 % (37.0-47.0); Hemoglobin 8.6 g/dL (11.5-15.3); Lymphocytes # 2.9 10^3/uL (0.8-4.8); Lymphocytes % 52.4 %; Mean Corpuscular HGB Conc 30.3 g/dL (30.0-36.0); Mean Corpuscular Volume 102.5 fL (81-99); Mean Platelet Volume 10.5 fL (7.4-10.4); Monocytes # 1.2 10^3/uL (0.2-0.9); Monocytes % 20.9 %; Neutrophils # 1.31 10^3/uL (1.8-7.7); Neutrophils % 23.4 %; Nucleated Red Blood Cells % 0 %; Platelet Count 94 10^3/cmm (130-400); Red Blood Count 2.77 10^6/uL (4.1-5.3); Red Cell Distribution Width 18.9 % (12.1-15.1); White Blood Count 5.6 10^3/uL (4.0-10.0)
[2020-01-07 14:00] LABS: Anion Gap 13.1 (5-19); Blood Urea Nitrogen 15 mg/dL (8-23); Calcium 12.7 mg/dL (8.5-10.5); Carbon Dioxide 21 mmol/L (22-29); Chloride 104 mmol/L (98-107); Glucose 116 mg/dL (65-115); Osmolality Calculated 280 mOsm/kg (285-295); Potassium 4.1 mmol/L (3.5-5.1); Sodium 134 mmol/L (136-145)
[2020-01-07 15:37] LABS: Slide Review Slide Review Perform
[2020-01-14 13:38] LABS: Basophils % 0.3 %; Eosinophils # 0.1 10^3/uL (0.0-0.8); Eosinophils % 1.2 %; Hematocrit 26.6 % (37.0-47.0); Lymphocytes # 4.1 10^3/uL (0.8-4.8); Lymphocytes % 63.4 %; Mean Corpuscular HGB Conc 30.1 g/dL (30.0-36.0); Mean Corpuscular Hemoglobin 31.1 pg (28.0-34.0); Mean Corpuscular Volume 103.5 fL (81-99); Mean Platelet Volume 10.8 fL (7.4-10.4); Monocytes % 15.9 %; Neutrophils # 1.19 10^3/uL (1.8-7.7); Neutrophils % 18.4 %; Nucleated Red Blood Cells % 0 %; Platelet Count 78 10^3/cmm (130-400); Red Blood Count 2.57 10^6/uL (4.1-5.3); Red Cell Distribution Width 19.7 % (12.1-15.1); White Blood Count 6.5 10^3/uL (4.0-10.0)
[2020-01-14 14:11] LABS: Slide Review Slide Review Perform
[2020-01-14 14:15] LABS: Anion Gap 13.6 (5-19); Blood Urea Nitrogen 17 mg/dL (8-23); Calcium 13.2 mg/dL (8.5-10.5); Carbon Dioxide 19 mmol/L (22-29); Chloride 102 mmol/L (98-107); Glucose 99 mg/dL (65-115); Osmolality Calculated 272 mOsm/kg (285-295); Potassium 4.6 mmol/L (3.5-5.1); Sodium 130 mmol/L (136-145)
[2020-01-14 16:14] LABS: Immunoglobulin IGA < 50 mg/dL (70-400); Immunoglobulin IGG 8316 mg/dL (700-1600); Immunoglobulin IGM < 25 mg/dL (40-230)
[2020-01-15 15:09] LABS: KAPPA LIGHT CHAIN, FREE, SERUM 404.5 mg/L (3.3-19.4); KAPPA/LAMBDA LIGHT CHAINS FREE 183.86 (0.26-1.65); LAMBDA LIGHT CHAIN, FREE, SERU 2.2 mg/L (5.7-26.3)
[2020-01-16 10:08] LABS: ABNORMAL PROTEIN BAND 1 7.4 g/dL (NONE DETECTED); ALBUMIN 3.2 g/dL (3.8-4.8); ALPHA 1 GLOBULIN 0.3 g/dL (0.2-0.3); ALPHA 2 GLOBULIN 0.6 g/dL (0.5-0.9); BETA 1 GLOBULIN 0.3 g/dL (0.4-0.6); BETA 2 GLOBULIN 0.2 g/dL (0.2-0.5); GAMMA GLOBULIN 7.4 g/dL (0.8-1.7)
[2020-01-16] MEDS: acetaminophen 325 mg Tablet 650 MG PO (12:45)
[2020-01-16] MEDS: sodium chloride 0.9% 250 ML 999 ML IV (13:45)
[2020-01-16] MEDS: zoledronic acid 4 MG in sodium chloride 0.9% (100 ml) 100 ML 420 MG IV (13:48)
[2020-01-16 14:10] VITALS: BP 133/56; PULSE 73; RESP 18; TEMP 37.1; O2SAT 96
[2020-01-16 14:25] VITALS: BP 135/62; BP 135/64; PULSE 74; PULSE 76; RESP 18; TEMP 37.1; TEMP 37.2; O2SAT 95; O2SAT 96
[2020-01-16 14:40] VITALS: BP 135/62; PULSE 76; RESP 18; TEMP 37.2; O2SAT 95
[2020-01-16 16:00] VITALS: BP 138/55; PULSE 77; RESP 18; TEMP 36.1
[2020-01-16 16:15] VITALS: BP 138/56; PULSE 71; RESP 18; TEMP 36.2; O2SAT 96
[2020-01-16] MEDS: diphenhydrAMINE 25 mg Capsule PO (18:01)
[2020-01-16] MEDS: FUROsemide 10 mg/mL SDV 2mL 20 MG IV (18:01)
--- NOTE | 2020-01-19 21:09 | ONC FU_ITS ---
Noa [facility]a Patient Note Patient: Alta Red Unit #: [id number]: [id number] Dictated By: Otto SueDate of Visit: Jan 13, 2020 Onc MED Follow-Up/Prog Note Chief Complaint: Myeloma. History of Present Illness: Mrs Red is an 84 year-old woman with IgG kappa myeloma. She had presented to Dr. Nieto on 10/24/2017 with complaints of dizziness/lightheadedness, fatigue, and anorexia. She reported that at times she felt like passing out and having to lie down. She reported having problems with memory and she complained that she had been sleeping a lot. Her CBC showed low hemoglobin at 8.8 g, white blood cell count borderline at 4300 and platelet count mildly decreased at 103,000. Her comprehensive metabolic profile showed elevated BUN and creatinine at 23 and 1.42 mg/dL and significantly elevated serum calcium at 14.5 mg/dL with albumin low at 2.5 g/dL. The calculated serum globulin was significantly elevated at 7.9 g/dL. Bone marrow aspiration/biopsy on 10/27/2017 showed hypercellular marrow with 63% plasma cells, consistent with myeloma. At that time, she was given an infusion of sodium pamidronate for the hypercalcemia, and she also was given dexamethasone 40 mg daily for 4 days. Skeletal survey on 10/27/2017 showed evidence of diffuse bone demineralization but without evidence of large osteolytic lesion. Subcentimeter lucent foci in the Femara bilaterally were felt to be consistent with osteoporosis, myelomatous lesions, or metastatic disease. Serum protein electrophoresis and 11/20/2017 showed IgG kappa paraprotein quantitating at 4.1 g/dL. The free light chain assay showed elevated free kappa light chain at 228.24 mg/L with elevated kappa/lambda ratio at 17.40. She returned on 11/16/2017 to begin treatment with Velcade/Revlimid/dexamethasone. Dr Muñoz opted to use a weekly Velcade regimen on a 21/28 day schedule. Due to her age and renal function, the Revlimid was initiated at a reduced dosage of 10 mg daily for 21 days. The dexamethasone was reduced to 20 mg weekly. At that time, her calcium had become elevated again at 10.3 mg/dL with albumin 2.2 g/dL. Her renal function had improved with creatinine down to 1.0 mg/dL. As such, she was given zoledronic acid 3.5 mg by IV infusion. On 11/20/2017 she came in with a 2-day history of fever and chills. A specific source of infection was not identified other than her chest x-ray was suspicious for possible pneumonia. She was treated empirically with Levaquin, it was opted to put her Revlimid on hold, as she also was having diarrhea at that point. Her follow-up CBC on 11/23/2017 showed further decline in hemoglobin to 6.4 g, and the following day she was transfused 2 units of PRBC. She did receive her day 8 Velcade, and she was able to return for day 15 Velcade on 11/29/2017. Hemoglobin at that point was adequate at 9.9 g. She then continued her 2nd cycle on 12/13/2017 with the Revlimid omitted. The Velcade was again administered weekly for 3 weeks, and the dexamethasone was changed to 20 mg twice weekly. A repeat protein electrophoresis on 12/25/2017 showed significant improvement with the M protein quantitating at 0.73 g/dL. She then continued with cycle 3 of Velcade/dexamethasone on 01/11/2018, with cycle 4 on 02/07/2018, with cycle 5 on 03/06/2018, and with cycle 6 on 04/04/2018. Her repeat serum protein electrophoresis on 05/01/2018 showed 2 monoclonal protein bands which together quantitated at 0.21 g/dL compared to 0.31 g/dL on 03/06/2018. The serum free light chain assay showed normal kappa light chain at 1.28 mg/dL and normal lambda light chain at 1.52 mg/dL with the kappa/lambda ratio normal at 0.8421. She was seen for a follow-up visit on 05/02/2018, and she then began maintenance Revlimid at 5 mg daily. As of 05/29/2018 the Revlimid was put on hold due to worsening skin eruption. The skin eruption had initially continued to worsen somewhat after stopping the Revlimid, but it then gradually resolved. Dr Muñoz had seen her for a follow-up visit on 07/17/2018. At that point she had only minimal residual M protein. She appeared stable clinically, and given the side effects she experienced with her treatment, it was opted to just follow her on observation/expectant management. Her other medical illnesses include hypertension, type II diabetes with peripheral neuropathy, and degenerative arthritis. She is a nonsmoker. INTERIM HISTORY: As of March, there was a significant increase in her M protein and in her kappa free light chain. She had become mildly anemic. It was clear at that point that her myeloma was progressing, and we opted to proceed to a trial of second line therapy with daratumumab in combination with carfilzomib and dexamethasone. She began her day 1 treatment on 05/14/2019, which she tolerated well. However, following her day 2 treatment she was admitted to the hospital with acute respiratory distress/flash pulmonary edema. Her clinical course was complicated by non-ST elevation myocardial infarction, acute renal injury, and thrombocytopenia. She did have a good recovery, and she was then followed on observation/expectant management. As of July 2019 her M protein had increased significantly, to 2.65 g/dL. At that point she had become mildly anemic, hemoglobin 10.4 g. Her renal function, though, remained normal with creatinine 0.78 mg/dL. Restaging PET/CT on 08/29/2019 was felt to be likely a negative examination with no evidence for osseous or soft tissue tumor involvement. There were findings which were felt to most likely reflect prominent arthritic changes. With the significant increase in her M protein, she started 3rd line treatment with pomalidomide in combination with ixazomib and dexamethasone, cycle 1 beginning on 09/13/2019. The pomalidomide was put on hold due to side effects, the most significant being fatigue, fever, and just not feeling good generally. As of her follow-up visit on 09/30/2019 the ixazomib was also put on hold. She then continued treatment with dexamethasone 20 mg [address] Muñoz had seen her for a follow-up visit on 10/15/2019. At that time she planning to undergo left total hip arthroplasty. The procedure had been scheduled for 10/30/2019. As such, Dr Muñoz had stopped her steroid therapy. However, her hip surgery ended up being canceled, because of anemia and hypercalcemia. Dr Muñoz had seen her for a follow-up visit on 11/19/2019. At that time, he had discussed the possibility of continuing further treatment either with melphalan/prednisone or with belantamab [id number]. She was significantly anemic with hemoglobin 8.5 g. Renal function was still normal with creatinine 0.81 mg/dL, but calcium was significantly elevated at 12.3 mg/dL. She was given an infusion of sodium pamidronate. Her further clinical course was complicated by hospital admission for cardiac ischemia requiring angioplasty with stent placement to the LAD. She had to subsequent hospitalizations for congestive heart failure/pneumonia. She was discharged home on 12/22/2019. During that time, she was transfused on 2 different occasions. Ms. Red is here today for follow-up. She did see Dr. Muñoz on 01/02/2020 and states that she is feeling better than that visit. She states that she has family coming in for the holidays and feels good and is eager to see them. She wants to feel good for the holidays to enjoy it while I can . She denies any new concerns. She denies any pain. She continues to have assistance from her daughter but she can do more things by herself than she had been able to a few weeks ago. She denies any chest pain or shortness of breath. She denies any fever or chills. She has received the melphalan and prednisone prescriptions MrDenisha to discuss starting them today. Her ECOG is 2. She is accompanied by her daughter today as well. Past Medical History: Degenerative arthritis Hypertension Hypothyroidism Nephrolithiasis Peripheral neuropathy Type II diabetes Past Surgical History: Breast reduction Excision of Vitor's neuroma x 3 Hysterectomy Left bunionectomy Lithotripsy for renal stones in 9 and in 1989 Tonsillectomy Flu shot in 2018 D&C in 2012 Hysterectomy without oophorectomy in 2011 Right total hip arthroplasty in 2011 Laparoscopic cholecystectomy in 1991 Breast reduction in 1983 Cholecystectomy in 1982 Thyroidectomy in 1959 Allergies: Carfilzomib, Daratuzumab, EKG patches, Lisinopril, Pomalidomide, and revlimd. Medications: Acetaminophen Tablet Oral PRN AmLODIPine Besylate 1 Tablet (of 10 mg) Oral every am Aspirin 1 (325 mg) Tablet Oral daily Atorvastatin Calcium 1 Tablet (of 40 mg) Oral daily Clopidogrel Bisulfate 1 Tablet (of 75 mg) Oral daily Flovent HFA 1 Puff(s) (of 110 mcg/act) Aerosol Inhalation b.i.d. Furosemide 1 Tablet (of 40 mg) Oral b.i.d. Ipratropium-Albuterol 1 Puff(s) (of 20-100 mcg/act) Aerosol, solution Inhalation q 6 hours PRN Isosorbide Mononitrate 1 Tablet (of 15 mg) Oral daily Metoprolol Succinate ER 1 Tablet (of 50 mg) Tablet SR 24 HR Oral b.i.d. Multivitamin Women 50+ 1 Tablet Oral daily Pantoprazole Sodium 1 Tablet (of 40 mg) Tablet, enteric coated Oral daily PreserVision AREDS 2 Tablet Oral daily Senna S 1 - 2 Tablet (of 8.6-50 mg) Oral daily Family History: Ms. Red's mother at age 83: congestive heart failure. Ms. Red's father is alive. Ms. Red has 1 brother who is alive. She has 2 sisters: 2 alive. Father is still living at age 103. Mother with congestive heart failure at age 83. She also had been treated for breast cancer, renal cell cancer, and uterine cancer. One brother and two sisters are in good health. Social History: Ms. Red is and she is retired. Ms. Red has never smoked. She has no history of drinking. She is a nonsmoker. She does not drink alcohol. Review Of Symptoms: Neurologic Denies headache, blurred vision, and no areas of focal weakness or numbness. No sensory problems. Constitutional Denies fevers, chills, night sweats, excessive fatigue. She states she has noticed increased fatigue. Allergic/Immunologic No reactions. Eyes Denies significant visual changes. No diplopia. No amaurosis. ENMT Denies changes in hearing, sore throat, mouth sores, difficulty or changes in swallowing ability, and/or sinus drainage. Endocrine No diabetes, thyroid disease or hormone replacement. Denies hot flashes or night sweats. Hematologic/Lymphatic Denies easy bruising or bleeding. The patient denies any tender or palpable lymph nodes. Respiratory Stable dyspnea on exertion, but denies chest pain, cough or hemoptysis. Denies orthopnea. Cardiovascular Denies anginal chest pain, palpitations or orthopnea. Gastrointestinal Denies nausea, vomiting, diarrhea, GI bleeding, or constipation. Denies change in bowel habits and/or stool color, or early satiety. Genitourinary (F) No hematuria, hesitancy, incontinence, vaginal bleeding, discharge or other problems with urination. Musculoskeletal Denies joint pain, swelling or redness. No decreased range of motion. Integumentary Denies chronic rashes, inflammation, ulcerations or skin changes. Psychiatric Denies insomnia, depression, marylin or mood swings. Vital Signs: Performed on Jan 13, 2020 14:36 Height - 66.00 in Weight - 153.8 lbs (HIGH) BSA - 1.79 sq.m BMI - 24.82 Temperature - 98.3 F (LOW) Pulse - 72 /min Respiration - 22 /min BP - 128/53 mm(hg) O2 Sat - 98 % Pain - 0,2 - Ambulatory/capable of all self-care, unable to perform any work activities. Up and about more than 50% of waking hours. (ECOG) Physical Examination: Constitutional Alert, oriented, no acute distress. Skin pink, warm and dry. Head Normocephalic; atraumatic. Eyes Conjunctivae and sclerae are clear and without icterus. Pupils are reactive and equal. Neck Supple without masses or thyromegaly. No jugular venous distension. Hematologic/Lymphatic No petechiae or purpura. No tender or palpable lymph nodes in the cervical or supraclavicular areas. Respiratory Lungs are clear to auscultation without rhonchi or wheezing. Cardiovascular Regular rate and rhythm of heart without murmurs,clicks, gallops or rubs. Abdomen Non-tender, non-distended, no masses, ascites. Back/Spine Non-tender to palpation. Extremities No visible deformities, no cyanosis, clubbing or edema. Musculoskeletal No tenderness or swelling, normal range of motion without obvious weakness. Integumentary No rashes or lesions.-see above Neurologic No sensory or motor deficits, normal cerebellar function, in wheelchair today. Psychiatric Alert and oriented times three. Coherent speech. Verbalizes understanding of our discussions today. Laboratory:Test performed on Jan 07, 2020 11:10 Sodium 134 mmol/L Potassium 4.1 mmol/L Chloride 104 mmol/L CO2 21 mmol/L Anion Gap 13.1 Glucose 116 mg/dL BUN 15 mg/dL Creatinine 1.0 mg/dL Cr Clearance (Est) 46.95 mL/min Calcium 12.7 mg/dL Osmolality - Calculated 280 mOsm/kg WBC 5.6 10 3/uL RBC 2.77 10 6/uL HGB 8.6 g/dL HCT 28.4 % MCV 102.5 fL MCH 31.0 pg MCHC 30.3 g/dL RDW 18.9 % Platelet Count 94 10 3/cmm MPV 10.5 fL Neutrophils 1.31 10 3/uL Lymphocytes 2.9 10 3/uL Monocytes 1.2 10 3/uL Eosinophils 0.1 10 3/uL Basophils 0.0 10 3/uL Neutrophil % 23.4 % Lymphocyte % 52.4 % Monocyte % 20.9 % Eosinophil % 1.8 % Basophils % 0.4 % NRBC % 0 % CBC Slide Review Slide Review Perform Test performed on Dec 17, 2019 13:25 T3, Free 1.4 PG/ML T4, Free 2.40 ng/dL TSH 0.53 uIU/mL Protein, Total 10.1 g/dL Albumin 2.4 g/dL Globulin 7.7 g/dL Bilirubin, Total 1.2 mg/dL ALT (SGPT) 39 U/L AST (SGOT) 57 U/L Alkaline Phosphatase 94 IU/L Test performed on Dec 05, 2019 11:38 Manual Lymphocytes 36 % Manual Monocytes 18 % Manual Eosinophils 2 % Test performed on Nov 28, 2019 15:17 Anti-D Negative Blood Type BN Antibody Screen (Gel) NEGATIVE Test performed on Nov 12, 2019 08:46 Albumin, SPE 3.01 g/dL IGA 8 mg/dL IGG 6500 mg/dL IGM 10 mg/dL [place] / Lambda Ratio 186.89 Absolute Value Lambda Light Chain 1.60 [place] Light Chain 299.03 [id number] 0.24 g/dL [id number]-[id number] 0.61 g/dL Beta Globulin 0.54 g/dL Gamma Globulin 5.46 g/dL SPE Interpretation significant increase in monoclonal proteinemia since prior study Test performed on Nov 01, 2019 09:34 Ferritin 27.1 ng/mL Folate 20 ng/mL Test performed on Oct 24, 2019 09:38 % Iron Saturation 34 % Iron, Total 117 mcg/dL TIBC 346 mcg/dL Test performed on Oct 10, 2019 14:01 Manual Basophils 0 % Impression: 1. Patient with IgG kappa myeloma. Her bone marrow aspiration/biopsy on 10/27/2017 was hypercellular with 63% plasma cells. 2. She had anemia, renal dysfunction, and symptomatic hypercalcemia at initial presentation. Her skeletal survey showed diffuse bone demineralization, but without evidence of any large osteolytic lesions. Her other medical illnesses include: 3. Hypertension. 4. Type II diabetes. 5. Peripheral neuropathy. 6. Degenerative arthritis. 7. She has a history of nephrolithiasis. She had some improvement on initial treatment with sodium pamidronate and 4 days of high-dose dexamethasone. She then began treatment with Velcade/Revlimid/dexamethasone on 11/16/2017. The Revlimid was initiated at a reduced dosage of 10 mg daily on a 21/ day schedule with the Velcade and dexamethasone administered weekly. At that time she also received an infusion of zoledronic acid. Her 1st cycle of treatment was complicated by a febrile illness and diarrhea. She also developed pancytopenia with worsening anemia, requiring PRBC transfusion. It was uncertain to what extent her problems may have been due to the treatment or to the underlying myeloma. Her Revlimid was put on hold at day 4. She was then able to continue treatment with Velcade and dexamethasone. As of 04/04/2018 she began her 6th cycle of treatment. Her repeat serum protein electrophoresis on 05/01/2018 showed 2 monoclonal bands which together quantitated at 0.21 g/dL. The serum free light chain assay showed normal kappa/lambda ratio. Her hemoglobin was stable at 11.2 g. As of her follow-up visit on 05/02/2018 she was still having some fatigue, but she otherwise appeared stable clinically. She then began maintenance Revlimid at 5 mg daily. It was put on hold as of 05/29/2018 due to worsening skin eruption. The skin eruption subsequently did resolve, though gradually. As of her follow-up visit in June 2018 she had only a very small amount of residual M protein, and she appeared stable clinically. Given the side effects she had experienced with her treatment, I opted to just follow her on observation/expectant management. During her subsequent follow-up her clinical status initially remained stable. However, as of her follow-up in March 2019 there had been a slight drop in her hemoglobin/hematocrit levels, and her protein electrophoresis studies showed a significant increase in her M protein, to 2.11 g/dL, and a significant increase in the kappa free light chain, to 105.21 mg/L, with the kappa/lambda ratio elevated at 8.65. This was obviously consistent with progression of the myeloma. On 05/14/2019 she began a trial of second line therapy with daratumumab in combination with carfilzomib and dexamethasone. Following her day 2 treatment she required hospitalization for acute respiratory distress/pulmonary edema. Her clinical course was complicated by acute renal injury and thrombocytopenia. She did have a good recovery. Following hospitalization April she did show gradual improvement in her performance status. However, by July 2019 her M protein had increased significantly, to 2.65 g/dL. Her restaging PET/CT showed no obvious involvement with myeloma. However, she was mildly anemic, and with the increasing M protein she then proceeded to 3d line treatment with pomalidomide in combination with ixazomib and dexamethasone. She tolerated the pomalidomide very poorly, and it was stopped early into the first cycle. As of her follow-up visit on 09/30/2019 the ixazomib was also put on hold. She then continued treatment with dexamethasone. During that time she had worsening pain in her left hip due to underlying degenerative disease. He became severe enough to significantly limit her activity, and at that point she was scheduled for left total hip arthroplasty. The procedure, though, and ended up being canceled due to anemia and hypercalcemia. Dr Muñoz had seen her for a follow-up visit on 11/19/2019. She was significantly anemic with hemoglobin 8.5 g. Her renal function was still adequate with creatinine 0.81 mg/dL, but her calcium was significantly elevated at 12.3 mg/dL, consistent with progression of her myeloma. She was given an infusion of sodium pamidronate for the hypercalcemia. Her further clinical course was complicated by a hospital admission for cardiac ischemia, requiring angioplasty with stent to the LAD. She then had to additional hospitalizations for pneumonia/congestive heart failure. During that time she had been transfused on 2 occasions. She was discharged home on 12/22/2019. She has very marginal performance status. She continues to have anemia and she now has moderately severe thrombocytopenia. Her renal function remains adequate, but she is showing a recurrence of hypercalcemia. She was seen on January 02, [address] Muñoz for follow-up. At that time it was recommended that she pursue treatment with melphalan and prednisone pending insurance authorization she received another dose of IV pamidronate for hypercalcemia at that time. Plan: 1. She has been authorized for melphalan 16 mg daily for 4 days repeat every 4 weeks along with prednisone 20 mg 1 tablet 3 times daily for 4 days and repeat every 28 days. She would like to delay starting her treatment until after the as she has family coming in and wants to be feeling good for that visit. She has no concerns today. She states she feels good overall. 2. Labs from 01/07/2020 reported WBC 5.6 hemoglobin 8.6 platelets 94,000 ANC was 1300. Her calcium was 12.7 and she had received pamidronate 60 mg on 01/02/2020. 3. Her labs are scheduled to be rechecked again tomorrow for in-home lab draw. She has not had myeloma labs drawn recently will include those in reevaluate her myeloma and calcium. If those are stable we will plan to let her delay until after however if they are not she will need to start treatment KARIN if she still wants to pursue treatment. 3. She does have antiemetics on hand in the event that she does have nausea related to the melphalan. 4. She will have weekly labs with supportive care as needed including transfusion services. I am concerned as her hemoglobin on the was 8.6 and that was almost a week ago already. I have asked that she have a type and screen for tomorrow as well. She may need transfusion services. 5. We will plan to see her back 2 weeks after she starts the melphalan prednisone. 6. Ms. Red and her daughter were instructed to contact us in interim should questions or problems arise. Signed By: Otto Sue-, AOP Kris Muñoz MD <<Signature on File>>
[2020-01-21 14:35] LABS: Eosinophils % 0.2 %; Hematocrit 30.4 % (37.0-47.0); Hemoglobin 9.2 g/dL (11.5-15.3); Lymphocytes # 1.7 10^3/uL (0.8-4.8); Mean Corpuscular HGB Conc 30.3 g/dL (30.0-36.0); Mean Corpuscular Hemoglobin 30.2 pg (28.0-34.0); Mean Corpuscular Volume 99.7 fL (81-99); Mean Platelet Volume 11.6 fL (7.4-10.4); Monocytes # 0.4 10^3/uL (0.2-0.9); Monocytes % 7.6 %; Neutrophils # 3.07 10^3/uL (1.8-7.7); Neutrophils % 58.4 %; Nucleated Red Blood Cells % 0 %; Platelet Count 64 10^3/cmm (130-400); Red Blood Count 3.05 10^6/uL (4.1-5.3); Red Cell Distribution Width 19.9 % (12.1-15.1); White Blood Count 5.3 10^3/uL (4.0-10.0)
[2020-01-21 14:49] LABS: Blood Urea Nitrogen 29 mg/dL (8-23); Calcium 13.1 mg/dL (8.5-10.5); Carbon Dioxide 21 mmol/L (22-29); Chloride 104 mmol/L (98-107); Glucose 109 mg/dL (65-115); Osmolality Calculated 282 mOsm/kg (285-295); Sodium 133 mmol/L (136-145)
[2020-01-21 14:55] LABS: Anion Gap 12.2 (5-19); Potassium 4.2 mmol/L (3.5-5.1)
[2020-01-21 15:43] LABS: Slide Review Slide Review Perform
--- NOTE | 2020-01-21 23:39 | ONC FU_ITS ---
[facility] Patient Note Patient: Alta Red Unit #: [id number]: [id number] Dictated By: Kris Muñoz M.D.Date of Visit: Jan 15, 2020 Onc MED Follow-Up/Prog Note I spoke with Ms. Red and her daughter regarding her recent labs. She is here today for transfusion services. Her calcium is elevated again at 13.2. She did receive Aredia 60 mg on 01/02/2020. Her hemoglobin had dropped to 8.0 with her labs on January 14, 2020. Her platelet count had also declined to 78,000. Her neutrophils were 1200. Reviewing her labs with Dr. Muñoz along with the kappa free light chain it is noted that her kappa light chain on 01/14/2020 was 404.5 and on 09/12/2019 was 284. Her lambda light chain was 2.2 on 01/14/2020. Her creatinine is stable at 0.9. The SPEP abnormal band protein reported at 7.4. And it was 4.7 on 09/12/2019. I spoke with Ms. Red and her daughter in regards to the Zometa which she needs for the hypercalcemia today. We will start with 4 mg. We also discussed that she needs to start her melphalan and prednisone right away as her disease is obviously flaring. She had requested to wait until after to start the melphalan because she had company coming in and she did not want to feel yucky during their presence. I did express to them that she needs to start her medications for treatment of the myeloma right away as we are seeing a flare with her labs???calcium, kappa light chain and SPEP elevating. Mrs. Red and her daughter verbalized understanding and states that we will get her started right away. We will plan for interim CBC and CMP. We will plan to see her back as scheduled in 2 weeks. She is instructed to contact us in interim should questions or problems arise. Laboratory:Test performed on Jan 21, 2020 10:10 Sodium 133 mmol/L Potassium 4.2 mmol/L Chloride 104 mmol/L CO2 21 mmol/L Anion Gap 12.2 Glucose 109 mg/dL BUN 29 mg/dL Creatinine 1.2 mg/dL Cr Clearance (Est) 39.1200 mL/min Calcium 13.1 mg/dL Osmolality - Calculated 282 mOsm/kg WBC 5.3 10 3/uL RBC 3.05 10 6/uL HGB 9.2 g/dL HCT 30.4 % MCV 99.7 fL MCH 30.2 pg MCHC 30.3 g/dL RDW 19.9 % Platelet Count 64 10 3/cmm MPV 11.6 fL Neutrophils 3.07 10 3/uL Lymphocytes 1.7 10 3/uL Monocytes 0.4 10 3/uL Eosinophils 0.0 10 3/uL Basophils 0.0 10 3/uL Neutrophil % 58.4 % Lymphocyte % 33.0 % Monocyte % 7.6 % Eosinophil % 0.2 % Basophils % 0.0 % NRBC % 0 % CBC Slide Review Slide Review Perform Signed By: MOLLY Sue-GINNY, AOCLAUDIA Muñoz M.D. <<Signature on File>>
== END 2020-01-22 14:00 | disposition home or self-care (01) ==
LOC: ONCMED 10:10
PROVIDERS: Nurse Practitioner; PCP Family Medicine; Visit Provider Internal Medicine Medical Oncology
DX: C90.00 Multiple myeloma not having achieved remission (principal); E83.52 Hypercalcemia; I10 Essential (primary) hypertension; E11.42 Type 2 diabetes mellitus with diabetic polyneuropathy; M19.90 Unspecified osteoarthritis, unspecified site; Z87.442 Personal history of urinary calculi; Z79.899 Other long term (current) drug therapy; Z79.52 Long term (current) use of systemic steroids
CPT/HCPCS: 36415; 36430; 80048; 82784; 83883; 84155; 84165; 85025; 86850; 86900; 86920; 96374; 96375; 99214; J1940; J3489; J7050; P9040

== ENCOUNTER 2020-01-22 14:21 | Observation (INO) | payer MEDICARE, SELFPAY ==
[2020-01-22 14:29] VITALS: BP 118/58; PULSE 64; RESP 16; TEMP 37.2; O2SAT 96; BMI 24.5
--- NOTE | 2020-01-22 15:46 | XRR_ITS ---
PROCEDURE INFORMATION: Exam: XR Chest, 1 View Exam date and time: 01/22/2020 6:11 PM Age: 84 years old Clinical indication: Cough and fever; Prior surgery; Surgery type: Breast reduction, stent; Additional info: Syncope TECHNIQUE: Imaging protocol: XR of the chest Views: 1 view. COMPARISON: CR XR chest 1V portable [id number] 12/20/2019 5:27 AM FINDINGS: Lungs: Currently no visible evidence of active interstitial or alveolar airspace disease. Pleural space: Minimal blunting of the left costophrenic angle which may reflect a tiny left pleural effusion versus pleural thickening. Heart/Mediastinum: Cardiomegaly with arteriosclerosis. Bones/joints: Unremarkable for age. XR/XR chest 1V portable [id number] IMPRESSION: Nonacute.
--- NOTE | 2020-01-22 16:53 | PC.NURSE ---
Pt sitting in [place] with daughter, no needs.
[2020-01-22 18:23] LABS: Hematocrit 27.9 % (37.0-47.0); Hemoglobin 8.7 g/dL (11.5-15.3); Lymphocytes # 1.3 10^3/uL (0.8-4.8); Lymphocytes % 33.1 %; Mean Corpuscular HGB Conc 31.2 g/dL (30.0-36.0); Mean Corpuscular Hemoglobin 29.6 pg (28.0-34.0); Mean Corpuscular Volume 94.9 fL (81-99); Mean Platelet Volume 10.5 fL (7.4-10.4); Monocytes # 0.5 10^3/uL (0.2-0.9); Monocytes % 13.2 %; Neutrophils # 2.01 10^3/uL (1.8-7.7); Neutrophils % 51.9 %; Nucleated Red Blood Cells % 0 %; Platelet Count 61 10^3/cmm (130-400); Red Blood Count 2.94 10^6/uL (4.1-5.3); Red Cell Distribution Width 19.6 % (12.1-15.1); White Blood Count 3.9 10^3/uL (4.0-10.0)
[2020-01-22 18:41] LABS: D Dimer 0.88 ug/mIFEU (0-0.59)
[2020-01-22 18:42] LABS: Alanine Aminotransferase 17 U/L (0-33); Albumin Level 2.4 g/dL (3.5-5.2); Alkaline Phosphatase 61 IU/L (35-105); Anion Gap 9.2 (5-19); Aspartate Amino Transferase 45 U/L (0-32); Blood Urea Nitrogen 25 mg/dL (8-23); C Reactive Protein 18.7 mg/L (0.0-4.9); Calcium 12.2 mg/dL (8.5-10.5); Carbon Dioxide 21 mmol/L (22-29); Chloride 106 mmol/L (98-107); Globulin 8.5 g/dL (1.3-4.6); Glucose 104 mg/dL (65-115); Lactate (Lactic Acid level) 1.8 mmol/L (0.5-2.2); Lipase 201 U/L (13-60); Osmolality Calculated 279 mOsm/kg (285-295); Potassium 4.2 mmol/L (3.5-5.1); Sodium 132 mmol/L (136-145); Total Protein 10.9 g/dL (6.6-8.7)
[2020-01-22 18:48] LABS: Total Bilirubin 0.6 mg/dL (0.15-1.2)
[2020-01-22 19:02] LABS: Add Urine Microscopic? YES; Bilirubin Urine Neg (Negative); Blood Urine 2+ (Negative); Glucose Urine UA Norm (Normal); Ketones Urine Negative (Negative); Leukocyte Esterase Urine Negative (Negative); Nitrate Urine Negative (Negative); Protein Urine 1+ (Negative); Specific Gravity, Urine 1.015 (1.005-1.030); Urine Appearance Hazy (CLEAR); Urine Color Yellow (Yellow); Urobilinogen Urine Neg (Negative); pH Urine 5 (5-7)
[2020-01-22 19:06] LABS: Add Urine Culture? Yes; Amorphous Sediment Urine 1+ /hpf; Bacteria Urine 1+ /hpf; Mucus Urine 2+ /hpf; Squamous Epithelial Cell Urine 0-4 /hpf (0-5); Transitional Epi Cells Urine 0-4 /hpf; WBC Urine 0-4 /hpf (0-5)
[2020-01-22 19:16] LABS: Slide Review Slide Review Perform
[2020-01-22 19:32] LABS: Erythrocyte Sedimentation Rate > 120 mm/hr (0-15)
[2020-01-22 19:40] LABS: Influenza A by IFA Negative (Negative); Influenza B by IFA Negative (Negative)
[2020-01-22 20:41] VITALS: BP 146/49; PULSE 75; RESP 16; O2SAT 98
[2020-01-22 21:18] VITALS: BP 151/62; PULSE 73; RESP 17; TEMP 37.1; O2SAT 95
[2020-01-22] MEDS: sodium chloride 0.9% 1,000 ML 150 ML IV (21:30)
--- NOTE | 2020-01-22 21:52 | P.HP_ITS ---
Providers/Chief Complaint Admitting Physician: Nadege Simons MD Primary Care Provider: Saul Nieto Jr, MD Chief Complaint: fever, cough History of Present Illness Alta Red is a 84 year old female with past medical history of IgG kappa myeloma on chemotherapy, CAD with recent stent placement in LAD in November 2019 on DAPT, HFrEF, peripheral neuropathy, hypertension, DM admitted one month ago for acute hypoxic respiratory failure secondary to pneumonia and NSTEMI. Ada juan c with broad-spectrum antibiotics, s/.p PCI with stent to proximal to mid LAD on Dec 11. Discharged on Dec 14 and then readmitted for pleural effusion, not amenable to thoracentesis, treated with iv diuresis and levaquin. She followed up at oncology services on 01/20 and had hypercalcemia with Ca at 13.2. She was advised to start start melphalan and prednisone for disease flare. Prsented to the ER today c/o . Labs notable for cr 1.4, ca 12.2. Case was discussed by Dr. Min with Dr. Muñoz and it was advised that she received iv hydration and Pamidronate tonight. Review of Systems General: Reports: 10 or more systems reviewed and unremarkable except in HPI and below Const: Denies: fever(s), chills or body aches Eyes: Denies: change in vision, blurry vision or photophobia ENMT: Reports: hoarseness; Denies: throat pain, enlarged tonsils, odynophagia or nasal congestion Card: Denies: chest pain, palpitations, irregular heart rhythm, edema, swelling of feet/ankles, lightheadedness, pre-syncope, dyspnea on exertion or orthopnea Resp: Denies: dyspnea, productive cough, non-productive cough, wheezing, stridor, pain on inspiration, change in phlegm color, hemoptysis or chest con gestion GI: Denies: abdominal pain, nausea, vomiting, hematemesis, coffee ground emesis, dysphagia, heartburn, diarrhea, constipation, GI cramping, change in stool character, hematochezia or melena : Denies: flank pain, difficulty voiding, dysuria, urinary frequency, urinary urgency, urinary hesitancy or hematuria Musc: Denies: neck pain, back pain, extremity pain, joint swelling, joint warmth or deformity Neuro: Denies: headache(s), numbness in extremities, weakness in extremities, sensory changes, difficulty walking, frequent falls, dizziness, vertigo, behavioral changes, Slurred speech present or seizure-like activity Psych: Denies: anxiety, depression, suicidal ideation or homicidal ideation Endo: Denies: polyuria, polydipsia, tired all the time, cold intolerance or hot flashes [place]/Lymph: Denies: easy bruising or easy bleeding Medications/Allergies Home Medications Medication Instructions Recorded Confirmed Last Taken Type acetaminophen 650 mg 650 mg PO Q12H 05/15/19 01/22/20 01/22/20 History tablet,extended release sennosides 8.6 mg-docusate sodium 1 tab-cap PO DAILY 05/15/19 01/22/20 01/22/20 History 50 mg tablet amlodipine 10 mg PO DAILY #30 tab 05/25/19 01/22/20 01/22/20 Rx aspirin 81 mg PO DAILY #30 tab 05/25/19 01/22/20 01/22/20 Rx pantoprazole 40 mg tablet,delayed 40 mg PO DAILY 06/17/19 01/22/20 01/22/20 History release atorvastatin 40 mg PO DAILY #30 tab 12/15/19 01/22/20 01/22/20 Rx furosemide 40 mg PO BID #0 tab 12/15/19 01/22/20 01/22/20 Rx clopidogrel 75 mg tablet 75 mg PO DAILY #30 tab 01/07/20 01/22/20 01/22/20 Rx metoprolol tartrate 25 mg tablet 50 mg PO BID #180 tab 01/07/20 01/22/20 01/22/20 Rx potassium chloride 20 mEq 20 meq PO DAILY tab 01/07/20 01/22/20 01/22/20 History tablet,extended release isosorbide mononitrate 20 mg tablet 15 mg PO DAILY #30 tab 01/20/20 01/22/20 01/22/20 Rx Euthyrox 125 mcg PO DAILY 01/22/20 01/22/20 01/22/20 History melphalan See Rx Instructions .ROUTE .COMPLEX 01/22/20 01/22/20 01/21/20 History prednisone See Rx Instructions .ROUTE .COMPLEX 01/22/20 01/22/20 01/21/20 History Allergies Allergy/AdvReac Type Severity Reaction Status Date / Time lenalidomide [From Revlimid] Allergy ALGY-Rash Verified 01/07/20 12:55 lisinopril AdvReac ADR-Cough Verified 01/07/20 12:55 PFSH Acute PFSH: Medical History Abnormal cardiovascular stress test Acute diastolic heart failure Compensated currently Anemia Arthritis Benign essential hypertension with target blood pressure below 140/90 Improved Diabetes Dyslipidemia Elevated troponin Heart failure PCI TO LAD 11/2019 History of nephrolithiasis 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.A candidate for denosumab Hypertension Hypokalemia Hypokalemia Hypothyroidism Hypoxia Metabolic acidosis Multiple myeloma Peripheral neuropathy Pleural effusion Chronic stable rt pleural effusion likely 2/2 to Decompensated HFrEF ,PNA.Improving Pneumonia Resolved Recent non-ST elevation myocardial infarction Surgical History H/O cystoscopy H/O foot surgery H/O lithotripsy H/O: hysterectomy History of cholecystectomy History of mastectomy, subtotal History of right hip replacement History of thyroidectomy Status post breast reduction Stented coronary artery Family History Mother Congestive heart failure Cancer breast and kidney Denies family history of Anesthesia complication Bleeding disorder Social History Smoking and tobacco status: never smoked Second hand smoke exposure: No Smoking risk assessment/counseling performed?: Yes Alcohol intake: never Desire information about alcohol rehabilitation?: No Counseling given: No Caregiver/support person: Yes Lives independently: Yes Household members: spouse Housing: House Marital status: Current occupational status: retired History of recent travel: No Current gender identity: Female Vitals/I&O/Wt Last Vital Signs Temp 98.8 F 01/22/20 21:18 Pulse 73 01/22/20 21:18 Resp 17 01/22/20 21:18 BP 151/62 01/22/20 21:18 Pulse Ox 95 01/22/20 21:18 Weight last 48 hrs Weight 68.039 kg Physical Exam Const: COMMON NORMALS: no acute distress, average body habitus, patient oriented x3, no limitations, healthy appearing, alert and well nourished HENMT: COMMON NORMALS: normocephalic and atraumatic HEAD & SCALP: normocephalic and atraumatic Eye: COMMON NORMALS: Equal, round and reactive pupils present, EOMs intact bilaterally, conjunctivae normal and no scleral icterus CONJUNCTIVA: Yes conjunctivae normal PUPIL: Yes Equal, round and reactive pupils present Neck/C-Spine: COMMON NORMALS: no JVD Resp: COMMON NORMALS: normal respiratory effort, No retractions, No use of accessory muscles, clear to auscultation bilaterally and percussion normal AUSCULTATION: clear to auscultation bilaterally PERCUSSION: percussion normal Cardio: COMMON NORMALS: no JVD, regular rate, regular rhythm, S1 normal heart sound present, S2 normal heart sound present, No gallops present (Cardio), No clicks present (Cardio), No murmurs present (Cardio), No rub (Cardio) and Peripheral pulses 2+ throughout RATE: regular rate RHYTHM: regular rhythm HEART SOUNDS: S1 normal heart sound present and S2 normal heart sound present PERIPHERAL PULSES: Peripheral pulses 2+ throughout GI: COMMON NORMALS: Normal to inspection, nondistended, normoactive bowel sounds present, Soft to palpation, non-tender, No hepatosplenomegaly present, no masses and no bruits PALPATION: Yes Soft to palpation and Yes No hepatosplenomegaly present Extremity: COMMON NORMALS: normal to inspection, full ROM, capillary refill normal, no joint enlargement, no clubbing, cyanosis or edema, no calf tenderness and no pedal edema Neuro: COMMON NORMALS: patient oriented x3, CN's II-XII intact bilaterally, moves all extremities, no focal motor deficits, no sensory deficits noted, deep tendon reflexes 2+ bilaterally and gait normal SENSORIUM/ORIENTATION: Yes chepe rt Psych: COMMON NORMALS: mental status grossly normal, Normal thought process present, cooperative, normal affect, speech normal, activity/motor behavior normal, denies hallucinations, denies homicidal ideation and denies suicidal ideation SPEECH: Yes normal speech THOUGHT PROCESS: Normal thought process present Skin: COMMON NORMALS: no rashes or lesions noted, no wounds, turgor normal, no jaundice, no petechiae and no mottling GENERAL SKIN EXAM: no rashes or lesions noted and turgor normal Data : 01/23/20 05:00 01/23/20 05:00 A&P Assessment and plan (1) Hypercalcemia: a at 12.1, no current mentals mihaela astorgas ordered for pamidronate 90mg x 1 and IV hydration for overnight Recheck Ca with am labs Status: Acute (2) APOLONIA (acute kidney injury): Secondary to multiple myeloma likely BEing treated as outpatient with melphalan for disease flare Iv hydration overnight fir the same, hold nephrotoxic medications Status: Acute (3) CAD (coronary artery disease): Recent PCI as above in HPI Continue DAPT, imdur, metoprolol, statins From 12/08, systolic HF with EF 40-45% and Gr2 diastolic dysfunction, aim for gentle hydration Currently appears to be euvolemic Status: Acute Qualifiers: Associated angina: angina presence unspecified Coronary Disease-Associated Artery/Lesion type: [place] artery [place] vs. transplanted heart: [place] heart Qualified Code(s): I25.10 - Atherosclerotic heart disease of [place] coronary artery without angina pectoris (4) Multiple myeloma: Not in remission Getting chemotherapy as outpatient Status: Acute Qualifiers: Multiple myeloma remission status: not in remission Qualified Code(s): C90.00 - Multiple myeloma not having achieved remission Attestations Medical Necessity Statement*: Under observation for hypercalcemia. less than 2 MN Time Spent in Patient Care: Greater than 35 minutes (>than 50% of time spent in counselling and/or direct pt care on unit) . Coding Level of Care Code Acute Staging Technician for Chg Fwd Exam Comprehensive Diagnoses Hypercalcemia E83.52 APOLONIA (acute kidney injury) N17.9 CAD (coronary artery disease) I25.10 Associated angina: angina presence unspecified Coronary Disease-Associated Artery/Lesion type: [place] artery [place] vs. transplanted heart: [place] heart Multiple myeloma C90.00 Multiple myeloma remission status: not in remission
[2020-01-22 22:35] VITALS: BP 129/55; PULSE 72; RESP 17; TEMP 36.8; O2SAT 94
[2020-01-22] MEDS: enoxaparin 30 mg/0.3 mL Syringe SUBCUT (22:41)
[2020-01-22] MEDS: sodium chloride 0.9% 1,000 ML 50 ML IV (22:41)
[2020-01-22] MEDS: acetaminophen 325 mg Tablet 650 MG PO (22:44)
[2020-01-23] VITALS (7 sets, daily range): BP systolic 121–137; BP diastolic 38–54; PULSE 72–90; RESP 17–18; TEMP 36.4–37.7; O2SAT 94–96
--- NOTE | 2020-01-23 00:29 | ED_ITS ---
HPI - General Adult General: Chief complaint: Fever Stated complaint: fever, cough Time Seen by Provider: 01/22/20 17:53 History of Present Illness: HPI narrative: Patient is an 84-year-old female with multiple myeloma and she has had several hospital admissions for pneumonia. According to her daughter she usually gets pneumonia after chemotherapy. She just finished a 4-day course of chemotherapy and last night developed a mild cough, and had some chills. Her daughter would like to stave off any possible pneumonia so she was brought here for evaluation. She denies any nausea or vomiting. She does have some shortness of breath. Associated symptoms: Reports dyspnea; Deny headache(s), nausea, rash, palpitations or vomiting Review of Systems General: Reports: 10 or more systems reviewed and unremarkable except in HPI and below Const: Reports: fever(s), chills and fatigue; Denies: body aches Eyes: Denies: change in vision or blurry vision ENMT: Denies: throat pain, enlarged tonsils, odynophagia, hoarseness, mouth pain or swelling of lips/tongue Card: Denies: palpitations, irregular heart rhythm, edema or swelling of feet/ankles Resp: Reports: dyspnea and productive cough; Denies: non-productive cough GI: Denies: abdominal pain, nausea or vomiting : Denies: flank pain, difficulty voiding, dysuria, urinary frequency, urinary urgency or urinary hesitancy Musc: Denies: neck pain, back pain or extremity swelling Skin/Breast: Denies: rash, pruritus or erythema Neuro: Denies: headache(s), numbness in extremities or weakness in extremities Endo: Denies: polyuria, polydipsia or tired all the time PFSH ED PFSH: Medical History Abnormal cardiovascular stress test Acute diastolic heart failure Compensated currently Anemia Arthritis Benign essential hypertension with target blood pressure below 140/90 Improved Diabetes Dyslipidemia Elevated troponin Heart failure PCI TO LAD 11/2019 History of nephrolithiasis 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.A candidate for denosumab Hypertension Hypokalemia Hypokalemia Hypothyroidism Hypoxia Metabolic acidosis Multiple myeloma Peripheral neuropathy Pleural effusion Chronic stable rt pleural effusion likely 2/2 to Decompensated HFrEF ,PNA.Improving Pneumonia Resolved Recent non-ST elevation myocardial infarction Surgical History H/O cystoscopy H/O foot surgery H/O lithotripsy H/O: hysterectomy History of cholecystectomy History of mastectomy, subtotal History of right hip replacement History of thyroidectomy Status post breast reduction Stented coronary artery Family History Mother Congestive heart failure Cancer breast and kidney Denies family history of Anesthesia complication Bleeding disorder Social History Smoking and tobacco status: never smoked Second hand smoke exposure: No Smoking risk assessment/counseling performed?: Yes Alcohol intake: never Desire information about alcohol rehabilitation?: No Counseling given: No Caregiver/support person: Yes Lives independently: Yes Household members: spouse Housing: House Marital status: Current occupational status: retired History of recent travel: No Current gender identity: Female Physical Exam Const: COMMON NORMALS: no acute distress, average body habitus, patient oriented x3, no limitations, healthy appearing, alert and well nourished Eye: COMMON NORMALS: Equal, round and reactive pupils present, EOMs intact bilaterally, conjunctivae normal and no scleral icterus CONJUNCTIVA: Yes conjunctivae normal PUPIL: Yes Equal, round and reactive pupils present Neck/C-Spine: COMMON NORMALS: no meningeal signs and no JVD Resp: COMMON NORMALS: normal respiratory effort, No retractions, No use of accessory muscles, clear to auscultation bilaterally and percussion normal AUSCULTATION: clear to auscultation bilaterally PERCUSSION: percussion normal Cardio: COMMON NORMALS: no JVD, regular rate, regular rhythm, S1 normal heart sound present, S2 normal heart sound present, No gallops present (Cardio), No clicks present (Cardio), No murmurs present (Cardio), No rub (Cardio) and Peripheral pulses 2+ throughout RATE: regular rate RHYTHM: regular rhythm HEART SOUNDS: S1 normal heart sound present and S2 normal heart sound present PERIPHERAL PULSES: Peripheral pulses 2+ throughout GI: COMMON NORMALS: Normal to inspection, nondistended, normoactive bowel sounds present, Soft to palpation, non-tender, No hepatosplenomegaly present, no masses and no bruits PALPATION: Yes Soft to palpation and Yes No hepatosplenomegaly present Extremity: COMMON NORMALS: normal to inspection, full ROM, capillary refill normal, no calf tenderness and no pedal edema Neuro: COMMON NORMALS: patient oriented x3 SENSORIUM/ORIENTATION: Yes alert MENINGEAL SIGNS: Yes no meningeal signs Skin: COMMON NORMALS: no rashes or lesions noted, no wounds, turgor normal, no jaundice, no petechiae and no mottling GENERAL SKIN EXAM: no rashes or lesions noted and turgor normal Course Reevaluation(s): Reevaluation #1: Discussed her lab and imaging findings with her as well as my conversation with Dr. Muñoz. Advised that because of the hypercalcemia she would need hydration and pamidronate. She voiced understanding and is in agreement with the plan. Time: 19:45 Consultations: Consultation #1: Discussed the patient with Dr. Muñoz, oncology. Her calcium is still significantly elevated and he would like her to be admitted and be given intravenous pamidronate, 90 mg IV. Time: 19:39 Consultation #2: Discussed the patient with Dr. Mariposa Castorena, she kindly accepted t he patient to her service. Time: 20:00 Vital Signs: Vital signs: Vital Signs Temperature 98.2 F 01/22/20 22:35 Pulse Rate 72 01/22/20 22:35 Respiratory Rate 17 01/22/20 22:35 Blood Pressure 129/55 01/22/20 22:35 Pulse Oximetry 94 01/22/20 22:35 MDM - General Adult MDM Narrative: Medical decision making narrative: 84-year-old female patient with multiple myeloma who presents to the emergency department with cough, weakness, and on evaluation she has hypercalcemia. She is admitted for management of hypercalcemia. Medical Records: Attestation: I reviewed the patient's medical records. Lab Data: Attestation: I reviewed the patient's lab results. Labs: Lab Results 01/22/20 01/22/20 01/22/20 Range/Units 18:13 18:13 18:13 WBC 3.9 L (4.0-10.0) 10^3/ uL RBC 2.94 L (4.1-5.3) 10^6/u L Hgb 8.7 L (11.5-15.3) g/dL Hct 27.9 L (37.0-47.0) % MCV 94.9 (81-99) fL MCH 29.6 (28.0-34.0) pg MCHC 31.2 (30.0-36.0) g/dL RDW 19.6 H (12.1-15.1) % Plt Count 61 L (130-400) 10^3/c mm MPV 10.5 H (7.4-10.4) fL Neut % (Auto) 51.9 % Lymph % (Auto) 33.1 % Sierra % (Auto) 13.2 % Eos % (Auto) 1.0 % Baso % (Auto) 0.0 % Neut # (Auto) 2.01 (1.8-7.7) 10^3/u L Lymph # (Auto) 1.3 (0.8-4.8) 10^3/u L Sierra # (Auto) 0.5 (0.2-0.9) 10^3/u L Eos # (Auto) 0.0 (0.0-0.8) 10^3/u L Baso # (Auto) 0.0 (0.0-0.1) 10^3/u L Nucleated RBC % (a uto) 0 % Nucleated RBCs # 0.0 /100WBC ESR (0-15) mm/hr D-Dimer 0.88 H (0-0.59) ug/mIFE U Sodium 132 L (136-145) mmol/L Potassium 4.2 (3.5-5.1) mmol/L Chloride 106 (98-107) mmol/L Carbon Dioxide 21 L (22-29) mmol/L Anion Gap 9.2 (5-19) BUN 25 H (8-23) mg/dL Creatinine 1.4 H (0.5-0.9) mg/dL GFR Calculation Not Reportable Glucose 104 (65-115) mg/dL Calculated Osmolal ity 279 L (285-295) mOsm/k g Lactate (0.5-2.2) mmol/L Calcium 12.2 H (8.5-10.5) mg/dL Total Bilirubin 0.6 (0.15-1.2) mg/dL AST 45 H (0-32) U/L ALT 17 (0-33) U/L Alkaline Phosphata se 61 (35-105) IU/L C-Reactive Protein 18.7 H (0.0-4.9) mg/L Total Protein 10.9 H (6.6-8.7) g/dL Albumin 2.4 L (3.5-5.2) g/dL Globulin 8.5 H (1.3-4.6) g/dL Lipase 201 H (13-60) U/L Urine Color (Yellow) Urine Appearance (CLEAR) Urine pH (5-7) Ur Specific Gravit y (1.005-1.030) Urine Protein (Negative) Urine Glucose (UA) (Normal) Urine Ketones (Negative) Urine Blood (Negative) Urine Nitrate (Negative) Urine Bilirubin (Negative) Urine Urobilinogen (Negative) mg/dL Ur Leukocyte Chrissy ase (Negative) Urine RBC (0-2) /hpf Urine WBC (0-5) /hpf Ur Squamous Epith Cells (0-5) /hpf Ur Transition Epit h Cell /hpf Amorphous Sediment /hpf Urine Bacteria (NONE) /hpf Fine Granular Cast s /lpf Urine Mucus /hpf Influenza Type A A g (Negative) Influenza Type B A g (Negative) 01/22/20 01/22/20 01/22/20 Range/Units 18:13 18:13 18:28 WBC (4.0-10.0) 10^3/ uL RBC (4.1-5.3) 10^6/u L Hgb (11.5-15.3) g/dL Hct (37.0-47.0) % MCV (81-99) fL MCH (28.0-34.0) pg MCHC (30.0-36.0) g/dL RDW (12.1-15.1) % Plt Count (130-400) 10^3/c mm MPV (7.4-10.4) fL Neut % (Auto) % Lymph % (Auto) % Sierra % (Auto) % Eos % (Auto) % Baso % (Auto) % Neut # (Auto) (1.8-7.7) 10^3/u L Lymph # (Auto) (0.8-4.8) 10^3/u L Sierra # (Auto) (0.2-0.9) 10^3/u L Eos # (Auto) (0.0-0.8) 10^3/u L Baso # (Auto) (0.0-0.1) 10^3/u L Nucleated RBC % (a uto) % Nucleated RBCs # /100WBC ESR > 120 H (0-15) mm/hr D-Dimer (0-0.59) ug/mIFE U Sodium (136-145) mmol/L Potassium (3.5-5.1) mmol/L Chloride (98-107) mmol/L Carbon Dioxide (22-29) mmol/L Anion Gap (5-19) BUN (8-23) mg/dL Creatinine (0.5-0.9) mg/dL GFR Calculation Glucose (65-115) mg/dL Calculated Osmolal ity (285-295) mOsm/k g Lactate 1.8 (0.5-2.2) mmol/L Calcium (8.5-10.5) mg/dL Total Bilirubin (0.15-1.2) mg/dL AST (0-32) U/L ALT (0-33) U/L Alkaline Phosphata se (35-105) IU/L C-Reactive Protein (0.0-4.9) mg/L Total Protein (6.6-8.7) g/dL Albumin (3.5-5.2) g/dL Globulin (1.3-4.6) g/dL Lipase (13-60) U/L Urine Color Yellow (Yellow) Urine Appearance Hazy A (CLEAR) Urine pH 5 (5-7) Ur Specific Gravit y 1.015 (1.005-1.030) Urine Protein 1+ H (Negative) Urine Glucose (UA) Norm (Normal) Urine Ketones Negative (Negative) Urine Blood 2+ H (Negative) Urine Nitrate Negative (Negative) Urine Bilirubin Neg (Negative) Urine Urobilinogen Neg (Negative) mg/dL Ur Leukocyte Chrissy ase Negative (Negative) Urine RBC 5-10 H (0-2) /hpf Urine WBC 0-4 H (0-5) /hpf Ur Squamous Epith Cells 0-4 H (0-5) /hpf Ur Transition Epit h Cell 0-4 /hpf Amorphous Sediment 1+ /hpf Urine Bacteria 1+ H (NONE) /hpf Fine Granular Cast s 5-10 H /lpf Urine Mucus 2+ /hpf Influenza Type A A g (Negative) Influenza Type B A g (Negative) 01/22/20 Range/Units 18:45 WBC (4.0-10.0) 10^3/ uL RBC (4.1-5.3) 10^6/u L Hgb (11.5-15.3) g/dL Hct (37.0-47.0) % MCV (81-99) fL MCH (28.0-34.0) pg MCHC (30.0-36.0) g/dL RDW (12.1-15.1) % Plt Count (130-400) 10^3/c mm MPV (7.4-10.4) fL Neut % (Auto) % Lymph % (Auto) % Sierra % (Auto) % Eos % (Auto) % Baso % (Auto) % Neut # (Auto) (1.8-7.7) 10^3/u L Lymph # (Auto) (0.8-4.8) 10^3/u L Sierra # (Auto) (0.2-0.9) 10^3/u L Eos # (Auto) (0.0-0.8) 10^3/u L Baso # (Auto) (0.0-0.1) 10^3/u L Nucleated RBC % (a uto) % Nucleated RBCs # /100WBC ESR (0-15) mm/hr D-Dimer (0-0.59) ug/mIFE U Sodium (136-145) mmol/L Potassium (3.5-5.1) mmol/L Chloride (98-107) mmol/L Carbon Dioxide (22-29) mmol/L Anion Gap (5-19) BUN (8-23) mg/dL Creatinine (0.5-0.9) mg/dL GFR Calculation Glucose (65-115) mg/dL Calculated Osmolal ity (285-295) mOsm/k g Lactate (0.5-2.2) mmol/L Calcium (8.5-10.5) mg/dL Total Bilirubin (0.15-1.2) mg/dL AST (0-32) U/L ALT (0-33) U/L Alkaline Phosphata se (35-105) IU/L C-Reactive Protein (0.0-4.9) mg/L Total Protein (6.6-8.7) g/dL Albumin (3.5-5.2) g/dL Globulin (1.3-4.6) g/dL Lipase (13-60) U/L Urine Color (Yellow) Urine Appearance (CLEAR) Urine pH (5-7) Ur Specific Gravit y (1.005-1.030) Urine Protein (Negative) Urine Glucose (UA) (Normal) Urine Ketones (Negative) Urine Blood (Negative) Urine Nitrate (Negative) Urine Bilirubin (Negative) Urine Urobilinogen (Negative) mg/dL Ur Leukocyte Chrissy ase (Negative) Urine RBC (0-2) /hpf Urine WBC (0-5) /hpf Ur Squamous Epith Cells (0-5) /hpf Ur Transition Epit h Cell /hpf Amorphous Sediment /hpf Urine Bacteria (NONE) /hpf Fine Granular Cast s /lpf Urine Mucus /hpf Influenza Type A A g Negative (Negative) Influenza Type B A g Negative (Negative) Imaging Data^: CXR: Attestation: I personally reviewed and interpreted this imaging study as follows: Radiologist's impression: [address] [address] XRay Report Signed Patient: Al[place] Red #: [id number] : 7Acct#:[id number] Age/Sex: 84 / FADM Date: 01/22/20 Loc: [facility]/Bed: Attending Dr: Ordering Provider/Ordering MD: Sophia Mallory Date of Service: 01/22/20 Procedure(s): XR chest 1V portable [id number] Accession Number(s): [id number] Report Number: [id number] PROCEDURE INFORMATION: Exam: XR Chest, 1 View Exam date and time: 01/22/2020 6:11 PM Age: 84 years old Clinical indication: Cough and fever; Prior surgery; Surgery type: Breast reduction, stent; Additional info: Syncope TECHNIQUE: Imaging protocol: XR of the chest Views: 1 view. COMPARISON: CR XR chest 1V portable [id number] 12/20/2019 5:27 AM FINDINGS: Lungs: Currently no visible evidence of active interstitial or alveolar airspace disease. Pleural space: Minimal blunting of the left costophrenic angle which may reflect a tiny left pleural effusion versus pleural thickening. Heart/Mediastinum: Cardiomegaly with arteriosclerosis. Bones/joints: Unremarkable for age. XR/XR chest 1V portable [id number] IMPRESSION: Nonacute. Dictated By:Julio C Schumacher Signed By:Julio C SchumacherSisonia Date/Time:01/22/201851 DD/ 49 Discharge Plan Discharge Patient Disposition: Admitted As Inpatient Admit Provider: Nadege Simons Clinical Impression: Hypercalcemia, APOLONIA (acute kidney injury), Multiple myeloma Condition: Stable Coding Level of Care Code ED Test Engine Operator for Emmyg Delmer
[2020-01-23 05:31] LABS: SARS Covid-2 Antigen Negative (Negative)
[2020-01-23 05:56] LABS: Hematocrit 27.4 % (37.0-47.0); Hemoglobin 8.5 g/dL (11.5-15.3); Mean Corpuscular Volume 96.8 fL (81-99); Mean Platelet Volume 10.6 fL (7.4-10.4); Platelet Count 49 10^3/cmm (130-400); Red Blood Count 2.83 10^6/uL (4.1-5.3); Red Cell Distribution Width 19.7 % (12.1-15.1); White Blood Count 2.8 10^3/uL (4.0-10.0)
[2020-01-23 06:24] LABS: Alanine Aminotransferase 14 U/L (0-33); Alkaline Phosphatase 47 IU/L (35-105); Anion Gap 10.9 (5-19); Aspartate Amino Transferase 39 U/L (0-32); Blood Urea Nitrogen 20 mg/dL (8-23); Calcium 11.6 mg/dL (8.5-10.5); Carbon Dioxide 20 mmol/L (22-29); Chloride 107 mmol/L (98-107); Globulin 8.1 g/dL (1.3-4.6); Glucose 83 mg/dL (65-115); Osmolality Calculated 280 mOsm/kg (285-295); Potassium 3.9 mmol/L (3.5-5.1); Sodium 134 mmol/L (136-145); Total Protein 10.1 g/dL (6.6-8.7)
[2020-01-23 06:32] LABS: Total Bilirubin 0.4 mg/dL (0.15-1.2)
[2020-01-23 07:25] LABS: Basophils % 0.4 %; Eosinophils % 1.1 %; Lymphocytes % 35.9 %; Monocytes # 0.4 10^3/uL (0.2-0.9); Neutrophils # 1.39 10^3/uL (1.8-7.7); Neutrophils % 48.9 %; Nucleated Red Blood Cells % 0 %
[2020-01-23 07:29] LABS: Slide Review Slide Review Perform
[2020-01-23] MEDS: atorvastatin 40 mg Tablet PO (09:26)
[2020-01-23] MEDS: levothyroxine 125 mcg Tablet PO (09:26)
[2020-01-23] MEDS: sennosides-docusate Tablet 1 TAB PO (09:26)
[2020-01-23] MEDS: metoprolol tartrate 25 mg Tablet 50 MG PO (09:26)
[2020-01-23] MEDS: clopidogrel 75 mg Tablet PO (09:27)
[2020-01-23] MEDS: isosorbide mononitrate 20 mg Tablet 15 MG PO (09:27)
[2020-01-23] MEDS: amlodipine 10 mg Tablet PO (09:27)
[2020-01-23] MEDS: aspirin 81 mg EC Tablet PO (09:27)
[2020-01-23] MEDS: pantoprazole DR 40 mg Tablet PO (09:27)
--- NOTE | 2020-01-23 12:22 | P.DS_ITS ---
Discharge Providers Date of Admission: 01/22/20 20:01 Date of Discharge: January 23, 2020 Attending Provider at Admission: Nadege Simons MD Attending Provider at Discharge: Otto Gilbert MD Primary Care Provider: Saul Nieto Jr, MD Diagnoses at Discharge Discharge Diagnosis (1) Hypercalcemia: Status: Acute (2) APOLONIA (acute kidney injury): Status: Acute (3) CAD (coronary artery disease): Status: Acute Qualifiers: Coronary Disease-Associated Artery/Lesion type: [place] artery [place] vs. transplanted heart: [place] heart Associated angina: angina presence unspecified Qualified Code(s): I25.10 - Atherosclerotic heart disease of [place] coronary artery without angina pectoris (4) Multiple myeloma: Status: Acute Qualifiers: Multiple myeloma remission status: not in remission Qualified Code(s): C90.00 - Multiple myeloma not having achieved remission Reason for Visit Reason for Visit: fever, cough Hospital Course Hospital Course This is a 84-year-old female female with a past medical history of IgG kappa myeloma on chemotherapy, noncompliant with her prednisone and melphalan recent history of stent placement to LAD in December 17, 2019, on aspirin, Plavix, heart failure with reduced ejection fraction, peripheral neuropathy, hypertension, diabetes, recent history of pneumonia and NSTEMI and recurrent pleural effusion who presents to [facility] due to concerns for hypercalcemia Patient was admitted to [facility] for hypercalcemia secondary to multiple myeloma, calcium on admission was 13.2, after discussion with Dr. Chow, patient received IV hydration and pamidronate. She also had acute kidney injury on admission, creatinine 1.4, likely secondary to multiple myeloma. She denies any chest pain, any palpitations, no abdominal pain, no nausea, no vomiting, no confusion, no weakness. On the morning of discharge, patient's creatinine was 1.4, serum calcium was down to 11.6, patient was feeling well, wanted to go home. After discussion with Dr. Chow, patient will follow with Dr. Chow on Monday for repeat CMP, will likely require another permit retained dose. Unfortunate she is not a candidate right now for zoledronic acid given her creatinine 1.4. Patient was advised to drink plenty of electrolyte balance fluids, repeat CT on Monday, and follow-up with Dr. Chow on Monday. She was advised if she were to abdominal pain, muscle weakness, bone pain, confusion, fatigue to come back to the emergency room. I also had an extensive discussion with patient about her compliance with prednisone and melphalan therapy for her multiple myeloma, this has been an an issue as outpatient after discussion with Dr. Chow, patient was advised with compliance of prednisone and melphalan. Patient's hemoglobin on discharge was 8.5, she is on aspirin and Plavix for recent history of CAD status post stenting, she was advised to continue aspirin and Plavix, repeat CBC on Monday, if she were to have any bloody or black stools, lightheadedness, dizziness, hematemesis or hemoptysis come back to the emergency room. Patient's platelet count on discharge was 49,000, she is on aspirin and Plavix for recent history of CAD status post I&D, she was advised to continue aspirin and Plavix, repeat CBC on Monday, if she were to have fall, uncontrolled breathing, bloody or black stools, lightheadedness or dizziness, headaches or blurry vision come back to the emergency room Patient's white blood cell count on discharge was 2.8, she was advised to monitor for fevers or chills, continue to socially isolate, soft distance, for wearing a facemask. If she were to have any fevers or chills or shortness of breath come back to emergency room. Physical Exam Const: COMMON NORMALS: no acute distress and patient oriented x3 HENMT: COMMON NORMALS: normocephalic HEAD & SCALP: normocephalic Neck/C-Spine: COMMON NORMALS: no JVD Resp: COMMON NORMALS: normal respiratory effort, No retractions, No use of accessory muscles and clear to auscultation bilaterally AUSCULTATION: clear to auscultation bilaterally Cardio: COMMON NORMALS: no JVD, regular rate, regular rhythm, S1 normal heart sound present and S2 normal heart sound present RATE: regular rate RHYTHM: regular rhythm HEART SOUNDS: S1 normal heart sound present and S2 normal heart sound present GI: COMMON NORMALS: Normal to inspection, nondistended, normoactive bowel sounds present, Soft to palpation, non-tender, No hepatosplenomegaly present, no masses and no bruits PALPATION: Yes Soft to palpation and Yes No hepatosplenomegaly present Extremity: COMMON NORMALS: capillary refill normal, no clubbing, cyanosis or edema, no calf tenderness and no pedal edema Neuro: COMMON NORMALS: patient oriented x3 Psych: COMMON NORMALS: mental status grossly normal Discharge Data Data Completed and Pending: Completed Studies During Hospitalization Category Date Time Status XR chest 1V blanca ble [id number] Stat Exams 01/22/20 15:46 Completed Pending at discharge Category Date Time Status Complete Blood Co unt w/Auto AM LABS Lab 01/24/20 04:00 Ordered Complete Blood Co unt w/Auto AM LABS Lab 01/25/20 04:00 Ordered Comprehensive Met abolic Panel AM LA BS Lab 01/24/20 04:00 Ordered Comprehensive Met abolic Panel AM LA BS Lab 01/25/20 04:00 Ordered Urine Culture Sta t Lab 01/22/20 18:28 Received Labs from last 24 hours 01/23/20 01/23/20 01/23/20 05:00 05:00 04:37 WBC 2.8 L RBC 2.83 L Hgb 8.5 L Hct 27.4 L MCV 96.8 MCH 30.0 MCHC 31.0 RDW 19.7 H Plt Count 49 L MPV 10.6 H Neut % (Auto) 48.9 Lymph % (Auto) 35.9 [place] % (Auto) 13.0 Eos % (Auto) 1.1 Baso % (Auto) 0.4 Neut # (Auto) 1.39 L Lymph # (Auto) 1.0 [place] # (Auto) 0.4 Eos # (Auto) 0.0 Baso # (Auto) 0.0 Nucleated RBC % (a uto) 0 Total Counted Cancelled Atypical Lymphs % Cancelled Absolute Neutrophi ls Cancelled Segmented Neutroph ils Cancelled Abs Segm Neuts (Ma n) Cancelled Band Neutrophils Cancelled Abs Band Neuts (Ma n) Cancelled Absolute Lymphocyt es Cancelled Lymphocytes (Man[place] l) Cancelled Monocytes (Manual) Cancelled Absolute Monocytes Cancelled Eosinophils (Man[place] l) Cancelled Absolute Eosinophi ls Cancelled Basophils (Manual) Cancelled Absolute Basophils Cancelled Metamyelocytes Cancelled Myelocytes Cancelled Promyelocytes Cancelled Nucleated RBCs Cancelled Nucleated RBCs # 0.0 Pathologist Review Cancelled Hypersegmented Marlo ys Cancelled Blast Cells Cancelled Smudge Cells Cancelled Toxic Granulation Cancelled Toxic Vacuolation Cancelled Dohle Bodies Cancelled Mandy Rods Cancelled Platelet Estimate Cancelled Giant Platelets Cancelled Polychromasia Cancelled Hypochromasia Cancelled Poikilocytosis Cancelled Basophilic Stippli ng Cancelled Anisocytosis Cancelled Microcytosis Cancelled Macrocytosis Cancelled Spherocytes Cancelled Sickle Cells Cancelled Target Cells Cancelled Tear Drop Cells Cancelled Ovalocytes Cancelled Stomatocytes Cancelled Helmet Cells Cancelled José Miguel-Maribell Hughes s Cancelled [place] Cells Cancelled Crenated Cell Cancelled Acanthocytes (Spur ) Cancelled Rouleaux Cancelled Schistocytes Cancelled RBC Morph Comment Cancelled ESR D-Dimer Sodium 134 L Potassium 3.9 Chloride 107 Carbon Dioxide 20 L Anion Gap 10.9 BUN 20 Creatinine 1.4 H GFR Calculation Not Reportable Glucose 83 Calculated Osmolal ity 280 L Lactate Calcium 11.6 H Total Bilirubin 0.4 AST 39 H ALT 14 Alkaline Phosphata se 47 C-Reactive Protein Total Protein 10.1 H Albumin 2.0 L Globulin 8.1 H Lipase Urine Color Urine Appearance Urine pH Ur Specific Gravit y Urine Protein Urine Glucose (UA) Urine Ketones Urine Blood Urine Nitrate Urine Bilirubin Urine Urobilinogen Ur Leukocyte Chrissy ase Urine RBC Urine WBC Ur Squamous Epith Cells Ur Transition Epit h Cell Amorphous Sediment Urine Bacteria Fine Granular Cast s Urine Mucus Influenza Type A A g Influenza Type B A g SARS-CoV-2 Ag (Rap id) Negative 01/22/20 01/22/20 01/22/20 18:45 18:28 18:13 WBC RBC Hgb Hct MCV MCH MCHC RDW Plt Count MPV Neut % (Auto) Lymph % (Auto) [place] % (Auto) Eos % (Auto) Baso % (Auto) Neut # (Auto) Lymph # (Auto) [place] # (Auto) Eos # (Auto) Baso # (Auto) Nucleated RBC % (a uto) Total Counted Atypical Lymphs % Absolute Neutrophi ls Segmented Neutroph ils Abs Segm Neuts (Ma n) Band Neutrophils Abs Band Neuts (Ma n) Absolute Lymphocyt es Lymphocytes (Man[place] l) Monocytes (Manual) Absolute Monocytes Eosinophils (Man[place] l) Absolute Eosinophi ls Basophils (Manual) Absolute Basophils Metamyelocytes Myelocytes Promyelocytes Nucleated RBCs Nucleated RBCs # Pathologist Review Hypersegmented Marlo ys Blast Cells Smudge Cells Toxic Granulation Toxic Vacuolation Dohle Bodies Mandy Rods Platelet Estimate Giant Platelets Polychromasia Hypochromasia Poikilocytosis Basophilic Stippli ng Anisocytosis Microcytosis Macrocytosis Spherocytes Sickle Cells Target Cells Tear Drop Cells Ovalocytes Stomatocytes Helmet Cells Val[place]-Aldie Saul s [place] Cells Crenated Cell Acanthocytes (Spur ) Rouleaux Schistocytes RBC Morph Comment ESR D-Dimer Sodium Potassium Chloride Carbon Dioxide Anion Gap BUN Creatinine GFR Calculation Glucose Calculated Osmolal ity Lactate 1.8 Calcium Total Bilirubin AST ALT Alkaline Phosphata se C-Reactive Protein Total Protein Albumin Globulin Lipase Urine Color Yellow Urine Appearance Hazy A Urine pH 5 Ur Specific Gravit y 1.015 Urine Protein 1+ H Urine Glucose (UA) Norm Urine Ketones Negative Urine Blood 2+ H Urine Nitrate Negative Urine Bilirubin Neg Urine Urobilinogen Neg Ur Leukocyte Chrissy ase Negative Urine RBC 5-10 H Urine WBC 0-4 H Ur Squamous Epith Cells 0-4 H Ur Transition Epit h Cell 0-4 Amorphous Sediment 1+ Urine Bacteria 1+ H Fine Granular Cast s 5-10 H Urine Mucus 2+ Influenza Type A A g Negative Influenza Type B A g Negative SARS-CoV-2 Ag (Rap id) 01/22/20 01/22/20 01/22/20 18:13 18:13 18:13 WBC RBC Hgb Hct MCV MCH MCHC RDW Plt Count MPV Neut % (Auto) Lymph % (Auto) [place] % (Auto) Eos % (Auto) Baso % (Auto) Neut # (Auto) Lymph # (Auto) [place] # (Auto) Eos # (Auto) Baso # (Auto) Nucleated RBC % (a uto) Total Counted Atypical Lymphs % Absolute Neutrophi ls Segmented Neutroph ils Abs Segm Neuts (Ma n) Band Neutrophils Abs Band Neuts (Ma n) Absolute Lymphocyt es Lymphocytes (Man[place] l) Monocytes (Manual) Absolute Monocytes Eosinophils (Manua l) Absolute Eosinophi ls Basophils (Manual) Absolute Basophils Metamyelocytes Myelocytes Promyelocytes Nucleated RBCs Nucleated RBCs # Pathologist Review Hypersegmented Marlo ys Blast Cells Smudge Cells Toxic Granulation Toxic Vacuolation Dohle Bodies Mandy Rods Platelet Estimate Giant Platelets Polychromasia Hypochromasia Poikilocytosis Basophilic Stippli ng Anisocytosis Microcytosis Macrocytosis Spherocytes Sickle Cells Target Cells Tear Drop Cells Ovalocytes Stomatocytes Helmet Cells Valdez-Aldie Saul s [place] Cells Crenated Cell Acanthocytes (Spur ) Rouleaux Schistocytes RBC Morph Comment ESR > 120 H D-Dimer 0.88 H Sodium 132 L Potassium 4.2 Chloride 106 Carbon Dioxide 21 L Anion Gap 9.2 BUN 25 H Creatinine 1.4 H GFR Calculation Not Reportable Glucose 104 Calculated Osmolal ity 279 L Lactate Calcium 12.2 H Total Bilirubin 0.6 AST 45 H ALT 17 Alkaline Phosphata se 61 C-Reactive Protein 18.7 H Total Protein 10.9 H Albumin 2.4 L Globulin 8.5 H Lipase 201 H Urine Color Urine Appearance Urine pH Ur Specific Gravit y Urine Protein Urine Glucose (UA) Urine Ketones Urine Blood Urine Nitrate Urine Bilirubin Urine Urobilinogen Ur Leukocyte Chrissy ase Urine RBC Urine WBC Ur Squamous Epith Cells Ur Transition Epit h Cell Amorphous Sediment Urine Bacteria Fine Granular Cast s Urine Mucus Influenza Type A A g Influenza Type B A g SARS-CoV-2 Ag (Rap id) 01/22/20 18:13 WBC 3.9 L RBC 2.94 L Hgb 8.7 L Hct 27.9 L MCV 94.9 MCH 29.6 MCHC 31.2 RDW 19.6 H Plt Count 61 L MPV 10.5 H Neut % (Auto) 51.9 Lymph % (Auto) 33.1 [place] % (Auto) 13.2 Eos % (Auto) 1.0 Baso % (Auto) 0.0 Neut # (Auto) 2.01 Lymph # (Auto) 1.3 [place] # (Auto) 0.5 Eos # (Auto) 0.0 Baso # (Auto) 0.0 Nucleated RBC % (a uto) 0 Total Counted Atypical Lymphs % Absolute Neutrophi ls Segmented Neutroph ils Abs Segm Neuts (Ma n) Band Neutrophils Abs Band Neuts (Ma n) Absolute Lymphocyt es Lymphocytes (Manua l) Monocytes (Manual) Absolute Monocytes Eosinophils (Manua l) Absolute Eosinophi ls Basophils (Manual) Absolute Basophils Metamyelocytes Myelocytes Promyelocytes Nucleated RBCs Nucleated RBCs # 0.0 Pathologist Review Hypersegmented Marlo ys Blast Cells Smudge Cells Toxic Granulation Toxic Vacuolation Dohle Bodies Mandy Rods Platelet Estimate Giant Platelets Polychromasia Hypochromasia Poikilocytosis Basophilic Stippli ng Anisocytosis Microcytosis Macrocytosis Spherocytes Sickle Cells Target Cells Tear Drop Cells Ovalocytes Stomatocytes Helmet Cells Valdez-Aldie Saul s [place] Cells Crenated Cell Acanthocytes (Spur ) Rouleaux Schistocytes RBC Morph Comment ESR D-Dimer Sodium Potassium Chloride Carbon Dioxide Anion Gap BUN Creatinine GFR Calculation Glucose Calculated Osmolal ity Lactate Calcium Total Bilirubin AST ALT Alkaline Phosphata se C-Reactive Protein Total Protein Albumin Globulin Lipase Urine Color Urine Appearance Urine pH Ur Specific Gravit y Urine Protein Urine Glucose (UA) Urine Ketones Urine Blood Urine Nitrate Urine Bilirubin Urine Urobilinogen Ur Leukocyte Chrissy ase Urine RBC Urine WBC Ur Squamous Epith Cells Ur Transition Epit h Cell Amorphous Sediment Urine Bacteria Fine Granular Cast s Urine Mucus Influenza Type A A g Influenza Type B A g SARS-CoV-2 Ag (Rap id) Vitals: Last Vital Signs Temp 97.6 F 01/23/20 11:21 Pulse 78 01/23/20 11:21 Resp 18 01/23/20 11:21 BP 131/54 01/23/20 11:21 Pulse Ox 94 01/23/20 11:21 Discharge Plan Discharge Patient Disposition: Home Condition: Stable Prescriptions: Continued acetaminophen [Tylenol 8 Hour] 650 mg tablet extended release 650 mg PO Q12H RF: 0 sennosides-docusate sodium [Senna Plus] 8.6-50 mg tablet 1 tab-cap PO DAILY RF: 0 pantoprazole 40 mg tablet,delayed release (DR/EC) 40 mg PO DAILY RF: 0 potassium chloride 20 mEq tablet extended release 20 meq PO DAILY RF: 0 clopidogrel 75 mg tablet 75 mg PO DAILY Qty: 30 RF: 3 metoprolol tartrate 25 mg tablet 50 mg PO BID Qty: 180 RF: 3 isosorbide mononitrate 20 mg tablet 15 mg PO DAILY Qty: 30 RF: 0 melphalan 2 mg tablet See Rx Instructions .ROUTE .COMPLEX RF: 0 prednisone 20 mg tablet See Rx Instructions .ROUTE .COMPLEX RF: 0 Euthyrox 125 mcg tablet 125 mcg PO DAILY RF: 0 aspirin 81 mg Tablet,Delayed Release (Dr/Ec) 81 mg PO DAILY Qty: 30 RF: 0 amlodipine 10 mg Tablet 10 mg PO DAILY Qty: 30 RF: 0 atorvastatin 40 mg Tablet 40 mg PO DAILY Qty: 30 RF: 0 furosemide 40 mg Tablet 40 mg PO BID Qty: 0 RF: 0 Discontinued Complete Multivitamin Tablet 1 tab PO DAILY RF: 0 Discharge Orders: Discharge Order (Routine); Ordered 01/23/20 Ordered By: Otto Gilbert Other Ambulatory Orders: Complete Blood Count w/Auto (Routine) Timeframe: 1 Day Location: Determined by Patient Ordered By: Otto Gilbert Comprehensive Metabolic Panel (Routine) Timeframe: 1 Week Facility: [facility] - Location: Lab - Main Lab Ordered By: Otto Gilbert Referrals: Kris Chow MD [Hospitalist] - 4-7 days (NEEDS TO SEE DR. CHOW ON MONDAY [facility] should call you with an appointment Monday. If you don't hear from them please call. ) Discharge Diet: Cardiac Discharge Activity: Resume usual activity Patient Instructions: Acute Kidney Injury (DC), Heart Healthy Diet (DC), Hypercalcemia (DC) Activity Restrictions/Additional Instructions: -Continue to hydrate well, drink plenty of electrolyte balance fluids -Please take prednisone and melphalan as prescribed -If you have chest pain, palpitations, muscle spasms come to the emergency room -Please follow-up with Dr. Chow with a repeat CMP and CBC on Monday -Your hemoglobin on discharge is 8.5, platelet count 49 -If you have any bloody or black stools, lightheadedness, dizziness, uncontro lled bleeding come to the emergency room Discharge Attestations Time Spent in Discharge Care*: less than 30 min Status at Discharge: Cognitive status at discharge: cognitively intact , Behavioral status at discharge: cooperative , Quality Metrics Clinical Quality Measures During this hospital stay, did patient experience: None Coding Level of Care Code Acute [employer] for Chg Fwd Diagnoses Hypercalcemia E83.52 APOLONIA (acute kidney injury) N17.9 CAD (coronary artery disease) I25.10 Coronary Disease-Associated Artery/Lesion type: [place] artery [place] vs. transplanted heart: [place] heart Associated angina: angina presence unspecified Multiple myeloma C90.00 Multiple myeloma remission status: not in remission
--- NOTE | 2020-01-23 14:00 | PC.NURSE ---
Dc instruction given, voiced full understanding, IV DC'd cath intact, bleeding controlled with 2x2 and coban. To main entrance via wheelchair to private vehicle with zero difficulties
== END 2020-01-23 14:00 | disposition home or self-care (01) ==
LOC: ER 17:53 → MEDSURG 20:37
PROVIDERS: Nurse Practitioner Family; Admitting Provider Student in an Organized Health Care Education/Training Program; Emergency Provider Family Medicine; PCP Family Medicine; Visit Provider Family Medicine
DX: E83.52 Hypercalcemia (principal); N17.9 Acute kidney failure, unspecified; I25.10 Atherosclerotic heart disease of native coronary artery without angina pectoris; C90.00 Multiple myeloma not having achieved remission; Z95.5 Presence of coronary angioplasty implant and graft; E11.42 Type 2 diabetes mellitus with diabetic polyneuropathy; Z79.82 Long term (current) use of aspirin; M19.90 Unspecified osteoarthritis, unspecified site; E78.5 Hyperlipidemia, unspecified; I11.0 Hypertensive heart disease with heart failure; I50.9 Heart failure, unspecified; Z91.14 Patient's other noncompliance with medication regimen
CPT/HCPCS: 12345; 36415; 71045; 80053; 81001; 83605; 83690; 85025; 85378; 85651; 86140; 87086; 87426; 87804; 96365; 96372; 99282; 99285; G0378; J1650; J2430; J7030; J7040

== ENCOUNTER 2020-02-26 07:44 | Outpatient (RCR) | payer MEDICARE, SELFPAY ==
[2020-01-28 13:45] LABS: Basophils % 0.4 %; Eosinophils % 0.8 %; Hematocrit 26.5 % (37.0-47.0); Hemoglobin 7.9 g/dL (11.5-15.3); Lymphocytes # 0.8 10^3/uL (0.8-4.8); Lymphocytes % 33.2 %; Mean Corpuscular HGB Conc 29.8 g/dL (30.0-36.0); Mean Corpuscular Hemoglobin 29.7 pg (28.0-34.0); Mean Corpuscular Volume 99.6 fL (81-99); Mean Platelet Volume 11.4 fL (7.4-10.4); Monocytes # 0.2 10^3/uL (0.2-0.9); Neutrophils # 1.33 10^3/uL (1.8-7.7); Neutrophils % 55.2 %; Nucleated Red Blood Cells % 0 %; Platelet Count 45 10^3/cmm (130-400); Red Blood Count 2.66 10^6/uL (4.1-5.3); Red Cell Distribution Width 20.3 % (12.1-15.1); White Blood Count 2.4 10^3/uL (4.0-10.0)
[2020-01-28 14:00] LABS: Anion Gap 11.8 (5-19); Blood Urea Nitrogen 16 mg/dL (8-23); Calcium 11.9 mg/dL (8.5-10.5); Carbon Dioxide 18 mmol/L (22-29); Chloride 108 mmol/L (98-107); Glucose 102 mg/dL (65-115); Osmolality Calculated 279 mOsm/kg (285-295); Potassium 3.8 mmol/L (3.5-5.1); Sodium 134 mmol/L (136-145)
[2020-01-30] MEDS: sodium chloride 0.9% 250 ML 999 ML IV (10:00)
[2020-01-30] MEDS: diphenhydrAMINE 25 mg Capsule PO (10:10)
[2020-01-30] MEDS: acetaminophen 325 mg Tablet 650 MG PO (10:10)
[2020-01-30 10:50] VITALS: BP 125/56; PULSE 67; RESP 18; TEMP 37.2; O2SAT 98
[2020-01-30] MEDS: FUROsemide 10 mg/mL SDV 2mL 40 MG IV (12:55)
[2020-02-03 10:25] LABS: Eosinophils % 0.9 %; Hematocrit 29.2 % (37.0-47.0); Hemoglobin 9.4 g/dL (11.5-15.3); Lymphocytes # 0.5 10^3/uL (0.8-4.8); Lymphocytes % 43.1 %; Mean Corpuscular HGB Conc 32.2 g/dL (30.0-36.0); Mean Corpuscular Volume 93.3 fL (81-99); Mean Platelet Volume 12.9 fL (7.4-10.4); Monocytes # 0.3 10^3/uL (0.2-0.9); Monocytes % 21.6 %; Neutrophils % 33.5 %; Nucleated Red Blood Cells % 0 %; Red Blood Count 3.13 10^6/uL (4.1-5.3); Red Cell Distribution Width 18.9 % (12.1-15.1); White Blood Count 1.2 10^3/uL (4.0-10.0)
[2020-02-03 10:43] LABS: Alanine Aminotransferase 11 U/L (0-33); Albumin Level 2.2 g/dL (3.5-5.2); Alkaline Phosphatase 62 IU/L (35-105); Anion Gap 12.7 (5-19); Aspartate Amino Transferase 34 U/L (0-32); Blood Urea Nitrogen 13 mg/dL (8-23); Calcium 12.1 mg/dL (8.5-10.5); Carbon Dioxide 17 mmol/L (22-29); Chloride 105 mmol/L (98-107); Globulin 9.3 g/dL (1.3-4.6); Glucose 141 mg/dL (65-115); Osmolality Calculated 274 mOsm/kg (285-295); Potassium 3.7 mmol/L (3.5-5.1); Sodium 131 mmol/L (136-145); Total Protein 11.5 g/dL (6.6-8.7)
[2020-02-03 10:48] LABS: Total Bilirubin 0.7 mg/dL (0.15-1.2)
[2020-02-03 11:26] LABS: Neutrophils # 0.39 10^3/uL (1.8-7.7); Platelet Count 24 10^3/cmm (130-400)
[2020-02-03 11:27] LABS: Slide Review Slide Review Perform
[2020-02-03] MEDS: sodium chloride 0.9% (100 ml) 100 ML 200 ML (11:45)
[2020-02-03] MEDS: sodium chloride 0.9% 100 mL Bag IV (12:00)
[2020-02-06 15:20] LABS: Eosinophils % 1.3 %; Hematocrit 26.7 % (37.0-47.0); Hemoglobin 8.2 g/dL (11.5-15.3); Lymphocytes # 0.7 10^3/uL (0.8-4.8); Lymphocytes % 47.7 %; Mean Corpuscular HGB Conc 30.7 g/dL (30.0-36.0); Mean Corpuscular Hemoglobin 29.9 pg (28.0-34.0); Mean Corpuscular Volume 97.4 fL (81-99); Mean Platelet Volume 10.5 fL (7.4-10.4); Monocytes # 0.4 10^3/uL (0.2-0.9); Monocytes % 22.9 %; Neutrophils % 27.4 %; Nucleated Red Blood Cells % 0 %; Red Blood Count 2.74 10^6/uL (4.1-5.3); Red Cell Distribution Width 18.9 % (12.1-15.1); White Blood Count 1.5 10^3/uL (4.0-10.0)
[2020-02-06 15:29] LABS: Anion Gap 11.4 (5-19); Blood Urea Nitrogen 16 mg/dL (8-23); Calcium 12.9 mg/dL (8.5-10.5); Carbon Dioxide 17 mmol/L (22-29); Chloride 106 mmol/L (98-107); Glucose 100 mg/dL (65-115); Osmolality Calculated 271 mOsm/kg (285-295); Potassium 4.4 mmol/L (3.5-5.1); Sodium 130 mmol/L (136-145)
[2020-02-06 16:36] LABS: Neutrophils # 0.42 10^3/uL (1.8-7.7); Platelet Count 24 10^3/cmm (130-400); Slide Review Slide Review Perform
--- NOTE | 2020-02-08 21:23 | ONC FU_ITS ---
[facility] Patient Note Patient: Alta Red Unit #: [id number]: [id number] Dictated By: Otto SueDate of Visit: Jan 29, 2020 Onc MED Follow-Up/Prog Note Chief Complaint: Myeloma. History of Present Illness: Mrs Red is an 84 year-old woman with IgG kappa myeloma. She had presented to Dr. Nieto on 10/24/2017 with complaints of dizziness/lightheadedness, fatigue, and anorexia. She reported that at times she felt like passing out and having to lie down. She reported having problems with memory and she complained that she had been sleeping a lot. Her CBC showed low hemoglobin at 8.8 g, white blood cell count borderline at 4300 and platelet count mildly decreased at 103,000. Her comprehensive metabolic profile showed elevated BUN and creatinine at 23 and 1.42 mg/dL and significantly elevated serum calcium at 14.5 mg/dL with albumin low at 2.5 g/dL. The calculated serum globulin was significantly elevated at 7.9 g/dL. Bone marrow aspiration/biopsy on 10/27/2017 showed hypercellular marrow with 63% plasma cells, consistent with myeloma. At that time, she was given an infusion of sodium pamidronate for the hypercalcemia, and she also was given dexamethasone 40 mg daily for 4 days. Skeletal survey on 10/27/2017 showed evidence of diffuse bone demineralization but without evidence of large osteolytic lesion. Subcentimeter lucent foci in the [place] bilaterally were felt to be consistent with osteoporosis, myelomatous lesions, or metastatic disease. Serum protein electrophoresis and 11/20/2017 showed IgG kappa paraprotein quantitating at 4.1 g/dL. The free light chain assay showed elevated free kappa light chain at 228.24 mg/L with elevated kappa/lambda ratio at 17.40. She returned on 11/16/2017 to begin treatment with Velcade/Revlimid/dexamethasone. Dr Muñoz opted to use a weekly Velcade regimen on a 21/28 day schedule. Due to her age and renal function, the Revlimid was initiated at a reduced dosage of 10 mg daily for 21 days. The dexamethasone was reduced to 20 mg weekly. At that time, her calcium had become elevated again at 10.3 mg/dL with albumin 2.2 g/dL. Her renal function had improved with creatinine down to 1.0 mg/dL. As such, she was given zoledronic acid 3.5 mg by IV infusion. On 11/20/2017 she came in with a 2-day history of fever and chills. A specific source of infection was not identified other than her chest x-ray was suspicious for possible pneumonia. She was treated empirically with Levaquin, it was opted to put her Revlimid on hold, as she also was having diarrhea at that point. Her follow-up CBC on 11/23/2017 showed further decline in hemoglobin to 6.4 g, and the following day she was transfused 2 units of PRBC. She did receive her day 8 Velcade, and she was able to return for day 15 Velcade on 11/29/2017. Hemoglobin at that point was adequate at 9.9 g. She then continued her 2nd cycle on 12/13/2017 with the Revlimid omitted. The Velcade was again administered weekly for 3 weeks, and the dexamethasone was changed to 20 mg twice weekly. A repeat protein electrophoresis on 12/25/2017 showed significant improvement with the M protein quantitating at 0.73 g/dL. She then continued with cycle 3 of Velcade/dexamethasone on 01/11/2018, with cycle 4 on 02/07/2018, with cycle 5 on 03/06/2018, and with cycle 6 on 04/04/2018. Her repeat serum protein electrophoresis on 05/01/2018 showed 2 monoclonal protein bands which together quantitated at 0.21 g/dL compared to 0.31 g/dL on 03/06/2018. The serum free light chain assay showed normal kappa light chain at 1.28 mg/dL and normal lambda light chain at 1.52 mg/dL with the kappa/lambda ratio normal at 0.8421. She was seen for a follow-up visit on 05/02/2018, and she then began maintenance Revlimid at 5 mg daily. As of 05/29/2018 the Revlimid was put on hold due to worsening skin eruption. The skin eruption had initially continued to worsen somewhat after stopping the Revlimid, but it then gradually resolved. Dr Muñoz had seen her for a follow-up visit on 07/17/2018. At that point she had only minimal residual M protein. She appeared stable clinically, and given the side effects she experienced with her treatment, it was opted to just follow her on observation/expectant management. Her other medical illnesses include hypertension, type II diabetes with peripheral neuropathy, and degenerative arthritis. She is a nonsmoker. INTERIM HISTORY: As of March, there was a significant increase in her M protein and in her kappa free light chain. She had become mildly anemic. It was clear at that point that her myeloma was progressing, and we opted to proceed to a trial of second line therapy with daratumumab in combination with carfilzomib and dexamethasone. She began her day 1 treatment on 05/14/2019, which she tolerated well. However, following her day 2 treatment she was admitted to the hospital with acute respiratory distress/flash pulmonary edema. Her clinical course was complicated by non-ST elevation myocardial infarction, acute renal injury, and thrombocytopenia. She did have a good recovery, and she was then followed on observation/expectant management. As of July 2019 her M protein had increased significantly, to 2.65 g/dL. At that point she had become mildly anemic, hemoglobin 10.4 g. Her renal function, though, remained normal with creatinine 0.78 mg/dL. Restaging PET/CT on 08/29/2019 was felt to be likely a negative examination with no evidence for osseous or soft tissue tumor involvement. There were findings which were felt to most likely reflect prominent arthritic changes. With the significant increase in her M protein, she started 3rd line treatment with pomalidomide in combination with ixazomib and dexamethasone, cycle 1 beginning on 09/13/2019. The pomalidomide was put on hold due to side effects, the most significant being fatigue, fever, and just not feeling good generally. As of her follow-up visit on 09/30/2019 the ixazomib was also put on hold. She then continued treatment with dexamethasone 20 mg [address] Muñoz had seen her for a follow-up visit on 10/15/2019. At that time she planning to undergo left total hip arthroplasty. The procedure had been scheduled for 10/30/2019. As such, Dr Muñoz had stopped her steroid therapy. However, her hip surgery ended up being canceled, because of anemia and hypercalcemia. Dr Muñoz had seen her for a follow-up visit on 11/19/2019. At that time, he had discussed the possibility of continuing further treatment either with melphalan/prednisone or with belantamab [id number]. She was significantly anemic with hemoglobin 8.5 g. Renal function was still normal with creatinine 0.81 mg/dL, but calcium was significantly elevated at 12.3 mg/dL. She was given an infusion of sodium pamidronate. Her further clinical course was complicated by hospital admission for cardiac ischemia requiring angioplasty with stent placement to the LAD. She had to subsequent hospitalizations for congestive heart failure/pneumonia. She was discharged home on 12/22/2019. During that time, she was transfused on 2 different occasions. Ms. Red is here today for follow-up. She had followup on 01/13/2020 and stated that she was feeling better and that she had family coming in for the holidays and requested to wait on starting Melphalan until after . Her labs were drawn on 01/14/2020. She was found to be anemic with a hemoglobin of 8.0, her platelet count was 78,000 and her calcium level was 13.2. She returned to the clinic on January 16, 2020 at which time she had 2 units of packed red blood cells along with 4 mg of Zometa for the hypercalcemia. At that time she was instructed that she needed to go ahead and start the melphalan regardless of having family and or not due to the fact that her myeloma seem to be progressing rapidly. Her IgG on 01/14/2020 was 8316. Her kappa free light chain was 404.5 lambda free light chain was reported at 2.2. Mrs. Red verbalized understanding and she and her daughter did start the melphalan 16 mg for 4 days straight on 01/16/2020. She states she tolerated it well. She had follow-up labs on 01/21/2020 her hemoglobin had improved to 9.2 platelet count was 64,000 and her ANC was 3000. Her repeat calcium at that time was 13.1. She had just had Zometa 4 mg on 01/16/2020 and 60 mg of pamidronate on 01/02/2020. Mrs. Red is here today for follow-up. This is 2 weeks post starting the melphalan. Her white count from 01/28/2020 is 2.4, hemoglobin is 7.9 and platelets were 45,000. She reports that she has had a little bit of queasiness but seems to get relief with her antiemetics well. She states her energy is low as would be expected due to the anemia. She denies any mouth sores, skin rashes, fever or chills. Her appetite comes and goes. The for the most part is good. She has no new specific complaints today. She denies any chest pain or shortness of breath. She denies any bone pain. She has had fatigue but states is probably no worse than what has been normal for her. She denies any new neuropathy. Her ECOG is 2. Past Medical History: Degenerative arthritis Hypertension Hypothyroidism Nephrolithiasis Peripheral neuropathy Type II diabetes Past Surgical History: Breast reduction Excision of Adler's neuroma x 3 Hysterectomy Left bunionectomy Lithotripsy for renal stones in 9 and in 1989 Tonsillectomy Flu shot in 2018 D&C in 2011 Hysterectomy without oophorectomy in 2011 Right total hip arthroplasty in 2011 Laparoscopic cholecystectomy in 1991 Breast reduction in 1983 Cholecystectomy in 1982 Thyroidectomy in 1959 Allergies: Carfilzomib, Daratuzumab, EKG patches, Lisinopril, Pomalidomide, and revlimd. Medications: Acetaminophen Tablet Oral PRN AmLODIPine Besylate 1 Tablet (of 10 mg) Oral every am Aspirin 1 (81 mg) Tablet Oral daily Atorvastatin Calcium 1 Tablet (of 40 mg) Oral daily Clopidogrel Bisulfate 1 Tablet (of 75 mg) Oral daily Furosemide 1 Tablet (of 40 mg) Oral every am Isosorbide Mononitrate 1 Tablet (of 15 mg) Oral daily K-Tab 1 Tablet (of 20 meq) Tablet, controlled release Oral daily Levothyroxine Sodium 1 Tablet (of 125 mcg) Oral daily Metoprolol Succinate ER 1 Tablet (of 50 mg) Tablet SR 24 HR Oral b.i.d. Pantoprazole Sodium 1 Tablet (of 40 mg) Tablet, enteric coated Oral daily PreserVision AREDS 2 Tablet Oral daily Senna S 1 - 2 Tablet (of 8.6-50 mg) Oral daily Family History: Ms. Red's mother at age 83: congestive heart failure. Ms. Red's father is alive. Ms. Red has 1 brother who is alive. She has 2 sisters: 2 alive. Father is still living at age 103. Mother with congestive heart failure at age 83. She also had been treated for breast cancer, renal cell cancer, and uterine cancer. One brother and two sisters are in good health. Social History: Ms. Red is and she is retired. Ms. Red has never smoked. She has no history of drinking. She is a nonsmoker. She does not drink alcohol. Review Of Symptoms: Constitutional Denies fevers, chills, night sweats, excessive fatigue. She states she has fatigue. Allergic/Immunologic No reactions. Eyes Denies significant visual changes. No diplopia. No amaurosis. ENMT Denies changes in hearing, sore throat, mouth sores, difficulty or changes in swallowing ability, and/or sinus drainage. Hematologic/Lymphatic Denies easy bruising or bleeding. The patient denies any tender or palpable lymph nodes. Respiratory Increased dyspnea on exertion, but denies chest pain, cough or hemoptysis. Denies orthopnea. Cardiovascular Denies anginal chest pain, palpitations or orthopnea. Gastrointestinal Denies nausea, vomiting, diarrhea, GI bleeding, or constipation. Denies change in bowel habits and/or stool color, or early satiety. Genitourinary (F) No hematuria, hesitancy, incontinence, vaginal bleeding, discharge or other problems with urination. Musculoskeletal Denies joint pain, swelling or redness. No decreased range of motion. Integumentary Denies chronic rashes, inflammation, ulcerations or skin changes. Neurologic Denies headache, blurred vision, and no areas of focal weakness or numbness. No sensory problems. Psychiatric Denies insomnia, depression, marylin or mood swings. Vital Signs: Performed on Jan 29, 2020 13:08 Height - 66.00 in Weight - 151.4 lbs (LOW) BSA - 1.78 sq.m BMI - 24.44 Temperature - 99.6 F (HIGH) Pulse - 65 /min Respiration - 18 /min BP - 133/47 mm(hg) O2 Sat - 97 % Pain - 0,2 - Ambulatory/capable of all self-care, unable to perform any work activities. Up and about more than 50% of waking hours. (ECOG) Physical Examination: Constitutional Alert, oriented, no acute distress. Skin pink, warm and dry. Head Normocephalic; atraumatic. Eyes Conjunctivae and sclerae are clear and without icterus. Pupils are reactive and equal. Neck Supple without masses or thyromegaly. No jugular venous distension. Respiratory Lungs are clear to auscultation without rhonchi or wheezing. Cardiovascular Regular rate and rhythm of heart without murmurs,clicks, gallops or rubs. Abdomen Non-tender, non-distended, no masses, ascites. Back/Spine Non-tender to palpation. Extremities No visible deformities, no cyanosis, clubbing or edema. Musculoskeletal No tenderness or swelling, normal range of motion without obvious weakness. Integumentary No rashes or lesions.-see above Neurologic No sensory or motor deficits, normal cerebellar function, in wheelchair today. Psychiatric Alert and oriented times three. Coherent speech. Verbalizes understanding of our discussions today. Laboratory:Test performed on Feb 03, 2020 10:13 Sodium 131 mmol/L Potassium 3.7 mmol/L Chloride 105 mmol/L CO2 17 mmol/L Anion Gap 12.7 BUN 13 mg/dL Creatinine 1.3 mg/dL Cr Clearance (Est) 35.5500 mL/min Glucose 141 mg/dL Osmolality - Calculated 274 mOsm/kg Calcium 12.1 mg/dL Protein, Total 11.5 g/dL Albumin 2.2 g/dL Globulin 9.3 g/dL Bilirubin, Total 0.7 mg/dL ALT (SGPT) 11 U/L AST (SGOT) 34 U/L Alkaline Phosphatase 62 IU/L WBC 1.2 10 3/uL RBC 3.13 10 6/uL HGB 9.4 g/dL HCT 29.2 % MCV 93.3 fL MCH 30.0 pg MCHC 32.2 g/dL RDW 18.9 % Platelet Count 24 10 3/cmm MPV 12.9 fL Neutrophils 0.39 10 3/uL Lymphocytes 0.5 10 3/uL Monocytes 0.3 10 3/uL Eosinophils 0.0 10 3/uL Basophils 0.0 10 3/uL Neutrophil % 33.5 % Lymphocyte % 43.1 % Monocyte % 21.6 % Eosinophil % 0.9 % Basophils % 0.0 % NRBC % 0 % CBC Slide Review Slide Review Perform SLIDE REVIEW AGREES WITH AUTOMATED RESULTS/MISAEL Anti-D Negative Blood Type BN Antibody Screen (Gel) NEGATIVE Test performed on Dec 17, 2019 13:25 T3, Free 1.4 PG/ML T4, Free 2.40 ng/dL TSH 0.53 uIU/mL Test performed on Dec 05, 2019 11:38 Manual Lymphocytes 36 % Manual Monocytes 18 % Manual Eosinophils 2 % Test performed on Nov 12, 2019 08:46 Albumin, SPE 3.01 g/dL IGA 8 mg/dL IGG 6500 mg/dL IGM 10 mg/dL [place] / Lambda Ratio 186.89 Absolute Value Lambda Light Chain 1.60 [place] Light Chain 299.03 [id number] 0.24 g/dL [id number]-[id number] 0.61 g/dL Beta Globulin 0.54 g/dL Gamma Globulin 5.46 g/dL SPE Interpretation significant increase in monoclonal proteinemia since prior study Test performed on Nov 01, 2019 09:34 Ferritin 27.1 ng/mL Folate 20 ng/mL Test performed on Oct 24, 2019 09:38 % Iron Saturation 34 % Iron, Total 117 mcg/dL TIBC 346 mcg/dL Test performed on Oct 10, 2019 14:01 Manual Basophils 0 % Impression: 1. Patient with IgG kappa myeloma. Her bone marrow aspiration/biopsy on 10/27/2017 was hypercellular with 63% plasma cells. 2. She had anemia, renal dysfunction, and symptomatic hypercalcemia at initial presentation. Her skeletal survey showed diffuse bone demineralization, but without evidence of any large osteolytic lesions. Her other medical illnesses include: 3. Hypertension. 4. Type II diabetes. 5. Peripheral neuropathy. 6. Degenerative arthritis. 7. She has a history of nephrolithiasis. She had some improvement on initial treatment with sodium pamidronate and 4 days of high-dose dexamethasone. She then began treatment with Velcade/Revlimid/dexamethasone on 11/16/2017. The Revlimid was initiated at a reduced dosage of 10 mg daily on a 21/28 day schedule with the Velcade and dexamethasone administered weekly. At that time she also received an infusion of zoledronic acid. Her 1st cycle of treatment was complicated by a febrile illness and diarrhea. She also developed pancytopenia with worsening anemia, requiring PRBC transfusion. It was uncertain to what extent her problems may have been due to the treatment or to the underlying myeloma. Her Revlimid was put on hold at day 4. She was then able to continue treatment with Velcade and dexamethasone. As of 04/04/2018 she began her 6th cycle of treatment. Her repeat serum protein electrophoresis on 05/01/2018 showed 2 monoclonal bands which together quantitated at 0.21 g/dL. The serum free light chain assay showed normal kappa/lambda ratio. Her hemoglobin was stable at 11.2 g. As of her follow-up visit on 05/02/2018 she was still having some fatigue, but she otherwise appeared stable clinically. She then began maintenance Revlimid at 5 mg daily. It was put on hold as of 05/29/2018 due to worsening skin eruption. The skin eruption subsequently did resolve, though gradually. As of her follow-up visit in June 2018 she had only a very small amount of residual M protein, and she appeared stable clinically. Given the side effects she had experienced with her treatment, I opted to just follow her on observation/expectant management. During her subsequent follow-up her clinical status initially remained stable. However, as of her follow-up in March 2019 there had been a slight drop in her hemoglobin/hematocrit levels, and her protein electrophoresis studies showed a significant increase in her M protein, to 2.11 g/dL, and a significant increase in the kappa free light chain, to 105.21 mg/L, with the kappa/lambda ratio elevated at 8.65. This was obviously consistent with progression of the myeloma. On 05/14/2019 she began a trial of second line therapy with daratumumab in combination with carfilzomib and dexamethasone. Following her day 2 treatment she required hospitalization for acute respiratory distress/pulmonary edema. Her clinical course was complicated by acute renal injury and thrombocytopenia. She did have a good recovery. Following hospitalization April she did show gradual improvement in her performance status. However, by July 2019 her M protein had increased significantly, to 2.65 g/dL. Her restaging PET/CT showed no obvious involvement with myeloma. However, she was mildly anemic, and with the increasing M protein she then proceeded to 3d line treatment with pomalidomide in combination with ixazomib and dexamethasone. She tolerated the pomalidomide very poorly, and it was stopped early into the first cycle. As of her follow-up visit on 09/30/2019 the ixazomib was also put on hold. She then continued treatment with dexamethasone. During that time she had worsening pain in her left hip due to underlying degenerative disease. He became severe enough to significantly limit her activity, and at that point she was scheduled for left total hip arthroplasty. The procedure, though, and ended up being canceled due to anemia and hypercalcemia. Dr Muñoz had seen her for a follow-up visit on 11/19/2019. She was significantly anemic with hemoglobin 8.5 g. Her renal function was still adequate with creatinine 0.81 mg/dL, but her calcium was significantly elevated at 12.3 mg/dL, consistent with progression of her myeloma. She was given an infusion of sodium pamidronate for the hypercalcemia. Her further clinical course was complicated by a hospital admission for cardiac ischemia, requiring angioplasty with stent to the LAD. She then had to additional hospitalizations for pneumonia/congestive heart failure. During that time she had been transfused on 2 occasions. She was discharged home on 12/22/2019. She has very marginal performance status. She continues to have anemia and she now has moderately severe thrombocytopenia. Her renal function remains adequate, but she is showing a recurrence of hypercalcemia. She was seen on January 02, [address] Muñoz for follow-up. At that time it was recommended that she pursue treatment with melphalan and prednisone pending insurance authorization she received another dose of IV pamidronate for hypercalcemia at that time. Mrs Red was approved for the Melphalan and Prednisone and had initially requested to wait until after to start it. However her proteins from 01/14/2020 were increasing compared to prior labs. She was instructed to start the melphalan and Prednsione on 01/16/2020. It was noted that her kappa light chain on 01/14/2020 was 404.5 and on 09/12/2019 was 284. Her lambda light chain was 2.2 on 01/14/2020. Her creatinine is stable at 0.9. The SPEP abnormal band protein reported at 7.4. And it was 4.7 on 09/12/2019. She has also had persistent hypercalcemia. She had the dose of pamidronate on 01/02/2020 as noted above. She received another 4 mg of Zometa on 01/16/2020 for calcium of 13.2 from 01/14/2020. Plan: 1. She has completed 4 days of melphalan 16 mg. Her Prednisone dose was 20 mg three times daily x 4 days (along with the Melphalan). This was started on 01/16/2020. This is cycle 1. 2. Labs from 01/28/2020 were reviewed in detail discussed with Ms. Red and her daughter. A copy was given to them. WBC 2.4, hemoglobin 7.9, platelets 45,000 ANC is 1330. Potassium 3.8 calcium 11.9 creatinine 1.4. 3. We will plan to go ahead and set her up for 2 units of packed red blood cells. She may also proceed with hydration daily as needed. 4. We will plan to recheck her CBC CMP and type and cross on Monday and possible hydration at that time as well. 5. We will plan for follow-up in 2 to 3 weeks depending on how her blood counts are and how she is feeling overall. We do not want to see her prior to her next cycle of melphalan and prednisone. She will need to repeat her myeloma labs to include SPEP with SARA, free light chain assay and QUIGS. 6. Ms. Red and her daughter were instructed to contact us in interim should questions or problems arise. Signed By: Otto Sue-, AOP Kris Muñoz MD <<Signature on File>>
[2020-02-10 15:32] LABS: Eosinophils % 0.6 %; Lymphocytes # 0.7 10^3/uL (0.8-4.8); Mean Corpuscular HGB Conc 30.1 g/dL (30.0-36.0); Mean Corpuscular Hemoglobin 29.8 pg (28.0-34.0); Mean Platelet Volume 11.8 fL (7.4-10.4); Monocytes # 0.6 10^3/uL (0.2-0.9); Monocytes % 33.9 %; Neutrophils % 24.9 %; Nucleated Red Blood Cells % 0 %; Platelet Count 38 10^3/cmm (130-400); Red Blood Count 1.98 10^6/uL (4.1-5.3); Red Cell Distribution Width 18.9 % (12.1-15.1); White Blood Count 1.7 10^3/uL (4.0-10.0)
[2020-02-10 15:50] LABS: Hematocrit 19.6 % (37.0-47.0); Hemoglobin 5.9 g/dL (11.5-15.3); Neutrophils # 0.41 10^3/uL (1.8-7.7)
[2020-02-10 16:18] LABS: Alanine Aminotransferase 10 U/L (0-33); Albumin Level 2.2 g/dL (3.5-5.2); Alkaline Phosphatase 69 IU/L (35-105); Anion Gap 13.5 (5-19); Aspartate Amino Transferase 39 U/L (0-32); Blood Urea Nitrogen 25 mg/dL (8-23); Calcium 13.4 mg/dL (8.5-10.5); Carbon Dioxide 16 mmol/L (22-29); Chloride 107 mmol/L (98-107); Globulin 8.9 g/dL (1.3-4.6); Glucose 105 mg/dL (65-115); Osmolality Calculated 279 mOsm/kg (285-295); Potassium 4.5 mmol/L (3.5-5.1); Sodium 132 mmol/L (136-145); Total Protein 11.1 g/dL (6.6-8.7)
[2020-02-10 16:26] LABS: Total Bilirubin 0.4 mg/dL (0.15-1.2)
[2020-02-11] VITALS (10 sets, daily range): BP systolic 118–133; BP diastolic 41–65; PULSE 64–69; RESP 16; TEMP 36.6–37.3; O2SAT 95–97
[2020-02-11] MEDS: acetaminophen 325 mg Tablet 650 MG PO (11:00)
[2020-02-11] MEDS: sodium chloride 0.9% 250 ML 999 ML IV (11:00)
[2020-02-11] MEDS: diphenhydrAMINE 25 mg Capsule PO (11:00)
[2020-02-11 11:17] LABS: Eosinophils % 1.4 %; Hematocrit 20.9 % (37.0-47.0); Lymphocytes # 0.6 10^3/uL (0.8-4.8); Lymphocytes % 42.4 %; Mean Corpuscular HGB Conc 28.7 g/dL (30.0-36.0); Mean Corpuscular Hemoglobin 29.6 pg (28.0-34.0); Monocytes # 0.4 10^3/uL (0.2-0.9); Monocytes % 25.9 %; Neutrophils % 29.6 %; Nucleated Red Blood Cells % 0 %; Platelet Count 42 10^3/cmm (130-400); Red Blood Count 2.03 10^6/uL (4.1-5.3); Red Cell Distribution Width 19.2 % (12.1-15.1); White Blood Count 1.4 10^3/uL (4.0-10.0)
[2020-02-11 11:55] LABS: Neutrophils # 0.41 10^3/uL (1.8-7.7)
[2020-02-11] MEDS: FUROsemide 10 mg/mL SDV 2mL 20 MG IV (12:58)
[2020-02-13 08:05] LABS: Basophils % 0.5 %; Eosinophils % 0.5 %; Hematocrit 26.3 % (37.0-47.0); Hemoglobin 7.9 g/dL (11.5-15.3); Lymphocytes # 0.8 10^3/uL (0.8-4.8); Lymphocytes % 41.5 %; Mean Corpuscular Hemoglobin 29.3 pg (28.0-34.0); Mean Corpuscular Volume 97.4 fL (81-99); Mean Platelet Volume 11.3 fL (7.4-10.4); Monocytes # 0.7 10^3/uL (0.2-0.9); Monocytes % 34.7 %; Neutrophils % 22.8 %; Nucleated Red Blood Cells % 0 %; Platelet Count 54 10^3/cmm (130-400); Red Cell Distribution Width 18.3 % (12.1-15.1); White Blood Count 1.9 10^3/uL (4.0-10.0)
[2020-02-13 08:14] LABS: Neutrophils # 0.44 10^3/uL (1.8-7.7)
[2020-02-13 08:31] LABS: Alanine Aminotransferase 10 U/L (0-33); Alkaline Phosphatase 74 IU/L (35-105); Anion Gap 10.6 (5-19); Aspartate Amino Transferase 45 U/L (0-32); Blood Urea Nitrogen 23 mg/dL (8-23); Carbon Dioxide 16 mmol/L (22-29); Chloride 106 mmol/L (98-107); Globulin 9.4 g/dL (1.3-4.6); Glucose 74 mg/dL (65-115); Osmolality Calculated 268 mOsm/kg (285-295); Potassium 4.6 mmol/L (3.5-5.1); Sodium 128 mmol/L (136-145); Total Protein 11.4 g/dL (6.6-8.7)
[2020-02-13 08:38] LABS: Total Bilirubin 0.5 mg/dL (0.15-1.2)
[2020-02-13 08:46] LABS: Calcium 13.7 mg/dL (8.5-10.5)
[2020-02-13] MEDS: sodium chloride 0.9% 250 ML 999 ML IV (10:55)
[2020-02-13] MEDS: HYDROcodone-acetaminophen 10-325 mg Tablet 0.5 TAB PO (13:40)
[2020-02-13] MEDS: diphenhydrAMINE 25 mg Capsule PO (13:40)
[2020-02-13] MEDS: acetaminophen 325 mg Tablet 650 MG PO (13:40)
[2020-02-13 14:00] VITALS: BP 116/50; PULSE 63; RESP 16; TEMP 36.7; O2SAT 98
[2020-02-13 14:15] VITALS: BP 118/54; PULSE 64; RESP 16; TEMP 36.7; O2SAT 99
[2020-02-13 14:30] VITALS: BP 114/50; PULSE 62; RESP 16; TEMP 36.8; O2SAT 99
[2020-02-13 15:00] VITALS: BP 124/53; PULSE 63; RESP 16; TEMP 36.7; O2SAT 98
[2020-02-13 15:35] VITALS: BP 133/55; PULSE 65; RESP 17; TEMP 36.9; O2SAT 97
[2020-02-17] MEDS: sodium chloride 0.9% (100 ml) 100 ML 75 ML (11:45)
[2020-02-17 12:10] LABS: Basophils % 0.4 %; Eosinophils % 0.4 %; Hematocrit 26.7 % (37.0-47.0); Hemoglobin 8.2 g/dL (11.5-15.3); Lymphocytes # 0.6 10^3/uL (0.8-4.8); Lymphocytes % 23.6 %; Mean Corpuscular HGB Conc 30.7 g/dL (30.0-36.0); Mean Corpuscular Hemoglobin 30.1 pg (28.0-34.0); Mean Corpuscular Volume 98.2 fL (81-99); Mean Platelet Volume 11.1 fL (7.4-10.4); Monocytes # 0.6 10^3/uL (0.2-0.9); Monocytes % 24.8 %; Neutrophils # 1.21 10^3/uL (1.8-7.7); Nucleated Red Blood Cells % 0 %; Platelet Count 97 10^3/cmm (130-400); Red Blood Count 2.72 10^6/uL (4.1-5.3); Red Cell Distribution Width 18.9 % (12.1-15.1); White Blood Count 2.4 10^3/uL (4.0-10.0)
[2020-02-17 12:25] LABS: Alanine Aminotransferase 11 U/L (0-33); Albumin Level 2.1 g/dL (3.5-5.2); Alkaline Phosphatase 74 IU/L (35-105); Blood Urea Nitrogen 19 mg/dL (8-23); Carbon Dioxide 16 mmol/L (22-29); Chloride 111 mmol/L (98-107); Globulin 9.6 g/dL (1.3-4.6); Glucose 118 mg/dL (65-115); Osmolality Calculated 277 mOsm/kg (285-295); Sodium 132 mmol/L (136-145); Total Protein 11.7 g/dL (6.6-8.7)
[2020-02-17 12:35] LABS: Anion Gap 9.6 (5-19); Aspartate Amino Transferase 51 U/L (0-32); Calcium 13.9 mg/dL (8.5-10.5); Potassium 4.6 mmol/L (3.5-5.1)
[2020-02-17 12:39] LABS: Total Bilirubin 0.8 mg/dL (0.15-1.2)
--- NOTE | 2020-02-17 16:01 | ONC FU_ITS ---
Dr. Muñoz Patient Follow-Up Note Patient: [facility] #: [id number]: 1935 Dicatated By: Kris Muñoz M.D.Date of Visit:Feb 17, 2020 Onc Med Follow-up/Prog Note Chief Complaint: Myeloma. History of Present Illness: This is an 84 year-old woman with IgG kappa myeloma. She had presented to Dr. Nieto on 10/24/2017 with complaints of dizziness/lightheadedness, fatigue, and anorexia. She reported that at times she felt like passing out and having to lie down. She reported having problems with memory and she complained that she had been sleeping a lot. Her CBC showed low hemoglobin at 8.8 g, white blood cell count borderline at 4300 and platelet count mildly decreased at 103,000. Her comprehensive metabolic profile showed elevated BUN and creatinine at 23 and 1.42 mg/dL and significantly elevated serum calcium at 14.5 mg/dL with albumin low at 2.5 g/dL. The calculated serum globulin was significantly elevated at 7.9 g/dL. Bone marrow aspiration/biopsy on 10/27/2017 showed hypercellular marrow with 63% plasma cells, consistent with myeloma. At that time, she was given an infusion of sodium pamidronate for the hypercalcemia, and she also was given dexamethasone 40 mg daily for 4 days. Skeletal survey on 10/27/2017 showed evidence of diffuse bone demineralization but without evidence of large osteolytic lesion. Subcentimeter lucent foci in the Fem[place] bilaterally were felt to be consistent with osteoporosis, myelomatous lesions, or metastatic disease. Serum protein electrophoresis and 11/20/2017 showed IgG kappa paraprotein quantitating at 4.1 g/dL. The free light chain assay showed elevated free kappa light chain at 228.24 mg/L with elevated kappa/lambda ratio at 17.40. She returned on 11/16/2017 to begin treatment with Velcade/Revlimid/dexamethasone. I opted to use a weekly Velcade regimen on a 21/28 day schedule. Due to her age and renal function, the Revlimid was initiated at a reduced dosage of 10 mg daily for 21 days. The dexamethasone was reduced to 20 mg weekly. At that time, her calcium had become elevated again at 10.3 mg/dL with albumin 2.2 g/dL. Her renal function had improved with creatinine down to 1.0 mg/dL. As such, she was given zoledronic acid 3.5 mg by IV infusion. On 11/20/2017 she came in with a 2-day history of fever and chills. A specific source of infection was not identified other than her chest x-ray was suspicious for possible pneumonia. She was treated empirically with Levaquin, I did opt to put her Revlimid on hold, as she also was having diarrhea at that point. Her follow-up CBC on 11/23/2017 showed further decline in hemoglobin to 6.4 g, and the following day she was transfused 2 units of PRBC. She did receive her day 8 Velcade, and she was able to return for day 15 Velcade on 11/29/2017. Hemoglobin at that point was adequate at 9.9 g. She then continued her 2nd cycle on 12/13/2017 with the Revlimid omitted. The Velcade was again administered weekly for 3 weeks, and the dexamethasone was changed to 20 mg twice weekly. A repeat protein electrophoresis on 12/25/2017 showed significant improvement with the M protein quantitating at 0.73 g/dL. She then continued with cycle 3 of Velcade/dexamethasone on 01/11/2018, with cycle 4 on 02/07/2018, with cycle 5 on 03/06/2018, and with cycle 6 on 04/04/2018. Her repeat serum protein electrophoresis on 05/01/2018 showed 2 monoclonal protein bands which together quantitated at 0.21 g/dL compared to 0.31 g/dL on 03/06/2018. The serum free light chain assay showed normal kappa light chain at 1.28 mg/dL and normal lambda light chain at 1.52 mg/dL with the kappa/lambda ratio normal at 0.8421. She was seen for a follow-up visit on 05/02/2018, and she then began maintenance Revlimid at 5 mg daily. As of 05/29/2018 the Revlimid was put on hold due to worsening skin eruption. The skin eruption had initially continued to worsen somewhat after stopping the Revlimid, but it then gradually resolved. I had seen her for a follow-up visit on 07/17/2018. At that point she had only minimal residual M protein. She appeared stable clinically, and given the side effects she experienced with her treatment, I opted to just follow her on observation/expectant management. Her other medical illnesses include hypertension, type II diabetes with peripheral neuropathy, and degenerative arthritis. She is a nonsmoker. INTERIM HISTORY: As of March 2019 there was a significant increase in her M protein and in her kappa free light chain. She had become mildly anemic. It was clear at that point that her myeloma was progressing, and we opted to proceed to a trial of second line therapy with daratumumab in combination with carfilzomib and dexamethasone. She began her day 1 treatment on 05/14/2019, which she tolerated well. However, following her day 2 treatment she was admitted to the hospital with acute respiratory distress/flash pulmonary edema. Her clinical course was complicated by non-ST elevation myocardial infarction, acute renal injury, and thrombocytopenia. She did have a good recovery, and she was then followed on observation/expectant management. As of July 2019 her M protein had increased significantly, to 2.65 g/dL. At that point she had become mildly anemic, hemoglobin 10.4 g. Her renal function, though, remained normal with creatinine 0.78 mg/dL. Restaging PET/CT on 08/29/2019 was felt to be likely a negative examination with no evidence for osseous or soft tissue tumor involvement. There were findings which were felt to most likely reflect prominent arthritic changes. With the significant increase in her M protein, she started 3rd line treatment with pomalidomide in combination with ixazomib and dexamethasone, cycle 1 beginning on 09/13/2019. The pomalidomide was put on hold due to side effects, the most significant being fatigue, fever, and just not feeling good generally. As of her follow-up visit on 09/30/2019 the ixazomib was also put on hold. She then continued treatment with dexamethasone 20 mg 4 days a week. I had seen her for a follow-up visit on 10/15/2019. At that time she planning to undergo left total hip arthroplasty. The procedure had been scheduled for 10/30/2019. As such, I had stopped her steroid therapy. However, her hip surgery ended up being canceled, because of anemia and hypercalcemia. I had seen her for a follow-up visit on 11/19/2019. At that time I had discussed the possibility of continuing further treatment either with melphalan/prednisone or with belantamab [id number]. She was significantly anemic with hemoglobin 8.5 g. Renal function was still normal with creatinine 0.81 mg/dL, but calcium was significantly elevated at 12.3 mg/dL. She was given an infusion of sodium pamidronate. Her further clinical course was complicated by hospital admission for cardiac ischemia requiring angioplasty with stent placement to the LAD. She had to subsequent hospitalizations for congestive heart failure/pneumonia. She was discharged home on 12/22/2019. During that time, she was transfused on 2 different occasions. I had seen her for a follow-up visit on 01/02/2020. Given her progression following VRd/maintenance Revlimid and poor tolerance for pomalidomide, carfilzomib, and daratumumab, I had recommended a trial of therapy with melphalan/prednisone. She began cycle 1 on 01/16/2020. 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 She developed neutropenia and thrombocytopenia, neither of which was severe enough to require specific treatment. She also has had hypercalcemia which has persisted despite treatment with zoledronic acid and sodium pamidronate. She is seen now for a follow-up visit. She has been very weak generally and she has had very limited activity. ECOG score is 3. Appetite also is not good. She does not have fever or night sweats. Recently she developed some pain in her right lower gum area. She has had some gagging and trouble swallowing pills. She has had some chest congestion and cough. She is short of breath with effort. She has not been having chest pain. She currently has no GI or complaints. Bowel function has remained adequate with senna. She continues to have pain in her left hip. She has no focal neurologic symptoms. Medications: Acetaminophen Tablet Oral PRN, AmLODIPine Besylate 1 Tablet (of 10 mg) Oral every am, Aspirin 1 (81 mg) Tablet Oral daily, Atorvastatin Calcium 1 Tablet (of 40 mg) Oral daily, Clopidogrel Bisulfate 1 Tablet (of 75 mg) Oral daily, Furosemide 1 Tablet (of 40 mg) Oral every am, Isosorbide Mononitrate 1 Tablet (of 15 mg) Oral daily, K-Tab 1 Tablet (of 20 meq) Tablet, controlled release Oral daily, Levothyroxine Sodium 1 Tablet (of 125 mcg) Oral daily, Metoprolol Succinate ER 1 Tablet (of 50 mg) Tablet SR 24 HR Oral b.i.d., Pantoprazole Sodium 1 Tablet (of 40 mg) Tablet, enteric coated Oral daily, PreserVision AREDS 2 Tablet Oral daily, Senna S 1 - 2 Tablet (of 8.6-50 mg) Oral daily Allergies: Carfilzomib, Daratuzumab, EKG patches, Lisinopril, Pomalidomide, and revlimd. Review of Systems: Constitutional - She is very weak and she has very limited activity. Appetite is not good. She does not have fever or night sweats. ECOG score is 3, ENMT - No sinus congestion/drainage. She has developed pain in her right lower gum area. No sore throat. She has had some gagging and some difficulty swallowing pills, Hematologic/Lymphatic - She has easy bruising, Respiratory - She has shortness of breath with effort. She has some chest congestion/cough. No pleuritic pain or hemoptysis, Cardiovascular - No angina pain. No palpitations, Gastrointestinal - No nausea or vomiting. No heartburn or acid reflux. She has constipation, but her bowel function has been adequate with senna. No blood in the stool or black stools, Genitourinary (F) - No dysuria or hematuria. No urinary frequency. No urgency or incontinence, Musculoskeletal - She still has significant pain in the left hip, Integumentary - No skin rash, Neurologic - No headache. She has dizziness. No numbness or tingling. No other focal neurologic symptoms, Psychiatric - She has anxiety and she has difficulty sleeping. Vital Signs: Performed on Feb 17, 2020 12:54 Height - 66.00 in Temperature - 98.4 F Pulse - 64 /min Respiration - 18 /min BP - 142/51 mm(hg) (HIGH) O2 Sat - 99 % Pain - 0 Physical Examination: Constitutional - She appears very weak generally, Eyes - Sclerae nonicteric. Conjunctivae clear, ENMT - No lesions noted in the oral cavity, Hematologic/Lymphatic - No cervical, clavicular, or axillary adenopathy, Respiratory - Lungs sound clear, Cardiovascular - Heart rhythm is irregular. There is a II/ systolic murmur. There is no gallop or rub noted, Abdomen - Soft. Liver and spleen are not enlarged. There is no abdominal mass or ascites noted and there is no inguinal adenopathy, Extremities - No edema. There are purpuric lesions on both arms, Neurologic - No focal neurologic deficits noted. Lab/Imaging: Test performed on Feb 17, 2020 11:45 Sodium 132 mmol/L Potassium 4.6 mmol/L Chloride 111 mmol/L CO2 16 mmol/L Anion Gap 9.6 BUN 19 mg/dL Creatinine 1.6 mg/dL Cr Clearance (Est) 28.8800 mL/min Glucose 118 mg/dL Osmolality - Calculated 277 mOsm/kg Calcium 13.9 mg/dL Protein, Total 11.7 g/dL Albumin 2.1 g/dL Globulin 9.6 g/dL Bilirubin, Total 0.8 mg/dL ALT (SGPT) 11 U/L AST (SGOT) 51 U/L Alkaline Phosphatase 74 IU/L WBC 2.4 10 3/uL RBC 2.72 10 6/uL HGB 8.2 g/dL HCT 26.7 % MCV 98.2 fL MCH 30.1 pg MCHC 30.7 g/dL RDW 18.9 % Platelet Count 97 10 3/cmm MPV 11.1 fL Neutrophils 1.21 10 3/uL Lymphocytes 0.6 10 3/uL Monocytes 0.6 10 3/uL Eosinophils 0.0 10 3/uL Basophils 0.0 10 3/uL Neutrophil % 50.0 % Lymphocyte % 23.6 % Monocyte % 24.8 % Eosinophil % 0.4 % Basophils % 0.4 % NRBC % 0 % Impression: 1. Patient with IgG kappa myeloma. Her bone marrow aspiration/biopsy on 10/27/2017 was hypercellular with 63% plasma cells. 2. She had anemia, renal dysfunction, and symptomatic hypercalcemia at initial presentation. Her skeletal survey showed diffuse bone demineralization, but without evidence of any large osteolytic lesions. She had some improvement on initial treatment with high-dose dexamethasone and zoledronic acid. 3. She then began treatment with Velcade, Revlimid, and dexamethasone. She had a good response, though she had difficulty tolerating the Revlimid. 4. As of her follow-up visit in April 2018 her quantitative M protein was down to 0.21 g/dL, and her treatment was transitioned to maintenance Revlimid. She was not able to tolerate the Revlimid due to persistent skin eruption, and as of June 2018 she was followed on observation/expectant management.. Her other medical illnesses include: 5. Hypertension. 6. Type II diabetes. 7. Peripheral neuropathy. 8. Degenerative arthritis. 9. She has a history of nephrolithiasis. During her subsequent follow-up her clinical status initially remained stable. However, as of her follow-up in March 2019 there had been a slight drop in her hemoglobin/hematocrit levels, and her protein electrophoresis studies showed a significant increase in her M protein, to 2.11 g/dL, and a significant increase in the kappa free light chain, to 105.21 mg/L, with the kappa/lambda ratio elevated at 8.65. This was obviously consistent with progression of the myeloma. On 05/14/2019 she began a trial of second line therapy with daratumumab in combination with carfilzomib and dexamethasone. Following her day 2 treatment she required hospitalization for acute respiratory distress/pulmonary edema. Her clinical course was complicated by acute renal injury and thrombocytopenia. She did have a good recovery. Following hospitalization April 2019 she had gradual improvement in her performance status. However, by July 2019 her M protein had increased significantly, to 2.65 g/dL. Her restaging PET/CT showed no obvious involvement with myeloma. However, she was mildly anemic, and with the increasing M protein she then proceeded to 3d line treatment with pomalidomide in combination with ixazomib and dexamethasone. She tolerated the pomalidomide very poorly, and it was stopped early into the first cycle. As of her follow-up visit on 09/30/2019 the ixazomib was also put on hold. She then continued treatment with dexamethasone. During that time she had worsening pain in her left hip due to underlying degenerative disease. It became severe enough to significantly limit her activity, and at that point she was scheduled for left total hip arthroplasty. The procedure, though, and ended up being canceled due to anemia and hypercalcemia. I had seen her for a follow-up visit on 11/19/2019. She was significantly anemic with hemoglobin 8.5 g. Her renal function was still adequate with creatinine 0.81 mg/dL, but her calcium was significantly elevated at 12.3 mg/dL, consistent with progression of her myeloma. She was given an infusion of sodium pamidronate for the hypercalcemia. Her further clinical course was complicated by a hospital admission for cardiac ischemia, requiring angioplasty with stent to the LAD. She then had to additional hospitalizations for pneumonia/congestive heart failure. During that time she had been transfused on 2 occasions. She was discharged home on 12/22/2019. I had seen her for a follow-up visit on 01/02/2020. At that point she had persistent hypercalcemia and she developed moderately severe thrombocytopenia. Her renal function remained adequate. With those findings, I had recommended a trial of therapy with melphalan/prednisone. She began cycle 1 on 01/16/2020. Overall, she has tolerated it with acceptable toxicity. During follow-up she did develop neutropenia and thrombocytopenia, neither of which was severe enough to require specific treatment. 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 Her hypercalcemia has persisted despite treatment with zoledronic acid and sodium pamidronate, and she has been showing decline in renal function. There also has been further decline in her performance status. Plan: As she has had no indication of any benefit, I will not attempt any further treatment with melphalan/prednisone. Her other treatment options now are limited and her prognosis appears to be poor. I will have her restart high-dose dexamethasone, 40 mg IV daily for 4 days, depending on tolerance. I will begin arrangements to get her approved for a trial of therapy with belantamab mafodotin. I will not attempt any further bisphosphonate therapy, as I am concerned that she may be developing osteonecrosis of the mandible. She can be transfused again as needed if her anemia worsens. If her performance status and/or renal function continued to decline, it may be best to transition her to symptomatic/supportive care. Signed By: Kris Muñoz M.D. <<Signature on File>>
[2020-02-18] MEDS: sodium chloride 0.9% 500 ML IV (13:45)
[2020-02-19] MEDS: HYDROcodone-acetaminophen 5-325 mg Tablet 1 TAB PO (10:10)
[2020-02-19] MEDS: sodium chloride 0.9% 500 ML 999 ML IV (10:27)
[2020-02-19 10:55] LABS: Hematocrit 27.9 % (37.0-47.0); Hemoglobin 8.1 g/dL (11.5-15.3); Lymphocytes # 0.6 10^3/uL (0.8-4.8); Lymphocytes % 17.6 %; Mean Corpuscular Hemoglobin 30.1 pg (28.0-34.0); Mean Corpuscular Volume 103.7 fL (81-99); Mean Platelet Volume 10.8 fL (7.4-10.4); Monocytes # 0.3 10^3/uL (0.2-0.9); Monocytes % 9.5 %; Neutrophils # 2.42 10^3/uL (1.8-7.7); Nucleated Red Blood Cells % 0 %; Platelet Count 79 10^3/cmm (130-400); Red Blood Count 2.69 10^6/uL (4.1-5.3); White Blood Count 3.4 10^3/uL (4.0-10.0)
[2020-02-20] MEDS: sodium chloride 0.9% 500 ML 999 ML IV (09:40)
[2020-02-24 16:56] LABS: Basophils % 0.3 %; Eosinophils % 0.3 %; Hematocrit 25.3 % (37.0-47.0); Hemoglobin 7.7 g/dL (11.5-15.3); Lymphocytes # 0.5 10^3/uL (0.8-4.8); Lymphocytes % 13.9 %; Mean Corpuscular HGB Conc 30.4 g/dL (30.0-36.0); Mean Corpuscular Hemoglobin 29.8 pg (28.0-34.0); Mean Corpuscular Volume 98.1 fL (81-99); Mean Platelet Volume 10.7 fL (7.4-10.4); Monocytes # 0.5 10^3/uL (0.2-0.9); Monocytes % 14.2 %; Neutrophils # 2.35 10^3/uL (1.8-7.7); Neutrophils % 66.5 %; Nucleated Red Blood Cells % 0 %; Platelet Count 116 10^3/cmm (130-400); Red Blood Count 2.58 10^6/uL (4.1-5.3); Red Cell Distribution Width 18.6 % (12.1-15.1); White Blood Count 3.5 10^3/uL (4.0-10.0)
[2020-02-24 17:22] LABS: Alanine Aminotransferase 14 U/L (0-33); Albumin Level 2.1 g/dL (3.5-5.2); Alkaline Phosphatase 65 IU/L (35-105); Anion Gap 13.7 (5-19); Aspartate Amino Transferase 36 U/L (0-32); Blood Urea Nitrogen 19 mg/dL (8-23); Calcium 11.8 mg/dL (8.5-10.5); Carbon Dioxide 19 mmol/L (22-29); Chloride 104 mmol/L (98-107); Globulin 8.7 g/dL (1.3-4.6); Glucose 150 mg/dL (65-115); Osmolality Calculated 281 mOsm/kg (285-295); Potassium 3.7 mmol/L (3.5-5.1); Sodium 133 mmol/L (136-145); Total Protein 10.8 g/dL (6.6-8.7)
[2020-02-24 17:31] LABS: Total Bilirubin 0.4 mg/dL (0.15-1.2)
[2020-02-24 20:55] LABS: Immunoglobulin IGA 50 mg/dL (70-400); Immunoglobulin IGM 25 mg/dL (40-230)
[2020-02-24 21:29] LABS: Immunoglobulin IGG 6949 mg/dL (700-1600)
[2020-02-25 09:08] LABS: PROTEIN, TOTAL 11.3 g/dL (6.1-8.1)
[2020-02-25 12:12] LABS: KAPPA LIGHT CHAIN, FREE, SERUM 219.2 mg/L (3.3-19.4); LAMBDA LIGHT CHAIN, FREE, SERU <1.5 mg/L (5.7-26.3)
[2020-02-25 12:43] LABS: ABNORMAL PROTEIN BAND 1 7.4 g/dL (NONE DETECTED); ALBUMIN 2.5 g/dL (3.8-4.8); ALPHA 1 GLOBULIN 0.4 g/dL (0.2-0.3); ALPHA 2 GLOBULIN 0.7 g/dL (0.5-0.9); BETA 1 GLOBULIN 0.3 g/dL (0.4-0.6); BETA 2 GLOBULIN 0.2 g/dL (0.2-0.5); GAMMA GLOBULIN 7.4 g/dL (0.8-1.7)
[2020-02-26] VITALS (9 sets, daily range): BP systolic 127–148; BP diastolic 49–54; PULSE 64–74; RESP 18; TEMP 37.1–37.5; O2SAT 97–98
[2020-02-26] MEDS: sodium chloride 0.9% 250 ML 999 ML IV (08:35)
[2020-02-26] MEDS: diphenhydrAMINE 25 mg Capsule PO (09:00)
[2020-02-26] MEDS: acetaminophen 325 mg Tablet 650 MG PO (10:24)
[2020-02-26] MEDS: FUROsemide 10 mg/mL SDV 2mL 20 MG IV (11:00)
--- NOTE | 2020-03-01 22:37 | ONC FU_ITS ---
[facility] Patient Note Patient: Alta Red Unit #: [id number]: [id number] Dictated By: Otto SueDate of Visit: Feb 25, 2020 Onc MED Follow-Up/Prog Note Chief Complaint: Myeloma. History of Present Illness: Mrs Red is an 84 year-old woman with IgG kappa myeloma. She had presented to Dr. Nieto on 10/24/2017 with complaints of dizziness/lightheadedness, fatigue, and anorexia. She reported that at times she felt like passing out and having to lie down. She reported having problems with memory and she complained that she had been sleeping a lot. Her CBC showed low hemoglobin at 8.8 g, white blood cell count borderline at 4300 and platelet count mildly decreased at 103,000. Her comprehensive metabolic profile showed elevated BUN and creatinine at 23 and 1.42 mg/dL and significantly elevated serum calcium at 14.5 mg/dL with albumin low at 2.5 g/dL. The calculated serum globulin was significantly elevated at 7.9 g/dL. Bone marrow aspiration/biopsy on 10/27/2017 showed hypercellular marrow with 63% plasma cells, consistent with myeloma. At that time, she was given an infusion of sodium pamidronate for the hypercalcemia, and she also was given dexamethasone 40 mg daily for 4 days. Skeletal survey on 10/27/2017 showed evidence of diffuse bone demineralization but without evidence of large osteolytic lesion. Subcentimeter lucent foci in the femur bilaterally were felt to be consistent with osteoporosis, myelomatous lesions, or metastatic disease. Serum protein electrophoresis and 11/20/2017 showed IgG kappa paraprotein quantitating at 4.1 g/dL. The free light chain assay showed elevated free kappa light chain at 228.24 mg/L with elevated kappa/lambda ratio at 17.40. She returned on 11/16/2017 to begin treatment with Velcade/Revlimid/dexamethasone. It was opted to use a weekly Velcade regimen on a 21/28 day schedule. Due to her age and renal function, the Revlimid was initiated at a reduced dosage of 10 mg daily for 21 days. The dexamethasone was reduced to 20 mg weekly. At that time, her calcium had become elevated again at 10.3 mg/dL with albumin 2.2 g/dL. Her renal function had improved with creatinine down to 1.0 mg/dL. As such, she was given zoledronic acid 3.5 mg by IV infusion. On 11/20/2017 she came in with a 2-day history of fever and chills. A specific source of infection was not identified other than her chest x-ray was suspicious for possible pneumonia. She was treated empirically with Levaquin, Dr Muñoz did opt to put her Revlimid on hold, as she also was having diarrhea at that point. Her follow-up CBC on 11/23/2017 showed further decline in hemoglobin to 6.4 g, and the following day she was transfused 2 units of PRBC. She did receive her day 8 Velcade, and she was able to return for day 15 Velcade on 11/29/2017. Hemoglobin at that point was adequate at 9.9 g. She then continued her 2nd cycle on 12/13/2017 with the Revlimid omitted. The Velcade was again administered weekly for 3 weeks, and the dexamethasone was changed to 20 mg twice weekly. A repeat protein electrophoresis on 12/25/2017 showed significant improvement with the M protein quantitating at 0.73 g/dL. She then continued with cycle 3 of Velcade/dexamethasone on 01/11/2018, with cycle 4 on 02/07/2018, with cycle 5 on 03/06/2018, and with cycle 6 on 04/04/2018. Her repeat serum protein electrophoresis on 05/01/2018 showed 2 monoclonal protein bands which together quantitated at 0.21 g/dL compared to 0.31 g/dL on 03/06/2018. The serum free light chain assay showed normal kappa light chain at 1.28 mg/dL and normal lambda light chain at 1.52 mg/dL with the kappa/lambda ratio normal at 0.8421. She was seen for a follow-up visit on 05/02/2018, and she then began maintenance Revlimid at 5 mg daily. As of 05/29/2018 the Revlimid was put on hold due to worsening skin eruption. The skin eruption had initially continued to worsen somewhat after stopping the Revlimid, but it then gradually resolved. Dr Muñoz had seen her for a follow-up visit on 07/17/2018. At that point she had only minimal residual M protein. She appeared stable clinically, and given the side effects she experienced with her treatment, it was opted to just follow her on observation/expectant management. Her other medical illnesses include hypertension, type II diabetes with peripheral neuropathy, and degenerative arthritis. She is a nonsmoker. INTERIM HISTORY: As of March 2019 there was a significant increase in her M protein and in her kappa free light chain. She had become mildly anemic. It was clear at that point that her myeloma was progressing, and we opted to proceed to a trial of second line therapy with daratumumab in combination with carfilzomib and dexamethasone. She began her day 1 treatment on 05/14/2019, which she tolerated well. However, following her day 2 treatment she was admitted to the hospital with acute respiratory distress/flash pulmonary edema. Her clinical course was complicated by non-ST elevation myocardial infarction, acute renal injury, and thrombocytopenia. She did have a good recovery, and she was then followed on observation/expectant management. As of July 2019 her M protein had increased significantly, to 2.65 g/dL. At that point she had become mildly anemic, hemoglobin 10.4 g. Her renal function, though, remained normal with creatinine 0.78 mg/dL. Restaging PET/CT on 08/29/2019 was felt to be likely a negative examination with no evidence for osseous or soft tissue tumor involvement. There were findings which were felt to most likely reflect prominent arthritic changes. With the significant increase in her M protein, she started 3rd line treatment with pomalidomide in combination with ixazomib and dexamethasone, cycle 1 beginning on 09/13/2019. The pomalidomide was put on hold due to side effects, the most significant being fatigue, fever, and just not feeling good generally. As of her follow-up visit on 09/30/2019 the ixazomib was also put on hold. She then continued treatment with dexamethasone 20 mg [address] Muñoz had seen her for a follow-up visit on 10/15/2019. At that time she planning to undergo left total hip arthroplasty. The procedure had been scheduled for 10/30/2019. As such, Dr Muñoz had stopped her steroid therapy. However, her hip surgery ended up being canceled, because of anemia and hypercalcemia. Dr Muñoz had seen her for a follow-up visit on 11/19/2019. At that time he had discussed the possibility of continuing further treatment either with melphalan/prednisone or with belantamab [id number]. She was significantly anemic with hemoglobin 8.5 g. Renal function was still normal with creatinine 0.81 mg/dL, but calcium was significantly elevated at 12.3 mg/dL. She was given an infusion of sodium pamidronate. Her further clinical course was complicated by hospital admission for cardiac ischemia requiring angioplasty with stent placement to the LAD. She had to subsequent hospitalizations for congestive heart failure/pneumonia. She was discharged home on 12/22/2019. During that time, she was transfused on [address] Muñoz had seen her for a follow-up visit on 01/02/2020. Given her progression following VRd/maintenance Revlimid and poor tolerance for pomalidomide, carfilzomib, and daratumumab, she was trial of therapy with melphalan/prednisone. She began cycle 1 on 01/16/2020. 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 She developed neutropenia and thrombocytopenia, neither of which was severe enough to require specific treatment. She also has had hypercalcemia which has persisted despite treatment with zoledronic acid and sodium pamidronate. MYELOMA TREATMENT HISTORY: 1. November 16, 2017: Velcade (weekly) Revlimid 10 mg 21 out of 28 days/dexamethasone 20 mg weekly and Zometa 3.5 mg. The Reglan was placed on hold on 11/20/17 due to fever and chills possible pneumonia and persistent diarrhea. Revlimid was reattempted with cycle 7 Velcade dexamethasone. It was omitted again on 05/29/2018 due to worsening skin eruption. She had only minimal residual M protein on 07/17/2018. Is at that time opted to just follow her on observation expectant management. 2. April 2019: daratumumab, carfilzomib and dexamethasone. She was admitted on day 2 of cycle 1 with ARDS/flash pulmonary edema, non-ST elevation NM, acute renal injury, and thrombocytopenia. 3. September 13, 2019; Pomalidomide, ixazomib and dexamethasone. The pomalidomide was placed on hold due to fatigue, fever and just not feeling good generally . On 09/30/2019 the ixazomib was also placed on hold due to performance status and she continue with dexamethasone 20 mg 4 days a week. The steroids were stopped in anticipation of a left total hip arthroplasty scheduled for 10/30/2019. However her hip surgery and that being canceled because of anemia and hypercalcemia. 4. November 19, 2019 Aredia for hypercalcemia. 5. January 16, 2020 melphalan prednisone. She completed 1 cycle and then was found to have transfusion dependent anemia, neutropenia and thrombocytopenia. She had persistent hypercalcemia and had repeat Zometa and Aredia. She had hospitalization for cardiac ischemia with angioplasty to the LAD. She had recurrent admissions for CHF and pneumonia. PRESENT: Ms. Red is here today for follow-up. She is accompanied by her daughter. They are here today to have follow-up and also to discuss further treatment options with belantamab [id number]. Her abnormal protein per protein electrophoresis is reported as 7.4 on 02/24/2020. It is stable from the 01/14/2020 20 which was also reported at 7.4. Ms. Red reports that she is doing much better overall. Her calcium has improved to 11.8. On the 02/24/2020 labs. She denies any new pain. She states she is still tired but feels pretty good overall. She states her appetite count of comes and goes. She denies any fever or chills. She denies mouth sores, sore throat or difficulty swallowing. She remains limited in her activity due to hip pain and overall fatigue. She states she feels that she is getting a little stronger every day though. Her hip however is not improving. She denies any lower extremity edema. She denies any chest pain or palpitations. She denies shortness of breath orthopnea. She denies any nausea or vomiting. She has had no residual neuropathy. Her ECOG is 3. Past Medical History: Degenerative arthritis Hypertension Hypothyroidism Nephrolithiasis Peripheral neuropathy Type II diabetes Past Surgical History: Breast reduction Excision of Adler's neuroma x 3 Hysterectomy Left bunionectomy Lithotripsy for renal stones in 1959 and in 1989 Tonsillectomy Flu shot in 2018 D&C in 2011 Hysterectomy without oophorectomy in 2011 Right total hip arthroplasty in 2011 Laparoscopic cholecystectomy in 1991 Breast reduction in 1983 Cholecystectomy in 1982 Thyroidectomy in 1959 Allergies: Carfilzomib, Daratuzumab, EKG patches, Lisinopril, Pomalidomide, and revlimd. Medications: Acetaminophen Tablet Oral PRN AmLODIPine Besylate 1 Tablet (of 10 mg) Oral every am Aspirin 1 (81 mg) Tablet Oral daily Atorvastatin Calcium 1 Tablet (of 40 mg) Oral daily Clopidogrel Bisulfate 1 Tablet (of 75 mg) Oral daily Furosemide 1 Tablet (of 40 mg) Oral every am Isosorbide Mononitrate 1 Tablet (of 15 mg) Oral daily K-Tab 1 Tablet (of 20 meq) Tablet, controlled release Oral daily Levothyroxine Sodium 1 Tablet (of 125 mcg) Oral daily Metoprolol Succinate ER 1 Tablet (of 50 mg) Tablet SR 24 HR Oral b.i.d. Pantoprazole Sodium 1 Tablet (of 40 mg) Tablet, enteric coated Oral daily PreserVision AREDS 2 Tablet Oral daily Senna S 1 - 2 Tablet (of 8.6-50 mg) Oral daily Family History: Ms. Red's mother at age 83: congestive heart failure. Ms. Red's father is alive. Ms. Red has 1 brother who is alive. She has 2 sisters: 2 alive. Father is still living at age 103. Mother with congestive heart failure at age 83. She also had been treated for breast cancer, renal cell cancer, and uterine cancer. One brother and two sisters are in good health. Social History: Ms. Red is and she is retired. Ms. Red has never smoked. She is a nonsmoker. She does not drink alcohol. Review Of Symptoms: Constitutional Denies fevers, chills, night sweats, excessive fatigue. She states she has alot of fatigue. Sleeping alot, but I am getting some stronger every day . Allergic/Immunologic No reactions. Eyes Denies significant visual changes. No diplopia. No amaurosis. ENMT Denies changes in hearing, sore throat, mouth sores, difficulty or changes in swallowing ability, and/or sinus drainage. Hematologic/Lymphatic Denies easy bruising or bleeding. The patient denies any tender or palpable lymph nodes. Respiratory Persistent on exertion, but denies chest pain, cough or hemoptysis. Denies orthopnea. Cardiovascular Denies anginal chest pain, palpitations or orthopnea. Gastrointestinal Denies nausea, vomiting, diarrhea, GI bleeding, or constipation. Denies change in bowel habits and/or stool color, or early satiety. Genitourinary (F) No hematuria, hesitancy, incontinence, vaginal bleeding, discharge or other problems with urination. Musculoskeletal Denies joint pain, swelling or redness. No decreased range of motion. Integumentary Denies chronic rashes, inflammation, ulcerations or skin changes. Neurologic Denies headache, blurred vision, and no areas of focal weakness or numbness. Psychiatric Denies insomnia, depression, marylin or mood swings. Vital Signs: Performed on Feb 25, 2020 14:04 Height - 66.00 in Weight - 151.8 lbs (HIGH) BSA - 1.78 sq.m BMI - 24.50 Temperature - 98.0 F (LOW) Pulse - 69 /min Respiration - 18 /min BP - 140/50 mm(hg) O2 Sat - 98 % Pain - 0,3 - Capable of only limited self-care, confined to bed or chair more than 50% of waking hours. (ECOG) Physical Examination: Constitutional Alert, oriented, no acute distress. Skin pink, warm and dry. No acute distress but obviously does not feel well. Head Normocephalic; atraumatic. Eyes Conjunctivae and sclerae are clear and without icterus. Pupils are reactive and equal. ENMT Sinuses are nontender. No oral exudates, ulcers, masses, thrush or mucositis. Oropharynx clear. Tongue normal. Respiratory Lungs are clear to auscultation without rhonchi or wheezing. Cardiovascular Regular rate and rhythm of heart without murmurs,clicks, gallops or rubs. Abdomen Non-tender, non-distended, no masses, ascites. Back/Spine Non-tender to palpation. Extremities No visible deformities, no cyanosis, clubbing or edema. Musculoskeletal No tenderness or swelling, normal range of motion without obvious weakness. Integumentary No rashes or lesions.-see above Neurologic No sensory or motor deficits, normal cerebellar function, in wheelchair today. Psychiatric Alert and oriented times three. Coherent speech. Verbalizes understanding of our discussions today. Laboratory:Test performed on Feb 17, 2020 11:45 Sodium 132 mmol/L Potassium 4.6 mmol/L Chloride 111 mmol/L CO2 16 mmol/L Anion Gap 9.6 BUN 19 mg/dL Creatinine 1.6 mg/dL Cr Clearance (Est) 28.8800 mL/min Glucose 118 mg/dL Osmolality - Calculated 277 mOsm/kg Calcium 13.9 mg/dL Protein, Total 11.7 g/dL Albumin 2.1 g/dL Globulin 9.6 g/dL Bilirubin, Total 0.8 mg/dL ALT (SGPT) 11 U/L AST (SGOT) 51 U/L Alkaline Phosphatase 74 IU/L WBC 2.4 10 3/uL RBC 2.72 10 6/uL HGB 8.2 g/dL HCT 26.7 % MCV 98.2 fL MCH 30.1 pg MCHC 30.7 g/dL RDW 18.9 % Platelet Count 97 10 3/cmm MPV 11.1 fL Neutrophils 1.21 10 3/uL Lymphocytes 0.6 10 3/uL Monocytes 0.6 10 3/uL Eosinophils 0.0 10 3/uL Basophils 0.0 10 3/uL Neutrophil % 50.0 % Lymphocyte % 23.6 % Monocyte % 24.8 % Eosinophil % 0.4 % Basophils % 0.4 % NRBC % 0 % Test performed on Feb 13, 2020 07:13 Anti-D Negative Blood Type BN Antibody Screen (Gel) NEGATIVE Test performed on Feb 03, 2020 10:13 CBC Slide Review Slide Review Perform SLIDE REVIEW AGREES WITH AUTOMATED RESULTS/MISAEL Test performed on Dec 17, 2019 13:25 T3, Free 1.4 PG/ML T4, Free 2.40 ng/dL TSH 0.53 uIU/mL Test performed on Dec 05, 2019 11:38 Manual Lymphocytes 36 % Manual Monocytes 18 % Manual Eosinophils 2 % Test performed on Nov 12, 2019 08:46 Albumin, SPE 3.01 g/dL IGA 8 mg/dL IGG 6500 mg/dL IGM 10 mg/dL Sutton / Lambda Ratio 186.89 Absolute Value Lambda Light Chain 1.60 Sutton Light Chain 299.03 Cjpal-3-dsrehrbt 0.24 g/dL Uebnu-5-tzkbkfla 0.61 g/dL Beta Globulin 0.54 g/dL Gamma Globulin 5.46 g/dL SPE Interpretation significant increase in monoclonal proteinemia since prior study Test performed on Nov 01, 2019 09:34 Ferritin 27.1 ng/mL Folate 20 ng/mL Test performed on Oct 24, 2019 09:38 % Iron Saturation 34 % Iron, Total 117 mcg/dL TIBC 346 mcg/dL Test performed on Oct 10, 2019 14:01 Manual Basophils 0 % Impression: 1. Patient with IgG kappa myeloma. Her bone marrow aspiration/biopsy on 10/27/2017 was hypercellular with 63% plasma cells. 2. She had anemia, renal dysfunction, and symptomatic hypercalcemia at initial presentation. Her skeletal survey showed diffuse bone demineralization, but without evidence of any large osteolytic lesions. She had some improvement on initial treatment with high-dose dexamethasone and zoledronic acid. 3. She then began treatment with Velcade, Revlimid, and dexamethasone. She had a good response, though she had difficulty tolerating the Revlimid. 4. As of her follow-up visit in April 2018 her quantitative M protein was down to 0.21 g/dL, and her treatment was transitioned to maintenance Revlimid. She was not able to tolerate the Revlimid due to persistent skin eruption, and as of June 2018 she was followed on observation/expectant management.. Her other medical illnesses include: 5. Hypertension. 6. Type II diabetes. 7. Peripheral neuropathy. 8. Degenerative arthritis. 9. She has a history of nephrolithiasis. During her subsequent follow-up her clinical status initially remained stable. However, as of her follow-up in March 2019 there had been a slight drop in her hemoglobin/hematocrit levels, and her protein electrophoresis studies showed a significant increase in her M protein, to 2.11 g/dL, and a significant increase in the kappa free light chain, to 105.21 mg/L, with the kappa/lambda ratio elevated at 8.65. This was obviously consistent with progression of the myeloma. On 05/14/2019 she began a trial of second line therapy with daratumumab in combination with carfilzomib and dexamethasone. Following her day 2 treatment she required hospitalization for acute respiratory distress/pulmonary edema. Her clinical course was complicated by acute renal injury and thrombocytopenia. She did have a good recovery. Following hospitalization April 2019 she had gradual improvement in her performance status. However, by July 2019 her M protein had increased significantly, to 2.65 g/dL. Her restaging PET/CT showed no obvious involvement with myeloma. However, she was mildly anemic, and with the increasing M protein she then proceeded to 3d line treatment with pomalidomide in combination with ixazomib and dexamethasone. She tolerated the pomalidomide very poorly, and it was stopped early into the first cycle. As of her follow-up visit on 09/30/2019 the ixazomib was also put on hold. She then continued treatment with dexamethasone. During that time she had worsening pain in her left hip due to underlying degenerative disease. It became severe enough to significantly limit her activity, and at that point she was scheduled for left total hip arthroplasty. The procedure, though, and ended up being canceled due to anemia and hypercalcemia. Dr Muñoz had seen her for a follow-up visit on 11/19/2019. She was significantly anemic with hemoglobin 8.5 g. Her renal function was still adequate with creatinine 0.81 mg/dL, but her calcium was significantly elevated at 12.3 mg/dL, consistent with progression of her myeloma. She was given an infusion of sodium pamidronate for the hypercalcemia. Her further clinical course was complicated by a hospital admission for cardiac ischemia, requiring angioplasty with stent to the LAD. She then had to additional hospitalizations for pneumonia/congestive heart failure. During that time she had been transfused on 2 occasions. She was discharged home on 12/22/2019. Dr Muñoz had seen her for a follow-up visit on 01/02/2020. At that point she had persistent hypercalcemia and she developed moderately severe thrombocytopenia. Her renal function remained adequate. With those findings, she was offered a trial of therapy with melphalan/prednisone. She began cycle 1 on 01/16/2020. Overall, she has tolerated it with acceptable toxicity. During follow-up she did develop neutropenia and thrombocytopenia, neither of which was severe enough to require specific treatment. 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 Her hypercalcemia has persisted despite treatment with zoledronic acid and sodium pamidronate, and she has been showing decline in renal function. There also has been further decline in her performance status. Her protein levels did not decrease and given the side effects and recovery time, she was not offered any further treatment with melphalan/prednisone. She was given high-dose dexamethasone 40 mg IV daily for 4 days. She did show some increase in performance status and her labs did hold well for this. 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 She has had transfusion services as warranted for her anemia. She has been offered further treatment with belantamab mafodotin. She has expressed interest in pursuing this. Plan: 1. We will pursue scheduling her for the belantamab mafodtin. 2. She will require pretreatment exam exam before each dose of belantamab. 3. Labs from 02/16/2020 were reviewed in detail and discussed with Ms. Red and a copy was given to her. WBC 3.5, hemoglobin 7.7, platelets 116,000 ANC is 2350. Potassium 3.7, random glucose 150 creatinine 1.1 calcium 11.8 LFTs are normal. 4. Should be set up for transfusion services for 2 units of packed red blood cells due to the hemoglobin of 7.7 and she is symptomatic with fatigue and shortness of breath. 5. She will return for follow-up prior to starting the belantamab mafodtin. Depending on the interval, she may need repeat labs including myeloma labs if it is more than 1 week. 6. She was given written information on the treatment plan and we discussed side effects at length and copies of those that information was given to her as well. 7. Mrs. Red was instructed to contact us in interim should questions or problems arise. 8. Refill hydrocodone 06/29/[address] Muñoz's written prescription for chronic hip pain. Signed By: Otto Sue-, [facility] Kris Muñoz MD <<Signature on File>>
== END 2020-02-27 23:59 | disposition home or self-care (01) ==
LOC: ONCMED 07:44
PROVIDERS: Internal Medicine Medical Oncology; PCP Family Medicine; Visit Provider Nurse Practitioner
DX: C90.00 Multiple myeloma not having achieved remission (principal); D63.0 Anemia in neoplastic disease; R53.83 Other fatigue; E83.52 Hypercalcemia; R06.02 Shortness of breath; I10 Essential (primary) hypertension; E11.42 Type 2 diabetes mellitus with diabetic polyneuropathy; M19.90 Unspecified osteoarthritis, unspecified site; I25.9 Chronic ischemic heart disease, unspecified; Z95.5 Presence of coronary angioplasty implant and graft; Z79.899 Other long term (current) drug therapy; Z87.442 Personal history of urinary calculi; Z79.891 Long term (current) use of opiate analgesic
CPT/HCPCS: 36415; 36430; 80048; 80053; 82784; 83883; 84155; 84165; 85025; 86850; 86900; 86920; 96361; 96365; 96366; 99214; J1100; J1940; J2430; J3489; J7040; J7050; P9016; P9040; P9058

== ENCOUNTER 2020-03-17 10:55 | Outpatient (RCR) | payer MEDICARE, SELFPAY ==
[2020-03-02] MEDS: sodium chloride 0.9% 500 ML 999 ML IV (14:32)
[2020-03-03 14:02] LABS: Hematocrit 22.2 % (37.0-47.0); Hemoglobin 6.8 g/dL (11.5-15.3); Lymphocytes # 0.5 10^3/uL (0.8-4.8); Lymphocytes % 8.4 %; Mean Corpuscular HGB Conc 30.6 g/dL (30.0-36.0); Mean Corpuscular Hemoglobin 29.6 pg (28.0-34.0); Mean Corpuscular Volume 96.5 fL (81-99); Mean Platelet Volume 10.6 fL (7.4-10.4); Monocytes # 0.4 10^3/uL (0.2-0.9); Monocytes % 7.7 %; Neutrophils # 4.52 10^3/uL (1.8-7.7); Neutrophils % 82.6 %; Nucleated Red Blood Cells % 0 %; Platelet Count 73 10^3/cmm (130-400); Red Cell Distribution Width 18.4 % (12.1-15.1); White Blood Count 5.5 10^3/uL (4.0-10.0)
[2020-03-03] MEDS: sodium chloride 0.9% 500 ML 999 ML IV (14:15)
[2020-03-03 14:44] LABS: Blood Urea Nitrogen 23 mg/dL (8-23); Calcium 12.7 mg/dL (8.5-10.5); Carbon Dioxide 20 mmol/L (22-29); Glucose 214 mg/dL (65-115); Osmolality Calculated 280 mOsm/kg (285-295); Sodium 130 mmol/L (136-145)
[2020-03-03 14:48] LABS: Chloride 4 mmol/L (98-107)
[2020-03-04] VITALS (10 sets, daily range): BP systolic 132–142; BP diastolic 48–59; PULSE 61–68; RESP 18; TEMP 36.2–37.3; O2SAT 98–100
[2020-03-04] MEDS: acetaminophen 325 mg Tablet 650 MG PO (10:50)
[2020-03-04] MEDS: sodium chloride 0.9% 250 ML 999 ML IV (10:50)
[2020-03-04] MEDS: diphenhydrAMINE 25 mg Capsule PO (11:00)
[2020-03-04] MEDS: FUROsemide 10 mg/mL SDV 2mL 20 MG IV (13:30)
[2020-03-05] MEDS: sodium chloride 0.9% 500 ML 999 ML IV (13:00)
[2020-03-09 17:27] LABS: Basophils % 0.2 %; Eosinophils # 0.1 10^3/uL (0.0-0.8); Eosinophils % 1.1 %; Hematocrit 28.8 % (37.0-47.0); Hemoglobin 8.9 g/dL (11.5-15.3); Lymphocytes # 0.4 10^3/uL (0.8-4.8); Lymphocytes % 8.2 %; Mean Corpuscular HGB Conc 30.9 g/dL (30.0-36.0); Mean Corpuscular Hemoglobin 30.2 pg (28.0-34.0); Mean Corpuscular Volume 97.6 fL (81-99); Mean Platelet Volume 11.2 fL (7.4-10.4); Monocytes # 0.6 10^3/uL (0.2-0.9); Monocytes % 10.5 %; Neutrophils # 3.98 10^3/uL (1.8-7.7); Neutrophils % 75.6 %; Nucleated Red Blood Cells # 0.1 /100WBC; Platelet Count 107 10^3/cmm (130-400); Red Blood Count 2.95 10^6/uL (4.1-5.3); Red Cell Distribution Width 17.7 % (12.1-15.1); White Blood Count 5.3 10^3/uL (4.0-10.0)
[2020-03-09 17:33] LABS: Anion Gap 10.9 (5-19); Blood Urea Nitrogen 24 mg/dL (8-23); Calcium 11.1 mg/dL (8.5-10.5); Carbon Dioxide 19 mmol/L (22-29); Chloride 105 mmol/L (98-107); Glucose 157 mg/dL (65-115); Osmolality Calculated 279 mOsm/kg (285-295); Potassium 3.9 mmol/L (3.5-5.1); Sodium 131 mmol/L (136-145)
[2020-03-17 13:31] LABS: Basophils % 0.3 %; Eosinophils # 0.1 10^3/uL (0.0-0.8); Eosinophils % 1.8 %; Hematocrit 24.3 % (37.0-47.0); Hemoglobin 7.5 g/dL (11.5-15.3); Lymphocytes # 0.7 10^3/uL (0.8-4.8); Lymphocytes % 19.2 %; Mean Corpuscular HGB Conc 30.9 g/dL (30.0-36.0); Mean Corpuscular Hemoglobin 30.6 pg (28.0-34.0); Mean Corpuscular Volume 99.2 fL (81-99); Mean Platelet Volume 9.9 fL (7.4-10.4); Monocytes # 0.9 10^3/uL (0.2-0.9); Monocytes % 26.3 %; Neutrophils # 1.69 10^3/uL (1.8-7.7); Nucleated Red Blood Cells % 0 %; Platelet Count 81 10^3/cmm (130-400); Red Blood Count 2.45 10^6/uL (4.1-5.3); Red Cell Distribution Width 19.6 % (12.1-15.1); White Blood Count 3.4 10^3/uL (4.0-10.0)
== END 2020-03-23 09:00 | disposition home or self-care (01) ==
LOC: ONCMED 10:55
PROVIDERS: Nurse Practitioner; PCP Family Medicine; Visit Provider Internal Medicine Medical Oncology
DX: C90.00 Multiple myeloma not having achieved remission (principal); D64.9 Anemia, unspecified; E83.52 Hypercalcemia; Z51.81 Encounter for therapeutic drug level monitoring; Z79.899 Other long term (current) drug therapy
CPT/HCPCS: 36430; 80048; 85025; 86850; 86900; 86920; 96360; 96361; 96365; J1100; J1940; J7040; J7050; P9016

== ENCOUNTER → 2020-03-23 09:52 | Day surgery (SDC) | payer MEDICARE, SELFPAY ==
--- NOTE | 2020-03-23 11:25 | XR_ITS ---
WS: [id number] Exam: XR chest 1V portable [id number] Date/Time of Exam: 03/23/2020 11:30 AM Reason For Exam: PICC PLACEMENT Comparison 01/22/2020. A left sided PICC line has been placed and appears to end at the cavoatrial junction in satisfactory position. The heart is enlarged. Pulmonary vascularity is increased. No pleural effusions or pneumoth orax. No infiltrates. XR/XR chest 1V portable [id number] IMPRESSION: 1. Left-sided PICC line in satisfactory position. 2. Cardiac enlargement with pulmonary vascular congestion suggesting mild CHF.
[2020-03-23 11:30] VITALS: PULSE 74; RESP 16; TEMP 37.2; O2SAT 96
== END ==
PROVIDERS: PCP Family Medicine; Visit Provider Surgery
DX: C90.00 Multiple myeloma not having achieved remission (principal); D64.9 Anemia, unspecified; E83.52 Hypercalcemia
CPT/HCPCS: 36569; 71045

== ENCOUNTER 2020-03-27 05:32 | Outpatient (RCR) | payer MEDICARE, SELFPAY ==
[2020-03-24 14:57] LABS: Basophils % 0.3 %; Eosinophils % 1.3 %; Lymphocytes # 1.2 10^3/uL (0.8-4.8); Lymphocytes % 38.2 %; Mean Corpuscular HGB Conc 29.5 g/dL (30.0-36.0); Mean Corpuscular Hemoglobin 31.6 pg (28.0-34.0); Mean Platelet Volume 11.8 fL (7.4-10.4); Monocytes # 0.7 10^3/uL (0.2-0.9); Monocytes % 21.4 %; Neutrophils # 1.14 10^3/uL (1.8-7.7); Neutrophils % 37.5 %; Nucleated Red Blood Cells % 0 %; Platelet Count 51 10^3/cmm (130-400); Red Blood Count 1.87 10^6/uL (4.1-5.3); Red Cell Distribution Width 21.4 % (12.1-15.1)
[2020-03-24 15:15] LABS: Alanine Aminotransferase 19 U/L (0-33); Albumin Level 2.2 g/dL (3.5-5.2); Alkaline Phosphatase 91 IU/L (35-105); Anion Gap 12.2 (5-19); Aspartate Amino Transferase 31 U/L (0-32); Blood Urea Nitrogen 19 mg/dL (8-23); Calcium 12.3 mg/dL (8.5-10.5); Carbon Dioxide 17 mmol/L (22-29); Chloride 107 mmol/L (98-107); Globulin 9.6 g/dL (1.3-4.6); Glucose 128 mg/dL (65-115); Osmolality Calculated 278 mOsm/kg (285-295); Potassium 4.2 mmol/L (3.5-5.1); Sodium 132 mmol/L (136-145); Total Protein 11.8 g/dL (6.6-8.7)
[2020-03-24 15:27] LABS: Hemoglobin 5.9 g/dL (11.5-15.3)
[2020-03-24 15:42] LABS: Total Bilirubin 0.6 mg/dL (0.15-1.2)
[2020-03-25] VITALS (9 sets, daily range): BP systolic 121–138; BP diastolic 63–74; PULSE 70–74; RESP 18; TEMP 36.4–37.6; O2SAT 18–99
[2020-03-25] MEDS: sodium chloride 0.9% 250 ML 999 ML IV (10:15)
[2020-03-25] MEDS: acetaminophen 325 mg Tablet 650 MG PO (10:15)
[2020-03-25] MEDS: diphenhydrAMINE 25 mg Capsule PO (10:15)
[2020-03-25] MEDS: FUROsemide 10 mg/mL SDV 2mL 20 MG IV (12:25)
[2020-03-25] MEDS: sodium chloride 0.9% 500 ML 999 ML IV (12:50)
[2020-03-26] MEDS: sodium chloride 0.9% 250 ML 999 ML IV (11:20)
[2020-03-26] MEDS: sodium chloride 0.9% 500 ML 999 ML IV (11:25)
[2020-03-27] MEDS: sodium chloride 0.9% 500 ML 999 ML IV (09:00)
--- NOTE | 2020-03-31 14:46 | ONC FU_ITS ---
[facility] Patient Note Patient: Alta Red Unit #: [id number]: [id number] Dictated By: Otto SueDate of Visit: Mar 25, 2020 Onc MED Follow-Up/Prog Note Chief Complaint: Myeloma. History of Present Illness: Mrs Red is an 84 year-old woman with IgG kappa myeloma. She had presented to Dr. Nieto on 10/24/2017 with complaints of dizziness/lightheadedness, fatigue, and anorexia. She reported that at times she felt like passing out and having to lie down. She reported having problems with memory and she complained that she had been sleeping a lot. Her CBC showed low hemoglobin at 8.8 g, white blood cell count borderline at 4300 and platelet count mildly decreased at 103,000. Her comprehensive metabolic profile showed elevated BUN and creatinine at 23 and 1.42 mg/dL and significantly elevated serum calcium at 14.5 mg/dL with albumin low at 2.5 g/dL. The calculated serum globulin was significantly elevated at 7.9 g/dL. Bone marrow aspiration/biopsy on 10/27/2017 showed hypercellular marrow with 63% plasma cells, consistent with myeloma. At that time, she was given an infusion of sodium pamidronate for the hypercalcemia, and she also was given dexamethasone 40 mg daily for 4 days. Skeletal survey on 10/27/2017 showed evidence of diffuse bone demineralization but without evidence of large osteolytic lesion. Subcentimeter lucent foci in the femur bilaterally were felt to be consistent with osteoporosis, myelomatous lesions, or metastatic disease. Serum protein electrophoresis and 11/20/2017 showed IgG kappa paraprotein quantitating at 4.1 g/dL. The free light chain assay showed elevated free kappa light chain at 228.24 mg/L with elevated kappa/lambda ratio at 17.40. She returned on 11/16/2017 to begin treatment with Velcade/Revlimid/dexamethasone. It was opted to use a weekly Velcade regimen on a 21/28 day schedule. Due to her age and renal function, the Revlimid was initiated at a reduced dosage of 10 mg daily for 21 days. The dexamethasone was reduced to 20 mg weekly. At that time, her calcium had become elevated again at 10.3 mg/dL with albumin 2.2 g/dL. Her renal function had improved with creatinine down to 1.0 mg/dL. As such, she was given zoledronic acid 3.5 mg by IV infusion. On 11/20/2017 she came in with a 2-day history of fever and chills. A specific source of infection was not identified other than her chest x-ray was suspicious for possible pneumonia. She was treated empirically with Levaquin, Dr Muñoz did opt to put her Revlimid on hold, as she also was having diarrhea at that point. Her follow-up CBC on 11/23/2017 showed further decline in hemoglobin to 6.4 g, and the following day she was transfused 2 units of PRBC. She did receive her day 8 Velcade, and she was able to return for day 15 Velcade on 11/29/2017. Hemoglobin at that point was adequate at 9.9 g. She then continued her 2nd cycle on 12/13/2017 with the Revlimid omitted. The Velcade was again administered weekly for 3 weeks, and the dexamethasone was changed to 20 mg twice weekly. A repeat protein electrophoresis on 12/25/2017 showed significant improvement with the M protein quantitating at 0.73 g/dL. She then continued with cycle 3 of Velcade/dexamethasone on 01/11/2018, with cycle 4 on 02/07/2018, with cycle 5 on 03/06/2018, and with cycle 6 on 04/04/2018. Her repeat serum protein electrophoresis on 05/01/2018 showed 2 monoclonal protein bands which together quantitated at 0.21 g/dL compared to 0.31 g/dL on 03/06/2018. The serum free light chain assay showed normal kappa light chain at 1.28 mg/dL and normal lambda light chain at 1.52 mg/dL with the kappa/lambda ratio normal at 0.8421. She was seen for a follow-up visit on 05/02/2018, and she then began maintenance Revlimid at 5 mg daily. As of 05/29/2018 the Revlimid was put on hold due to worsening skin eruption. The skin eruption had initially continued to worsen somewhat after stopping the Revlimid, but it then gradually resolved. Dr Muñoz had seen her for a follow-up visit on 07/17/2018. At that point she had only minimal residual M protein. She appeared stable clinically, and given the side effects she experienced with her treatment, it was opted to just follow her on observation/expectant management. Her other medical illnesses include hypertension, type II diabetes with peripheral neuropathy, and degenerative arthritis. She is a nonsmoker. INTERIM HISTORY: As of March 2019 there was a significant increase in her M protein and in her kappa free light chain. She had become mildly anemic. It was clear at that point that her myeloma was progressing, and we opted to proceed to a trial of second line therapy with daratumumab in combination with carfilzomib and dexamethasone. She began her day 1 treatment on 05/14/2019, which she tolerated well. However, following her day 2 treatment she was admitted to the hospital with acute respiratory distress/flash pulmonary edema. Her clinical course was complicated by non-ST elevation myocardial infarction, acute renal injury, and thrombocytopenia. She did have a good recovery, and she was then followed on observation/expectant management. As of July 2019 her M protein had increased significantly, to 2.65 g/dL. At that point she had become mildly anemic, hemoglobin 10.4 g. Her renal function, though, remained normal with creatinine 0.78 mg/dL. Restaging PET/CT on 08/29/2019 was felt to be likely a negative examination with no evidence for osseous or soft tissue tumor involvement. There were findings which were felt to most likely reflect prominent arthritic changes. With the significant increase in her M protein, she started 3rd line treatment with pomalidomide in combination with ixazomib and dexamethasone, cycle 1 beginning on 09/13/2019. The pomalidomide was put on hold due to side effects, the most significant being fatigue, fever, and just not feeling good generally. As of her follow-up visit on 09/30/2019 the ixazomib was also put on hold. She then continued treatment with dexamethasone 20 mg [address] Muñoz had seen her for a follow-up visit on 10/15/2019. At that time she planning to undergo left total hip arthroplasty. The procedure had been scheduled for 10/30/2019. As such, Dr Muñoz had stopped her steroid therapy. However, her hip surgery ended up being canceled, because of anemia and hypercalcemia. Dr Muñoz had seen her for a follow-up visit on 11/19/2019. At that time he had discussed the possibility of continuing further treatment either with melphalan/prednisone or with belantamab [id number]. She was significantly anemic with hemoglobin 8.5 g. Renal function was still normal with creatinine 0.81 mg/dL, but calcium was significantly elevated at 12.3 mg/dL. She was given an infusion of sodium pamidronate. Her further clinical course was complicated by hospital admission for cardiac ischemia requiring angioplasty with stent placement to the LAD. She had to subsequent hospitalizations for congestive heart failure/pneumonia. She was discharged home on 12/22/2019. During that time, she was transfused on [address] Muñoz had seen her for a follow-up visit on 01/02/2020. Given her progression following VRd/maintenance Revlimid and poor tolerance for pomalidomide, carfilzomib, and daratumumab, she was trial of therapy with melphalan/prednisone. She began cycle 1 on 01/16/2020. 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 She developed neutropenia and thrombocytopenia, neither of which was severe enough to require specific treatment. She also has had hypercalcemia which has persisted despite treatment with zoledronic acid and sodium pamidronate. MYELOMA TREATMENT HISTORY: 1. November 16, 2017: Velcade (weekly) Revlimid 10 mg 21 out of 28 days/dexamethasone 20 mg weekly and Zometa 3.5 mg. The Reglan was placed on hold on 11/20/17 due to fever and chills possible pneumonia and persistent diarrhea. Revlimid was reattempted with cycle 7 Velcade dexamethasone. It was omitted again on 05/29/2018 due to worsening skin eruption. She had only minimal residual M protein on 07/17/2018. Is at that time opted to just follow her on observation expectant management. 2. April 2019: daratumumab, carfilzomib and dexamethasone. She was admitted on day 2 of cycle 1 with ARDS/flash pulmonary edema, non-ST elevation CO, acute renal injury, and thrombocytopenia. 3. September 13, 2019; Pomalidomide, ixazomib and dexamethasone. The pomalidomide was placed on hold due to fatigue, fever and just not feeling good generally . On 09/30/2019 the ixazomib was also placed on hold due to performance status and she continue with dexamethasone 20 mg 4 days a week. The steroids were stopped in anticipation of a left total hip arthroplasty scheduled for 10/30/2019. However her hip surgery and that being canceled because of anemia and hypercalcemia. 4. November 19, 2019 Aredia for hypercalcemia. 5. January 16, 2020 melphalan prednisone. She completed 1 cycle and then was found to have transfusion dependent anemia, neutropenia and thrombocytopenia. She had persistent hypercalcemia and had repeat Zometa and Aredia. She had hospitalization for cardiac ischemia with angioplasty to the LAD. She had recurrent admissions for CHF and pneumonia. PRESENT: Mrs. Red is here for follow-up. She will be starting new treatment with Blenrep but we are waiting on her eye exam and rems acceptance prior to shipment of the Blenrep. In the interim was noted that her hemoglobin on 03/24/2020 was 5.9. She is here today for transfusion services. Her ANC is 1140. Platelet count is 51,000. It is noted that her potassium is 4.2 creatinine is starting to elevated 1.2 and her calcium was 12.3. While we are waiting on the Blenrep she will proceed with daily high-dose dexamethasone for 4 days. As Monday will be given orally as office will be closed on Monday. She has no new concerns today. She continues to have fatigue and marginal performance status. She is short of breath and has increased fatigue due to the hemoglobin. She denies any bleeding. She has had some intermittent bruising but states is really been no worse than what her normal as. Her ECOG is 3. Past Medical History: Degenerative arthritis Hypertension Hypothyroidism Nephrolithiasis Peripheral neuropathy Type II diabetes Past Surgical History: Breast reduction Excision of Adler's neuroma x 3 Hysterectomy Left bunionectomy Lithotripsy for renal stones in 1959 and in 1989 Tonsillectomy Flu shot in 2018 D&C in 2012 Hysterectomy without oophorectomy in 2011 Right total hip arthroplasty in 2011 Laparoscopic cholecystectomy in 1991 Breast reduction in 1983 Cholecystectomy in 1982 Thyroidectomy in 1959 Allergies: Carfilzomib, Daratuzumab, EKG patches, Lisinopril, Pomalidomide, and revlimd. Medications: Acetaminophen Tablet Oral PRN AmLODIPine Besylate 1 Tablet (of 10 mg) Oral every am Aspirin 1 (81 mg) Tablet Oral daily Atorvastatin Calcium 1 Tablet (of 40 mg) Oral daily Clopidogrel Bisulfate 1 Tablet (of 75 mg) Oral daily Furosemide 1 Tablet (of 40 mg) Oral every am Isosorbide Mononitrate 1 Tablet (of 15 mg) Oral daily K-Tab 1 Tablet (of 20 meq) Tablet, controlled release Oral daily Levothyroxine Sodium 1 Tablet (of 125 mcg) Oral daily Metoprolol Succinate ER 1 Tablet (of 50 mg) Tablet SR 24 HR Oral b.i.d. Pantoprazole Sodium 1 Tablet (of 40 mg) Tablet, enteric coated Oral daily PreserVision AREDS 2 Tablet Oral daily Senna S 1 - 2 Tablet (of 8.6-50 mg) Oral daily Family History: Ms. Red's mother at age 83: congestive heart failure. Ms. Red's father is alive. Ms. Red has 1 brother who is alive. She has 2 sisters: 2 alive. Father is still living at age 103. Mother with congestive heart failure at age 83. She also had been treated for breast cancer, renal cell cancer, and uterine cancer. One brother and two sisters are in good health. Social History: Ms. Red is and she is retired. Ms. Red has never smoked. She is a nonsmoker. She does not drink alcohol. Review Of Symptoms: Constitutional Denies fevers, chills, night sweats, excessive fatigue. She states she has alot of Allergic/Immunologic No reactions. Eyes Denies significant visual changes. No diplopia. No amaurosis. Hematologic/Lymphatic Denies easy bruising or bleeding. The patient denies any tender or palpable lymph nodes. Respiratory Persistent shortness of breath on exertion, but denies chest pain, cough or hemoptysis. Denies orthopnea. Cardiovascular Denies anginal chest pain, palpitations or orthopnea. Gastrointestinal Denies nausea, vomiting, diarrhea, GI bleeding, or constipation. Denies change in bowel habits and/or stool color, or early satiety. Genitourinary (F) No hematuria, hesitancy, incontinence, vaginal bleeding, discharge or other problems with urination. Musculoskeletal Denies joint pain, swelling or redness. No decreased range of motion. Integumentary Denies chronic rashes, inflammation, ulcerations or skin changes. Neurologic Denies headache, blurred vision, and no areas of focal weakness or numbness. Psychiatric Denies insomnia, depression, marylin or mood swings. Vital Signs: Performed on Mar 25, 2020 14:32 Height - 66.00 in Temperature - 99.2 F (HIGH) Pulse - 74 /min Respiration - 18 /min BP - 128/68 mm(hg) O2 Sat - 18 % (LOW) Pain - 5 Fatigue - 6,3 - Capable of only limited self-care, confined to bed or chair more than 50% of waking hours. (ECOG) Physical Examination: Constitutional Alert, oriented, no acute distress. Skin pale, warm and dry. No acute distress but obviously does not feel well. Head Normocephalic; atraumatic. Eyes Conjunctivae and sclerae are clear and without icterus. Pupils are reactive and equal. ENMT Sinuses are nontender. No oral exudates, ulcers, masses, thrush or mucositis. Oropharynx clear. Tongue normal. Hematologic/Lymphatic No petechiae or purpura. Respiratory Lungs are clear to auscultation without rhonchi or wheezing. Cardiovascular Regular rate and rhythm of heart without murmurs,clicks, gallops or rubs. Abdomen Non-tender, non-distended, no masses, ascites. Integumentary No rashes or lesions.-see above Neurologic No sensory or motor deficits, normal cerebellar function, in wheelchair today. Psychiatric Alert and oriented times three. Coherent speech. Verbalizes understanding of our discussions today. Laboratory:Test performed on Mar 24, 2020 09:50 Sodium 132 mmol/L Potassium 4.2 mmol/L Chloride 107 mmol/L CO2 17 mmol/L Anion Gap 12.2 BUN 19 mg/dL Creatinine 1.2 mg/dL Cr Clearance (Est) 38.6100 mL/min Glucose 128 mg/dL Osmolality - Calculated 278 mOsm/kg Calcium 12.3 mg/dL Protein, Total 11.8 g/dL Albumin 2.2 g/dL Globulin 9.6 g/dL Bilirubin, Total 0.6 mg/dL ALT (SGPT) 19 U/L AST (SGOT) 31 U/L Alkaline Phosphatase 91 IU/L WBC 3.0 10 3/uL RBC 1.87 10 6/uL HGB 5.9 g/dL HCT 20.0 % MCV 107.0 fL MCH 31.6 pg MCHC 29.5 g/dL RDW 21.4 % Platelet Count 51 10 3/cmm MPV 11.8 fL Neutrophils 1.14 10 3/uL Lymphocytes 1.2 10 3/uL Monocytes 0.7 10 3/uL Eosinophils 0.0 10 3/uL Basophils 0.0 10 3/uL Neutrophil % 37.5 % Lymphocyte % 38.2 % Monocyte % 21.4 % Eosinophil % 1.3 % Basophils % 0.3 % NRBC % 0 % Irradiated Red Blood Cells [id number] ON RCI XM COMPATIBLE Anti-D Negative Blood Type BN Antibody Screen (Gel) NEGATIVE Test performed on Mar 17, 2020 10:55 Manual Lymphocytes 19.2 % Manual Monocytes 26.3 % Manual Eosinophils 1.8 % Manual Basophils 0.3 % Test performed on Mar 03, 2020 13:35 Leukocyte Reduced RBC [id number] BN RCLR XM COMPATIBLE Test performed on Feb 03, 2020 10:13 CBC Slide Review Slide Review Perform SLIDE REVIEW AGREES WITH AUTOMATED RESULTS/MISAEL Test performed on Dec 17, 2019 13:25 T3, Free 1.4 PG/ML T4, Free 2.40 ng/dL TSH 0.53 uIU/mL Test performed on Nov 12, 2019 08:46 Albumin, SPE 3.01 g/dL IGA 8 mg/dL IGG 6500 mg/dL IGM 10 mg/dL [place] / Lambda Ratio 186.89 Absolute Value Lambda Light Chain 1.60 [place] Light Chain 299.03 [id number]-0-[id number] 0.24 g/dL Dfjwq-1-kkraumvk 0.61 g/dL Beta Globulin 0.54 g/dL Gamma Globulin 5.46 g/dL SPE Interpretation significant increase in monoclonal proteinemia since prior study Test performed on Nov 01, 2019 09:34 Ferritin 27.1 ng/mL Folate 20 ng/mL Test performed on Oct 24, 2019 09:38 % Iron Saturation 34 % Iron, Total 117 mcg/dL TIBC 346 mcg/dL Impression: 1. Patient with IgG kappa myeloma. Her bone marrow aspiration/biopsy on 10/27/2017 was hypercellular with 63% plasma cells. 2. She had anemia, renal dysfunction, and symptomatic hypercalcemia at initial presentation. Her skeletal survey showed diffuse bone demineralization, but without evidence of any large osteolytic lesions. She had some improvement on initial treatment with high-dose dexamethasone and zoledronic acid. 3. She then began treatment with Velcade, Revlimid, and dexamethasone. She had a good response, though she had difficulty tolerating the Revlimid. 4. As of her follow-up visit in April 2018 her quantitative M protein was down to 0.21 g/dL, and her treatment was transitioned to maintenance Revlimid. She was not able to tolerate the Revlimid due to persistent skin eruption, and as of June 2018 she was followed on observation/expectant management.. Her other medical illnesses include: 5. Hypertension. 6. Type II diabetes. 7. Peripheral neuropathy. 8. Degenerative arthritis. 9. She has a history of nephrolithiasis. During her subsequent follow-up her clinical status initially remained stable. However, as of her follow-up in March 2019 there had been a slight drop in her hemoglobin/hematocrit levels, and her protein electrophoresis studies showed a significant increase in her M protein, to 2.11 g/dL, and a significant increase in the kappa free light chain, to 105.21 mg/L, with the kappa/lambda ratio elevated at 8.65. This was obviously consistent with progression of the myeloma. On 05/14/2019 she began a trial of second line therapy with daratumumab in combination with carfilzomib and dexamethasone. Following her day 2 treatment she required hospitalization for acute respiratory distress/pulmonary edema. Her clinical course was complicated by acute renal injury and thrombocytopenia. She did have a good recovery. Following hospitalization April 2019 she had gradual improvement in her performance status. However, by July 2019 her M protein had increased significantly, to 2.65 g/dL. Her restaging PET/CT showed no obvious involvement with myeloma. However, she was mildly anemic, and with the increasing M protein she then proceeded to 3d line treatment with pomalidomide in combination with ixazomib and dexamethasone. She tolerated the pomalidomide very poorly, and it was stopped early into the first cycle. As of her follow-up visit on 09/30/2019 the ixazomib was also put on hold. She then continued treatment with dexamethasone. During that time she had worsening pain in her left hip due to underlying degenerative disease. It became severe enough to significantly limit her activity, and at that point she was scheduled for left total hip arthroplasty. The procedure, though, and ended up being canceled due to anemia and hypercalcemia. Dr Muñoz had seen her for a follow-up visit on 11/19/2019. She was significantly anemic with hemoglobin 8.5 g. Her renal function was still adequate with creatinine 0.81 mg/dL, but her calcium was significantly elevated at 12.3 mg/dL, consistent with progression of her myeloma. She was given an infusion of sodium pamidronate for the hypercalcemia. Her further clinical course was complicated by a hospital admission for cardiac ischemia, requiring angioplasty with stent to the LAD. She then had to additional hospitalizations for pneumonia/congestive heart failure. During that time she had been transfused on 2 occasions. She was discharged home on 12/22/2019. Dr Muñoz had seen her for a follow-up visit on 01/02/2020. At that point she had persistent hypercalcemia and she developed moderately severe thrombocytopenia. Her renal function remained adequate. With those findings, she was offered a trial of therapy with melphalan/prednisone. She began cycle 1 on 01/16/2020. Overall, she has tolerated it with acceptable toxicity. During follow-up she did develop neutropenia and thrombocytopenia, neither of which was severe enough to require specific treatment. 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 Her hypercalcemia has persisted despite treatment with zoledronic acid and sodium pamidronate, and she has been showing decline in renal function. There also has been further decline in her performance status. Her protein levels did not decrease and given the side effects and recovery time, she was not offered any further treatment with melphalan/prednisone. She was given high-dose dexamethasone 40 mg IV daily for 4 days. She did show some increase in performance status and her labs did hold well for this. 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 She has had transfusion services as warranted for her anemia. She has been offered further treatment with belantamab mafodotin. She has expressed interest in pursuing this. Plan: PROBLEMS ADDRESSED TODAY: A. IgG kappa myeloma 1. We will pursue scheduling her for the belantamab mafodtin for progression of her multiple myeloma. She is scheduled for mandatory eye exam later this week and after that is complete, she will need to be treated within two weeks or have repeat eye exam. 2. Proceed with high dose dexamethasone IV x 3 days and do oral dose on Monday. She may start the Blenrep as soon as she is eligible per the [facility] program. (No specific wait time between dexamethasone and Blenrep). 3. Labs from 03/25/2020were reviewed in detail and discussed with Ms. Red and a copy was given to her. WBC 3.0, hemoglobin 5.9, platelets 51,000 ANC is 1140. Creatinine shows slight elevation at 1.2 calcium 12.3 albumin 2.2 potassium 4.2 random glucose 128. 4. She will return for follow-up prior to starting the belantamab mafodtin. Depending on the interval, she may need repeat labs including myeloma labs if it is more than 1 week. B SEVERE ANEMIA 1. Should be set up for transfusion services for 2 units of packed red blood cells due to the hemoglobin of 5.9 and she is symptomatic with fatigue and shortness of breath. 2. Anemia is most likely related to disease progression of the multiple myeloma. 3. Recheck CBC/Typenex early next week for possible transfusion services. Ms Red was instructed to call us in the interim if questions or problems arise. Signed By: Otto Sue-, AOCNP Kris Muñoz MD <<Signature on File>>
== END 2020-03-29 23:59 | disposition home or self-care (01) ==
LOC: ONCMED 05:32
PROVIDERS: Internal Medicine Medical Oncology; PCP Family Medicine; Visit Provider Nurse Practitioner
DX: C90.00 Multiple myeloma not having achieved remission (principal); D64.9 Anemia, unspecified; E83.52 Hypercalcemia; I10 Essential (primary) hypertension; E11.42 Type 2 diabetes mellitus with diabetic polyneuropathy; M19.90 Unspecified osteoarthritis, unspecified site; N20.0 Calculus of kidney; Z79.899 Other long term (current) drug therapy
CPT/HCPCS: 36430; 80048; 80053; 85025; 86850; 86900; 86920; 96361; 96365; 99214; J1100; J1940; J7040; J7050; P9040; P9058

== ENCOUNTER 2020-04-22 05:32 | Outpatient (RCR) | payer MEDICARE, SELFPAY ==
[2020-03-30 14:48] LABS: Basophils % 0.2 %; Hematocrit 21.1 % (37.0-47.0); Hemoglobin 6.6 g/dL (11.5-15.3); Lymphocytes # 0.5 10^3/uL (0.8-4.8); Lymphocytes % 10.7 %; Mean Corpuscular HGB Conc 31.3 g/dL (30.0-36.0); Mean Corpuscular Hemoglobin 31.1 pg (28.0-34.0); Mean Corpuscular Volume 99.5 fL (81-99); Mean Platelet Volume 10.9 fL (7.4-10.4); Monocytes # 0.4 10^3/uL (0.2-0.9); Neutrophils # 3.15 10^3/uL (1.8-7.7); Nucleated Red Blood Cells # 0.1 /100WBC; Nucleated Red Blood Cells % 1.4 %; Platelet Count 64 10^3/cmm (130-400); Red Blood Count 2.12 10^6/uL (4.1-5.3); Red Cell Distribution Width 20.5 % (12.1-15.1); White Blood Count 4.3 10^3/uL (4.0-10.0)
[2020-03-30 15:05] LABS: Neutrophils % 79.1 %
[2020-03-30 15:17] LABS: Blood Urea Nitrogen 28 mg/dL (8-23); Calcium 10.9 mg/dL (8.5-10.5); Carbon Dioxide 18 mmol/L (22-29); Chloride 106 mmol/L (98-107); Glucose 241 mg/dL (65-115); Osmolality Calculated 279 mOsm/kg (285-295); Sodium 128 mmol/L (136-145)
[2020-03-30 15:35] LABS: Anion Gap 7.6 (5-19); Potassium 3.6 mmol/L (3.5-5.1)
[2020-03-31] VITALS (10 sets, daily range): BP systolic 151–171; BP diastolic 56–72; PULSE 59–71; RESP 18; TEMP 36.6–36.9; O2SAT 97–99
[2020-03-31] MEDS: sodium chloride 0.9% 250 ML 999 ML IV (11:15)
[2020-03-31] MEDS: acetaminophen 325 mg Tablet 650 MG PO (11:15)
[2020-03-31] MEDS: diphenhydrAMINE 25 mg Capsule PO (11:15)
[2020-03-31] MEDS: FUROsemide 10 mg/mL SDV 2mL 20 MG IV (13:15)
[2020-04-01 08:39] LABS: Basophils % 0.3 %; Eosinophils % 0.5 %; Hematocrit 23.9 % (37.0-47.0); Hemoglobin 7.7 g/dL (11.5-15.3); Lymphocytes # 0.5 10^3/uL (0.8-4.8); Lymphocytes % 13.8 %; Mean Corpuscular HGB Conc 32.2 g/dL (30.0-36.0); Mean Corpuscular Hemoglobin 30.1 pg (28.0-34.0); Mean Corpuscular Volume 93.4 fL (81-99); Mean Platelet Volume 11.1 fL (7.4-10.4); Monocytes # 0.5 10^3/uL (0.2-0.9); Neutrophils # 2.57 10^3/uL (1.8-7.7); Neutrophils % 65.8 %; Nucleated Red Blood Cells # 0.1 /100WBC; Nucleated Red Blood Cells % 3.6 %; Platelet Count 74 10^3/cmm (130-400); Red Blood Count 2.56 10^6/uL (4.1-5.3); Red Cell Distribution Width 19.6 % (12.1-15.1); White Blood Count 3.9 10^3/uL (4.0-10.0)
[2020-04-01 09:01] LABS: Anion Gap 9.9 (5-19); Blood Urea Nitrogen 33 mg/dL (8-23); Calcium 10.9 mg/dL (8.5-10.5); Carbon Dioxide 22 mmol/L (22-29); Chloride 104 mmol/L (98-107); Glucose 162 mg/dL (65-115); Osmolality Calculated 285 mOsm/kg (285-295); Potassium 3.9 mmol/L (3.5-5.1); Sodium 132 mmol/L (136-145)
[2020-04-01] MEDS: acetaminophen 325 mg Tablet 650 MG PO (10:35)
[2020-04-01] MEDS: ondansetron 2 mg/ML SDV 2 mL 8 MG IVP (10:37)
[2020-04-01] MEDS: sodium chloride 0.9% 250 ML 999 ML IV (10:37)
[2020-04-01] MEDS: diphenhydrAMINE 50 mg/mL SDV 1mL 25 MG IVP (10:40)
[2020-04-01] MEDS: sodium chloride 0.9% (100 ml) 100 ML 500 ML (10:40)
[2020-04-02] VITALS (11 sets, daily range): BP systolic 131–151; BP diastolic 44–64; PULSE 68–72; RESP 17–18; TEMP 37.2–37.7; O2SAT 96–98
[2020-04-02] MEDS: sodium chloride 0.9% 250 ML 999 ML IV (09:00)
[2020-04-02] MEDS: diphenhydrAMINE 25 mg Capsule PO ×2 (09:00→12:12)
[2020-04-02] MEDS: acetaminophen 325 mg Tablet 650 MG PO (09:00)
[2020-04-02] MEDS: FUROsemide 10 mg/mL SDV 2mL 40 MG IV (12:13)
--- NOTE | 2020-04-09 14:08 | ONC FU_ITS ---
[facility] Patient Note Patient: Alta Red Unit #: [id number]: 1935 Dictated By: Otto SueDate of Visit: Apr 01, 2020 Onc MED Follow-Up/Prog Note Chief Complaint: Myeloma. History of Present Illness: Mrs Red is an 84 year-old woman with IgG kappa myeloma. She had presented to Dr. Nieto on 10/24/2017 with complaints of dizziness/lightheadedness, fatigue, and anorexia. She reported that at times she felt like passing out and having to lie down. She reported having problems with memory and she complained that she had been sleeping a lot. Her CBC showed low hemoglobin at 8.8 g, white blood cell count borderline at 4300 and platelet count mildly decreased at 103,000. Her comprehensive metabolic profile showed elevated BUN and creatinine at 23 and 1.42 mg/dL and significantly elevated serum calcium at 14.5 mg/dL with albumin low at 2.5 g/dL. The calculated serum globulin was significantly elevated at 7.9 g/dL. Bone marrow aspiration/biopsy on 10/27/2017 showed hypercellular marrow with 63% plasma cells, consistent with myeloma. At that time, she was given an infusion of sodium pamidronate for the hypercalcemia, and she also was given dexamethasone 40 mg daily for 4 days. Skeletal survey on 10/27/2017 showed evidence of diffuse bone demineralization but without evidence of large osteolytic lesion. Subcentimeter lucent foci in the femur bilaterally were felt to be consistent with osteoporosis, myelomatous lesions, or metastatic disease. Serum protein electrophoresis and 11/20/2017 showed IgG kappa paraprotein quantitating at 4.1 g/dL. The free light chain assay showed elevated free kappa light chain at 228.24 mg/L with elevated kappa/lambda ratio at 17.40. She returned on 11/16/2017 to begin treatment with Velcade/Revlimid/dexamethasone. It was opted to use a weekly Velcade regimen on a 21/28 day schedule. Due to her age and renal function, the Revlimid was initiated at a reduced dosage of 10 mg daily for 21 days. The dexamethasone was reduced to 20 mg weekly. At that time, her calcium had become elevated again at 10.3 mg/dL with albumin 2.2 g/dL. Her renal function had improved with creatinine down to 1.0 mg/dL. As such, she was given zoledronic acid 3.5 mg by IV infusion. On 11/20/2017 she came in with a 2-day history of fever and chills. A specific source of infection was not identified other than her chest x-ray was suspicious for possible pneumonia. She was treated empirically with Levaquin, Dr Muñoz did opt to put her Revlimid on hold, as she also was having diarrhea at that point. Her follow-up CBC on 11/23/2017 showed further decline in hemoglobin to 6.4 g, and the following day she was transfused 2 units of PRBC. She did receive her day 8 Velcade, and she was able to return for day 15 Velcade on 11/29/2017. Hemoglobin at that point was adequate at 9.9 g. She then continued her 2nd cycle on 12/13/2017 with the Revlimid omitted. The Velcade was again administered weekly for 3 weeks, and the dexamethasone was changed to 20 mg twice weekly. A repeat protein electrophoresis on 12/25/2017 showed significant improvement with the M protein quantitating at 0.73 g/dL. She then continued with cycle 3 of Velcade/dexamethasone on 01/11/2018, with cycle 4 on 02/07/2018, with cycle 5 on 03/06/2018, and with cycle 6 on 04/04/2018. Her repeat serum protein electrophoresis on 05/01/2018 showed 2 monoclonal protein bands which together quantitated at 0.21 g/dL compared to 0.31 g/dL on 03/06/2018. The serum free light chain assay showed normal kappa light chain at 1.28 mg/dL and normal lambda light chain at 1.52 mg/dL with the kappa/lambda ratio normal at 0.8421. She was seen for a follow-up visit on 05/02/2018, and she then began maintenance Revlimid at 5 mg daily. As of 05/29/2018 the Revlimid was put on hold due to worsening skin eruption. The skin eruption had initially continued to worsen somewhat after stopping the Revlimid, but it then gradually resolved. Dr Muñoz had seen her for a follow-up visit on 07/17/2018. At that point she had only minimal residual M protein. She appeared stable clinically, and given the side effects she experienced with her treatment, it was opted to just follow her on observation/expectant management. Her other medical illnesses include hypertension, type II diabetes with peripheral neuropathy, and degenerative arthritis. She is a nonsmoker. INTERIM HISTORY: As of March 2019 there was a significant increase in her M protein and in her kappa free light chain. She had become mildly anemic. It was clear at that point that her myeloma was progressing, and we opted to proceed to a trial of second line therapy with daratumumab in combination with carfilzomib and dexamethasone. She began her day 1 treatment on 05/14/2019, which she tolerated well. However, following her day 2 treatment she was admitted to the hospital with acute respiratory distress/flash pulmonary edema. Her clinical course was complicated by non-ST elevation myocardial infarction, acute renal injury, and thrombocytopenia. She did have a good recovery, and she was then followed on observation/expectant management. As of July 2019 her M protein had increased significantly, to 2.65 g/dL. At that point she had become mildly anemic, hemoglobin 10.4 g. Her renal function, though, remained normal with creatinine 0.78 mg/dL. Restaging PET/CT on 08/29/2019 was felt to be likely a negative examination with no evidence for osseous or soft tissue tumor involvement. There were findings which were felt to most likely reflect prominent arthritic changes. With the significant increase in her M protein, she started 3rd line treatment with pomalidomide in combination with ixazomib and dexamethasone, cycle 1 beginning on 09/13/2019. The pomalidomide was put on hold due to side effects, the most significant being fatigue, fever, and just not feeling good generally. As of her follow-up visit on 09/30/2019 the ixazomib was also put on hold. She then continued treatment with dexamethasone 20 mg [address] Muñoz had seen her for a follow-up visit on 10/15/2019. At that time she planning to undergo left total hip arthroplasty. The procedure had been scheduled for 10/30/2019. As such, Dr Muñoz had stopped her steroid therapy. However, her hip surgery ended up being canceled, because of anemia and hypercalcemia. Dr Muñoz had seen her for a follow-up visit on 11/19/2019. At that time he had discussed the possibility of continuing further treatment either with melphalan/prednisone or with belantamab [id number]. She was significantly anemic with hemoglobin 8.5 g. Renal function was still normal with creatinine 0.81 mg/dL, but calcium was significantly elevated at 12.3 mg/dL. She was given an infusion of sodium pamidronate. Her further clinical course was complicated by hospital admission for cardiac ischemia requiring angioplasty with stent placement to the LAD. She had to subsequent hospitalizations for congestive heart failure/pneumonia. She was discharged home on 12/22/2019. During that time, she was transfused on [address] Muñoz had seen her for a follow-up visit on 01/02/2020. Given her progression following VRd/maintenance Revlimid and poor tolerance for pomalidomide, carfilzomib, and daratumumab, she was trial of therapy with melphalan/prednisone. She began cycle 1 on 01/16/2020. 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 She developed neutropenia and thrombocytopenia, neither of which was severe enough to require specific treatment. She also has had hypercalcemia which has persisted despite treatment with zoledronic acid and sodium pamidronate. MYELOMA TREATMENT HISTORY: 1. November 16, 2017: Velcade (weekly) Revlimid 10 mg 21 out of 28 days/dexamethasone 20 mg weekly and Zometa 3.5 mg. The Reglan was placed on hold on 11/20/17 due to fever and chills possible pneumonia and persistent diarrhea. Revlimid was reattempted with cycle 7 Velcade dexamethasone. It was omitted again on 05/29/2018 due to worsening skin eruption. She had only minimal residual M protein on 07/17/2018. Is at that time opted to just follow her on observation expectant management. 2. April 2019: daratumumab, carfilzomib and dexamethasone. She was admitted on day 2 of cycle 1 with ARDS/flash pulmonary edema, non-ST elevation OR, acute renal injury, and thrombocytopenia. 3. September 13, 2019; Pomalidomide, ixazomib and dexamethasone. The pomalidomide was placed on hold due to fatigue, fever and just not feeling good generally . On 09/30/2019 the ixazomib was also placed on hold due to performance status and she continue with dexamethasone 20 mg 4 days a week. The steroids were stopped in anticipation of a left total hip arthroplasty scheduled for 10/30/2019. However her hip surgery and that being canceled because of anemia and hypercalcemia. 4. November 19, 2019 Aredia for hypercalcemia. 5. January 16, 2020 melphalan prednisone. She completed 1 cycle and then was found to have transfusion dependent anemia, neutropenia and thrombocytopenia. She had persistent hypercalcemia and had repeat Zometa and Aredia. She had hospitalization for cardiac ischemia with angioplasty to the LAD. She had recurrent admissions for CHF and pneumonia. PRESENT: Mrs. Red is here for follow-up. She will be staring new treatment with Blenrep today as she has completed her eye exam. She did receive 2 units of PRBS yesterday for a symptomatic HGB of 6.6. Her Hgb is 7.7 today. We will plan for 2 more units of PRBCs tomorrow. She has no new concerns today. She continues to have fatigue and marginal performance status. She is short of breath and has increased fatigue due to the hemoglobin. She denies any bleeding. She has had some intermittent bruising but states is really been no worse than what her normal as. Her platelet count is 74,000 today. Her ECOG is 3. Past Medical History: Degenerative arthritis Hypertension Hypothyroidism Nephrolithiasis Peripheral neuropathy Type II diabetes Past Surgical History: Breast reduction Excision of Adler's neuroma x 3 Hysterectomy Left bunionectomy Lithotripsy for renal stones in 1959 and in 1989 Tonsillectomy Flu shot in 2018 D&C in 2012 Hysterectomy without oophorectomy in 2011 Right total hip arthroplasty in 2011 Laparoscopic cholecystectomy in 1991 Breast reduction in 1983 Cholecystectomy in 1982 Thyroidectomy in 1959 Allergies: Carfilzomib, Daratuzumab, EKG patches, Lisinopril, Pomalidomide, and revlimd. Medications: Acetaminophen Tablet Oral PRN AmLODIPine Besylate 1 Tablet (of 10 mg) Oral every am Aspirin 1 (81 mg) Tablet Oral daily Atorvastatin Calcium 1 Tablet (of 40 mg) Oral daily Clopidogrel Bisulfate 1 Tablet (of 75 mg) Oral daily Furosemide 1 Tablet (of 40 mg) Oral every am Isosorbide Mononitrate 1 Tablet (of 15 mg) Oral daily K-Tab 1 Tablet (of 20 meq) Tablet, controlled release Oral daily Levothyroxine Sodium 1 Tablet (of 125 mcg) Oral daily Metoprolol Succinate ER 1 Tablet (of 50 mg) Tablet SR 24 HR Oral b.i.d. Pantoprazole Sodium 1 Tablet (of 40 mg) Tablet, enteric coated Oral daily PreserVision AREDS 2 Tablet Oral daily Senna S 1 - 2 Tablet (of 8.6-50 mg) Oral daily Family History: Ms. Red's mother at age 83: congestive heart failure. Ms. Red's father is alive. Ms. Red has 1 brother who is alive. She has 2 sisters: 2 alive. Father is still living at age 103. Mother with congestive heart failure at age 83. She also had been treated for breast cancer, renal cell cancer, and uterine cancer. One brother and two sisters are in good health. Social History: Ms. Red is and she is retired. Ms. Red has never smoked. She is a nonsmoker. She does not drink alcohol. Review Of Symptoms: Constitutional Denies fevers, chills, night sweats, excessive fatigue. She states she has alot of fatigue but no worse than what it has been. Eyes Denies significant visual changes. No diplopia. No amaurosis. ENMT Denies changes in hearing, sore throat, mouth sores, difficulty or changes in swallowing ability, and/or sinus drainage. Hematologic/Lymphatic Denies easy bruising or bleeding. The patient denies any tender or palpable lymph nodes. Respiratory Persistent shortness of breath on exertion, but denies chest pain, cough or hemoptysis. Denies orthopnea. Cardiovascular Denies anginal chest pain, palpitations or orthopnea. Gastrointestinal Denies nausea, vomiting, diarrhea, GI bleeding, or constipation. Denies change in bowel habits and/or stool color, or early satiety. Genitourinary (F) No hematuria, hesitancy, incontinence, vaginal bleeding, discharge or other problems with urination. Musculoskeletal Denies joint pain, swelling or redness. No decreased range of motion. Integumentary Denies chronic rashes, inflammation, ulcerations or skin changes. Neurologic Denies headache, blurred vision, and no areas of focal weakness or numbness. Psychiatric Denies insomnia, depression, marylin or mood swings. Vital Signs: ,3 - Capable of only limited self-care, confined to bed or chair more than 50% of waking hours. (ECOG) Physical Examination: Constitutional Alert, oriented, no acute distress. Skin pale, warm and dry. No acute distress but obviously does not feel well. Head Normocephalic; atraumatic. Eyes Conjunctivae and sclerae are clear and without icterus. Pupils are reactive and equal. Hematologic/Lymphatic No petechiae or purpura. Respiratory Lungs are clear to auscultation without rhonchi or wheezing. Cardiovascular Regular rate and rhythm of heart without murmurs,clicks, gallops or rubs. Abdomen Non-tender, non-distended, no masses, ascites. Back/Spine Non-tender to palpation. Extremities No visible deformities, no cyanosis, clubbing or edema. Musculoskeletal No tenderness or swelling, normal range of motion without obvious weakness. Integumentary No rashes or lesions.-see above Neurologic No sensory or motor deficits, normal cerebellar function, in wheelchair today. Psychiatric Alert and oriented times three. Coherent speech. Verbalizes understanding of our discussions today. Laboratory:Test performed on Apr 08, 2020 13:54 Glucose 104 mg/dL BUN 15 mg/dL Creatinine 0.99 mg/dL Cr Clearance (Est) 46.80 mL/min Sodium 130 mmol/L Potassium 4.1 mmol/L Chloride 102 mmol/L CO2 18 mmol/L Calcium 10.7 mg/dL WBC 3.9 10^9/L RBC 3.17 10^12/L HGB 9.7 g/dL HCT 28.3 % MCV 89.3 fl MCH 30.6 pg MCHC 34.3 g/dL RDW 19.1 % Platelet Count 30 10^9/L MPV 10.2 fL Neutrophils (Gran) 2.10 10^9/L Lymphocytes 1.10 10^9/L Monocytes 0.58 10^9/L Eosinophils 0.01 10^9/L Basophils 0.00 10^9/L Manual Lymphocytes 28 % Manual Monocytes 15 % Manual Eosinophils 0 % Manual Basophils 0 % Test performed on Apr 01, 2020 08:15 Anion Gap 9.9 Osmolality - Calculated 285 mOsm/kg Neutrophil % 65.8 % Lymphocyte % 13.8 % Monocyte % 13.0 % Eosinophil % 0.5 % Basophils % 0.3 % NRBC % 3.6 % Test performed on Mar 24, 2020 09:50 Protein, Total 11.8 g/dL Albumin 2.2 g/dL Globulin 9.6 g/dL Bilirubin, Total 0.6 mg/dL ALT (SGPT) 19 U/L AST (SGOT) 31 U/L Alkaline Phosphatase 91 IU/L Irradiated Red Blood Cells [id number] ON RCI XM COMPATIBLE Anti-D Negative Blood Type BN Antibody Screen (Gel) NEGATIVE Test performed on Mar 03, 2020 13:35 Leukocyte Reduced RBC [id number] BN RCLR XM COMPATIBLE Test performed on Feb 03, 2020 10:13 CBC Slide Review Slide Review Perform SLIDE REVIEW AGREES WITH AUTOMATED RESULTS/MISAEL Test performed on Dec 17, 2019 13:25 T3, Free 1.4 PG/ML T4, Free 2.40 ng/dL TSH 0.53 uIU/mL Test performed on Nov 12, 2019 08:46 Albumin, SPE 3.01 g/dL IGA 8 mg/dL IGG 6500 mg/dL IGM 10 mg/dL [place] / Lambda Ratio 186.89 Absolute Value Lambda Light Chain 1.60 [place] Light Chain 299.03 [id number] 0.24 g/dL Pcghm-7-csdbkrsk 0.61 g/dL Beta Globulin 0.54 g/dL Gamma Globulin 5.46 g/dL SPE Interpretation significant increase in monoclonal proteinemia since prior study Test performed on Nov 01, 2019 09:34 Ferritin 27.1 ng/mL Folate 20 ng/mL Test performed on Oct 24, 2019 09:38 % Iron Saturation 34 % Iron, Total 117 mcg/dL TIBC 346 mcg/dL Impression: 1. Patient with IgG kappa myeloma. Her bone marrow aspiration/biopsy on 10/27/2017 was hypercellular with 63% plasma cells. 2. She had anemia, renal dysfunction, and symptomatic hypercalcemia at initial presentation. Her skeletal survey showed diffuse bone demineralization, but without evidence of any large osteolytic lesions. She had some improvement on initial treatment with high-dose dexamethasone and zoledronic acid. 3. She then began treatment with Velcade, Revlimid, and dexamethasone. She had a good response, though she had difficulty tolerating the Revlimid. 4. As of her follow-up visit in April 2018 her quantitative M protein was down to 0.21 g/dL, and her treatment was transitioned to maintenance Revlimid. She was not able to tolerate the Revlimid due to persistent skin eruption, and as of June 2018 she was followed on observation/expectant management.. Her other medical illnesses include: 5. Hypertension. 6. Type II diabetes. 7. Peripheral neuropathy. 8. Degenerative arthritis. 9. She has a history of nephrolithiasis. During her subsequent follow-up her clinical status initially remained stable. However, as of her follow-up in March 2019 there had been a slight drop in her hemoglobin/hematocrit levels, and her protein electrophoresis studies showed a significant increase in her M protein, to 2.11 g/dL, and a significant increase in the kappa free light chain, to 105.21 mg/L, with the kappa/lambda ratio elevated at 8.65. This was obviously consistent with progression of the myeloma. On 05/14/2019 she began a trial of second line therapy with daratumumab in combination with carfilzomib and dexamethasone. Following her day 2 treatment she required hospitalization for acute respiratory distress/pulmonary edema. Her clinical course was complicated by acute renal injury and thrombocytopenia. She did have a good recovery. Following hospitalization April 2019 she had gradual improvement in her performance status. However, by July 2019 her M protein had increased significantly, to 2.65 g/dL. Her restaging PET/CT showed no obvious involvement with myeloma. However, she was mildly anemic, and with the increasing M protein she then proceeded to 3d line treatment with pomalidomide in combination with ixazomib and dexamethasone. She tolerated the pomalidomide very poorly, and it was stopped early into the first cycle. As of her follow-up visit on 09/30/2019 the ixazomib was also put on hold. She then continued treatment with dexamethasone. During that time she had worsening pain in her left hip due to underlying degenerative disease. It became severe enough to significantly limit her activity, and at that point she was scheduled for left total hip arthroplasty. The procedure, though, and ended up being canceled due to anemia and hypercalcemia. Dr Muñoz had seen her for a follow-up visit on 11/19/2019. She was significantly anemic with hemoglobin 8.5 g. Her renal function was still adequate with creatinine 0.81 mg/dL, but her calcium was significantly elevated at 12.3 mg/dL, consistent with progression of her myeloma. She was given an infusion of sodium pamidronate for the hypercalcemia. Her further clinical course was complicated by a hospital admission for cardiac ischemia, requiring angioplasty with stent to the LAD. She then had to additional hospitalizations for pneumonia/congestive heart failure. During that time she had been transfused on 2 occasions. She was discharged home on 12/22/2019. Dr Muñoz had seen her for a follow-up visit on 01/02/2020. At that point she had persistent hypercalcemia and she developed moderately severe thrombocytopenia. Her renal function remained adequate. With those findings, she was offered a trial of therapy with melphalan/prednisone. She began cycle 1 on 01/16/2020. Overall, she has tolerated it with acceptable toxicity. During follow-up she did develop neutropenia and thrombocytopenia, neither of which was severe enough to require specific treatment. 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 Her hypercalcemia has persisted despite treatment with zoledronic acid and sodium pamidronate, and she has been showing decline in renal function. There also has been further decline in her performance status. Her protein levels did not decrease and given the side effects and recovery time, she was not offered any further treatment with melphalan/prednisone. She was given high-dose dexamethasone 40 mg IV daily for 4 days. She did show some increase in performance status and her labs did hold well for this. 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 She has had transfusion services as warranted for her anemia. She has been offered further treatment with belantamab mafodotin. She has expressed interest in pursuing this. Plan: PROBLEMS ADDRESSED TODAY: A. IgG kappa myeloma 1. We will pursue cycle 1 day 1 belantamab mafodtin for progression of her multiple myeloma. 2. She completed high dose dexamethasone IV x 3 days and an oral dose on Monday, March 28, 2020 . 3. Labs from 04/01/2020were reviewed in detail and discussed with Ms. Red and a copy was given to her. WBC 3.9, hemoglobin 7.7, platelets 74,000 ANC is 2570. Creatinine 0.9, calcium 10.9. I have asked for baseline myeloma labs to be drawn in the am while she is here for transfusions services as she did not have them drawn today. 4. She will return for follow-up in 3 weeks for cycle 2 belantamab mafodtin. B SEVERE ANEMIA 1. She will be set up for transfusion services for 2 units of packed red blood cells for 04/02/2020 due to the hemoglobin of 7.7 and she is symptomatic with fatigue and shortness of breath. 2. Anemia is most likely related to disease progression of the multiple myeloma. 3. Recheck CBC/Typenex early next week and them weekly for possible transfusion services and chemotherapy monitoring. Ms Red was instructed to call us in the interim if questions or problems arise. Signed By: Dede SueNLis-, AOCNP Kris Muñoz MD <<Signature on File>>
[2020-04-14 16:55] LABS: Basophils % 0.5 %; Eosinophils # 0.1 10^3/uL (0.0-0.8); Eosinophils % 1.3 %; Lymphocytes # 1.1 10^3/uL (0.8-4.8); Lymphocytes % 28.1 %; Mean Corpuscular Hemoglobin 29.9 pg (28.0-34.0); Mean Corpuscular Volume 96.3 fL (81-99); Mean Platelet Volume 10.9 fL (7.4-10.4); Monocytes # 1.1 10^3/uL (0.2-0.9); Monocytes % 27.8 %; Neutrophils # 1.63 10^3/uL (1.8-7.7); Neutrophils % 41.5 %; Nucleated Red Blood Cells % 0 %; Platelet Count 42 10^3/cmm (130-400); Red Blood Count 3.01 10^6/uL (4.1-5.3); Red Cell Distribution Width 19.9 % (12.1-15.1); White Blood Count 3.9 10^3/uL (4.0-10.0)
[2020-04-14 17:12] LABS: Anion Gap 11.2 (5-19); Blood Urea Nitrogen 13 mg/dL (8-23); Calcium 11.3 mg/dL (8.5-10.5); Carbon Dioxide 20 mmol/L (22-29); Chloride 104 mmol/L (98-107); Glucose 87 mg/dL (65-115); Osmolality Calculated 271 mOsm/kg (285-295); Potassium 4.2 mmol/L (3.5-5.1); Sodium 131 mmol/L (136-145)
[2020-04-21 19:00] LABS: Basophils % 0.5 %; Eosinophils # 0.1 10^3/uL (0.0-0.8); Eosinophils % 1.2 %; Hematocrit 23.8 % (37.0-47.0); Hemoglobin 7.2 g/dL (11.5-15.3); Lymphocytes # 1.8 10^3/uL (0.8-4.8); Lymphocytes % 43.5 %; Mean Corpuscular HGB Conc 30.3 g/dL (30.0-36.0); Mean Corpuscular Hemoglobin 30.4 pg (28.0-34.0); Mean Corpuscular Volume 100.4 fL (81-99); Mean Platelet Volume 10.7 fL (7.4-10.4); Monocytes # 1.2 10^3/uL (0.2-0.9); Monocytes % 28.9 %; Neutrophils # 1.01 10^3/uL (1.8-7.7); Neutrophils % 24.9 %; Nucleated Red Blood Cells % 0 %; Platelet Count 73 10^3/cmm (130-400); Red Blood Count 2.37 10^6/uL (4.1-5.3); Red Cell Distribution Width 20.5 % (12.1-15.1); White Blood Count 4.1 10^3/uL (4.0-10.0)
[2020-04-21 20:34] LABS: Anion Gap 10.2 (5-19); Blood Urea Nitrogen 17 mg/dL (8-23); Calcium 11.4 mg/dL (8.5-10.5); Carbon Dioxide 21 mmol/L (22-29); Chloride 106 mmol/L (98-107); Glucose 101 mg/dL (65-115); Osmolality Calculated 278 mOsm/kg (285-295); Potassium 4.2 mmol/L (3.5-5.1); Sodium 133 mmol/L (136-145)
[2020-04-22] MEDS: sodium chloride 0.9% 250 ML 999 ML IV (11:00)
[2020-04-22] MEDS: acetaminophen 325 mg Tablet 650 MG PO (11:00)
[2020-04-22] MEDS: ondansetron 2 mg/ML SDV 2 mL 8 MG IVP (11:02)
[2020-04-22] MEDS: diphenhydrAMINE 50 mg/mL SDV 1mL 25 MG IVP (11:05)
[2020-04-22] MEDS: FUROsemide 10 mg/mL SDV 2mL 20 MG IV (14:20)
--- NOTE | 2020-04-23 19:51 | ONC FU_ITS ---
Dr. Muñoz Patient Follow-Up Note Patient: [facility] #: [id number]: [id number] Dicatated By: Kris Muñoz M.D.Date of Visit:Apr 22, 2020 Onc Med Follow-up/Prog Note Chief Complaint: Myeloma. History of Present Illness: This is an 84 year-old woman with IgG kappa myeloma. She had presented to Dr. Nieto on 10/24/2017 with complaints of dizziness/lightheadedness, fatigue, and anorexia. She reported that at times she felt like passing out and having to lie down. She reported having problems with memory and she complained that she had been sleeping a lot. Her CBC showed low hemoglobin at 8.8 g, white blood cell count borderline at 4300 and platelet count mildly decreased at 103,000. Her comprehensive metabolic profile showed elevated BUN and creatinine at 23 and 1.42 mg/dL and significantly elevated serum calcium at 14.5 mg/dL with albumin low at 2.5 g/dL. The calculated serum globulin was significantly elevated at 7.9 g/dL. Bone marrow aspiration/biopsy on 10/27/2017 showed hypercellular marrow with 63% plasma cells, consistent with myeloma. At that time, she was given an infusion of sodium pamidronate for the hypercalcemia, and she also was given dexamethasone 40 mg daily for 4 days. Skeletal survey on 10/27/2017 showed evidence of diffuse bone demineralization but without evidence of large osteolytic lesion. Subcentimeter lucent foci in the femora bilaterally were felt to be consistent with osteoporosis, myelomatous lesions, or metastatic disease. Serum protein electrophoresis and 11/20/2017 showed IgG kappa paraprotein quantitating at 4.1 g/dL. The free light chain assay showed elevated free kappa light chain at 228.24 mg/L with elevated kappa/lambda ratio at 17.40. She returned on 11/16/2017 to begin treatment with Velcade/Revlimid/dexamethasone. I opted to use a weekly Velcade regimen on a 21/28 day schedule. Due to her age and renal function, the Revlimid was initiated at a reduced dosage of 10 mg daily for 21 days. The dexamethasone was reduced to 20 mg weekly. At that time, her calcium had become elevated again at 10.3 mg/dL with albumin 2.2 g/dL. Her renal function had improved with creatinine down to 1.0 mg/dL. As such, she was given zoledronic acid 3.5 mg by IV infusion. On 11/20/2017 she came in with a 2-day history of fever and chills. A specific source of infection was not identified other than her chest x-ray was suspicious for possible pneumonia. She was treated empirically with Levaquin, I did opt to put her Revlimid on hold, as she also was having diarrhea at that point. Her follow-up CBC on 11/23/2017 showed further decline in hemoglobin to 6.4 g, and the following day she was transfused 2 units of PRBC. She did receive her day 8 Velcade, and she was able to return for day 15 Velcade on 11/29/2017. Hemoglobin at that point was adequate at 9.9 g. She then continued her 2nd cycle on 12/13/2017 with the Revlimid omitted. The Velcade was again administered weekly for 3 weeks, and the dexamethasone was changed to 20 mg twice weekly. A repeat protein electrophoresis on 12/25/2017 showed significant improvement with the M protein quantitating at 0.73 g/dL. She then continued with cycle 3 of Velcade/dexamethasone on 01/11/2018, with cycle 4 on 02/07/2018, with cycle 5 on 03/06/2018, and with cycle 6 on 04/04/2018. Her repeat serum protein electrophoresis on 05/01/2018 showed 2 monoclonal protein bands which together quantitated at 0.21 g/dL compared to 0.31 g/dL on 03/06/2018. The serum free light chain assay showed normal kappa light chain at 1.28 mg/dL and normal lambda light chain at 1.52 mg/dL with the kappa/lambda ratio normal at 0.8421. She was seen for a follow-up visit on 05/02/2018, and she then began maintenance Revlimid at 5 mg daily. As of 05/29/2018 the Revlimid was put on hold due to worsening skin eruption. The skin eruption had initially continued to worsen somewhat after stopping the Revlimid, but it then gradually resolved. I had seen her for a follow-up visit on 07/17/2018. At that point she had only minimal residual M protein. She appeared stable clinically, and given the side effects she experienced with her treatment, I opted to just follow her on observation/expectant management. As of March 2019 there was a significant increase in her M protein and in her kappa free light chain. She had become mildly anemic. It was clear at that point that her myeloma was progressing, and we opted to proceed to a trial of second line therapy with daratumumab in combination with carfilzomib and dexamethasone. She began her day 1 treatment on 05/14/2019, which she tolerated well. However, following her day 2 treatment she was admitted to the hospital with acute respiratory distress/flash pulmonary edema. Her clinical course was complicated by non-ST elevation myocardial infarction, acute renal injury, and thrombocytopenia. She did have a good recovery, and she was then followed on observation/expectant management. As of July 2019 her M protein had increased significantly, to 2.65 g/dL. At that point she had become mildly anemic, hemoglobin 10.4 g. Her renal function, though, remained normal with creatinine 0.78 mg/dL. Restaging PET/CT on 08/29/2019 was felt to be likely a negative examination with no evidence for osseous or soft tissue tumor involvement. There were findings which were felt to most likely reflect prominent arthritic changes. With the significant increase in her M protein, she started 3rd line treatment with pomalidomide in combination with ixazomib and dexamethasone, cycle 1 beginning on 09/13/2019. The pomalidomide was put on hold due to side effects, the most significant being fatigue, fever, and just not feeling good generally. As of her follow-up visit on 09/30/2019 the ixazomib was also put on hold. She then continued treatment with dexamethasone 20 mg 4 days a week. I had seen her for a follow-up visit on 10/15/2019. At that time she planning to undergo left total hip arthroplasty. The procedure had been scheduled for 10/30/2019. As such, I had stopped her steroid therapy. However, her hip surgery ended up being canceled, because of anemia and hypercalcemia. I had seen her for a follow-up visit on 11/19/2019. At that time I had discussed the possibility of continuing further treatment either with melphalan/prednisone or with belantamab [id number]. She was significantly anemic with hemoglobin 8.5 g. Renal function was still normal with creatinine 0.81 mg/dL, but calcium was significantly elevated at 12.3 mg/dL. She was given an infusion of sodium pamidronate. Her further clinical course was complicated by hospital admission for cardiac ischemia requiring angioplasty with stent placement to the LAD. She had to subsequent hospitalizations for congestive heart failure/pneumonia. She was discharged home on 12/22/2019. During that time, she was transfused on 2 different occasions. I had seen her for a follow-up visit on 01/02/2020. Given her progression following VRd/maintenance Revlimid and poor tolerance for pomalidomide, carfilzomib, and daratumumab, I had recommended a trial of therapy with melphalan/prednisone. She began cycle 1 on 01/16/2020. 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 She developed neutropenia and thrombocytopenia, neither of which was severe enough to require specific treatment. She also has had hypercalcemia which has persisted despite treatment with zoledronic acid and sodium pamidronate. Her medical illnesses, in addition to the myeloma, include hypertension, type II diabetes with peripheral neuropathy, coronary artery disease, and degenerative arthritis. She is a nonsmoker. INTERIM HISTORY: On 04/01/2020 she began cycle 1 of belantamab mafodotin. She tolerated the initial infusion without significant toxicity, but the following day she did run low-grade fever. She improved on empiric antibiotic therapy with Levaquin. During this time she had remained transfusion dependent. Her creatinine and calcium levels, though, had stabilized. She is seen for a follow-up visit. She has not had any recurrence of fever after completing the antibiotic therapy. She says her energy has been medium. There has been some improvement in her activity tolerance. ECOG score is 2. Her appetite is been a little better, but her weight is down. She has not had night sweating. She says her vision is not quite as clear, but her eye exams have been okay. She has not had sore mouth or throat. She has some shortness of breath. She has a small cough. She occasionally brings up pale yellow sputum. She does not complain of chest pain. She currently has no GI or complaints. She says her bowel function lately has been better. She continues to have pain in her left hip and in both knees. She has no other joint or bone pain. She does not complain of headache. She sometimes feels woozy. She has no focal neurologic symptoms. Medications: Acetaminophen Tablet Oral PRN, AmLODIPine Besylate 1 Tablet (of 10 mg) Oral every am, Atorvastatin Calcium 1 Tablet (of 40 mg) Oral daily, Clopidogrel Bisulfate 1 Tablet (of 75 mg) Oral daily, Furosemide 1 Tablet (of 40 mg) Oral every am, Isosorbide Mononitrate 1 Tablet (of 30 mg) Oral daily, K-Tab 1 Tablet (of 20 meq) Tablet, controlled release Oral daily, Levothyroxine Sodium 1 Tablet (of 125 mcg) Oral daily, Metoprolol Succinate ER 1 Tablet (of 50 mg) Tablet SR 24 HR Oral b.i.d., Pantoprazole Sodium 1 Tablet (of 40 mg) Tablet, enteric coated Oral daily, PreserVision AREDS 2 Tablet Oral daily, Senna S 1 - 2 Tablet (of 8.6-50 mg) Oral daily Allergies: Carfilzomib, Daratuzumab, EKG patches, Lisinopril, Pomalidomide, and revlimd. Vital Signs: Performed on Apr 22, 2020 09:05 Height - 66.00 in Weight - 147.4 lbs (LOW) BSA - 1.76 sq.m BMI - 23.79 Temperature - 99.2 F (HIGH) Pulse - 74 /min Respiration - 18 /min BP - 119/46 mm(hg) O2 Sat - 99 % Pain - 0 Fatigue - 5 Physical Examination: Constitutional - She appears generally weak, Eyes - Sclerae nonicteric. Conjunctivae clear, ENMT - No lesions noted in the oral cavity, Hematologic/Lymphatic - No cervical, clavicular, or axillary adenopathy, Respiratory - Lungs sound clear, Cardiovascular - Heart rhythm is irregular. The rate is controlled. There is a II/ systolic murmur. There is no gallop or rub noted, Abdomen - Soft. Liver and spleen are not enlarged. There is no abdominal mass or ascites noted and there is no inguinal adenopathy, Extremities - No edema. There are purpuric lesions on both arms, Neurologic - No focal neurologic deficits noted. Lab/Imaging: CBC shows hemoglobin 7.2 g, white blood cell count 4100, and platelet count 73,000. Comprehensive metabolic profile shows stable renal function with BUN 17 and creatinine 1.0 mg/dL. Calcium is mildly elevated but stable at 11.4 mg/dL. Problem List: 1. IgG kappa myeloma. Her bone marrow aspiration/biopsy on 10/27/2017 was hypercellular with 63% plasma cells. She had anemia, renal dysfunction, and symptomatic hypercalcemia at initial presentation. Her skeletal survey showed diffuse bone demineralization, but without evidence of any large osteolytic lesions. 2. Hypertension. 3. Type II diabetes. 4. Coronary artery disease requiring coronary angioplasty/stent placement. 5. Peripheral neuropathy. 6. Degenerative arthritis. 7. She has a history of nephrolithiasis. Problems Addressed with this Encounter and Plan: 1. IgG kappa myeloma. Her bone marrow aspiration/biopsy on 10/27/2017 was hypercellular with 63% plasma cells. She had anemia, renal dysfunction, and symptomatic hypercalcemia at initial presentation. Her skeletal survey showed diffuse bone demineralization, but without evidence of any large osteolytic lesions. She had some improvement on initial treatment with high-dose dexamethasone and zoledronic acid. On 11/16/2017 she began treatment with Velcade, Revlimid, and dexamethasone. She had a good response, though she had difficulty tolerating the Revlimid. As of March 2018 she completed 6 cycles of treatment. She was unable to tolerate Revlimid maintenance. She began 2nd line treatment with daratumumab in combination with carfilzomib and dexamethasone on 05/14/2019. It was complicated by acute respiratory distress/flash pulmonary edema. In August 2019 she began 3rd line treatment with pomalidomide in combination with ixazomib and dexamethasone. It was also tolerated poorly and stopped the following month. She began 4th line treatment with melphalan/prednisone in December 2019. She was able to tolerate it with acceptable toxicity, but without significant clinical improvement. During this time she continued to have transfusion dependent anemia and she also had recurrence of hypercalcemia and worsening of renal function. She was maintained with intermittent courses of high-dose dexamethasone and with infusions of sodium pamidronate. On 04/01/2020 she began 5th line treatment with belantamab mafodotin. She tolerated the initial infusion without acute toxicity, though she subsequently was given antibiotic therapy with Levaquin for suspected respiratory tract infection. She has since then shown some improvement clinically, though she continues to have marginal performance status. She continues to have transfusion dependent anemia, but her renal function and calcium levels have stabilized. She will continue now with cycle 2 of belantamab mafodotin. The dosage remains the same. The medication has high risk for toxicity, including ocular toxicity, and she does require close monitoring. This includes eye exams prior to each treatment. She will be scheduled for a follow-up visit here in 3 weeks. 2. She has transfusion dependent anemia. She will be transfused 2 units PRBC today. Her blood counts will be monitored weekly. She will be transfused again as needed. Signed By: Kris Muñoz M.D. <<Signature on File>>
== END 2020-04-26 23:59 | disposition home or self-care (01) ==
LOC: ONCMED 05:32
PROVIDERS: Nurse Practitioner; PCP Family Medicine; Visit Provider Internal Medicine Medical Oncology
DX: Z51.12 Encounter for antineoplastic immunotherapy (principal); C90.00 Multiple myeloma not having achieved remission; E11.42 Type 2 diabetes mellitus with diabetic polyneuropathy; I25.10 Atherosclerotic heart disease of native coronary artery without angina pectoris; D63.0 Anemia in neoplastic disease; Z79.899 Other long term (current) drug therapy
CPT/HCPCS: 36430; 80048; 85025; 86850; 86900; 86920; 96367; 96375; 96413; 99215; C9069; J1200; J1940; J2405; J7050; P9040

== ENCOUNTER 2020-05-27 10:51 | Outpatient (RCR) | payer MEDICARE, SELFPAY ==
[2020-04-28 16:03] LABS: Basophils % 0.3 %; Eosinophils % 0.6 %; Hematocrit 29.2 % (37.0-47.0); Lymphocytes # 1.5 10^3/uL (0.8-4.8); Lymphocytes % 43.4 %; Mean Corpuscular HGB Conc 30.8 g/dL (30.0-36.0); Mean Corpuscular Hemoglobin 29.8 pg (28.0-34.0); Mean Corpuscular Volume 96.7 fL (81-99); Mean Platelet Volume 11.9 fL (7.4-10.4); Monocytes # 0.8 10^3/uL (0.2-0.9); Monocytes % 22.3 %; Neutrophils # 1.14 10^3/uL (1.8-7.7); Nucleated Red Blood Cells % 0 %; Platelet Count 52 10^3/cmm (130-400); Red Blood Count 3.02 10^6/uL (4.1-5.3); Red Cell Distribution Width 21.3 % (12.1-15.1); White Blood Count 3.6 10^3/uL (4.0-10.0)
[2020-04-28 16:51] LABS: Blood Urea Nitrogen 17 mg/dL (8-23); Calcium 10.9 mg/dL (8.5-10.5); Carbon Dioxide 19 mmol/L (22-29); Chloride 105 mmol/L (98-107); Glucose 82 mg/dL (65-115); Osmolality Calculated 273 mOsm/kg (285-295); Sodium 131 mmol/L (136-145)
[2020-05-05 17:08] LABS: Basophils % 0.2 %; Eosinophils % 0.2 %; Hematocrit 25.7 % (37.0-47.0); Lymphocytes # 1.6 10^3/uL (0.8-4.8); Lymphocytes % 33.3 %; Mean Corpuscular HGB Conc 31.1 g/dL (30.0-36.0); Mean Corpuscular Hemoglobin 30.2 pg (28.0-34.0); Mean Platelet Volume 11.9 fL (7.4-10.4); Monocytes # 1.5 10^3/uL (0.2-0.9); Monocytes % 30.9 %; Neutrophils # 1.69 10^3/uL (1.8-7.7); Neutrophils % 34.4 %; Nucleated Red Blood Cells % 0.6 %; Platelet Count 45 10^3/cmm (130-400); Red Blood Count 2.65 10^6/uL (4.1-5.3); Red Cell Distribution Width 22.2 % (12.1-15.1); White Blood Count 4.9 10^3/uL (4.0-10.0)
[2020-05-05 17:22] LABS: Anion Gap 9.6 (5-19); Blood Urea Nitrogen 14 mg/dL (8-23); Calcium 11.8 mg/dL (8.5-10.5); Carbon Dioxide 21 mmol/L (22-29); Chloride 103 mmol/L (98-107); Glucose 105 mg/dL (65-115); Osmolality Calculated 271 mOsm/kg (285-295); Potassium 3.6 mmol/L (3.5-5.1); Sodium 130 mmol/L (136-145)
[2020-05-07] MEDS: diphenhydrAMINE 25 mg Capsule PO (09:20)
[2020-05-07] MEDS: sodium chloride 0.9% 250 ML 999 ML IV (09:25)
[2020-05-07] MEDS: acetaminophen 325 mg Tablet 650 MG PO (09:30)
[2020-05-07] MEDS: FUROsemide 10 mg/mL SDV 2mL 20 MG IV (11:25)
[2020-05-12 17:13] LABS: Basophils % 0.5 %; Eosinophils % 0.7 %; Hematocrit 31.9 % (37.0-47.0); Hemoglobin 9.9 g/dL (11.5-15.3); Lymphocytes # 2.6 10^3/uL (0.8-4.8); Lymphocytes % 44.8 %; Mean Corpuscular Hemoglobin 30.4 pg (28.0-34.0); Mean Corpuscular Volume 97.9 fL (81-99); Mean Platelet Volume 10.7 fL (7.4-10.4); Monocytes # 1.1 10^3/uL (0.2-0.9); Monocytes % 18.9 %; Neutrophils # 1.95 10^3/uL (1.8-7.7); Neutrophils % 34.1 %; Nucleated Red Blood Cells % 0.3 %; Platelet Count 62 10^3/cmm (130-400); Red Blood Count 3.26 10^6/uL (4.1-5.3); Red Cell Distribution Width 21.6 % (12.1-15.1); White Blood Count 5.7 10^3/uL (4.0-10.0)
[2020-05-12 17:34] LABS: Blood Urea Nitrogen 14 mg/dL (8-23); Calcium 11.9 mg/dL (8.5-10.5); Carbon Dioxide 23 mmol/L (22-29); Chloride 101 mmol/L (98-107); Glucose 82 mg/dL (65-115); Osmolality Calculated 272 mOsm/kg (285-295); Sodium 131 mmol/L (136-145)
[2020-05-12 17:58] LABS: Anion Gap 10.7 (5-19); Potassium 3.7 mmol/L (3.5-5.1)
[2020-05-13] MEDS: acetaminophen 325 mg Tablet 650 MG PO (12:28)
[2020-05-13] MEDS: sodium chloride 0.9% 250 ML 999 ML IV (12:30)
[2020-05-13] MEDS: ondansetron 2 mg/ML SDV 2 mL 8 MG IV (12:31)
[2020-05-13] MEDS: diphenhydrAMINE 50 mg/mL SDV 1mL 25 MG IV (12:35)
[2020-05-19 18:34] LABS: Basophils % 0.2 %; Eosinophils # 0.1 10^3/uL (0.0-0.8); Eosinophils % 1.3 %; Hematocrit 27.6 % (37.0-47.0); Hemoglobin 8.6 g/dL (11.5-15.3); Lymphocytes # 1.9 10^3/uL (0.8-4.8); Lymphocytes % 34.7 %; Mean Corpuscular HGB Conc 31.2 g/dL (30.0-36.0); Mean Corpuscular Hemoglobin 30.4 pg (28.0-34.0); Mean Corpuscular Volume 97.5 fL (81-99); Monocytes # 1.3 10^3/uL (0.2-0.9); Monocytes % 23.3 %; Neutrophils # 2.15 10^3/uL (1.8-7.7); Nucleated Red Blood Cells % 0.5 %; Platelet Count 61 10^3/cmm (130-400); Red Blood Count 2.83 10^6/uL (4.1-5.3); Red Cell Distribution Width 22.5 % (12.1-15.1); White Blood Count 5.5 10^3/uL (4.0-10.0)
[2020-05-19 20:48] LABS: Blood Urea Nitrogen 16 mg/dL (8-23); Carbon Dioxide 19 mmol/L (22-29); Chloride 101 mmol/L (98-107); Glucose 88 mg/dL (65-115); Osmolality Calculated 267 mOsm/kg (285-295); Sodium 128 mmol/L (136-145)
[2020-05-19 21:28] LABS: Anion Gap 12.1 (5-19); Potassium 4.1 mmol/L (3.5-5.1)
--- NOTE | 2020-05-23 15:19 | ONC FU_ITS ---
[facility] Patient Note Patient: Alta Red Unit #: [id number]: [id number] Dictated By: Otto SueDate of Visit: May 13, 2020 Onc MED Follow-Up/Prog Note Chief Complaint: Myeloma. History of Present Illness: Mrs Red is an 84 year-old woman with IgG kappa myeloma. She had presented to Dr. Nieto on 10/24/2017 with complaints of dizziness/lightheadedness, fatigue, and anorexia. She reported that at times she felt like passing out and having to lie down. She reported having problems with memory and she complained that she had been sleeping a lot. Her CBC showed low hemoglobin at 8.8 g, white blood cell count borderline at 4300 and platelet count mildly decreased at 103,000. Her comprehensive metabolic profile showed elevated BUN and creatinine at 23 and 1.42 mg/dL and significantly elevated serum calcium at 14.5 mg/dL with albumin low at 2.5 g/dL. The calculated serum globulin was significantly elevated at 7.9 g/dL. Bone marrow aspiration/biopsy on 10/27/2017 showed hypercellular marrow with 63% plasma cells, consistent with myeloma. At that time, she was given an infusion of sodium pamidronate for the hypercalcemia, and she also was given dexamethasone 40 mg daily for 4 days. Skeletal survey on 10/27/2017 showed evidence of diffuse bone demineralization but without evidence of large osteolytic lesion. Subcentimeter lucent foci in the femora bilaterally were felt to be consistent with osteoporosis, myelomatous lesions, or metastatic disease. Serum protein electrophoresis and 11/20/2017 showed IgG kappa paraprotein quantitating at 4.1 g/dL. The free light chain assay showed elevated free kappa light chain at 228.24 mg/L with elevated kappa/lambda ratio at 17.40. She returned on 11/16/2017 to begin treatment with Velcade/Revlimid/dexamethasone. It was opted to use a weekly Velcade regimen on a 21/28 day schedule. Due to her age and renal function, the Revlimid was initiated at a reduced dosage of 10 mg daily for 21 days. The dexamethasone was reduced to 20 mg weekly. At that time, her calcium had become elevated again at 10.3 mg/dL with albumin 2.2 g/dL. Her renal function had improved with creatinine down to 1.0 mg/dL. As such, she was given zoledronic acid 3.5 mg by IV infusion. On 11/20/2017 she came in with a 2-day history of fever and chills. A specific source of infection was not identified other than her chest x-ray was suspicious for possible pneumonia. She was treated empirically with Levaquin, I did opt to put her Revlimid on hold, as she also was having diarrhea at that point. Her follow-up CBC on 11/23/2017 showed further decline in hemoglobin to 6.4 g, and the following day she was transfused 2 units of PRBC. She did receive her day 8 Velcade, and she was able to return for day 15 Velcade on 11/29/2017. Hemoglobin at that point was adequate at 9.9 g. She then continued her 2nd cycle on 12/13/2017 with the Revlimid omitted. The Velcade was again administered weekly for 3 weeks, and the dexamethasone was changed to 20 mg twice weekly. A repeat protein electrophoresis on 12/25/2017 showed significant improvement with the M protein quantitating at 0.73 g/dL. She then continued with cycle 3 of Velcade/dexamethasone on 01/11/2018, with cycle 4 on 02/07/2018, with cycle 5 on 03/06/2018, and with cycle 6 on 04/04/2018. Her repeat serum protein electrophoresis on 05/01/2018 showed 2 monoclonal protein bands which together quantitated at 0.21 g/dL compared to 0.31 g/dL on 03/06/2018. The serum free light chain assay showed normal kappa light chain at 1.28 mg/dL and normal lambda light chain at 1.52 mg/dL with the kappa/lambda ratio normal at 0.8421. She was seen for a follow-up visit on 05/02/2018, and she then began maintenance Revlimid at 5 mg daily. As of 05/29/2018 the Revlimid was put on hold due to worsening skin eruption. The skin eruption had initially continued to worsen somewhat after stopping the Revlimid, but it then gradually resolved. Dr Muñoz had seen her for a follow-up visit on 07/17/2018. At that point she had only minimal residual M protein. She appeared stable clinically, and given the side effects she experienced with her treatment, it was opted to just follow her on observation/expectant management. As of March 2019 there was a significant increase in her M protein and in her kappa free light chain. She had become mildly anemic. It was clear at that point that her myeloma was progressing, and we opted to proceed to a trial of second line therapy with daratumumab in combination with carfilzomib and dexamethasone. She began her day 1 treatment on 05/14/2019, which she tolerated well. However, following her day 2 treatment she was admitted to the hospital with acute respiratory distress/flash pulmonary edema. Her clinical course was complicated by non-ST elevation myocardial infarction, acute renal injury, and thrombocytopenia. She did have a good recovery, and she was then followed on observation/expectant management. As of July 2019 her M protein had increased significantly, to 2.65 g/dL. At that point she had become mildly anemic, hemoglobin 10.4 g. Her renal function, though, remained normal with creatinine 0.78 mg/dL. Restaging PET/CT on 08/29/2019 was felt to be likely a negative examination with no evidence for osseous or soft tissue tumor involvement. There were findings which were felt to most likely reflect prominent arthritic changes. With the significant increase in her M protein, she started 3rd line treatment with pomalidomide in combination with ixazomib and dexamethasone, cycle 1 beginning on 09/13/2019. The pomalidomide was put on hold due to side effects, the most significant being fatigue, fever, and just not feeling good generally. As of her follow-up visit on 09/30/2019 the ixazomib was also put on hold. She then continued treatment with dexamethasone 20 mg [address] Muñoz had seen her for a follow-up visit on 10/15/2019. At that time she planning to undergo left total hip arthroplasty. The procedure had been scheduled for 10/30/2019. As such, Dr Muñoz had stopped her steroid therapy. However, her hip surgery ended up being canceled, because of anemia and hypercalcemia. Dr Muñoz had seen her for a follow-up visit on 11/19/2019. At that time, he had discussed the possibility of continuing further treatment either with melphalan/prednisone or with belantamab mafodotin-blmf. She was significantly anemic with hemoglobin 8.5 g. Renal function was still normal with creatinine 0.81 mg/dL, but calcium was significantly elevated at 12.3 mg/dL. She was given an infusion of sodium pamidronate. Her further clinical course was complicated by hospital admission for cardiac ischemia requiring angioplasty with stent placement to the LAD. She had to subsequent hospitalizations for congestive heart failure/pneumonia. She was discharged home on 12/22/2019. During that time, she was transfused on [address] Muñoz had seen her for a follow-up visit on 01/02/2020. Given her progression following VRd/maintenance Revlimid and poor tolerance for pomalidomide, carfilzomib, and daratumumab, she was offered a trial of therapy with melphalan/prednisone. She began cycle 1 on 01/16/2020. 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 She developed neutropenia and thrombocytopenia, neither of which was severe enough to require specific treatment. She also has had hypercalcemia which has persisted despite treatment with zoledronic acid and sodium pamidronate. Her medical illnesses, in addition to the myeloma, include hypertension, type II diabetes with peripheral neuropathy, coronary artery disease, and degenerative arthritis. She is a nonsmoker. INTERIM HISTORY: On 04/01/2020 she began cycle 1 of belantamab mafodotin. She tolerated the initial infusion without significant toxicity, but the following day she did run low-grade fever. She improved on empiric antibiotic therapy with Levaquin. During this time she had remained transfusion dependent. Her creatinine and calcium levels, though, had stabilized. She has completed 2 cycles of the belantamab mafodotin. Her last transfusion service was on 05/05/2020 which time she received 2 units of packed red blood cells. Mrs. Red is here today for follow-up. She states she is still doing well over. She states her biggest complaint is hip pain. She had been scheduled for hip replacement but that was delayed due to the myeloma and hypercalcemia. She states it was not for her hip she thinks it felt pretty good. She is also had some urinary incontinence and was read questing medication for that. She denies any fever or chills. She denies any new shortness of breath orthopnea. She denies any pain. She states her hip pain is about the same as always may be a little bit worse but no new pain elsewhere. She states her breathing is about the same for her. She denies any rash. She denies any diarrhea or constipation. She states that her vision is some what fuzzy at times but overall it is not changed. Her eye exams have been reported as no change from baseline per Dr. Paige. Her last eye exam was within the last 2 weeks. A copy is in the chart. Ms. Red's ECOG is 2. Past Medical History: Degenerative arthritis Hypertension Hypothyroidism Nephrolithiasis Peripheral neuropathy Type II diabetes Past Surgical History: Breast reduction Excision of Adler's neuroma x 3 Hysterectomy Left bunionectomy Lithotripsy for renal stones in 9 and in 1989 Tonsillectomy Flu shot in 2018 D&C in 2011 Hysterectomy without oophorectomy in 2011 Right total hip arthroplasty in 2011 Laparoscopic cholecystectomy in 1991 Breast reduction in 1983 Cholecystectomy in 1982 Thyroidectomy in 1959 Allergies: Carfilzomib, Daratuzumab, EKG patches, Lisinopril, Pomalidomide, and revlimd. Medications: Acetaminophen Tablet Oral PRN AmLODIPine Besylate 1 Tablet (of 10 mg) Oral every am Atorvastatin Calcium 1 Tablet (of 40 mg) Oral daily Clopidogrel Bisulfate 1 Tablet (of 75 mg) Oral daily Furosemide 1 Tablet (of 40 mg) Oral every am Isosorbide Mononitrate 1 Tablet (of 30 mg) Oral daily K-Tab 1 Tablet (of 20 meq) Tablet, controlled release Oral daily Levothyroxine Sodium 1 Tablet (of 125 mcg) Oral daily Metoprolol Succinate ER 1 Tablet (of 50 mg) Tablet SR 24 HR Oral b.i.d. Pantoprazole Sodium 1 Tablet (of 40 mg) Tablet, enteric coated Oral daily PreserVision AREDS 2 Tablet Oral daily Senna S 1 - 2 Tablet (of 8.6-50 mg) Oral daily Family History: Ms. Red's mother at age 83: congestive heart failure. Ms. Red's father is alive. Ms. Red has 1 brother who is alive. She has 2 sisters: 2 alive. Father is still living at age 103. Mother with congestive heart failure at age 83. She also had been treated for breast cancer, renal cell cancer, and uterine cancer. One brother and two sisters are in good health. Social History: Ms. Red is and she is retired. Ms. Red has never smoked. She is a nonsmoker. She does not drink alcohol. Review Of Symptoms: Constitutional Denies fevers, chills, night sweats, excessive fatigue. She states she has alot of fatigue but no worse than what it has been. Allergic/Immunologic No reactions. Eyes Denies significant visual changes. No diplopia. No amaurosis. ENMT Denies changes in hearing, sore throat, mouth sores, difficulty or changes in swallowing ability, and/or sinus drainage. Endocrine No diabetes, thyroid disease or hormone replacement. Denies hot flashes or night sweats. Hematologic/Lymphatic Denies easy bruising or bleeding. The patient denies any tender or palpable lymph nodes. Respiratory Persistent shortness of breath on exertion, but denies chest pain, cough or hemoptysis. Denies orthopnea. Cardiovascular Denies anginal chest pain, palpitations or orthopnea. Gastrointestinal Denies nausea, vomiting, diarrhea, GI bleeding, or constipation. Denies change in bowel habits and/or stool color, or early satiety. Genitourinary (F) No hematuria, hesitancy, incontinence, vaginal bleeding, discharge or other problems with urination. Musculoskeletal Denies joint pain, swelling or redness. No decreased range of motion. Integumentary Denies chronic rashes, inflammation, ulcerations or skin changes. Neurologic Denies headache, blurred vision, and no areas of focal weakness or numbness. Psychiatric Denies insomnia, depression, marylin or mood swings. Vital Signs: Performed on May 13, 2020 11:36 Height - 66.00 in Weight - 148.8 lbs (HIGH) BSA - 1.76 sq.m BMI - 24.02 Temperature - 97.4 F (LOW) Pulse - 73 /min Respiration - 18 /min BP - 138/55 mm(hg) O2 Sat - 98 % Pain - 0 Fatigue - 5,2 - Ambulatory/capable of all self-care, unable to perform any work activities. Up and about more than 50% of waking hours. (ECOG) Physical Examination: Constitutional Alert, oriented, no acute distress. Skin pale, warm and dry. No acute distress but obviously does not feel well. Head Normocephalic; atraumatic. Eyes Conjunctivae and sclerae are clear and without icterus. Pupils are reactive and equal. Hematologic/Lymphatic No petechiae or purpura. Respiratory Lungs are clear to auscultation without rhonchi or wheezing. Cardiovascular Regular rate and rhythm of heart without murmurs,clicks, gallops or rubs. Abdomen Non-tender, non-distended, no masses, ascites. Back/Spine Non-tender to palpation. Extremities No visible deformities, no cyanosis, clubbing or edema. Musculoskeletal No tenderness or swelling, normal range of motion without obvious weakness. Integumentary No rashes or lesions.-see above Neurologic No sensory or motor deficits, normal cerebellar function, in wheelchair today. Psychiatric Alert and oriented times three. Coherent speech. Verbalizes understanding of our discussions today. Laboratory:^See flow shett] Impression: 1. IgG kappa myeloma. Her bone marrow aspiration/biopsy on 10/27/2017 was hypercellular with 63% plasma cells. She had anemia, renal dysfunction, and symptomatic hypercalcemia at initial presentation. Her skeletal survey showed diffuse bone demineralization, but without evidence of any large osteolytic lesions. 2. Hypertension. 3. Type II diabetes. 4. Coronary artery disease requiring coronary angioplasty/stent placement. 5. Peripheral neuropathy. 6. Degenerative arthritis. 7. She has a history of nephrolithiasis. Plan: 1. IgG kappa myeloma. Her bone marrow aspiration/biopsy on 10/27/2017 was hypercellular with 63% plasma cells. She had anemia, renal dysfunction, and symptomatic hypercalcemia at initial presentation. Her skeletal survey showed diffuse bone demineralization, but without evidence of any large osteolytic lesions. She had some improvement on initial treatment with high-dose dexamethasone and zoledronic acid. On 11/16/2017 she began treatment with Velcade, Revlimid, and dexamethasone. She had a good response, though she had difficulty tolerating the Revlimid. As of March 2018 she completed 6 cycles of treatment. She was unable to tolerate Revlimid maintenance. She began 2nd line treatment with daratumumab in combination with carfilzomib and dexamethasone on 05/14/2019. It was complicated by acute respiratory distress/flash pulmonary edema. In August 2019 she began 3rd line treatment with pomalidomide in combination with ixazomib and dexamethasone. It was also tolerated poorly and stopped the following month. She began 4th line treatment with melphalan/prednisone in December 2019. She was able to tolerate it with acceptable toxicity, but without significant clinical improvement. During this time she continued to have transfusion dependent anemia and she also had recurrence of hypercalcemia and worsening of renal function. She was maintained with intermittent courses of high-dose dexamethasone and with infusions of sodium pamidronate. On 04/01/2020 she began 5th line treatment with belantamab mafodotin. She tolerated the initial infusion without acute toxicity, though she subsequently was given antibiotic therapy with Levaquin for suspected respiratory tract infection. She has since then shown some improvement in her performance status. She continues to have transfusion dependent anemia, but her renal function and calcium levels have stabilized. A. Proceed with cycle 3 belantamab mafodotn at same dosing. B. Labs from 05/12/2020 reviewed in detail and discussed with Ms. Red and her daughter and a copy was given to them. WBC 5.7, hemoglobin 9.9, platelets 62,000 ANC is 1950. Creatinine 0.9 calcium 11.9 random glucose 82 and potassium 3.7. Her kappa free light chain on 01/14/2020 was 404.5 and on 02/24/2020 it was 219.2. Her IgG on 01/14/2020 was 8316 and was 6949 on 02/24/2020. Her myeloma lab results from today are pending at time of visit. 2. She has transfusion dependent anemia. A. Her last transfusion was 2 units on 05/05/2020. B. Her blood counts will be monitored weekly. She will be transfused again as needed. 3. Urinary incontinence A. She denies any urinary frequency or hesitancy. She states she has had no symptoms of UTI. She could not give a UA while she was here today. B. We will have her try Ditropan for bladder control. 4. Follow-up plan A. She will have weekly CBC and a blood bank hold tube B. To return to Dr. Paige's office in 2 weeks for eye exam for the [place]. C. She will return for follow-up in 3 weeks with CBC CMP serum free light chain SPEP with Kayla Gruber. Ms. Red has been instructed to contact us in interim should questions or problems arise. Signed By: Otto Sue-GINNY, AOCNP Kris Muñoz MD <<Signature on File>>
[2020-05-26 15:41] LABS: Basophils % 0.2 %; Eosinophils # 0.1 10^3/uL (0.0-0.8); Hematocrit 23.3 % (37.0-47.0); Hemoglobin 7.1 g/dL (11.5-15.3); Lymphocytes # 1.5 10^3/uL (0.8-4.8); Lymphocytes % 30.9 %; Mean Corpuscular HGB Conc 30.5 g/dL (30.0-36.0); Mean Corpuscular Hemoglobin 31.1 pg (28.0-34.0); Mean Corpuscular Volume 102.2 fL (81-99); Mean Platelet Volume 11.2 fL (7.4-10.4); Monocytes # 1.4 10^3/uL (0.2-0.9); Monocytes % 27.7 %; Neutrophils # 1.94 10^3/uL (1.8-7.7); Neutrophils % 38.8 %; Nucleated Red Blood Cells % 0.6 %; Platelet Count 48 10^3/cmm (130-400); Red Blood Count 2.28 10^6/uL (4.1-5.3); Red Cell Distribution Width 23.6 % (12.1-15.1)
[2020-05-26 16:03] LABS: Blood Urea Nitrogen 19 mg/dL (8-23); Total Bilirubin 0.8 mg/dL (0.15-1.2)
[2020-05-26 21:14] LABS: Anion Gap 17.9 (5-19); Carbon Dioxide 15 mmol/L (22-29); Chloride 101 mmol/L (98-107); Osmolality Calculated 273 mOsm/kg (285-295); Potassium 3.9 mmol/L (3.5-5.1); Sodium 130 mmol/L (136-145)
[2020-05-26 21:15] LABS: Alanine Aminotransferase 42 U/L (0-33); Albumin Level 1.7 g/dL (3.5-5.2); Alkaline Phosphatase 134 IU/L (35-105); Aspartate Amino Transferase 137 U/L (0-32); Calcium 11.4 mg/dL (8.5-10.5); Globulin 8.6 g/dL (1.3-4.6); Total Protein 10.3 g/dL (6.6-8.7)
[2020-05-26 21:16] LABS: Glucose 104 mg/dL (65-115)
[2020-05-27] MEDS: acetaminophen 325 mg Tablet 650 MG PO (14:20)
[2020-05-27] MEDS: diphenhydrAMINE 25 mg Capsule PO (14:20)
[2020-05-27] MEDS: sodium chloride 0.9% 250 ML 999 ML IV (14:20)
[2020-05-27 14:30] VITALS: BP 129/54; PULSE 62; RESP 18; TEMP 37.2; O2SAT 98
[2020-05-27 14:45] VITALS: BP 133/56; PULSE 59; RESP 18; TEMP 36.8; O2SAT 98
[2020-05-27 15:00] VITALS: BP 128/54; PULSE 58; RESP 18; TEMP 36.6; O2SAT 97
[2020-05-27 16:00] VITALS: BP 130/50; PULSE 59; RESP 18; TEMP 36.6; O2SAT 97
[2020-05-27 16:30] VITALS: BP 126/61; PULSE 62; RESP 18; TEMP 36.8; O2SAT 98
[2020-05-28 13:30] VITALS: BP 116/57; PULSE 66; RESP 18; TEMP 37.3; O2SAT 98
[2020-05-28 13:45] VITALS: BP 114/58; PULSE 68; RESP 18; TEMP 37.3; O2SAT 98
[2020-05-28 14:00] VITALS: BP 117/59; PULSE 72; RESP 18; TEMP 37.3; O2SAT 98
[2020-05-28 15:00] VITALS: BP 118/61; PULSE 74; RESP 18; TEMP 37.3; O2SAT 97
[2020-05-28 15:25] VITALS: BP 122/59; PULSE 78; RESP 18; TEMP 37.3; O2SAT 98
== END 2020-05-27 14:35 | disposition home or self-care (01) ==
LOC: ONCMED 10:51
PROVIDERS: Nurse Practitioner; PCP Family Medicine; Visit Provider Internal Medicine Medical Oncology
DX: Z51.12 Encounter for antineoplastic immunotherapy (principal); C90.00 Multiple myeloma not having achieved remission; D63.0 Anemia in neoplastic disease; R32 Unspecified urinary incontinence; Z51.81 Encounter for therapeutic drug level monitoring; Z79.899 Other long term (current) drug therapy
CPT/HCPCS: 36415; 36430; 80048; 80053; 85025; 86850; 86900; 86920; 96375; 96413; 99214; C9069; J1200; J1940; J2405; J7050; P9016

== ENCOUNTER 2020-06-23 15:22 | Outpatient (RCR) | payer MEDICARE, SELFPAY ==
[2020-05-28] MEDS: diphenhydrAMINE 25 mg Capsule PO (13:25)
[2020-05-28] MEDS: acetaminophen 325 mg Tablet 650 MG PO (13:25)
[2020-05-28] MEDS: sodium chloride 0.9% 250 ML 999 ML IV (13:25)
[2020-06-02 19:05] LABS: Basophils % 0.2 %; Eosinophils # 0.1 10^3/uL (0.0-0.8); Eosinophils % 0.9 %; Hematocrit 25.9 % (37.0-47.0); Hemoglobin 8.1 g/dL (11.5-15.3); Lymphocytes # 2.3 10^3/uL (0.8-4.8); Mean Corpuscular HGB Conc 31.3 g/dL (30.0-36.0); Mean Corpuscular Hemoglobin 31.4 pg (28.0-34.0); Mean Corpuscular Volume 100.4 fL (81-99); Mean Platelet Volume 11.1 fL (7.4-10.4); Monocytes # 1.3 10^3/uL (0.2-0.9); Monocytes % 23.7 %; Neutrophils % 32.5 %; Nucleated Red Blood Cells % 0.4 %; Platelet Count 62 10^3/cmm (130-400); Red Blood Count 2.58 10^6/uL (4.1-5.3); Red Cell Distribution Width 22.7 % (12.1-15.1); White Blood Count 5.5 10^3/uL (4.0-10.0)
[2020-06-02 19:24] LABS: Anion Gap 12.4 (5-19); Blood Urea Nitrogen 18 mg/dL (8-23); Calcium 11.2 mg/dL (8.5-10.5); Carbon Dioxide 22 mmol/L (22-29); Chloride 105 mmol/L (98-107); Glucose 88 mg/dL (65-115); Osmolality Calculated 281 mOsm/kg (285-295); Potassium 4.4 mmol/L (3.5-5.1); Sodium 135 mmol/L (136-145)
[2020-06-02 20:16] LABS: Estmated Average Glucose 114; Hemoglobin A1C 5.6 % (4.0-6.0)
[2020-06-03] VITALS (10 sets, daily range): BP systolic 120–144; BP diastolic 49–65; PULSE 67–75; RESP 16; TEMP 36.1–37.2; O2SAT 94–99
[2020-06-03] MEDS: sodium chloride 0.9% 250 ML 999 ML IV (10:30)
[2020-06-03] MEDS: diphenhydrAMINE 25 mg Capsule PO (10:30)
[2020-06-03] MEDS: acetaminophen 325 mg Tablet 650 MG PO (10:30)
[2020-06-03 11:21] LABS: Immunoglobulin IGA < 50 mg/dL (70-400); Immunoglobulin IGG 7111 mg/dL (700-1600); Immunoglobulin IGM < 25 mg/dL (40-230)
[2020-06-03] MEDS: FUROsemide 10 mg/mL SDV 2mL 40 MG IV (12:40)
[2020-06-04 08:17] LABS: PROTEIN, TOTAL 9.4 g/dL (6.1-8.1)
[2020-06-04 15:12] LABS: KAPPA/LAMBDA LIGHT CHAINS FREE 242.35 (0.26-1.65); LAMBDA LIGHT CHAIN, FREE, SERU 1.7 mg/L (5.7-26.3)
--- NOTE | 2020-06-06 14:53 | ONC FU_ITS ---
Dr. Muñoz Patient Follow-Up Note Patient: [facility] #: [id number]: 1935 Dicatated By: Kris Muñoz M.D.Date of Visit:Jun 03, 2020 Onc Med Follow-up/Prog Note Chief Complaint: Myeloma. History of Present Illness: This is an 84 year-old woman with IgG kappa myeloma. She had presented to Dr. Nieto on 10/24/2017 with complaints of dizziness/lightheadedness, fatigue, and anorexia. She reported that at times she felt like passing out and having to lie down. She reported having problems with memory and she complained that she had been sleeping a lot. Her CBC showed low hemoglobin at 8.8 g, white blood cell count borderline at 4300 and platelet count mildly decreased at 103,000. Her comprehensive metabolic profile showed elevated BUN and creatinine at 23 and 1.42 mg/dL and significantly elevated serum calcium at 14.5 mg/dL with albumin low at 2.5 g/dL. The calculated serum globulin was significantly elevated at 7.9 g/dL. Bone marrow aspiration/biopsy on 10/27/2017 showed hypercellular marrow with 63% plasma cells, consistent with myeloma. At that time, she was given an infusion of sodium pamidronate for the hypercalcemia, and she also was given dexamethasone 40 mg daily for 4 days. Skeletal survey on 10/27/2017 showed evidence of diffuse bone demineralization but without evidence of large osteolytic lesion. Subcentimeter lucent foci in the femora bilaterally were felt to be consistent with osteoporosis, myelomatous lesions, or metastatic disease. Serum protein electrophoresis and 11/20/2017 showed IgG kappa paraprotein quantitating at 4.1 g/dL. The free light chain assay showed elevated free kappa light chain at 228.24 mg/L with elevated kappa/lambda ratio at 17.40. She returned on 11/16/2017 to begin treatment with Velcade/Revlimid/dexamethasone. I opted to use a weekly Velcade regimen on a 21/28 day schedule. Due to her age and renal function, the Revlimid was initiated at a reduced dosage of 10 mg daily for 21 days. The dexamethasone was reduced to 20 mg weekly. At that time, her calcium had become elevated again at 10.3 mg/dL with albumin 2.2 g/dL. Her renal function had improved with creatinine down to 1.0 mg/dL. As such, she was given zoledronic acid 3.5 mg by IV infusion. On 11/20/2017 she came in with a 2-day history of fever and chills. A specific source of infection was not identified other than her chest x-ray was suspicious for possible pneumonia. She was treated empirically with Levaquin, I did opt to put her Revlimid on hold, as she also was having diarrhea at that point. Her follow-up CBC on 11/23/2017 showed further decline in hemoglobin to 6.4 g, and the following day she was transfused 2 units of PRBC. She did receive her day 8 Velcade, and she was able to return for day 15 Velcade on 11/29/2017. Hemoglobin at that point was adequate at 9.9 g. She then continued her 2nd cycle on 12/13/2017 with the Revlimid omitted. The Velcade was again administered weekly for 3 weeks, and the dexamethasone was changed to 20 mg twice weekly. A repeat protein electrophoresis on 12/25/2017 showed significant improvement with the M protein quantitating at 0.73 g/dL. She then continued with cycle 3 of Velcade/dexamethasone on 01/11/2018, with cycle 4 on 02/07/2018, with cycle 5 on 03/06/2018, and with cycle 6 on 04/04/2018. Her repeat serum protein electrophoresis on 05/01/2018 showed 2 monoclonal protein bands which together quantitated at 0.21 g/dL compared to 0.31 g/dL on 03/06/2018. The serum free light chain assay showed normal kappa light chain at 1.28 mg/dL and normal lambda light chain at 1.52 mg/dL with the kappa/lambda ratio normal at 0.8421. She was seen for a follow-up visit on 05/02/2018, and she then began maintenance Revlimid at 5 mg daily. As of 05/29/2018 the Revlimid was put on hold due to worsening skin eruption. The skin eruption had initially continued to worsen somewhat after stopping the Revlimid, but it then gradually resolved. I had seen her for a follow-up visit on 07/17/2018. At that point she had only minimal residual M protein. She appeared stable clinically, and given the side effects she experienced with her treatment, I opted to just follow her on observation/expectant management. As of March 2019 there was a significant increase in her M protein and in her kappa free light chain. She had become mildly anemic. It was clear at that point that her myeloma was progressing, and we opted to proceed to a trial of second line therapy with daratumumab in combination with carfilzomib and dexamethasone. She began her day 1 treatment on 05/14/2019, which she tolerated well. However, following her day 2 treatment she was admitted to the hospital with acute respiratory distress/flash pulmonary edema. Her clinical course was complicated by non-ST elevation myocardial infarction, acute renal injury, and thrombocytopenia. She did have a good recovery, and she was then followed on observation/expectant management. As of July 2019 her M protein had increased significantly, to 2.65 g/dL. At that point she had become mildly anemic, hemoglobin 10.4 g. Her renal function, though, remained normal with creatinine 0.78 mg/dL. Restaging PET/CT on 08/29/2019 was felt to be likely a negative examination with no evidence for osseous or soft tissue tumor involvement. There were findings which were felt to most likely reflect prominent arthritic changes. With the significant increase in her M protein, she started 3rd line treatment with pomalidomide in combination with ixazomib and dexamethasone, cycle 1 beginning on 09/13/2019. The pomalidomide was put on hold due to side effects, the most significant being fatigue, fever, and just not feeling good generally. As of her follow-up visit on 09/30/2019 the ixazomib was also put on hold. She then continued treatment with dexamethasone 20 mg 4 days a week. I had seen her for a follow-up visit on 10/15/2019. At that time she planning to undergo left total hip arthroplasty. The procedure had been scheduled for 10/30/2019. As such, I had stopped her steroid therapy. However, her hip surgery ended up being canceled, because of anemia and hypercalcemia. I had seen her for a follow-up visit on 11/19/2019. At that time I had discussed the possibility of continuing further treatment either with melphalan/prednisone or with belantamab [id number]. She was significantly anemic with hemoglobin 8.5 g. Renal function was still normal with creatinine 0.81 mg/dL, but calcium was significantly elevated at 12.3 mg/dL. She was given an infusion of sodium pamidronate. Her further clinical course was complicated by hospital admission for cardiac ischemia requiring angioplasty with stent placement to the LAD. She had to subsequent hospitalizations for congestive heart failure/pneumonia. She was discharged home on 12/22/2019. During that time, she was transfused on 2 different occasions. I had seen her for a follow-up visit on 01/02/2020. Given her progression following VRd/maintenance Revlimid and poor tolerance for pomalidomide, carfilzomib, and daratumumab, I had recommended a trial of therapy with melphalan/prednisone. She began cycle 1 on 01/16/2020. 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 She developed neutropenia and thrombocytopenia, neither of which was severe enough to require specific treatment. She also had hypercalcemia which had persisted despite treatment with zoledronic acid and sodium pamidronate. Her repeat protein electrophoresis on 02/24/2020 showed significant increase in the M protein to 7.4 g/dL. With that finding, she was recommended to proceed with a trial of salvage therapy with belantamab mafodotin. Her medical illnesses, in addition to the myeloma, include hypertension, type II diabetes with peripheral neuropathy, coronary artery disease, and degenerative arthritis. She is a nonsmoker. INTERIM HISTORY: On 04/01/2020 she began cycle 1 of belantamab mafodotin. She tolerated the initial infusion without significant toxicity, but the following day she did run low-grade fever. She improved on empiric antibiotic therapy with Levaquin. During this time she had remained transfusion dependent. Her creatinine and calcium levels, though, had stabilized. She continued with cycle 2 on 04/22/2020 and with cycle 3 on 05/13/2020. She is seen for a follow-up visit. She has basically been feeling wiped out. She says she just has not been able to bounce back from her last treatment. She has very minimal activity. ECOG score is 3. She has not been eating very well. She does not have fever or night sweats. She complains of dry mouth. She has had no visual problems, though. She has a hacking cough. She does not complain of shortness of breath or chest pain. She had 1 recent episode of nausea. Bowel function has been pretty good. She has urinary frequency and nocturia. She has now developed some swelling in her ankles. She has pain in her hips and knees which keeps getting worse and worse. She does not complain of headache. She sometimes feels woozy. She has no numbness/paresthesia or other focal neurologic symptoms. Medications: Acetaminophen Tablet Oral PRN, ALPRAZolam 1 Tablet (of 0.5 mg) Oral at bedtime PRN, AmLODIPine Besylate 1 Tablet (of 10 mg) Oral every am, Atorvastatin Calcium 1 Tablet (of 40 mg) Oral daily, Clopidogrel Bisulfate 1 Tablet (of 75 mg) Oral daily, Furosemide 1 Tablet (of 40 mg) Oral every am, Isosorbide Mononitrate 1 Tablet (of 30 mg) Oral daily, K-Tab 1 Tablet (of 20 meq) Tablet, controlled release Oral daily, Levothyroxine Sodium 1 Tablet (of 125 mcg) Oral daily, Metoprolol Succinate ER 1 Tablet (of 50 mg) Tablet SR 24 HR Oral b.i.d., Pantoprazole Sodium 1 Tablet (of 40 mg) Tablet, enteric coated Oral daily, PreserVision AREDS 2 Tablet Oral daily, Senna S 1 - 2 Tablet (of 8.6-50 mg) Oral daily Allergies: Carfilzomib, Daratuzumab, EKG patches, Lisinopril, Pomalidomide, and revlimd. Vital Signs: Performed on Jun 03, 2020 09:09 Height - 66.00 in Weight - 154.2 lbs (HIGH) BSA - 1.79 sq.m BMI - 24.89 Temperature - 99.4 F (HIGH) Pulse - 69 /min Respiration - 18 /min BP - 126/56 mm(hg) O2 Sat - 98 % Pain - 3 Fatigue - 9 Physical Examination: Constitutional - She appears generally weak, Eyes - Sclerae nonicteric. Conjunctivae clear, ENMT - No lesions noted in the oral cavity, Hematologic/Lymphatic - No cervical, clavicular, or axillary adenopathy, Respiratory - Lungs sound clear, Cardiovascular - Heart rhythm is irregular. There is a II/ systolic murmur. There is no gallop or rub noted, Abdomen - Soft. Liver and spleen are not enlarged. There is no abdominal mass or ascites noted and there is no inguinal adenopathy, Extremities - Mild edema. There are scattered purpuric lesions on both arms, Neurologic - No focal neurologic deficits noted. Lab/Imaging: Test performed on May 26, 2020 14:35 Sodium 130 mmol/L Potassium 3.9 mmol/L Chloride 101 mmol/L CO2 15 mmol/L Anion Gap 17.9 BUN 19 mg/dL Creatinine 0.8 mg/dL Cr Clearance (Est) 57.9200 mL/min Glucose 104 mg/dL Osmolality - Calculated 273 mOsm/kg Calcium 11.4 mg/dL Protein, Total 10.3 g/dL Albumin 1.7 g/dL Globulin 8.6 g/dL Bilirubin, Total 0.8 mg/dL ALT (SGPT) 42 U/L AST (SGOT) 137 U/L Alkaline Phosphatase 134 IU/L Leukocyte Reduced RBC [id number] BN RCLR XM COMPATIBLE WBC 5.0 10 3/uL RBC 2.28 10 6/uL HGB 7.1 g/dL HCT 23.3 % MCV 102.2 fL MCH 31.1 pg MCHC 30.5 g/dL RDW 23.6 % Platelet Count 48 10 3/cmm MPV 11.2 fL Neutrophils 1.94 10 3/uL Lymphocytes 1.5 10 3/uL Monocytes 1.4 10 3/uL Eosinophils 0.1 10 3/uL Basophils 0.0 10 3/uL Neutrophil % 38.8 % Lymphocyte % 30.9 % Monocyte % 27.7 % Eosinophil % 1.0 % Basophils % 0.2 % NRBC % 0.6 % Anti-D Negative / 0 Blood Type BN Antibody Screen (Gel) NEGATIVE Test performed on May 05, 2020 14:07 ABO & Rh Type # 2 BN Test performed on Apr 21, 2020 14:59 Irradiated Red Blood Cells [id number] ON RCI XM COMPATIBLE Test performed on Apr 08, 2020 13:54 Manual Lymphocytes 28 % Manual Monocytes 15 % Manual Eosinophils 0 % Manual Basophils 0 % Test performed on Feb 03, 2020 10:13 CBC Slide Review Slide Review Perform SLIDE REVIEW AGREES WITH AUTOMATED RESULTS/MISAEL Test performed on Dec 17, 2019 13:25 T3, Free 1.4 PG/ML T4, Free 2.40 ng/dL TSH 0.53 uIU/mL Problem List: 1. IgG kappa myeloma. Her bone marrow aspiration/biopsy on 10/27/2017 was hypercellular with 63% plasma cells. She had anemia, renal dysfunction, and symptomatic hypercalcemia at initial presentation. Her skeletal survey showed diffuse bone demineralization, but without evidence of any large osteolytic lesions. 2. Hypertension. 3. Type II diabetes. 4. Coronary artery disease requiring coronary angioplasty/stent placement. 5. Peripheral neuropathy. 6. Degenerative arthritis. 7. She has a history of nephrolithiasis. Problems Addressed with this Encounter and Plan: 1. IgG kappa myeloma. Her bone marrow aspiration/biopsy on 10/27/2017 was hypercellular with 63% plasma cells. She had anemia, renal dysfunction, and symptomatic hypercalcemia at initial presentation. Her skeletal survey showed diffuse bone demineralization, but without evidence of any large osteolytic lesions. She had some improvement on initial treatment with high-dose dexamethasone and zoledronic acid. On 11/16/2017 she began treatment with Velcade, Revlimid, and dexamethasone. She had a good response, though she had difficulty tolerating the Revlimid. As of March 2018 she completed 6 cycles of treatment. She was unable to tolerate Revlimid maintenance. She began 2nd line treatment with daratumumab in combination with carfilzomib and dexamethasone on 05/14/2019. It was complicated by acute respiratory distress/flash pulmonary edema. In August 2019 she began 3rd line treatment with pomalidomide in combination with ixazomib and dexamethasone. It was also tolerated poorly and stopped the following month. She began 4th line treatment with melphalan/prednisone in December 2019. She was able to tolerate it with acceptable toxicity, but without significant clinical improvement. During this time she continued to have transfusion dependent anemia and she also had recurrence of hypercalcemia and worsening of renal function. She was maintained with intermittent courses of high-dose dexamethasone and with infusions of sodium pamidronate. On 04/01/2020 she began 5th line treatment with belantamab mafodotin. She tolerated the initial infusion without acute toxicity, though she subsequently was given antibiotic therapy with Levaquin for suspected respiratory tract infection. She then continued with cycle 2 on 04/22/2020 and with cycle 3 on 05/13/2020. During this time she has had further decline in her energy/activity tolerance. Her renal function has remained stable. Her serum calcium remains mildly elevated, but also stable. As her current approach electrophoresis studies are pending, it is uncertain to what extent she may or may not be responding to the belantamab mafodotin. However, as her performance status appears to be declining, I am going to put her treatment on hold. If she is not showing a significant response, she will need to change treatment or consider transitioning to hospice. One option would be to go back to a trial of therapy with daratumumab, but with subcutaneous administration. 2. She has transfusion dependent anemia. Has her hemoglobin is back down to 8.1 g and she is significantly symptomatic, she will be transfused 2 units PRBC today. Signed By: Kris Muñoz M.D. <<Signature on File>>
[2020-06-08 15:58] LABS: ABNORMAL PROTEIN BAND 1 5.8 g/dL (NONE DETECTED); ALBUMIN 2.3 g/dL (3.8-4.8); ALPHA 1 GLOBULIN 0.3 g/dL (0.2-0.3); ALPHA 2 GLOBULIN 0.5 g/dL (0.5-0.9); BETA 1 GLOBULIN 0.3 g/dL (0.4-0.6); BETA 2 GLOBULIN 0.3 g/dL (0.2-0.5); GAMMA GLOBULIN 5.8 g/dL (0.8-1.7)
[2020-06-09 18:53] LABS: Basophils % 0.2 %; Eosinophils # 0.1 10^3/uL (0.0-0.8); Eosinophils % 2.1 %; Hematocrit 30.7 % (37.0-47.0); Hemoglobin 9.3 g/dL (11.5-15.3); Lymphocytes % 42.1 %; Mean Corpuscular HGB Conc 30.3 g/dL (30.0-36.0); Mean Corpuscular Hemoglobin 30.7 pg (28.0-34.0); Mean Corpuscular Volume 101.3 fL (81-99); Mean Platelet Volume 10.6 fL (7.4-10.4); Monocytes # 0.9 10^3/uL (0.2-0.9); Monocytes % 19.5 %; Neutrophils % 35.5 %; Nucleated Red Blood Cells % 0 %; Platelet Count 64 10^3/cmm (130-400); Red Blood Count 3.03 10^6/uL (4.1-5.3); Red Cell Distribution Width 22.2 % (12.1-15.1); White Blood Count 4.8 10^3/uL (4.0-10.0)
[2020-06-09 19:32] LABS: Blood Urea Nitrogen 18 mg/dL (8-23); Calcium 10.1 mg/dL (8.5-10.5); Carbon Dioxide 20 mmol/L (22-29); Chloride 105 mmol/L (98-107); Glucose 92 mg/dL (65-115); Osmolality Calculated 276 mOsm/kg (285-295); Sodium 132 mmol/L (136-145)
[2020-06-16 18:07] LABS: Basophils % 0.4 %; Eosinophils % 0.7 %; Hematocrit 28.6 % (37.0-47.0); Hemoglobin 8.7 g/dL (11.5-15.3); Lymphocytes # 2.5 10^3/uL (0.8-4.8); Mean Corpuscular HGB Conc 30.4 g/dL (30.0-36.0); Mean Corpuscular Hemoglobin 31.9 pg (28.0-34.0); Mean Corpuscular Volume 104.8 fL (81-99); Mean Platelet Volume 10.7 fL (7.4-10.4); Monocytes # 0.9 10^3/uL (0.2-0.9); Monocytes % 16.2 %; Neutrophils # 1.93 10^3/uL (1.8-7.7); Nucleated Red Blood Cells % 0 %; Platelet Count 75 10^3/cmm (130-400); Red Blood Count 2.73 10^6/uL (4.1-5.3); Red Cell Distribution Width 22.8 % (12.1-15.1); White Blood Count 5.4 10^3/uL (4.0-10.0)
[2020-06-16 18:39] LABS: Anion Gap 10.1 (5-19); Blood Urea Nitrogen 13 mg/dL (8-23); Carbon Dioxide 23 mmol/L (22-29); Chloride 102 mmol/L (98-107); Glucose 95 mg/dL (65-115); Osmolality Calculated 272 mOsm/kg (285-295); Potassium 4.1 mmol/L (3.5-5.1); Sodium 131 mmol/L (136-145)
[2020-06-23 16:44] LABS: Anion Gap 10.9 (5-19); Blood Urea Nitrogen 16 mg/dL (8-23); Calcium 10.1 mg/dL (8.5-10.5); Carbon Dioxide 23 mmol/L (22-29); Chloride 104 mmol/L (98-107); Glucose 105 mg/dL (65-115); Osmolality Calculated 280 mOsm/kg (285-295); Potassium 3.9 mmol/L (3.5-5.1); Sodium 134 mmol/L (136-145)
[2020-06-23 16:51] LABS: Basophils % 0.4 %; Eosinophils # 0.1 10^3/uL (0.0-0.8); Eosinophils % 1.2 %; Hematocrit 25.2 % (37.0-47.0); Hemoglobin 7.7 g/dL (11.5-15.3); Lymphocytes # 2.5 10^3/uL (0.8-4.8); Lymphocytes % 48.3 %; Mean Corpuscular HGB Conc 30.6 g/dL (30.0-36.0); Mean Corpuscular Hemoglobin 32.8 pg (28.0-34.0); Mean Corpuscular Volume 107.2 fL (81-99); Mean Platelet Volume 11.4 fL (7.4-10.4); Monocytes # 0.9 10^3/uL (0.2-0.9); Monocytes % 18.5 %; Neutrophils # 1.59 10^3/uL (1.8-7.7); Neutrophils % 31.4 %; Nucleated Red Blood Cells % 0 %; Platelet Count 69 10^3/cmm (130-400); Red Blood Count 2.35 10^6/uL (4.1-5.3); Red Cell Distribution Width 24.8 % (12.1-15.1); White Blood Count 5.1 10^3/uL (4.0-10.0)
== END 2020-06-26 23:59 | disposition home or self-care (01) ==
LOC: ONCMED 15:22
PROVIDERS: PCP Family Medicine; Visit Provider Internal Medicine Medical Oncology
DX: C90.00 Multiple myeloma not having achieved remission (principal); D64.9 Anemia, unspecified; E83.52 Hypercalcemia; I10 Essential (primary) hypertension; E11.59 Type 2 diabetes mellitus with other circulatory complications; I25.10 Atherosclerotic heart disease of native coronary artery without angina pectoris; Z95.5 Presence of coronary angioplasty implant and graft; E11.42 Type 2 diabetes mellitus with diabetic polyneuropathy; M19.90 Unspecified osteoarthritis, unspecified site; N20.0 Calculus of kidney; Z79.899 Other long term (current) drug therapy
CPT/HCPCS: 36430; 80048; 82784; 83036; 83883; 84155; 84165; 85025; 86850; 86900; 86920; 99214; J1940; J7050; P9016

== ENCOUNTER 2020-07-01 07:29 | Outpatient (RCR) | payer MEDICARE, SELFPAY ==
[2020-06-30 15:41] LABS: Basophils % 0.2 %; Eosinophils # 0.1 10^3/uL (0.0-0.8); Eosinophils % 1.4 %; Hemoglobin 7.3 g/dL (11.5-15.3); Lymphocytes % 45.9 %; Mean Corpuscular HGB Conc 30.4 g/dL (30.0-36.0); Mean Corpuscular Hemoglobin 33.5 pg (28.0-34.0); Mean Corpuscular Volume 110.1 fL (81-99); Mean Platelet Volume 11.8 fL (7.4-10.4); Monocytes # 0.8 10^3/uL (0.2-0.9); Monocytes % 18.6 %; Neutrophils # 1.45 10^3/uL (1.8-7.7); Neutrophils % 33.7 %; Nucleated Red Blood Cells % 0 %; Platelet Count 61 10^3/cmm (130-400); Red Blood Count 2.18 10^6/uL (4.1-5.3); Red Cell Distribution Width 25.3 % (12.1-15.1); White Blood Count 4.3 10^3/uL (4.0-10.0)
[2020-06-30 16:29] LABS: Anion Gap 11.1 (5-19); Blood Urea Nitrogen 15 mg/dL (8-23); Calcium 10.8 mg/dL (8.5-10.5); Carbon Dioxide 23 mmol/L (22-29); Chloride 103 mmol/L (98-107); Glucose 100 mg/dL (65-115); Osmolality Calculated 277 mOsm/kg (285-295); Potassium 4.1 mmol/L (3.5-5.1); Sodium 133 mmol/L (136-145)
[2020-07-01] VITALS (11 sets, daily range): BP systolic 117–146; BP diastolic 45–75; PULSE 58–73; RESP 16–17; TEMP 36.9–37.3; O2SAT 94–99
[2020-07-01] MEDS: sodium chloride 0.9% 250 ML 45 ML IV (09:45)
[2020-07-01] MEDS: diphenhydrAMINE 25 mg Capsule PO (09:45)
[2020-07-01] MEDS: acetaminophen 325 mg Tablet 650 MG PO (09:45)
== END 2020-07-06 08:00 | disposition home or self-care (01) ==
LOC: ONCMED 07:29
PROVIDERS: PCP Family Medicine; Visit Provider Internal Medicine Medical Oncology
DX: C90.00 Multiple myeloma not having achieved remission (principal); E83.52 Hypercalcemia; D64.9 Anemia, unspecified; Z79.899 Other long term (current) drug therapy
CPT/HCPCS: 36430; 80048; 85025; 86850; 86900; 86920; J2704; J3010; J7050; P9040

== ENCOUNTER → 2020-07-03 09:28 | Outpatient (BNVA) | payer MEDICARE, SELFPAY | PROVIDERS: PCP Family Medicine; Visit Provider Surgery | DX: Z01.812 Encounter for preprocedural laboratory examination (principal); Z20.822 Contact with and (suspected) exposure to COVID-19 | CPT/HCPCS: 87635 ==

== ENCOUNTER 2020-07-06 11:19 | Day surgery (SDC) | payer MEDICARE, SELFPAY ==
[2020-07-03 14:03] VITALS: BMI 24.1
--- NOTE | 2020-07-06 | SCC_ITS ---
Procedure Done: 1. Placement of PowerPort in the left subclavian vein 2. Fluoroscopic guidance and interpretation for placement of catheter 27.8 seconds of fluoroscopic guidance, for a cumulative dose of 3.57 mGy, was provided to Dr. Bower by the radiology department. C-arm images of the chest were saved for the patient's permanent record. [facility]
[2020-07-06 11:43] VITALS: BP 137/51; PULSE 88; RESP 18; TEMP 37.2; O2SAT 98
[2020-07-06] MEDS: sodium chloride 0.9% 1,000 ML 30 ML IV (12:19)
--- NOTE | 2020-07-06 12:21 | ANES.PREANE2 ---
Pre-Anesthetic Assessment Pre-Anesthetic Assessment: Height/Weight: Height 1.65 m Weight 65.771 kg Temp Pulse Resp BP Pulse Ox 99.0 F 88 18 137/51 98 07/06/20 11:43 07/06/20 11:43 07/06/20 11:43 07/06/20 11:43 07/06/20 11:43 Preop Diagnosis: Multiple myeloma Proposed Procedure: Operation Date: 07/06/20 13:05 Proposed Procedures p Portacath Placement 11232 c90.00(Not Applicable) - Josh Bower MD Familial anesthetic complications: None Was Beta Jonathan taken within 24 hours: N/A Was Clonidine taken within 24 hours: N/A Last intake: Intake Last Liquid Date 07/05/20 Last Solid Date 07/05/20 Social: Social History: No alcohol and No tobacco Exam: Pre-Anes Outpt Exam: alert, oriented x 3, clear to auscultation bilaterally and regular rate & rhythm Airway: Cervical ROM: WNL MP: 3 Dentition: False CV/HEM: CV/HEM: Anemia, CAD (PCI to LAD in 2019 NTEMI), CHF and HTN GI: GI: GERD Metabolic: Metabolic: DM and Thyroid Anesthetic Plan: ASA status: 4 Anesthesia: MAC Risk of > 500 ml blood loss (7ml/kg in children): No Meds/Allergies Current Medications: Current Medications Generic Name Dose Route Start Last Admin Trade Name Freq PRN Reason Stop Dose Admin Sodium Chloride 1,000 mls @ 30 ml s/hr 07/06/20 12:00 07/06/20 12:19 Sodium Chloride 0.9% IV 30 mls/hr .Q24H SAÚL Administration PFSH Anesthesia PFSH: Medical History Acute diastolic heart failure Compensated currently Anemia Arthritis Benign essential hypertension with target blood pressure below 140/90 Improved Diabetes Dyslipidemia Elevated troponin Heart failure PCI TO LAD 11/2019 History of nephrolithiasis 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.A candidate for denosumab Hypertension Hypokalemia Hypokalemia Hypothyroidism Metabolic acidosis Multiple myeloma Peripheral neuropathy Pleural effusion Chronic stable rt pleural effusion likely 2/2 to Decompensated HFrEF ,PNA.Improving Pneumonia Resolved Recent non-ST elevation myocardial infarction Surgical History H/O cystoscopy H/O foot surgery H/O lithotripsy H/O: hysterectomy History of cholecystectomy History of mastectomy, subtotal History of right hip replacement History of thyroidectomy Status post breast reduction Stented coronary artery Family History Mother Congestive heart failure Cancer breast and kidney CAD (coronary artery disease) Sister Cancer Grandmother Stroke Denies family history of Diabetes Clotting disorder Dementia Chronic kidney disease (CKD) Suicide Anesthesia complication Bleeding disorder Lung disease Social History Smoking and tobacco status: never smoked Second hand smoke exposure: No Smoking risk assessment/counseling performed?: Yes Alcohol intake: never Desire information about alcohol rehabilitation?: No Counseling given: No Caregiver/support person: Yes Lives independently: Yes Household members: spouse Housing: House Marital status: Current occupational status: retired History of recent travel: No Current gender identity: Female Data Anesthesia Cardiac Studies: No Data to Display
--- NOTE | 2020-07-06 12:37 | W.PM.OPSUD ---
Surgery/Procedure H&P Update DATE OF PROCEDURE: July 06, 2020 DATE H&P PERFORMED: 07/03/20 H&P UPDATE INFORMATION: I have reviewed H&P completed within last 30 days, I have examined patient prior to procedure and No changes to prior documentation PREOP DIAGNOSIS: Multiple myeloma PLANNED PROCEDURE: Operation Date: 07/06/20 13:05 Proposed Procedures p Portacath Placement 04972 c90.00(Not Applicable) - Josh Bower MD
--- NOTE | 2020-07-06 12:59 | SC_ITS ---
WS: [id number] C-ARM RADIOGRAPHS CHEST; 3 IMAGES HISTORY: surgery COMPARISON: None available. Intraoperative imaging during Mediport placement. SC/C-arm FL for CVA [id number] IMPRESSION: Intraoperative imaging during Mediport placement.
[2020-07-06] MEDS: heparin, porcine 1,000 unit/mL INJ 10 mL 10000 UNIT IRRIGATION (13:32)
[2020-07-06] MEDS: lidocaine 1% INJ 20 mL INJECTION (13:33)
[2020-07-06 13:49] VITALS: BP 164/68; PULSE 107; RESP 20; TEMP 36.6; O2SAT 93
[2020-07-06 13:55] VITALS: BP 162/68; PULSE 100; RESP 16; O2SAT 100
--- NOTE | 2020-07-06 13:57 | PM.OP ---
Operative Report Date of procedure: July 06, 2020 Pre-op Diagnosis: Multiple myeloma Post-op diagnosis: same Procedure Done: 1. Placement of PowerPort in the left subclavian vein 2. Fluoroscopic guidance and interpretation for placement of catheter Pathology: none sent Surgeon: Josh Bower Anesthesia: MAC Condition: stable Disposition: PACU Procedure: The patient was taken to the Operating Room and the chest and neck bilaterally were prepped and draped in a sterile manner after the antibiotic had been administered and shoulder rolls had been placed. A total of 10 mL of 1% lidocaine with 0.5% Marcaine was infiltrated under the clavicle on the left side at the site of the planned entry into the subclavian vein. An introducer needle was then used to access the subclavian vein under the clavicle and after withdrawing blood syringe was removed and a guidewire passed under fluoroscopy into the superior vena cava. The site of the planned port was then marked on the chest and a 15 blade was used to make a 3 cm skin incision this was extended into the subcutaneous tissue using electrocautery and a subcutaneous pocket over the pectoralis fascia was created 2-0 Vicryl suture was used to suture the port to the pectoral fascia in the pocket on 3 sides. The catheter, after having been flushed with hep saline, was attached to the tunneler and a tunnel created between the port site and the subclavian vein entry site. Under fluoroscopy the dilator sheath was passed over the guidewire into the proximal superior vena cava. The inner dilator was removed and the sheath left behind and~ the catheter was introduced through the peel-away sheath with the tip in the superior vena cava. The peel-away sheath was removed. The proximal end of the catheter was cut to the right size and was attached to the port. Using a Lomax needle the port was accessed, it withdrew blood easily and flushed easily. A final 5cc of heparin was used to flush the PowerPort. The subcutaneous tissue was approximated using interrupted 3-0 Vicryl sutures and the skin at the introducer site and the port site was closed using subcuticular running 4-0 Monocryl sutures. Surgical glue was applied and the patient was stable throughout the procedure. Fluoroscopic guidance and interpretation was performed for introduction of the guidewire in the left subclavian vein, passage of dilator and placement of catheter tip in the distal superior vena cava.
[2020-07-06 14:00] VITALS: BP 170/73; PULSE 97; RESP 20; O2SAT 100
[2020-07-06 14:05] VITALS: BP 157/69; PULSE 99; RESP 20; O2SAT 95
--- NOTE | 2020-07-06 15:47 | ANE.PACU2 ---
Inpatient post-anesthesia follow up: Airway intact: Yes Vital signs: Temperature 97.9 F Pulse Rate 99 Respiratory Rate 20 Blood Pressure 157/69 Pulse Oximetry 95 Oxygen Delivery Me thod Room Air Oxygen Flow Rate 6 Fraction of Inspir ed Oxygen Hydration adequate: Yes Nausea and vomiting: No Pain level: 2 Mental status: Baseline
== END 2020-07-06 15:17 | disposition home or self-care (01) ==
PROVIDERS: PCP Family Medicine; Visit Provider Surgery
PROC: (CPT 36561; principal; 2020-07-06 12:55)
DX: C90.00 Multiple myeloma not having achieved remission (principal); I25.10 Atherosclerotic heart disease of native coronary artery without angina pectoris; Z95.5 Presence of coronary angioplasty implant and graft; I11.0 Hypertensive heart disease with heart failure; I50.31 Acute diastolic (congestive) heart failure; E78.5 Hyperlipidemia, unspecified; E03.9 Hypothyroidism, unspecified; I25.2 Old myocardial infarction; M19.90 Unspecified osteoarthritis, unspecified site
CPT/HCPCS: 36561; 76000; 77001; C1788; J0690; J1644; J3490; J7030

== ENCOUNTER 2020-07-21 14:36 | Outpatient (RCR) | payer MEDICARE, SELFPAY ==
[2020-07-07 14:44] LABS: Basophils % 0.5 %; Eosinophils # 0.1 10^3/uL (0.0-0.8); Eosinophils % 1.6 %; Hematocrit 27.9 % (37.0-47.0); Hemoglobin 8.5 g/dL (11.5-15.3); Lymphocytes # 1.8 10^3/uL (0.8-4.8); Lymphocytes % 46.1 %; Mean Corpuscular HGB Conc 30.5 g/dL (30.0-36.0); Mean Corpuscular Hemoglobin 32.8 pg (28.0-34.0); Mean Corpuscular Volume 107.7 fL (81-99); Mean Platelet Volume 11.1 fL (7.4-10.4); Monocytes # 0.6 10^3/uL (0.2-0.9); Monocytes % 15.2 %; Neutrophils # 1.39 10^3/uL (1.8-7.7); Neutrophils % 36.3 %; Nucleated Red Blood Cells % 0 %; Platelet Count 61 10^3/cmm (130-400); Red Blood Count 2.59 10^6/uL (4.1-5.3); Red Cell Distribution Width 24.3 % (12.1-15.1); White Blood Count 3.8 10^3/uL (4.0-10.0)
[2020-07-07 15:51] LABS: Anion Gap 9.5 (5-19); Blood Urea Nitrogen 14 mg/dL (8-23); Calcium 11.4 mg/dL (8.5-10.5); Carbon Dioxide 24 mmol/L (22-29); Chloride 101 mmol/L (98-107); Glucose 131 mg/dL (65-115); Osmolality Calculated 274 mOsm/kg (285-295); Potassium 3.5 mmol/L (3.5-5.1); Sodium 131 mmol/L (136-145)
[2020-07-08] MEDS: acetaminophen 325 mg Tablet PO (17:45)
[2020-07-14 16:49] LABS: Basophils % 0.2 %; Eosinophils # 0.1 10^3/uL (0.0-0.8); Eosinophils % 1.5 %; Hematocrit 24.9 % (37.0-47.0); Hemoglobin 7.8 g/dL (11.5-15.3); Lymphocytes # 1.6 10^3/uL (0.8-4.8); Mean Corpuscular HGB Conc 31.3 g/dL (30.0-36.0); Mean Corpuscular Hemoglobin 34.1 pg (28.0-34.0); Mean Corpuscular Volume 108.7 fL (81-99); Mean Platelet Volume 10.4 fL (7.4-10.4); Monocytes # 0.8 10^3/uL (0.2-0.9); Monocytes % 19.2 %; Neutrophils # 1.58 10^3/uL (1.8-7.7); Neutrophils % 38.9 %; Nucleated Red Blood Cells % 0 %; Platelet Count 69 10^3/cmm (130-400); Red Blood Count 2.29 10^6/uL (4.1-5.3); Red Cell Distribution Width 24.4 % (12.1-15.1); White Blood Count 4.1 10^3/uL (4.0-10.0)
[2020-07-14 17:08] LABS: Anion Gap 11.2 (5-19); Blood Urea Nitrogen 21 mg/dL (8-23); Calcium 11.9 mg/dL (8.5-10.5); Carbon Dioxide 24 mmol/L (22-29); Chloride 104 mmol/L (98-107); Glucose 137 mg/dL (65-115); Osmolality Calculated 285 mOsm/kg (285-295); Potassium 4.2 mmol/L (3.5-5.1); Sodium 135 mmol/L (136-145)
[2020-07-15] MEDS: diphenhydrAMINE 25 mg Capsule PO (12:45)
[2020-07-15] MEDS: sodium chloride 0.9% 250 ML 240 ML IV (17:17)
[2020-07-21 15:52] LABS: Basophils % 0.2 %; Eosinophils # 0.1 10^3/uL (0.0-0.8); Eosinophils % 1.8 %; Hematocrit 30.5 % (37.0-47.0); Hemoglobin 9.6 g/dL (11.5-15.3); Lymphocytes # 1.9 10^3/uL (0.8-4.8); Lymphocytes % 41.1 %; Mean Corpuscular HGB Conc 31.5 g/dL (30.0-36.0); Mean Corpuscular Hemoglobin 32.1 pg (28.0-34.0); Mean Platelet Volume 11.1 fL (7.4-10.4); Monocytes # 0.9 10^3/uL (0.2-0.9); Monocytes % 20.2 %; Neutrophils # 1.64 10^3/uL (1.8-7.7); Neutrophils % 36.5 %; Nucleated Red Blood Cells % 0 %; Platelet Count 59 10^3/cmm (130-400); Red Blood Count 2.99 10^6/uL (4.1-5.3); Red Cell Distribution Width 23.3 % (12.1-15.1); White Blood Count 4.5 10^3/uL (4.0-10.0)
[2020-07-21 16:26] LABS: Anion Gap 9.8 (5-19); Blood Urea Nitrogen 17 mg/dL (8-23); Calcium 12.1 mg/dL (8.5-10.5); Carbon Dioxide 22 mmol/L (22-29); Chloride 102 mmol/L (98-107); Glucose 105 mg/dL (65-115); Osmolality Calculated 272 mOsm/kg (285-295); Potassium 3.8 mmol/L (3.5-5.1); Sodium 130 mmol/L (136-145)
== END 2020-07-27 23:59 | disposition home or self-care (01) ==
LOC: ONCMED 14:36
PROVIDERS: Nurse Practitioner; PCP Family Medicine; Visit Provider Internal Medicine Medical Oncology
DX: C90.00 Multiple myeloma not having achieved remission (principal); D64.9 Anemia, unspecified; E83.52 Hypercalcemia; Z79.899 Other long term (current) drug therapy
CPT/HCPCS: 80048; 85025; 86850; 86900; 86920; J7050; P9016

== ENCOUNTER 2020-08-13 05:43 | Outpatient (RCR) | payer MEDICARE, SELFPAY ==
[2020-07-28 14:06] LABS: Basophils % 0.2 %; Eosinophils # 0.1 10^3/uL (0.0-0.8); Eosinophils % 1.7 %; Hematocrit 26.7 % (37.0-47.0); Hemoglobin 8.3 g/dL (11.5-15.3); Lymphocytes # 1.8 10^3/uL (0.8-4.8); Mean Corpuscular HGB Conc 31.1 g/dL (30.0-36.0); Mean Corpuscular Hemoglobin 32.7 pg (28.0-34.0); Mean Corpuscular Volume 105.1 fL (81-99); Mean Platelet Volume 10.3 fL (7.4-10.4); Monocytes # 1.1 10^3/uL (0.2-0.9); Monocytes % 21.7 %; Neutrophils # 2.17 10^3/uL (1.8-7.7); Nucleated Red Blood Cells % 0 %; Platelet Count 67 10^3/cmm (130-400); Red Blood Count 2.54 10^6/uL (4.1-5.3); White Blood Count 5.2 10^3/uL (4.0-10.0)
[2020-07-28 14:22] LABS: Alanine Aminotransferase 14 U/L (0-33); Alkaline Phosphatase 99 IU/L (35-105); Anion Gap 9.4 (5-19); Aspartate Amino Transferase 36 U/L (0-32); Blood Urea Nitrogen 19 mg/dL (8-23); Calcium 13.2 mg/dL (8.5-10.5); Carbon Dioxide 23 mmol/L (22-29); Chloride 104 mmol/L (98-107); Globulin 8.5 g/dL (1.3-4.6); Glucose 105 mg/dL (65-115); Osmolality Calculated 277 mOsm/kg (285-295); Potassium 4.4 mmol/L (3.5-5.1); Sodium 132 mmol/L (136-145); Total Protein 10.5 g/dL (6.6-8.7)
[2020-07-28 14:29] LABS: Total Bilirubin 0.6 mg/dL (0.15-1.2)
[2020-07-29] VITALS (10 sets, daily range): BP systolic 133–142; BP diastolic 50–62; PULSE 61–67; RESP 17–18; TEMP 36.8–37.3; O2SAT 96–97
[2020-07-29] MEDS: diphenhydrAMINE 25 mg Capsule PO (09:30)
[2020-07-29] MEDS: acetaminophen 325 mg Tablet 650 MG PO (09:30)
[2020-07-29] MEDS: sodium chloride 0.9% 250 ML 999 ML IV (09:30)
--- NOTE | 2020-08-14 08:04 | ONC FU_ITS ---
Dr. Muñoz Patient Follow-Up Note Patient: [facility] #: [id number]: [id number] Dicatated By: Kris Muñoz M.D.Date of Visit:Aug 13, 2020 Onc Med Follow-up/Prog Note Chief Complaint: Myeloma. History of Present Illness: This is an 84 year-old woman with IgG kappa myeloma. She had presented to Dr. Nieto on 10/24/2017 with complaints of dizziness/lightheadedness, fatigue, and anorexia. She reported that at times she felt like passing out and having to lie down. She reported having problems with memory and she complained that she had been sleeping a lot. Her CBC showed low hemoglobin at 8.8 g, white blood cell count borderline at 4300 and platelet count mildly decreased at 103,000. Her comprehensive metabolic profile showed elevated BUN and creatinine at 23 and 1.42 mg/dL and significantly elevated serum calcium at 14.5 mg/dL with albumin low at 2.5 g/dL. The calculated serum globulin was significantly elevated at 7.9 g/dL. Bone marrow aspiration/biopsy on 10/27/2017 showed hypercellular marrow with 63% plasma cells, consistent with myeloma. At that time, she was given an infusion of sodium pamidronate for the hypercalcemia, and she also was given dexamethasone 40 mg daily for 4 days. Skeletal survey on 10/27/2017 showed evidence of diffuse bone demineralization but without evidence of large osteolytic lesion. Subcentimeter lucent foci in the femora bilaterally were felt to be consistent with osteoporosis, myelomatous lesions, or metastatic disease. Serum protein electrophoresis and 11/20/2017 showed IgG kappa paraprotein quantitating at 4.1 g/dL. The free light chain assay showed elevated free kappa light chain at 228.24 mg/L with elevated kappa/lambda ratio at 17.40. She returned on 11/16/2017 to begin treatment with Velcade/Revlimid/dexamethasone. I opted to use a weekly Velcade regimen on a 21/28 day schedule. Due to her age and renal function, the Revlimid was initiated at a reduced dosage of 10 mg daily for 21 days. The dexamethasone was reduced to 20 mg weekly. At that time, her calcium had become elevated again at 10.3 mg/dL with albumin 2.2 g/dL. Her renal function had improved with creatinine down to 1.0 mg/dL. As such, she was given zoledronic acid 3.5 mg by IV infusion. On 11/20/2017 she came in with a 2-day history of fever and chills. A specific source of infection was not identified other than her chest x-ray was suspicious for possible pneumonia. She was treated empirically with Levaquin, I did opt to put her Revlimid on hold, as she also was having diarrhea at that point. Her follow-up CBC on 11/23/2017 showed further decline in hemoglobin to 6.4 g, and the following day she was transfused 2 units of PRBC. She did receive her day 8 Velcade, and she was able to return for day 15 Velcade on 11/29/2017. Hemoglobin at that point was adequate at 9.9 g. She then continued her 2nd cycle on 12/13/2017 with the Revlimid omitted. The Velcade was again administered weekly for 3 weeks, and the dexamethasone was changed to 20 mg twice weekly. A repeat protein electrophoresis on 12/25/2017 showed significant improvement with the M protein quantitating at 0.73 g/dL. She then continued with cycle 3 of Velcade/dexamethasone on 01/11/2018, with cycle 4 on 02/07/2018, with cycle 5 on 03/06/2018, and with cycle 6 on 04/04/2018. Her repeat serum protein electrophoresis on 05/01/2018 showed 2 monoclonal protein bands which together quantitated at 0.21 g/dL compared to 0.31 g/dL on 03/06/2018. The serum free light chain assay showed normal kappa light chain at 1.28 mg/dL and normal lambda light chain at 1.52 mg/dL with the kappa/lambda ratio normal at 0.8421. She was seen for a follow-up visit on 05/02/2018, and she then began maintenance Revlimid at 5 mg daily. As of 05/29/2018 the Revlimid was put on hold due to worsening skin eruption. The skin eruption had initially continued to worsen somewhat after stopping the Revlimid, but it then gradually resolved. I had seen her for a follow-up visit on 07/17/2018. At that point she had only minimal residual M protein. She appeared stable clinically, and given the side effects she experienced with her treatment, I opted to just follow her on observation/expectant management. As of March 2019 there was a significant increase in her M protein and in her kappa free light chain. She had become mildly anemic. It was clear at that point that her myeloma was progressing, and we opted to proceed to a trial of second line therapy with daratumumab in combination with carfilzomib and dexamethasone. She began her day 1 treatment on 05/14/2019, which she tolerated well. However, following her day 2 treatment she was admitted to the hospital with acute respiratory distress/flash pulmonary edema. Her clinical course was complicated by non-ST elevation myocardial infarction, acute renal injury, and thrombocytopenia. She did have a good recovery, and she was then followed on observation/expectant management. As of July 2019 her M protein had increased significantly, to 2.65 g/dL. At that point she had become mildly anemic, hemoglobin 10.4 g. Her renal function, though, remained normal with creatinine 0.78 mg/dL. Restaging PET/CT on 08/29/2019 was felt to be likely a negative examination with no evidence for osseous or soft tissue tumor involvement. There were findings which were felt to most likely reflect prominent arthritic changes. With the significant increase in her M protein, she started 3rd line treatment with pomalidomide in combination with ixazomib and dexamethasone, cycle 1 beginning on 09/13/2019. The pomalidomide was put on hold due to side effects, the most significant being fatigue, fever, and just not feeling good generally. As of her follow-up visit on 09/30/2019 the ixazomib was also put on hold. She then continued treatment with dexamethasone 20 mg 4 days a week. I had seen her for a follow-up visit on 10/15/2019. At that time she planning to undergo left total hip arthroplasty. The procedure had been scheduled for 10/30/2019. As such, I had stopped her steroid therapy. However, her hip surgery ended up being canceled, because of anemia and hypercalcemia. I had seen her for a follow-up visit on 11/19/2019. At that time I had discussed the possibility of continuing further treatment either with melphalan/prednisone or with belantamab [id number]. She was significantly anemic with hemoglobin 8.5 g. Renal function was still normal with creatinine 0.81 mg/dL, but calcium was significantly elevated at 12.3 mg/dL. She was given an infusion of sodium pamidronate. Her further clinical course was complicated by hospital admission for cardiac ischemia requiring angioplasty with stent placement to the LAD. She had to subsequent hospitalizations for congestive heart failure/pneumonia. She was discharged home on 12/22/2019. During that time, she was transfused on 2 different occasions. I had seen her for a follow-up visit on 01/02/2020. Given her progression following VRd/maintenance Revlimid and poor tolerance for pomalidomide, carfilzomib, and daratumumab, I had recommended a trial of therapy with melphalan/prednisone. She began cycle 1 on 01/16/2020. 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 She developed neutropenia and thrombocytopenia, neither of which was severe enough to require specific treatment. She also had hypercalcemia which had persisted despite treatment with zoledronic acid and sodium pamidronate. Her repeat protein electrophoresis on 02/24/2020 showed significant increase in the M protein to 7.4 g/dL. With that finding, she was recommended to proceed with a trial of salvage therapy with belantamab mafodotin. Her medical illnesses, in addition to the myeloma, include hypertension, type II diabetes with peripheral neuropathy, coronary artery disease, and degenerative arthritis. She is a nonsmoker. INTERIM HISTORY: On 04/01/2020 she began cycle 1 of belantamab mafodotin. She tolerated the initial infusion without significant toxicity, but the following day she did run low-grade fever. She improved on empiric antibiotic therapy with Levaquin. During this time she had remained transfusion dependent. Her creatinine and calcium levels, though, had stabilized. She continued with cycle 2 on 04/22/2020 and with cycle 3 on 05/13/2020. As of her follow-up visit on 06/03/2020 her treatment was put on hold due to declining performance status. Her renal function at that point remained adequate. Her serum calcium was mildly elevated but stable. Her serum protein electrophoresis continued to show significantly elevated M protein, quantitating at 5.8 g/dL. During subsequent follow-up her clinical status had initially remained stable, though she continued to have a transfusion requirement. However, during the past couple of weeks there has been a significant decline in her condition, as she has now become very weak and she also has developed some confusion. She has very limited activity. ECOG score is 3. Her appetite is still okay. She does not have fever or night sweats. She has not had sore throat or difficulty swallowing. Her breathing tends to be shallow, and she has been using oxygen at night. She has nonproductive cough. She does not complain of chest pain. She has no GI complaints. Bowel function is still pretty good, and bladder function remains adequate. She has some pain, particularly when she moves around and mainly in the shoulders, hips, knees, and legs. She does not complain of headache and she has no numbness/paresthesia or other focal neurologic symptoms. Medications: Acetaminophen Tablet Oral PRN, ALPRAZolam 1 Tablet (of 0.5 mg) Oral at bedtime PRN, AmLODIPine Besylate 1 Tablet (of 10 mg) Oral every am, Atorvastatin Calcium 1 Tablet (of 40 mg) Oral daily, Clopidogrel Bisulfate 1 Tablet (of 75 mg) Oral daily, Furosemide 1 Tablet (of 40 mg) Oral every am, Isosorbide Mononitrate 1 Tablet (of 30 mg) Oral daily, K-Tab 1 Tablet (of 20 meq) Tablet, controlled release Oral daily, Levothyroxine Sodium 1 Tablet (of 125 mcg) Oral daily, Metoprolol Succinate ER 1 Tablet (of 50 mg) Tablet SR 24 HR Oral b.i.d., Pantoprazole Sodium 1 Tablet (of 40 mg) Tablet, enteric coated Oral daily, PreserVision AREDS 2 Tablet Oral daily, Senna S 1 - 2 Tablet (of 8.6-50 mg) Oral daily Allergies: Carfilzomib, Daratuzumab, EKG patches, Lisinopril, Pomalidomide, and revlimd. Vital Signs: Performed on Aug 13, 2020 14:00 Height - 66.00 in Temperature - 98.8 F Pulse - 62 /min Respiration - 16 /min BP - 146/50 mm(hg) (HIGH) O2 Sat - 90 % (LOW) Performed on Aug 13, 2020 09:09 Height - 66.00 in Temperature - 98.4 F Pulse - 57 /min (LOW) Respiration - 18 /min BP - 135/54 mm(hg) O2 Sat - 97 % Pain - 0 Fatigue - 10 Physical Examination: Constitutional - She appears generally weak and lethargic, Eyes - Sclerae nonicteric. Conjunctivae clear. There is mild periorbital edema, ENMT - No lesions noted in the oral cavity, Hematologic/Lymphatic - No cervical, clavicular, or axillary adenopathy, Respiratory - Lungs sound clear, Cardiovascular - Heart rhythm is irregular. There is a II/ systolic murmur. There is no gallop or rub noted, Abdomen - Soft. Liver and spleen are not enlarged. There is no abdominal mass or ascites noted and there is no inguinal adenopathy, Extremities - No lower extremity edema. There are scattered purpuric lesions on both arms, Neurologic - She is lethargic but she is able to respond appropriately. Her speech is slightly slurred. She does not appear to have any focal neurologic deficits noted. Lab/Imaging: Test performed on Aug 11, 2020 11:29 Glucose 109 mg/dL BUN 25 mg/dL Creatinine 1.16 mg/dL Sodium 133 mmol/L Potassium 4.0 mmol/L Chloride 104 mmol/L CO2 27 mmol/L Calcium 16.0 mg/dL WBC 5.7 10^9/L RBC 3.08 10^12/L HGB 10.0 g/dL HCT 31.2 % MCV 101.3 fl MCH 32.5 pg MCHC 32.1 g/dL RDW 22.6 % Platelet Count 61 10^9/L MPV 10.2 fL Neutrophils (Gran) 2.67 10^9/L Lymphocytes 2.12 10^9/L Monocytes 0.82 10^9/L Eosinophils 0.08 10^9/L Basophils 0.01 10^9/L Manual Lymphocytes 37 % Manual Monocytes 14 % Manual Eosinophils 1 % Manual Basophils 0 % Problem List: 1. IgG kappa myeloma. Her bone marrow aspiration/biopsy on 10/27/2017 was hypercellular with 63% plasma cells. She had anemia, renal dysfunction, and symptomatic hypercalcemia at initial presentation. Her skeletal survey showed diffuse bone demineralization, but without evidence of any large osteolytic lesions. 2. Hypertension. 3. Type II diabetes. 4. Coronary artery disease requiring coronary angioplasty/stent placement. 5. Peripheral neuropathy. 6. Degenerative arthritis. 7. She has a history of nephrolithiasis. Problems Addressed with this Encounter and Plan: IgG kappa myeloma. Her bone marrow aspiration/biopsy on 10/27/2017 was hypercellular with 63% plasma cells. She had anemia, renal dysfunction, and symptomatic hypercalcemia at initial presentation. Her skeletal survey showed diffuse bone demineralization, but without evidence of any large osteolytic lesions. She had some improvement on initial treatment with high-dose dexamethasone and zoledronic acid. On 11/16/2017 she began treatment with Velcade, Revlimid, and dexamethasone. She had a good response, though she had difficulty tolerating the Revlimid. As of March 2018 she completed 6 cycles of treatment. She was unable to tolerate Revlimid maintenance. She began 2nd line treatment with daratumumab in combination with carfilzomib and dexamethasone on 05/14/2019. It was complicated by acute respiratory distress/flash pulmonary edema. In August 2019 she began 3rd line treatment with pomalidomide in combination with ixazomib and dexamethasone. It was also tolerated poorly and stopped the following month. She began 4th line treatment with melphalan/prednisone in December 2019. She was able to tolerate it with acceptable toxicity, but without significant clinical improvement. During this time she continued to have transfusion dependent anemia and she also had recurrence of hypercalcemia and worsening of renal function. She was maintained with intermittent courses of high-dose dexamethasone and with infusions of sodium pamidronate. On 04/01/2020 she began 5th line treatment with belantamab mafodotin. She tolerated the initial infusion without acute toxicity, though she subsequently was given antibiotic therapy with Levaquin for suspected respiratory tract infection. She then continued with cycle 2 on 04/22/2020 and with cycle 3 on 05/13/2020. As of her follow-up visit on 06/03/2020 her treatment was put on hold due to declining performance status. At that point her renal function remained adequate. Her serum calcium was mildly elevated but stable. Her M protein remains significantly elevated at 5.8 g/dL. She also remained transfusion dependent. During follow-up her clinical status had initially remained stable, but it has now declined significantly in association with development of hypercalcemia and declining renal function, consistent with progression of the myeloma. I had a lengthy discussion with the patient and her family regarding her further management. As her disease now appears to be very treatment refractory, her overall prognosis is extremely poor. We do have the option to treat her with sodium pamidronate and IV hydration for the hypercalcemia, which may provide some symptomatic improvement, but it would be very temporary. The options for further treatment of her myeloma are very limited. One would be a trial of therapy with melflufen, but it would have to be administered at a reduced dosage as one of the major toxicities is thrombocytopenia, and her platelet count is already moderately decreased. Another option would be to retry daratumumab in combination with dexamethasone but with the daratumumab administered by subcutaneous injection. It would still carry some risk of hypersensitivity reaction, but less compared to the IV infusion. The other option for management now is to transition to symptomatic/supportive care on hospice, which is not at all a bad choice given the low probability that her myeloma will respond to further treatment. After reviewing options, they have decided to go ahead with the sodium pamidronate, which will be administered by IV infusion and a liter of saline. She also will be given IV dexamethasone. She will tentatively be scheduled to return here on Monday. If she has had significant improvement in her clinical status, she can be given further hydration and sodium pamidronate as needed. She also can be transfused as needed, and we can consider resuming treatment for the myeloma. If she has not had significant improvement, then it would be best to transition to hospice care. Signed By: Kris Muñoz M.D. <<Signature on File>>
== END 2020-08-26 23:59 | disposition home or self-care (01) ==
LOC: ONCMED 05:43
PROVIDERS: PCP Family Medicine; Visit Provider Internal Medicine Medical Oncology
DX: C90.00 Multiple myeloma not having achieved remission (principal); C79.51 Secondary malignant neoplasm of bone; D64.9 Anemia, unspecified; N17.9 Acute kidney failure, unspecified; E83.52 Hypercalcemia; I10 Essential (primary) hypertension; E11.59 Type 2 diabetes mellitus with other circulatory complications; I25.10 Atherosclerotic heart disease of native coronary artery without angina pectoris; Z95.5 Presence of coronary angioplasty implant and graft; E11.42 Type 2 diabetes mellitus with diabetic polyneuropathy; M19.90 Unspecified osteoarthritis, unspecified site; Z87.442 Personal history of urinary calculi; Z79.899 Other long term (current) drug therapy
CPT/HCPCS: 36430; 36591; 80053; 85025; 86850; 86900; 86920; 96365; 96366; 96367; 99215; J7050; P9016

== ENCOUNTER 2020-08-14 21:08 | Observation (INO) | payer MEDICARE, SELFPAY ==
[2020-08-14 21:18] VITALS: BP 173/60; PULSE 98; RESP 28; TEMP 36.9; O2SAT 94; BMI 26.2
--- NOTE | 2020-08-14 21:21 | CTR_ITS ---
PROCEDURE INFORMATION: Exam: CT Head Without Contrast Exam date and time: 08/14/2020 9:21 PM Age: 84 years old Clinical indication: Altered mental status/memory loss; Additional info: AMS TECHNIQUE: Imaging protocol: Computed tomography of the head without contrast. Radiation optimization: All CT scans at this facility use at least one of these dose optimization techniques: automated exposure control; mA and/or kV adjustment per patient size (includes targeted exams where dose is matched to clinical indication); or iterative reconstruction. COMPARISON: [place] contrast [id number] 01/06/2016 10:49 AM RADIATION DOSE METRICS: Total DLP (mGy-cm): 3090.51 FINDINGS: Brain: There is moderate cerebral atrophy. There is moderate diffuse heterogeneity of the white matter attenuation, consistent with chronic white matter ischemic changes. Negative for intracranial hemorrhage. No midline shift of brain. Cunningham matter and white matter interfaces are preserved. Cerebral ventricles: No ventriculomegaly. Paranasal sinuses: Visualized sinuses are unremarkable. No fluid levels. Mastoid air cells: Visualized mastoid air cells are well aerated. Orbital cavity: Symmetric orbits. Vasculature: Intracranial atherosclerosis. Bones/joints: See Dental finding. Soft tissues: Unremarkable. Dental: Extensive small lucent lesions throughout the calvarium are new from 01/06/2016. No calvarial fractures. CT/CT head wo con* [id number] IMPRESSION: 1. Negative for acute intracranial abnormality. 2. Acute extensive small circumscribed lucent bone lesions throughout the calvarium which are new since 01/06/2016 and suspicious for malignancy such as sequela of multiple myeloma. Other marrow replacement process possible. Radiation Dose CTDIVOL = (mGy): DLP = 3090.51 (mGy-cm)
--- NOTE | 2020-08-14 21:21 | XRR_ITS ---
PROCEDURE INFORMATION: Exam: XR Chest Exam date and time: 08/14/2020 9:21 PM Age: 84 years old Clinical indication: Fever; Prior surgery; Surgery type: Port; Additional info: Fever, AMS. Cancer patient TECHNIQUE: Imaging protocol: XR of the chest. Views: 1 view. COMPARISON: CR XR chest 1V portable [id number] 03/23/2020 11:36 AM FINDINGS: Tubes, catheters and devices: Left chest tunnel Port-A-Cath terminates mid SVC. Lungs: Hazy central ground-glass opacities. Emphysematous lung changes in the background. Pleural spaces: Bilateral pleural effusions greater on left than right. Negative for pneumothorax. Heart/Mediastinum: Moderate cardiac enlargement. Bones/joints: Demineralized bones. XR/XR chest 1V portable [id number] IMPRESSION: Fluid overload changes in the chest.
[2020-08-14 22:10] LABS: Eosinophils % 0.8 %; Hematocrit 32.3 % (37.0-47.0); Hemoglobin 10.2 g/dL (11.5-15.3); Lymphocytes # 0.4 10^3/uL (0.8-4.8); Lymphocytes % 34.1 %; Mean Corpuscular HGB Conc 31.6 g/dL (30.0-36.0); Mean Corpuscular Hemoglobin 32.4 pg (28.0-34.0); Mean Corpuscular Volume 102.5 fL (81-99); Mean Platelet Volume 10.9 fL (7.4-10.4); Monocytes # 0.1 10^3/uL (0.2-0.9); Monocytes % 4.8 %; Neutrophils % 59.5 %; Nucleated Red Blood Cells % 1.6 %; Platelet Count 56 10^3/cmm (130-400); Red Blood Count 3.15 10^6/uL (4.1-5.3); Red Cell Distribution Width 23.1 % (12.1-15.1); White Blood Count 1.3 10^3/uL (4.0-10.0)
[2020-08-14 22:20] LABS: Neutrophils # 0.75 10^3/uL (1.8-7.7)
[2020-08-14 22:40] LABS: Alanine Aminotransferase 14 U/L (0-33); Albumin Level 1.9 g/dL (3.5-5.2); Alkaline Phosphatase 85 IU/L (35-105); Anion Gap 10.4 (5-19); Aspartate Amino Transferase 36 U/L (0-32); Blood Urea Nitrogen 29 mg/dL (8-23); C Reactive Protein 7.3 mg/L (0.0-4.9); Carbon Dioxide 23 mmol/L (22-29); Chloride 103 mmol/L (98-107); Globulin 9.3 g/dL (1.3-4.6); Glucose 74 mg/dL (65-115); Osmolality Calculated 280 mOsm/kg (285-295); Potassium 3.4 mmol/L (3.5-5.1); Sodium 133 mmol/L (136-145); Total Protein 11.2 g/dL (6.6-8.7)
[2020-08-14 22:41] LABS: Lactic Sepsis W/Reflex 4.5 mmol/L (0.5-2.2)
--- NOTE | 2020-08-14 22:41 | PM.HP ---
Providers/Chief Complaint Primary Care Provider: Shandra Lee MD Chief Complaint: n/v/fever ca patient and dec loc History of Present Illness Alta Red is a 84 year old female who has history of IgG kappa multiple myeloma, hypertension, type 2 diabetes, peripheral neuropathy, established coronary disease, degenerative arthritis, she is getting chemotherapy for multiple myeloma her recent chemotherapy session was 2 days ago, presented today with acute change in her mental status and febrile episode. Review of records revealed that she developed pulmonary edema secondary to daratumumab/carfilzomib, her functional status has been declining, she is not showing significant response to the treatment, she also has transfusion dependent anemia. She received 2 units PRBC in May. Patient is not able to provide any details, she was obtunded when entered the room, and daughter is at the bedside, daughters are endorsing that since initiation of chemotherapy her functional status has been declining, previously she was able to eat on her own and use restroom independently that has changed in last few weeks, 2 days before her arrival in the ER she was requiring spoon feeding and 2 person assist to go to the bathroom. Today before her arrival in the ER she was complaining of abdominal pain and was in a lot of distress. She had one episode of emesis at home as well. When her temperature was checked it was 100.7, she was experiencing rigors/chills, she asked for heating pads. Family put heating pad on her along multiple layers. And brought her to the ER for further evaluation. Diagnostics in the ER revealed pancytopenia, hyponatremia, hypokalemia, APOLONIA, hypercalcemia with high lactic acid, TSH 44, procalcitonin 3.6 Urinalysis consistent with hematuria and pyuria CT head negative for intracranial abnormality however acute extensive small circumscribed lucent bone lesion throughout calvarium consistent with multiple myeloma, chest x-ray consistent with fluid overload She was given vancomycin and Zosyn and was put on BiPAP, fluids were administered as well, family decided to pursue comfort measures in the ER before her admission in the hospital Review of Systems General: Reports: ROS unobtainable due to medical condition (Patient is obtunded) Medications/Allergies Home Medications Medication Instructions Recorded Confirmed Last Taken Type acetaminophen 650 mg 650 mg PO Q12H 05/15/19 07/06/20 07/05/20 History tablet,extended release amlodipine 10 mg PO DAILY #30 tab 03/28/20 05/10/21 05/09/21 Rx pantoprazole 40 mg tablet,delayed 40 mg PO DAILY 06/17/19 07/06/20 07/05/20 History release atorvastatin 40 mg PO DAILY #30 tab 12/15/19 07/06/20 07/05/20 Rx furosemide 40 mg PO BID #0 tab 12/15/19 07/06/20 07/05/20 Rx levothyroxine [Euthyrox] 125 mcg PO DAILY 01/22/20 07/06/20 07/05/20 History acyclovir 400 mg tablet 400 mg PO BID tab 03/31/20 07/06/20 07/05/20 History docusate sodium 100 mg capsule 100 mg PO BID 03/31/20 07/06/20 07/05/20 History isosorbide mononitrate 30 mg 30 mg PO DAILY 30 Days #30 tab 03/31/20 07/06/20 07/05/20 Rx tablet,extended release 24 hr metoprolol tartrate 50 mg tablet 50 mg PO BID 30 Days #60 tab 03/31/20 07/06/20 07/03/20 Rx prochlorperazine maleate 10 mg 10 mg PO BID PRN 03/31/20 07/03/20 Unknown History tablet potassium chloride 20 mEq 20 meq PO DAILY #90 tab 07/01/20 07/06/20 07/05/20 Rx tablet,extended release clopidogrel 75 mg PO DAILY 07/03/20 07/06/20 07/03/20 History guaifenesin 1,200 mg tablet, 1,200 mg PO BID 07/03/20 07/06/20 07/05/20 History extended release 12 hr levofloxacin 500 mg tablet 500 mg PO DAILY 07/03/20 07/06/20 Unknown History oxybutynin chloride 5 mg 5 mg PO DAILY 07/03/20 07/06/20 07/04/20 History tablet,extended release 24 hr sulfamethoxazole 800 1 tab PO .twice a week tab 07/03/20 07/06/20 07/05/20 History mg-trimethoprim 160 mg tablet hydrocodone-acetaminophen 1 tab PO Q6H PRN #20 tab 07/06/20 Unknown Rx ondansetron HCl [Zofran] 4 mg PO Q6H PRN #20 tab 07/06/20 Unknown Rx Allergies Allergy/AdvReac Type Severity Reaction Status Date / Time lenalidomide [From Revlimid] Allergy ALGY-Rash Verified 08/14/20 21:21 lisinopril AdvReac ADR-Cough Verified 08/14/20 21:21 PFSH Acute PFSH: Medical History Acute diastolic heart failure Anemia Arthritis Benign essential hypertension with target blood pressure below 140/90 Diabetes Dyslipidemia Elevated troponin Heart failure PCI TO LAD 11/2019 History of nephrolithiasis 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.A candidate for denosumab Hypertension Hypokalemia Hypokalemia Hypothyroidism Metabolic acidosis Multiple myeloma Peripheral neuropathy Pleural effusion Chronic stable rt pleural effusion likely 2/2 to Decompensated HFrEF ,PNA.Improving Pneumonia Resolved Recent non-ST elevation myocardial infarction Surgical History H/O cystoscopy H/O foot surgery H/O lithotripsy H/O: hysterectomy History of cholecystectomy History of mastectomy, subtotal History of right hip replacement History of thyroidectomy Port-A-Cath in place (07/06/20) Status post breast reduction Stented coronary artery Family History Mother Congestive heart failure Cancer breast and kidney CAD (coronary artery disease) Sister Cancer Grandmother Stroke Denies family history of Diabetes Clotting disorder Dementia Chronic kidney disease (CKD) Suicide Anesthesia complication Bleeding disorder Lung disease Social History Smoking and tobacco status: never smoked Second hand smoke exposure: No Smoking risk assessment/counseling performed?: Yes Alcohol intake: never Desire information about alcohol rehabilitation?: No Counseling given: No Caregiver/support person: Yes Lives independently: Yes Household members: spouse Housing: House Marital status: Current occupational status: retired History of recent travel: No Current gender identity: Female Vitals/I&O/Wt Last Vital Signs Temp 98.5 F 08/14/20 21:18 Pulse 98 08/14/20 21:18 Resp 28 H 08/14/20 21:18 BP 173/60 08/14/20 21:18 Pulse Ox 94 08/14/20 21:18 Weight last 48 hrs Weight 71.668 kg Physical Exam Narrative: EXAM NARRATIVE: elderly female, malnourished, cachectic, pale appearance She is obtunded not able to communicate, opens her eyes to verbal command On BiPAP with normal hemodynamics Tachycardic, afebrile Distended abdomen, patient is not showing any signs of facial grimacing on deep palpation, bowel sounds hyperactive Lower extremity no edema gangrene ulcer No joint swelling or cellulitis Neuro exam limited Patient is not able to follow any verbal command Data : 08/14/20 22:00 08/14/20 22:00 Micro: Microbiology 08/14/20 22:00 Blood Culture - Preliminary Blood SPECIMEN COLLECTED 08/14/20 22:00 Blood Culture - Preliminary Blood SPECIMEN COLLECTED A&P Assessment and plan (1) Encephalopathy: Status: Acute (2) Pancytopenia: Status: Acute (3) Neutropenia: Status: Acute (4) Hypoxia: Status: Acute (5) Sepsis: Status: Acute Additional A&P Information Acute encephalopathy with sepsis 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 Febrile episode at home, concern for aspiration pneumonia as well as she had one episode of emesis Received vancomycin and Zosyn in the ER along fluids, she was put on BiPAP as she was DNR/DNI For neutropenic fever, I had a lengthy discussion with the and 3 daughters regarding pancytopenia, neutropenic fever, encephalopathy, paraneoplastic syndrome, and with ongoing poor functional status & resistant hypercalcemia, prognostic factors. Family decided to pursue comfort measures. Family was given ample opportunity to ask questions, I explained the difference between palliative versus hospice care, they were given the option of pursuing palliative management with continuation of fluids and antibiotics however decided to pursue comfort measures only. Attestations Medical Necessity Statement*: Anticipating poor outcome due to poor prognostic factors, comfort measures Time Spent in Patient Care: 45mins Coding Level of Care Code Acute Spectrographic Analyst for Kamila Dowell Diagnoses Encephalopathy G93.40 Pancytopenia D61.818 Neutropenia D70.9 Hypoxia R09.02 Sepsis A41.9
[2020-08-14 22:46] LABS: Total Bilirubin 0.6 mg/dL (0.15-1.2)
[2020-08-14 22:49] LABS: Calcium 14.4 mg/dL (8.5-10.5)
[2020-08-14 23:07] VITALS: RESP 38; O2SAT 83
[2020-08-14] MEDS: morphine 4 mg/mL SDV 1 mL IVP (23:07)
[2020-08-14] MEDS: ondansetron 2 mg/ML SDV 2 mL 4 MG IVP (23:08)
[2020-08-14] MEDS: vancomycin 1,000 MG in sodium chloride 0.9% 250 ML 250 MG IV (23:08)
[2020-08-14] MEDS: piperacillin-tazobactam 3.375 GM in sodium chloride 0.9% (plus) 50 ML IV (23:08)
[2020-08-14] MEDS: sodium chloride 0.9% 1,000 ML 999 ML IV (23:09)
[2020-08-14 23:18] LABS: Procalcitonin 3.66 ng/mL (0-0.5); Thyroid Stimulating Hormone 44.53 uIU/mL (0.27-4.20)
[2020-08-14 23:43] VITALS: PULSE 81; RESP 31; O2SAT 90
[2020-08-14 23:48] LABS: Add Urine Microscopic? YES; Bilirubin Urine Neg (Negative); Blood Urine 3+ (Negative); Glucose Urine UA Norm (Normal); Ketones Urine Negative (Negative); Leukocyte Esterase Urine Negative (Negative); Nitrate Urine Negative (Negative); Protein Urine Neg (Negative); Specific Gravity, Urine 1.015 (1.005-1.030); Urine Appearance SL Hazy (CLEAR); Urine Color Yellow (Yellow); Urobilinogen Urine Norm (Negative); pH Urine 5 (5-7)
[2020-08-14 23:53] LABS: Reflex Lactate Order REFLEX LACTIC ORDERD
[2020-08-14 23:54] LABS: Bacteria Urine 3+ /hpf; Mucus Urine 1+ /hpf; RBC Urine 40-50 /hpf (0-2); Squamous Epithelial Cell Urine 0-4 /hpf (0-5)
[2020-08-14 23:55] LABS: Add Urine Culture? Yes
[2020-08-15 00:40] VITALS: RESP 28; O2SAT 95
[2020-08-15] MEDS: morphine 4 mg/mL SDV 1 mL 8 MG IVP (00:40)
--- NOTE | 2020-08-15 01:03 | ED_ITS ---
HPI - Altered Mental Status General: Chief Complaint: Altered Mental Status Stated Complaint: n/v/fever ca patient and dec loc Time Seen by Provider: 08/14/20 21:11 Source: family Mode of arrival: EMS Limitations: altered mental status History of Present Illness: HPI narrative: Patient is an 84-year-old female with a history of multiple myeloma who was brought to the emergency department via EMS with complaints of declining functional status. Over the last few days the patient has apparently been declining and the family brought pain to be evaluated. Reviewing the notes from the oncologist she has hypercalcemia that is resistant to bisphosphonates and other treatments. We will also see if she makes it over this weekend with hydration. If there is no significant improvement after this we can the plan is to proceed to hospice. Family states that the patient has been becoming less responsive throughout the day. 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.A candidate for denosumab Hypertension Hypokalemia Hypokalemia Hypothyroidism Metabolic acidosis Multiple myeloma Peripheral neuropathy Pleural effusion Chronic stable rt pleural effusion likely 2/2 to Decompensated HFrEF ,PNA.Improving Pneumonia Resolved Recent non-ST elevation myocardial infarction Surgical History H/O cystoscopy H/O foot surgery H/O lithotripsy H/O: hysterectomy History of cholecystectomy History of mastectomy, subtotal History of right hip replacement History of thyroidectomy Port-A-Cath in place (07/06/20) Status post breast reduction Stented coronary artery Family History Mother Congestive heart failure Cancer breast and kidney CAD (coronary artery disease) Sister Cancer Grandmother Stroke Denies family history of Diabetes Clotting disorder Dementia Chronic kidney disease (CKD) Suicide Anesthesia complication Bleeding disorder Lung disease Social History Smoking and tobacco status: never smoked Second hand smoke exposure: No Smoking risk assessment/counseling performed?: Yes Alcohol intake: never Desire information about alcohol rehabilitation?: No Counseling given: No Caregiver/support person: Yes Lives independently: Yes Household members: spouse Housing: House Marital status: Current occupational status: retired History of recent travel: No Current gender identity: Female Physical Exam Const: COMMON NORMALS: no acute distress, average body habitus, no limitations, healthy appearing and well nourished HENMT: COMMON NORMALS: normocephalic, atraumatic and moist oral mucous membranes HEAD & SCALP: normocephalic and atraumatic Neck/C-Spine: COMMON NORMALS: no meningeal signs and no JVD Resp: COMMON NORMALS: normal respiratory effort, No retractions, No use of accessory muscles, clear to auscultation bilaterally and percussion normal AUSCULTATION: clear to auscultation bilaterally PERCUSSION: percussion normal Cardio: COMMON NORMALS: no JVD, regular rate, regular rhythm, S1 normal heart sound present, S2 normal heart sound present, No gallops present (Cardio), No clicks present (Cardio), No murmurs present (Cardio), No rub (Cardio) and Peripheral pulses 2+ throughout RATE: regular rate RHYTHM: regular rhythm HEART SOUNDS: S1 normal heart sound present and S2 normal heart sound present PERIPHERAL PULSES: Peripheral pulses 2+ throughout GI: COMMON NORMALS: Normal to inspection, nondistended, normoactive bowel sounds present, Soft to palpation, non-tender, No hepatosplenomegaly present, no masses and no bruits PALPATION: Yes Soft to palpation and Yes No hepatosplenomegaly present Neuro: SENSORIUM/ORIENTATION: Yes obtunded MENINGEAL SIGNS: Yes no meningeal signs Skin: COMMON NORMALS: no rashes or lesions noted, no wounds, turgor normal, no jaundice, no petechiae and no mottling GENERAL SKIN EXAM: no rashes or lesions noted and turgor normal Course Vital Signs: Vital signs: Vital Signs Temperature 98.5 F 08/14/20 21:18 Pulse Rate 81 08/14/20 23:43 Respiratory Rate 28 H 08/15/20 00:40 Blood Pressure 173/60 08/14/20 21:18 Pulse Oximetry 95 08/15/20 00:40 MDM - Altered Mental Status MDM Narrative: Medical decision making narrative: This 54-year-old female patient with multiple myeloma with significantly declining functional status was brought into the emergency department for evaluation. On arrival it was clear that she was doing very poorly and the family understood that she is likely terminal. In the emergency department she appeared to be septic and had neutropenia, lactic acidosis, severe hypocalcemia. Despite best efforts with fluids, antibiotics, the patient continued to decline and while she was in the emergency department the family opted for comfort measures and withdrew therapeutic measures. They therefore asked that antibiotics be discontinued, she had been on BiPAP due to respiratory failure and they would you the BiPAP. She was eventually admitted to the hospitalist service under comfort measures with the expectation that she is terminal. Medical Records: Attestation: I reviewed the patient's medical records. Lab Data: Attestation: I reviewed the patient's lab results. Labs: Lab Results 08/14/20 08/14/20 08/14/20 Range/Units 22:00 22:00 22:00 WBC 1.3 L (4.0-10.0) 10^3/ uL RBC 3.15 L (4.1-5.3) 10^6/u L Hgb 10.2 L (11.5-15.3) g/dL Hct 32.3 L (37.0-47.0) % MCV 102.5 H (81-99) fL MCH 32.4 (28.0-34.0) pg MCHC 31.6 (30.0-36.0) g/dL RDW 23.1 H (12.1-15.1) % Plt Count 56 L (130-400) 10^3/c mm MPV 10.9 H (7.4-10.4) fL Neut % (Auto) 59.5 % Lymph % (Auto) 34.1 % [place] % (Auto) 4.8 % Eos % (Auto) 0.8 % Baso % (Auto) 0.0 % Neut # (Auto) 0.75 L* (1.8-7.7) 10^3/u L Lymph # (Auto) 0.4 L (0.8-4.8) 10^3/u L [place] # (Auto) 0.1 L (0.2-0.9) 10^3/u L Eos # (Auto) 0.0 (0.0-0.8) 10^3/u L Baso # (Auto) 0.0 (0.0-0.1) 10^3/u L Nucleated RBC % (a uto) 1.6 % Nucleated RBCs # 0.0 /100WBC Sodium 133 L (136-145) mmol/L Potassium 3.4 L (3.5-5.1) mmol/L Chloride 103 (98-107) mmol/L Carbon Dioxide 23 (22-29) mmol/L Anion Gap 10.4 (5-19) BUN 29 H (8-23) mg/dL Creatinine 1.4 H (0.5-0.9) mg/dL GFR Calculation Not Reportable Glucose 74 (65-115) mg/dL Calculated Osmolal ity 280 L (285-295) mOsm/k g Lactic Acid 4.5 H* (0.5-2.2) mmol/L Calcium 14.4 H* (8.5-10.5) mg/dL Total Bilirubin 0.6 (0.15-1.2) mg/dL AST 36 H (0-32) U/L ALT 14 (0-33) U/L Alkaline Phosphata se 85 (35-105) IU/L C-Reactive Protein 7.3 H (0.0-4.9) mg/L Total Protein 11.2 H (6.6-8.7) g/dL Albumin 1.9 L (3.5-5.2) g/dL Globulin 9.3 H (1.3-4.6) g/dL Procalcitonin (0-0.5) ng/mL TSH (0.27-4.20) uIU/ mL Urine Color (Yellow) Urine Appearance (CLEAR) Urine pH (5-7) Ur Specific Gravit y (1.005-1.030) Urine Protein (Negative) Urine Glucose (UA) (Normal) Urine Ketones (Negative) Urine Blood (Negative) Urine Nitrate (Negative) Urine Bilirubin (Negative) Urine Urobilinogen (Negative) mg/dL Ur Leukocyte Chrissy ase (Negative) Urine RBC (0-2) /hpf Urine WBC (0-5) /hpf Ur Squamous Epith Cells (0-5) /hpf Amorphous Sediment Urine Bacteria (NONE) /hpf Hyaline Casts /lpf Urine Mucus /hpf 08/14/20 08/14/20 Range/Units 22:00 23:29 WBC (4.0-10.0) 10^3/ uL RBC (4.1-5.3) 10^6/u L Hgb (11.5-15.3) g/dL Hct (37.0-47.0) % MCV (81-99) fL MCH (28.0-34.0) pg MCHC (30.0-36.0) g/dL RDW (12.1-15.1) % Plt Count (130-400) 10^3/c mm MPV (7.4-10.4) fL Neut % (Auto) % Lymph % (Auto) % [place] % (Auto) % Eos % (Auto) % Baso % (Auto) % Neut # (Auto) (1.8-7.7) 10^3/u L Lymph # (Auto) (0.8-4.8) 10^3/u L [place] # (Auto) (0.2-0.9) 10^3/u L Eos # (Auto) (0.0-0.8) 10^3/u L Baso # (Auto) (0.0-0.1) 10^3/u L Nucleated RBC % (a uto) % Nucleated RBCs # /100WBC Sodium (136-145) mmol/L Potassium (3.5-5.1) mmol/L Chloride (98-107) mmol/L Carbon Dioxide (22-29) mmol/L Anion Gap (5-19) BUN (8-23) mg/dL Creatinine (0.5-0.9) mg/dL GFR Calculation Glucose (65-115) mg/dL Calculated Osmolal ity (285-295) mOsm/k g Lactic Acid (0.5-2.2) mmol/L Calcium (8.5-10.5) mg/dL Total Bilirubin (0.15-1.2) mg/dL AST (0-32) U/L ALT (0-33) U/L Alkaline Phosphata se (35-105) IU/L C-Reactive Protein (0.0-4.9) mg/L Total Protein (6.6-8.7) g/dL Albumin (3.5-5.2) g/dL Globulin (1.3-4.6) g/dL Procalcitonin 3.66 H (0-0.5) ng/mL TSH 44.53 H (0.27-4.20) uIU/ mL Urine Color Yellow (Yellow) Urine Appearance Sl hazy (CLEAR) Urine pH 5 (5-7) Ur Specific Gravit y 1.015 (1.005-1.030) Urine Protein Neg (Negative) Urine Glucose (UA) Norm (Normal) Urine Ketones Negative (Negative) Urine Blood 3+ H (Negative) Urine Nitrate Negative (Negative) Urine Bilirubin Neg (Negative) Urine Urobilinogen Norm (Negative) mg/dL Ur Leukocyte Chrissy ase Negative (Negative) Urine RBC 40-50 H (0-2) /hpf Urine WBC 10-15 H (0-5) /hpf Ur Squamous Epith Cells 0-4 H (0-5) /hpf Amorphous Sediment Not Reportable Urine Bacteria 3+ H (NONE) /hpf Hyaline Casts 10-15 H /lpf Urine Mucus 1+ /hpf Imaging Data^: CXR: Attestation: I personally reviewed and interpreted this imaging study as follows: Radiologist's impression: [address] [address]WP[place] ReportSigned Patient: Alta Red #: [id number]: [id number]#:[id number]/Sex: 84 / FADM Date: 08/14/20Loc: NAZo om/Bed:Attending Dr: Ordering Provider/Ordering MD: Julio Min MD, [facility] [place] Date of Service: 08/14/20 Procedure(s): XR chest 1V portable [id number] Accession Number(s): [id number] Report Number: [id number] PROCEDURE INFORMATION: Exam: XR Chest Exam date and time: 08/14/2020 9:21 PM Age: 84 years old Clinical indication: Fever; Prior surgery; Surgery type: Port; Additional info: Fever, AMS. Cancer patient TECHNIQUE: Imaging protocol: XR of the chest. Views: 1 view. COMPARISON: CR XR chest 1V portable [id number] 03/23/2020 11:36 AM FINDINGS: Tubes, catheters and devices: Left chest tunnel Port-A-Cath terminates mid SVC. Lungs: Hazy central ground-glass opacities. Emphysematous lung changes in the background. Pleural spaces: Bilateral pleural effusions greater on left than right. Negative for pneumothorax. Heart/Mediastinum: Moderate cardiac enlargement. Bones/joints: Demineralized bones. XR/XR chest 1V portable [id number] IMPRESSION: Fluid overload changes in the chest. Dictated By:Stevie MeyersinSigned By:Stevie MeyersinSphillip Date/Time:08/14/202DD/ 99 CT Head: Attestation: I personally reviewed and interpreted this imaging study as follows: Radiologist's impression: [address] [place], [place] [address]QI Scan ReportSigned Patient: Alta Red #: [id number]: [id number]#:[id number]/Sex: 84 / FADM Date: 08/14/20Loc: ERRoom/Bed:Attending Dr: Ordering Provider/Ordering MD: Julio Min MD, [facility] [place] Date of Service: 08/14/20 Procedure(s): CT head wo con* [id number] Accession Number(s): [id number] Report Number: [id number] PROCEDURE INFORMATION: Exam: CT Head Without Contrast Exam date and time: 08/14/2020 9:21 PM Age: 84 years old Clinical indication: Altered mental status/memory loss; Additional info: AMS TECHNIQUE: Imaging protocol: Computed tomography of the head without contrast. Radiation optimization: All CT scans at this facility use at least one of these dose optimization techniques: automated exposure control; mA and/or kV adjustment per patient size (includes targeted exams where dose is matched to clinical indication); or iterative reconstruction. COMPARISON: [place] [id number] 01/06/2016 10:49 AM RADIATION DOSE METRICS: Total DLP (mGy-cm): 3090.51 FINDINGS: Brain: There is moderate cerebral atrophy. There is moderate diffuse heterogeneity of the white matter attenuation, consistent with chronic white matter ischemic changes. Negative for intracranial hemorrhage. No midline shift of brain. [place] matter and white matter interfaces are preserved. Cerebral ventricles: No ventriculomegaly. Paranasal sinuses: Visualized sinuses are unremarkable. No fluid levels. Mastoid air cells: Visualized mastoid air cells are well aerated. Orbital cavity: Symmetric orbits. Vasculature: Intracranial atherosclerosis. Bones/joints: See Dental finding. Soft tissues: Unremarkable. Dental: Extensive small lucent lesions throughout the calvarium are new from 01/06/2016. No calvarial fractures. CT/CT head wo con* [id number] IMPRESSION: 1. Negative for acute intracranial abnormality. 2. Acute extensive small circumscribed lucent bone lesions throughout the calvarium which are new since 01/06/2016 and suspicious for malignancy such as sequela of multiple myeloma. Other marrow replacement process possible. Radiation Dose CTDIVOL = (mGy): DLP = 3090.51 (mGy-cm) Dictated By:Ana Meyers By:Ana Meyers Date/Time:08/14/202309DD/ 08 Discharge Plan Discharge Patient Disposition: Admitted As Inpatient Admit Provider: Cristal Pérez Clinical Impression: Acute respiratory failure with hypoxia, Hypercalcemia, Multiple myeloma, Encephalopathy Probable Cause of Probable cause of : Cardiac arrest due to other underlying condition Coding Level of Care Code ED Hand Almond Blancher for Kamila Dowell
--- NOTE | 2020-08-15 05:07 | PC.NURSE ---
Patient arrived to floor in ER bed, moved to patient bed x3 assist with draw sheet, patient noted to be having apneic episodes and to be unresponsive. While this nurse started admission, patient became pulseless and stopped breathing. Family members at bedside. Time of 0500, verified by this nurse and Phoebe Montgomery RN family states home to be [place]. [facility]. Doctor and house sup notified.
--- NOTE | 2020-08-15 06:28 | PC.NURSE ---
Post mortem care complete and MTS verified that patient was not a candidate for organ donation
--- NOTE | 2020-08-15 07:38 | PM.DDS ---
Discharge Providers DDS Date of Admission: 08/15/20 01:26 Date Summary Completed: 08/15/20 Attending Provider at Admission: Cristal Pérez MD Attending Provider at Discharge: Cristal Pérez MD Primary Care Provider: Shandra Lee MD DS Diagnoses Hospital Diagnoses (1) Encephalopathy: Problem details: Alta Red is a 84 year old female who has history of IgG kappa multiple myeloma, hypertension, type 2 diabetes, peripheral neuropathy, established coronary disease, degenerative arthritis, she is getting chemotherapy for multiple myeloma her recent chemotherapy session was 2 days ago, presented today with acute change in her mental status and febrile episode. Review of records revealed that she developed pulmonary edema secondary to daratumumab/carfilzomib, her functional status has been declining, she is not showing significant response to the treatment, she also has transfusion dependent anemia. She received 2 units PRBC in May. Patient is not able to provide any details, she was obtunded when entered the room, and daughter is at the bedside, daughters are endorsing that since initiation of chemotherapy her functional status has been declining, previously she was able to eat on her own and use restroom independently that has changed in last few weeks, 2 days before her arrival in the ER she was requiring spoon feeding and 2 person assist to go to the bathroom. Today before her arrival in the ER she was complaining of abdominal pain and was in a lot of distress. She had one episode of emesis at home as well. When her temperature was checked it was 100.7, she was experiencing rigors/chills, she asked for heating pads. Family put heating pad on her along multiple layers. And brought her to the ER for further evaluation. Diagnostics in the ER revealed pancytopenia, hyponatremia, hypokalemia, APOLONIA, hypercalcemia with high lactic acid, TSH 44, procalcitonin 3.6 Urinalysis consistent with hematuria and pyuria CT head negative for intracranial abnormality however acute extensive small circumscribed lucent bone lesion throughout calvarium consistent with multiple myeloma, chest x-ray consistent with fluid overload She was given vancomycin and Zosyn and was put on BiPAP, fluids were administered as well, family decided to pursue comfort measures in the ER before her admission in the hospital Acute encephalopathy with sepsis 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 Febrile episode at home, concern for aspiration pneumonia as well as she had one episode of emesis Received vancomycin and Zosyn in the ER along fluids, she was put on BiPAP as she was DNR/DNI For neutropenic fever, I had a lengthy discussion with the and 3 daughters regarding pancytopenia, neutropenic fever, encephalopathy, paraneoplastic syndrome, and with ongoing poor functional status & resistant hypercalcemia, prognostic factors. Family decided to pursue comfort measures. Family was given ample opportunity to ask questions, I explained the difference between palliative versus hospice care, they were given the option of pursuing palliative management with continuation of fluids and antibiotics however decided to pursue comfort measures only. Patient at 5 AM on 08/15/2020 (2) Pancytopenia: (3) Neutropenia: (4) Hypoxia: (5) Sepsis: Reason for Visit Reason for Visit: n/v/fever ca patient and dec loc Summary Additional Data Confirmation of as documented by pronouncing clinician: no pulse, no respirations, no heart sounds and pupils fixed and dilated Family: at bedside Additional persons at bedside: nursing staff Attending/PCP notified?: I am attending Was code activated?: No Autopsy requested?: No Advance directives?: No Hospice patient?: Yes Discharge Plan Discharge Patient Disposition: Probable Cause of Probable cause of : Cardiac arrest due to other underlying condition DS Attestations Time Spent in /Discharge Care*: less than 30 min Quality - AMI: AMI present?: No Quality - Stroke: CVA present?: No Quality - VTE: VTE present?: Yes Coding Level of Care Code Acute D[employer] for Kamila Dowell Diagnoses Encephalopathy G93.40 Pancytopenia D61.818 Neutropenia D70.9 Hypoxia R09.02 Sepsis A41.9
== END 2020-08-15 06:55 | disposition expired ==
LOC: ER 21:19 → MEDSURG 08-15 04:27
PROVIDERS: Absent Provider Internal Medicine Medical Oncology; Admitting Provider Internal Medicine; Emergency Provider Family Medicine; PCP Family Medicine; Visit Provider Internal Medicine
DX: G93.40 Encephalopathy, unspecified (principal); D61.818 Other pancytopenia; D70.9 Neutropenia, unspecified; R09.02 Hypoxemia; A41.9 Sepsis, unspecified organism; E11.42 Type 2 diabetes mellitus with diabetic polyneuropathy; I25.10 Atherosclerotic heart disease of native coronary artery without angina pectoris; C90.00 Multiple myeloma not having achieved remission; I11.0 Hypertensive heart disease with heart failure; I50.31 Acute diastolic (congestive) heart failure; M19.90 Unspecified osteoarthritis, unspecified site; E78.5 Hyperlipidemia, unspecified; E03.9 Hypothyroidism, unspecified; Z82.49 Family history of ischemic heart disease and other diseases of the circulatory system
CPT/HCPCS: 70450; 71045; 80053; 81001; 83605; 84145; 84443; 85025; 86140; 87040; 87077; 87086; 87186; 87205; 94660; 96365; 96367; 96375; 96376; 99291; G0378; J2270; J2405; J2543; J3370; J7030; J7050